=== PATIENT | male | born 1965 | race Two or more races ===

== ENCOUNTER 2019-12-08 11:15 | Inpatient (IN) | payer MEDICARE, OTHER ==
[~2019-12-08] VITALS: Ht 162.6 cm; Wt 123.8 kg
--- NOTE | 2019-12-08 11:21 | NUR ---
ED Nurse Note: Pt BIBA from [facility] d/t hyperglecemia. Per report at 10AM pt's accucheck is 515mg/dl. 15 units of insulin given, recheck done at 1040 with 438mg/dl. Pt is AOx4, VSS, on RA. Per report pt has hx of COPD, DM T1, CHF, HTN, Hypothyroidism, NKA. Pt is FULL CODE. Per pt he started having edema on bilat lower ext. Placed on bed, Dr. Gibson on bedside.
[2019-12-08 11:22] VITALS: BP 121/68
[2019-12-08 12:03] LABS: BASOPHILS % (AUTO) 1.3 % (0.0-2.0); HEMATOCRIT 36.8 % (42.0-52.0); LYMPHOCYTES % (AUTO) 24.4 % (20.0-45.0); MEAN CORPUSCULAR VOLUME 92 FL (80-99); MONOCYTES % (AUTO) 8.3 % (1.0-10.0); PLATELET COUNT 262 K/UL (150-450); RED BLOOD COUNT 4.01 M/UL (4.70-6.10); RED CELL DISTRIBUTION WIDTH 12.4 % (11.6-14.8)
[2019-12-08 12:12] LABS: ANION GAP 8 mmol/L (5-15); BLOOD UREA NITROGEN 21 mg/dL (7-18); CALCIUM 9.5 MG/DL (8.5-10.1); CARBON DIOXIDE 29 MMOL/L (21-32); CHLORIDE 101 MMOL/L (98-107); CREATININE 1.1 MG/DL (0.55-1.30); POTASSIUM 4.5 MMOL/L (3.5-5.1); SODIUM 138 MMOL/L (136-145)
[2019-12-08] MEDS ORDERED: BUPROPION HCL100 M1 ORAL (12:12)
[2019-12-08] MEDS ORDERED: MIRTAZAPINE7.5 MG ORAL (12:12)
[2019-12-08] MEDS ORDERED: METOPROLOL TART25 MG ORAL (12:12)
[2019-12-08] MEDS ORDERED: ATORVASTATIN CA40 MG ORAL (12:12)
[2019-12-08] MEDS ORDERED: AMBIEN5 MG ORAL (12:12)
[2019-12-08] MEDS ORDERED: ISOSORBIDE MONO60 M1 PO (12:12)
[2019-12-08] MEDS ORDERED: GABAPENTIN300 MG ORAL (12:12)
[2019-12-08] MEDS ORDERED: ASPIR 8181 MG ORAL (12:12)
[2019-12-08] MEDS ORDERED: STARLIX60 MG ORAL (12:12)
[2019-12-08] MEDS ORDERED: FUROSEMIDE40 MG ORAL (12:12)
[2019-12-08] MEDS ORDERED: LEVOTHYROXINE175 MCG ORAL (12:12)
[2019-12-08] MEDS ORDERED: CLOPIDOGREL300 MG ORAL (12:12)
[2019-12-08] MEDS ORDERED: LANTUS SOL100 UNIT/1 SUBQ (12:12)
[2019-12-08] MEDS ORDERED: PANTOPRAZOLE SO40 MG ORAL (12:12)
[2019-12-08] MEDS ORDERED: MORPHINE IR15 MG ORAL (12:12)
[2019-12-08] MEDS ORDERED: ACETAMINOPHEN325 M1 ORAL (12:12)
[2019-12-08 12:22] LABS: ALANINE AMINOTRANSFERASE 39 U/L (12-78); ALBUMIN 3.4 G/DL (3.4-5.0); ALBUMIN/GLOBULIN RATIO 0.9 (1.0-2.7); ALKALINE PHOSPHATASE 93 U/L (46-116); ASPARTATE AMINO TRANSFERASE 20 U/L (15-37); BILIRUBIN,TOTAL 0.2 MG/DL (0.2-1.0); CHOLESTEROL 157 MG/DL (< 200); HDL CHOLESTEROL 47 MG/DL (40-60); TRIGLYCERIDES 240 MG/DL (30-150)
[2019-12-08 12:25] VITALS: BP 143/76
--- NOTE | 2019-12-08 12:46 | Diagnostic Imaging Report ---
EXAM: XR Chest, 1 View CLINICAL HISTORY: SOB TECHNIQUE: Frontal view of the chest. COMPARISON: No relevant prior studies available. FINDINGS: Lungs: Hypoventilatory lungs. Bibasilar lung atelectasis. Linear atelectasis or scarring left lower lung. Pleural space: Unremarkable. No pneumothorax. Heart: Prominent cardiac silhouette may be projectional. Mediastinum: Unremarkable. Bones/joints: Median sternotomy. Vasculature: Vascularity within normal limits. Upper abdomen: Elevated right hemidiaphragm. IMPRESSION: Hypoventilatory lungs. Bibasilar lung atelectasis.
--- NOTE | 2019-12-08 12:49 | Emergency Room Report ---
History of Present Illness General Chief Complaint: Abnormal Labs Source: Patient, Medical Record Present Illness HPI Patient 54-year-old male who presented for increased chest discomfort as well as elevated blood sugar. Prior history of diabetes. He previously had history of cardiac disease previous sternotomy and bypass graft. Reports having intermittent chest discomfort for the past 1 week. Reports having increased lower extremity swelling. Allergies: Coded Allergies: No Known Allergies (Unverified , 12/08/19) Patient History Past Medical History: see triage record Reviewed Nursing Documentation: PMH: Agreed; PSxH: Agreed Nursing Documentation-PMH Past Medical History: No History, Except For Hx Cardiac Problems: Yes - ACS, CHF, STEMI, Edema, coronary angioplasty implant and graft Hx COPD: Yes Hx Diabetes: Yes - Type 1, prison insulin use Hx Gastrointestinal Problems: Yes - Liver cirrhosis, portal HTN, GERD with esophagitis, hepatitis A History Of Psychiatric Problem: Yes - Major depression Hx Neurological Problems: Yes - disc disorder Review of Systems All Other Systems: negative except mentioned in HPI Physical Exam Vital Signs Date Time Temp Pulse Resp B/P (MAP) Pulse Ox O2 Delivery O2 Flow Rate FiO2 12/08/19 11:20 98.1 82 16 121/68 (85) 92 Room Air Sp02 EP Interpretation: reviewed, normal General Appearance: normal inspection, no apparent distress, alert, GCS 15, obese, Chronically Ill Head: atraumatic ENT: normal ENT inspection, hearing 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, normal voice Neck: normal inspection, full range of motion, supple, no bony tend Respiratory: normal inspection, lungs clear, normal breath sounds, no respiratory distress, no retraction, no wheezing Cardiovascular #1: normal inspection, regular rate, rhythm, edema - 3+ edema Gastrointestinal: normal inspection, normal bowel sounds, non tender, soft, no guarding, no hernia Genitourinary: no CVA tenderness Musculoskeletal: normal inspection, back normal, normal range of motion Neurologic: alert, motor strength/tone normal, devulcanizer tender III-XII nml as tested, oriented x3, responsive, speech normal, normal inspection Psychiatric: normal inspection, judgement/insight normal, mood/affect normal Skin: no rash Medical Decision Making Diagnostic Impression: Primary Impression: Acute exacerbation of CHF (congestive heart failure) Additional Impressions: Hyperglycemia Chest pain ER Course Patient presented for chest discomfort and high blood sugar. Differential diagnosis include was not limited to congestive heart failure, unstable angina, myocardial infarction among others. Because of complexity of patient's case laboratory tests and imaging studies were ordered. Patient was noted to have nonspecific EKG changes. He had prior history of CABG. He was given Lasix due to pedal edema. Dr. Fermín Griggs was contacted for inpatient Labs Test 12/08/19 11:37 White Blood Count 7.0 K/UL (4.8-10.8) Red Blood Count 4.01 M/UL (4.70-6.10) Hemoglobin 13.0 G/DL (14.2-18.0) Hematocrit 36.8 % (42.0-52.0) Mean Corpuscular Volume 92 FL (80-99) Mean Corpuscular Hemoglobin 32.5 PG (27.0-31.0) Mean Corpuscular Hemoglobin Concent 35.4 G/DL (32.0-36.0) Red Cell Distribution Width 12.4 % (11.6-14.8) Platelet Count 262 K/UL (150-450) Mean Platelet Volume 6.5 FL (6.5-10.1) Neutrophils (%) (Auto) 62.0 % (45.0-75.0) Lymphocytes (%) (Auto) 24.4 % (20.0-45.0) Monocytes (%) (Auto) 8.3 % (1.0-10.0) Eosinophils (%) (Auto) 4.0 % (0.0-3.0) Basophils (%) (Auto) 1.3 % (0.0-2.0) Sodium Level 138 MMOL/L (136-145) Potassium Level 4.5 MMOL/L (3.5-5.1) Chloride Level 101 MMOL/L (98-107) Carbon Dioxide Level 29 MMOL/L (21-32) Anion Gap 8 mmol/L (5-15) Blood Urea Nitrogen 21 mg/dL (7-18) Creatinine 1.1 MG/DL (0.55-1.30) Estimat Glomerular Filtration Rate > 60 mL/min (>60) Glucose Level 438 MG/DL (74-106) Calcium Level 9.5 MG/DL (8.5-10.1) Total Bilirubin 0.2 MG/DL (0.2-1.0) Aspartate Amino Transf (AST/SGOT) 20 U/L (15-37) Alanine Aminotransferase (ALT/SGPT) 39 U/L (12-78) Alkaline Phosphatase 93 U/L (46-116) Troponin I 0.000 ng/mL (0.000-0.056) Pro-B-Type Natriuretic Peptide 106 pg/mL (0-125) Total Protein 7.4 G/DL (6.4-8.2) Albumin 3.4 G/DL (3.4-5.0) Globulin 4.0 g/dL Albumin/Globulin Ratio 0.9 (1.0-2.7) Triglycerides Level 240 MG/DL (30-150) Cholesterol Level 157 MG/DL (< 200) LDL Cholesterol 91 mg/dL (<100) HDL Cholesterol 47 MG/DL (40-60) Cholesterol/HDL Ratio 3.3 (3.3-4.4) Lipase 104 U/L (73-393) EKG Diagnostic Results Rate: normal Rhythm: NSR ST Segments: no acute changes Last Vital Signs Date Time Temp Pulse Resp B/P (MAP) Pulse Ox O2 Delivery O2 Flow Rate FiO2 12/08/19 12:25 98.1 84 14 143/76 96 Room Air Status: unchanged Disposition: ADMITTED INPATIENT Condition: Stable Referrals: Fermín Griggs DO (PCP) Dakota Gibson MD Dec 08, 2019 12:49
--- NOTE | 2019-12-08 13:24 | NUR ---
NURSE NOTES: Received report from ONEL Yoon in ER
--- NOTE | 2019-12-08 13:27 | NUR ---
NURSE NOTES: Notified Dr. Griggs of new admission and asked for orders
--- NOTE | 2019-12-08 13:28 | NUR ---
ED Nurse Note: Report given to David SYKES
[2019-12-08 14:00] VITALS: BP 131/76
--- NOTE | 2019-12-08 14:00 | NUR ---
NURSE NOTES: Received report from SIRIA Yoon RN. PT brought to telemetry room 203-2 via gurney for CHF exacerbation and hyperglycemia at [facility], BS at 100 at [facility] 515, pt is awake, a/o x4, excessively talking, able to follow commands and answer questions, pt is ambulatory with steady gait, noted bilateral pitting edema 1+ to lower extremities, weak pulses, diminished lungs and distant heart sounds, orders received from Dr. 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 Sidhu, RN will notify Dr. Griggs, assessment done and vitals obtain, see flowsheet, pt has Android phone and reading glasses at bedside, noted on belongings list and in system, pt oriented to room, call light, bed controls, hourly rounding, no smoking policy, plan of care, bed in lowest position, call light within reach, bed locked, pt sitting in chair.
--- NOTE | 2019-12-08 14:05 | NUR ---
TRANSFER TO TELEMETRY: Patient transferred to TELEMETRY as ordered, per DR. VERONICA REED. Report given to ONEL Michelle. Belongings and medications given to receiving RN. Family and or S/O informed of transfer.
--- NOTE | 2019-12-08 15:25 | NUR ---
NURSE NOTES: Pt states he does not want Dr. Sidhu on service, RN notified Dr. Griggs and he ordered Dr. Guthrie, RN notified MD Guthrie of consult RN also notified Dr. Maldonado and Steve Walker of consult
[2019-12-08] MEDS ORDERED: Morphine IR 15mg tab ORAL PRN (15:45)
[2019-12-08] MEDS ORDERED: Zolpidem 5mg tab ORAL PRN (15:45)
[2019-12-08 16:00] VITALS: BP 121/72
[2019-12-08] MEDS: Nateglinide 60mg tab ORAL SCH (17:18)
[2019-12-08] MEDS: NovoLOG Insulin Flexpen SUBQ SCH ×2 (17:20→21:39)
--- NOTE | 2019-12-08 19:41 | NUR ---
HAND-OFF: Report given to ONEL Morrow. PT asleep in bed.
--- NOTE | 2019-12-08 19:45 | NUR ---
NURSE NOTES: Received report from ONEL Michelle. Pt is sleeping at this time (has insomnia so did not wake pt) respirations even and unlabored, will assess pt thoroughly when awake, name on board, Per report, pt is a/o x4, garrulous talker when awake, is ambulatory with steady gait, bed is locked, in lowest position, call light within reach, resting comfortably in bed, will continue plan of care
[2019-12-08 20:00] VITALS: BP 100/49
[2019-12-08] MEDS: BuPROPion SR 150mg tab ORAL SCH (21:38)
[2019-12-08] MEDS: Atorvastatin 80mg tab ORAL SCH (21:38)
[2019-12-09 04:10] VITALS: BP 107/46
[2019-12-09 04:57] LABS: ANION GAP 8 mmol/L (5-15); BASOPHILS % (AUTO) 1.2 % (0.0-2.0); BLOOD UREA NITROGEN 19 mg/dL (7-18); CALCIUM 9.3 MG/DL (8.5-10.1); CARBON DIOXIDE 31 MMOL/L (21-32); CHLORIDE 100 MMOL/L (98-107); EOSINOPHILS % (AUTO) 3.7 % (0.0-3.0); HEMATOCRIT 35.5 % (42.0-52.0); HEMOGLOBIN 12.8 G/DL (14.2-18.0); LYMPHOCYTES % (AUTO) 26.6 % (20.0-45.0); MEAN CORPUSCULAR VOLUME 91 FL (80-99); MONOCYTES % (AUTO) 9.9 % (1.0-10.0); NEUTROPHILS % (AUTO) 58.6 % (45.0-75.0); PLATELET COUNT 248 K/UL (150-450); POTASSIUM 4.4 MMOL/L (3.5-5.1); RED CELL DISTRIBUTION WIDTH 12.3 % (11.6-14.8); SODIUM 139 MMOL/L (136-145); WHITE BLOOD COUNT 7.3 K/UL (4.8-10.8)
[2019-12-09 05:02] LABS: ALANINE AMINOTRANSFERASE 38 U/L (12-78); ALBUMIN/GLOBULIN RATIO 0.8 (1.0-2.7); ALKALINE PHOSPHATASE 83 U/L (46-116); ASPARTATE AMINO TRANSFERASE 17 U/L (15-37); BILIRUBIN,TOTAL 0.4 MG/DL (0.2-1.0)
[2019-12-09] MEDS: NovoLOG Insulin Flexpen SUBQ SCH ×7 (06:28→21:27)
--- NOTE | 2019-12-09 07:54 | NUR ---
HAND-OFF: Report given to Viviana SYKES.
[2019-12-09 08:00] VITALS: BP 121/66
--- NOTE | 2019-12-09 08:59 | Consultation ---
History of Present Illness General Date patient seen: Dec 09, 2019 Time patient seen: 08:00 - am Chief Complaint: LBP Referring physician: Anson Reason for Consultation: Pain Management Present Illness HPI This is a 54-year-old male who is being seen on previous hospital admissions now admitted under the care of Dr. Griggs due to CHF. We were consulted so patient has adequate pain control while here in the hospital. Allergies: Coded Allergies: No Known Allergies (Unverified , 12/08/19) Medication History Scheduled Aspirin* (Aspir 81*), 81 MG ORAL DAILY, (Reported) Atorvastatin Calcium* (Atorvastatin Calcium*), 80 MG ORAL BEDTIME, (Reported) Bupropion Sr* (Bupropion Sr*), 150 MG ORAL EVERY 12 HOURS, (Reported) Clopidogrel* (Clopidogrel*), 75 MG ORAL DAILY, (Reported) Furosemide* (Lasix*), 40 MG ORAL DAILY, (Reported) Gabapentin* (Gabapentin*), 300 MG ORAL BEDTIME, (Reported) Insulin Glargine (Lantus), 0 SUBQ BEDTIME, (Reported) Levothyroxine Sodium (Levothyroxine Sodium), 50 MCG ORAL DAILY, (Reported) Metoprolol Tartrate* (Metoprolol Tartrate*), 25 MG ORAL EVERY 12 HOURS, ( Reported) Mirtazapine* (Mirtazapine*), 7.5 MG ORAL BEDTIME, (Reported) Nateglinide* (Starlix*), 120 MG ORAL THREE TIMES A DAY, (Reported) Pantoprazole* (Pantoprazole*), 40 MG ORAL DAILY, (Reported) Scheduled PRN Acetaminophen* (Acetaminophen 325MG Tablet*), 650 MG ORAL Q4H PRN for Pain Scale (3-5), (Reported) Morphine HCl (Morphine Sulfate ER), 7.5 MG ORAL Q6H PRN for For Pain, (Reported) Zolpidem Tartrate* (Ambien*), 5 MG ORAL BEDTIME PRN for Insomnia, (Reported) Miscellaneous Medications Isosorbide Mononitrate (Isosorbide Mononitrate Er), 60 MG PO, (Reported) Patient History Healthcare decision maker Resuscitation status Full Code Advanced Directive on File No Past Medical/Surgical History Past Medical/Surgical History: (1) Acute exacerbation of congestive heart failure (2) Pain (3) Chest pain (4) Hyperglycemia (5) Acute exacerbation of CHF (congestive heart failure) Review of Systems ROS Narrative Denies rash, fever, chills, sweating, dizziness, drowsiness, blurred vision, sore throat, change in hearing or weight. He is complaining of generalized body pain. Physical Exam Physical Exam Narrative GENERAL: Alert, awake, and oriented. LUNGS: Decreased breath sounds bilaterally. HEART: S1, S2 regular. ABDOMEN: Soft Non-tender. EXTREMITIES: No cyanosis, no clubbing. NEUROLOGIC: Weakness noted in b/l UE and LE. Last 24 Hour Vital Signs Date Time Temp Pulse Resp B/P (MAP) Pulse Ox O2 Delivery O2 Flow Rate FiO2 12/09/19 08:10 Room Air 12/09/19 04:10 97.0 72 18 107/46 (66) 96 12/09/19 04:00 77 12/09/19 00:00 79 12/08/19 21:39 94 130/86 12/08/19 21:00 Room Air 12/08/19 20:00 98.1 88 16 100/49 (66) 92 12/08/19 20:00 89 12/08/19 16:00 97.6 86 19 121/72 (88) 94 12/08/19 14:43 84 12/08/19 14:05 98.1 78 14 129/96 99 Room Air 12/08/19 14:00 97.3 78 16 131/76 (94) 96 12/08/19 13:28 Room Air 12/08/19 12:25 98.1 84 14 143/76 96 Room Air 12/08/19 11:22 98.1 82 20 121/68 92 Room Air 12/08/19 11:20 98.1 82 16 121/68 (85) 92 Room Air Intake and Output 12/08/19 12/09/19 19:00 07:00 Intake Total 480 ml Balance 480 ml Intake Oral 480 ml # Voids 2 1 Laboratory Tests Test 12/08/19 11:37 12/09/19 04:40 White Blood Count 7.0 K/UL (4.8-10.8) 7.3 K/UL (4.8-10.8) Red Blood Count 4.01 M/UL (4.70-6.10) L 3.90 M/UL (4.70-6.10) L Hemoglobin 13.0 G/DL (14.2-18.0) L 12.8 G/DL (14.2-18.0) L Hematocrit 36.8 % (42.0-52.0) L 35.5 % (42.0-52.0) L Mean Corpuscular Volume 92 FL (80-99) 91 FL (80-99) Mean Corpuscular Hemoglobin 32.5 PG (27.0-31.0) H 32.8 PG (27.0-31.0) H Mean Corpuscular Hemoglobin Concent 35.4 G/DL (32.0-36.0) 36.0 G/DL (32.0-36.0) Red Cell Distribution Width 12.4 % (11.6-14.8) 12.3 % (11.6-14.8) Platelet Count 262 K/UL (150-450) 248 K/UL (150-450) Mean Platelet Volume 6.5 FL (6.5-10.1) 5.8 FL (6.5-10.1) L Neutrophils (%) (Auto) 62.0 % (45.0-75.0) 58.6 % (45.0-75.0) Lymphocytes (%) (Auto) 24.4 % (20.0-45.0) 26.6 % (20.0-45.0) Monocytes (%) (Auto) 8.3 % (1.0-10.0) 9.9 % (1.0-10.0) Eosinophils (%) (Auto) 4.0 % (0.0-3.0) H 3.7 % (0.0-3.0) H Basophils (%) (Auto) 1.3 % (0.0-2.0) 1.2 % (0.0-2.0) Sodium Level 138 MMOL/L (136-145) 139 MMOL/L (136-145) Potassium Level 4.5 MMOL/L (3.5-5.1) 4.4 MMOL/L (3.5-5.1) Chloride Level 101 MMOL/L (98-107) 100 MMOL/L (98-107) Carbon Dioxide Level 29 MMOL/L (21-32) 31 MMOL/L (21-32) Anion Gap 8 mmol/L (5-15) 8 mmol/L (5-15) Blood Urea Nitrogen 21 mg/dL (7-18) H 19 mg/dL (7-18) H Creatinine 1.1 MG/DL (0.55-1.30) 1.0 MG/DL (0.55-1.30) Estimat Glomerular Filtration Rate > 60 mL/min (>60) > 60 mL/min (>60) Glucose Level 438 MG/DL (74-106) H 352 MG/DL (74-106) H Calcium Level 9.5 MG/DL (8.5-10.1) 9.3 MG/DL (8.5-10.1) Total Bilirubin 0.2 MG/DL (0.2-1.0) 0.4 MG/DL (0.2-1.0) Aspartate Amino Transf (AST/SGOT) 20 U/L (15-37) 17 U/L (15-37) Alanine Aminotransferase (ALT/SGPT) 39 U/L (12-78) 38 U/L (12-78) Alkaline Phosphatase 93 U/L (46-116) 83 U/L (46-116) Troponin I 0.000 ng/mL (0.000-0.056) Pro-B-Type Natriuretic Peptide 106 pg/mL (0-125) Total Protein 7.4 G/DL (6.4-8.2) 6.8 G/DL (6.4-8.2) Albumin 3.4 G/DL (3.4-5.0) 3.0 G/DL (3.4-5.0) L Globulin 4.0 g/dL 3.8 g/dL Albumin/Globulin Ratio 0.9 (1.0-2.7) L 0.8 (1.0-2.7) L Triglycerides Level 240 MG/DL (30-150) H Cholesterol Level 157 MG/DL (< 200) LDL Cholesterol 91 mg/dL (<100) HDL Cholesterol 47 MG/DL (40-60) Cholesterol/HDL Ratio 3.3 (3.3-4.4) Lipase 104 U/L (73-393) Hemoglobin A1c 10.2 % (4.3-6.0) H Height (Feet): 5 Height (Inches): 4.00 Weight (Pounds): 223 Medications Current Medications Medications (Trade) Dose Ordered Sig/Rodney Route PRN Reason Start Time Stop Time Status Last Admin Dose Admin Acetaminophen (Tylenol) 650 mg Q4H PRN ORAL Pain Scale (3-5) 12/08/19 15:45 01/07/20 15:44 Aspirin (Ecotrin) 81 mg DAILY ORAL 12/09/19 09:00 01/08/20 08:59 Atorvastatin Calcium (Lipitor) 80 mg BEDTIME ORAL 12/08/19 21:00 01/07/20 20:59 12/08/19 21:38 Bupropion HCl (Wellbutrin SR) 150 mg EVERY 12 HOURS ORAL 12/08/19 21:00 01/07/20 20:59 12/08/19 21:38 Clopidogrel Bisulfate (Plavix) 75 mg DAILY ORAL 12/09/19 09:00 01/08/20 08:59 Dextrose (Dextrose 50%) 25 ml Q30M PRN IV Hypoglycemia 12/09/19 06:15 01/08/20 06:14 Dextrose (Dextrose 50%) 50 ml Q30M PRN IV Hypoglycemia 12/09/19 06:15 01/08/20 06:14 Furosemide (Lasix) 40 mg DAILY ORAL 12/09/19 09:00 01/08/20 08:59 Gabapentin (Neurontin) 300 mg BEDTIME ORAL 12/08/19 21:00 01/07/20 20:59 12/08/19 21:39 Insulin Aspart (NovoLOG) BEFORE MEALS AND HS SUBQ 12/08/19 16:30 01/07/20 16:29 12/09/19 06:28 Insulin Aspart (NovoLOG) 10 units NOVOTIAC SUBQ 12/09/19 06:30 01/08/20 06:29 12/09/19 06:29 Insulin Detemir (Levemir) 36 units DAILY SUBQ 12/09/19 09:00 01/08/20 08:59 Levothyroxine Sodium (Synthroid) 50 mcg DAILY@0630 ORAL 12/09/19 06:30 01/08/20 06:29 12/09/19 06:27 Metoprolol Tartrate (Lopressor) 25 mg EVERY 12 HOURS ORAL 12/08/19 21:00 01/07/20 20:59 12/08/19 21:39 Mirtazapine (Remeron) 7.5 mg BEDTIME ORAL 12/08/19 21:00 01/07/20 20:59 12/08/19 21:38 Morphine HCl (Morphine IR) 7.5 mg Q4H PRN ORAL For Pain 12/08/19 15:45 12/15/19 15:44 Nateglinide (Starlix) 120 mg THREE TIMES A DAY ORAL 12/08/19 18:00 01/07/20 17:59 12/08/19 17:18 Pantoprazole (Protonix) 40 mg DAILY ORAL 12/09/19 09:00 01/08/20 08:59 Sitagliptin Phosphate (Januvia) 100 mg ACBREAKFAST ORAL 12/09/19 06:30 01/08/20 06:29 12/09/19 06:27 Zolpidem Tartrate (Ambien) 5 mg HSPRN PRN ORAL Insomnia 12/08/19 15:45 12/15/19 15:44 Assessment/Plan Assessment/Plan: 1) Lumbar degenerative disk disease 2) Lumbar radiculopathy 3) Lumbar spondylosis 4) H/o polysubstance abuse Patient will be continued on Morphine as needed. D/w Dr. Bull and he concurred. Steve Walker Dec 09, 2019 08:59
[2019-12-09] MEDS: Aspirin EC 81mg tab ORAL SCH (09:07)
[2019-12-09] MEDS: Nateglinide 60mg tab ORAL SCH (09:07)
[2019-12-09] MEDS: BuPROPion SR 150mg tab ORAL SCH ×2 (09:08→21:26)
[2019-12-09] MEDS: Furosemide 40mg tab ORAL SCH (09:08)
[2019-12-09] MEDS: Levemir Flexpen SUBQ SCH (09:10)
[2019-12-09] MEDS ORDERED: Methocarbamol 500mg tab ORAL PRN (09:15)
[2019-12-09] MEDS: Morphine IR 15mg tab ORAL PRN (10:56)
[2019-12-09 12:00] VITALS: BP 135/81
--- NOTE | 2019-12-09 13:05 | NUR ---
P.T Note: P.T evaluation completed. Pt. is alert, O x 4 , pleasant and cooperative no major c/o pain but generalized soreness. Pt independent in all basic ADL/mobility and gait/locomotion and currently at baseline at this time. Skilled P.T service not needed at this time. DC P.T service. Thank you for this referral.
--- NOTE | 2019-12-09 13:25 | NUR ---
CASE MANAGEMENT:REVIEW 54 YR OLD MALE BIBA FROM [facility] CC: CHEST,BACK AND NECK PAIN. ELEVATED BS 515 SI: CHF EXACERBATION. HYPERGLYCEMIA. CHEST PAIN 98.1 82 16 121/68 92% ON RA GLUCOSE+438 IS: IV LASIX X2 INSULIN SQ CHEST XRAY : TO TELEMETRY IS: LOPRESSOR PO Q12 SS INSULIN AC+HS MORPHINE PO Q4HRS PRN ASA PO QD LASIX PO QD PLAVIX PO QD
--- NOTE | 2019-12-09 14:08 | NUR ---
RD ASSESSMENT & RECOMMENDATIONS SEE CARE ACTIVITY FOR COMPLETE ASSESSMENT DAILY ESTIMATED NEEDS: Needs based on DM, obesity, CHF/ 70kg abw 22-28 kcals/kg 0494-7513 total kcals 1-1.5 g protein/kg 70-105 g total protein 20-22 mL/kg 4380-[address] consult received from RN for diet education. Pt admitted for hyperglycemia, BG >500 at SNF. A1C 10.2, POC glu in the 300's currently. Triglyceride elevated as well @ 240. Pt on lipid lowering agent. Reviewed w/ pt what carbs are, different types of carbs, carb counting, making right food choices, preferred fluids, portion control, mindful eating, cardiac diet, exercise, wt loss, etc. Pt initially appeared defensive, stated if food is taken away, he feels like binge eating them. Towards the end of conversation and education, pt appeared more calm, receptive to teaching and to making changes. Pt agreed to changing diet from CCHO med to CCHO low for less carb servings per meal and increasing protein portions instead. NUTRITION DIAGNOSIS: Altered nutrition related lab values R/T diabetes, altered lipid metabolism as evidenced by elev BGs (352 438), POC glu (300's), A1C of 10.2, elev triglyceride (240). CURRENT DIET:CCHO MED, LOW NA -> CCHO LOW, CARDIAC, DOUBLE PROTEIN PORTIONS PO DIET RECOMMENDATIONS: CCHO LOW, CARDIAC + double protein portions ADDITIONAL RECOMMENDATIONS: * DM diet ed provided * Monitor BGs closely, monitor adherence to diet * Monitor lytes w/ Lasix, replete as needed
--- NOTE | 2019-12-09 15:45 | Consultation ---
DATE OF CONSULTATION: 12/09/2019 ENDOCRINOLOGY CONSULTATION CONSULTING PHYSICIAN: Shon Maldonado M.D. REFERRING PHYSICIAN: Fermín Griggs D.O. REASON FOR CONSULTATION: Diabetes management. HISTORY OF PRESENT ILLNESS: The patient is a 54-year-old male, who I know from his previous admission to [facility]. He has history of diabetes with high-dose insulin requirement and also has history of coronary artery disease, status post coronary artery bypass graft. The patient presented to the hospital from [facility] with elevated glucose and chest pain. I was called to manage diabetes. PAST MEDICAL HISTORY: 1. Type 2 diabetes, on insulin. 2. Coronary artery disease. 3. Hyperlipidemia. 4. Hypertension. 5. Hypothyroidism. 6. Depression. 7. Amphetamine abuse. PAST SURGICAL HISTORY: Coronary artery bypass graft. SOCIAL HISTORY: The patient has history of smoking, single. Used to use amphetamine. FAMILY HISTORY: Diabetes in brother, father, and mother. ALLERGIES TO MEDICATIONS: None. MEDICATIONS: As an outpatient reviewed and reconciled. REVIEW OF SYSTEMS: A 12-point review of systems was performed. Pertinent positives and negatives as mentioned in present illness. LABORATORY DATA: WBC 7.3, hemoglobin 12.8, hematocrit 35.5, platelets of 248. Sodium 139, potassium 4.4, chloride 100, bicarb 31, BUN 19, creatinine 1.0, glucose of 352. PHYSICAL EXAMINATION: VITAL SIGNS: Blood pressure 107/46, heart rate 76, temperature 97, respiratory rate of 12. HEENT: Pupils reactive to light. Sclerae anicteric. NECK: No JVD. No thyromegaly. LUNGS: Clear. HEART: Regular rate and rhythm. ABDOMEN: Positive bowel sounds. EXTREMITIES: No clubbing, cyanosis. Positive for edema. DIAGNOSES: 1. Diabetes, out of control. 2. Chest pain. 3. Hyperlipidemia. PLAN: 1. Start Levemir 36 units daily. 2. Start NovoLog 10 units before each meal. 3. Januvia 100 mg daily. 4. Nateglinide 120 mg before each meal. 5. Further adjustment according to blood glucose values. I will follow the patient closely during hospital stay. Thank you, Dr. Griggs, for the courtesy of this consultation. Shon Maldonado M.D. DR: REDDY JOB#: [id number] CC:
[2019-12-09 16:00] VITALS: BP 128/64
--- NOTE | 2019-12-09 16:00 | History and Physical Report ---
DATE OF ADMISSION: 12/08/2019 DATE AND TIME SEEN: 12/09/2019 at 9 a.m. CONSULTANTS: 1. Sarkis Guthrie M.D. 2. Shon Maldonado M.D. 3. Adam Smith M.D. 4. Leticia Bull M.D. CHIEF COMPLAINT: Chest pain, diabetes, hyperglycemia, low back pain, history of kidney stone. BRIEF HISTORY: This is a 54-year-old male from [facility], presented with above-mentioned diagnoses. Chest pain is still substernal. No radiation having for about a week, getting worse, came to [place], diagnosed with the above and also hyperglycemia, admitted to telemetry for further care. Currently, on bed, feeling a little bit better. No complaint. REVIEW OF SYSTEMS: Slight chest pain. Slight short of breath. No nausea, vomiting, or diarrhea. PAST MEDICAL HISTORY: Includes diabetes, hypertension, CHF, low back pain, kidney stone. PAST SURGICAL HISTORY: Cardiac stent. MEDICATIONS: Include methocarbamol, gabapentin, aspirin, clopidogrel, pantoprazole, insulin, levothyroxine, atorvastatin, gabapentin, metoprolol, mirtazapine, Tylenol, morphine, and furosemide. ALLERGIES: Denies. SOCIAL HISTORY: No smoking. No alcohol. No intravenous drug abuse. FAMILY HISTORY: Noncontributory. PHYSICAL EXAMINATION: GENERAL: Calm in bed, oriented x3, in no acute distress. VITAL SIGNS: Temperature is 97 degrees, pulse 72, respirations 18, blood pressure 107/46. CARDIOVASCULAR: No murmurs. LUNGS: . ABDOMEN: Bowel sounds positive. Nontender. Nondistended. EXTREMITIES: No cyanosis or edema. NEUROLOGIC: The patient moves all extremities, slightly weak. LABORATORY DATA: Hemoglobin and hematocrit 12.8/35, otherwise CBC is normal. BMP shows BUN 19, glucose 352, albumin 3.0. ASSESSMENT: 1. Chest pain. 2. Diabetes. 3. Hyperglycemia. 4. Low back pain. 5. Kidney stone. 6. Anaemia. 7. Malnutrition. 8. CHF. 9. Hypertension. PLAN: 1. Blood pressure, blood sugar, pain control. 2. Dietary followup. 3. Resume home medications. 4. PT and dietary evaluation. 5. CBC, BMP in the morning. Fermín Griggs D.O. DR: SURJIT JOB#: [id number] CC:
[2019-12-09 18:15] VITALS: BP 116/69
--- NOTE | 2019-12-09 18:27 | NUR ---
NURSE NOTES: pt states he feels "dizziness, like when my pressure goes low" RN checked BP 116-69 HR 78, pt states he feels "clammy" RN checked BS 190, pt ate dinner and has juice at bedside, pt offered medication and water, pt declined, will continue to monitor
--- NOTE | 2019-12-09 19:18 | NUR ---
HAND-OFF: Report given to ONEL Morrow.
--- NOTE | 2019-12-09 19:22 | NUR ---
NURSE NOTES: Received report from ONEL Michelle. Pt is sitting up in chair, respirations even and unlabored, awake alert and oriented x4, on room air. Extremely garrulous talker. Pt is ambulatory with steady gait, BRP, call light within reach, resting comfortably, will continue plan of care
[2019-12-09 20:00] VITALS: BP 98/55
[2019-12-09] MEDS: Atorvastatin 80mg tab ORAL SCH (21:26)
[2019-12-10] VITALS: BP 102/57
[2019-12-10 04:00] VITALS: BP 124/73
[2019-12-10] MEDS: NovoLOG Insulin Flexpen SUBQ SCH ×7 (06:30→22:01)
--- NOTE | 2019-12-10 06:47 | General Progress Note ---
Assessment/Plan Problem List: (1) Hypothyroid ICD Codes: E03.9 - Hypothyroidism, unspecified SNOMED: 10846879 (2) Acute exacerbation of CHF (congestive heart failure) ICD Codes: I50.9 - Heart failure, unspecified SNOMED: 288223349, 81673829235236 (3) Hyperglycemia ICD Codes: R73.9 - Hyperglycemia, unspecified SNOMED: 86319572 (4) Chest pain ICD Codes: R07.9 - Chest pain, unspecified SNOMED: 58727556 Assessment/Plan: continue Levemir 36 units qam continue Novolog 10 units ac tid + sliding scale ac / hs continue Starlix 120 mg ac tid continue Januvia 100 mg daily continue Levothyroxine 50 mcg daily Subjective Allergies: Coded Allergies: No Known Allergies (Unverified , 12/08/19) All Systems: reviewed and negative except above Subjective events noted glucose values are trending down Item Value Date Time Bedside Blood Glucose 151 mg/dl H 12/09/19 2127 Bedside Blood Glucose 190 mg/dl H 12/09/19 1832 Bedside Blood Glucose 278 mg/dl H 12/09/19 1216 Bedside Blood Glucose 369 mg/dl H 12/09/19 0910 Bedside Blood Glucose 369 mg/dl H 12/09/19 0629 Objective Last 24 Hour Vital Signs Date Time Temp Pulse Resp B/P (MAP) Pulse Ox O2 Delivery O2 Flow Rate FiO2 12/10/19 04:45 83 12/10/19 04:00 97.7 74 16 124/73 (90) 93 12/10/19 00:04 79 12/10/19 00:00 97.5 77 16 102/57 (72) 95 12/09/19 21:11 Room Air 12/09/19 21:00 79 98/55 12/09/19 20:00 97.9 79 18 98/55 (69) 94 12/09/19 20:00 87 12/09/19 18:15 78 116/69 (85) 12/09/19 16:00 96.8 80 19 128/64 (85) 100 12/09/19 15:29 75 12/09/19 12:00 97.6 75 20 135/81 (99) 96 12/09/19 11:52 75 12/09/19 11:26 98.2 12/09/19 09:09 88 121/66 12/09/19 08:10 Room Air 12/09/19 08:00 98.2 88 19 121/66 (84) 97 12/09/19 07:42 71 Intake and Output 12/09/19 12/10/19 19:00 07:00 # Voids 1 2 Height (Feet): 5 Height (Inches): 4.00 Weight (Pounds): 223 General Appearance: no apparent distress Neck: normal alignment Cardiovascular: normal rate Respiratory/Chest: crackles/rales Abdomen: normal bowel sounds Pelvis: normal external exam Objective Current Medications Medications (Trade) Dose Ordered Sig/Rodney Route PRN Reason Start Time Stop Time Status Last Admin Dose Admin Acetaminophen (Tylenol) 650 mg Q4H PRN ORAL Pain Scale (3-5) 12/08/19 15:45 01/07/20 15:44 Aspirin (Ecotrin) 81 mg DAILY ORAL 12/09/19 09:00 01/08/20 08:59 12/09/19 09:07 Atorvastatin Calcium (Lipitor) 80 mg BEDTIME ORAL 12/08/19 21:00 01/07/20 20:59 12/09/19 21:26 Bupropion HCl (Wellbutrin SR) 150 mg EVERY 12 HOURS ORAL 12/08/19 21:00 01/07/20 20:59 12/09/19 21:26 Clopidogrel Bisulfate (Plavix) 75 mg DAILY ORAL 12/09/19 09:00 01/08/20 08:59 12/09/19 09:08 Dextrose (Dextrose 50%) 25 ml Q30M PRN IV Hypoglycemia 12/09/19 06:15 01/08/20 06:14 Dextrose (Dextrose 50%) 50 ml Q30M PRN IV Hypoglycemia 12/09/19 06:15 01/08/20 06:14 Furosemide (Lasix) 40 mg DAILY ORAL 12/09/19 09:00 01/08/20 08:59 12/09/19 09:08 Gabapentin (Neurontin) 300 mg BEDTIME ORAL 12/08/19 21:00 01/07/20 20:59 12/09/19 21:26 Gabapentin (Neurontin) 300 mg THREE TIMES A DAY ORAL 12/09/19 10:00 01/08/20 09:59 12/09/19 17:29 Insulin Aspart (NovoLOG) BEFORE MEALS AND HS SUBQ 12/08/19 16:30 01/07/20 16:29 12/09/19 21:27 Insulin Aspart (NovoLOG) 10 units NOVOTIAC SUBQ 12/09/19 06:30 01/08/20 06:29 12/09/19 17:34 Insulin Detemir (Levemir) 36 units DAILY SUBQ 12/09/19 09:00 01/08/20 08:59 12/09/19 09:10 Levothyroxine Sodium (Synthroid) 50 mcg DAILY@0630 ORAL 12/09/19 06:30 01/08/20 06:29 12/09/19 06:27 Lidocaine (Lidoderm 5% PATCH) 1 patch DAILY TDERMAL 12/09/19 10:00 01/08/20 09:59 12/09/19 10:54 Methocarbamol (Robaxin) 500 mg Q8H PRN ORAL muscle spasm 12/09/19 09:15 01/08/20 09:14 Metoprolol Tartrate (Lopressor) 25 mg EVERY 12 HOURS ORAL 12/08/19 21:00 01/07/20 20:59 12/09/19 09:09 Mirtazapine (Remeron) 7.5 mg BEDTIME ORAL 12/08/19 21:00 01/07/20 20:59 12/09/19 21:26 Morphine HCl (Morphine IR) 7.5 mg Q4H PRN ORAL For Pain 12/08/19 15:45 12/15/19 15:44 12/09/19 10:56 Nateglinide (Starlix) 120 mg THREE TIMES A DAY ORAL 12/09/19 13:00 01/05/20 12:59 12/09/19 17:29 Pantoprazole (Protonix) 40 mg DAILY ORAL 12/09/19 09:00 01/08/20 08:59 12/09/19 09:09 Sitagliptin Phosphate (Januvia) 100 mg ACBREAKFAST ORAL 12/09/19 06:30 01/08/20 06:29 12/09/19 06:27 Zolpidem Tartrate (Ambien) 5 mg HSPRN PRN ORAL Insomnia 12/08/19 15:45 12/15/19 15:44 Shon Maldonado MD Dec 10, 2019 06:47
[2019-12-10 07:25] LABS: BASOPHILS % (AUTO) 1.1 % (0.0-2.0); EOSINOPHILS % (AUTO) 3.4 % (0.0-3.0); HEMATOCRIT 36.2 % (42.0-52.0); HEMOGLOBIN 13.2 G/DL (14.2-18.0); LYMPHOCYTES % (AUTO) 24.1 % (20.0-45.0); MEAN CORPUSCULAR VOLUME 91 FL (80-99); NEUTROPHILS % (AUTO) 62.5 % (45.0-75.0); PLATELET COUNT 253 K/UL (150-450); RED BLOOD COUNT 3.96 M/UL (4.70-6.10); RED CELL DISTRIBUTION WIDTH 12.4 % (11.6-14.8); WHITE BLOOD COUNT 7.9 K/UL (4.8-10.8)
--- NOTE | 2019-12-10 07:49 | NUR ---
HAND-OFF: Report given to ONEL Sesay.
[2019-12-10 07:53] LABS: ANION GAP 8 mmol/L (5-15); BLOOD UREA NITROGEN 26 mg/dL (7-18); CALCIUM 9.3 MG/DL (8.5-10.1); CARBON DIOXIDE 29 MMOL/L (21-32); CHLORIDE 108 MMOL/L (98-107); CREATININE 1.2 MG/DL (0.55-1.30); POTASSIUM 4.8 MMOL/L (3.5-5.1); SODIUM 145 MMOL/L (136-145)
[2019-12-10 08:00] VITALS: BP 153/82
--- NOTE | 2019-12-10 08:00 | NUR ---
NURSE NOTES: Pt awake/alert sitting in a chair, breathing easily on room air, denies SOB but c/o chronic bilateral flank pain 2ndary to hx of renal calc. Vital signs stable with SR @ 82 on monitor. IV access left wrist, flushed with 10 ml NS and locked. Pt has +1/2 edema BLE. Bed left in low position, side rails up x 2 and call light left near pt's hand.
--- NOTE | 2019-12-10 09:02 | General Progress Note ---
Assessment/Plan Assessment/Plan: 1) Lumbar degenerative disk disease 2) Lumbar radiculopathy 3) Lumbar spondylosis 4) H/o polysubstance abuse Patient will be continued on Morphine as needed. D/w Dr. Bull and he concurred. Subjective Date patient seen: Dec 11, 2019 Time patient seen: 08:15 - am Constitutional: Reports: no symptoms HEENT: Reports: no symptoms Cardiovascular: Reports: no symptoms Respiratory: Reports: no symptoms Gastrointestinal/Abdominal: Reports: no symptoms Genitourinary: Reports: no symptoms Neurologic/Psychiatric: Reports: no symptoms Endocrine: Reports: no symptoms Hematologic/Lymphatic: Reports: no symptoms Allergies: Coded Allergies: No Known Allergies (Unverified , 12/08/19) Subjective He is doing well pain has been stable on the Morphine. Has no new complaints at this time. Objective Last 24 Hour Vital Signs Date Time Temp Pulse Resp B/P (MAP) Pulse Ox O2 Delivery O2 Flow Rate FiO2 12/10/19 08:48 Room Air 12/10/19 04:45 83 12/10/19 04:00 97.7 74 16 124/73 (90) 93 12/10/19 00:04 79 12/10/19 00:00 97.5 77 16 102/57 (72) 95 12/09/19 21:11 Room Air 12/09/19 21:00 79 98/55 12/09/19 20:00 97.9 79 18 98/55 (69) 94 12/09/19 20:00 87 12/09/19 18:15 78 116/69 (85) 12/09/19 16:00 96.8 80 19 128/64 (85) 100 12/09/19 15:29 75 12/09/19 12:00 97.6 75 20 135/81 (99) 96 12/09/19 11:52 75 12/09/19 11:26 98.2 12/09/19 09:09 88 121/66 Intake and Output 12/09/19 12/10/19 19:00 07:00 # Voids 1 4 Laboratory Tests 12/10/19 06:50: White Blood Count 7.9, Red Blood Count 3.96L, Hemoglobin 13.2L, Hematocrit 36.2L , Mean Corpuscular Volume 91, Mean Corpuscular Hemoglobin 33.3H, Mean Corpuscular Hemoglobin Concent 36.5H, Red Cell Distribution Width 12.4, Platelet Count 253, Mean Platelet Volume 5.9L, Neutrophils (%) (Auto) 62.5, Lymphocytes (%) (Auto) 24.1, Monocytes (%) (Auto) 9.0, Eosinophils (%) (Auto) 3.4H, Basophils (%) (Auto) 1.1, Sodium Level 145, Potassium Level 4.8, Chloride Level 108H, Carbon Dioxide Level 29, Anion Gap 8, Blood Urea Nitrogen 26H, Creatinine 1.2, Estimat Glomerular Filtration Rate > 60, Glucose Level 304H, Calcium Level 9.3 Height (Feet): 5 Height (Inches): 4.00 Weight (Pounds): 223 General Appearance: no apparent distress, alert EENT: PERRL/EOMI, normal ENT inspection Neck: non-tender, normal alignment Cardiovascular: normal peripheral pulses, normal rate Respiratory/Chest: lungs clear, normal breath sounds Abdomen: non tender, soft Extremities: non-tender Edema: no edema noted Generalized Neurologic: alert, oriented x 3 Skin: normal pigmentation Steve Walker Dec 10, 2019 09:01
[2019-12-10] MEDS: Aspirin EC 81mg tab ORAL SCH (09:05)
[2019-12-10] MEDS: BuPROPion SR 150mg tab ORAL SCH (09:06)
[2019-12-10] MEDS: Furosemide 40mg tab ORAL SCH (09:07)
[2019-12-10] MEDS: Levemir Flexpen SUBQ SCH (09:38)
--- NOTE | 2019-12-10 11:45 | NUR ---
NURSE NOTES: Received report from Lázaro/RN, Observed sitting on bed, On room air, no acute distress/SOB noted. Breathing evenly and unlabored. Chika pain at this time. IV on left wrist 20G, patent, and asymptomatic, Saline locked. Bed in low position and locked, Bed alarm engaged. Call light within reach, Encouraged to use call light when needed. Will continue plan of care.
[2019-12-10 12:00] VITALS: BP 133/71
[2019-12-10] MEDS: Morphine IR 15mg tab ORAL PRN (13:42)
--- NOTE | 2019-12-10 13:58 | General Progress Note ---
Assessment/Plan Problem List: (1) Diabetes ICD Codes: E11.9 - Type 2 diabetes mellitus without complications SNOMED: 92228547 (2) HTN (hypertension) ICD Codes: I10 - Essential (primary) hypertension SNOMED: 76913803 (3) Malnutrition ICD Codes: E46 - Unspecified protein-calorie malnutrition SNOMED: 48178704 (4) Chest pain ICD Codes: R07.9 - Chest pain, unspecified SNOMED: 66039271 (5) Hyperglycemia ICD Codes: R73.9 - Hyperglycemia, unspecified SNOMED: 32467509 (6) Pain ICD Codes: R52 - Pain, unspecified SNOMED: 18815262 (7) Acute exacerbation of CHF (congestive heart failure) ICD Codes: I50.9 - Heart failure, unspecified SNOMED: 552373719, 68363284528776 (8) Hypothyroid ICD Codes: E03.9 - Hypothyroidism, unspecified SNOMED: 67267607 Status: unchanged Assessment/Plan: pt diet bp pain control cbc bmp am Subjective Constitutional: Reports: weakness Allergies: Coded Allergies: No Known Allergies (Unverified , 12/08/19) All Systems: reviewed and negative except above Subjective sl anxious in bed sl cp Objective Last 24 Hour Vital Signs Date Time Temp Pulse Resp B/P (MAP) Pulse Ox O2 Delivery O2 Flow Rate FiO2 12/10/19 09:06 83 124/73 12/10/19 08:48 Room Air 12/10/19 08:00 96.8 79 20 153/82 (105) 94 12/10/19 04:45 83 12/10/19 04:00 97.7 74 16 124/73 (90) 93 12/10/19 00:04 79 12/10/19 00:00 97.5 77 16 102/57 (72) 95 12/09/19 21:11 Room Air 12/09/19 21:00 79 98/55 12/09/19 20:00 97.9 79 18 98/55 (69) 94 12/09/19 20:00 87 12/09/19 18:15 78 116/69 (85) 12/09/19 16:00 96.8 80 19 128/64 (85) 100 12/09/19 15:29 75 Intake and Output 12/09/19 12/10/19 19:00 07:00 # Voids 1 4 Laboratory Tests 12/10/19 06:50: White Blood Count 7.9, Red Blood Count 3.96L, Hemoglobin 13.2L, Hematocrit 36.2L , Mean Corpuscular Volume 91, Mean Corpuscular Hemoglobin 33.3H, Mean Corpuscular Hemoglobin Concent 36.5H, Red Cell Distribution Width 12.4, Platelet Count 253, Mean Platelet Volume 5.9L, Neutrophils (%) (Auto) 62.5, Lymphocytes (%) (Auto) 24.1, Monocytes (%) (Auto) 9.0, Eosinophils (%) (Auto) 3.4H, Basophils (%) (Auto) 1.1, Sodium Level 145, Potassium Level 4.8, Chloride Level 108H, Carbon Dioxide Level 29, Anion Gap 8, Blood Urea Nitrogen 26H, Creatinine 1.2, Estimat Glomerular Filtration Rate > 60, Glucose Level 304H, Calcium Level 9.3 Height (Feet): 5 Height (Inches): 4.00 Weight (Pounds): 223 General Appearance: alert EENT: normal ENT inspection Neck: normal alignment Cardiovascular: normal peripheral pulses, normal rate, regular rhythm Respiratory/Chest: chest wall non-tender, lungs clear, normal breath sounds Abdomen: normal bowel sounds, non tender, soft Extremities: normal inspection Edema: no edema noted Arm (L), no edema noted Arm (R), no edema noted Leg (L), no edema noted Leg (R), no edema noted Pedal (L), no edema noted Pedal (R), no edema noted Generalized Neurologic: responsive, motor weakness Skin: normal pigmentation, warm/dry Fermín Griggs DO Dec 10, 2019 13:58
[2019-12-10 16:00] VITALS: BP 117/70
--- NOTE | 2019-12-10 17:49 | Cardiology Progress Note ---
Assessment/Plan Assessment/Plan [id number] Objective Last 24 Hour Vital Signs Date Time Temp Pulse Resp B/P (MAP) Pulse Ox O2 Delivery O2 Flow Rate FiO2 12/10/19 12:00 97.7 76 20 133/71 (91) 95 12/10/19 12:00 72 12/10/19 09:06 83 124/73 12/10/19 08:48 Room Air 12/10/19 08:00 96.8 79 20 153/82 (105) 94 12/10/19 04:45 83 12/10/19 04:00 97.7 74 16 124/73 (90) 93 12/10/19 00:04 79 12/10/19 00:00 97.5 77 16 102/57 (72) 95 12/09/19 21:11 Room Air 12/09/19 21:00 79 98/55 12/09/19 20:00 97.9 79 18 98/55 (69) 94 12/09/19 20:00 87 12/09/19 18:15 78 116/69 (85) Intake and Output 12/09/19 12/10/19 19:00 07:00 # Voids 1 4 Laboratory Tests Test 12/10/19 06:50 White Blood Count 7.9 K/UL (4.8-10.8) Red Blood Count 3.96 M/UL (4.70-6.10) L Hemoglobin 13.2 G/DL (14.2-18.0) L Hematocrit 36.2 % (42.0-52.0) L Mean Corpuscular Volume 91 FL (80-99) Mean Corpuscular Hemoglobin 33.3 PG (27.0-31.0) H Mean Corpuscular Hemoglobin Concent 36.5 G/DL (32.0-36.0) H Red Cell Distribution Width 12.4 % (11.6-14.8) Platelet Count 253 K/UL (150-450) Mean Platelet Volume 5.9 FL (6.5-10.1) L Neutrophils (%) (Auto) 62.5 % (45.0-75.0) Lymphocytes (%) (Auto) 24.1 % (20.0-45.0) Monocytes (%) (Auto) 9.0 % (1.0-10.0) Eosinophils (%) (Auto) 3.4 % (0.0-3.0) H Basophils (%) (Auto) 1.1 % (0.0-2.0) Sodium Level 145 MMOL/L (136-145) Potassium Level 4.8 MMOL/L (3.5-5.1) Chloride Level 108 MMOL/L (98-107) H Carbon Dioxide Level 29 MMOL/L (21-32) Anion Gap 8 mmol/L (5-15) Blood Urea Nitrogen 26 mg/dL (7-18) H Creatinine 1.2 MG/DL (0.55-1.30) Estimat Glomerular Filtration Rate > 60 mL/min (>60) Glucose Level 304 MG/DL (74-106) H Calcium Level 9.3 MG/DL (8.5-10.1) Microbiology Date/Time Source Procedure Growth Status 12/08/19 12:17 Nasal Nares MRSA Culture - Final NO METHICILLIN RESISTANT STAPH AUREUS... Complete 12/08/19 12:17 Rectum VRE Culture - Final NO VANCOMYCIN RESISTANT ENTEROCOCCUS ... Complete Sarkis Guthrie MD Dec 10, 2019 17:49
[2019-12-10] MEDS ORDERED: Nitroglycerin Subl 0.4mg tab SL PRN (18:00)
[2019-12-10] MEDS: Nitroglycerin 2% oint pkt TOPIC SCH (18:49)
--- NOTE | 2019-12-10 19:39 | NUR ---
HAND-OFF: Report given to Odalys/RN, Patient is in stable condition. Endorsed plan of care.
--- NOTE | 2019-12-10 19:40 | NUR ---
NURSE NOTES: Received report from Ani/RN, Observed pt sitting up in bed, On room air, no acute distress/SOB noted. Breathing evenly and unlabored. Denies pain at this time. IV on left wrist 20G, patent, and asymptomatic, Saline locked. Bed in low position and locked, Bed alarm on. Call light within reach, Encouraged to use call light when needed. Will continue plan of care.
[2019-12-10 20:00] VITALS: BP 133/64
--- NOTE | 2019-12-10 20:15 | Consultation ---
DATE OF CONSULTATION: 12/10/2019 CONSULTING PHYSICIAN: Kiko Botello M.D. HISTORY OF PRESENT ILLNESS: The patient is a 54-year-old male, who is well known to this physician from previous encounter. The patient has a history of chest pain, obesity, and lower extremity edema. The patient keeps going to different hospitals for the chest pain. The patient is still concerned about his heart issues, has medication seeking behaviors. PAST PSYCHIATRIC HISTORY: Anxiety and depression. PAST MEDICAL HISTORY: Significant for chest pain, shortness of breath, obesity, congestive heart failure, hypertension, and diabetes. ALLERGIES: No known drug allergies. SUBSTANCE ABUSE HISTORY: No known history of illicit drug use or alcohol. MENTAL STATUS EXAMINATION: The patient is alert and oriented times to self, place, situation, and date. Mood is anxious. Affect is constricted, congruent with mood. Thought process is linear and goal oriented. Thought content, no suicidal or homicidal ideation. Cognition is intact. Insight and judgment is fair. ASSESSMENT: AXIS I: Major depressive disorder. Rule out somatoform disorder. AXIS II: Deferred. AXIS III: As above. AXIS IV: Low. AXIS V: 25. PLAN: 1. The patient will be started on Wellbutrin 150 mg in the morning. DC the 150 mg at bedtime. 2. Remeron. 3. Provide the patient with reality orientation and supportive therapy. Kiko Botello M.D. DR: SONYA JOB#: [id number] CC:
[2019-12-10] MEDS: Atorvastatin 80mg tab ORAL SCH (21:57)
[2019-12-11] VITALS: BP 134/82
--- NOTE | 2019-12-11 02:15 | Consultation ---
DATE OF CONSULTATION: 12/10/2019 CARDIOLOGY CONSULTATION CONSULTING PHYSICIAN: Sarkis Guthrie M.D. REFERRING PHYSICIAN: Fermín Griggs D.O. REASON FOR REFERRAL: Chest pain. HISTORY OF PRESENT ILLNESS: This is a middle-aged gentleman, who has a history of coronary artery disease and bypass surgery and stents on several occasions. Apparently according to self, he has had episodes of chest pain that has been ongoing but used to be less frequent than it is now. Every 2 months or so, he would have some pain. Now, he is having it on a more frequent basis. The pain is there most of the time. He has had several hospitalizations and different cardiologists have told him that "it is all in his head." Last time, he had intervention was in July 2019 at [facility]. He said one stent was put in. He was told that there are other blood vessels that were narrowed too but apparently too small to do anything about it. He cannot really identify any relieving or exacerbating factors. The pain is intermittent and he cannot remember how long it lasted but may be long time and usually he comes to the hospital when he had these long episodes of chest pain and he was told that this is all in his head. He uses two pillows with head of bed elevation. He has shortness of breath on exertion. He has dizziness on standing. He has occasional palpitations. PAST MEDICAL HISTORY: Positive for coronary artery disease, hypertension, hyperlipidemia, history of coronary artery bypass grafting, diabetes mellitus. He has had history of heart attack when he had his bypass surgery. No cancer. No stroke. No hepatitis or tuberculosis. No asthma. No emphysema. No ulcers. He does have kidney stones. No liver problems, thyroid problems, anemia, arthritis, HIV or AIDS, or blood clots anywhere. ALLERGIES: He denies any allergies to medications. SOCIAL HISTORY: He quit smoking alcohol and drugs about 30 years ago. REVIEW OF SYSTEMS: GASTROINTESTINAL: He has had nausea and constipation. GENITOURINARY: He has kidney stones. PULMONARY: No coughing or wheezing. CONSTITUTIONAL: He has some sweats at times. NEUROLOGIC: Numbness and tingling sensation in his left arm. PHYSICAL EXAMINATION: GENERAL: Shows him to be overweight middle-aged gentleman, in no respiratory distress. HEENT: Unremarkable. NECK: Supple. No jugular venous distention. LUNGS: Appear to be clear to auscultation and percussion. CARDIAC: Regular rate and rhythm. No heaves or thrills noted. ABDOMEN: Soft and obese. Positive bowel sounds. Nontender. EXTREMITIES: There is 2+ edema in the lower extremities bilaterally. He was examined sitting in upright position. LABORATORY AND DIAGNOSTIC DATA: EKG showed normal sinus rhythm. No ST-T abnormalities on the EKG. Blood tests, his white count is 7.9, hemoglobin 13.2, and platelet count of 253. Cardiac enzymes on one occasion was negative on 12/08/2019 and has not been repeated. Sodium 145, potassium 4.8, chloride 108, bicarb 29, BUN of 26, creatinine of 1.2, and glucose of 304. His A1c of 10.2. Calcium is 9.2. His chest x-ray shows hyperinflated lungs, bibasilar lung atelectasis. ASSESSMENT AND PLAN: 1. Chest pain, chronic, recurrent. 2. Coronary artery disease, status post coronary artery bypass graft and multiple stents. 3. Diabetes, poor control. 4. Hypertension. 5. Hyperlipidemia. 6. Obesity. This patient was seen in cardiac consultation. The patient's electrocardiogram is unremarkable. The patient may require repeat cardiac enzymes and checking an EKG. Echocardiogram should be performed if not done previously and he may require further testing. The patient is very confrontation indicating that he has not gotten along with several other cardiologists and he continues to have pain and he has been told that this is all in his head. Nevertheless, [facility] data has been reviewed and his last echocardiogram at [facility] was last year of 45% ejection fraction with normal wall motion apparently at that time. His last myocardial perfusion imaging was in July 2019 and that showed 2% reversible and 6% fixed and his last cardiac catheterization back in July, left main has no disease, LAD tapers to 1.5 mm from 3.5 mm proximally and patent stents are diffuse but no significant stenosis, left circumflex artery in the circumflex, multiple significant obtuse marginals, patent stents and no significant stenosis and right coronary artery patent stent, no significant stenosis, PAUL to diagonal branch was patent, saphenous vein graft to obtuse marginal has 70% to 80% proximal disease and this was the vessel that was intervened. Proximal saphenous vein graft, distal saphenous vein graft, and ostial saphenous graft by Dr. Cabrera back in July 2019 at [facility]. What he can have is repeat cardiac enzymes. If cardiac enzymes are normal, then he may be better off having a myocardial perfusion imaging. He has a notation at [facility] by other cardiologists, who have seen him including Dr. Xiao, who know him well and indicates that he has usually not had any significant myocardial infarction. Nevertheless, because of his persistent symptoms, may be related to small vessel disease that he may be just treated with medications. Sarkis Guthrie M.D. DR: José Antonio JOB#: [id number] CC:
[2019-12-11 04:00] VITALS: BP 128/72
[2019-12-11] MEDS: Nitroglycerin 2% oint pkt TOPIC SCH ×3 (06:21→17:32)
[2019-12-11] MEDS: NovoLOG Insulin Flexpen SUBQ SCH ×7 (06:27→21:26)
[2019-12-11] MEDS: Morphine IR 15mg tab ORAL PRN ×2 (06:43→15:53)
[2019-12-11 08:00] VITALS: BP 130/70
--- NOTE | 2019-12-11 08:00 | NUR ---
NURSE NOTES: Received report from Odalys/ONEL, Observed patient sitting up on chair. On room air, no acute distress/SOB noted. IV on left hand 20G, patent, and asymptomatic, Saline locked. Bed in low position and locked, Bed alarm engaged, side-rails up x2. Call light within reach, Encouraged to use call light when needed. Will continue plan of care.
--- NOTE | 2019-12-11 08:04 | NUR ---
HAND-OFF: Report given to ONEL Law.
[2019-12-11 08:19] LABS: BASOPHILS % (AUTO) 0.9 % (0.0-2.0); EOSINOPHILS % (AUTO) 2.6 % (0.0-3.0); HEMATOCRIT 40.3 % (42.0-52.0); HEMOGLOBIN 14.5 G/DL (14.2-18.0); LYMPHOCYTES % (AUTO) 18.3 % (20.0-45.0); MEAN CORPUSCULAR VOLUME 91 FL (80-99); MONOCYTES % (AUTO) 8.1 % (1.0-10.0); NEUTROPHILS % (AUTO) 70.1 % (45.0-75.0); PLATELET COUNT 294 K/UL (150-450); RED BLOOD COUNT 4.42 M/UL (4.70-6.10); RED CELL DISTRIBUTION WIDTH 12.3 % (11.6-14.8); WHITE BLOOD COUNT 9.9 K/UL (4.8-10.8)
--- NOTE | 2019-12-11 09:00 | NUR ---
DISCHARGE PLANNING FAXED CLINICALS TO [facility] AWAIT CARDIAC CLEARANCE AND DISCHARGE ORDER
[2019-12-11 09:28] LABS: ANION GAP 11 mmol/L (5-15); BLOOD UREA NITROGEN 26 mg/dL (7-18); CALCIUM 9.5 MG/DL (8.5-10.1); CARBON DIOXIDE 28 MMOL/L (21-32); CHLORIDE 100 MMOL/L (98-107); CHOLESTEROL 193 MG/DL (< 200); CREATININE 1.3 MG/DL (0.55-1.30); HDL CHOLESTEROL 51 MG/DL (40-60); POTASSIUM 4.4 MMOL/L (3.5-5.1); SODIUM 139 MMOL/L (136-145); TRIGLYCERIDES 290 MG/DL (30-150)
[2019-12-11] MEDS: Aspirin EC 81mg tab ORAL SCH (09:44)
[2019-12-11] MEDS: BuPROPion SR 150mg tab ORAL SCH (09:44)
--- NOTE | 2019-12-11 09:44 | General Progress Note ---
Assessment/Plan Assessment/Plan: 1) Lumbar degenerative disk disease 2) Lumbar radiculopathy 3) Lumbar spondylosis 4) H/o polysubstance abuse Patient will be continued on Morphine as needed. D/w Dr. Bull and he concurred. Subjective Date patient seen: Dec 11, 2019 Time patient seen: 08:30 - am Constitutional: Reports: no symptoms HEENT: Reports: no symptoms Cardiovascular: Reports: no symptoms Respiratory: Reports: no symptoms Gastrointestinal/Abdominal: Reports: no symptoms Genitourinary: Reports: no symptoms Neurologic/Psychiatric: Reports: no symptoms Endocrine: Reports: no symptoms Hematologic/Lymphatic: Reports: no symptoms Allergies: Coded Allergies: No Known Allergies (Unverified , 12/08/19) Subjective Standing and walking. No signs of pain or distress. Pain has been tolerated on the Morphine with no new complaints at this time. Objective Last 24 Hour Vital Signs Date Time Temp Pulse Resp B/P (MAP) Pulse Ox O2 Delivery O2 Flow Rate FiO2 12/11/19 08:00 97.5 95 18 130/70 (90) 96 12/11/19 07:13 97.4 12/11/19 06:21 128/72 12/11/19 04:00 97.4 89 19 128/72 (90) 94 12/11/19 04:00 88 12/11/19 00:00 83 12/11/19 00:00 97.7 83 21 134/82 (99) 95 12/10/19 21:57 79 153/82 12/10/19 21:00 Room Air 12/10/19 20:00 79 12/10/19 20:00 98.1 79 21 133/64 (87) 94 12/10/19 18:49 117/70 12/10/19 16:00 72 12/10/19 16:00 98.6 77 20 117/70 (86) 96 12/10/19 12:00 97.7 76 20 133/71 (91) 95 12/10/19 12:00 72 Intake and Output 12/10/19 12/11/19 19:00 07:00 Intake Total 1840 ml Balance 1840 ml Intake Oral 1840 ml # Voids 4 2 Laboratory Tests 12/10/19 18:50: Troponin I 0.000 12/11/19 07:35: Troponin I 0.000, White Blood Count 9.9, Red Blood Count 4.42L, Hemoglobin 14.5 , Hematocrit 40.3L, Mean Corpuscular Volume 91, Mean Corpuscular Hemoglobin 32.8H, Mean Corpuscular Hemoglobin Concent 36.0, Red Cell Distribution Width 12.3, Platelet Count 294, Mean Platelet Volume 6.0L, Neutrophils (%) (Auto) 70.1 , Lymphocytes (%) (Auto) 18.3L, Monocytes (%) (Auto) 8.1, Eosinophils (%) (Auto ) 2.6, Basophils (%) (Auto) 0.9, Sodium Level 139, Potassium Level 4.4, Chloride Level 100, Carbon Dioxide Level 28, Anion Gap 11, Blood Urea Nitrogen 26H, Creatinine 1.3, Estimat Glomerular Filtration Rate 57.3, Glucose Level 253H , Calcium Level 9.5, Pro-B-Type Natriuretic Peptide [Pending], Triglycerides Level 290H, Cholesterol Level 193, LDL Cholesterol 112H, HDL Cholesterol 51, Cholesterol/HDL Ratio 3.8 Height (Feet): 5 Height (Inches): 4.00 Weight (Pounds): 225 General Appearance: no apparent distress, alert EENT: PERRL/EOMI, normal ENT inspection Neck: non-tender, normal alignment Cardiovascular: normal rate, regular rhythm Respiratory/Chest: lungs clear, normal breath sounds Abdomen: non tender, soft Extremities: non-tender Edema: no edema noted Generalized Neurologic: alert, oriented x 3 Skin: warm/dry Steve Walker Dec 11, 2019 09:44
[2019-12-11] MEDS: Levemir Flexpen SUBQ SCH (09:46)
[2019-12-11 12:00] VITALS: BP 131/84
--- NOTE | 2019-12-11 12:14 | NUR ---
NURSE NOTES: Paged Dr. Guthrie for clearance, awaiting a call back.
--- NOTE | 2019-12-11 14:25 | General Progress Note ---
Assessment/Plan Problem List: (1) Diabetes ICD Codes: E11.9 - Type 2 diabetes mellitus without complications SNOMED: 38006858 (2) HTN (hypertension) ICD Codes: I10 - Essential (primary) hypertension SNOMED: 95452696 (3) Malnutrition ICD Codes: E46 - Unspecified protein-calorie malnutrition SNOMED: 85766306 (4) Chest pain ICD Codes: R07.9 - Chest pain, unspecified SNOMED: 70901302 (5) Hyperglycemia ICD Codes: R73.9 - Hyperglycemia, unspecified SNOMED: 22782310 (6) Pain ICD Codes: R52 - Pain, unspecified SNOMED: 54338835 (7) Acute exacerbation of CHF (congestive heart failure) ICD Codes: I50.9 - Heart failure, unspecified SNOMED: 516722621, 63376535723219 (8) Hypothyroid ICD Codes: E03.9 - Hypothyroidism, unspecified SNOMED: 41546157 Status: stable, progressing Assessment/Plan: pt diet bp pain control dc if clear by cardio and neuro Subjective Constitutional: Reports: weakness Allergies: Coded Allergies: No Known Allergies (Unverified , 12/08/19) All Systems: reviewed and negative except above Subjective sl anxious in bed sl cp Objective Last 24 Hour Vital Signs Date Time Temp Pulse Resp B/P (MAP) Pulse Ox O2 Delivery O2 Flow Rate FiO2 12/11/19 12:18 131/84 12/11/19 12:00 98.1 87 20 131/84 (100) 93 12/11/19 12:00 88 12/11/19 09:44 95 130/70 12/11/19 09:00 Room Air 12/11/19 08:00 94 12/11/19 08:00 97.5 95 18 130/70 (90) 96 12/11/19 07:13 97.4 12/11/19 06:21 128/72 12/11/19 04:00 97.4 89 19 128/72 (90) 94 12/11/19 04:00 88 12/11/19 00:00 83 12/11/19 00:00 97.7 83 21 134/82 (99) 95 12/10/19 21:57 79 153/82 12/10/19 21:00 Room Air 12/10/19 20:00 79 12/10/19 20:00 98.1 79 21 133/64 (87) 94 12/10/19 18:49 117/70 12/10/19 16:00 72 12/10/19 16:00 98.6 77 20 117/70 (86) 96 Intake and Output 12/10/19 12/11/19 19:00 07:00 Intake Total 1840 ml Balance 1840 ml Intake Oral 1840 ml # Voids 4 2 Laboratory Tests 12/10/19 18:50: Troponin I 0.000 12/11/19 07:35: Troponin I 0.000, White Blood Count 9.9, Red Blood Count 4.42L, Hemoglobin 14.5 , Hematocrit 40.3L, Mean Corpuscular Volume 91, Mean Corpuscular Hemoglobin 32.8H, Mean Corpuscular Hemoglobin Concent 36.0, Red Cell Distribution Width 12.3, Platelet Count 294, Mean Platelet Volume 6.0L, Neutrophils (%) (Auto) 70.1 , Lymphocytes (%) (Auto) 18.3L, Monocytes (%) (Auto) 8.1, Eosinophils (%) (Auto ) 2.6, Basophils (%) (Auto) 0.9, Sodium Level 139, Potassium Level 4.4, Chloride Level 100, Carbon Dioxide Level 28, Anion Gap 11, Blood Urea Nitrogen 26H, Creatinine 1.3, Estimat Glomerular Filtration Rate 57.3, Glucose Level 253H , Calcium Level 9.5, Pro-B-Type Natriuretic Peptide 47, Triglycerides Level 290H , Cholesterol Level 193, LDL Cholesterol 112H, HDL Cholesterol 51, Cholesterol/ HDL Ratio 3.8 Height (Feet): 5 Height (Inches): 4.00 Weight (Pounds): 225 General Appearance: alert EENT: normal ENT inspection Neck: normal alignment Cardiovascular: normal peripheral pulses, normal rate, regular rhythm Respiratory/Chest: chest wall non-tender, lungs clear, normal breath sounds Abdomen: normal bowel sounds, non tender, soft Extremities: normal inspection Edema: no edema noted Arm (L), no edema noted Arm (R), no edema noted Leg (L), no edema noted Leg (R), no edema noted Pedal (L), no edema noted Pedal (R), no edema noted Generalized Neurologic: responsive, motor weakness Skin: normal pigmentation, warm/dry Fermín Griggs DO Dec 11, 2019 14:25
--- NOTE | 2019-12-11 14:36 | NUR ---
DISCHARGE PLANNING DISCHARGE ORDER NOTED WAITING FOR CLEARANCE FROM HOME HEALTH SPEECH THERAPIST PATIENT HAS BEEN ACCEPTED BACK TO [facility] ROOM [address] SKILLED T: [phone] FOR NURSE TO NURSE REPORT [facility] HAS BEEN PLACED ON WILL CALL
[2019-12-11] MEDS ORDERED: NEURONTIN100 MG ORAL (15:29)
[2019-12-11] MEDS ORDERED: NOVOLOG100 UNITS1 (15:33)
[2019-12-11 16:00] VITALS: BP 121/76
--- NOTE | 2019-12-11 18:54 | General Progress Note ---
Assessment/Plan Problem List: (1) Hypothyroid ICD Codes: E03.9 - Hypothyroidism, unspecified SNOMED: 60054802 (2) Acute exacerbation of CHF (congestive heart failure) ICD Codes: I50.9 - Heart failure, unspecified SNOMED: 896849938, [id number] (3) Hyperglycemia ICD Codes: R73.9 - Hyperglycemia, unspecified SNOMED: 00821823 (4) Chest pain ICD Codes: R07.9 - Chest pain, unspecified SNOMED: 63600963 Status: stable, progressing Assessment/Plan: increase Levemir to 44 units qam increase Novolog to 14 units ac tid + sliding scale ac / hs continue Starlix 120 mg ac tid continue Januvia 100 mg daily continue Levothyroxine 50 mcg daily Subjective Allergies: Coded Allergies: No Known Allergies (Unverified , 12/08/19) All Systems: reviewed and negative except above Subjective events noted glucose values are elevated Item Value Date Time Bedside Blood Glucose 397 mg/dl H 12/11/19 1734 Bedside Blood Glucose 264 mg/dl H 12/11/19 1218 Bedside Blood Glucose 200 mg/dl H 12/11/19 0946 Bedside Blood Glucose 240 mg/dl H 12/11/19 0630 Bedside Blood Glucose 438 mg/dl H 12/10/19 2201 Bedside Blood Glucose 301 mg/dl H 12/10/19 1756 Objective Last 24 Hour Vital Signs Date Time Temp Pulse Resp B/P (MAP) Pulse Ox O2 Delivery O2 Flow Rate FiO2 12/11/19 17:32 121/76 12/11/19 16:00 97.8 77 20 121/76 (91) 95 12/11/19 16:00 77 12/11/19 12:18 131/84 12/11/19 12:00 98.1 87 20 131/84 (100) 93 12/11/19 12:00 88 12/11/19 09:44 95 130/70 12/11/19 09:00 Room Air 12/11/19 08:00 94 12/11/19 08:00 97.5 95 18 130/70 (90) 96 12/11/19 07:13 97.4 12/11/19 06:21 128/72 12/11/19 04:00 97.4 89 19 128/72 (90) 94 12/11/19 04:00 88 12/11/19 00:00 83 12/11/19 00:00 97.7 83 21 134/82 (99) 95 12/10/19 21:57 79 153/82 12/10/19 21:00 Room Air 12/10/19 20:00 79 12/10/19 20:00 98.1 79 21 133/64 (87) 94 Intake and Output 12/10/19 12/11/19 19:00 07:00 Intake Total 1840 ml Balance 1840 ml Intake Oral 1840 ml # Voids 4 2 Laboratory Tests 12/11/19 07:35: White Blood Count 9.9, Red Blood Count 4.42L, Hemoglobin 14.5, Hematocrit 40.3L , Mean Corpuscular Volume 91, Mean Corpuscular Hemoglobin 32.8H, Mean Corpuscular Hemoglobin Concent 36.0, Red Cell Distribution Width 12.3, Platelet Count 294, Mean Platelet Volume 6.0L, Neutrophils (%) (Auto) 70.1, Lymphocytes ( %) (Auto) 18.3L, Monocytes (%) (Auto) 8.1, Eosinophils (%) (Auto) 2.6, Basophils (%) (Auto) 0.9, Sodium Level 139, Potassium Level 4.4, Chloride Level 100, Carbon Dioxide Level 28, Anion Gap 11, Blood Urea Nitrogen 26H, Creatinine 1.3, Estimat Glomerular Filtration Rate 57.3, Glucose Level 253H, Calcium Level 9.5, Troponin I 0.000, Pro-B-Type Natriuretic Peptide 47, Triglycerides Level 290H, Cholesterol Level 193, LDL Cholesterol 112H, HDL Cholesterol 51, Cholesterol/HDL Ratio 3.8 Height (Feet): 5 Height (Inches): 4.00 Weight (Pounds): 225 General Appearance: no apparent distress Neck: normal alignment Cardiovascular: normal rate Respiratory/Chest: lungs clear Abdomen: normal bowel sounds Edema: 2+ Arm (L), 2+ Arm (R), 2+ Leg (L), 2+ Leg (R), 2+ Pedal (L), 2+ Pedal ( R), 2+ Generalized Objective Current Medications Medications (Trade) Dose Ordered Sig/Rodney Route PRN Reason Start Time Stop Time Status Last Admin Dose Admin Acetaminophen (Tylenol) 650 mg Q4H PRN ORAL Pain Scale (3-5) 12/08/19 15:45 01/07/20 15:44 Aspirin (Ecotrin) 81 mg DAILY ORAL 12/09/19 09:00 01/08/20 08:59 12/11/19 09:44 Atorvastatin Calcium (Lipitor) 80 mg BEDTIME ORAL 12/08/19 21:00 01/07/20 20:59 12/10/19 21:57 Bupropion HCl (Wellbutrin SR) 150 mg DAILY ORAL 12/11/19 09:00 01/10/20 08:59 12/11/19 09:44 Clopidogrel Bisulfate (Plavix) 75 mg DAILY ORAL 12/09/19 09:00 01/08/20 08:59 12/11/19 09:44 Dextrose (Dextrose 50%) 25 ml Q30M PRN IV Hypoglycemia 12/09/19 06:15 01/08/20 06:14 Dextrose (Dextrose 50%) 50 ml Q30M PRN IV Hypoglycemia 12/09/19 06:15 01/08/20 06:14 Furosemide (Lasix) 20 mg BID IV 12/10/19 18:00 01/09/20 17:59 12/11/19 17:33 Gabapentin (Neurontin) 300 mg BEDTIME ORAL 12/08/19 21:00 01/07/20 20:59 12/10/19 21:56 Gabapentin (Neurontin) 300 mg THREE TIMES A DAY ORAL 12/09/19 10:00 01/08/20 09:59 12/11/19 17:32 Insulin Aspart (NovoLOG) BEFORE MEALS AND HS SUBQ 12/08/19 16:30 01/07/20 16:29 12/11/19 17:34 Insulin Aspart (NovoLOG) 10 units NOVOTIAC SUBQ 12/09/19 06:30 01/08/20 06:29 12/11/19 17:33 Insulin Detemir (Levemir) 36 units DAILY SUBQ 12/09/19 09:00 01/08/20 08:59 12/11/19 09:46 Levothyroxine Sodium (Synthroid) 50 mcg DAILY@0630 ORAL 12/09/19 06:30 01/08/20 06:29 12/11/19 06:21 Lidocaine (Lidoderm 5% PATCH) 1 patch DAILY TDERMAL 12/09/19 10:00 01/08/20 09:59 12/11/19 09:45 Methocarbamol (Robaxin) 500 mg Q8H PRN ORAL muscle spasm 12/09/19 09:15 01/08/20 09:14 Metoprolol Tartrate (Lopressor) 25 mg EVERY 12 HOURS ORAL 12/08/19 21:00 01/07/20 20:59 12/11/19 09:44 Mirtazapine (Remeron) 7.5 mg BEDTIME ORAL 12/08/19 21:00 01/07/20 20:59 12/09/19 21:26 Morphine HCl (Morphine IR) 7.5 mg Q4H PRN ORAL For Pain 12/08/19 15:45 12/15/19 15:44 12/11/19 15:53 Nateglinide (Starlix) 120 mg THREE TIMES A DAY ORAL 12/09/19 13:00 01/05/20 12:59 12/11/19 17:32 Nitroglycerin (Nitro-Bid) 1 inch TID@0600,1200,1800 TOPIC 12/10/19 18:00 01/09/20 17:59 12/11/19 17:32 Nitroglycerin (Ntg) 0.4 mg Q5M PRN SL Prn Chest Pain 12/10/19 18:00 01/09/20 17:59 Pantoprazole (Protonix) 40 mg DAILY ORAL 12/09/19 09:00 01/08/20 08:59 12/11/19 09:44 Sitagliptin Phosphate (Januvia) 100 mg ACBREAKFAST ORAL 12/09/19 06:30 01/08/20 06:29 12/11/19 06:21 Zolpidem Tartrate (Ambien) 5 mg HSPRN PRN ORAL Insomnia 12/08/19 15:45 12/15/19 15:44 Shon Maldonado MD Dec 11, 2019 18:54
--- NOTE | 2019-12-11 19:35 | NUR ---
HAND-OFF: Report given to Bere/RN, Patient is in stable condition, Endorsed plan of care.
--- NOTE | 2019-12-11 19:48 | NUR ---
NURSE NOTES: Received patient from ONEL Law, patient in stable condition, AOx4, lying in bed, watching tv, IV site on left wrist asymptomatic, patent, bed low&locked, side rails upx2, call light within reach, will continue to monitor and reassess
[2019-12-11 20:00] VITALS: BP 93/47
--- NOTE | 2019-12-11 20:07 | Cardiology Progress Note ---
Assessment/Plan Assessment/Plan 1. Chest pain, chronic, recurrent. 2. Coronary artery disease, status post coronary artery bypass graft and multiple stents. 3. Diabetes, poor control. 4. Hypertension. 5. Hyperlipidemia. 6. Obesity cath at [facility] 07/2019 showed svg disease that had pci however showed the vessels taper to small vessel indicating probably diffuse disease small vessel will not be amenable to pci or bypass i have stat ntp will transition to imdur in am i have explained all abve to pt imporatance of diabetes control and compaliance d/w pt to prevent distal vessel becmongin more diffused diseased all trop and ekg were normal despite multipl hour of the pain so either tiffany aerr not ischemic related or at lupis small diffuse disased vessel ambualte bnp normal cr up will not be able to diurese sig dc planning 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 to fu with 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 manager rehab as out Subjective Cardiovascular: Reports: chest pain; Denies: lightheadedness, palpitations Respiratory: Reports: shortness of breath Gastrointestinal/Abdominal: Denies: abdominal pain Genitourinary: Denies: burning Objective Last 24 Hour Vital Signs Date Time Temp Pulse Resp B/P (MAP) Pulse Ox O2 Delivery O2 Flow Rate FiO2 12/11/19 17:32 121/76 12/11/19 16:00 97.8 77 20 121/76 (91) 95 12/11/19 16:00 77 12/11/19 12:18 131/84 12/11/19 12:00 98.1 87 20 131/84 (100) 93 12/11/19 12:00 88 12/11/19 09:44 95 130/70 12/11/19 09:00 Room Air 12/11/19 08:00 94 12/11/19 08:00 97.5 95 18 130/70 (90) 96 12/11/19 07:13 97.4 12/11/19 06:21 128/72 12/11/19 04:00 97.4 89 19 128/72 (90) 94 12/11/19 04:00 88 12/11/19 00:00 83 12/11/19 00:00 97.7 83 21 134/82 (99) 95 12/10/19 21:57 79 153/82 12/10/19 21:00 Room Air General Appearance: alert Neck: supple Cardiovascular: normal rate Respiratory/Chest: lungs clear Abdomen: normal bowel sounds, non tender, soft Extremities: other - mild wedema Intake and Output 12/10/19 12/11/19 19:00 07:00 Intake Total 1840 ml Balance 1840 ml Intake Oral 1840 ml # Voids 4 2 Laboratory Tests Test 12/11/19 07:35 White Blood Count 9.9 K/UL (4.8-10.8) Red Blood Count 4.42 M/UL (4.70-6.10) L Hemoglobin 14.5 G/DL (14.2-18.0) Hematocrit 40.3 % (42.0-52.0) L Mean Corpuscular Volume 91 FL (80-99) Mean Corpuscular Hemoglobin 32.8 PG (27.0-31.0) H Mean Corpuscular Hemoglobin Concent 36.0 G/DL (32.0-36.0) Red Cell Distribution Width 12.3 % (11.6-14.8) Platelet Count 294 K/UL (150-450) Mean Platelet Volume 6.0 FL (6.5-10.1) L Neutrophils (%) (Auto) 70.1 % (45.0-75.0) Lymphocytes (%) (Auto) 18.3 % (20.0-45.0) L Monocytes (%) (Auto) 8.1 % (1.0-10.0) Eosinophils (%) (Auto) 2.6 % (0.0-3.0) Basophils (%) (Auto) 0.9 % (0.0-2.0) Sodium Level 139 MMOL/L (136-145) Potassium Level 4.4 MMOL/L (3.5-5.1) Chloride Level 100 MMOL/L (98-107) Carbon Dioxide Level 28 MMOL/L (21-32) Anion Gap 11 mmol/L (5-15) Blood Urea Nitrogen 26 mg/dL (7-18) H Creatinine 1.3 MG/DL (0.55-1.30) Estimat Glomerular Filtration Rate 57.3 mL/min (>60) Glucose Level 253 MG/DL (74-106) H Calcium Level 9.5 MG/DL (8.5-10.1) Troponin I 0.000 ng/mL (0.000-0.056) Pro-B-Type Natriuretic Peptide 47 pg/mL (0-125) Triglycerides Level 290 MG/DL (30-150) H Cholesterol Level 193 MG/DL (< 200) LDL Cholesterol 112 mg/dL (<100) H HDL Cholesterol 51 MG/DL (40-60) Cholesterol/HDL Ratio 3.8 (3.3-4.4) Sarkis Guthrie MD Dec 11, 2019 20:07
[2019-12-11] MEDS: Atorvastatin 80mg tab ORAL SCH (21:25)
--- NOTE | 2019-12-11 22:47 | Psych Consult Progress Note ---
Psychiatry Progress Note Psychiatry Progress Note Medications Current Medications Medications (Trade) Dose Ordered Sig/Rodney Route PRN Reason Start Time Stop Time Status Last Admin Dose Admin Acetaminophen (Tylenol) 650 mg Q4H PRN ORAL Pain Scale (3-5) 12/08/19 15:45 01/07/20 15:44 Aspirin (Ecotrin) 81 mg DAILY ORAL 12/09/19 09:00 01/08/20 08:59 12/11/19 09:44 Atorvastatin Calcium (Lipitor) 80 mg BEDTIME ORAL 12/08/19 21:00 01/07/20 20:59 12/11/19 21:25 Bupropion HCl (Wellbutrin SR) 150 mg DAILY ORAL 12/11/19 09:00 01/10/20 08:59 12/11/19 09:44 Clopidogrel Bisulfate (Plavix) 75 mg DAILY ORAL 12/09/19 09:00 01/08/20 08:59 12/11/19 09:44 Dextrose (Dextrose 50%) 25 ml Q30M PRN IV Hypoglycemia 12/09/19 06:15 01/08/20 06:14 Dextrose (Dextrose 50%) 50 ml Q30M PRN IV Hypoglycemia 12/09/19 06:15 01/08/20 06:14 Furosemide (Lasix) 20 mg BID IV 12/10/19 18:00 01/09/20 17:59 12/11/19 17:33 Gabapentin (Neurontin) 300 mg BEDTIME ORAL 12/08/19 21:00 01/07/20 20:59 12/11/19 21:24 Gabapentin (Neurontin) 300 mg THREE TIMES A DAY ORAL 12/09/19 10:00 01/08/20 09:59 12/11/19 17:32 Insulin Aspart (NovoLOG) BEFORE MEALS AND HS SUBQ 12/08/19 16:30 01/07/20 16:29 12/11/19 21:26 Insulin Aspart (NovoLOG) 14 units NOVOTIAC SUBQ 12/12/19 06:30 01/08/20 06:29 Insulin Detemir (Levemir) 44 units DAILY SUBQ 12/12/19 09:00 01/08/20 08:59 Isosorbide Mononitrate (Imdur) 60 mg DAILY ORAL 12/12/19 09:00 01/11/20 08:59 Levothyroxine Sodium (Synthroid) 50 mcg DAILY@0630 ORAL 12/09/19 06:30 01/08/20 06:29 12/11/19 06:21 Lidocaine (Lidoderm 5% PATCH) 1 patch DAILY TDERMAL 12/09/19 10:00 01/08/20 09:59 12/11/19 09:45 Methocarbamol (Robaxin) 500 mg Q8H PRN ORAL muscle spasm 12/09/19 09:15 01/08/20 09:14 Metoprolol Tartrate (Lopressor) 25 mg EVERY 12 HOURS ORAL 12/08/19 21:00 01/07/20 20:59 12/11/19 09:44 Mirtazapine (Remeron) 7.5 mg BEDTIME ORAL 12/08/19 21:00 01/07/20 20:59 12/11/19 21:24 Morphine HCl (Morphine IR) 7.5 mg Q4H PRN ORAL For Pain 12/08/19 15:45 12/15/19 15:44 12/11/19 15:53 Nateglinide (Starlix) 120 mg THREE TIMES A DAY ORAL 12/09/19 13:00 01/05/20 12:59 12/11/19 17:32 Nitroglycerin (Ntg) 0.4 mg Q5M PRN SL Prn Chest Pain 12/10/19 18:00 01/09/20 17:59 Pantoprazole (Protonix) 40 mg DAILY ORAL 12/09/19 09:00 01/08/20 08:59 12/11/19 09:44 Sitagliptin Phosphate (Januvia) 100 mg ACBREAKFAST ORAL 12/09/19 06:30 01/08/20 06:29 12/11/19 06:21 Zolpidem Tartrate (Ambien) 5 mg HSPRN PRN ORAL Insomnia 12/08/19 15:45 12/15/19 15:44 Allergies: Coded Allergies: No Known Allergies (Unverified , 12/08/19) Objective Data Height (Feet): 5 Height (Inches): 4.00 Weight (Pounds): 225 Assessment/Plan Status: stable, progressing Kiko Botello MD Dec 11, 2019 22:47
[2019-12-12] VITALS: BP 122/56
[2019-12-12] MEDS: Morphine IR 15mg tab ORAL PRN ×3 (00:28→23:59)
[2019-12-12 04:00] VITALS: BP 113/67
[2019-12-12] MEDS: NovoLOG Insulin Flexpen SUBQ SCH ×7 (05:49→21:03)
--- NOTE | 2019-12-12 06:42 | General Progress Note ---
Assessment/Plan Problem List: (1) Hypothyroid ICD Codes: E03.9 - Hypothyroidism, unspecified SNOMED: 16382967 (2) Acute exacerbation of CHF (congestive heart failure) ICD Codes: I50.9 - Heart failure, unspecified SNOMED: 588174073, [id number] (3) Hyperglycemia ICD Codes: R73.9 - Hyperglycemia, unspecified SNOMED: 51155384 (4) Chest pain ICD Codes: R07.9 - Chest pain, unspecified SNOMED: 95579638 Status: stable, progressing Assessment/Plan: increase Levemir to 44 units qam increase Novolog to 14 units ac tid + sliding scale ac / hs continue Starlix 120 mg ac tid continue Januvia 100 mg daily continue Levothyroxine 50 mcg daily Subjective Allergies: Coded Allergies: No Known Allergies (Unverified , 12/08/19) All Systems: reviewed and negative except above Subjective events noted in good spirit Item Value Date Time Bedside Blood Glucose 345 mg/dl H 12/12/19 0549 Bedside Blood Glucose 273 mg/dl H 12/11/19 2126 Bedside Blood Glucose 397 mg/dl H 12/11/19 1734 Bedside Blood Glucose 264 mg/dl H 12/11/19 1218 Bedside Blood Glucose 200 mg/dl H 12/11/19 0946 Bedside Blood Glucose 240 mg/dl H 12/11/19 0630 Objective Last 24 Hour Vital Signs Date Time Temp Pulse Resp B/P (MAP) Pulse Ox O2 Delivery O2 Flow Rate FiO2 12/12/19 04:00 97.3 73 18 113/67 (82) 95 12/12/19 04:00 72 12/12/19 00:00 78 12/12/19 00:00 98.1 80 18 122/56 (78) 95 12/11/19 21:00 77 93/47 12/11/19 21:00 Room Air 12/11/19 20:00 97.8 77 18 93/47 (62) 95 12/11/19 20:00 80 12/11/19 17:32 121/76 12/11/19 16:00 97.8 77 20 121/76 (91) 95 12/11/19 16:00 77 12/11/19 12:18 131/84 12/11/19 12:00 98.1 87 20 131/84 (100) 93 12/11/19 12:00 88 12/11/19 09:44 95 130/70 12/11/19 09:00 Room Air 12/11/19 08:00 94 12/11/19 08:00 97.5 95 18 130/70 (90) 96 12/11/19 07:13 97.4 Intake and Output 12/11/19 12/12/19 19:00 07:00 Intake Total 1280 ml Balance 1280 ml Intake Oral 1280 ml # Voids 6 Laboratory Tests 12/11/19 07:35: White Blood Count 9.9, Red Blood Count 4.42L, Hemoglobin 14.5, Hematocrit 40.3L , Mean Corpuscular Volume 91, Mean Corpuscular Hemoglobin 32.8H, Mean Corpuscular Hemoglobin Concent 36.0, Red Cell Distribution Width 12.3, Platelet Count 294, Mean Platelet Volume 6.0L, Neutrophils (%) (Auto) 70.1, Lymphocytes ( %) (Auto) 18.3L, Monocytes (%) (Auto) 8.1, Eosinophils (%) (Auto) 2.6, Basophils (%) (Auto) 0.9, Sodium Level 139, Potassium Level 4.4, Chloride Level 100, Carbon Dioxide Level 28, Anion Gap 11, Blood Urea Nitrogen 26H, Creatinine 1.3, Estimat Glomerular Filtration Rate 57.3, Glucose Level 253H, Calcium Level 9.5, Troponin I 0.000, Pro-B-Type Natriuretic Peptide 47, Triglycerides Level 290H, Cholesterol Level 193, LDL Cholesterol 112H, HDL Cholesterol 51, Cholesterol/HDL Ratio 3.8 Height (Feet): 5 Height (Inches): 4.00 Weight (Pounds): 225 General Appearance: no apparent distress Neck: normal alignment Cardiovascular: normal rate Respiratory/Chest: lungs clear Abdomen: normal bowel sounds Pelvis: normal external exam Edema: 1+ Arm (L), 1+ Arm (R), 1+ Leg (L), 1+ Leg (R), 1+ Pedal (L), 1+ Pedal ( R), 1+ Generalized Objective Current Medications Medications (Trade) Dose Ordered Sig/Rodney Route PRN Reason Start Time Stop Time Status Last Admin Dose Admin Acetaminophen (Tylenol) 650 mg Q4H PRN ORAL Pain Scale (3-5) 12/08/19 15:45 01/07/20 15:44 Aspirin (Ecotrin) 81 mg DAILY ORAL 12/09/19 09:00 01/08/20 08:59 12/11/19 09:44 Atorvastatin Calcium (Lipitor) 80 mg BEDTIME ORAL 12/08/19 21:00 01/07/20 20:59 12/11/19 21:25 Bupropion HCl (Wellbutrin SR) 150 mg DAILY ORAL 12/11/19 09:00 01/10/20 08:59 12/11/19 09:44 Clopidogrel Bisulfate (Plavix) 75 mg DAILY ORAL 12/09/19 09:00 01/08/20 08:59 12/11/19 09:44 Dextrose (Dextrose 50%) 25 ml Q30M PRN IV Hypoglycemia 12/09/19 06:15 01/08/20 06:14 Dextrose (Dextrose 50%) 50 ml Q30M PRN IV Hypoglycemia 12/09/19 06:15 01/08/20 06:14 Furosemide (Lasix) 20 mg BID IV 12/10/19 18:00 01/09/20 17:59 12/11/19 17:33 Gabapentin (Neurontin) 300 mg BEDTIME ORAL 12/08/19 21:00 01/07/20 20:59 12/11/19 21:24 Gabapentin (Neurontin) 300 mg THREE TIMES A DAY ORAL 12/09/19 10:00 01/08/20 09:59 12/11/19 17:32 Insulin Aspart (NovoLOG) BEFORE MEALS AND HS SUBQ 12/08/19 16:30 01/07/20 16:29 12/12/19 05:49 Insulin Aspart (NovoLOG) 14 units NOVOTIAC SUBQ 12/12/19 06:30 01/08/20 06:29 12/12/19 05:49 Insulin Detemir (Levemir) 44 units DAILY SUBQ 12/12/19 09:00 01/08/20 08:59 Isosorbide Mononitrate (Imdur) 60 mg DAILY ORAL 12/12/19 09:00 01/11/20 08:59 Levothyroxine Sodium (Synthroid) 50 mcg DAILY@0630 ORAL 12/09/19 06:30 01/08/20 06:29 12/12/19 05:46 Lidocaine (Lidoderm 5% PATCH) 1 patch DAILY TDERMAL 12/09/19 10:00 01/08/20 09:59 12/11/19 09:45 Methocarbamol (Robaxin) 500 mg Q8H PRN ORAL muscle spasm 12/09/19 09:15 01/08/20 09:14 Metoprolol Tartrate (Lopressor) 25 mg EVERY 12 HOURS ORAL 12/08/19 21:00 01/07/20 20:59 12/11/19 09:44 Mirtazapine (Remeron) 7.5 mg BEDTIME ORAL 12/08/19 21:00 01/07/20 20:59 12/11/19 21:24 Morphine HCl (Morphine IR) 7.5 mg Q4H PRN ORAL For Pain 12/08/19 15:45 12/15/19 15:44 12/12/19 00:28 Nateglinide (Starlix) 120 mg THREE TIMES A DAY ORAL 12/09/19 13:00 01/05/20 12:59 12/11/19 17:32 Nitroglycerin (Ntg) 0.4 mg Q5M PRN SL Prn Chest Pain 12/10/19 18:00 01/09/20 17:59 Pantoprazole (Protonix) 40 mg DAILY ORAL 12/09/19 09:00 01/08/20 08:59 12/11/19 09:44 Sitagliptin Phosphate (Januvia) 100 mg ACBREAKFAST ORAL 12/09/19 06:30 01/08/20 06:29 12/12/19 05:46 Zolpidem Tartrate (Ambien) 5 mg HSPRN PRN ORAL Insomnia 12/08/19 15:45 12/15/19 15:44 Shon Maldonado MD Dec 12, 2019 06:42
--- NOTE | 2019-12-12 07:18 | NUR ---
HAND-OFF: Report given to Efrain SYKES, patient in stable condition, plan of care endorsed.
[2019-12-12 08:00] VITALS: BP 156/82
[2019-12-12 08:37] LABS: BASOPHILS % (AUTO) 0.9 % (0.0-2.0); EOSINOPHILS % (AUTO) 3.2 % (0.0-3.0); HEMATOCRIT 36.2 % (42.0-52.0); HEMOGLOBIN 12.9 G/DL (14.2-18.0); LYMPHOCYTES % (AUTO) 18.7 % (20.0-45.0); MEAN CORPUSCULAR VOLUME 92 FL (80-99); MONOCYTES % (AUTO) 8.9 % (1.0-10.0); NEUTROPHILS % (AUTO) 68.3 % (45.0-75.0); PLATELET COUNT 241 K/UL (150-450); RED BLOOD COUNT 3.92 M/UL (4.70-6.10); RED CELL DISTRIBUTION WIDTH 12.6 % (11.6-14.8); WHITE BLOOD COUNT 8.8 K/UL (4.8-10.8)
[2019-12-12 08:52] LABS: ANION GAP 10 mmol/L (5-15); BLOOD UREA NITROGEN 34 mg/dL (7-18); CALCIUM 9.2 MG/DL (8.5-10.1); CARBON DIOXIDE 26 MMOL/L (21-32); CHLORIDE 98 MMOL/L (98-107); CREATININE 1.4 MG/DL (0.55-1.30); POTASSIUM 4.3 MMOL/L (3.5-5.1); SODIUM 134 MMOL/L (136-145)
[2019-12-12] MEDS ORDERED: Imdur 30mg tab ORAL SCH (09:00)
[2019-12-12] MEDS ORDERED: Levemir Flexpen SUBQ SCH (09:00)
--- NOTE | 2019-12-12 09:15 | General Progress Note ---
Assessment/Plan Assessment/Plan: (1) Lumbar degenerative disk disease (2) Lumbar radiculopathy (3) Lumbar spondylosis (4) H/o polysubstance abuse Patient will be continued on Morphine as needed. D/w Dr. Bull and he concurred. Subjective Date patient seen: Dec 12, 2019 Time patient seen: 09:00 - am Allergies: Coded Allergies: No Known Allergies (Unverified , 12/08/19) Subjective Constitutional: Reports: no symptoms HEENT: Reports: no symptoms Cardiovascular: Reports: no symptoms Respiratory: Reports: no symptoms Gastrointestinal/Abdominal: Reports: no symptoms Genitourinary: Reports: no symptoms Neurologic/Psychiatric: Reports: no symptoms Endocrine: Reports: no symptoms Hematologic/Lymphatic: Reports: no symptoms Subjective Patient is in bed and reports no pain at this time. Using the Morphine as needed. No new complaints. Objective Last 24 Hour Vital Signs Date Time Temp Pulse Resp B/P (MAP) Pulse Ox O2 Delivery O2 Flow Rate FiO2 12/12/19 08:00 96.7 82 20 156/82 (106) 95 12/12/19 04:00 97.3 73 18 113/67 (82) 95 12/12/19 04:00 72 12/12/19 00:00 78 12/12/19 00:00 98.1 80 18 122/56 (78) 95 12/11/19 21:00 77 93/47 12/11/19 21:00 Room Air 12/11/19 20:00 97.8 77 18 93/47 (62) 95 12/11/19 20:00 80 12/11/19 17:32 121/76 12/11/19 16:00 97.8 77 20 121/76 (91) 95 12/11/19 16:00 77 12/11/19 12:18 131/84 12/11/19 12:00 98.1 87 20 131/84 (100) 93 12/11/19 12:00 88 12/11/19 09:44 95 130/70 Intake and Output 12/11/19 12/12/19 19:00 07:00 Intake Total 1280 ml 380 ml Balance 1280 ml 380 ml Intake Oral 1280 ml 380 ml # Voids 6 3 Laboratory Tests 12/12/19 08:15: White Blood Count 8.8, Red Blood Count 3.92L, Hemoglobin 12.9L, Hematocrit 36.2L , Mean Corpuscular Volume 92, Mean Corpuscular Hemoglobin 32.9H, Mean Corpuscular Hemoglobin Concent 35.7, Red Cell Distribution Width 12.6, Platelet Count 241, Mean Platelet Volume 6.2L, Neutrophils (%) (Auto) 68.3, Lymphocytes ( %) (Auto) 18.7L, Monocytes (%) (Auto) 8.9, Eosinophils (%) (Auto) 3.2H, Basophils (%) (Auto) 0.9, Sodium Level [Pending], Potassium Level [Pending], Chloride Level [Pending], Carbon Dioxide Level [Pending], Blood Urea Nitrogen [ Pending], Creatinine [Pending], Estimat Glomerular Filtration Rate [Pending], Glucose Level [Pending], Calcium Level [Pending] Height (Feet): 5 Height (Inches): 4.00 Weight (Pounds): 225 Objective General Appearance: no apparent distress, alert EENT: PERRL/EOMI, normal ENT inspection Neck: non-tender, normal alignment Cardiovascular: normal rate, regular rhythm Respiratory/Chest: lungs clear, normal breath sounds Abdomen: non tender, soft Extremities: non-tender Edema: no edema noted Generalized Neurologic: alert, oriented x 3 Skin: warm/dry Steve Walker Dec 12, 2019 09:15
[2019-12-12] MEDS: BuPROPion SR 150mg tab ORAL SCH (10:18)
[2019-12-12] MEDS: Aspirin EC 81mg tab ORAL SCH (10:19)
[2019-12-12 12:00] VITALS: BP 130/75
--- NOTE | 2019-12-12 12:00 | CDS Physician Query ---
Clarification is required for compliance, coding accuracy, and to reflect severity of illness for this patient Dear Dr. Griggs Date: 12.12.19 CDS Name: Oswaldo Walsh "Heart Failure / CHF" documented in progress note as " Acute exacerbation of CHF. Pro BNP 106-12.08.19 Patient received IV Lasix 20 mg Please Clarify: Acuity [ ] Acute [ ] Chronic [ ] Acute on Chronic Type [ ] Systolic [ ] Diastolic [ ] Systolic & Diastolic (Combined) [ ] Other: Present on Admission: [ ] Yes [ ] No [ ] Clinically Undetermined Physician signature Date Please also document in your Progress Notes and/or Discharge Summary and indicate if the condition was present on admission. MTDD
--- NOTE | 2019-12-12 12:04 | CDS Physician Query ---
Clarification is required for compliance, coding accuracy, and to reflect severity of illness for this patient Dear Dr. Guthrie Date: CDS: Oswaldo Walsh "Heart Failure / CHF" documented in progress note as " acute exacerbation of CHF ". IV Lasix given Pro BNP 106 12.08.19 Echo-Left ventricular ejection fraction estimated to be 55-60%. Mitral diastolic velocities suggest reduced left ventricular relaxation c/w mild LV diastolic dysfunction Grade 1. Please Clarify: Type [ ] Systolic [ ] Diastolic [ ] Systolic & Diastolic (Combined) [ ] Other: Present on Admission: [ ] Yes [ ] No [ ] Clinically Undetermined Physician signature Date Please also document in your Progress Notes and/or Discharge Summary and indicate if the condition was present on admission. ISHAAND
--- NOTE | 2019-12-12 13:20 | NUR ---
*-* CASE MANAGEMENT NOTES *-* PATIENT HAS APPEALED HIS DISCHARGE WITH MEDICARE CASE # [id number]
[2019-12-12 16:00] VITALS: BP 117/73
--- NOTE | 2019-12-12 19:20 | NUR ---
NURSE NOTES: Received report from ONEL Zuniga. Patient is awake, sitting on a chair, resting comfortably. A/Ox4. Able to make needs known. Denies pain at this time. No signs of acute distress noted. Checked IV site and flushed. No erythema, bleeding or infiltration noted. Bed at lowest position, brakes on, siderailsx2. Call light within reach. Will continue to monitor.
[2019-12-12 20:00] VITALS: BP 134/77
--- NOTE | 2019-12-12 20:22 | Cardiology Progress Note ---
Assessment/Plan Assessment/Plan 1. Chest pain, chronic, recurrent. 2. Coronary artery disease, status post coronary artery bypass graft and multiple stents. 3. Diabetes, poor control. 4. Hypertension. 5. Hyperlipidemia. 6. 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 as out encouraged compalience with med Subjective Cardiovascular: Reports: chest pain - still constantly no change on imdur Respiratory: Denies: shortness of breath Gastrointestinal/Abdominal: Denies: abdominal pain Genitourinary: Denies: burning Objective Last 24 Hour Vital Signs Date Time Temp Pulse Resp B/P (MAP) Pulse Ox O2 Delivery O2 Flow Rate FiO2 12/12/19 16:00 97.1 78 20 117/73 (88) 97 12/12/19 16:00 77 12/12/19 13:22 97.7 12/12/19 12:00 98 12/12/19 12:00 97.7 81 20 130/75 (93) 95 12/12/19 10:20 82 156/82 12/12/19 10:19 156/82 12/12/19 09:00 81 12/12/19 09:00 Room Air 12/12/19 08:00 96.7 82 20 156/82 (106) 95 12/12/19 04:00 97.3 73 18 113/67 (82) 95 12/12/19 04:00 72 12/12/19 00:00 78 12/12/19 00:00 98.1 80 18 122/56 (78) 95 12/11/19 21:00 77 93/47 12/11/19 21:00 Room Air General Appearance: no apparent distress, alert, obese Cardiovascular: normal rate Respiratory/Chest: lungs clear Abdomen: normal bowel sounds, non tender, soft Extremities: trace edema Intake and Output 12/11/19 12/12/19 19:00 07:00 Intake Total 1280 ml 380 ml Balance 1280 ml 380 ml Intake Oral 1280 ml 380 ml # Voids 6 3 Laboratory Tests Test 12/12/19 08:15 White Blood Count 8.8 K/UL (4.8-10.8) Red Blood Count 3.92 M/UL (4.70-6.10) L Hemoglobin 12.9 G/DL (14.2-18.0) L Hematocrit 36.2 % (42.0-52.0) L Mean Corpuscular Volume 92 FL (80-99) Mean Corpuscular Hemoglobin 32.9 PG (27.0-31.0) H Mean Corpuscular Hemoglobin Concent 35.7 G/DL (32.0-36.0) Red Cell Distribution Width 12.6 % (11.6-14.8) Platelet Count 241 K/UL (150-450) Mean Platelet Volume 6.2 FL (6.5-10.1) L Neutrophils (%) (Auto) 68.3 % (45.0-75.0) Lymphocytes (%) (Auto) 18.7 % (20.0-45.0) L Monocytes (%) (Auto) 8.9 % (1.0-10.0) Eosinophils (%) (Auto) 3.2 % (0.0-3.0) H Basophils (%) (Auto) 0.9 % (0.0-2.0) Sodium Level 134 MMOL/L (136-145) L Potassium Level 4.3 MMOL/L (3.5-5.1) Chloride Level 98 MMOL/L (98-107) Carbon Dioxide Level 26 MMOL/L (21-32) Anion Gap 10 mmol/L (5-15) Blood Urea Nitrogen 34 mg/dL (7-18) H Creatinine 1.4 MG/DL (0.55-1.30) H Estimat Glomerular Filtration Rate 52.6 mL/min (>60) Glucose Level 421 MG/DL (74-106) #H Calcium Level 9.2 MG/DL (8.5-10.1) Sarkis Guthrie MD Dec 12, 2019 20:22
--- NOTE | 2019-12-12 20:52 | General Progress Note ---
Assessment/Plan Problem List: (1) Acute exacerbation of congestive heart failure ICD Codes: I50.9 - Heart failure, unspecified SNOMED: 047339913, 17099060890676 (2) Acute exacerbation of CHF (congestive heart failure) ICD Codes: I50.9 - Heart failure, unspecified SNOMED: 002017433, 45842323611228 (3) Pain ICD Codes: R52 - Pain, unspecified SNOMED: 05428461 (4) Hyperglycemia ICD Codes: R73.9 - Hyperglycemia, unspecified SNOMED: 40992747 (5) Chest pain ICD Codes: R07.9 - Chest pain, unspecified SNOMED: 60411464 (6) Hypothyroid ICD Codes: E03.9 - Hypothyroidism, unspecified SNOMED: 19028736 (7) HTN (hypertension) ICD Codes: I10 - Essential (primary) hypertension SNOMED: 74216193 (8) Diabetes ICD Codes: E11.9 - Type 2 diabetes mellitus without complications SNOMED: 68028239 Status: progressing Assessment/Plan: chest pain s/p stent niddm htn chf afebrile reviewed chart and labs Subjective ROS Limited/Unobtainable: Yes Allergies: Coded Allergies: No Known Allergies (Unverified , 12/08/19) Objective Last 24 Hour Vital Signs Date Time Temp Pulse Resp B/P (MAP) Pulse Ox O2 Delivery O2 Flow Rate FiO2 12/12/19 16:00 97.1 78 20 117/73 (88) 97 12/12/19 16:00 77 12/12/19 13:22 97.7 12/12/19 12:00 98 12/12/19 12:00 97.7 81 20 130/75 (93) 95 12/12/19 10:20 82 156/82 12/12/19 10:19 156/82 12/12/19 09:00 81 12/12/19 09:00 Room Air 12/12/19 08:00 96.7 82 20 156/82 (106) 95 12/12/19 04:00 97.3 73 18 113/67 (82) 95 12/12/19 04:00 72 12/12/19 00:00 78 12/12/19 00:00 98.1 80 18 122/56 (78) 95 12/11/19 21:00 77 93/47 12/11/19 21:00 Room Air Intake and Output 12/11/19 12/12/19 19:00 07:00 Intake Total 1280 ml 380 ml Balance 1280 ml 380 ml Intake Oral 1280 ml 380 ml # Voids 6 3 Laboratory Tests 12/12/19 08:15: White Blood Count 8.8, Red Blood Count 3.92L, Hemoglobin 12.9L, Hematocrit 36.2L , Mean Corpuscular Volume 92, Mean Corpuscular Hemoglobin 32.9H, Mean Corpuscular Hemoglobin Concent 35.7, Red Cell Distribution Width 12.6, Platelet Count 241, Mean Platelet Volume 6.2L, Neutrophils (%) (Auto) 68.3, Lymphocytes ( %) (Auto) 18.7L, Monocytes (%) (Auto) 8.9, Eosinophils (%) (Auto) 3.2H, Basophils (%) (Auto) 0.9, Sodium Level 134L, Potassium Level 4.3, Chloride Level 98, Carbon Dioxide Level 26, Anion Gap 10, Blood Urea Nitrogen 34H, Creatinine 1.4H, Estimat Glomerular Filtration Rate 52.6, Glucose Level 421#H, Calcium Level 9.2 Height (Feet): 5 Height (Inches): 4.00 Weight (Pounds): 225 Preston Portillo MD Dec 12, 2019 20:52
[2019-12-12] MEDS: Atorvastatin 80mg tab ORAL SCH (20:59)
--- NOTE | 2019-12-12 23:59 | NUR ---
NURSE NOTES: Wasted 7.5mg Morphine tab at med bin.
[2019-12-13] VITALS: BP 147/97
--- NOTE | 2019-12-13 01:32 | NUR ---
NURSE NOTES: Resting throughout the night. No significant change of condition noted. Will continue to monitor.
[2019-12-13 04:00] VITALS: BP 101/64
--- NOTE | 2019-12-13 04:45 | Progress Note ---
DATE: 12/12/2019 SUBJECTIVE: The patient is worried about the heart no new complaints. Sleep and appetite are adequate. The patient is compliant with treatments. MENTAL STATUS EXAMINATION: The patient is alert and oriented times self, place, situation, and date. Mood is neutral. Affect is constricted. Congruent with mood. Thought process is concrete. Thought content, no suicidal or homicidal ideation. Cognition is intact. Insight and judgment are fair. ASSESSMENT: Major depressive disorder. PLAN: 1. The patient will be continued on current medication. 2. Provide the patient with reality orientation and supportive therapy. Kiko Botello M.D. DR: NIKITA JOB#: [id number] CC: KOLBY
[2019-12-13] MEDS: NovoLOG Insulin Flexpen SUBQ SCH ×9 (05:38→22:22)
--- NOTE | 2019-12-13 05:47 | NUR ---
TRANSFER TO FLOOR: Patient transferred to 3E via hospital bed accompanied by 2 staff member without any incident. Tele box off and tolerating well. Report given to ONEL Hendricks. Belongings and medications given to ONEL Cespedes. Family and or S/O informed of transfer.
--- NOTE | 2019-12-13 05:50 | NUR ---
NURSE NOTES: Received report from ONEL Ahuja. Pt arrived with his belongings via [place]. Pt is awake, lying semi-hardin's; comfortably resting. No signs of acute distress noted. Pt denies any pain at this time. AOx4; able to make needs known. Checked IV site; patent and flushed. No erythema, bleeding, or infiltration noted. Bed at lowest position. Brakes on. Siderails up x2. Call light within reach. Will continue to monitor.
[2019-12-13] MEDS ORDERED: Methocarbamol 500mg tab ORAL PRN (06:15)
--- NOTE | 2019-12-13 06:30 | NUR ---
NURSE NOTES: Pt's mom, Betsy Longoria, made aware of pt's transfer from 2E Telemetry to 3E Medical/Surgical unit. Pt's mom notified of new room number.
--- NOTE | 2019-12-13 07:30 | NUR ---
HAND-OFF: Report given to ONEL Duggan. Pt is awake and in stable condition. Plan of care endorsed.
[2019-12-13] MEDS ORDERED: Morphine IR 15mg tab ORAL PRN (07:45)
--- NOTE | 2019-12-13 07:45 | NUR ---
NURSE NOTES: Received report from Rubina SYKES. Patient is awake and oriented, no acute distress noted, reporting pain in lower back, will medicate per order. IV intact, locked, patient ambulatory with steady gait, non-slip socks on. Patient updated on plan of care, patient is aware of discharge order and refusing to be discharged at this time, patient stated he is refusing to be discharged because "my legs are still swollen and my back is still hurting", case management aware per notes. Patient updated on plan of care for the day. Side rails upx2, bed low and locked, call light within reach.
[2019-12-13 08:00] VITALS: BP 136/75
--- NOTE | 2019-12-13 09:15 | General Progress Note ---
Assessment/Plan Assessment/Plan: (1) Lumbar degenerative disk disease (2) Lumbar radiculopathy (3) Lumbar spondylosis (4) H/o polysubstance abuse Patient will be continued on Morphine as needed. D/w Dr. Bull and he concurred. Subjective Date patient seen: Dec 13, 2019 Time patient seen: 08:00 - am Allergies: Coded Allergies: No Known Allergies (Unverified , 12/08/19) Subjective Constitutional: Reports: no symptoms HEENT: Reports: no symptoms Cardiovascular: Reports: no symptoms Respiratory: Reports: no symptoms Gastrointestinal/Abdominal: Reports: no symptoms Genitourinary: Reports: no symptoms Neurologic/Psychiatric: Reports: no symptoms Endocrine: Reports: no symptoms Hematologic/Lymphatic: Reports: no symptoms Subjective Patient has been doing better and pain has been tolerated on the Morphine. Has no new complaints at this time. Objective Last 24 Hour Vital Signs Date Time Temp Pulse Resp B/P (MAP) Pulse Ox O2 Delivery O2 Flow Rate FiO2 12/13/19 04:00 98.1 83 16 101/64 (76) 95 12/13/19 04:00 81 12/13/19 00:29 97.6 12/13/19 00:00 97.6 76 18 147/97 (114) 95 12/13/19 00:00 75 12/12/19 21:00 Room Air 12/12/19 21:00 86 134/77 12/12/19 20:00 97.5 86 16 134/77 (96) 98 12/12/19 20:00 88 12/12/19 16:00 97.1 78 20 117/73 (88) 97 12/12/19 16:00 77 12/12/19 12:00 98 12/12/19 12:00 97.7 81 20 130/75 (93) 95 12/12/19 10:20 82 156/82 12/12/19 10:19 156/82 Intake and Output 12/12/19 12/13/19 18:59 06:59 Intake Total 1220 ml 350 ml Balance 1220 ml 350 ml Intake Oral 1220 ml 350 ml # Voids 4 2 Height (Feet): 5 Height (Inches): 4.00 Weight (Pounds): 225 Objective General Appearance: no apparent distress, alert EENT: PERRL/EOMI, normal ENT inspection Neck: non-tender, normal alignment Cardiovascular: normal rate, regular rhythm Respiratory/Chest: lungs clear, normal breath sounds Abdomen: non tender, soft Extremities: non-tender Edema: no edema noted Generalized Neurologic: alert, oriented x 3 Skin: warm/dry Steve Walker Dec 13, 2019 09:15
[2019-12-13] MEDS: Imdur 30mg tab ORAL SCH (09:40)
[2019-12-13] MEDS: Aspirin EC 81mg tab ORAL SCH (09:41)
[2019-12-13] MEDS: BuPROPion SR 150mg tab ORAL SCH (09:41)
[2019-12-13] MEDS: Morphine IR 15mg tab ORAL PRN ×2 (09:42→16:06)
[2019-12-13] MEDS: Levemir Flexpen SUBQ SCH (09:44)
[2019-12-13 12:00] VITALS: BP 135/70
--- NOTE | 2019-12-13 13:30 | NUR ---
RD ASSESSMENT & RECOMMENDATIONS SEE CARE ACTIVITY FOR COMPLETE ASSESSMENT DAILY ESTIMATED NEEDS: Needs based on DM, obesity, CHF/ 70kg abw 22-28 kcals/kg 5127-9349 total kcals 1-1.5 g protein/kg 70-105 g total protein 20-22 mL/kg 8115-8383 total fluid mLs NUTRITION DIAGNOSIS: Altered nutrition related lab values R/T diabetes, altered lipid metabolism as evidenced by elev BGs (421 253), POC glu (290 267 350 356 345), A1C of 10.2, elev triglyceride (290). CURRENT DIET:CCHO LOW, CARDIAC, DOUBLE PROTEIN PORTIONS PO DIET RECOMMENDATIONS: CCHO LOW, CARDIAC + double protein portions ADDITIONAL RECOMMENDATIONS: * DM diet ed provided on 12/09 * Monitor BGs closely, monitor adherence to diet * Monitor lytes w/ Lasix, replete as needed
[2019-12-13] MEDS ORDERED: Zolpidem 5mg tab ORAL PRN (15:45)
[2019-12-13 16:00] VITALS: BP 131/74
--- NOTE | 2019-12-13 19:05 | NUR ---
NURSE NOTES: Received report from ONEL Duggan. Pt is awake, sitting on the chair; complaining of feeling of SOB and claminess. Checked BS and VS. BS is 186. VS are normal with BP of 116/62, 75 HR, SPO2 of 95%, and T of 97.7. No signs of other acute distress noted. Pt denies any pain at this time. AOx4; able to make needs known. Checked IV site; patent and flushed. No erythema, bleeding, or infiltration noted. Bed at lowest position. Brakes on. Siderails up x2. Call light within reach. Will continue to monitor.
--- NOTE | 2019-12-13 19:11 | NUR ---
HAND-OFF: Report given to Rubina SYKES.
[2019-12-13 20:00] VITALS: BP 116/62
[2019-12-13] MEDS: Atorvastatin 80mg tab ORAL SCH (22:12)
[2019-12-14] VITALS: BP 133/71
[2019-12-14 04:00] VITALS: BP 123/81
[2019-12-14] MEDS: NovoLOG Insulin Flexpen SUBQ SCH ×7 (05:54→20:48)
--- NOTE | 2019-12-14 07:30 | NUR ---
NURSE NOTES: Received pt from from Argenis Cespedes RN. pt was resting comfortably, no c/o pain. no acute distress. call light w/in reach.
[2019-12-14 08:00] VITALS: BP 119/68
[2019-12-14] MEDS: Aspirin EC 81mg tab ORAL SCH (08:16)
[2019-12-14] MEDS: Imdur 30mg tab ORAL SCH (08:18)
[2019-12-14] MEDS: BuPROPion SR 150mg tab ORAL SCH (08:18)
[2019-12-14] MEDS: Levemir Flexpen SUBQ SCH (08:22)
--- NOTE | 2019-12-14 08:24 | NUR ---
HAND-OFF: Report given to ONEL Escamilla. Pt is awake and in stable condition. Plan of care endorsed.
[2019-12-14 12:00] VITALS: BP 130/81
--- NOTE | 2019-12-14 15:33 | General Progress Note ---
Assessment/Plan Problem List: (1) Acute exacerbation of congestive heart failure ICD Codes: I50.9 - Heart failure, unspecified SNOMED: 670201225, 24193104966348 (2) Acute exacerbation of CHF (congestive heart failure) ICD Codes: I50.9 - Heart failure, unspecified SNOMED: 648437879, 10908621528119 (3) Pain ICD Codes: R52 - Pain, unspecified SNOMED: 64208809 (4) Hyperglycemia ICD Codes: R73.9 - Hyperglycemia, unspecified SNOMED: 75547098 (5) Chest pain ICD Codes: R07.9 - Chest pain, unspecified SNOMED: 48516981 (6) Hypothyroid ICD Codes: E03.9 - Hypothyroidism, unspecified SNOMED: 07793133 (7) HTN (hypertension) ICD Codes: I10 - Essential (primary) hypertension SNOMED: 33247798 (8) Diabetes ICD Codes: E11.9 - Type 2 diabetes mellitus without complications SNOMED: 95833101 Status: progressing Assessment/Plan: chest pain chronic pain check trop no cp check sugar s/p stent niddm htn chf no acute events Subjective ROS Limited/Unobtainable: Yes Allergies: Coded Allergies: No Known Allergies (Unverified , 12/08/19) Objective Last 24 Hour Vital Signs Date Time Temp Pulse Resp B/P (MAP) Pulse Ox O2 Delivery O2 Flow Rate FiO2 12/14/19 12:00 98.0 91 20 130/81 (97) 98 12/14/19 08:18 90 119/68 12/14/19 08:18 119/68 12/14/19 08:00 97.8 90 20 119/68 (85) 94 12/14/19 07:33 Room Air 12/14/19 04:00 97.4 81 20 123/81 (95) 98 12/14/19 00:00 97.5 73 18 133/71 (91) 98 12/13/19 21:00 78 107/64 12/13/19 21:00 Room Air 12/13/19 20:00 97.7 75 20 116/62 (80) 95 12/13/19 16:50 97.0 12/13/19 16:00 97.8 78 18 131/74 (93) 94 Intake and Output 12/13/19 12/14/19 19:00 07:00 Intake Total 1000 ml Balance 1000 ml Intake Oral 1000 ml # Voids 3 Height (Feet): 5 Height (Inches): 4.00 Weight (Pounds): 225 Preston Portillo MD Dec 14, 2019 15:33
[2019-12-14 16:00] VITALS: BP 122/89
--- NOTE | 2019-12-14 19:10 | NUR ---
NURSE NOTES: Received report from Rn komal, pt laying in bed, no s/s of respiratory distress. A/o x4, breaths regular and unlabored on RA, denies any pain. Pt has left wrist 20G heplock . Bed in low locked position and call light with in reach
--- NOTE | 2019-12-14 19:29 | NUR ---
HAND-OFF: Report given to ONEL Bliss. pt is stable condition.
[2019-12-14 20:00] VITALS: BP 93/56
[2019-12-14] MEDS: Atorvastatin 80mg tab ORAL SCH (20:45)
[2019-12-15] VITALS: BP 102/66
[2019-12-15 04:00] VITALS: BP 95/56
[2019-12-15] MEDS: NovoLOG Insulin Flexpen SUBQ SCH ×7 (06:01→21:38)
--- NOTE | 2019-12-15 07:45 | NUR ---
HAND-OFF: Copy of report given to charge nurse.
[2019-12-15 08:00] VITALS: BP 131/73
[2019-12-15] MEDS: Imdur 30mg tab ORAL SCH (09:56)
[2019-12-15] MEDS: Levemir Flexpen SUBQ SCH (09:57)
[2019-12-15] MEDS: BuPROPion SR 150mg tab ORAL SCH (09:57)
[2019-12-15] MEDS: Aspirin EC 81mg tab ORAL SCH (09:57)
--- NOTE | 2019-12-15 10:00 | NUR ---
NURSE NOTES: Patient is sitting on edge of bed awake and able to verbalize needs. Stable. Denies pain or SOB. Patient instructed to use call light for assistance, verbalized understanding. Patient is in bed in locked and lowest position with call light within reach. All needs met at this time. Will continue to monitor.
--- NOTE | 2019-12-15 11:28 | General Progress Note ---
Assessment/Plan Assessment/Plan: (1) Lumbar degenerative disk disease (2) Lumbar radiculopathy (3) Lumbar spondylosis (4) H/o polysubstance abuse Patient will be continued on Morphine as needed. D/w Dr. Bull and he concurred. Subjective Date patient seen: Dec 15, 2019 Time patient seen: 11:00 - am Allergies: Coded Allergies: No Known Allergies (Unverified , 12/08/19) Subjective Constitutional: Reports: no symptoms HEENT: Reports: no symptoms Cardiovascular: Reports: no symptoms Respiratory: Reports: no symptoms Gastrointestinal/Abdominal: Reports: no symptoms Genitourinary: Reports: no symptoms Neurologic/Psychiatric: Reports: no symptoms Endocrine: Reports: no symptoms Hematologic/Lymphatic: Reports: no symptoms Subjective Patient is doing well and pain tolerated on the Morphine. Objective Last 24 Hour Vital Signs Date Time Temp Pulse Resp B/P (MAP) Pulse Ox O2 Delivery O2 Flow Rate FiO2 12/15/19 09:56 81 131/73 12/15/19 09:56 131/73 12/15/19 09:00 Room Air 12/15/19 08:00 100.1 81 21 131/73 (92) 96 12/15/19 04:00 98.4 80 16 95/56 (69) 99 12/15/19 00:00 98.6 83 18 102/66 (78) 99 12/14/19 21:00 Room Air 12/14/19 20:45 93 93/56 12/14/19 20:00 98.6 93 20 93/56 (68) 97 12/14/19 16:00 98.2 91 20 122/89 (100) 97 12/14/19 12:00 98.0 91 20 130/81 (97) 98 Intake and Output 12/14/19 12/15/19 19:00 07:00 Intake Total 1272 ml Balance 1272 ml Intake Oral 1272 ml # Voids 4 4 Height (Feet): 5 Height (Inches): 4.00 Weight (Pounds): 225 Objective General Appearance: no apparent distress, alert EENT: PERRL/EOMI, normal ENT inspection Neck: non-tender, normal alignment Cardiovascular: normal rate, regular rhythm Respiratory/Chest: lungs clear, normal breath sounds Abdomen: non tender, soft Extremities: non-tender Edema: no edema noted Generalized Neurologic: alert, oriented x 3 Skin: warm/dry Steve Walker Dec 15, 2019 11:28
[2019-12-15 12:00] VITALS: BP 124/74
[2019-12-15 16:00] VITALS: BP 127/78
--- NOTE | 2019-12-15 19:29 | NUR ---
NURSE NOTES: Received report from ONEL Millard. Dr Duran here to see patient. Addendum: 12/15/19 at 2254 by Carey Moura RN Walking rounds done, bed in low position, locked, side rails up x2, call light within reach. Patient wants a sandwich, states he ordered one earlier but didn't receive it. Will follow up. Concerned about feed edema, encouraged to elevate extremities, patient refused, says he wants more Lasix. will continue to monitor.
--- NOTE | 2019-12-15 19:44 | NUR ---
HAND-OFF: Report given to Carey SYKES. patient is stable. Paged Dr. Guthrie regarding patient's request to increase lasix.
[2019-12-15 20:00] VITALS: BP 103/45
[2019-12-15] MEDS: Atorvastatin 80mg tab ORAL SCH (21:36)
--- NOTE | 2019-12-15 22:12 | General Progress Note ---
Assessment/Plan Problem List: (1) Acute exacerbation of congestive heart failure ICD Codes: I50.9 - Heart failure, unspecified SNOMED: 626914664, 86578349379743 (2) Acute exacerbation of CHF (congestive heart failure) ICD Codes: I50.9 - Heart failure, unspecified SNOMED: 856939736, 66869953371004 (3) Pain ICD Codes: R52 - Pain, unspecified SNOMED: 45981283 (4) Hyperglycemia ICD Codes: R73.9 - Hyperglycemia, unspecified SNOMED: 01398345 (5) Chest pain ICD Codes: R07.9 - Chest pain, unspecified SNOMED: 16380538 (6) Hypothyroid ICD Codes: E03.9 - Hypothyroidism, unspecified SNOMED: 15691323 (7) HTN (hypertension) ICD Codes: I10 - Essential (primary) hypertension SNOMED: 13562670 (8) Diabetes ICD Codes: E11.9 - Type 2 diabetes mellitus without complications SNOMED: 41947950 Assessment/Plan: afebrile reviewed chart and labs s/p stent niddm htn chf no acute events Subjective Allergies: Coded Allergies: No Known Allergies (Unverified , 12/08/19) Objective Last 24 Hour Vital Signs Date Time Temp Pulse Resp B/P (MAP) Pulse Ox O2 Delivery O2 Flow Rate FiO2 12/15/19 21:00 86 106/46 12/15/19 20:00 98.3 85 18 103/45 (64) 95 12/15/19 16:00 99.2 79 19 127/78 (94) 95 12/15/19 12:00 99.0 79 19 124/74 (91) 99 12/15/19 09:56 81 131/73 12/15/19 09:56 131/73 12/15/19 09:00 Room Air 12/15/19 08:00 100.1 81 21 131/73 (92) 96 12/15/19 04:00 98.4 80 16 95/56 (69) 99 12/15/19 00:00 98.6 83 18 102/66 (78) 99 Intake and Output 12/14/19 12/15/19 19:00 07:00 Intake Total 1272 ml Balance 1272 ml Intake Oral 1272 ml # Voids 4 4 Height (Feet): 5 Height (Inches): 4.00 Weight (Pounds): 225 Preston Portillo MD Dec 15, 2019 22:12
[2019-12-16] VITALS: BP 99/54
[2019-12-16 04:00] VITALS: BP 111/70
[2019-12-16 06:06] LABS: ANION GAP 6 mmol/L (5-15); BLOOD UREA NITROGEN 25 mg/dL (7-18); CALCIUM 9.1 MG/DL (8.5-10.1); CARBON DIOXIDE 30 MMOL/L (21-32); CHLORIDE 104 MMOL/L (98-107); CREATININE 0.9 MG/DL (0.55-1.30); POTASSIUM 4.5 MMOL/L (3.5-5.1); SODIUM 140 MMOL/L (136-145)
[2019-12-16] MEDS: NovoLOG Insulin Flexpen SUBQ SCH ×7 (06:55→21:02)
--- NOTE | 2019-12-16 07:38 | NUR ---
HAND-OFF: Report given to ONEL Ferguson. Rounding done. Patient sitting in chair, eating breakfast.
--- NOTE | 2019-12-16 07:40 | NUR ---
NURSE NOTES: Patient sitting in chair eating breakfast. No complain of pain or distress at this time. IV dressing intact and dry. Bed lowest position. Call light within reach. Will continue to monitor.
[2019-12-16 08:00] VITALS: BP 126/79
--- NOTE | 2019-12-16 08:14 | General Progress Note ---
Assessment/Plan Assessment/Plan: (1) Lumbar degenerative disk disease (2) Lumbar radiculopathy (3) Lumbar spondylosis (4) H/o polysubstance abuse Patient will be continued on Morphine as needed. D/w Dr. Bull and he concurred. Subjective Date patient seen: Dec 16, 2019 Time patient seen: 07:45 - am Allergies: Coded Allergies: No Known Allergies (Unverified , 12/08/19) Subjective Constitutional: Reports: no symptoms HEENT: Reports: no symptoms Cardiovascular: Reports: no symptoms Respiratory: Reports: no symptoms Gastrointestinal/Abdominal: Reports: no symptoms Genitourinary: Reports: no symptoms Neurologic/Psychiatric: Reports: no symptoms Endocrine: Reports: no symptoms Hematologic/Lymphatic: Reports: no symptoms Subjective Patient laying in bed and reports no changes to his pain which continues to be at a moderate level tolerated on the Morphine. Has no new complaints at this time. Objective Last 24 Hour Vital Signs Date Time Temp Pulse Resp B/P (MAP) Pulse Ox O2 Delivery O2 Flow Rate FiO2 12/16/19 04:00 97.6 80 16 111/70 (84) 95 12/16/19 00:00 97.8 81 18 99/54 (69) 95 12/15/19 21:00 Room Air 12/15/19 21:00 86 106/46 12/15/19 20:00 98.3 85 18 103/45 (64) 95 12/15/19 16:00 99.2 79 19 127/78 (94) 95 12/15/19 12:00 99.0 79 19 124/74 (91) 99 12/15/19 09:56 81 131/73 12/15/19 09:56 131/73 12/15/19 09:00 Room Air Intake and Output 12/15/19 12/16/19 19:00 07:00 Intake Total 1440 ml 1300 ml Balance 1440 ml 1300 ml Intake Oral 1440 ml 1300 ml # Voids 3 Laboratory Tests 12/16/19 05:05: Sodium Level 140, Potassium Level 4.5, Chloride Level 104, Carbon Dioxide Level 30, Anion Gap 6, Blood Urea Nitrogen 25H, Creatinine 0.9, Estimat Glomerular Filtration Rate > 60, Glucose Level 230H, Calcium Level 9.1, Magnesium Level 1.9 , Pro-B-Type Natriuretic Peptide 135H Height (Feet): 5 Height (Inches): 4.00 Weight (Pounds): 225 Objective General Appearance: no apparent distress, alert EENT: PERRL/EOMI, normal ENT inspection Neck: non-tender, normal alignment Cardiovascular: normal rate, regular rhythm Respiratory/Chest: lungs clear, normal breath sounds Abdomen: non tender, soft Extremities: non-tender Edema: no edema noted Generalized Neurologic: alert, oriented x 3 Skin: warm/dry Stvee Walker Dec 16, 2019 08:14
[2019-12-16] MEDS: Aspirin EC 81mg tab ORAL SCH (09:18)
[2019-12-16] MEDS: BuPROPion SR 150mg tab ORAL SCH (09:18)
[2019-12-16] MEDS: Imdur 30mg tab ORAL SCH (09:19)
[2019-12-16] MEDS: Levemir Flexpen SUBQ SCH (09:31)
[2019-12-16 12:00] VITALS: BP 153/80
--- NOTE | 2019-12-16 13:26 | NUR ---
NURSE NOTES: Spoke to regarding shower. Per : patient can shower with assist. Order noted and carried out.
--- NOTE | 2019-12-16 13:28 | NUR ---
NURSE NOTES: Patient is in bed awake and able to verbalize needs. Stable. Denies pain or SOB. Plan of care continued. Patient encouraged to use call light for assistance, verbalized understanding. Patient is in bed in locked and lowest position with call light within reach. All safety measures provided. Will continue to monitor.
[2019-12-16 16:00] VITALS: BP 120/81
--- NOTE | 2019-12-16 17:59 | NUR ---
NURSE NOTES: Patient is agitated and complaining of swollen extremities. Patient refuses to reposition from his sitting position. Patient made aware of importance of diet and lifestyle in relation to his current condition. Patient disagrees and says that his diet and his refusal to be active has nothing to do with his condition. RN reinforced teaching multiple times throughout shift, patient continues to disagree and gets upset. Patient is noncompliant with plan of care. Will continue to monitor patient.
--- NOTE | 2019-12-16 19:31 | NUR ---
HAND-OFF: Report given to Carey SYKES. Patient is stable.
--- NOTE | 2019-12-16 19:33 | NUR ---
NURSE NOTES: Report received from ONEL Millard. Patient was ambulating in hallway earlier, noted steady gait. Rounding done with ONEL Millard, now patient sleeping quietly, no distress noted. Bed in low position, locked, side rails up x2, call light within reach. Will continue to monitor.
[2019-12-16 20:00] VITALS: BP 104/59
--- NOTE | 2019-12-16 20:00 | Progress Note ---
DATE: 12/16/2019 SUBJECTIVE: The patient in bed, more communicative, alert and oriented. The patient is sitting up, able to interact more appropriately. MENTAL STATUS EXAMINATION: The patient is alert and oriented times self, place. Mood is neutral. Affect is flat. Thought process is concrete. Thought content, no suicidal or homicidal ideation. Cognition is improved. Insight and judgment is fair. ASSESSMENT: Major depressive disorder. PLAN: 1. Continue mirtazapine. 2. Provide the patient with reality orientation and supportive therapy. Kiko Botello M.D. DR: Karen JOB#: [id number] CC:
--- NOTE | 2019-12-16 20:10 | NUR ---
NURSE NOTES: Patient upset that he's not getting more Lasix. Explained that physician is aware and no orders were given. Charge nurse aware as well. Complained of swelling in bilat hands and BLE. Instructed to lay down and elevate extremities. Patient refused, says that he's "done that all day" Provided with HS snack, wants another sandwich. Discussed dietary recommendations for HS snack, patient states "but that's not what I want, I want another sandwich" . Will get sandwich and continue to monitor patient. Encouraged to call as needed.
--- NOTE | 2019-12-16 20:48 | General Progress Note ---
Assessment/Plan Problem List: (1) Acute exacerbation of congestive heart failure ICD Codes: I50.9 - Heart failure, unspecified SNOMED: 995940011, [id number] (2) Acute exacerbation of CHF (congestive heart failure) ICD Codes: I50.9 - Heart failure, unspecified SNOMED: 693028323, 90890944943731 (3) Pain ICD Codes: R52 - Pain, unspecified SNOMED: 55816038 (4) Hyperglycemia ICD Codes: R73.9 - Hyperglycemia, unspecified SNOMED: 36633392 (5) Chest pain ICD Codes: R07.9 - Chest pain, unspecified SNOMED: 91278649 (6) Hypothyroid ICD Codes: E03.9 - Hypothyroidism, unspecified SNOMED: 43477198 (7) HTN (hypertension) ICD Codes: I10 - Essential (primary) hypertension SNOMED: 38989157 (8) Diabetes ICD Codes: E11.9 - Type 2 diabetes mellitus without complications SNOMED: 68095797 Status: progressing Assessment/Plan: no cp r/p acs check trop high risk for UT s/p stent niddm htn chf no acute events Subjective ROS Limited/Unobtainable: Yes Allergies: Coded Allergies: No Known Allergies (Unverified , 12/08/19) Objective Last 24 Hour Vital Signs Date Time Temp Pulse Resp B/P (MAP) Pulse Ox O2 Delivery O2 Flow Rate FiO2 12/16/19 20:00 98.7 84 15 104/59 (74) 94 12/16/19 16:00 99.3 77 18 120/81 (94) 97 12/16/19 12:00 97.5 76 20 153/80 (104) 95 12/16/19 09:19 126/79 12/16/19 09:18 78 126/79 12/16/19 09:00 Room Air 12/16/19 08:00 98.7 78 18 126/79 (95) 95 12/16/19 04:00 97.6 80 16 111/70 (84) 95 12/16/19 00:00 97.8 81 18 99/54 (69) 95 12/15/19 21:00 Room Air 12/15/19 21:00 86 106/46 Intake and Output 12/15/19 12/16/19 19:00 07:00 Intake Total 1440 ml 1300 ml Balance 1440 ml 1300 ml Intake Oral 1440 ml 1300 ml # Voids 3 Laboratory Tests 12/16/19 05:05: Sodium Level 140, Potassium Level 4.5, Chloride Level 104, Carbon Dioxide Level 30, Anion Gap 6, Blood Urea Nitrogen 25H, Creatinine 0.9, Estimat Glomerular Filtration Rate > 60, Glucose Level 230H, Calcium Level 9.1, Magnesium Level 1.9 , Pro-B-Type Natriuretic Peptide 135H Height (Feet): 5 Height (Inches): 4.00 Weight (Pounds): 225 Neck: supple Cardiovascular: normal rate Respiratory/Chest: lungs clear Abdomen: soft Preston Portillo MD Dec 16, 2019 20:48
[2019-12-16] MEDS: Atorvastatin 80mg tab ORAL SCH (20:56)
--- NOTE | 2019-12-16 21:20 | NUR ---
NURSE NOTES: I asked patient to let me take Lidocaine patch off. He says that it came off earlier when he took a shower. I asked that he would allow me to see, patient was upset, said "you don't believe me". Addendum: 12/16/19 at 2152 by Carey Moura RN Patient allowed nurse to see part of his back, no Lidoderm patch seen.
[2019-12-17] VITALS: BP 109/63
[2019-12-17 04:00] VITALS: BP 106/65
[2019-12-17] MEDS: NovoLOG Insulin Flexpen SUBQ SCH ×7 (06:34→21:54)
--- NOTE | 2019-12-17 07:02 | General Progress Note ---
Assessment/Plan Problem List: (1) Hypothyroid ICD Codes: E03.9 - Hypothyroidism, unspecified SNOMED: 49509815 (2) Acute exacerbation of CHF (congestive heart failure) ICD Codes: I50.9 - Heart failure, unspecified SNOMED: 813685050, 85282070631401 (3) Hyperglycemia ICD Codes: R73.9 - Hyperglycemia, unspecified SNOMED: 91723987 (4) Chest pain ICD Codes: R07.9 - Chest pain, unspecified SNOMED: 66675417 Status: progressing Assessment/Plan: continue Levemir 44 units qam continue Novolog 16 units ac tid + sliding scale ac / hs continue Starlix 120 mg ac tid continue Januvia 100 mg daily continue Levothyroxine 50 mcg daily Subjective Allergies: Coded Allergies: No Known Allergies (Unverified , 12/08/19) All Systems: reviewed and negative except above Subjective events noted glucose values improved Item Value Date Time Bedside Blood Glucose 199 mg/dl H 12/17/19 0635 Bedside Blood Glucose 159 mg/dl H 12/16/19 2102 Bedside Blood Glucose 187 mg/dl H 12/16/19 1651 Bedside Blood Glucose 287 mg/dl H 12/16/19 1322 Bedside Blood Glucose 223 mg/dl H 12/16/19 0931 Bedside Blood Glucose 223 mg/dl H 12/16/19 0656 Objective Last 24 Hour Vital Signs Date Time Temp Pulse Resp B/P (MAP) Pulse Ox O2 Delivery O2 Flow Rate FiO2 12/17/19 04:00 98.7 81 16 106/65 (79) 95 12/17/19 00:00 98.5 79 16 109/63 (78) 95 12/16/19 21:00 Room Air 12/16/19 20:59 84 104/59 12/16/19 20:00 98.7 84 15 104/59 (74) 94 12/16/19 16:00 99.3 77 18 120/81 (94) 97 12/16/19 12:00 97.5 76 20 153/80 (104) 95 12/16/19 09:19 126/79 12/16/19 09:18 78 126/79 12/16/19 09:00 Room Air 12/16/19 08:00 98.7 78 18 126/79 (95) 95 Intake and Output 12/16/19 12/17/19 19:00 07:00 Intake Total 400 ml 360 ml Balance 400 ml 360 ml Intake Oral 400 ml 360 ml # Voids 3 2 Height (Feet): 5 Height (Inches): 4.00 Weight (Pounds): 225 General Appearance: no apparent distress Neck: normal alignment Cardiovascular: normal rate Respiratory/Chest: lungs clear Abdomen: normal bowel sounds Pelvis: normal external exam Edema: 1+ Arm (L), 1+ Arm (R), 1+ Leg (L), 1+ Leg (R), 1+ Pedal (L), 1+ Pedal ( R), 1+ Generalized Objective Current Medications Medications (Trade) Dose Ordered Sig/Rodney Route PRN Reason Start Time Stop Time Status Last Admin Dose Admin Acetaminophen (Tylenol) 650 mg Q4H PRN ORAL T>100.5 12/13/19 09:45 01/07/20 06:14 Aspirin (Ecotrin) 81 mg DAILY ORAL 12/13/19 09:00 01/08/20 08:59 12/16/19 09:18 Atorvastatin Calcium (Lipitor) 80 mg BEDTIME ORAL 12/13/19 21:00 01/07/20 20:59 12/16/19 20:56 Bupropion HCl (Wellbutrin SR) 150 mg DAILY ORAL 12/13/19 09:00 01/10/20 08:59 12/16/19 09:18 Clopidogrel Bisulfate (Plavix) 75 mg DAILY ORAL 12/13/19 09:00 01/08/20 08:59 12/16/19 09:18 Dextrose (Dextrose 50%) 25 ml Q30M PRN IV Hypoglycemia 12/13/19 06:15 01/08/20 06:14 Dextrose (Dextrose 50%) 50 ml Q30M PRN IV Hypoglycemia 12/13/19 06:15 01/08/20 06:14 Furosemide (Lasix) 20 mg BID IV 12/13/19 09:00 01/09/20 17:59 12/16/19 17:49 Gabapentin (Neurontin) 300 mg BEDTIME ORAL 12/13/19 21:00 01/07/20 20:59 12/16/19 20:56 Gabapentin (Neurontin) 300 mg THREE TIMES A DAY ORAL 12/13/19 09:00 01/08/20 09:59 12/16/19 17:48 Insulin Aspart (NovoLOG) BEFORE MEALS AND HS SUBQ 12/13/19 06:30 01/07/20 16:29 12/17/19 06:34 Insulin Aspart (NovoLOG) 14 units NOVOTIAC SUBQ 12/13/19 06:30 01/08/20 06:29 12/17/19 06:35 Insulin Detemir (Levemir) 44 units DAILY SUBQ 12/13/19 09:00 01/08/20 08:59 12/16/19 09:31 Isosorbide Mononitrate (Imdur) 60 mg DAILY ORAL 12/13/19 09:00 01/11/20 08:59 12/16/19 09:19 Levothyroxine Sodium (Synthroid) 50 mcg DAILY@0630 ORAL 12/13/19 06:30 01/08/20 06:29 12/17/19 06:32 Lidocaine (Lidoderm 5% PATCH) 1 patch DAILY TDERMAL 12/13/19 09:00 01/08/20 09:59 12/16/19 09:18 Methocarbamol (Robaxin) 500 mg Q8H PRN ORAL muscle spasm 12/13/19 06:15 01/08/20 06:14 Metoprolol Tartrate (Lopressor) 25 mg EVERY 12 HOURS ORAL 12/13/19 09:00 01/07/20 20:59 12/16/19 09:18 Mirtazapine (Remeron) 7.5 mg BEDTIME ORAL 12/13/19 21:00 01/07/20 20:59 12/14/19 20:45 Morphine HCl (Morphine IR) 7.5 mg Q4H PRN ORAL For Pain 12/13/19 10:00 12/20/19 09:59 12/13/19 16:06 Nateglinide (Starlix) 120 mg THREE TIMES A DAY ORAL 12/13/19 09:00 01/05/20 12:59 12/16/19 17:48 Nitroglycerin (Ntg) 0.4 mg Q5M PRN SL Prn Chest Pain 12/13/19 06:05 01/09/20 17:59 Pantoprazole (Protonix) 40 mg DAILY ORAL 12/13/19 09:00 01/08/20 08:59 12/16/19 09:18 Sitagliptin Phosphate (Januvia) 100 mg ACBREAKFAST ORAL 12/13/19 06:30 01/08/20 06:29 12/17/19 06:32 Shon Maldonado MD Dec 17, 2019 07:02
--- NOTE | 2019-12-17 07:20 | NUR ---
HAND-OFF: Report given to ONEL Mann. Patient up in chair, eating breakfast.
--- NOTE | 2019-12-17 07:37 | NUR ---
NURSE NOTES: pt awake alert, no distress. no c/o pain. call light within reach. will monitor. bed in lowest position, locked.
[2019-12-17 07:57] VITALS: BP 131/85
[2019-12-17] MEDS: BuPROPion SR 150mg tab ORAL SCH (08:05)
[2019-12-17] MEDS: Aspirin EC 81mg tab ORAL SCH (08:05)
[2019-12-17] MEDS: Imdur 30mg tab ORAL SCH (08:07)
--- NOTE | 2019-12-17 08:08 | NUR ---
CASE MANAGEMENT:REVIEW 12/12/19 SI: CHF EXACERBATION. HYPERGLYCEMIA. CHEST PAIN 97.5 88 16 134/77 98% ON RA H/H 12.9/36.2 NA+ 134 BUN 34 CREAT 1.4 BG 421 IS: IV LASIX BID IMDUR PO QD PLAVIX PO QD GABAPENTIN PO TID LOPRESSOR PO BID PROTONIX PO QD ASPIRIN PO QD LIPITOR PO QHS WELLBUTRIN SR PO QD NOVOLOG SQ AC&HS + SS LEVEMIR SQ QD JANUVIA PO AC :TRANSFER 3E MED SURG UNIT CASE MANAGEMENT:REVIEW 12/16/19 SI: CHF EXACERBATION. HYPERGLYCEMIA. CHEST PAIN 98.7 78 18 126/79 95% ON RA BUN 25 BG 230 IS: IV LASIX BID IMDUR PO QD PLAVIX PO QD GABAPENTIN PO TID LOPRESSOR PO BID PROTONIX PO QD ASPIRIN PO QD LIPITOR PO QHS WELLBUTRIN SR PO QD NOVOLOG SQ AC&HS + SS LEVEMIR SQ QD JANUVIA PO AC :TRANSFER 3E MED SURG UNIT PLAN: CM MET WITH PATIENT TO DISCUSS APPEAL PATIENT STILL COMPLAINING OF SWELLING TO LEGS PATIENT UP IN CHAIR
[2019-12-17] MEDS: Levemir Flexpen SUBQ SCH (08:26)
--- NOTE | 2019-12-17 08:59 | General Progress Note ---
Assessment/Plan Assessment/Plan: (1) Lumbar degenerative disk disease (2) Lumbar radiculopathy (3) Lumbar spondylosis (4) H/o polysubstance abuse Patient will be continued on Morphine as needed. D/w Dr. Bull and he concurred. Subjective Date patient seen: Dec 17, 2019 Time patient seen: 08:30 - am Allergies: Coded Allergies: No Known Allergies (Unverified , 12/08/19) Subjective Constitutional: Reports: no symptoms HEENT: Reports: no symptoms Cardiovascular: Reports: no symptoms Respiratory: Reports: no symptoms Gastrointestinal/Abdominal: Reports: no symptoms Genitourinary: Reports: no symptoms Neurologic/Psychiatric: Reports: no symptoms Endocrine: Reports: no symptoms Hematologic/Lymphatic: Reports: no symptoms Subjective Patient sitting up showing no signs of pain or distress. Denies pain at this time. Has not requested the Morphine in the last 24hrs. Objective Last 24 Hour Vital Signs Date Time Temp Pulse Resp B/P (MAP) Pulse Ox O2 Delivery O2 Flow Rate FiO2 12/17/19 08:07 131/85 12/17/19 08:06 85 131/85 12/17/19 08:00 Room Air 12/17/19 07:57 98.7 85 16 131/85 (100) 95 12/17/19 04:00 98.7 81 16 106/65 (79) 95 12/17/19 00:00 98.5 79 16 109/63 (78) 95 12/16/19 21:00 Room Air 12/16/19 20:59 84 104/59 12/16/19 20:00 98.7 84 15 104/59 (74) 94 12/16/19 16:00 99.3 77 18 120/81 (94) 97 12/16/19 12:00 97.5 76 20 153/80 (104) 95 12/16/19 09:19 126/79 12/16/19 09:18 78 126/79 12/16/19 09:00 Room Air Intake and Output 12/16/19 12/17/19 19:00 07:00 Intake Total 400 ml 360 ml Balance 400 ml 360 ml Intake Oral 400 ml 360 ml # Voids 3 2 Height (Feet): 5 Height (Inches): 4.00 Weight (Pounds): 225 Objective General Appearance: no apparent distress, alert EENT: PERRL/EOMI, normal ENT inspection Neck: non-tender, normal alignment Cardiovascular: normal rate, regular rhythm Respiratory/Chest: lungs clear, normal breath sounds Abdomen: non tender, soft Extremities: non-tender Edema: no edema noted Generalized Neurologic: alert, oriented x 3 Skin: warm/dry Steve Walker Dec 17, 2019 08:58
[2019-12-17 11:04] VITALS: BP 151/90
--- NOTE | 2019-12-17 13:47 | General Progress Note ---
Assessment/Plan Problem List: (1) Diabetes ICD Codes: E11.9 - Type 2 diabetes mellitus without complications SNOMED: 85754501 (2) HTN (hypertension) ICD Codes: I10 - Essential (primary) hypertension SNOMED: 83932395 (3) Malnutrition ICD Codes: E46 - Unspecified protein-calorie malnutrition SNOMED: 44521304 (4) Chest pain ICD Codes: R07.9 - Chest pain, unspecified SNOMED: 56230630 (5) Hyperglycemia ICD Codes: R73.9 - Hyperglycemia, unspecified SNOMED: 65415966 (6) Pain ICD Codes: R52 - Pain, unspecified SNOMED: 20592842 (7) Acute exacerbation of CHF (congestive heart failure) ICD Codes: I50.9 - Heart failure, unspecified SNOMED: 104597723, 28296140401291 (8) Hypothyroid ICD Codes: E03.9 - Hypothyroidism, unspecified SNOMED: 77749356 Status: stable, progressing Assessment/Plan: pt diet bp pain control dc if clear by cardio and neuro cbc bmp am Subjective Constitutional: Reports: weakness Allergies: Coded Allergies: No Known Allergies (Unverified , 12/08/19) All Systems: reviewed and negative except above Subjective sl anxious in bed c/o foot swelling Objective Last 24 Hour Vital Signs Date Time Temp Pulse Resp B/P (MAP) Pulse Ox O2 Delivery O2 Flow Rate FiO2 12/17/19 11:04 98.7 85 16 151/90 (110) 95 12/17/19 08:07 131/85 12/17/19 08:06 85 131/85 12/17/19 08:00 Room Air 12/17/19 07:57 98.7 85 16 131/85 (100) 95 12/17/19 04:00 98.7 81 16 106/65 (79) 95 12/17/19 00:00 98.5 79 16 109/63 (78) 95 12/16/19 21:00 Room Air 12/16/19 20:59 84 104/59 12/16/19 20:00 98.7 84 15 104/59 (74) 94 12/16/19 16:00 99.3 77 18 120/81 (94) 97 Intake and Output 12/16/19 12/17/19 19:00 07:00 Intake Total 400 ml 360 ml Balance 400 ml 360 ml Intake Oral 400 ml 360 ml # Voids 3 2 Height (Feet): 5 Height (Inches): 4.00 Weight (Pounds): 225 General Appearance: alert EENT: normal ENT inspection Neck: normal alignment Cardiovascular: normal peripheral pulses, normal rate, regular rhythm Respiratory/Chest: chest wall non-tender, lungs clear, normal breath sounds Abdomen: normal bowel sounds, non tender, soft Extremities: normal inspection Edema: 1+ Arm (L), 1+ Arm (R), 1+ Leg (L), 1+ Leg (R), 1+ Pedal (L), 1+ Pedal ( R), 1+ Generalized Neurologic: responsive, motor weakness Skin: normal pigmentation, warm/dry Fermín Griggs DO Dec 17, 2019 13:47
[2019-12-17 15:51] VITALS: BP 122/72
--- NOTE | 2019-12-17 17:00 | Geriatric Medicine Prog Note ---
DATE: 12/15/2019 SUBJECTIVE: The patient iw qabout the same OBJECTIVE: Vital Signs: stable RESP:Cleqar,CVS-Regular INV:Glucose 225 mg% ASSESSMENT:Diabetes Mellitus in fair control PLANS:Levemir 40u sc [id number] and Sliding scale Novolog QID ac and HS Arnie Constantino M.D. DR: ANICETO JOB#: [id number] CC: KOLBY
--- NOTE | 2019-12-17 17:00 | Geriatric Medicine Prog Note ---
DATE: 12/13/2019 SUBJECTIVE: The patient appears comfortable, sitting in the chair. OBJECTIVE: VITAL SIGNS: BP 131/74, pulse 78, respiratory rate 18, temperature 97.8. RESP:clear,CVS-Regular INV:: glucose 269 ASSESSMENT:Diabetes Mellitus in fair control. PLANS: Continue accuchecks QID ac an d HS with moderats sliding scale Novolog Arnie Constantino M.D. DRMarty MORELAND JOB#: [id number] CC: KOLBY
--- NOTE | 2019-12-17 17:00 | Geriatric Medicine Prog Note ---
DATE: 12/14/2019 SUBJECTIVE: The patient is comfortable today OBJECTIVE: VITAL SIGNS: stable RESP:Clear,CVS-Regular INV:Glucose 225 mg % ASSESSSMENT:Diabetes /mellitus in fair control PLANS:Continue Levemir NovoLog 40 units BID with moderate sliding scale Novolog Arnie Constantino M.D. DR: ANICETO JOB#: [id number] CC: KOLBY
--- NOTE | 2019-12-17 17:15 | Geriatric Medicine Prog Note ---
DATE: 12/16/2019 SUBJECTIVE: The patient is comfortable__ most of the day, but still complains of swelling, OBJECTIVE:VS stable RESP:Clear,CVS-Regular INV:Glucose 190 ASSESSMNT:Diabetes Mellitus in fair control PLANS: Levemir 40u sc Q12h and sliding scale Novolog QID ac and HS Arnie Constantino M.D. DR: ANICETO JOB#: [id number] CC: KOLBY
--- NOTE | 2019-12-17 19:15 | NUR ---
NURSE NOTES: Received report from ONEL Perkins. Patient A&Ox4, sitting in chair. On room air, no signs of distress or labored breathing. IV intact, patent, and saline locked. Will continue with plan of care.
[2019-12-17 20:00] VITALS: BP 101/72
--- NOTE | 2019-12-17 21:30 | Progress Note ---
DATE: 12/17/2019 SUBJECTIVE: The patient is complaining of whole body edema. The patient stated he is anxious and worried medically he is getting destabilized. The patient presented with depressed mood, anxiety. Compliant with medication. MENTAL STATUS EXAMINATION: The patient is alert, oriented times self, place, and situation. Mood is anxious. Affect is constricted, congruent with mood. Thought process is concrete. Thought content, no suicidal or homicidal ideation. Cognition is impaired. Insight and judgment is impaired. ASSESSMENT: 1. Anxiety disorder. 2. Major depressive disorder. 3. Somatoform disorder. PLAN: We will continue current medication. Provide the patient with reality orientation and supportive therapy. Kiko Botello M.D. DR: GISSELLE JOB#: [id number] CC:
[2019-12-17] MEDS: Atorvastatin 80mg tab ORAL SCH (21:51)
[2019-12-18] VITALS: BP 115/56
[2019-12-18 04:00] VITALS: BP 150/92
[2019-12-18] MEDS: NovoLOG Insulin Flexpen SUBQ SCH ×7 (06:31→21:00)
--- NOTE | 2019-12-18 06:54 | General Progress Note ---
Assessment/Plan Problem List: (1) Hypothyroid ICD Codes: E03.9 - Hypothyroidism, unspecified SNOMED: 60952534 (2) Acute exacerbation of CHF (congestive heart failure) ICD Codes: I50.9 - Heart failure, unspecified SNOMED: 469358798, 93735295598058 (3) Hyperglycemia ICD Codes: R73.9 - Hyperglycemia, unspecified SNOMED: 26406327 (4) Chest pain ICD Codes: R07.9 - Chest pain, unspecified SNOMED: 73692788 Status: stable, progressing Assessment/Plan: increase Levemir to 52 units qam increase Novolog to 18 units ac tid + sliding scale ac / hs continue Starlix 120 mg ac tid continue Januvia 100 mg daily continue Levothyroxine 50 mcg daily Subjective Allergies: Coded Allergies: No Known Allergies (Unverified , 12/08/19) All Systems: reviewed and negative except above Subjective events noted glucose values are elevated despite high dose insulin regimen Item Value Date Time Bedside Blood Glucose 265 mg/dl H 12/18/19 0631 Bedside Blood Glucose 297 mg/dl H 12/17/19 2154 Bedside Blood Glucose 273 mg/dl H 12/17/19 1707 Bedside Blood Glucose 188 mg/dl H 12/17/19 1211 Bedside Blood Glucose 199 mg/dl H 12/17/19 0826 Bedside Blood Glucose 199 mg/dl H 12/17/19 0635 Objective Last 24 Hour Vital Signs Date Time Temp Pulse Resp B/P (MAP) Pulse Ox O2 Delivery O2 Flow Rate FiO2 12/18/19 04:00 97.6 81 16 150/92 (111) 97 12/18/19 00:00 98.0 85 18 115/56 (75) 97 12/17/19 21:00 83 101/72 12/17/19 21:00 Room Air 12/17/19 20:00 98.2 83 17 101/72 (82) 96 12/17/19 15:51 98.7 86 16 122/72 (89) 95 12/17/19 11:04 98.7 85 16 151/90 (110) 95 12/17/19 08:07 131/85 12/17/19 08:06 85 131/85 12/17/19 08:00 Room Air 12/17/19 07:57 98.7 85 16 131/85 (100) 95 Intake and Output 2/18/20 2/19/20 19:00 07:00 Intake Total 720 ml 360 ml Balance 720 ml 360 ml Intake Oral 720 ml 360 ml # Voids 2 2 Laboratory Tests 12/18/19 05:50: White Blood Count [Pending], Red Blood Count [Pending], Hemoglobin [Pending], Hematocrit [Pending], Mean Corpuscular Volume [Pending], Mean Corpuscular Hemoglobin [Pending], Mean Corpuscular Hemoglobin Concent [Pending], Red Cell Distribution Width [Pending], Platelet Count [Pending], Mean Platelet Volume [ Pending], Neutrophils (%) (Auto) [Pending], Lymphocytes (%) (Auto) [Pending], Monocytes (%) (Auto) [Pending], Eosinophils (%) (Auto) [Pending], Basophils (%) (Auto) [Pending], Sodium Level [Pending], Potassium Level [Pending], Chloride Level [Pending], Carbon Dioxide Level [Pending], Blood Urea Nitrogen [Pending], Creatinine [Pending], Estimat Glomerular Filtration Rate [Pending], Glucose Level [Pending], Calcium Level [Pending] Height (Feet): 5 Height (Inches): 4.00 Weight (Pounds): 225 General Appearance: no apparent distress Neck: normal alignment Cardiovascular: normal rate Respiratory/Chest: lungs clear Abdomen: normal bowel sounds Objective Current Medications Medications (Trade) Dose Ordered Sig/Rodney Route PRN Reason Start Time Stop Time Status Last Admin Dose Admin Acetaminophen (Tylenol) 650 mg Q4H PRN ORAL T>100.5 12/13/19 09:45 01/07/20 06:14 Aspirin (Ecotrin) 81 mg DAILY ORAL 12/13/19 09:00 01/08/20 08:59 12/17/19 08:05 Atorvastatin Calcium (Lipitor) 80 mg BEDTIME ORAL 12/13/19 21:00 01/07/20 20:59 12/17/19 21:51 Bupropion HCl (Wellbutrin SR) 150 mg DAILY ORAL 12/13/19 09:00 01/10/20 08:59 12/17/19 08:05 Clopidogrel Bisulfate (Plavix) 75 mg DAILY ORAL 12/13/19 09:00 01/08/20 08:59 12/17/19 08:06 Dextrose (Dextrose 50%) 25 ml Q30M PRN IV Hypoglycemia 12/13/19 06:15 01/08/20 06:14 Dextrose (Dextrose 50%) 50 ml Q30M PRN IV Hypoglycemia 12/13/19 06:15 01/08/20 06:14 Furosemide (Lasix) 20 mg BID IV 12/13/19 09:00 01/09/20 17:59 12/17/19 17:08 Gabapentin (Neurontin) 300 mg BEDTIME ORAL 12/13/19 21:00 01/07/20 20:59 12/17/19 21:51 Gabapentin (Neurontin) 300 mg THREE TIMES A DAY ORAL 12/13/19 09:00 01/08/20 09:59 12/17/19 17:08 Insulin Aspart (NovoLOG) BEFORE MEALS AND HS SUBQ 12/13/19 06:30 01/07/20 16:29 12/18/19 06:31 Insulin Aspart (NovoLOG) 14 units NOVOTIAC SUBQ 12/13/19 06:30 01/08/20 06:29 12/18/19 06:31 Insulin Detemir (Levemir) 44 units DAILY SUBQ 12/13/19 09:00 01/08/20 08:59 12/17/19 08:26 Isosorbide Mononitrate (Imdur) 60 mg DAILY ORAL 12/13/19 09:00 01/11/20 08:59 12/17/19 08:07 Levothyroxine Sodium (Synthroid) 50 mcg DAILY@0630 ORAL 12/13/19 06:30 01/08/20 06:29 12/18/19 06:32 Lidocaine (Lidoderm 5% PATCH) 1 patch DAILY TDERMAL 12/13/19 09:00 01/08/20 09:59 12/17/19 08:07 Methocarbamol (Robaxin) 500 mg Q8H PRN ORAL muscle spasm 12/13/19 06:15 01/08/20 06:14 Metoprolol Tartrate (Lopressor) 25 mg EVERY 12 HOURS ORAL 12/13/19 09:00 01/07/20 20:59 12/17/19 08:06 Mirtazapine (Remeron) 7.5 mg BEDTIME ORAL 12/13/19 21:00 01/07/20 20:59 12/17/19 21:51 Morphine HCl (Morphine IR) 7.5 mg Q4H PRN ORAL For Pain 12/13/19 10:00 12/20/19 09:59 12/13/19 16:06 Nateglinide (Starlix) 120 mg THREE TIMES A DAY ORAL 12/13/19 09:00 01/05/20 12:59 12/17/19 17:08 Nitroglycerin (Ntg) 0.4 mg Q5M PRN SL Prn Chest Pain 12/13/19 06:05 01/09/20 17:59 Pantoprazole (Protonix) 40 mg DAILY ORAL 12/13/19 09:00 01/08/20 08:59 12/17/19 08:06 Sitagliptin Phosphate (Januvia) 100 mg ACBREAKFAST ORAL 12/13/19 06:30 01/08/20 06:29 12/18/19 06:32 Shon Maldonado MD Dec 18, 2019 06:54
[2019-12-18 06:59] LABS: ANION GAP 8 mmol/L (5-15); BLOOD UREA NITROGEN 25 mg/dL (7-18); CARBON DIOXIDE 28 MMOL/L (21-32); CHLORIDE 103 MMOL/L (98-107); POTASSIUM 4.2 MMOL/L (3.5-5.1); SODIUM 139 MMOL/L (136-145)
[2019-12-18 07:10] LABS: BASOPHILS % (AUTO) 0.9 % (0.0-2.0); EOSINOPHILS % (AUTO) 3.3 % (0.0-3.0); HEMATOCRIT 34.2 % (42.0-52.0); HEMOGLOBIN 12.2 G/DL (14.2-18.0); LYMPHOCYTES % (AUTO) 22.4 % (20.0-45.0); MEAN CORPUSCULAR VOLUME 91 FL (80-99); MONOCYTES % (AUTO) 10.4 % (1.0-10.0); PLATELET COUNT 241 K/UL (150-450); RED BLOOD COUNT 3.76 M/UL (4.70-6.10); RED CELL DISTRIBUTION WIDTH 12.3 % (11.6-14.8); WHITE BLOOD COUNT 8.4 K/UL (4.8-10.8)
--- NOTE | 2019-12-18 07:17 | NUR ---
HAND-OFF: Report given to ONEL Moore.
--- NOTE | 2019-12-18 07:30 | NUR ---
NURSE NOTES: AWAKE/ALERT. PAIN SCALE 8/10. BLE AND HANDS SWOLLEN. IN NO APPARENT DISTRESS.
[2019-12-18 08:00] VITALS: BP 122/79
[2019-12-18] MEDS: Imdur 30mg tab ORAL SCH (08:38)
[2019-12-18] MEDS: Aspirin EC 81mg tab ORAL SCH (08:38)
[2019-12-18] MEDS: Levemir Flexpen SUBQ SCH (08:48)
--- NOTE | 2019-12-18 08:56 | General Progress Note ---
Assessment/Plan Assessment/Plan: (1) Lumbar degenerative disk disease (2) Lumbar radiculopathy (3) Lumbar spondylosis (4) H/o polysubstance abuse Patient will be continued on Morphine as needed. D/w Dr. Bull and he concurred. Subjective Date patient seen: Dec 18, 2019 Time patient seen: 08:30 - am Allergies: Coded Allergies: No Known Allergies (Unverified , 12/08/19) Subjective Constitutional: Reports: no symptoms HEENT: Reports: no symptoms Cardiovascular: Reports: no symptoms Respiratory: Reports: no symptoms Gastrointestinal/Abdominal: Reports: no symptoms Genitourinary: Reports: no symptoms Neurologic/Psychiatric: Reports: no symptoms Endocrine: Reports: no symptoms Hematologic/Lymphatic: Reports: no symptoms Subjective Patient showing no signs of pain or distress, Denies pain at this time. with no new complaints Objective Last 24 Hour Vital Signs Date Time Temp Pulse Resp B/P (MAP) Pulse Ox O2 Delivery O2 Flow Rate FiO2 12/18/19 08:38 84 122/79 12/18/19 08:38 122/79 12/18/19 08:00 98.7 84 122/79 (93) 12/18/19 04:00 97.6 81 16 150/92 (111) 97 12/18/19 00:00 98.0 85 18 115/56 (75) 97 12/17/19 21:00 83 101/72 12/17/19 21:00 Room Air 12/17/19 20:00 98.2 83 17 101/72 (82) 96 12/17/19 15:51 98.7 86 16 122/72 (89) 95 12/17/19 11:04 98.7 85 16 151/90 (110) 95 Intake and Output 12/17/19 12/18/19 19:00 07:00 Intake Total 720 ml 360 ml Balance 720 ml 360 ml Intake Oral 720 ml 360 ml # Voids 2 2 Laboratory Tests 12/18/19 05:50: White Blood Count 8.4, Red Blood Count 3.76L, Hemoglobin 12.2L, Hematocrit 34.2L , Mean Corpuscular Volume 91, Mean Corpuscular Hemoglobin 32.5H, Mean Corpuscular Hemoglobin Concent 35.8, Red Cell Distribution Width 12.3, Platelet Count 241, Mean Platelet Volume 5.8L, Neutrophils (%) (Auto) 63.0, Lymphocytes ( %) (Auto) 22.4, Monocytes (%) (Auto) 10.4H, Eosinophils (%) (Auto) 3.3H, Basophils (%) (Auto) 0.9, Sodium Level 139, Potassium Level 4.2, Chloride Level 103, Carbon Dioxide Level 28, Anion Gap 8, Blood Urea Nitrogen 25H, Creatinine 1.0, Estimat Glomerular Filtration Rate > 60, Glucose Level 256H, Calcium Level 9.0 Height (Feet): 5 Height (Inches): 4.00 Weight (Pounds): 271 Objective General Appearance: no apparent distress, alert EENT: PERRL/EOMI, normal ENT inspection Neck: non-tender, normal alignment Cardiovascular: normal rate, regular rhythm Respiratory/Chest: lungs clear, normal breath sounds Abdomen: non tender, soft Extremities: non-tender Edema: no edema noted Generalized Neurologic: alert, oriented x 3 Skin: warm/dry Steve Walker Dec 18, 2019 08:56
--- NOTE | 2019-12-18 09:00 | General Progress Note ---
Assessment/Plan Problem List: (1) Diabetes ICD Codes: E11.9 - Type 2 diabetes mellitus without complications SNOMED: 06776297 (2) HTN (hypertension) ICD Codes: I10 - Essential (primary) hypertension SNOMED: 41419126 (3) Malnutrition ICD Codes: E46 - Unspecified protein-calorie malnutrition SNOMED: 66752252 (4) Chest pain ICD Codes: R07.9 - Chest pain, unspecified SNOMED: 64355382 (5) Hyperglycemia ICD Codes: R73.9 - Hyperglycemia, unspecified SNOMED: 65529905 (6) Pain ICD Codes: R52 - Pain, unspecified SNOMED: 92380615 (7) Acute exacerbation of CHF (congestive heart failure) ICD Codes: I50.9 - Heart failure, unspecified SNOMED: 468807159, 35527620200624 (8) Hypothyroid ICD Codes: E03.9 - Hypothyroidism, unspecified SNOMED: 93300835 Status: stable, progressing Assessment/Plan: pt diet bp pain control dc if clear by cardio and neuro cbc bmp am Subjective Constitutional: Reports: weakness Allergies: Coded Allergies: No Known Allergies (Unverified , 12/08/19) All Systems: reviewed and negative except above Subjective sl anxious in bed c/o foot swelling Objective Last 24 Hour Vital Signs Date Time Temp Pulse Resp B/P (MAP) Pulse Ox O2 Delivery O2 Flow Rate FiO2 12/18/19 08:38 84 122/79 12/18/19 08:38 122/79 12/18/19 08:00 98.7 84 122/79 (93) 12/18/19 04:00 97.6 81 16 150/92 (111) 97 12/18/19 00:00 98.0 85 18 115/56 (75) 97 12/17/19 21:00 83 101/72 12/17/19 21:00 Room Air 12/17/19 20:00 98.2 83 17 101/72 (82) 96 12/17/19 15:51 98.7 86 16 122/72 (89) 95 12/17/19 11:04 98.7 85 16 151/90 (110) 95 Intake and Output 12/17/19 12/18/19 19:00 07:00 Intake Total 720 ml 360 ml Balance 720 ml 360 ml Intake Oral 720 ml 360 ml # Voids 2 2 Laboratory Tests 12/18/19 05:50: White Blood Count 8.4, Red Blood Count 3.76L, Hemoglobin 12.2L, Hematocrit 34.2L , Mean Corpuscular Volume 91, Mean Corpuscular Hemoglobin 32.5H, Mean Corpuscular Hemoglobin Concent 35.8, Red Cell Distribution Width 12.3, Platelet Count 241, Mean Platelet Volume 5.8L, Neutrophils (%) (Auto) 63.0, Lymphocytes ( %) (Auto) 22.4, Monocytes (%) (Auto) 10.4H, Eosinophils (%) (Auto) 3.3H, Basophils (%) (Auto) 0.9, Sodium Level 139, Potassium Level 4.2, Chloride Level 103, Carbon Dioxide Level 28, Anion Gap 8, Blood Urea Nitrogen 25H, Creatinine 1.0, Estimat Glomerular Filtration Rate > 60, Glucose Level 256H, Calcium Level 9.0 Height (Feet): 5 Height (Inches): 4.00 Weight (Pounds): 271 General Appearance: lethargic EENT: normal ENT inspection Neck: normal alignment Cardiovascular: normal peripheral pulses, normal rate, regular rhythm Respiratory/Chest: chest wall non-tender, lungs clear, normal breath sounds Abdomen: normal bowel sounds, non tender, soft Extremities: normal inspection Edema: 1+ Arm (L), 1+ Arm (R), 1+ Leg (L), 1+ Leg (R), 1+ Pedal (L), 1+ Pedal ( R), 1+ Generalized Neurologic: responsive, motor weakness Skin: normal pigmentation, warm/dry Fermín Griggs DO Dec 18, 2019 09:00
[2019-12-18] MEDS: BuPROPion SR 150mg tab ORAL SCH (09:06)
--- NOTE | 2019-12-18 09:22 | NUR ---
NURSE NOTES: C/O SWELLING BOTH LEGS AND HANDS. ON LASIX IV BUT STATES THINKS HE'S NOT GETTING ENOUGH. DR Angel HILLIARD NOTIFIED WITH NEW ORDER.
[2019-12-18 12:00] VITALS: BP 113/66
--- NOTE | 2019-12-18 13:00 | NUR ---
NURSE NOTES: C/O FEELING COLD AND CLAMMY. ACCUCHECK DONE 355. IN NO DISTRESS.
[2019-12-18 16:00] VITALS: BP 117/63
--- NOTE | 2019-12-18 19:00 | NUR ---
NURSE NOTES: ASLEEP. IN NO DISTRESS.
--- NOTE | 2019-12-18 19:46 | NUR ---
HAND-OFF: Report given to S MARCELINO RN.
--- NOTE | 2019-12-18 19:48 | NUR ---
NURSE NOTES: Received report from Teresa SYKES. Rounding is done. Patient is a/o x4 and able to known his needs. IV site is intact and patient. Both hand and leg is swelling. Breathing is even and unlabored at this time. No c/o pain or any distress at this time. Bed is on alarm, locked, and lowest position. Call light within reach. Will continue to monitor.
[2019-12-18 20:00] VITALS: BP 108/74
[2019-12-18] MEDS: Atorvastatin 80mg tab ORAL SCH (20:59)
[2019-12-19] VITALS: BP 110/71
[2019-12-19 04:00] VITALS: BP 118/69
[2019-12-19] MEDS: NovoLOG Insulin Flexpen SUBQ SCH ×7 (05:44→20:32)
[2019-12-19 06:43] LABS: BASOPHILS % (AUTO) 0.9 % (0.0-2.0); EOSINOPHILS % (AUTO) 3.6 % (0.0-3.0); HEMATOCRIT 35.7 % (42.0-52.0); HEMOGLOBIN 12.8 G/DL (14.2-18.0); LYMPHOCYTES % (AUTO) 21.1 % (20.0-45.0); MEAN CORPUSCULAR VOLUME 91 FL (80-99); MONOCYTES % (AUTO) 8.8 % (1.0-10.0); NEUTROPHILS % (AUTO) 65.6 % (45.0-75.0); PLATELET COUNT 261 K/UL (150-450); RED BLOOD COUNT 3.93 M/UL (4.70-6.10); RED CELL DISTRIBUTION WIDTH 12.4 % (11.6-14.8); WHITE BLOOD COUNT 8.7 K/UL (4.8-10.8)
[2019-12-19 07:00] LABS: ANION GAP 8 mmol/L (5-15); BLOOD UREA NITROGEN 23 mg/dL (7-18); CALCIUM 9.2 MG/DL (8.5-10.1); CARBON DIOXIDE 27 MMOL/L (21-32); CHLORIDE 103 MMOL/L (98-107); POTASSIUM 4.3 MMOL/L (3.5-5.1); SODIUM 138 MMOL/L (136-145)
--- NOTE | 2019-12-19 07:00 | Progress Note ---
DATE: 12/18/2019 SUBJECTIVE: The patient is the same. Continues to have anxiety. The patient has a lot of disorder, believes that he is still having serious symptoms and he is having generalized edema. MENTAL STATUS EXAMINATION: Alert and oriented times self, place, and situation. Mood is neutral. Affect is flat. Thought process is concrete. Thought content, no suicidal or homicidal ideation. ASSESSMENT: Stable. PLAN: 1. We will continue current medications. 2. Provide the patient with reality orientation and supportive therapy. Kiko Botello M.D. DR: NEIDA JOB#: [id number] CC: KOLBY
--- NOTE | 2019-12-19 07:16 | NUR ---
HAND-OFF: Report given to Teresa SYKES. Patient in stable condition.
--- NOTE | 2019-12-19 07:31 | NUR ---
NURSE NOTES: AWAKE/ALERT. C/O BACK PAIN. SCALE 8/10. GIVEN ROBAXIN 1 TAB PO. IN NO ACUTE DISTRESS.
[2019-12-19 08:00] VITALS: BP 122/61
[2019-12-19] MEDS: BuPROPion SR 150mg tab ORAL SCH (08:39)
[2019-12-19] MEDS: Aspirin EC 81mg tab ORAL SCH (08:39)
[2019-12-19] MEDS: Imdur 30mg tab ORAL SCH (08:39)
[2019-12-19] MEDS: Levemir Flexpen SUBQ SCH (08:48)
--- NOTE | 2019-12-19 09:02 | General Progress Note ---
Assessment/Plan Assessment/Plan: (1) Lumbar degenerative disk disease (2) Lumbar radiculopathy (3) Lumbar spondylosis (4) H/o polysubstance abuse Patient will be continued on Morphine as needed. D/w Dr. Bull and he concurred. Subjective Date patient seen: Dec 19, 2019 Time patient seen: 08:30 - am Allergies: Coded Allergies: No Known Allergies (Unverified , 12/08/19) Subjective Constitutional: Reports: no symptoms HEENT: Reports: no symptoms Cardiovascular: Reports: no symptoms Respiratory: Reports: no symptoms Gastrointestinal/Abdominal: Reports: no symptoms Genitourinary: Reports: no symptoms Neurologic/Psychiatric: Reports: no symptoms Endocrine: Reports: no symptoms Hematologic/Lymphatic: Reports: no symptoms Subjective Patient is in bed and states that the pain has been stable on the Morphine when needed. Has no new complaints at this time. Objective Last 24 Hour Vital Signs Date Time Temp Pulse Resp B/P (MAP) Pulse Ox O2 Delivery O2 Flow Rate FiO2 12/19/19 08:40 63 122/61 12/19/19 08:39 122/61 12/19/19 04:00 97.5 83 18 118/69 (85) 96 12/19/19 00:00 98.1 81 20 110/71 (84) 100 12/18/19 21:00 Room Air 12/18/19 21:00 86 108/74 12/18/19 20:00 98.2 86 21 108/74 (85) 100 12/18/19 16:00 98.2 84 21 117/63 (81) 96 12/18/19 12:00 99.1 88 20 113/66 (82) Intake and Output 12/18/19 12/19/19 19:00 07:00 Intake Total 770 ml 1600 ml Output Total 1450 ml 600 ml Balance -680 ml 1000 ml Intake Oral 770 ml 1600 ml Output Urine Total 1450 ml 600 ml # Voids 3 1 Laboratory Tests 12/19/19 05:45: White Blood Count 8.7, Red Blood Count 3.93L, Hemoglobin 12.8L, Hematocrit 35.7L , Mean Corpuscular Volume 91, Mean Corpuscular Hemoglobin 32.7H, Mean Corpuscular Hemoglobin Concent 36.0, Red Cell Distribution Width 12.4, Platelet Count 261, Mean Platelet Volume 5.6L, Neutrophils (%) (Auto) 65.6, Lymphocytes ( %) (Auto) 21.1, Monocytes (%) (Auto) 8.8, Eosinophils (%) (Auto) 3.6H, Basophils (%) (Auto) 0.9, Sodium Level 138, Potassium Level 4.3, Chloride Level 103, Carbon Dioxide Level 27, Anion Gap 8, Blood Urea Nitrogen 23H, Creatinine 1.0, Estimat Glomerular Filtration Rate > 60, Glucose Level 252H, Calcium Level 9.2 Height (Feet): 5 Height (Inches): 4.00 Weight (Pounds): 271 Objective General Appearance: no apparent distress, alert EENT: PERRL/EOMI, normal ENT inspection Neck: non-tender, normal alignment Cardiovascular: normal rate, regular rhythm Respiratory/Chest: lungs clear, normal breath sounds Abdomen: non tender, soft Extremities: non-tender Edema: no edema noted Generalized Neurologic: alert, oriented x 3 Skin: warm/dry Steve Walker Dec 19, 2019 09:02
[2019-12-19 12:00] VITALS: BP 123/69
--- NOTE | 2019-12-19 13:54 | General Progress Note ---
Assessment/Plan Problem List: (1) Diabetes ICD Codes: E11.9 - Type 2 diabetes mellitus without complications SNOMED: 23954314 (2) HTN (hypertension) ICD Codes: I10 - Essential (primary) hypertension SNOMED: 94942766 (3) Malnutrition ICD Codes: E46 - Unspecified protein-calorie malnutrition SNOMED: 73073343 (4) Chest pain ICD Codes: R07.9 - Chest pain, unspecified SNOMED: 99539511 (5) Hyperglycemia ICD Codes: R73.9 - Hyperglycemia, unspecified SNOMED: 41767554 (6) Pain ICD Codes: R52 - Pain, unspecified SNOMED: 99208980 (7) Acute exacerbation of CHF (congestive heart failure) ICD Codes: I50.9 - Heart failure, unspecified SNOMED: 258819795, 07475085644264 (8) Hypothyroid ICD Codes: E03.9 - Hypothyroidism, unspecified SNOMED: 01495431 Status: stable, progressing Assessment/Plan: pt diet bp pain control dc if clear by cardio and neuro cbc bmp am Subjective Constitutional: Reports: weakness Allergies: Coded Allergies: No Known Allergies (Unverified , 12/08/19) All Systems: reviewed and negative except above Subjective sl anxious in bed c/o foot swelling Objective Last 24 Hour Vital Signs Date Time Temp Pulse Resp B/P (MAP) Pulse Ox O2 Delivery O2 Flow Rate FiO2 12/19/19 12:00 97.2 71 18 123/69 (87) 97 12/19/19 09:00 Room Air 12/19/19 08:40 63 122/61 12/19/19 08:39 122/61 12/19/19 08:00 97.8 63 18 122/61 (81) 100 12/19/19 04:00 97.5 83 18 118/69 (85) 96 12/19/19 00:00 98.1 81 20 110/71 (84) 100 12/18/19 21:00 Room Air 12/18/19 21:00 86 108/74 12/18/19 20:00 98.2 86 21 108/74 (85) 100 12/18/19 16:00 98.2 84 21 117/63 (81) 96 Intake and Output 12/18/19 12/19/19 19:00 07:00 Intake Total 770 ml 1600 ml Output Total 1450 ml 600 ml Balance -680 ml 1000 ml Intake Oral 770 ml 1600 ml Output Urine Total 1450 ml 600 ml # Voids 3 1 Laboratory Tests 12/19/19 05:45: White Blood Count 8.7, Red Blood Count 3.93L, Hemoglobin 12.8L, Hematocrit 35.7L , Mean Corpuscular Volume 91, Mean Corpuscular Hemoglobin 32.7H, Mean Corpuscular Hemoglobin Concent 36.0, Red Cell Distribution Width 12.4, Platelet Count 261, Mean Platelet Volume 5.6L, Neutrophils (%) (Auto) 65.6, Lymphocytes ( %) (Auto) 21.1, Monocytes (%) (Auto) 8.8, Eosinophils (%) (Auto) 3.6H, Basophils (%) (Auto) 0.9, Sodium Level 138, Potassium Level 4.3, Chloride Level 103, Carbon Dioxide Level 27, Anion Gap 8, Blood Urea Nitrogen 23H, Creatinine 1.0, Estimat Glomerular Filtration Rate > 60, Glucose Level 252H, Calcium Level 9.2 Height (Feet): 5 Height (Inches): 4.00 Weight (Pounds): 271 General Appearance: alert EENT: normal ENT inspection Neck: normal alignment Cardiovascular: normal peripheral pulses, normal rate, regular rhythm Respiratory/Chest: chest wall non-tender, lungs clear, normal breath sounds Abdomen: normal bowel sounds, non tender, soft Extremities: normal inspection Edema: no edema noted Arm (L), no edema noted Arm (R), no edema noted Leg (L), no edema noted Leg (R), no edema noted Pedal (L), no edema noted Pedal (R), no edema noted Generalized Neurologic: responsive, motor weakness Skin: normal pigmentation, warm/dry Fermín Griggs DO Dec 19, 2019 13:54
--- NOTE | 2019-12-19 14:41 | NUR ---
[employer] NOTES RECEIVED A CALL FROM PT'S MOTHER DAMIÁN, VERBALIZED CONCERNS ABOUT PATIENT FOOT SWOLLEN. EXPLAIN TO THE PT AND DAMIÁN PT IS CURRENTLY RECEIVING LASIX IV,ENCOURAGED PT TO ELEVATE LOWER EXTREMITIES TO ASSIST WITH VENOUS RETURN. PT VERBALIZED UNDERSTANDING OF TEACHING. [facility] TO BE AVAILABLE FOR ONGOING ISSUES AND CONCERNS.
[2019-12-19 16:00] VITALS: BP 120/73
--- NOTE | 2019-12-19 18:57 | NUR ---
NURSE NOTES: ASLEEP. IN NO APPARENT DISTRESS.
--- NOTE | 2019-12-19 19:16 | NUR ---
HAND-OFF: Report given to S MARCELINO RN.
[2019-12-19 20:00] VITALS: BP 127/72
[2019-12-19] MEDS: Atorvastatin 80mg tab ORAL SCH (20:34)
--- NOTE | 2019-12-19 22:45 | Cardiology Progress Note ---
Assessment/Plan Assessment/Plan 1. Chest pain, chronic, recurrent. 2. Coronary artery disease, status post coronary artery bypass graft and multiple stents. 3. Diabetes, poor control. 4. Hypertension. 5. Hyperlipidemia. 6. 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 as out encouraged compalience with med Subjective Cardiovascular: Denies: chest pain - or min Respiratory: Reports: shortness of breath Gastrointestinal/Abdominal: Denies: abdomen distended Genitourinary: Denies: burning Subjective swelloing worse in arms adn leg and hand , not urinating Objective Last 24 Hour Vital Signs Date Time Temp Pulse Resp B/P (MAP) Pulse Ox O2 Delivery O2 Flow Rate FiO2 12/19/19 21:00 Room Air 12/19/19 20:34 83 127/72 12/19/19 20:00 98.0 83 19 127/72 (90) 95 12/19/19 16:00 98.6 82 19 120/73 (89) 93 12/19/19 12:00 97.2 71 18 123/69 (87) 97 12/19/19 09:00 Room Air 12/19/19 08:40 63 122/61 12/19/19 08:39 122/61 12/19/19 08:00 97.8 63 18 122/61 (81) 100 12/19/19 04:00 97.5 83 18 118/69 (85) 96 12/19/19 00:00 98.1 81 20 110/71 (84) 100 General Appearance: no apparent distress, alert Neck: supple Cardiovascular: normal rate Respiratory/Chest: lungs clear Abdomen: normal bowel sounds, non tender, soft Extremities: no swelling Intake and Output 12/18/19 12/19/19 19:00 07:00 Intake Total 770 ml 1600 ml Output Total 1450 ml 600 ml Balance -680 ml 1000 ml Intake Oral 770 ml 1600 ml Output Urine Total 1450 ml 600 ml # Voids 3 1 Laboratory Tests Test 12/19/19 05:45 White Blood Count 8.7 K/UL (4.8-10.8) Red Blood Count 3.93 M/UL (4.70-6.10) L Hemoglobin 12.8 G/DL (14.2-18.0) L Hematocrit 35.7 % (42.0-52.0) L Mean Corpuscular Volume 91 FL (80-99) Mean Corpuscular Hemoglobin 32.7 PG (27.0-31.0) H Mean Corpuscular Hemoglobin Concent 36.0 G/DL (32.0-36.0) Red Cell Distribution Width 12.4 % (11.6-14.8) Platelet Count 261 K/UL (150-450) Mean Platelet Volume 5.6 FL (6.5-10.1) L Neutrophils (%) (Auto) 65.6 % (45.0-75.0) Lymphocytes (%) (Auto) 21.1 % (20.0-45.0) Monocytes (%) (Auto) 8.8 % (1.0-10.0) Eosinophils (%) (Auto) 3.6 % (0.0-3.0) H Basophils (%) (Auto) 0.9 % (0.0-2.0) Sodium Level 138 MMOL/L (136-145) Potassium Level 4.3 MMOL/L (3.5-5.1) Chloride Level 103 MMOL/L (98-107) Carbon Dioxide Level 27 MMOL/L (21-32) Anion Gap 8 mmol/L (5-15) Blood Urea Nitrogen 23 mg/dL (7-18) H Creatinine 1.0 MG/DL (0.55-1.30) Estimat Glomerular Filtration Rate > 60 mL/min (>60) Glucose Level 252 MG/DL (74-106) H Calcium Level 9.2 MG/DL (8.5-10.1) Sarkis Guthrie MD Dec 19, 2019 22:45
[2019-12-20] VITALS (14 sets, daily range): BP systolic 88–127; BP diastolic 52–79
[2019-12-20] MEDS: NovoLOG Insulin Flexpen SUBQ SCH ×7 (05:38→21:00)
--- NOTE | 2019-12-20 07:08 | General Progress Note ---
Assessment/Plan Problem List: (1) Hypothyroid ICD Codes: E03.9 - Hypothyroidism, unspecified SNOMED: 46552903 (2) Acute exacerbation of CHF (congestive heart failure) ICD Codes: I50.9 - Heart failure, unspecified SNOMED: 381555326, 01669634478691 (3) Hyperglycemia ICD Codes: R73.9 - Hyperglycemia, unspecified SNOMED: 36947399 (4) Chest pain ICD Codes: R07.9 - Chest pain, unspecified SNOMED: 26723399 Status: stable, progressing Assessment/Plan: increase Levemir to 55 units qam increase Novolog to 20 units ac tid + sliding scale ac / hs continue Starlix 120 mg ac tid continue Januvia 100 mg daily continue Levothyroxine 50 mcg daily Subjective Allergies: Coded Allergies: No Known Allergies (Unverified , 12/08/19) All Systems: reviewed and negative except above Subjective events noted glucose values are elevated despite high dose insulin regimen Item Value Date Time Bedside Blood Glucose 228 mg/dl H 12/20/19 0630 Bedside Blood Glucose 189 mg/dl H 12/19/19 2100 Bedside Blood Glucose 213 mg/dl H 12/19/19 1648 Bedside Blood Glucose 288 mg/dl H 12/19/19 1136 Bedside Blood Glucose 252 mg/dl H 12/19/19 0848 Bedside Blood Glucose 252 mg/dl H 12/19/19 0630 Objective Last 24 Hour Vital Signs Date Time Temp Pulse Resp B/P (MAP) Pulse Ox O2 Delivery O2 Flow Rate FiO2 12/20/19 04:00 98.0 75 18 118/67 (84) 94 12/20/19 00:00 98.1 77 19 97/52 (67) 94 12/19/19 21:00 Room Air 12/19/19 20:34 83 127/72 12/19/19 20:00 98.0 83 19 127/72 (90) 95 12/19/19 16:00 98.6 82 19 120/73 (89) 93 12/19/19 12:00 97.2 71 18 123/69 (87) 97 12/19/19 09:00 Room Air 12/19/19 08:40 63 122/61 12/19/19 08:39 122/61 12/19/19 08:00 97.8 63 18 122/61 (81) 100 Intake and Output 12/19/19 12/20/19 19:00 07:00 Intake Total 1300 ml 600 ml Output Total 1100 ml Balance 200 ml 600 ml Intake Oral 1300 ml 600 ml Output Urine Total 1100 ml # Voids 2 Laboratory Tests 12/20/19 05:40: White Blood Count [Pending], Red Blood Count [Pending], Hemoglobin [Pending], Hematocrit [Pending], Mean Corpuscular Volume [Pending], Mean Corpuscular Hemoglobin [Pending], Mean Corpuscular Hemoglobin Concent [Pending], Red Cell Distribution Width [Pending], Platelet Count [Pending], Mean Platelet Volume [ Pending], Neutrophils (%) (Auto) [Pending], Lymphocytes (%) (Auto) [Pending], Monocytes (%) (Auto) [Pending], Eosinophils (%) (Auto) [Pending], Basophils (%) (Auto) [Pending], Sodium Level [Pending], Potassium Level [Pending], Chloride Level [Pending], Carbon Dioxide Level [Pending], Blood Urea Nitrogen [Pending], Creatinine [Pending], Estimat Glomerular Filtration Rate [Pending], Glucose Level [Pending], Calcium Level [Pending] Height (Feet): 5 Height (Inches): 4.00 Weight (Pounds): 271 General Appearance: no apparent distress Neck: normal alignment Cardiovascular: normal rate Respiratory/Chest: lungs clear Abdomen: normal bowel sounds Pelvis: normal external exam Objective Current Medications Medications (Trade) Dose Ordered Sig/Rodney Route PRN Reason Start Time Stop Time Status Last Admin Dose Admin Acetaminophen (Tylenol) 650 mg Q4H PRN ORAL T>100.5 12/13/19 09:45 01/07/20 06:14 Aspirin (Ecotrin) 81 mg DAILY ORAL 12/13/19 09:00 01/08/20 08:59 12/19/19 08:39 Atorvastatin Calcium (Lipitor) 80 mg BEDTIME ORAL 12/13/19 21:00 01/07/20 20:59 12/19/19 20:34 Bupropion HCl (Wellbutrin SR) 150 mg DAILY ORAL 12/13/19 09:00 01/10/20 08:59 12/19/19 08:39 Clopidogrel Bisulfate (Plavix) 75 mg DAILY ORAL 12/13/19 09:00 01/08/20 08:59 12/19/19 08:40 Dextrose (Dextrose 50%) 25 ml Q30M PRN IV Hypoglycemia 12/13/19 06:15 01/08/20 06:14 Dextrose (Dextrose 50%) 50 ml Q30M PRN IV Hypoglycemia 12/13/19 06:15 01/08/20 06:14 Furosemide (Lasix) 40 mg BID IV 12/20/19 09:00 01/19/20 08:59 Gabapentin (Neurontin) 300 mg BEDTIME ORAL 12/13/19 21:00 01/07/20 20:59 12/19/19 20:34 Gabapentin (Neurontin) 300 mg THREE TIMES A DAY ORAL 12/13/19 09:00 01/08/20 09:59 12/19/19 17:24 Insulin Aspart (NovoLOG) BEFORE MEALS AND HS SUBQ 12/13/19 06:30 01/07/20 16:29 12/20/19 05:39 Insulin Aspart (NovoLOG) 18 units NOVOTIAC SUBQ 12/18/19 11:50 01/08/20 06:29 12/20/19 05:38 Insulin Detemir (Levemir) 50 units DAILY SUBQ 12/18/19 09:00 01/08/20 08:59 12/19/19 08:48 Isosorbide Mononitrate (Imdur) 60 mg DAILY ORAL 12/13/19 09:00 01/11/20 08:59 12/19/19 08:39 Levothyroxine Sodium (Synthroid) 50 mcg DAILY@0630 ORAL 12/13/19 06:30 01/08/20 06:29 12/20/19 05:37 Lidocaine (Lidoderm 5% PATCH) 1 patch DAILY TDERMAL 12/13/19 09:00 01/08/20 09:59 12/19/19 08:40 Methocarbamol (Robaxin) 500 mg Q8H PRN ORAL muscle spasm 12/13/19 06:15 01/08/20 06:14 12/19/19 07:30 Metolazone (Zaroxolyn) 2.5 mg DAILY@0830 ORAL 12/20/19 08:30 01/19/20 08:29 Metoprolol Tartrate (Lopressor) 25 mg EVERY 12 HOURS ORAL 12/13/19 09:00 01/07/20 20:59 12/19/19 20:34 Mirtazapine (Remeron) 7.5 mg BEDTIME ORAL 12/13/19 21:00 01/07/20 20:59 12/17/19 21:51 Morphine HCl (Morphine IR) 7.5 mg Q4H PRN ORAL For Pain 12/13/19 10:00 12/20/19 09:59 12/13/19 16:06 Nateglinide (Starlix) 120 mg THREE TIMES A DAY ORAL 12/13/19 09:00 01/05/20 12:59 12/19/19 17:24 Nitroglycerin (Ntg) 0.4 mg Q5M PRN SL Prn Chest Pain 12/13/19 06:05 01/09/20 17:59 Pantoprazole (Protonix) 40 mg DAILY ORAL 12/13/19 09:00 01/08/20 08:59 12/19/19 08:40 Sitagliptin Phosphate (Januvia) 100 mg ACBREAKFAST ORAL 12/13/19 06:30 01/08/20 06:29 12/20/19 05:37 Shon Maldonado MD Dec 20, 2019 07:08
--- NOTE | 2019-12-20 07:13 | NUR ---
HAND-OFF: Report given to Teresa SYKES. Patient in stable condition.
[2019-12-20 07:18] LABS: EOSINOPHILS % (AUTO) 3.4 % (0.0-3.0); HEMATOCRIT 35.4 % (42.0-52.0); HEMOGLOBIN 12.6 G/DL (14.2-18.0); LYMPHOCYTES % (AUTO) 19.9 % (20.0-45.0); MEAN CORPUSCULAR VOLUME 91 FL (80-99); MONOCYTES % (AUTO) 8.7 % (1.0-10.0); PLATELET COUNT 253 K/UL (150-450); RED BLOOD COUNT 3.89 M/UL (4.70-6.10); RED CELL DISTRIBUTION WIDTH 12.4 % (11.6-14.8); WHITE BLOOD COUNT 9.2 K/UL (4.8-10.8)
--- NOTE | 2019-12-20 07:21 | NUR ---
NURSE NOTES: AWAKE/ALERT.UP IN CHAIR. PAIN SCALE 8/10.BLE SWOLLEN. IN NO ACUTE DISTRESS.
[2019-12-20 07:41] LABS: ANION GAP 13 mmol/L (5-15); BLOOD UREA NITROGEN 28 mg/dL (7-18); CALCIUM 9.1 MG/DL (8.5-10.1); CARBON DIOXIDE 23 MMOL/L (21-32); CHLORIDE 103 MMOL/L (98-107); POTASSIUM 4.3 MMOL/L (3.5-5.1); SODIUM 139 MMOL/L (136-145)
[2019-12-20] MEDS: Imdur 30mg tab ORAL SCH (08:32)
[2019-12-20] MEDS: metOLazone 2.5 MG TAB ORAL SCH (08:33)
[2019-12-20] MEDS: BuPROPion SR 150mg tab ORAL SCH (08:33)
--- NOTE | 2019-12-20 09:00 | General Progress Note ---
Assessment/Plan Assessment/Plan: (1) Lumbar degenerative disk disease (2) Lumbar radiculopathy (3) Lumbar spondylosis (4) H/o polysubstance abuse Patient will be continued on Morphine as needed. D/w Dr. Bull and he concurred. Subjective Date patient seen: Dec 20, 2019 Time patient seen: 08:15 - am Allergies: Coded Allergies: No Known Allergies (Unverified , 12/08/19) Subjective Constitutional: Reports: no symptoms HEENT: Reports: no symptoms Cardiovascular: Reports: no symptoms Respiratory: Reports: no symptoms Gastrointestinal/Abdominal: Reports: no symptoms Genitourinary: Reports: no symptoms Neurologic/Psychiatric: Reports: no symptoms Endocrine: Reports: no symptoms Hematologic/Lymphatic: Reports: no symptoms Subjective Patient reports that the pain has been at a moderate level. No new complaints at this time. Objective Last 24 Hour Vital Signs Date Time Temp Pulse Resp B/P (MAP) Pulse Ox O2 Delivery O2 Flow Rate FiO2 12/20/19 08:33 75 127/79 12/20/19 08:32 127/79 12/20/19 08:00 98.6 75 18 127/79 (95) 94 12/20/19 04:00 98.0 75 18 118/67 (84) 94 12/20/19 00:00 98.1 77 19 97/52 (67) 94 12/19/19 21:00 Room Air 12/19/19 20:34 83 127/72 12/19/19 20:00 98.0 83 19 127/72 (90) 95 12/19/19 16:00 98.6 82 19 120/73 (89) 93 12/19/19 12:00 97.2 71 18 123/69 (87) 97 12/19/19 09:00 Room Air Intake and Output 12/19/19 12/20/19 19:00 07:00 Intake Total 1300 ml 600 ml Output Total 1100 ml Balance 200 ml 600 ml Intake Oral 1300 ml 600 ml Output Urine Total 1100 ml # Voids 2 1 Laboratory Tests 12/20/19 05:40: White Blood Count 9.2, Red Blood Count 3.89L, Hemoglobin 12.6L, Hematocrit 35.4L , Mean Corpuscular Volume 91, Mean Corpuscular Hemoglobin 32.5H, Mean Corpuscular Hemoglobin Concent 35.7, Red Cell Distribution Width 12.4, Platelet Count 253, Mean Platelet Volume 5.5L, Neutrophils (%) (Auto) 67.0, Lymphocytes ( %) (Auto) 19.9L, Monocytes (%) (Auto) 8.7, Eosinophils (%) (Auto) 3.4H, Basophils (%) (Auto) 1.0, Sodium Level 139, Potassium Level 4.3, Chloride Level 103, Carbon Dioxide Level 23, Anion Gap 13, Blood Urea Nitrogen 28H, Creatinine 1.0, Estimat Glomerular Filtration Rate > 60, Glucose Level 255H, Calcium Level 9.1 Height (Feet): 5 Height (Inches): 4.00 Weight (Pounds): 271 Objective General Appearance: no apparent distress, alert EENT: PERRL/EOMI, normal ENT inspection Neck: non-tender, normal alignment Cardiovascular: normal rate, regular rhythm Respiratory/Chest: lungs clear, normal breath sounds Abdomen: non tender, soft Extremities: non-tender Edema: no edema noted Generalized Neurologic: alert, oriented x 3 Skin: warm/dry Steve Walker Dec 20, 2019 09:00
[2019-12-20] MEDS: Aspirin EC 81mg tab ORAL SCH (09:07)
[2019-12-20] MEDS: Levemir Flexpen SUBQ SCH (09:09)
--- NOTE | 2019-12-20 09:34 | General Progress Note ---
Assessment/Plan Problem List: (1) Diabetes ICD Codes: E11.9 - Type 2 diabetes mellitus without complications SNOMED: 12336616 (2) HTN (hypertension) ICD Codes: I10 - Essential (primary) hypertension SNOMED: 75677176 (3) Malnutrition ICD Codes: E46 - Unspecified protein-calorie malnutrition SNOMED: 47645394 (4) Chest pain ICD Codes: R07.9 - Chest pain, unspecified SNOMED: 50424095 (5) Hyperglycemia ICD Codes: R73.9 - Hyperglycemia, unspecified SNOMED: 55206053 (6) Pain ICD Codes: R52 - Pain, unspecified SNOMED: 02132944 (7) Acute exacerbation of CHF (congestive heart failure) ICD Codes: I50.9 - Heart failure, unspecified SNOMED: 364939143, 59934789911089 (8) Hypothyroid ICD Codes: E03.9 - Hypothyroidism, unspecified SNOMED: 46218125 Status: stable, progressing Assessment/Plan: pt diet bp pain control dc if clear by cardio and neuro cbc bmp am Subjective Constitutional: Reports: weakness Allergies: Coded Allergies: No Known Allergies (Unverified , 12/08/19) All Systems: reviewed and negative except above Subjective sl anxious in bed c/o foot swelling Objective Last 24 Hour Vital Signs Date Time Temp Pulse Resp B/P (MAP) Pulse Ox O2 Delivery O2 Flow Rate FiO2 12/20/19 09:26 Room Air 12/20/19 08:33 75 127/79 12/20/19 08:32 127/79 12/20/19 08:00 98.6 75 18 127/79 (95) 94 12/20/19 04:00 98.0 75 18 118/67 (84) 94 12/20/19 00:00 98.1 77 19 97/52 (67) 94 12/19/19 21:00 Room Air 12/19/19 20:34 83 127/72 12/19/19 20:00 98.0 83 19 127/72 (90) 95 12/19/19 16:00 98.6 82 19 120/73 (89) 93 12/19/19 12:00 97.2 71 18 123/69 (87) 97 Intake and Output 12/19/19 12/20/19 19:00 07:00 Intake Total 1300 ml 600 ml Output Total 1100 ml Balance 200 ml 600 ml Intake Oral 1300 ml 600 ml Output Urine Total 1100 ml # Voids 2 1 Laboratory Tests 12/20/19 05:40: White Blood Count 9.2, Red Blood Count 3.89L, Hemoglobin 12.6L, Hematocrit 35.4L , Mean Corpuscular Volume 91, Mean Corpuscular Hemoglobin 32.5H, Mean Corpuscular Hemoglobin Concent 35.7, Red Cell Distribution Width 12.4, Platelet Count 253, Mean Platelet Volume 5.5L, Neutrophils (%) (Auto) 67.0, Lymphocytes ( %) (Auto) 19.9L, Monocytes (%) (Auto) 8.7, Eosinophils (%) (Auto) 3.4H, Basophils (%) (Auto) 1.0, Sodium Level 139, Potassium Level 4.3, Chloride Level 103, Carbon Dioxide Level 23, Anion Gap 13, Blood Urea Nitrogen 28H, Creatinine 1.0, Estimat Glomerular Filtration Rate > 60, Glucose Level 255H, Calcium Level 9.1 Height (Feet): 5 Height (Inches): 4.00 Weight (Pounds): 271 General Appearance: alert EENT: normal ENT inspection Neck: normal alignment Cardiovascular: normal peripheral pulses, normal rate, regular rhythm Respiratory/Chest: chest wall non-tender, lungs clear, normal breath sounds Abdomen: normal bowel sounds, non tender, soft Extremities: normal inspection Edema: 1+ Arm (L), 1+ Arm (R), 1+ Leg (L), 1+ Leg (R), 1+ Pedal (L), 1+ Pedal ( R), 1+ Generalized Edema: trace edema Neurologic: responsive, motor weakness Skin: normal pigmentation, warm/dry Fermín Griggs DO Dec 20, 2019 09:34
--- NOTE | 2019-12-20 10:17 | NUR ---
RD ASSESSMENT & RECOMMENDATIONS SEE CARE ACTIVITY FOR COMPLETE ASSESSMENT DAILY ESTIMATED NEEDS: Needs based on DM, obesity, CHF/ 70kg abw 22-28 kcals/kg 5500-6903 total kcals 1-1.5 g protein/kg 70-105 g total protein 20-22 mL/kg 1351-8031 total fluid mLs NUTRITION DIAGNOSIS: Altered nutrition related lab values R/T diabetes, altered lipid metabolism as evidenced by elev BGs (421 253), POC glu (290 267 350 356 345), A1C of 10.2, elev triglyceride (290). CURRENT DIET: CCHO LOW, CARDIAC, DOUBLE PROTEIN PORTIONS PO DIET RECOMMENDATIONS: CCHO LOW, CARDIAC + double protein portions ADDITIONAL RECOMMENDATIONS: * DM diet ed provided on 12/09 * Monitor BGs closely, monitor adherence to diet * Monitor lytes w/ Lasix, replete as needed
--- NOTE | 2019-12-20 15:30 | Progress Note ---
DATE: 12/20/2019 SUBJECTIVE: The patient is sitting in a chair in no acute distress. Complained of anxiety, however, he does not appear to be anxious. Compliant with medication. MENTAL STATUS EXAMINATION: The patient is alert and oriented times to self, place, and situation. Mood is neutral. Affect is flat. Thought process is concrete. Thought content, no suicidal or homicidal ideation. ASSESSMENT: Stable. PLAN: 1. We will continue Wellbutrin. 2. We will continue current medications. Kiko Botello M.D. DR: SONYA JOB#: [id number] CC:
[2019-12-20] MEDS: Nitroglycerin Subl 0.4mg tab SL PRN ×3 (16:07→16:36)
--- NOTE | 2019-12-20 16:07 | NUR ---
NURSE NOTES: [place] [address],P 77 NTG 0.4MG GIVEN SUBLINGUAL. BP RECHECKED AFTER FIRST DOSE BP 88/56,P77. O2 2L N/C. STILL WITH NO RELIEF. GIVEN NTG 0.4MG GIVEN X3 DOSES. BP MONITORED . PT STATES STILL WITH CHEST PAINS. DR HILLIARD CALLED LEFT MESSAGE TO RETURN CALL
--- NOTE | 2019-12-20 16:12 | NUR ---
A R COLLECTIONS REP: REVIEW 12/20/19 SI: CHF EXACERBATION. HYPERGLYCEMIA. CHEST PAIN 97.8 78 20 112/53 94% ON RA H/H 12.6/35.4 BUN 28 BG 255 IS: IV LASIX BID IMDUR PO QD PLAVIX PO QD GABAPENTIN PO TID LOPRESSOR PO BID PROTONIX PO QD ASPIRIN PO QD LIPITOR PO QHS WELLBUTRIN SR PO QD NOVOLOG SQ AC&HS + SS STARLIX PO TID LEVEMIR SQ QD JANUVIA PO AC :TRANSFER 3E MED SURG UNIT PLAN: PATIENT STILL COMPLAINING OF SWELLING TO LEGS PATIENT UP IN CHAIR APPEAL STILL PENDING
--- NOTE | 2019-12-20 18:15 | NUR ---
CHARGE NURSE NOTES: EKG: NSR reading relayed to Dr Guthrie. He will see the pt later.
--- NOTE | 2019-12-20 18:47 | NUR ---
NURSE NOTES: heplock leaking and infiltrated and discontinued. tried to restart twice but no luck. will try again later.
--- NOTE | 2019-12-20 19:00 | NUR ---
NURSE NOTES: RESTING IN BED. IN NO DISTRESS.
--- NOTE | 2019-12-20 19:35 | NUR ---
HAND-OFF: Report given to A FLOYD SYKES.
[2019-12-20] MEDS: Atorvastatin 80mg tab ORAL SCH (21:43)
[2019-12-21] VITALS: BP 99/54
--- NOTE | 2019-12-21 01:37 | NUR ---
nurse's notes: patient has confided with this RN that after he gets [facility], he will eventually check himself out of the snf before the end of this month so he could use his monthly check to help out his mom financially. he also said that it does not matter to him if he would be homeless again. advised patient against doing this but is adamant to do everything for his mom. told him this rn will request a public health social worker to come and see him. will endorse to day shift.
[2019-12-21 03:45] VITALS: BP 103/67
[2019-12-21 06:04] LABS: HEMATOCRIT 34.3 % (42.0-52.0); HEMOGLOBIN 12.2 G/DL (14.2-18.0); LYMPHOCYTES % (AUTO) 22.1 % (20.0-45.0); MEAN CORPUSCULAR VOLUME 92 FL (80-99); MONOCYTES % (AUTO) 9.2 % (1.0-10.0); NEUTROPHILS % (AUTO) 64.7 % (45.0-75.0); PLATELET COUNT 264 K/UL (150-450); RED BLOOD COUNT 3.74 M/UL (4.70-6.10); RED CELL DISTRIBUTION WIDTH 12.4 % (11.6-14.8); WHITE BLOOD COUNT 9.8 K/UL (4.8-10.8)
[2019-12-21] MEDS: NovoLOG Insulin Flexpen SUBQ SCH ×7 (06:28→20:48)
[2019-12-21 06:35] LABS: ANION GAP 11 mmol/L (5-15); BLOOD UREA NITROGEN 33 mg/dL (7-18); CARBON DIOXIDE 24 MMOL/L (21-32); CHLORIDE 102 MMOL/L (98-107); CREATININE 1.3 MG/DL (0.55-1.30); POTASSIUM 4.3 MMOL/L (3.5-5.1); SODIUM 137 MMOL/L (136-145)
[2019-12-21 08:00] VITALS: BP 107/66
--- NOTE | 2019-12-21 08:10 | NUR ---
NURSE NOTES received pt from ONEL Kline, pt was resting comfortably, no chest pain or acute distress. call light w/in reach.
[2019-12-21] MEDS: metOLazone 2.5 MG TAB ORAL SCH (08:34)
[2019-12-21] MEDS: Imdur 30mg tab ORAL SCH ×2 (08:35→09:00)
[2019-12-21] MEDS: Aspirin EC 81mg tab ORAL SCH (08:35)
[2019-12-21] MEDS: BuPROPion SR 150mg tab ORAL SCH (08:36)
[2019-12-21] MEDS: Levemir Flexpen SUBQ SCH (08:40)
--- NOTE | 2019-12-21 10:01 | General Progress Note ---
Assessment/Plan Problem List: (1) Diabetes ICD Codes: E11.9 - Type 2 diabetes mellitus without complications SNOMED: 71123491 (2) HTN (hypertension) ICD Codes: I10 - Essential (primary) hypertension SNOMED: 72977416 (3) Malnutrition ICD Codes: E46 - Unspecified protein-calorie malnutrition SNOMED: 15165726 (4) Chest pain ICD Codes: R07.9 - Chest pain, unspecified SNOMED: 10200516 (5) Hyperglycemia ICD Codes: R73.9 - Hyperglycemia, unspecified SNOMED: 12196755 (6) Pain ICD Codes: R52 - Pain, unspecified SNOMED: 71798571 (7) Acute exacerbation of CHF (congestive heart failure) ICD Codes: I50.9 - Heart failure, unspecified SNOMED: 799657794, 84616866048397 (8) Hypothyroid ICD Codes: E03.9 - Hypothyroidism, unspecified SNOMED: 37419836 Status: stable, progressing Assessment/Plan: pt diet bp pain control dc if clear by cardio and neuro cbc bmp am Subjective Constitutional: Reports: weakness Allergies: Coded Allergies: No Known Allergies (Unverified , 12/08/19) All Systems: reviewed and negative except above Subjective sl anxious in bed c/o foot swelling Objective Last 24 Hour Vital Signs Date Time Temp Pulse Resp B/P (MAP) Pulse Ox O2 Delivery O2 Flow Rate FiO2 12/21/19 09:00 107/66 12/21/19 08:36 93 107/66 12/21/19 08:18 Room Air 12/21/19 03:45 97.5 81 18 103/67 (79) 99 81 12/21/19 00:00 97.9 88 18 99/54 (69) 97 88 12/20/19 21:45 88 102/56 12/20/19 21:00 Room Air 12/20/19 20:00 97.8 88 17 102/56 (71) 99 88 12/20/19 16:47 79 113/61 (78) 95 12/20/19 16:42 76 115/60 (78) 95 12/20/19 16:37 75 103/64 (77) 95 12/20/19 16:36 103/64 12/20/19 16:32 77 103/64 (77) 12/20/19 16:29 126/67 12/20/19 16:27 75 126/67 (86) 95 12/20/19 16:22 77 95/70 (78) 95 12/20/19 16:17 77 92/71 (78) 94 12/20/19 16:12 77 88/56 (67) 94 12/20/19 16:07 101/57 12/20/19 16:00 98.2 77 18 107/57 (74) 94 12/20/19 12:00 97.8 78 20 112/53 (72) 94 Intake and Output 12/20/19 12/21/19 19:00 07:00 Intake Total 1040 ml 250 ml Output Total 1850 ml Balance -810 ml 250 ml Intake Oral 1040 ml 250 ml Output Urine Total 1850 ml # Voids 6 2 Laboratory Tests 12/21/19 04:40: White Blood Count 9.8, Red Blood Count 3.74L, Hemoglobin 12.2L, Hematocrit 34.3L , Mean Corpuscular Volume 92, Mean Corpuscular Hemoglobin 32.5H, Mean Corpuscular Hemoglobin Concent 35.5, Red Cell Distribution Width 12.4, Platelet Count 264, Mean Platelet Volume 5.6L, Neutrophils (%) (Auto) 64.7, Lymphocytes ( %) (Auto) 22.1, Monocytes (%) (Auto) 9.2, Eosinophils (%) (Auto) 3.0, Basophils (%) (Auto) 1.0, Sodium Level 137, Potassium Level 4.3, Chloride Level 102, Carbon Dioxide Level 24, Anion Gap 11, Blood Urea Nitrogen 33H, Creatinine 1.3, Estimat Glomerular Filtration Rate 57.3, Glucose Level 281H, Calcium Level 9.0 Height (Feet): 5 Height (Inches): 4.00 Weight (Pounds): 271 General Appearance: alert EENT: normal ENT inspection Neck: normal alignment Cardiovascular: normal peripheral pulses, normal rate, regular rhythm Respiratory/Chest: chest wall non-tender, lungs clear, normal breath sounds Abdomen: normal bowel sounds, non tender, soft Extremities: normal inspection Edema: 1+ Arm (L), 1+ Arm (R), 1+ Leg (L), 1+ Leg (R), 1+ Pedal (L), 1+ Pedal ( R), 1+ Generalized Edema: trace edema Neurologic: responsive, motor weakness Skin: normal pigmentation, warm/dry Fermín Griggs DO Dec 21, 2019 10:00
[2019-12-21 12:00] VITALS: BP 126/76
--- NOTE | 2019-12-21 13:55 | General Progress Note ---
Assessment/Plan Problem List: (1) Hypothyroid ICD Codes: E03.9 - Hypothyroidism, unspecified SNOMED: 40875378 (2) Acute exacerbation of CHF (congestive heart failure) ICD Codes: I50.9 - Heart failure, unspecified SNOMED: 124337594, 25339784731864 (3) Hyperglycemia ICD Codes: R73.9 - Hyperglycemia, unspecified SNOMED: 29456683 (4) Chest pain ICD Codes: R07.9 - Chest pain, unspecified SNOMED: 71366976 Status: stable, progressing Assessment/Plan: increase Levemir to 60 units qam increase Novolog to 23 units ac tid + sliding scale ac / hs continue Starlix 120 mg ac tid continue Januvia 100 mg daily continue Levothyroxine 50 mcg daily Subjective Allergies: Coded Allergies: No Known Allergies (Unverified , 12/08/19) All Systems: reviewed and negative except above Subjective events noted glucose values are elevated despite high dose insulin regimen there are many regular juice boxes at bedside - orange and apple Item Value Date Time Bedside Blood Glucose 281 mg/dl H 12/21/19 1158 Bedside Blood Glucose 234 mg/dl H 12/21/19 0840 Bedside Blood Glucose 323 mg/dl H 12/21/19 0633 Bedside Blood Glucose 209 mg/dl H 12/20/19 2100 Bedside Blood Glucose 190 mg/dl H 12/20/19 1718 Objective Last 24 Hour Vital Signs Date Time Temp Pulse Resp B/P (MAP) Pulse Ox O2 Delivery O2 Flow Rate FiO2 12/21/19 12:00 97.6 76 18 126/76 (93) 99 81 12/21/19 09:00 107/66 12/21/19 08:36 93 107/66 12/21/19 08:18 Room Air 12/21/19 08:00 97.6 93 18 107/66 (80) 99 81 12/21/19 03:45 97.5 81 18 103/67 (79) 99 81 12/21/19 00:00 97.9 88 18 99/54 (69) 97 88 12/20/19 21:45 88 102/56 12/20/19 21:00 Room Air 12/20/19 20:00 97.8 88 17 102/56 (71) 99 88 12/20/19 16:47 79 113/61 (78) 95 12/20/19 16:42 76 115/60 (78) 95 12/20/19 16:37 75 103/64 (77) 95 12/20/19 16:36 103/64 12/20/19 16:32 77 103/64 (77) 12/20/19 16:29 126/67 12/20/19 16:27 75 126/67 (86) 95 12/20/19 16:22 77 95/70 (78) 95 12/20/19 16:17 77 92/71 (78) 94 12/20/19 16:12 77 88/56 (67) 94 12/20/19 16:07 101/57 12/20/19 16:00 98.2 77 18 107/57 (74) 94 Intake and Output 12/20/19 12/21/19 19:00 07:00 Intake Total 1040 ml 250 ml Output Total 1850 ml Balance -810 ml 250 ml Intake Oral 1040 ml 250 ml Output Urine Total 1850 ml # Voids 6 2 Laboratory Tests 12/21/19 04:40: White Blood Count 9.8, Red Blood Count 3.74L, Hemoglobin 12.2L, Hematocrit 34.3L , Mean Corpuscular Volume 92, Mean Corpuscular Hemoglobin 32.5H, Mean Corpuscular Hemoglobin Concent 35.5, Red Cell Distribution Width 12.4, Platelet Count 264, Mean Platelet Volume 5.6L, Neutrophils (%) (Auto) 64.7, Lymphocytes ( %) (Auto) 22.1, Monocytes (%) (Auto) 9.2, Eosinophils (%) (Auto) 3.0, Basophils (%) (Auto) 1.0, Sodium Level 137, Potassium Level 4.3, Chloride Level 102, Carbon Dioxide Level 24, Anion Gap 11, Blood Urea Nitrogen 33H, Creatinine 1.3, Estimat Glomerular Filtration Rate 57.3, Glucose Level 281H, Calcium Level 9.0 Height (Feet): 5 Height (Inches): 4.00 Weight (Pounds): 271 General Appearance: no apparent distress Neck: normal alignment Cardiovascular: normal rate Respiratory/Chest: lungs clear Abdomen: normal bowel sounds Edema: 1+ Arm (L), 1+ Arm (R), 1+ Leg (L), 1+ Leg (R), 1+ Pedal (L), 1+ Pedal ( R), 1+ Generalized Objective Current Medications Medications (Trade) Dose Ordered Sig/Rodney Route PRN Reason Start Time Stop Time Status Last Admin Dose Admin Acetaminophen (Tylenol) 650 mg Q4H PRN ORAL T>100.5 12/13/19 09:45 01/07/20 06:14 Aspirin (Ecotrin) 81 mg DAILY ORAL 12/13/19 09:00 01/08/20 08:59 12/21/19 08:35 Atorvastatin Calcium (Lipitor) 80 mg BEDTIME ORAL 12/13/19 21:00 01/07/20 20:59 12/20/19 21:43 Bupropion HCl (Wellbutrin SR) 150 mg DAILY ORAL 12/13/19 09:00 01/10/20 08:59 12/21/19 08:36 Clopidogrel Bisulfate (Plavix) 75 mg DAILY ORAL 12/13/19 09:00 01/08/20 08:59 12/21/19 08:35 Dextrose (Dextrose 50%) 25 ml Q30M PRN IV Hypoglycemia 12/13/19 06:15 01/08/20 06:14 Dextrose (Dextrose 50%) 50 ml Q30M PRN IV Hypoglycemia 12/13/19 06:15 01/08/20 06:14 Furosemide (Lasix) 40 mg BID IV 12/20/19 09:00 01/19/20 08:59 12/21/19 08:34 Gabapentin (Neurontin) 300 mg BEDTIME ORAL 12/13/19 21:00 01/07/20 20:59 12/20/19 21:46 Gabapentin (Neurontin) 300 mg THREE TIMES A DAY ORAL 12/13/19 09:00 01/08/20 09:59 12/21/19 12:02 Insulin Aspart (NovoLOG) BEFORE MEALS AND HS SUBQ 12/13/19 06:30 01/07/20 16:29 12/21/19 11:57 Insulin Aspart (NovoLOG) 20 units NOVOTIAC SUBQ 12/20/19 11:50 01/08/20 06:29 12/21/19 11:58 Insulin Detemir (Levemir) 55 units DAILY SUBQ 12/20/19 09:00 01/08/20 08:59 12/21/19 08:40 Isosorbide Mononitrate (Imdur) 60 mg DAILY ORAL 12/13/19 09:00 01/11/20 08:59 12/20/19 08:32 Levothyroxine Sodium (Synthroid) 50 mcg DAILY@0630 ORAL 12/13/19 06:30 01/08/20 06:29 12/21/19 06:21 Lidocaine (Lidoderm 5% PATCH) 1 patch DAILY TDERMAL 12/13/19 09:00 01/08/20 09:59 12/21/19 08:36 Methocarbamol (Robaxin) 500 mg Q8H PRN ORAL muscle spasm 12/13/19 06:15 01/08/20 06:14 12/19/19 07:30 Metolazone (Zaroxolyn) 2.5 mg DAILY@0830 ORAL 12/20/19 08:30 01/19/20 08:29 12/21/19 08:34 Metoprolol Tartrate (Lopressor) 25 mg EVERY 12 HOURS ORAL 12/13/19 09:00 01/07/20 20:59 12/21/19 08:36 Mirtazapine (Remeron) 7.5 mg BEDTIME ORAL 12/13/19 21:00 01/07/20 20:59 12/17/19 21:51 Morphine HCl (Morphine IR) 7.5 mg Q4H PRN ORAL For Pain 12/20/19 10:00 12/27/19 09:59 Nateglinide (Starlix) 120 mg THREE TIMES A DAY ORAL 12/13/19 09:00 01/05/20 12:59 12/21/19 12:02 Nitroglycerin (Ntg) 0.4 mg Q5M PRN SL Prn Chest Pain 12/13/19 06:05 01/09/20 17:59 12/20/19 16:36 Pantoprazole (Protonix) 40 mg DAILY ORAL 12/13/19 09:00 01/08/20 08:59 12/21/19 08:35 Sitagliptin Phosphate (Januvia) 100 mg ACBREAKFAST ORAL 12/13/19 06:30 01/08/20 06:29 12/21/19 06:21 Shon Maldonado MD Dec 21, 2019 13:55
[2019-12-21 16:00] VITALS: BP 110/65
--- NOTE | 2019-12-21 17:45 | Cardiology Progress Note ---
Assessment/Plan Assessment/Plan 1. Chest pain, chronic, recurrent. 2. Coronary artery disease, status post coronary artery bypass graft and multiple stents. 3. Diabetes, poor control. 4. Hypertension. 5. Hyperlipidemia. 6. Obesity cath at [facility] 07/2019 showed svg disease that had pci however showed the vessels taper to small vessel indicating probably diffuse disease small vessel will not be amenable to pci or bypass seems to be be doing ok he want more diuretic but ct is up adn i will not add metolazone leg elevation watch cr Subjective Cardiovascular: Reports: chest pain - but chronic and he sasy he has learned to live with it ; Denies: lightheadedness, palpitations Respiratory: Denies: shortness of breath Gastrointestinal/Abdominal: Denies: abdominal pain Genitourinary: Denies: burning Subjective leg swollen not urinating want more diurtic Objective Last 24 Hour Vital Signs Date Time Temp Pulse Resp B/P (MAP) Pulse Ox O2 Delivery O2 Flow Rate FiO2 12/21/19 16:00 98.3 75 18 110/65 (80) 97 81 12/21/19 12:00 97.6 76 18 126/76 (93) 99 81 12/21/19 09:00 107/66 12/21/19 08:36 93 107/66 12/21/19 08:18 Room Air 12/21/19 08:00 97.6 93 18 107/66 (80) 99 81 12/21/19 03:45 97.5 81 18 103/67 (79) 99 81 12/21/19 00:00 97.9 88 18 99/54 (69) 97 88 12/20/19 21:45 88 102/56 12/20/19 21:00 Room Air 12/20/19 20:00 97.8 88 17 102/56 (71) 99 88 General Appearance: no apparent distress, alert Neck: supple Cardiovascular: normal rate Respiratory/Chest: lungs clear Abdomen: normal bowel sounds, non tender, soft Extremities: no swelling Intake and Output 12/20/19 12/21/19 19:00 07:00 Intake Total 1040 ml 250 ml Output Total 1850 ml Balance -810 ml 250 ml Intake Oral 1040 ml 250 ml Output Urine Total 1850 ml # Voids 6 2 Laboratory Tests Test 12/21/19 04:40 White Blood Count 9.8 K/UL (4.8-10.8) Red Blood Count 3.74 M/UL (4.70-6.10) L Hemoglobin 12.2 G/DL (14.2-18.0) L Hematocrit 34.3 % (42.0-52.0) L Mean Corpuscular Volume 92 FL (80-99) Mean Corpuscular Hemoglobin 32.5 PG (27.0-31.0) H Mean Corpuscular Hemoglobin Concent 35.5 G/DL (32.0-36.0) Red Cell Distribution Width 12.4 % (11.6-14.8) Platelet Count 264 K/UL (150-450) Mean Platelet Volume 5.6 FL (6.5-10.1) L Neutrophils (%) (Auto) 64.7 % (45.0-75.0) Lymphocytes (%) (Auto) 22.1 % (20.0-45.0) Monocytes (%) (Auto) 9.2 % (1.0-10.0) Eosinophils (%) (Auto) 3.0 % (0.0-3.0) Basophils (%) (Auto) 1.0 % (0.0-2.0) Sodium Level 137 MMOL/L (136-145) Potassium Level 4.3 MMOL/L (3.5-5.1) Chloride Level 102 MMOL/L (98-107) Carbon Dioxide Level 24 MMOL/L (21-32) Anion Gap 11 mmol/L (5-15) Blood Urea Nitrogen 33 mg/dL (7-18) H Creatinine 1.3 MG/DL (0.55-1.30) Estimat Glomerular Filtration Rate 57.3 mL/min (>60) Glucose Level 281 MG/DL (74-106) H Calcium Level 9.0 MG/DL (8.5-10.1) Sarkis Guthrie MD Dec 21, 2019 17:45
--- NOTE | 2019-12-21 19:10 | NUR ---
HAND-OFF: Report given to ONEL David. pt is stable condition.
[2019-12-21 20:03] VITALS: BP 126/79
--- NOTE | 2019-12-21 20:05 | NUR ---
nurse's notes: received patient awake, alert and oriented; admits to 8/10 generalized body pain, refused offer for pain medication; otherwise, in no apparent distress, no SOB or c/o chest pain. plan of care discussed with patient who verbalized understanding and is in agreement. VSS. Will continue to monitor.
[2019-12-21] MEDS: Morphine IR 15mg tab ORAL PRN (20:40)
[2019-12-21] MEDS: Atorvastatin 80mg tab ORAL SCH (20:42)
[2019-12-22 00:11] VITALS: BP 92/56
--- NOTE | 2019-12-22 01:52 | Progress Note ---
DATE: 12/21/2019 SUBJECTIVE: The patient is the same, in bed, no acute distress noted. The patient does not want to leave the hospital. He believes there is something serious going on poor insight. Not engaged during evaluation. MENTAL STATUS EXAMINATION: The patient is alert and oriented times self, place, and situation. Mood is neutral. Affect is flat. Thought process is concrete. Thought content, no suicidal or homicidal ideation. ASSESSMENT: Stable. PLAN: 1. We will continue current medications. 2. Provide the patient with reality orientation and supportive therapy. Kiko Botello M.D. DR: CAPO JOB#: [id number] CC:
[2019-12-22 04:00] VITALS: BP 124/84
[2019-12-22] MEDS: NovoLOG Insulin Flexpen SUBQ SCH ×7 (06:18→21:00)
[2019-12-22] MEDS: Morphine IR 15mg tab ORAL PRN (06:23)
--- NOTE | 2019-12-22 07:37 | NUR ---
NURSE NOTES: AWAKE/ALERT. NO C/O PAIN. NO CHEST PAIN. NO SOB .IN NO DISTRESS.
[2019-12-22 08:00] VITALS: BP 138/80
[2019-12-22 08:41] LABS: BASOPHILS % (AUTO) 0.9 % (0.0-2.0); EOSINOPHILS % (AUTO) 2.8 % (0.0-3.0); HEMATOCRIT 39.9 % (42.0-52.0); LYMPHOCYTES % (AUTO) 20.3 % (20.0-45.0); MEAN CORPUSCULAR VOLUME 92 FL (80-99); MONOCYTES % (AUTO) 7.6 % (1.0-10.0); NEUTROPHILS % (AUTO) 68.4 % (45.0-75.0); PLATELET COUNT 285 K/UL (150-450); RED BLOOD COUNT 4.36 M/UL (4.70-6.10); RED CELL DISTRIBUTION WIDTH 12.5 % (11.6-14.8); WHITE BLOOD COUNT 9.2 K/UL (4.8-10.8)
[2019-12-22] MEDS: Imdur 30mg tab ORAL SCH (08:51)
[2019-12-22] MEDS: Aspirin EC 81mg tab ORAL SCH (08:51)
[2019-12-22] MEDS: BuPROPion SR 150mg tab ORAL SCH (08:52)
[2019-12-22] MEDS: Levemir Flexpen SUBQ SCH (09:02)
[2019-12-22 09:07] LABS: ANION GAP 10 mmol/L (5-15); BLOOD UREA NITROGEN 36 mg/dL (7-18); CALCIUM 9.1 MG/DL (8.5-10.1); CARBON DIOXIDE 28 MMOL/L (21-32); CHLORIDE 100 MMOL/L (98-107); CREATININE 1.2 MG/DL (0.55-1.30); POTASSIUM 4.4 MMOL/L (3.5-5.1); SODIUM 137 MMOL/L (136-145)
--- NOTE | 2019-12-22 09:11 | General Progress Note ---
Assessment/Plan Problem List: (1) Diabetes ICD Codes: E11.9 - Type 2 diabetes mellitus without complications SNOMED: 09025028 (2) HTN (hypertension) ICD Codes: I10 - Essential (primary) hypertension SNOMED: 18965285 (3) Malnutrition ICD Codes: E46 - Unspecified protein-calorie malnutrition SNOMED: 15217889 (4) Chest pain ICD Codes: R07.9 - Chest pain, unspecified SNOMED: 48946148 (5) Hyperglycemia ICD Codes: R73.9 - Hyperglycemia, unspecified SNOMED: 13293351 (6) Pain ICD Codes: R52 - Pain, unspecified SNOMED: 67634599 (7) Acute exacerbation of CHF (congestive heart failure) ICD Codes: I50.9 - Heart failure, unspecified SNOMED: 675814811, [id number] (8) Hypothyroid ICD Codes: E03.9 - Hypothyroidism, unspecified SNOMED: 07875473 Status: stable, progressing Assessment/Plan: pt diet bp pain control dc if clear by cardio and neuro cbc bmp am Subjective Constitutional: Reports: weakness Allergies: Coded Allergies: No Known Allergies (Unverified , 12/08/19) All Systems: reviewed and negative except above Subjective sl anxious in bed c/o foot swelling Objective Last 24 Hour Vital Signs Date Time Temp Pulse Resp B/P (MAP) Pulse Ox O2 Delivery O2 Flow Rate FiO2 12/22/19 08:52 76 138/80 12/22/19 08:51 138/80 12/22/19 04:00 98.2 77 18 124/84 (97) 99 12/22/19 00:11 98.2 78 17 92/56 (68) 97 12/21/19 21:00 Room Air 12/21/19 20:41 76 126/79 12/21/19 20:03 97.4 76 19 126/79 (95) 96 76 12/21/19 16:00 98.3 75 18 110/65 (80) 97 81 12/21/19 12:00 97.6 76 18 126/76 (93) 99 81 Intake and Output 12/21/19 12/22/19 19:00 07:00 Intake Total 500 ml 500 ml Output Total 1450 ml Balance 500 ml -950 ml Intake Oral 500 ml 500 ml Output Urine Total 1450 ml # Voids 3 3 Laboratory Tests 12/22/19 07:53: White Blood Count 9.2, Red Blood Count 4.36L, Hemoglobin 14.0L, Hematocrit 39.9L , Mean Corpuscular Volume 92, Mean Corpuscular Hemoglobin 32.1H, Mean Corpuscular Hemoglobin Concent 35.0, Red Cell Distribution Width 12.5, Platelet Count 285, Mean Platelet Volume 5.4L, Neutrophils (%) (Auto) 68.4, Lymphocytes ( %) (Auto) 20.3, Monocytes (%) (Auto) 7.6, Eosinophils (%) (Auto) 2.8, Basophils (%) (Auto) 0.9, Sodium Level [Pending], Potassium Level [Pending], Chloride Level [Pending], Carbon Dioxide Level [Pending], Blood Urea Nitrogen [Pending], Creatinine [Pending], Estimat Glomerular Filtration Rate [Pending], Glucose Level [Pending], Calcium Level [Pending] Height (Feet): 5 Height (Inches): 4.00 Weight (Pounds): 271 General Appearance: alert EENT: normal ENT inspection Neck: normal alignment Cardiovascular: normal peripheral pulses, normal rate, regular rhythm Respiratory/Chest: chest wall non-tender, lungs clear, normal breath sounds Abdomen: normal bowel sounds, non tender, soft Extremities: normal inspection Edema: 1+ Arm (L), 1+ Arm (R), 1+ Leg (L), 1+ Leg (R), 1+ Pedal (L), 1+ Pedal ( R), 1+ Generalized Neurologic: responsive, motor weakness Skin: normal pigmentation, warm/dry Fermín Griggs DO Dec 22, 2019 09:11
[2019-12-22 12:00] VITALS: BP 130/84
--- NOTE | 2019-12-22 12:34 | General Progress Note ---
Assessment/Plan Problem List: (1) Hypothyroid ICD Codes: E03.9 - Hypothyroidism, unspecified SNOMED: 69411650 (2) Acute exacerbation of CHF (congestive heart failure) ICD Codes: I50.9 - Heart failure, unspecified SNOMED: 552568483, 15790024791012 (3) Hyperglycemia ICD Codes: R73.9 - Hyperglycemia, unspecified SNOMED: 42731772 (4) Chest pain ICD Codes: R07.9 - Chest pain, unspecified SNOMED: 46677981 Status: stable, progressing Assessment/Plan: continue Levemir 60 units qam increase Novolog to 30 units ac tid + sliding scale ac / hs continue Starlix 120 mg ac tid continue Januvia 100 mg daily continue Levothyroxine 50 mcg daily Subjective Allergies: Coded Allergies: No Known Allergies (Unverified , 12/08/19) All Systems: reviewed and negative except above Subjective events noted glucose values are elevated despite high dose insulin regimen in good spirit Item Value Date Time Bedside Blood Glucose 277 mg/dl H 12/22/19 1145 Bedside Blood Glucose 271 mg/dl H 12/22/19 0902 Bedside Blood Glucose 271 mg/dl H 12/22/19 0619 Bedside Blood Glucose 281 mg/dl H 12/21/19 2100 Bedside Blood Glucose 196 mg/dl H 12/21/19 1706 Bedside Blood Glucose 281 mg/dl H 12/21/19 1158 Bedside Blood Glucose 234 mg/dl H 12/21/19 0840 Objective Last 24 Hour Vital Signs Date Time Temp Pulse Resp B/P (MAP) Pulse Ox O2 Delivery O2 Flow Rate FiO2 12/22/19 09:00 Room Air 12/22/19 08:52 76 138/80 12/22/19 08:51 138/80 12/22/19 08:00 97.8 76 22 138/80 (99) 98 12/22/19 04:00 98.2 77 18 124/84 (97) 99 12/22/19 00:11 98.2 78 17 92/56 (68) 97 12/21/19 21:00 Room Air 12/21/19 20:41 76 126/79 12/21/19 20:03 97.4 76 19 126/79 (95) 96 76 12/21/19 16:00 98.3 75 18 110/65 (80) 97 81 Intake and Output 12/21/19 12/22/19 19:00 07:00 Intake Total 500 ml 500 ml Output Total 1450 ml Balance 500 ml -950 ml Intake Oral 500 ml 500 ml Output Urine Total 1450 ml # Voids 3 3 Laboratory Tests 12/22/19 07:53: White Blood Count 9.2, Red Blood Count 4.36L, Hemoglobin 14.0L, Hematocrit 39.9L , Mean Corpuscular Volume 92, Mean Corpuscular Hemoglobin 32.1H, Mean Corpuscular Hemoglobin Concent 35.0, Red Cell Distribution Width 12.5, Platelet Count 285, Mean Platelet Volume 5.4L, Neutrophils (%) (Auto) 68.4, Lymphocytes ( %) (Auto) 20.3, Monocytes (%) (Auto) 7.6, Eosinophils (%) (Auto) 2.8, Basophils (%) (Auto) 0.9, Sodium Level 137, Potassium Level 4.4, Chloride Level 100, Carbon Dioxide Level 28, Anion Gap 10, Blood Urea Nitrogen 36H, Creatinine 1.2, Estimat Glomerular Filtration Rate > 60, Glucose Level 345H, Calcium Level 9.1 Height (Feet): 5 Height (Inches): 4.00 Weight (Pounds): 271 General Appearance: no apparent distress Neck: normal alignment Cardiovascular: normal rate Respiratory/Chest: lungs clear Abdomen: normal bowel sounds Pelvis: normal external exam Objective Current Medications Medications (Trade) Dose Ordered Sig/Rodney Route PRN Reason Start Time Stop Time Status Last Admin Dose Admin Acetaminophen (Tylenol) 650 mg Q4H PRN ORAL T>100.5 12/13/19 09:45 01/07/20 06:14 Aspirin (Ecotrin) 81 mg DAILY ORAL 12/13/19 09:00 01/08/20 08:59 12/22/19 08:51 Atorvastatin Calcium (Lipitor) 80 mg BEDTIME ORAL 12/13/19 21:00 01/07/20 20:59 12/21/19 20:42 Bupropion HCl (Wellbutrin SR) 150 mg DAILY ORAL 12/13/19 09:00 01/10/20 08:59 12/22/19 08:52 Clopidogrel Bisulfate (Plavix) 75 mg DAILY ORAL 12/13/19 09:00 01/08/20 08:59 12/22/19 08:51 Dextrose (Dextrose 50%) 25 ml Q30M PRN IV Hypoglycemia 12/13/19 06:15 01/08/20 06:14 Dextrose (Dextrose 50%) 50 ml Q30M PRN IV Hypoglycemia 12/13/19 06:15 01/08/20 06:14 Furosemide (Lasix) 40 mg DAILY IV 12/22/19 09:00 01/21/20 08:59 12/22/19 08:50 Gabapentin (Neurontin) 300 mg BEDTIME ORAL 12/13/19 21:00 01/07/20 20:59 12/21/19 20:41 Gabapentin (Neurontin) 300 mg THREE TIMES A DAY ORAL 12/13/19 09:00 01/08/20 09:59 12/22/19 08:50 Insulin Aspart (NovoLOG) BEFORE MEALS AND HS SUBQ 12/13/19 06:30 01/07/20 16:29 12/22/19 11:45 Insulin Aspart (NovoLOG) 23 units NOVOTIAC SUBQ 12/21/19 16:50 01/08/20 06:29 12/22/19 11:45 Insulin Detemir (Levemir) 60 units DAILY SUBQ 12/22/19 09:00 01/08/20 08:59 12/22/19 09:02 Isosorbide Mononitrate (Imdur) 60 mg DAILY ORAL 12/13/19 09:00 01/11/20 08:59 12/22/19 08:51 Levothyroxine Sodium (Synthroid) 50 mcg DAILY@0630 ORAL 12/13/19 06:30 01/08/20 06:29 12/22/19 06:16 Lidocaine (Lidoderm 5% PATCH) 1 patch DAILY TDERMAL 12/13/19 09:00 01/08/20 09:59 12/22/19 08:50 Methocarbamol (Robaxin) 500 mg Q8H PRN ORAL muscle spasm 12/13/19 06:15 01/08/20 06:14 12/19/19 07:30 Metoprolol Tartrate (Lopressor) 25 mg EVERY 12 HOURS ORAL 12/13/19 09:00 01/07/20 20:59 12/22/19 08:52 Mirtazapine (Remeron) 7.5 mg BEDTIME ORAL 12/13/19 21:00 01/07/20 20:59 12/17/19 21:51 Morphine HCl (Morphine IR) 7.5 mg Q4H PRN ORAL For Pain 12/20/19 10:00 12/27/19 09:59 12/22/19 06:23 Nateglinide (Starlix) 120 mg THREE TIMES A DAY ORAL 12/13/19 09:00 01/05/20 12:59 12/22/19 08:51 Nitroglycerin (Ntg) 0.4 mg Q5M PRN SL Prn Chest Pain 12/13/19 06:05 01/09/20 17:59 12/20/19 16:36 Pantoprazole (Protonix) 40 mg DAILY ORAL 12/13/19 09:00 01/08/20 08:59 12/22/19 08:51 Sitagliptin Phosphate (Januvia) 100 mg ACBREAKFAST ORAL 12/13/19 06:30 01/08/20 06:29 12/22/19 06:15 Shon Maldonado MD Dec 22, 2019 12:34
--- NOTE | 2019-12-22 14:20 | General Progress Note ---
Assessment/Plan Assessment/Plan: (1) Lumbar degenerative disk disease (2) Lumbar radiculopathy (3) Lumbar spondylosis (4) H/o polysubstance abuse Patient will be continued on Morphine as needed. D/w Dr. Bull and he concurred. Subjective Date patient seen: Dec 22, 2019 Time patient seen: 02:00 - pm Allergies: Coded Allergies: No Known Allergies (Unverified , 12/08/19) Subjective Constitutional: Reports: no symptoms HEENT: Reports: no symptoms Cardiovascular: Reports: no symptoms Respiratory: Reports: no symptoms Gastrointestinal/Abdominal: Reports: no symptoms Genitourinary: Reports: no symptoms Neurologic/Psychiatric: Reports: no symptoms Endocrine: Reports: no symptoms Hematologic/Lymphatic: Reports: no symptoms Subjective Patient has been c/o continued pain and has used 2 doses of the morphine in the last 24hrs. Has no new complaints at this time. Objective Last 24 Hour Vital Signs Date Time Temp Pulse Resp B/P (MAP) Pulse Ox O2 Delivery O2 Flow Rate FiO2 12/22/19 12:00 98.8 78 20 130/84 (99) 98 12/22/19 09:00 Room Air 12/22/19 08:52 76 138/80 12/22/19 08:51 138/80 12/22/19 08:00 97.8 76 22 138/80 (99) 98 12/22/19 04:00 98.2 77 18 124/84 (97) 99 12/22/19 00:11 98.2 78 17 92/56 (68) 97 12/21/19 21:00 Room Air 12/21/19 20:41 76 126/79 12/21/19 20:03 97.4 76 19 126/79 (95) 96 76 12/21/19 16:00 98.3 75 18 110/65 (80) 97 81 Intake and Output 12/21/19 12/22/19 19:00 07:00 Intake Total 500 ml 500 ml Output Total 1450 ml Balance 500 ml -950 ml Intake Oral 500 ml 500 ml Output Urine Total 1450 ml # Voids 3 3 Laboratory Tests 12/22/19 07:53: White Blood Count 9.2, Red Blood Count 4.36L, Hemoglobin 14.0L, Hematocrit 39.9L , Mean Corpuscular Volume 92, Mean Corpuscular Hemoglobin 32.1H, Mean Corpuscular Hemoglobin Concent 35.0, Red Cell Distribution Width 12.5, Platelet Count 285, Mean Platelet Volume 5.4L, Neutrophils (%) (Auto) 68.4, Lymphocytes ( %) (Auto) 20.3, Monocytes (%) (Auto) 7.6, Eosinophils (%) (Auto) 2.8, Basophils (%) (Auto) 0.9, Sodium Level 137, Potassium Level 4.4, Chloride Level 100, Carbon Dioxide Level 28, Anion Gap 10, Blood Urea Nitrogen 36H, Creatinine 1.2, Estimat Glomerular Filtration Rate > 60, Glucose Level 345H, Calcium Level 9.1 Height (Feet): 5 Height (Inches): 4.00 Weight (Pounds): 271 Objective General Appearance: no apparent distress, alert EENT: PERRL/EOMI, normal ENT inspection Neck: non-tender, normal alignment Cardiovascular: normal rate, regular rhythm Respiratory/Chest: lungs clear, normal breath sounds Abdomen: non tender, soft Extremities: non-tender Edema: no edema noted Generalized Neurologic: alert, oriented x 3 Skin: warm/dry Steve Walker Dec 22, 2019 14:20
--- NOTE | 2019-12-22 15:38 | Cardiology Progress Note ---
Assessment/Plan Assessment/Plan 1. Chest pain, chronic, recurrent. 2. Coronary artery disease, status post coronary artery bypass graft and multiple stents. 3. Diabetes, poor control. 4. Hypertension. 5. Hyperlipidemia. 6. Obesity cath at [facility] 07/2019 showed svg disease that had pci however showed the vessels taper to small vessel indicating probably diffuse disease small vessel will not be amenable to pci or bypass seems to be be doing ok he want more diuretic but cr was up his lugn seem clera and his edema now that in bed is better iexplained my ratinale for decrese in diuretic leg elevation thompson nubia knee high Subjective Cardiovascular: Denies: chest pain, lightheadedness Subjective doign sos so he says Objective Last 24 Hour Vital Signs Date Time Temp Pulse Resp B/P (MAP) Pulse Ox O2 Delivery O2 Flow Rate FiO2 12/22/19 12:00 98.8 78 20 130/84 (99) 98 12/22/19 09:00 Room Air 12/22/19 08:52 76 138/80 12/22/19 08:51 138/80 12/22/19 08:00 97.8 76 22 138/80 (99) 98 12/22/19 04:00 98.2 77 18 124/84 (97) 99 12/22/19 00:11 98.2 78 17 92/56 (68) 97 12/21/19 21:00 Room Air 12/21/19 20:41 76 126/79 12/21/19 20:03 97.4 76 19 126/79 (95) 96 76 12/21/19 16:00 98.3 75 18 110/65 (80) 97 81 General Appearance: no apparent distress, alert Cardiovascular: normal rate Respiratory/Chest: lungs clear Abdomen: normal bowel sounds, non tender, soft Extremities: trace edema Intake and Output 12/21/19 12/22/19 19:00 07:00 Intake Total 500 ml 500 ml Output Total 1450 ml Balance 500 ml -950 ml Intake Oral 500 ml 500 ml Output Urine Total 1450 ml # Voids 3 3 Laboratory Tests Test 12/22/19 07:53 White Blood Count 9.2 K/UL (4.8-10.8) Red Blood Count 4.36 M/UL (4.70-6.10) L Hemoglobin 14.0 G/DL (14.2-18.0) L Hematocrit 39.9 % (42.0-52.0) L Mean Corpuscular Volume 92 FL (80-99) Mean Corpuscular Hemoglobin 32.1 PG (27.0-31.0) H Mean Corpuscular Hemoglobin Concent 35.0 G/DL (32.0-36.0) Red Cell Distribution Width 12.5 % (11.6-14.8) Platelet Count 285 K/UL (150-450) Mean Platelet Volume 5.4 FL (6.5-10.1) L Neutrophils (%) (Auto) 68.4 % (45.0-75.0) Lymphocytes (%) (Auto) 20.3 % (20.0-45.0) Monocytes (%) (Auto) 7.6 % (1.0-10.0) Eosinophils (%) (Auto) 2.8 % (0.0-3.0) Basophils (%) (Auto) 0.9 % (0.0-2.0) Sodium Level 137 MMOL/L (136-145) Potassium Level 4.4 MMOL/L (3.5-5.1) Chloride Level 100 MMOL/L (98-107) Carbon Dioxide Level 28 MMOL/L (21-32) Anion Gap 10 mmol/L (5-15) Blood Urea Nitrogen 36 mg/dL (7-18) H Creatinine 1.2 MG/DL (0.55-1.30) Estimat Glomerular Filtration Rate > 60 mL/min (>60) Glucose Level 345 MG/DL (74-106) H Calcium Level 9.1 MG/DL (8.5-10.1) Sarkis Guthrie MD Dec 22, 2019 15:38
[2019-12-22 16:00] VITALS: BP 130/84
--- NOTE | 2019-12-22 19:00 | NUR ---
NURSE NOTES: resting . in no acute distress.
--- NOTE | 2019-12-22 19:10 | NUR ---
HAND-OFF: Report given to jodee landaverde.
[2019-12-22 20:00] VITALS: BP 128/62
--- NOTE | 2019-12-22 21:00 | NUR ---
NURSE NOTES: Received patient awake, alert and oriented; c/o 5/10 generalized body pain, refused pain medication; otherwise, in no apparent distress, no SOB or c/o chest pain. Removed lidocaine patch from lower back. Will monitor blood sugar closely and per MD order.
[2019-12-22] MEDS: Atorvastatin 80mg tab ORAL SCH (21:05)
[2019-12-23] VITALS (7 sets, daily range): BP systolic 102–170; BP diastolic 56–89
[2019-12-23] MEDS: NovoLOG Insulin Flexpen SUBQ SCH ×7 (06:05→20:48)
--- NOTE | 2019-12-23 06:44 | General Progress Note ---
Assessment/Plan Problem List: (1) Hypothyroid ICD Codes: E03.9 - Hypothyroidism, unspecified SNOMED: 98935228 (2) Acute exacerbation of CHF (congestive heart failure) ICD Codes: I50.9 - Heart failure, unspecified SNOMED: 315737221, 38638037166650 (3) Hyperglycemia ICD Codes: R73.9 - Hyperglycemia, unspecified SNOMED: 70241052 (4) Chest pain ICD Codes: R07.9 - Chest pain, unspecified SNOMED: 59612262 Assessment/Plan: continue Levemir 60 units qam continue Novolog 30 units ac tid + sliding scale ac / hs continue Starlix 120 mg ac tid continue Januvia 100 mg daily continue Levothyroxine 50 mcg daily Subjective Allergies: Coded Allergies: No Known Allergies (Unverified , 12/08/19) All Systems: reviewed and negative except above Subjective events noted glucose values trending down Item Value Date Time Bedside Blood Glucose 242 mg/dl H 12/23/19 0605 Bedside Blood Glucose 127 mg/dl H 12/22/19 2020 Bedside Blood Glucose 186 mg/dl H 12/22/19 1659 Bedside Blood Glucose 277 mg/dl H 12/22/19 1145 Bedside Blood Glucose 271 mg/dl H 12/22/19 0902 Bedside Blood Glucose 271 mg/dl H 12/22/19 0619 Objective Last 24 Hour Vital Signs Date Time Temp Pulse Resp B/P (MAP) Pulse Ox O2 Delivery O2 Flow Rate FiO2 12/23/19 04:00 97.9 76 17 113/62 (79) 98 12/23/19 00:00 98.3 81 18 106/61 (76) 98 12/22/19 22:35 Room Air 12/22/19 20:51 75 12/22/19 20:00 97.4 82 18 128/62 (84) 98 12/22/19 16:00 98.8 78 20 130/84 (99) 98 12/22/19 12:00 98.8 78 20 130/84 (99) 98 12/22/19 09:00 Room Air 12/22/19 08:52 76 138/80 12/22/19 08:51 138/80 12/22/19 08:00 97.8 76 22 138/80 (99) 98 Intake and Output 12/22/19 12/23/19 19:00 07:00 Intake Total 1200 ml Output Total 700 ml Balance 500 ml Intake Oral 1200 ml Output Urine Total 700 ml # Voids 1 Laboratory Tests 12/22/19 07:53: White Blood Count 9.2, Red Blood Count 4.36L, Hemoglobin 14.0L, Hematocrit 39.9L , Mean Corpuscular Volume 92, Mean Corpuscular Hemoglobin 32.1H, Mean Corpuscular Hemoglobin Concent 35.0, Red Cell Distribution Width 12.5, Platelet Count 285, Mean Platelet Volume 5.4L, Neutrophils (%) (Auto) 68.4, Lymphocytes ( %) (Auto) 20.3, Monocytes (%) (Auto) 7.6, Eosinophils (%) (Auto) 2.8, Basophils (%) (Auto) 0.9, Sodium Level 137, Potassium Level 4.4, Chloride Level 100, Carbon Dioxide Level 28, Anion Gap 10, Blood Urea Nitrogen 36H, Creatinine 1.2, Estimat Glomerular Filtration Rate > 60, Glucose Level 345H, Calcium Level 9.1 Height (Feet): 5 Height (Inches): 4.00 Weight (Pounds): 271 General Appearance: no apparent distress Neck: normal alignment Cardiovascular: normal rate Respiratory/Chest: lungs clear Abdomen: normal bowel sounds Pelvis: normal external exam Objective Current Medications Medications (Trade) Dose Ordered Sig/Rodney Route PRN Reason Start Time Stop Time Status Last Admin Dose Admin Acetaminophen (Tylenol) 650 mg Q4H PRN ORAL T>100.5 12/13/19 09:45 01/07/20 06:14 Aspirin (Ecotrin) 81 mg DAILY ORAL 12/13/19 09:00 01/08/20 08:59 12/22/19 08:51 Atorvastatin Calcium (Lipitor) 80 mg BEDTIME ORAL 12/13/19 21:00 01/07/20 20:59 12/22/19 21:05 Bupropion HCl (Wellbutrin SR) 150 mg DAILY ORAL 12/13/19 09:00 01/10/20 08:59 12/22/19 08:52 Clopidogrel Bisulfate (Plavix) 75 mg DAILY ORAL 12/13/19 09:00 01/08/20 08:59 12/22/19 08:51 Dextrose (Dextrose 50%) 25 ml Q30M PRN IV Hypoglycemia 12/13/19 06:15 01/08/20 06:14 Dextrose (Dextrose 50%) 50 ml Q30M PRN IV Hypoglycemia 12/13/19 06:15 01/08/20 06:14 Furosemide (Lasix) 40 mg DAILY IV 12/22/19 09:00 01/21/20 08:59 12/22/19 08:50 Gabapentin (Neurontin) 300 mg BEDTIME ORAL 12/13/19 21:00 01/07/20 20:59 12/22/19 20:51 Gabapentin (Neurontin) 300 mg THREE TIMES A DAY ORAL 12/13/19 09:00 01/08/20 09:59 12/22/19 17:22 Insulin Aspart (NovoLOG) BEFORE MEALS AND HS SUBQ 12/13/19 06:30 01/07/20 16:29 12/23/19 06:05 Insulin Aspart (NovoLOG) 30 units NOVOTIAC SUBQ 12/22/19 16:50 01/08/20 06:29 12/23/19 06:05 Insulin Detemir (Levemir) 60 units DAILY SUBQ 12/22/19 09:00 01/08/20 08:59 12/22/19 09:02 Isosorbide Mononitrate (Imdur) 60 mg DAILY ORAL 12/13/19 09:00 01/11/20 08:59 12/22/19 08:51 Levothyroxine Sodium (Synthroid) 50 mcg DAILY@0630 ORAL 12/13/19 06:30 01/08/20 06:29 12/23/19 05:59 Lidocaine (Lidoderm 5% PATCH) 1 patch DAILY TDERMAL 12/13/19 09:00 01/08/20 09:59 12/22/19 08:50 Methocarbamol (Robaxin) 500 mg Q8H PRN ORAL muscle spasm 12/13/19 06:15 01/08/20 06:14 12/19/19 07:30 Metoprolol Tartrate (Lopressor) 25 mg EVERY 12 HOURS ORAL 12/13/19 09:00 01/07/20 20:59 12/22/19 20:51 Mirtazapine (Remeron) 7.5 mg BEDTIME ORAL 12/13/19 21:00 01/07/20 20:59 12/17/19 21:51 Morphine HCl (Morphine IR) 7.5 mg Q4H PRN ORAL For Pain 12/20/19 10:00 12/27/19 09:59 12/22/19 06:23 Nateglinide (Starlix) 120 mg THREE TIMES A DAY ORAL 12/13/19 09:00 01/05/20 12:59 12/22/19 17:22 Nitroglycerin (Ntg) 0.4 mg Q5M PRN SL Prn Chest Pain 12/13/19 06:05 01/09/20 17:59 12/20/19 16:36 Pantoprazole (Protonix) 40 mg DAILY ORAL 12/13/19 09:00 01/08/20 08:59 12/22/19 08:51 Sitagliptin Phosphate (Januvia) 100 mg ACBREAKFAST ORAL 12/13/19 06:30 01/08/20 06:29 12/23/19 05:59 Shon Maldonado MD Dec 23, 2019 06:44
--- NOTE | 2019-12-23 07:45 | NUR ---
NURSE NOTES: Pt sitting in bed w/bed in lowest position and call light within reach. Pt A&Ox4, VSS, and in no apparent distress. IV site intact/asymptomatic & H/L'd; skin intact; and BLE w/1+ pitting edema. Pt has no concerns or complaints at this time. Will continue to monitor.
--- NOTE | 2019-12-23 08:39 | NUR ---
*-* CASE MANAGEMENT NOTES *-* PATIENT HAS APPEALED HIS DISCHARGE WITH [facility] CASE # [id number] CASE IS STILL PENDING AT THIS TIME
--- NOTE | 2019-12-23 08:53 | General Progress Note ---
Assessment/Plan Assessment/Plan: (1) Lumbar degenerative disk disease (2) Lumbar radiculopathy (3) Lumbar spondylosis (4) H/o polysubstance abuse Patient will be continued on Morphine as needed. D/w Dr. Bull and he concurred. Subjective Date patient seen: Dec 23, 2019 Time patient seen: 08:00 - am Allergies: Coded Allergies: No Known Allergies (Unverified , 12/08/19) Subjective Constitutional: Reports: no symptoms HEENT: Reports: no symptoms Cardiovascular: Reports: no symptoms Respiratory: Reports: no symptoms Gastrointestinal/Abdominal: Reports: no symptoms Genitourinary: Reports: no symptoms Neurologic/Psychiatric: Reports: no symptoms Endocrine: Reports: no symptoms Hematologic/Lymphatic: Reports: no symptoms Subjective Patient walking and standing with no signs of pain. The pain has been tolerated on the Morphine as needed. He has no new complaints at this time. Objective Last 24 Hour Vital Signs Date Time Temp Pulse Resp B/P (MAP) Pulse Ox O2 Delivery O2 Flow Rate FiO2 12/23/19 08:05 97.9 72 18 145/79 (101) 95 12/23/19 04:00 97.9 76 17 113/62 (79) 98 12/23/19 00:00 98.3 81 18 106/61 (76) 98 12/22/19 22:35 Room Air 12/22/19 20:51 75 12/22/19 20:00 97.4 82 18 128/62 (84) 98 12/22/19 16:00 98.8 78 20 130/84 (99) 98 12/22/19 12:00 98.8 78 20 130/84 (99) 98 12/22/19 09:00 Room Air Intake and Output 12/22/19 12/23/19 19:00 07:00 Intake Total 1200 ml 450 ml Output Total 700 ml Balance 500 ml 450 ml Intake Oral 1200 ml 450 ml Output Urine Total 700 ml # Voids 1 2 Height (Feet): 5 Height (Inches): 4.00 Weight (Pounds): 271 Objective General Appearance: no apparent distress, alert EENT: PERRL/EOMI, normal ENT inspection Neck: non-tender, normal alignment Cardiovascular: normal rate, regular rhythm Respiratory/Chest: lungs clear, normal breath sounds Abdomen: non tender, soft Extremities: non-tender Edema: no edema noted Generalized Neurologic: alert, oriented x 3 Skin: warm/dry Steve Walker Dec 23, 2019 08:53
[2019-12-23] MEDS: Aspirin EC 81mg tab ORAL SCH (09:03)
[2019-12-23] MEDS: Imdur 30mg tab ORAL SCH (09:04)
[2019-12-23] MEDS: Levemir Flexpen SUBQ SCH (09:07)
[2019-12-23] MEDS: BuPROPion SR 150mg tab ORAL SCH (09:08)
[2019-12-23 09:50] LABS: BASOPHILS % (AUTO) 1.2 % (0.0-2.0); EOSINOPHILS % (AUTO) 3.4 % (0.0-3.0); HEMATOCRIT 38.2 % (42.0-52.0); MEAN CORPUSCULAR VOLUME 89 FL (80-99); MONOCYTES % (AUTO) 6.3 % (1.0-10.0); NEUTROPHILS % (AUTO) 68.2 % (45.0-75.0); PLATELET COUNT 319 K/UL (150-450); RED BLOOD COUNT 4.31 M/UL (4.70-6.10); RED CELL DISTRIBUTION WIDTH 12.7 % (11.6-14.8); WHITE BLOOD COUNT 9.1 K/UL (4.8-10.8)
[2019-12-23 10:05] LABS: ANION GAP 10 mmol/L (5-15); BLOOD UREA NITROGEN 33 mg/dL (7-18); CALCIUM 9.4 MG/DL (8.5-10.1); CARBON DIOXIDE 28 MMOL/L (21-32); CHLORIDE 101 MMOL/L (98-107); CREATININE 1.1 MG/DL (0.55-1.30); POTASSIUM 4.3 MMOL/L (3.5-5.1); SODIUM 139 MMOL/L (136-145)
--- NOTE | 2019-12-23 10:35 | General Progress Note ---
Assessment/Plan Problem List: (1) Diabetes ICD Codes: E11.9 - Type 2 diabetes mellitus without complications SNOMED: 12518059 (2) HTN (hypertension) ICD Codes: I10 - Essential (primary) hypertension SNOMED: 39558172 (3) Malnutrition ICD Codes: E46 - Unspecified protein-calorie malnutrition SNOMED: 54034230 (4) Chest pain ICD Codes: R07.9 - Chest pain, unspecified SNOMED: 96253419 (5) Hyperglycemia ICD Codes: R73.9 - Hyperglycemia, unspecified SNOMED: 55947250 (6) Pain ICD Codes: R52 - Pain, unspecified SNOMED: 68909343 (7) Acute exacerbation of CHF (congestive heart failure) ICD Codes: I50.9 - Heart failure, unspecified SNOMED: 580797991, 02364872066065 (8) Hypothyroid ICD Codes: E03.9 - Hypothyroidism, unspecified SNOMED: 05840560 Status: stable, progressing Assessment/Plan: pt diet bp pain control dc if clear by cardio and neuro cbc bmp am Subjective Constitutional: Reports: weakness Allergies: Coded Allergies: No Known Allergies (Unverified , 12/08/19) All Systems: reviewed and negative except above Subjective sl anxious in bed c/o foot swelling Objective Last 24 Hour Vital Signs Date Time Temp Pulse Resp B/P (MAP) Pulse Ox O2 Delivery O2 Flow Rate FiO2 12/23/19 09:05 72 145/79 12/23/19 09:04 145/79 12/23/19 09:00 Room Air 12/23/19 08:05 97.9 72 18 145/79 (101) 95 12/23/19 04:00 97.9 76 17 113/62 (79) 98 12/23/19 00:00 98.3 81 18 106/61 (76) 98 12/22/19 22:35 Room Air 12/22/19 20:51 75 12/22/19 20:00 97.4 82 18 128/62 (84) 98 12/22/19 16:00 98.8 78 20 130/84 (99) 98 12/22/19 12:00 98.8 78 20 130/84 (99) 98 Intake and Output 12/22/19 12/23/19 19:00 07:00 Intake Total 1200 ml 450 ml Output Total 700 ml Balance 500 ml 450 ml Intake Oral 1200 ml 450 ml Output Urine Total 700 ml # Voids 1 2 Laboratory Tests 12/23/19 08:40: White Blood Count 9.1, Red Blood Count 4.31L, Hemoglobin 14.0L, Hematocrit 38.2L , Mean Corpuscular Volume 89, Mean Corpuscular Hemoglobin 32.4H, Mean Corpuscular Hemoglobin Concent 36.6H, Red Cell Distribution Width 12.7, Platelet Count 319, Mean Platelet Volume 5.5L, Neutrophils (%) (Auto) 68.2, Lymphocytes (%) (Auto) 21.0, Monocytes (%) (Auto) 6.3, Eosinophils (%) (Auto) 3.4H, Basophils (%) (Auto) 1.2, Sodium Level 139, Potassium Level 4.3, Chloride Level 101, Carbon Dioxide Level 28, Anion Gap 10, Blood Urea Nitrogen 33H, Creatinine 1.1, Estimat Glomerular Filtration Rate > 60, Glucose Level 183#H, Calcium Level 9.4 Height (Feet): 5 Height (Inches): 4.00 Weight (Pounds): 271 General Appearance: lethargic EENT: normal ENT inspection Neck: normal alignment Cardiovascular: normal peripheral pulses, normal rate, regular rhythm Respiratory/Chest: chest wall non-tender, lungs clear, normal breath sounds Abdomen: normal bowel sounds, non tender, soft Extremities: normal inspection Edema: 1+ Arm (L), 1+ Arm (R), 1+ Leg (L), 1+ Leg (R), 1+ Pedal (L), 1+ Pedal ( R), 1+ Generalized Neurologic: responsive, motor weakness Skin: normal pigmentation, warm/dry Fermín Griggs DO Dec 23, 2019 10:35
--- NOTE | 2019-12-23 13:11 | NUR ---
Social Work This Sw received a consult due to homelessness. This SW met with patient who remains alert/oriented, making own decisions. Patient explains he plans to return to [facility] upon discharge, while planning to stay in a half-way thereafter, due to not wanting to pay his SSI to the SNF. Patient explains he gives 300 dollars per month to his mother and cannot pay SNF for SSI, nor Board/Care or transitional housing. 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 Patient is also seeking low income housing through Section 8. Patient denied any other needs or concerns (denied substance abuse, nor any mental health concerns, does not verbalize any SI/HI).
[2019-12-23] MEDS: Nitroglycerin Subl 0.4mg tab SL PRN (13:38)
[2019-12-23] MEDS: Morphine IR 15mg tab ORAL PRN ×2 (13:39→20:36)
--- NOTE | 2019-12-23 14:45 | NUR ---
NURSE NOTES: Pt c/o chest pain; Nitroglycerin 0.4 mg SL and Morphine 7.5 mg PO given; pt still c/o chest pain; Dr. Guthrie ordered STAT EKG which was NSR; notified Dr. Guthrie of results. Will continue to monitor.
--- NOTE | 2019-12-23 16:45 | NUR ---
EXPRESS MANAGER: REVIEW 12/23/19 SI: CHF EXACERBATION. HYPERGLYCEMIA. CHEST PAIN 97.9 72 18 131/79 97% ON RA BUN 33 BG 183 IS: IV LASIX BID IMDUR PO QD PLAVIX PO QD GABAPENTIN PO TID LOPRESSOR PO BID PROTONIX PO QD ASPIRIN PO QD LIPITOR PO QHS WELLBUTRIN SR PO QD NOVOLOG SQ AC&HS + SS STARLIX PO TID LEVEMIR SQ QD JANUVIA PO AC :TRANSFER 3E MED SURG UNIT PLAN: PATIENT STILL COMPLAINING OF SWELLING TO LEGS PATIENT UP IN CHAIR APPEAL STILL PENDING
--- NOTE | 2019-12-23 19:01 | NUR ---
HAND-OFF: Report given to ONEL David.
--- NOTE | 2019-12-23 20:03 | NUR ---
nurse's notes: received patient awake and alert and oriented; admits to 9/10 generalized pain; BLE still with dependent edema; patient complaining that his bed linens have not been changed since admission; also patient wants his kidneys checked prior to discharge; plan of care discussed with patient who verbalized understanding and agreement. will continue to monitor.
[2019-12-23] MEDS: Atorvastatin 80mg tab ORAL SCH (20:37)
[2019-12-24] VITALS: BP 96/53
[2019-12-24 04:00] VITALS: BP 94/55
[2019-12-24] MEDS: Morphine IR 15mg tab ORAL PRN ×2 (04:14→17:41)
[2019-12-24] MEDS: NovoLOG Insulin Flexpen SUBQ SCH ×7 (05:49→21:26)
--- NOTE | 2019-12-24 06:58 | NUR ---
nurse's notes: no significant changes noted this shift; VSS; however, blood glucose at 0600 was 331; ordered insulin given; diabetic eduction given; needs reinforcement. no falls, pain managed well with ordered medication; slept well
--- NOTE | 2019-12-24 07:14 | General Progress Note ---
Assessment/Plan Problem List: (1) Hypothyroid ICD Codes: E03.9 - Hypothyroidism, unspecified SNOMED: 40585136 (2) Acute exacerbation of CHF (congestive heart failure) ICD Codes: I50.9 - Heart failure, unspecified SNOMED: 992481088, 71441971212152 (3) Hyperglycemia ICD Codes: R73.9 - Hyperglycemia, unspecified SNOMED: 64610632 (4) Chest pain ICD Codes: R07.9 - Chest pain, unspecified SNOMED: 58670385 Status: stable, progressing Assessment/Plan: continue Levemir 60 units qam continue Novolog 30 units ac tid + sliding scale ac / hs continue Starlix 120 mg ac tid continue Januvia 100 mg daily continue Levothyroxine 50 mcg daily Subjective Allergies: Coded Allergies: No Known Allergies (Unverified , 12/08/19) Subjective events noted glucose values trending down Item Value Date Time Bedside Blood Glucose 331 mg/dl H 12/24/19 0651 Bedside Blood Glucose 175 mg/dl H 12/23/19 2100 Bedside Blood Glucose 153 mg/dl H 12/23/19 1717 Bedside Blood Glucose 233 mg/dl H 12/23/19 1136 Bedside Blood Glucose 242 mg/dl H 12/23/19 0907 Bedside Blood Glucose 242 mg/dl H 12/23/19 0615 Objective Last 24 Hour Vital Signs Date Time Temp Pulse Resp B/P (MAP) Pulse Ox O2 Delivery O2 Flow Rate FiO2 12/24/19 04:00 98.6 79 18 94/55 (68) 95 12/24/19 00:00 98.2 76 20 96/53 (67) 97 12/23/19 21:00 Room Air 12/23/19 20:38 80 134/81 12/23/19 20:00 98.3 93 21 102/56 (71) 94 12/23/19 16:30 97.6 80 18 134/81 (98) 96 12/23/19 13:38 118/65 12/23/19 12:00 97.9 72 18 131/79 (96) 97 12/23/19 09:05 72 145/79 12/23/19 09:04 145/79 12/23/19 09:00 Room Air 12/23/19 08:05 97.9 72 18 145/79 (101) 95 Intake and Output 12/23/19 12/24/19 19:00 07:00 Intake Total 1000 ml 500 ml Output Total 500 ml Balance 1000 ml 0 ml Intake Oral 1000 ml 500 ml Output Urine Total 500 ml # Voids 4 3 Laboratory Tests 12/23/19 08:40: White Blood Count 9.1, Red Blood Count 4.31L, Hemoglobin 14.0L, Hematocrit 38.2L , Mean Corpuscular Volume 89, Mean Corpuscular Hemoglobin 32.4H, Mean Corpuscular Hemoglobin Concent 36.6H, Red Cell Distribution Width 12.7, Platelet Count 319, Mean Platelet Volume 5.5L, Neutrophils (%) (Auto) 68.2, Lymphocytes (%) (Auto) 21.0, Monocytes (%) (Auto) 6.3, Eosinophils (%) (Auto) 3.4H, Basophils (%) (Auto) 1.2, Sodium Level 139, Potassium Level 4.3, Chloride Level 101, Carbon Dioxide Level 28, Anion Gap 10, Blood Urea Nitrogen 33H, Creatinine 1.1, Estimat Glomerular Filtration Rate > 60, Glucose Level 183#H, Calcium Level 9.4 12/24/19 04:50: White Blood Count [Pending], Red Blood Count [Pending], Hemoglobin [Pending], Hematocrit [Pending], Mean Corpuscular Volume [Pending], Mean Corpuscular Hemoglobin [Pending], Mean Corpuscular Hemoglobin Concent [Pending], Red Cell Distribution Width [Pending], Platelet Count [Pending], Mean Platelet Volume [ Pending], Neutrophils (%) (Auto) [Pending], Lymphocytes (%) (Auto) [Pending], Monocytes (%) (Auto) [Pending], Eosinophils (%) (Auto) [Pending], Basophils (%) (Auto) [Pending], Sodium Level [Pending], Potassium Level [Pending], Chloride Level [Pending], Carbon Dioxide Level [Pending], Blood Urea Nitrogen [Pending], Creatinine [Pending], Estimat Glomerular Filtration Rate [Pending], Glucose Level [Pending], Calcium Level [Pending] Height (Feet): 5 Height (Inches): 4.00 Weight (Pounds): 271 General Appearance: no apparent distress Neck: normal alignment Cardiovascular: normal rate Respiratory/Chest: lungs clear Abdomen: normal bowel sounds Pelvis: normal external exam Objective Current Medications Medications (Trade) Dose Ordered Sig/Rodney Route PRN Reason Start Time Stop Time Status Last Admin Dose Admin Acetaminophen (Tylenol) 650 mg Q4H PRN ORAL T>100.5 12/13/19 09:45 01/07/20 06:14 Aspirin (Ecotrin) 81 mg DAILY ORAL 12/13/19 09:00 01/08/20 08:59 12/23/19 09:03 Atorvastatin Calcium (Lipitor) 80 mg BEDTIME ORAL 12/13/19 21:00 01/07/20 20:59 12/23/19 20:37 Bupropion HCl (Wellbutrin SR) 150 mg DAILY ORAL 12/13/19 09:00 01/10/20 08:59 12/23/19 09:08 Clopidogrel Bisulfate (Plavix) 75 mg DAILY ORAL 12/13/19 09:00 01/08/20 08:59 12/23/19 09:08 Dextrose (Dextrose 50%) 25 ml Q30M PRN IV Hypoglycemia 12/13/19 06:15 01/08/20 06:14 Dextrose (Dextrose 50%) 50 ml Q30M PRN IV Hypoglycemia 12/13/19 06:15 01/08/20 06:14 Furosemide (Lasix) 40 mg DAILY IV 12/22/19 09:00 01/21/20 08:59 12/23/19 09:03 Gabapentin (Neurontin) 300 mg BEDTIME ORAL 12/13/19 21:00 01/07/20 20:59 12/23/19 20:38 Gabapentin (Neurontin) 300 mg THREE TIMES A DAY ORAL 12/13/19 09:00 01/08/20 09:59 12/23/19 17:50 Insulin Aspart (NovoLOG) BEFORE MEALS AND HS SUBQ 12/13/19 06:30 01/07/20 16:29 12/24/19 05:49 Insulin Aspart (NovoLOG) 30 units NOVOTIAC SUBQ 12/22/19 16:50 01/08/20 06:29 12/24/19 05:50 Insulin Detemir (Levemir) 60 units DAILY SUBQ 12/22/19 09:00 01/08/20 08:59 12/23/19 09:07 Isosorbide Mononitrate (Imdur) 60 mg DAILY ORAL 12/13/19 09:00 01/11/20 08:59 12/23/19 09:04 Levothyroxine Sodium (Synthroid) 50 mcg DAILY@0630 ORAL 12/13/19 06:30 01/08/20 06:29 12/24/19 05:51 Lidocaine (Lidoderm 5% PATCH) 1 patch DAILY TDERMAL 12/13/19 09:00 01/08/20 09:59 12/23/19 09:09 Methocarbamol (Robaxin) 500 mg Q8H PRN ORAL muscle spasm 12/13/19 06:15 01/08/20 06:14 12/19/19 07:30 Metoprolol Tartrate (Lopressor) 25 mg EVERY 12 HOURS ORAL 12/13/19 09:00 01/07/20 20:59 12/23/19 20:38 Mirtazapine (Remeron) 7.5 mg BEDTIME ORAL 12/13/19 21:00 01/07/20 20:59 12/17/19 21:51 Morphine HCl (Morphine IR) 7.5 mg Q4H PRN ORAL For Pain 12/20/19 10:00 12/27/19 09:59 12/24/19 04:14 Nateglinide (Starlix) 120 mg THREE TIMES A DAY ORAL 12/13/19 09:00 01/05/20 12:59 12/23/19 17:50 Nitroglycerin (Ntg) 0.4 mg Q5M PRN SL Prn Chest Pain 12/13/19 06:05 01/09/20 17:59 12/23/19 13:38 Pantoprazole (Protonix) 40 mg DAILY ORAL 12/13/19 09:00 01/08/20 08:59 12/23/19 09:07 Sitagliptin Phosphate (Januvia) 100 mg ACBREAKFAST ORAL 12/13/19 06:30 01/08/20 06:29 12/24/19 05:51 Shon Maldonado MD Dec 24, 2019 07:14
[2019-12-24 07:38] LABS: ANION GAP 9 mmol/L (5-15); BLOOD UREA NITROGEN 36 mg/dL (7-18); CALCIUM 9.1 MG/DL (8.5-10.1); CARBON DIOXIDE 28 MMOL/L (21-32); CHLORIDE 101 MMOL/L (98-107); CREATININE 1.3 MG/DL (0.55-1.30); POTASSIUM 4.6 MMOL/L (3.5-5.1); SODIUM 138 MMOL/L (136-145)
--- NOTE | 2019-12-24 07:45 | NUR ---
NURSE NOTES: Pt lying in bed w/bed in lowest position and call light within reach. Pt A&Ox4, VSS, and in no apparent distress. IV site intact/asymptomatic & H/L'd; and skin intact w/BLE trace/dependent edema noted. Encouraged pt to elevate legs and ambulate more but pt would not like to at this time. Will continue to monitor.
[2019-12-24 07:49] LABS: BASOPHILS % (AUTO) 1.2 % (0.0-2.0); EOSINOPHILS % (AUTO) 3.4 % (0.0-3.0); HEMATOCRIT 36.7 % (42.0-52.0); HEMOGLOBIN 12.9 G/DL (14.2-18.0); LYMPHOCYTES % (AUTO) 22.8 % (20.0-45.0); MEAN CORPUSCULAR VOLUME 90 FL (80-99); MONOCYTES % (AUTO) 7.4 % (1.0-10.0); NEUTROPHILS % (AUTO) 65.3 % (45.0-75.0); PLATELET COUNT 275 K/UL (150-450); RED BLOOD COUNT 4.07 M/UL (4.70-6.10); RED CELL DISTRIBUTION WIDTH 13.7 % (11.6-14.8); WHITE BLOOD COUNT 9.5 K/UL (4.8-10.8)
[2019-12-24 08:00] VITALS: BP 127/73
[2019-12-24] MEDS: Imdur 30mg tab ORAL SCH (08:31)
[2019-12-24] MEDS: BuPROPion SR 150mg tab ORAL SCH (08:32)
[2019-12-24] MEDS: Aspirin EC 81mg tab ORAL SCH (08:32)
[2019-12-24] MEDS: Levemir Flexpen SUBQ SCH (08:33)
--- NOTE | 2019-12-24 09:20 | General Progress Note ---
Assessment/Plan Assessment/Plan: (1) Lumbar degenerative disk disease (2) Lumbar radiculopathy (3) Lumbar spondylosis (4) H/o polysubstance abuse Patient will be continued on Morphine as needed. D/w Dr. Bull and he concurred. Subjective Date patient seen: Dec 24, 2019 Time patient seen: 08:30 - am Allergies: Coded Allergies: No Known Allergies (Unverified , 12/08/19) Subjective Constitutional: Reports: no symptoms HEENT: Reports: no symptoms Cardiovascular: Reports: no symptoms Respiratory: Reports: no symptoms Gastrointestinal/Abdominal: Reports: no symptoms Genitourinary: Reports: no symptoms Neurologic/Psychiatric: Reports: no symptoms Endocrine: Reports: no symptoms Hematologic/Lymphatic: Reports: no symptoms Subjective Patient is in bed and showing no signs of pain or distress. Pain has been at a moderate level and tolerated on the Morphine. No new complaints at this time. Objective Last 24 Hour Vital Signs Date Time Temp Pulse Resp B/P (MAP) Pulse Ox O2 Delivery O2 Flow Rate FiO2 12/24/19 08:32 73 127/73 12/24/19 08:31 127/73 12/24/19 08:00 98.2 73 18 127/73 (91) 96 12/24/19 04:00 98.6 79 18 94/55 (68) 95 12/24/19 00:00 98.2 76 20 96/53 (67) 97 12/23/19 21:00 Room Air 12/23/19 20:38 80 134/81 12/23/19 20:00 98.3 93 21 102/56 (71) 94 12/23/19 16:30 97.6 80 18 134/81 (98) 96 12/23/19 13:38 118/65 12/23/19 12:00 97.9 72 18 131/79 (96) 97 Intake and Output 12/23/19 12/24/19 18:59 06:59 Intake Total 1000 ml 500 ml Output Total 500 ml Balance 1000 ml 0 ml Intake Oral 1000 ml 500 ml Output Urine Total 500 ml # Voids 4 3 Laboratory Tests 12/24/19 04:50: White Blood Count 9.5, Red Blood Count 4.07L, Hemoglobin 12.9L, Hematocrit 36.7L , Mean Corpuscular Volume 90, Mean Corpuscular Hemoglobin 31.8H, Mean Corpuscular Hemoglobin Concent 35.2, Red Cell Distribution Width 13.7, Platelet Count 275, Mean Platelet Volume 6.2L, Neutrophils (%) (Auto) 65.3, Lymphocytes ( %) (Auto) 22.8, Monocytes (%) (Auto) 7.4, Eosinophils (%) (Auto) 3.4H, Basophils (%) (Auto) 1.2, Sodium Level 138, Potassium Level 4.6, Chloride Level 101, Carbon Dioxide Level 28, Anion Gap 9, Blood Urea Nitrogen 36H, Creatinine 1.3, Estimat Glomerular Filtration Rate 57.3, Glucose Level 359#H, Calcium Level 9.1 Height (Feet): 5 Height (Inches): 4.00 Weight (Pounds): 271 Objective General Appearance: no apparent distress, alert EENT: PERRL/EOMI, normal ENT inspection Neck: non-tender, normal alignment Cardiovascular: normal rate, regular rhythm Respiratory/Chest: lungs clear, normal breath sounds Abdomen: non tender, soft Extremities: non-tender Edema: no edema noted Generalized Neurologic: alert, oriented x 3 Skin: warm/dry Steve Walker Dec 24, 2019 09:20
[2019-12-24 12:00] VITALS: BP 135/83
--- NOTE | 2019-12-24 14:01 | General Progress Note ---
Assessment/Plan Problem List: (1) Diabetes ICD Codes: E11.9 - Type 2 diabetes mellitus without complications SNOMED: 52543139 (2) HTN (hypertension) ICD Codes: I10 - Essential (primary) hypertension SNOMED: 62365972 (3) Malnutrition ICD Codes: E46 - Unspecified protein-calorie malnutrition SNOMED: 36220293 (4) Chest pain ICD Codes: R07.9 - Chest pain, unspecified SNOMED: 97578930 (5) Hyperglycemia ICD Codes: R73.9 - Hyperglycemia, unspecified SNOMED: 05283472 (6) Pain ICD Codes: R52 - Pain, unspecified SNOMED: 93005189 (7) Acute exacerbation of CHF (congestive heart failure) ICD Codes: I50.9 - Heart failure, unspecified SNOMED: 746405411, 70401473552536 (8) Hypothyroid ICD Codes: E03.9 - Hypothyroidism, unspecified SNOMED: 41104015 Status: stable, progressing Assessment/Plan: pt diet bp pain control dc if clear by cardio and neuro cbc bmp am Subjective Constitutional: Reports: weakness Allergies: Coded Allergies: No Known Allergies (Unverified , 12/08/19) All Systems: reviewed and negative except above Subjective sl anxious in bed c/o foot swelling Objective Last 24 Hour Vital Signs Date Time Temp Pulse Resp B/P (MAP) Pulse Ox O2 Delivery O2 Flow Rate FiO2 12/24/19 12:00 97.7 77 20 135/83 (100) 96 12/24/19 09:00 Room Air 12/24/19 08:32 73 127/73 12/24/19 08:31 127/73 12/24/19 08:00 98.2 73 18 127/73 (91) 96 12/24/19 04:00 98.6 79 18 94/55 (68) 95 12/24/19 00:00 98.2 76 20 96/53 (67) 97 12/23/19 21:00 Room Air 12/23/19 20:38 80 134/81 12/23/19 20:00 98.3 93 21 102/56 (71) 94 12/23/19 16:30 97.6 80 18 134/81 (98) 96 Intake and Output 12/23/19 12/24/19 19:00 07:00 Intake Total 1000 ml 500 ml Output Total 500 ml Balance 1000 ml 0 ml Intake Oral 1000 ml 500 ml Output Urine Total 500 ml # Voids 4 3 Laboratory Tests 12/24/19 04:50: White Blood Count 9.5, Red Blood Count 4.07L, Hemoglobin 12.9L, Hematocrit 36.7L , Mean Corpuscular Volume 90, Mean Corpuscular Hemoglobin 31.8H, Mean Corpuscular Hemoglobin Concent 35.2, Red Cell Distribution Width 13.7, Platelet Count 275, Mean Platelet Volume 6.2L, Neutrophils (%) (Auto) 65.3, Lymphocytes ( %) (Auto) 22.8, Monocytes (%) (Auto) 7.4, Eosinophils (%) (Auto) 3.4H, Basophils (%) (Auto) 1.2, Sodium Level 138, Potassium Level 4.6, Chloride Level 101, Carbon Dioxide Level 28, Anion Gap 9, Blood Urea Nitrogen 36H, Creatinine 1.3, Estimat Glomerular Filtration Rate 57.3, Glucose Level 359#H, Calcium Level 9.1 Height (Feet): 5 Height (Inches): 4.00 Weight (Pounds): 271 General Appearance: alert EENT: normal ENT inspection Neck: normal alignment Cardiovascular: normal peripheral pulses, normal rate, regular rhythm Respiratory/Chest: chest wall non-tender, lungs clear, normal breath sounds Abdomen: normal bowel sounds, non tender, soft Extremities: normal inspection Edema: 1+ Arm (L), 1+ Arm (R), 1+ Leg (L), 1+ Leg (R), 1+ Pedal (L), 1+ Pedal ( R), 1+ Generalized Edema: trace edema Neurologic: responsive, motor weakness Skin: normal pigmentation, warm/dry Fermín Griggs DO Dec 24, 2019 14:01
[2019-12-24 16:00] VITALS: BP 105/62
--- NOTE | 2019-12-24 19:38 | NUR ---
HAND-OFF: Report given to ONEL Bliss.
[2019-12-24 20:00] VITALS: BP 137/80
[2019-12-24] MEDS: Atorvastatin 80mg tab ORAL SCH (21:20)
[2019-12-25] VITALS: BP 126/76
[2019-12-25 04:00] VITALS: BP 127/71
--- NOTE | 2019-12-25 05:00 | Progress Note ---
DATE: 12/24/2019 SUBJECTIVE: The patient is doing well. No behavior issues. Calm. The patient is not leaving the hospital, believes that his medical situation is not being addressed. The patient has poor insight. ASSESSMENT: 1. Anxiety disorder. 2. Rule out somatoform disorder. 3. Rule out malingering. PLAN: 1. Continue current psychotropic meds. 2. Encouraged her to go to SNF. 3. Provide the patient with reality orientation and supportive therapy. Kiko Botello M.D. DR: MARY LOU JOB#: [id number] CC:
--- NOTE | 2019-12-25 06:35 | General Progress Note ---
Assessment/Plan Problem List: (1) Hypothyroid ICD Codes: E03.9 - Hypothyroidism, unspecified SNOMED: 62983409 (2) Acute exacerbation of CHF (congestive heart failure) ICD Codes: I50.9 - Heart failure, unspecified SNOMED: 860577577, 89508278831232 (3) Hyperglycemia ICD Codes: R73.9 - Hyperglycemia, unspecified SNOMED: 58241721 (4) Chest pain ICD Codes: R07.9 - Chest pain, unspecified SNOMED: 34551909 Status: stable, progressing Assessment/Plan: increase Levemir 60 to 66 units qam increase Novolog 30 to 33 units ac tid + sliding scale ac / hs continue Starlix 120 mg ac tid continue Januvia 100 mg daily continue Levothyroxine 50 mcg daily Subjective Allergies: Coded Allergies: No Known Allergies (Unverified , 12/08/19) Subjective events noted glucose values are elevated Item Value Date Time Bedside Blood Glucose 178 mg/dl H 12/24/19 2126 Bedside Blood Glucose 264 mg/dl H 12/24/19 1659 Bedside Blood Glucose 240 mg/dl H 12/24/19 1145 Bedside Blood Glucose 331 mg/dl H 12/24/19 0833 Bedside Blood Glucose 331 mg/dl H 12/24/19 0651 Objective Last 24 Hour Vital Signs Date Time Temp Pulse Resp B/P (MAP) Pulse Ox O2 Delivery O2 Flow Rate FiO2 12/25/19 00:00 98.1 77 18 126/76 (93) 95 12/24/19 21:21 72 137/80 12/24/19 21:00 Room Air 12/24/19 20:00 98.2 72 19 137/80 (99) 96 12/24/19 16:00 97.8 81 20 105/62 (76) 99 12/24/19 12:00 97.7 77 20 135/83 (100) 96 12/24/19 09:00 Room Air 12/24/19 08:32 73 127/73 12/24/19 08:31 127/73 12/24/19 08:00 98.2 73 18 127/73 (91) 96 Intake and Output 12/24/19 12/25/19 19:00 07:00 Intake Total 1680 ml 360 ml Balance 1680 ml 360 ml Intake Oral 1680 ml 360 ml # Voids 2 Laboratory Tests 12/25/19 04:55: White Blood Count [Pending], Red Blood Count [Pending], Hemoglobin [Pending], Hematocrit [Pending], Mean Corpuscular Volume [Pending], Mean Corpuscular Hemoglobin [Pending], Mean Corpuscular Hemoglobin Concent [Pending], Red Cell Distribution Width [Pending], Platelet Count [Pending], Mean Platelet Volume [ Pending], Neutrophils (%) (Auto) [Pending], Lymphocytes (%) (Auto) [Pending], Monocytes (%) (Auto) [Pending], Eosinophils (%) (Auto) [Pending], Basophils (%) (Auto) [Pending], Sodium Level [Pending], Potassium Level [Pending], Chloride Level [Pending], Carbon Dioxide Level [Pending], Blood Urea Nitrogen [Pending], Creatinine [Pending], Estimat Glomerular Filtration Rate [Pending], Glucose Level [Pending], Calcium Level [Pending] Height (Feet): 5 Height (Inches): 4.00 Weight (Pounds): 271 General Appearance: no apparent distress Neck: normal alignment Cardiovascular: normal rate Respiratory/Chest: lungs clear Abdomen: normal bowel sounds Objective Current Medications Medications (Trade) Dose Ordered Sig/Rodney Route PRN Reason Start Time Stop Time Status Last Admin Dose Admin Acetaminophen (Tylenol) 650 mg Q4H PRN ORAL T>100.5 12/13/19 09:45 01/07/20 06:14 Aspirin (Ecotrin) 81 mg DAILY ORAL 12/13/19 09:00 01/08/20 08:59 12/24/19 08:32 Atorvastatin Calcium (Lipitor) 80 mg BEDTIME ORAL 12/13/19 21:00 01/07/20 20:59 12/24/19 21:20 Bupropion HCl (Wellbutrin SR) 150 mg DAILY ORAL 12/13/19 09:00 01/10/20 08:59 12/24/19 08:32 Clopidogrel Bisulfate (Plavix) 75 mg DAILY ORAL 12/13/19 09:00 01/08/20 08:59 12/24/19 08:32 Dextrose (Dextrose 50%) 25 ml Q30M PRN IV Hypoglycemia 12/13/19 06:15 01/08/20 06:14 Dextrose (Dextrose 50%) 50 ml Q30M PRN IV Hypoglycemia 12/13/19 06:15 01/08/20 06:14 Furosemide (Lasix) 40 mg DAILY IV 12/22/19 09:00 01/21/20 08:59 12/24/19 08:32 Gabapentin (Neurontin) 300 mg BEDTIME ORAL 12/13/19 21:00 01/07/20 20:59 12/24/19 21:21 Gabapentin (Neurontin) 300 mg THREE TIMES A DAY ORAL 12/13/19 09:00 01/08/20 09:59 12/24/19 17:40 Insulin Aspart (NovoLOG) BEFORE MEALS AND HS SUBQ 12/13/19 06:30 01/07/20 16:29 12/24/19 21:26 Insulin Aspart (NovoLOG) 30 units NOVOTIAC SUBQ 12/22/19 16:50 01/08/20 06:29 12/24/19 16:59 Insulin Detemir (Levemir) 60 units DAILY SUBQ 12/22/19 09:00 01/08/20 08:59 12/24/19 08:33 Isosorbide Mononitrate (Imdur) 60 mg DAILY ORAL 12/13/19 09:00 01/11/20 08:59 12/24/19 08:31 Levothyroxine Sodium (Synthroid) 50 mcg DAILY@0630 ORAL 12/13/19 06:30 01/08/20 06:29 12/25/19 05:48 Lidocaine (Lidoderm 5% PATCH) 1 patch DAILY TDERMAL 12/13/19 09:00 01/08/20 09:59 12/24/19 08:33 Methocarbamol (Robaxin) 500 mg Q8H PRN ORAL muscle spasm 12/13/19 06:15 01/08/20 06:14 12/19/19 07:30 Metoprolol Tartrate (Lopressor) 25 mg EVERY 12 HOURS ORAL 12/13/19 09:00 01/07/20 20:59 12/24/19 21:21 Mirtazapine (Remeron) 7.5 mg BEDTIME ORAL 12/13/19 21:00 01/07/20 20:59 12/17/19 21:51 Morphine HCl (Morphine IR) 7.5 mg Q4H PRN ORAL For Pain 12/20/19 10:00 12/27/19 09:59 12/24/19 17:41 Nateglinide (Starlix) 120 mg THREE TIMES A DAY ORAL 12/13/19 09:00 01/05/20 12:59 12/24/19 17:40 Nitroglycerin (Ntg) 0.4 mg Q5M PRN SL Prn Chest Pain 12/13/19 06:05 01/09/20 17:59 12/23/19 13:38 Pantoprazole (Protonix) 40 mg DAILY ORAL 12/13/19 09:00 01/08/20 08:59 12/24/19 08:31 Sitagliptin Phosphate (Januvia) 100 mg ACBREAKFAST ORAL 12/13/19 06:30 01/08/20 06:29 12/25/19 05:48 Shon Maldonado MD Dec 25, 2019 06:35
[2019-12-25] MEDS: NovoLOG Insulin Flexpen SUBQ SCH ×7 (06:41→20:31)
[2019-12-25 07:01] LABS: ANION GAP 7 mmol/L (5-15); BLOOD UREA NITROGEN 36 mg/dL (7-18); CALCIUM 9.2 MG/DL (8.5-10.1); CARBON DIOXIDE 31 MMOL/L (21-32); CHLORIDE 101 MMOL/L (98-107); CREATININE 1.2 MG/DL (0.55-1.30); POTASSIUM 4.7 MMOL/L (3.5-5.1); SODIUM 138 MMOL/L (136-145)
[2019-12-25 07:04] LABS: EOSINOPHILS % (AUTO) 3.3 % (0.0-3.0); HEMATOCRIT 34.3 % (42.0-52.0); MEAN CORPUSCULAR VOLUME 91 FL (80-99); MONOCYTES % (AUTO) 10.4 % (1.0-10.0); NEUTROPHILS % (AUTO) 61.3 % (45.0-75.0); PLATELET COUNT 266 K/UL (150-450); RED BLOOD COUNT 3.77 M/UL (4.70-6.10); RED CELL DISTRIBUTION WIDTH 12.2 % (11.6-14.8)
[2019-12-25] MEDS: Morphine IR 15mg tab ORAL PRN ×2 (07:47→17:11)
--- NOTE | 2019-12-25 07:48 | NUR ---
NURSE NOTES: AWAKE/ALERT. C/O BACK PAIN. SCALE 10/10. GIVEN MORPHINE IR 7.5MG PO. WILL MONITOR PT.
[2019-12-25 08:00] VITALS: BP 139/90
--- NOTE | 2019-12-25 08:04 | NUR ---
NURSE NOTES: Received report from Pan Madden, pt stable with no s/s of respiratory distress , a/ox4, denies any pain or discomfort , pt has a R hand 24g hep locked colostomy dressing intact on L lower Quad. Will continue to monitor
--- NOTE | 2019-12-25 08:24 | General Progress Note ---
Assessment/Plan Assessment/Plan: (1) Lumbar degenerative disk disease (2) Lumbar radiculopathy (3) Lumbar spondylosis (4) H/o polysubstance abuse Patient will be continued on Morphine as needed. D/w Dr. Bull and he concurred. Subjective Date patient seen: Dec 25, 2019 Time patient seen: 07:15 - am Allergies: Coded Allergies: No Known Allergies (Unverified , 12/08/19) Subjective Constitutional: Reports: no symptoms HEENT: Reports: no symptoms Cardiovascular: Reports: no symptoms Respiratory: Reports: no symptoms Gastrointestinal/Abdominal: Reports: no symptoms Genitourinary: Reports: no symptoms Neurologic/Psychiatric: Reports: no symptoms Endocrine: Reports: no symptoms Hematologic/Lymphatic: Reports: no symptoms Subjective Patient is in bed and reports no changes in his pain and it has been tolerated on the Morphine. He is laying in bed and shows no signs of pain or distress. Objective Last 24 Hour Vital Signs Date Time Temp Pulse Resp B/P (MAP) Pulse Ox O2 Delivery O2 Flow Rate FiO2 12/25/19 08:17 98.1 12/25/19 04:00 98.1 76 18 127/71 (89) 96 12/25/19 00:00 98.1 77 18 126/76 (93) 95 12/24/19 21:21 72 137/80 12/24/19 21:00 Room Air 12/24/19 20:00 98.2 72 19 137/80 (99) 96 12/24/19 16:00 97.8 81 20 105/62 (76) 99 12/24/19 12:00 97.7 77 20 135/83 (100) 96 12/24/19 09:00 Room Air 12/24/19 08:32 73 127/73 12/24/19 08:31 127/73 Intake and Output 12/24/19 12/25/19 19:00 07:00 Intake Total 1680 ml 360 ml Balance 1680 ml 360 ml Intake Oral 1680 ml 360 ml # Voids 2 Laboratory Tests 12/25/19 04:55: White Blood Count 9.0, Red Blood Count 3.77L, Hemoglobin 12.0L, Hematocrit 34.3L , Mean Corpuscular Volume 91, Mean Corpuscular Hemoglobin 31.8H, Mean Corpuscular Hemoglobin Concent 34.9, Red Cell Distribution Width 12.2, Platelet Count 266, Mean Platelet Volume 5.7L, Neutrophils (%) (Auto) 61.3, Lymphocytes ( %) (Auto) 24.0, Monocytes (%) (Auto) 10.4H, Eosinophils (%) (Auto) 3.3H, Basophils (%) (Auto) 1.0, Sodium Level 138, Potassium Level 4.7, Chloride Level 101, Carbon Dioxide Level 31, Anion Gap 7, Blood Urea Nitrogen 36H, Creatinine 1.2, Estimat Glomerular Filtration Rate > 60, Glucose Level 261H, Calcium Level 9.2 Height (Feet): 5 Height (Inches): 4.00 Weight (Pounds): 273 Objective General Appearance: no apparent distress, alert EENT: PERRL/EOMI, normal ENT inspection Neck: non-tender, normal alignment Cardiovascular: normal rate, regular rhythm Respiratory/Chest: lungs clear, normal breath sounds Abdomen: non tender, soft Extremities: non-tender Edema: no edema noted Generalized Neurologic: alert, oriented x 3 Skin: warm/dry Steve Walker Dec 25, 2019 08:24
[2019-12-25] MEDS: BuPROPion SR 150mg tab ORAL SCH (08:40)
[2019-12-25] MEDS: Aspirin EC 81mg tab ORAL SCH (08:41)
[2019-12-25] MEDS: Imdur 30mg tab ORAL SCH (08:41)
[2019-12-25] MEDS: Levemir Flexpen SUBQ SCH (09:16)
--- NOTE | 2019-12-25 09:43 | General Progress Note ---
Assessment/Plan Problem List: (1) Diabetes ICD Codes: E11.9 - Type 2 diabetes mellitus without complications SNOMED: 07211655 (2) HTN (hypertension) ICD Codes: I10 - Essential (primary) hypertension SNOMED: 46481064 (3) Malnutrition ICD Codes: E46 - Unspecified protein-calorie malnutrition SNOMED: 91725895 (4) Chest pain ICD Codes: R07.9 - Chest pain, unspecified SNOMED: 52368469 (5) Hyperglycemia ICD Codes: R73.9 - Hyperglycemia, unspecified SNOMED: 51514070 (6) Pain ICD Codes: R52 - Pain, unspecified SNOMED: 79355488 (7) Acute exacerbation of CHF (congestive heart failure) ICD Codes: I50.9 - Heart failure, unspecified SNOMED: 994414795, 71174839558921 (8) Hypothyroid ICD Codes: E03.9 - Hypothyroidism, unspecified SNOMED: 10429647 Status: stable, progressing Assessment/Plan: pt diet bp pain control dc if clear by cardio and neuro cbc bmp am Subjective Constitutional: Reports: weakness Allergies: Coded Allergies: No Known Allergies (Unverified , 12/08/19) All Systems: reviewed and negative except above Subjective sl anxious in bed c/o foot swelling Objective Last 24 Hour Vital Signs Date Time Temp Pulse Resp B/P (MAP) Pulse Ox O2 Delivery O2 Flow Rate FiO2 12/25/19 09:40 Room Air 12/25/19 08:42 70 139/90 12/25/19 08:41 139/90 12/25/19 08:17 98.1 12/25/19 08:00 98.0 70 18 139/90 (106) 93 12/25/19 04:00 98.1 76 18 127/71 (89) 96 12/25/19 00:00 98.1 77 18 126/76 (93) 95 12/24/19 21:21 72 137/80 12/24/19 21:00 Room Air 12/24/19 20:00 98.2 72 19 137/80 (99) 96 12/24/19 16:00 97.8 81 20 105/62 (76) 99 12/24/19 12:00 97.7 77 20 135/83 (100) 96 Intake and Output 12/24/19 12/25/19 19:00 07:00 Intake Total 1680 ml 360 ml Balance 1680 ml 360 ml Intake Oral 1680 ml 360 ml # Voids 2 Laboratory Tests 12/25/19 04:55: White Blood Count 9.0, Red Blood Count 3.77L, Hemoglobin 12.0L, Hematocrit 34.3L , Mean Corpuscular Volume 91, Mean Corpuscular Hemoglobin 31.8H, Mean Corpuscular Hemoglobin Concent 34.9, Red Cell Distribution Width 12.2, Platelet Count 266, Mean Platelet Volume 5.7L, Neutrophils (%) (Auto) 61.3, Lymphocytes ( %) (Auto) 24.0, Monocytes (%) (Auto) 10.4H, Eosinophils (%) (Auto) 3.3H, Basophils (%) (Auto) 1.0, Sodium Level 138, Potassium Level 4.7, Chloride Level 101, Carbon Dioxide Level 31, Anion Gap 7, Blood Urea Nitrogen 36H, Creatinine 1.2, Estimat Glomerular Filtration Rate > 60, Glucose Level 261H, Calcium Level 9.2 Height (Feet): 5 Height (Inches): 4.00 Weight (Pounds): 273 General Appearance: lethargic EENT: normal ENT inspection Neck: normal alignment Cardiovascular: normal peripheral pulses, normal rate, regular rhythm Respiratory/Chest: chest wall non-tender, lungs clear, normal breath sounds Abdomen: normal bowel sounds, non tender, soft Extremities: normal inspection Edema: 1+ Arm (L), 1+ Arm (R), 1+ Leg (L), 1+ Leg (R), 1+ Pedal (L), 1+ Pedal ( R), 1+ Generalized Edema: trace edema Neurologic: motor weakness Skin: normal pigmentation, warm/dry Fermín Griggs DO Dec 25, 2019 09:43
[2019-12-25 12:00] VITALS: BP 130/76
--- NOTE | 2019-12-25 12:10 | NUR ---
*-* CASE MANAGEMENT NOTES *-* PATIENT HAS APPEALED HIS DISCHARGE WITH MEDICARE CASE # [id number] CASE IS STILL PENDING AT THIS TIME
[2019-12-25 16:00] VITALS: BP 110/42
--- NOTE | 2019-12-25 16:16 | NUR ---
*-*DISCHARGE PLANNING*-* PATIENT HAS BEEN REFERRED TO: [facility] P: [phone] F: [phone] [facility] P: [phone] F: [phone] *-*CLINICALS FAXED*-*
--- NOTE | 2019-12-25 16:50 | NUR ---
NURSE NOTES: DR HEBERT CALLED TO FOLLOW UP ON PT'S NEURO CONSULT AND CLEARANCE FOR DISCHARGE. STATES WILL COME SEE PT.
--- NOTE | 2019-12-25 17:00 | NUR ---
[facility] AGENT: REVIEW 12/25/19 SI: CHF EXACERBATION. HYPERGLYCEMIA. CHEST PAIN 98.5 77 18 110/42 95% ON RA H/H 12.0/34.3 BUN 36 BG 261 IS: IV LASIX BID IMDUR PO QD PLAVIX PO QD GABAPENTIN PO TID LOPRESSOR PO BID PROTONIX PO QD ASPIRIN PO QD LIPITOR PO QHS WELLBUTRIN SR PO QD NOVOLOG SQ AC&HS + SS STARLIX PO TID LEVEMIR SQ QD JANUVIA PO AC :TRANSFER 3E MED SURG UNIT PLAN: PATIENT STILL COMPLAINING OF SWELLING TO LEGS AND CHEST PAIN PATIENT UP IN CHAIR APPEAL STILL -DENIED PATIENT MADE AWARE OF FINANCIAL OBLIGATION CLINICALS SENT TO OTHER SNF PER MD PATIENT APPEALED DISCHARGE AGAIN
--- NOTE | 2019-12-25 17:22 | NUR ---
*-*DISCHARGE PLANNING*-* PATIENT HAS BEEN REFERRED TO: [facility] P: [phone] F: [phone] [facility] P: [phone] F: [phone] [facility] P: [phone] F: [phone] *-*CLINICALS FAXED*-*
--- NOTE | 2019-12-25 18:55 | NUR ---
NURSE NOTES: resting in bed. in no apparent distress.
--- NOTE | 2019-12-25 19:00 | NUR ---
NURSE NOTES: PT DOWN IN XRAY FOR MRI LSPINE NO CONTRAST.
--- NOTE | 2019-12-25 19:29 | NUR ---
HAND-OFF: Report given to pau wilder rn.
--- NOTE | 2019-12-25 19:30 | NUR ---
NURSE NOTES: Received report from ONEL Moore. Pt still downstairs for MRI procedure.
--- NOTE | 2019-12-25 19:50 | NUR ---
NURSE NOTES: Pt came back from MRI procedure. A&ox4, in room air. No s/s of acute distress & c/o 8/10 pain. Will give PRN pain med when due & pt verbalized understanding. IV site intact & S/L'd. Plan of care discussed.
[2019-12-25 20:00] VITALS: BP 119/68
[2019-12-25] MEDS: Atorvastatin 80mg tab ORAL SCH (20:24)
--- NOTE | 2019-12-25 20:45 | Consultation ---
DATE OF CONSULTATION: 12/24/2019 NEUROLOGIC CONSULTATION CONSULTING PHYSICIAN: Daniele Ta M.D. HISTORY OF PRESENT ILLNESS: This 54-year-old right-handed man who was admitted with chest pain, hyperglycemia, low back pain with history of kidney stones. I was asked to see the patient to decide whether to discharge him. The patient has a history of diabetes type 2 for 9 years, coronary artery disease 9 years ago with quadruple bypass, history of hypertension, depression, and anxiety. The patient used to be a heavy smoker. Smoked for about 20 to 40 pack years, but quit about 20 years ago. He was never a drinker or used illegal drugs. The patient states that he has had low back pain for at least 2 months. Apparently, it does not radiate. Only has pain in his legs. Pain is throbbing and daily constant. It sounds like it is aggravated by walking. Two months ago, he had an ultrasound of his lower back and kidney stones were diagnosed. They were "quite large." He also had leg weakness for about a month associated with leg pain. There is no significant loss of bowel or bladder function. He has had paresthesias in his legs for at least 2 months. The patient was admitted to the hospital. He was anemic with slightly elevated indices with normal platelet count and normal white count. His chemistries reveal an elevated BUN in the 30s. GFR was generally normal. Blood sugar on admission was 421, it has gone down, but today it is 261. His creatinines are normal. The rest of his electrolytes are normal. The patient had an EKG, which was normal. The patient denies any seizures. He has had fainting spells in the past. He denies any memory loss. He has some trouble walking and complains of some weakness in his legs, but he has leg pain. He denies any neck pain. There is no diplopia. He does have blurred vision. There is no hearing loss or tinnitus. No dysarthria or aphasia. The patient's microbiology was negative. He was on 3 times a day. He is on insulin, levothyroxine sodium Remeron, nitroglycerin, Januvia, gabapentin 300 mg t.i.d., and continued on rest of his medicines. He denies any other illnesses. There is no family history of neurologic disease as far as they can tell. PAST MEDICAL HISTORY/PAST MEDICAL ILLNESSES: See above. SURGERIES: He had a quadruple bypass surgery. SOCIAL HISTORY: He is disabled. He is unmarried. Has one child. Does not know the health of the child. ALLERGIES: None. REVIEW OF SYSTEMS: Noncontributory. PHYSICAL EXAMINATION: GENERAL: He is a well-developed, obese man, sitting in a chair, in no acute distress. VITAL SIGNS: Blood pressure is 110/42, temperature is 98.5 degrees, pulse is 77 and regular, respiration rate is 18. NECK: There is no tenderness in his neck or muscle spasm. BACK: He has lumbar spine tenderness to percussion. NEUROLOGIC EXAMINATION: MENTAL STATUS: His language functions are normal. Mental status is grossly intact. CRANIAL NERVE EXAMINATION: Cranial nerves II through XII are intact. The pupils are about 6 mm, flat, round, light reactive. MUSCLE EXAMINATION: Muscle bulk is difficult to evaluate because of his obesity. Tone is normal. Strength is 5/5 in the upper extremities, possibly 5/5 in the lower extremities with questionable extensor hallucis longus weakness bilaterally. REFLEXES: Trace in the upper extremities, +2 right knee, +1 left knee, 0 at the ankles with downgoing toes on testing for Babinski response. COORDINATION: [id number], [id number] testing intact. GAIT AND STATION: He has an antalgic gait. Tandem walk cannot be done. Romberg, he sways a lot. Heel and toe walk cannot be done because of pain. SENSORY EXAMINATION: Pinprick is decreased in the lower extremities up to his knees. Proprioception is decreased in the lower extremities to at least the ankles. Fine touch is difficult to evaluate, it is probably decreased in the lower extremities. Proprioception is normal in the upper extremities along with pinprick and fine touch. IMPRESSION: The patient's back pain may be due to kidney stones. He also has sensory neuropathy and some asymmetric loss of reflexes in the lower extremities. Sensory neuropathy is most likely due to diabetes. His significant loss of proprioception could be due to low serum copper level or given his anemia, B12 deficiency. We should get at least B12, methylmalonic acid level. We are actually doing MRI scan of the back. I am going to discharge him at this time. PLAN: 1. MRI scan of the lumbar spine. 2. B12, methylmalonic acid level. Thank you for this interesting case. Daniele Ta MD DR: FACUNDO JOB#: [id number] CC:
[2019-12-26] VITALS: BP 120/67
[2019-12-26] MEDS: Morphine IR 15mg tab ORAL PRN ×4 (00:33→21:16)
--- NOTE | 2019-12-26 02:15 | Progress Note ---
DATE: 12/25/2019 SUBJECTIVE: The patient is sleeping better. Still anxious about going back to The patient is feeling hopeless. More depressed. MENTAL STATUS EXAMINATION: The patient is alert and oriented times self, place, situation, and date. Mood is depressed. Affect is constricted, congruent with mood. Thought process, linear and goal oriented. Thought content, no suicidal or homicidal ideation. ASSESSMENT: Stable. PLAN: 1. We will continue current medications. 2. Provide the patient with reality orientation. 3. Continue Remeron. 4. Continue Wellbutrin. Kiko Botello M.D. DR: PO JOB#: [id number] CC: KOLBY
--- NOTE | 2019-12-26 06:07 | General Progress Note ---
Assessment/Plan Problem List: (1) Hypothyroid ICD Codes: E03.9 - Hypothyroidism, unspecified SNOMED: 70921057 (2) Acute exacerbation of CHF (congestive heart failure) ICD Codes: I50.9 - Heart failure, unspecified SNOMED: 573302850, 51072590486613 (3) Hyperglycemia ICD Codes: R73.9 - Hyperglycemia, unspecified SNOMED: 96501401 (4) Chest pain ICD Codes: R07.9 - Chest pain, unspecified SNOMED: 77240848 Status: stable, progressing Assessment/Plan: continue Levemir 66 units qam continue Novolog 33 units ac tid + sliding scale ac / hs continue Starlix 120 mg ac tid continue Januvia 100 mg daily continue Levothyroxine 50 mcg daily Subjective Allergies: Coded Allergies: No Known Allergies (Unverified , 12/08/19) All Systems: reviewed and negative except above Subjective events noted glucose values improved Item Value Date Time Bedside Blood Glucose 153 mg/dl H 12/25/19 2031 Bedside Blood Glucose 177 mg/dl H 12/25/19 1705 Bedside Blood Glucose 255 mg/dl H 12/25/19 1152 Bedside Blood Glucose 235 mg/dl H 12/25/19 0916 Objective Last 24 Hour Vital Signs Date Time Temp Pulse Resp B/P (MAP) Pulse Ox O2 Delivery O2 Flow Rate FiO2 12/26/19 00:00 97.4 79 18 120/67 (84) 97 12/25/19 21:00 Room Air 12/25/19 20:24 79 119/68 12/25/19 20:00 97.9 79 18 119/68 (85) 95 12/25/19 17:47 98.5 12/25/19 16:00 98.5 77 18 110/42 (64) 95 12/25/19 12:00 98.2 74 20 130/76 (94) 94 12/25/19 09:40 Room Air 12/25/19 08:42 70 139/90 12/25/19 08:41 139/90 12/25/19 08:00 98.0 70 18 139/90 (106) 93 Intake and Output 12/25/19 12/26/19 19:00 07:00 Intake Total 1450 ml Output Total 900 ml Balance 550 ml Intake Oral 1450 ml Output Urine Total 900 ml # Voids 3 Laboratory Tests 12/26/19 05:35: White Blood Count [Pending], Red Blood Count [Pending], Hemoglobin [Pending], Hematocrit [Pending], Mean Corpuscular Volume [Pending], Mean Corpuscular Hemoglobin [Pending], Mean Corpuscular Hemoglobin Concent [Pending], Red Cell Distribution Width [Pending], Platelet Count [Pending], Mean Platelet Volume [ Pending], Neutrophils (%) (Auto) [Pending], Lymphocytes (%) (Auto) [Pending], Monocytes (%) (Auto) [Pending], Eosinophils (%) (Auto) [Pending], Basophils (%) (Auto) [Pending], Sodium Level [Pending], Potassium Level [Pending], Chloride Level [Pending], Carbon Dioxide Level [Pending], Blood Urea Nitrogen [Pending], Creatinine [Pending], Estimat Glomerular Filtration Rate [Pending], Glucose Level [Pending], Calcium Level [Pending] Height (Feet): 5 Height (Inches): 4.00 Weight (Pounds): 273 General Appearance: no apparent distress Neck: normal alignment Cardiovascular: normal rate Respiratory/Chest: lungs clear Abdomen: normal bowel sounds Objective Current Medications Medications (Trade) Dose Ordered Sig/Rodney Route PRN Reason Start Time Stop Time Status Last Admin Dose Admin Acetaminophen (Tylenol) 650 mg Q4H PRN ORAL T>100.5 12/13/19 09:45 01/07/20 06:14 Aspirin (Ecotrin) 81 mg DAILY ORAL 12/13/19 09:00 01/08/20 08:59 12/25/19 08:41 Atorvastatin Calcium (Lipitor) 80 mg BEDTIME ORAL 12/13/19 21:00 01/07/20 20:59 12/25/19 20:24 Bupropion HCl (Wellbutrin SR) 150 mg DAILY ORAL 12/13/19 09:00 01/10/20 08:59 12/25/19 08:40 Clopidogrel Bisulfate (Plavix) 75 mg DAILY ORAL 12/13/19 09:00 01/08/20 08:59 12/25/19 08:41 Dextrose (Dextrose 50%) 25 ml Q30M PRN IV Hypoglycemia 12/13/19 06:15 01/08/20 06:14 Dextrose (Dextrose 50%) 50 ml Q30M PRN IV Hypoglycemia 12/13/19 06:15 01/08/20 06:14 Furosemide (Lasix) 40 mg DAILY IV 12/22/19 09:00 01/21/20 08:59 12/25/19 08:40 Gabapentin (Neurontin) 300 mg BEDTIME ORAL 12/13/19 21:00 01/07/20 20:59 12/25/19 20:23 Gabapentin (Neurontin) 300 mg THREE TIMES A DAY ORAL 12/13/19 09:00 01/08/20 09:59 12/25/19 17:33 Insulin Aspart (NovoLOG) BEFORE MEALS AND HS SUBQ 12/13/19 06:30 01/07/20 16:29 12/25/19 20:31 Insulin Aspart (NovoLOG) 33 units NOVOTIAC SUBQ 12/25/19 07:00 01/08/20 06:59 12/25/19 17:05 Insulin Detemir (Levemir) 66 units DAILY SUBQ 12/25/19 09:00 01/08/20 08:59 12/25/19 09:16 Isosorbide Mononitrate (Imdur) 60 mg DAILY ORAL 12/13/19 09:00 01/11/20 08:59 12/25/19 08:41 Levothyroxine Sodium (Synthroid) 50 mcg DAILY@0630 ORAL 12/13/19 06:30 01/08/20 06:29 12/26/19 05:39 Lidocaine (Lidoderm 5% PATCH) 1 patch DAILY TDERMAL 12/13/19 09:00 01/08/20 09:59 12/25/19 08:48 Methocarbamol (Robaxin) 500 mg Q8H PRN ORAL muscle spasm 12/13/19 06:15 01/08/20 06:14 12/19/19 07:30 Metoprolol Tartrate (Lopressor) 25 mg EVERY 12 HOURS ORAL 12/13/19 09:00 01/07/20 20:59 12/25/19 20:24 Mirtazapine (Remeron) 7.5 mg BEDTIME ORAL 12/13/19 21:00 01/07/20 20:59 12/17/19 21:51 Morphine HCl (Morphine IR) 7.5 mg Q4H PRN ORAL For Pain 12/20/19 10:00 12/27/19 09:59 12/26/19 05:43 Nateglinide (Starlix) 120 mg THREE TIMES A DAY ORAL 12/13/19 09:00 01/05/20 12:59 12/25/19 17:33 Nitroglycerin (Ntg) 0.4 mg Q5M PRN SL Prn Chest Pain 12/13/19 06:05 01/09/20 17:59 12/23/19 13:38 Pantoprazole (Protonix) 40 mg DAILY ORAL 12/13/19 09:00 01/08/20 08:59 12/25/19 08:42 Sitagliptin Phosphate (Januvia) 100 mg ACBREAKFAST ORAL 12/13/19 06:30 01/08/20 06:29 12/26/19 05:39 Shon Maldonado MD Dec 26, 2019 06:07
[2019-12-26] MEDS: NovoLOG Insulin Flexpen SUBQ SCH ×7 (06:47→21:24)
[2019-12-26 06:51] LABS: ANION GAP 10 mmol/L (5-15); BLOOD UREA NITROGEN 40 mg/dL (7-18); CALCIUM 9.1 MG/DL (8.5-10.1); CARBON DIOXIDE 29 MMOL/L (21-32); CHLORIDE 99 MMOL/L (98-107); CREATININE 1.2 MG/DL (0.55-1.30); POTASSIUM 4.3 MMOL/L (3.5-5.1); SODIUM 138 MMOL/L (136-145)
[2019-12-26 07:00] LABS: BASOPHILS % (AUTO) 1.1 % (0.0-2.0); EOSINOPHILS % (AUTO) 2.8 % (0.0-3.0); HEMATOCRIT 38.3 % (42.0-52.0); HEMOGLOBIN 13.3 G/DL (14.2-18.0); LYMPHOCYTES % (AUTO) 22.9 % (20.0-45.0); MEAN CORPUSCULAR VOLUME 92 FL (80-99); MONOCYTES % (AUTO) 7.6 % (1.0-10.0); NEUTROPHILS % (AUTO) 65.7 % (45.0-75.0); PLATELET COUNT 322 K/UL (150-450); RED BLOOD COUNT 4.18 M/UL (4.70-6.10); RED CELL DISTRIBUTION WIDTH 12.6 % (11.6-14.8)
--- NOTE | 2019-12-26 07:30 | NUR ---
HAND-OFF: Report given to ONEL Hickey. Rounds done.
[2019-12-26 08:00] VITALS: BP 127/71
--- NOTE | 2019-12-26 08:04 | NUR ---
NURSE NOTES: Patient awake and alert and oriented,respirations unlabored.Patient sitting up ate breakfast.Call light within reach.
[2019-12-26] MEDS: Aspirin EC 81mg tab ORAL SCH (08:58)
[2019-12-26] MEDS: Imdur 30mg tab ORAL SCH (08:59)
[2019-12-26] MEDS: BuPROPion SR 150mg tab ORAL SCH (09:00)
[2019-12-26] MEDS: Levemir Flexpen SUBQ SCH (09:10)
--- NOTE | 2019-12-26 09:20 | General Progress Note ---
Assessment/Plan Assessment/Plan: (1) Lumbar degenerative disk disease (2) Lumbar radiculopathy (3) Lumbar spondylosis (4) H/o polysubstance abuse Patient will be continued on Morphine as needed. D/w Dr. Bull and he concurred. Subjective Date patient seen: Dec 26, 2019 Time patient seen: 08:15 - am Allergies: Coded Allergies: No Known Allergies (Unverified , 12/08/19) Subjective Constitutional: Reports: no symptoms HEENT: Reports: no symptoms Cardiovascular: Reports: no symptoms Respiratory: Reports: no symptoms Gastrointestinal/Abdominal: Reports: no symptoms Genitourinary: Reports: no symptoms Neurologic/Psychiatric: Reports: no symptoms Endocrine: Reports: no symptoms Hematologic/Lymphatic: Reports: no symptoms Subjective Patient is sitting up having used 5 doses of the Morphine in the last 24hrs. He reports no changes and no new complaints at this time. States he is happy here due to reduced stress. Objective Last 24 Hour Vital Signs Date Time Temp Pulse Resp B/P (MAP) Pulse Ox O2 Delivery O2 Flow Rate FiO2 12/26/19 08:59 89 134/88 12/26/19 08:59 134/88 12/26/19 00:00 97.4 79 18 120/67 (84) 97 12/25/19 21:00 Room Air 12/25/19 20:24 79 119/68 12/25/19 20:00 97.9 79 18 119/68 (85) 95 12/25/19 17:47 98.5 12/25/19 16:00 98.5 77 18 110/42 (64) 95 12/25/19 12:00 98.2 74 20 130/76 (94) 94 12/25/19 09:40 Room Air Intake and Output 12/25/19 12/26/19 19:00 07:00 Intake Total 1450 ml 1320 ml Output Total 900 ml Balance 550 ml 1320 ml Intake Oral 1450 ml 1320 ml Output Urine Total 900 ml # Voids 3 4 Laboratory Tests 12/26/19 05:35: White Blood Count 10.0, Red Blood Count 4.18L, Hemoglobin 13.3L, Hematocrit 38.3L, Mean Corpuscular Volume 92, Mean Corpuscular Hemoglobin 31.9H, Mean Corpuscular Hemoglobin Concent 34.8, Red Cell Distribution Width 12.6, Platelet Count 322, Mean Platelet Volume 5.7L, Neutrophils (%) (Auto) 65.7, Lymphocytes ( %) (Auto) 22.9, Monocytes (%) (Auto) 7.6, Eosinophils (%) (Auto) 2.8, Basophils (%) (Auto) 1.1, Sodium Level 138, Potassium Level 4.3, Chloride Level 99, Carbon Dioxide Level 29, Anion Gap 10, Blood Urea Nitrogen 40H, Creatinine 1.2, Estimat Glomerular Filtration Rate > 60, Glucose Level 310H, Calcium Level 9.1 Height (Feet): 5 Height (Inches): 4.00 Weight (Pounds): 273 Objective General Appearance: no apparent distress, alert EENT: PERRL/EOMI, normal ENT inspection Neck: non-tender, normal alignment Cardiovascular: normal rate, regular rhythm Respiratory/Chest: lungs clear, normal breath sounds Abdomen: non tender, soft Extremities: non-tender Edema: no edema noted Generalized Neurologic: alert, oriented x 3 Skin: warm/dry Steve Walker Dec 26, 2019 09:20
--- NOTE | 2019-12-26 11:05 | Diagnostic Imaging Report ---
Indication: 54-year-old male inpatient with lower back pain Technique: Sagittal T1 and T2 fast spin echo, sagittal STIR, axial T1 and T2 fast spin-echo images of the lumbar spine Comparison: Findings: Bony alignment is normal. Vertebral body heights are preserved. The disc spaces are preserved. The vertebral marrow signal is normal. Conus medullaris terminates at the L1 level. At L4-5, there is minimal circumferential annular bulge. There is bilateral facet and ligamentum flavum hypertrophy. The combination of these results in borderline narrowing of the spinal canal at this level. The neural foramina are preserved. At L5-S1, there is trace broad-based posterior disc protrusion with a small high intensity zone within the protruding disc. This does not result in any significant spinal canal compromise or neural foraminal stenosis. The included extraspinal soft tissues are unremarkable. Impression: No acute bony trauma Minimal degenerative changes as described above. No evidence of significant neural impingement
[2019-12-26 12:00] VITALS: BP 149/125
--- NOTE | 2019-12-26 12:35 | NUR ---
*-*DISCHARGE PLANNING*-* PATIENT HAS BEEN REFERRED TO: [facility] P: [phone] F: [phone] [facility] P: [phone] F: [phone] [facility] P: [phone] F: [phone] [facility] P: [phone] F: [phone] [facility] P: [phone] F: [phone] *-* CLINICALS FAXED*-*
--- NOTE | 2019-12-26 14:58 | General Progress Note ---
Assessment/Plan Problem List: (1) Diabetes ICD Codes: E11.9 - Type 2 diabetes mellitus without complications SNOMED: 84567496 (2) HTN (hypertension) ICD Codes: I10 - Essential (primary) hypertension SNOMED: 32685378 (3) Malnutrition ICD Codes: E46 - Unspecified protein-calorie malnutrition SNOMED: 55797192 (4) Chest pain ICD Codes: R07.9 - Chest pain, unspecified SNOMED: 15364318 (5) Hyperglycemia ICD Codes: R73.9 - Hyperglycemia, unspecified SNOMED: 89571492 (6) Pain ICD Codes: R52 - Pain, unspecified SNOMED: 40767613 (7) Acute exacerbation of CHF (congestive heart failure) ICD Codes: I50.9 - Heart failure, unspecified SNOMED: 017257880, 20276660692196 (8) Hypothyroid ICD Codes: E03.9 - Hypothyroidism, unspecified SNOMED: 37170300 Status: stable, progressing Assessment/Plan: pt diet bp pain control dc if clear by cardio and neuro cbc bmp am Subjective Constitutional: Reports: weakness Allergies: Coded Allergies: No Known Allergies (Unverified , 12/08/19) All Systems: reviewed and negative except above Subjective sl anxious in bed c/o foot swelling Objective Last 24 Hour Vital Signs Date Time Temp Pulse Resp B/P (MAP) Pulse Ox O2 Delivery O2 Flow Rate FiO2 12/26/19 12:00 97.6 84 20 149/125 (133) 98 12/26/19 09:00 Room Air 12/26/19 08:59 89 134/88 12/26/19 08:59 134/88 12/26/19 08:00 97.3 79 20 127/71 (89) 98 12/26/19 00:00 97.4 79 18 120/67 (84) 97 12/25/19 21:00 Room Air 12/25/19 20:24 79 119/68 12/25/19 20:00 97.9 79 18 119/68 (85) 95 12/25/19 17:47 98.5 12/25/19 16:00 98.5 77 18 110/42 (64) 95 Intake and Output 12/25/19 12/26/19 19:00 07:00 Intake Total 1450 ml 1320 ml Output Total 900 ml Balance 550 ml 1320 ml Intake Oral 1450 ml 1320 ml Output Urine Total 900 ml # Voids 3 4 Laboratory Tests 12/26/19 05:35: White Blood Count 10.0, Red Blood Count 4.18L, Hemoglobin 13.3L, Hematocrit 38.3L, Mean Corpuscular Volume 92, Mean Corpuscular Hemoglobin 31.9H, Mean Corpuscular Hemoglobin Concent 34.8, Red Cell Distribution Width 12.6, Platelet Count 322, Mean Platelet Volume 5.7L, Neutrophils (%) (Auto) 65.7, Lymphocytes ( %) (Auto) 22.9, Monocytes (%) (Auto) 7.6, Eosinophils (%) (Auto) 2.8, Basophils (%) (Auto) 1.1, Sodium Level 138, Potassium Level 4.3, Chloride Level 99, Carbon Dioxide Level 29, Anion Gap 10, Blood Urea Nitrogen 40H, Creatinine 1.2, Estimat Glomerular Filtration Rate > 60, Glucose Level 310H, Calcium Level 9.1 Height (Feet): 5 Height (Inches): 4.00 Weight (Pounds): 273 General Appearance: lethargic EENT: normal ENT inspection Neck: normal alignment Cardiovascular: normal peripheral pulses, normal rate, regular rhythm Respiratory/Chest: chest wall non-tender, lungs clear, normal breath sounds Abdomen: normal bowel sounds, non tender, soft Extremities: normal inspection Edema: 1+ Arm (L), 1+ Arm (R), 1+ Leg (L), 1+ Leg (R), 1+ Pedal (L), 1+ Pedal ( R), 1+ Generalized Edema: trace edema Neurologic: responsive, motor weakness Skin: normal pigmentation, warm/dry Fermín Griggs DO Dec 26, 2019 14:58
[2019-12-26 16:00] VITALS: BP 129/80
[2019-12-26] MEDS: Nitroglycerin Subl 0.4mg tab SL PRN ×2 (17:29→17:54)
--- NOTE | 2019-12-26 17:32 | NUR ---
NURSE NOTES: Patient complaining of chest pain,patient requesting nitroglycerin tablet.Bp 109/54,heart rate 81,02 sats 98% on room air.Nitoglycerin 0.4mg SL given will monitor.
--- NOTE | 2019-12-26 19:30 | Progress Note ---
DATE: 12/26/2019 SUBJECTIVE: The patient is being discharged and he is in denial about his mental and medical condition. The patient has poor insight into his current condition. The patient believes that he is not getting medical need and there is something serious going on with him. MENTAL STATUS EXAMINATION: Alert and oriented times self, place, situation, and date. Mood is neutral. Affect is constricted. Congruent with mood. Thought process is concrete. Thought content, no suicidal or homicidal ideation. Cognition is intact. Insight and judgment. ASSESSMENT: Major depressive disorder, rule out malingering. PLAN: 1. Continue current psychotropic medications. 2. Provide the patient with reality orientation. Kiko Botello M.D. DR: Karen JOB#: [id number] CC:
--- NOTE | 2019-12-26 19:35 | NUR ---
NURSE NOTES: Received report & pt from ONEL Hickey. Pt up & walking around room, a&ox4, in room air. No s/s of acute distress & no c/o pain at this time. IV site intact & S/L'd. Plan of care discussed.
--- NOTE | 2019-12-26 19:56 | NUR ---
NURSE NOTES: DR Guthrie aware of patient complaint of chest pain and aware that patient received nitroglycerin as ordered although patient only wanted 2 dose of the nitroglycerin . No new order received,.patient was able to sit up in the chair and wanted to eat dinner.
[2019-12-26 20:00] VITALS: BP 113/59
--- NOTE | 2019-12-26 20:01 | NUR ---
HAND-OFF: Report given to Sun Walker RN.
[2019-12-26] MEDS: Atorvastatin 80mg tab ORAL SCH (21:15)
--- NOTE | 2019-12-26 23:23 | NUR ---
NURSE NOTES: Pt's B/L leg assessed. b/l 2+ pitting edema noted. Pt states that they're more swollen than before. Pt has lasix 40mg IV daily. Per pt, he doesn't urinate a lot & is requesting to increase lasix dosage/frequency. Informed Dr. Guthrie of the above concern & received a new order for Lasix 40mg IV BID for 4 doses then Lasix 40mg PO daily. Orders carried out. Pt made aware of MD's new orders.
[2019-12-27] VITALS (7 sets, daily range): BP systolic 107–150; BP diastolic 57–91
[2019-12-27] MEDS: Morphine IR 15mg tab ORAL PRN (03:23)
--- NOTE | 2019-12-27 06:29 | General Progress Note ---
Assessment/Plan Problem List: (1) Hypothyroid ICD Codes: E03.9 - Hypothyroidism, unspecified SNOMED: 16114408 (2) Acute exacerbation of CHF (congestive heart failure) ICD Codes: I50.9 - Heart failure, unspecified SNOMED: 398595626, 42348947981101 (3) Hyperglycemia ICD Codes: R73.9 - Hyperglycemia, unspecified SNOMED: 94002223 (4) Chest pain ICD Codes: R07.9 - Chest pain, unspecified SNOMED: 00145364 Status: stable, progressing Assessment/Plan: continue Levemir 66 units qam continue Novolog 33 units ac tid + sliding scale ac / hs continue Starlix 120 mg ac tid continue Januvia 100 mg daily continue Levothyroxine 50 mcg daily Subjective Allergies: Coded Allergies: No Known Allergies (Unverified , 12/08/19) All Systems: reviewed and negative except above Subjective events noted spike is glucose due to regular juice Item Value Date Time Bedside Blood Glucose 311 mg/dl H 12/27/19 0624 Bedside Blood Glucose 184 mg/dl H 12/26/19 2124 Bedside Blood Glucose 151 mg/dl H 12/26/19 1828 Bedside Blood Glucose 194 mg/dl H 12/26/19 1236 Bedside Blood Glucose 211 mg/dl H 12/26/19 0910 Bedside Blood Glucose 288 mg/dl H 12/26/19 0648 Objective Last 24 Hour Vital Signs Date Time Temp Pulse Resp B/P (MAP) Pulse Ox O2 Delivery O2 Flow Rate FiO2 12/27/19 04:00 97.5 90 18 109/64 (79) 96 12/27/19 00:00 98.1 75 20 107/57 (74) 98 12/26/19 21:15 77 113/59 12/26/19 21:00 Room Air 12/26/19 20:00 98.2 77 20 113/59 (77) 94 12/26/19 17:54 120/67 12/26/19 17:29 109/54 12/26/19 16:00 98.2 77 20 129/80 (96) 98 77 12/26/19 12:00 97.6 84 20 149/125 (133) 98 12/26/19 09:00 Room Air 12/26/19 08:59 89 134/88 12/26/19 08:59 134/88 12/26/19 08:00 97.3 79 20 127/71 (89) 98 Intake and Output 12/26/19 12/27/19 19:00 07:00 Output Total 500 ml Balance -500 ml Output Urine Total 500 ml Laboratory Tests 12/27/19 05:40: White Blood Count [Pending], Red Blood Count [Pending], Hemoglobin [Pending], Hematocrit [Pending], Mean Corpuscular Volume [Pending], Mean Corpuscular Hemoglobin [Pending], Mean Corpuscular Hemoglobin Concent [Pending], Red Cell Distribution Width [Pending], Platelet Count [Pending], Mean Platelet Volume [ Pending], Neutrophils (%) (Auto) [Pending], Lymphocytes (%) (Auto) [Pending], Monocytes (%) (Auto) [Pending], Eosinophils (%) (Auto) [Pending], Basophils (%) (Auto) [Pending], Sodium Level [Pending], Potassium Level [Pending], Chloride Level [Pending], Carbon Dioxide Level [Pending], Blood Urea Nitrogen [Pending], Creatinine [Pending], Estimat Glomerular Filtration Rate [Pending], Glucose Level [Pending], Calcium Level [Pending] Height (Feet): 5 Height (Inches): 4.00 Weight (Pounds): 273 General Appearance: no apparent distress Cardiovascular: normal peripheral pulses Respiratory/Chest: lungs clear Abdomen: normal bowel sounds Pelvis: normal external exam Objective Current Medications Medications (Trade) Dose Ordered Sig/Rodney Route PRN Reason Start Time Stop Time Status Last Admin Dose Admin Acetaminophen (Tylenol) 650 mg Q4H PRN ORAL T>100.5 12/13/19 09:45 01/07/20 06:14 Aspirin (Ecotrin) 81 mg DAILY ORAL 12/13/19 09:00 01/08/20 08:59 12/26/19 08:58 Atorvastatin Calcium (Lipitor) 80 mg BEDTIME ORAL 12/13/19 21:00 01/07/20 20:59 12/26/19 21:15 Bupropion HCl (Wellbutrin SR) 150 mg DAILY ORAL 12/13/19 09:00 01/10/20 08:59 12/26/19 09:00 Clopidogrel Bisulfate (Plavix) 75 mg DAILY ORAL 12/13/19 09:00 01/08/20 08:59 12/26/19 09:00 Dextrose (Dextrose 50%) 25 ml Q30M PRN IV Hypoglycemia 12/13/19 06:15 01/08/20 06:14 Dextrose (Dextrose 50%) 50 ml Q30M PRN IV Hypoglycemia 12/13/19 06:15 01/08/20 06:14 Furosemide (Lasix) 40 mg BID IV 12/27/19 09:00 12/28/19 22:00 Furosemide (Lasix) 40 mg DAILY ORAL 12/29/19 09:00 01/28/20 08:59 Gabapentin (Neurontin) 300 mg BEDTIME ORAL 12/13/19 21:00 01/07/20 20:59 12/26/19 21:16 Gabapentin (Neurontin) 300 mg THREE TIMES A DAY ORAL 12/13/19 09:00 01/08/20 09:59 12/26/19 18:34 Insulin Aspart (NovoLOG) BEFORE MEALS AND HS SUBQ 12/13/19 06:30 01/07/20 16:29 12/26/19 21:24 Insulin Aspart (NovoLOG) 33 units NOVOTIAC SUBQ 12/25/19 07:00 01/08/20 06:59 12/26/19 12:35 Insulin Detemir (Levemir) 66 units DAILY SUBQ 12/25/19 09:00 01/08/20 08:59 12/26/19 09:10 Isosorbide Mononitrate (Imdur) 60 mg DAILY ORAL 12/13/19 09:00 01/11/20 08:59 12/26/19 08:59 Levothyroxine Sodium (Synthroid) 50 mcg DAILY@0630 ORAL 12/13/19 06:30 01/08/20 06:29 12/27/19 05:39 Lidocaine (Lidoderm 5% PATCH) 1 patch DAILY TDERMAL 12/13/19 09:00 01/08/20 09:59 12/26/19 09:00 Methocarbamol (Robaxin) 500 mg Q8H PRN ORAL muscle spasm 12/13/19 06:15 01/08/20 06:14 12/19/19 07:30 Metoprolol Tartrate (Lopressor) 25 mg EVERY 12 HOURS ORAL 12/13/19 09:00 01/07/20 20:59 12/26/19 21:15 Mirtazapine (Remeron) 7.5 mg BEDTIME ORAL 12/13/19 21:00 01/07/20 20:59 12/17/19 21:51 Morphine HCl (Morphine IR) 7.5 mg Q4H PRN ORAL For Pain 12/20/19 10:00 12/27/19 09:59 12/27/19 03:23 Nateglinide (Starlix) 120 mg THREE TIMES A DAY ORAL 12/13/19 09:00 01/05/20 12:59 12/26/19 18:34 Nitroglycerin (Ntg) 0.4 mg Q5M PRN SL Prn Chest Pain 12/13/19 06:05 01/09/20 17:59 12/26/19 17:54 Pantoprazole (Protonix) 40 mg DAILY ORAL 12/13/19 09:00 01/08/20 08:59 12/26/19 09:00 Sitagliptin Phosphate (Januvia) 100 mg ACBREAKFAST ORAL 12/13/19 06:30 01/08/20 06:29 12/27/19 05:39 Shon Maldonado MD Dec 27, 2019 06:29
[2019-12-27] MEDS: NovoLOG Insulin Flexpen SUBQ SCH ×7 (06:45→21:03)
[2019-12-27 06:48] LABS: ANION GAP 13 mmol/L (5-15); BLOOD UREA NITROGEN 36 mg/dL (7-18); CALCIUM 9.4 MG/DL (8.5-10.1); CARBON DIOXIDE 25 MMOL/L (21-32); CHLORIDE 103 MMOL/L (98-107); CREATININE 1.2 MG/DL (0.55-1.30); POTASSIUM 4.5 MMOL/L (3.5-5.1); SODIUM 140 MMOL/L (136-145)
[2019-12-27 06:59] LABS: EOSINOPHILS % (AUTO) 3.1 % (0.0-3.0); HEMATOCRIT 34.5 % (42.0-52.0); LYMPHOCYTES % (AUTO) 20.2 % (20.0-45.0); MEAN CORPUSCULAR VOLUME 92 FL (80-99); MONOCYTES % (AUTO) 9.4 % (1.0-10.0); NEUTROPHILS % (AUTO) 66.2 % (45.0-75.0); PLATELET COUNT 273 K/UL (150-450); RED BLOOD COUNT 3.77 M/UL (4.70-6.10); RED CELL DISTRIBUTION WIDTH 12.6 % (11.6-14.8); WHITE BLOOD COUNT 8.3 K/UL (4.8-10.8)
--- NOTE | 2019-12-27 07:20 | NUR ---
NURSE NOTES: Received report from ONEL Garsia. Patient A&Ox4. On room air, no signs of distress or labored breathing. IV intact, patent, and saline locked. Patient sitting up in chair, eating breakfast. Will continue with plan of care.
--- NOTE | 2019-12-27 07:22 | NUR ---
HAND-OFF: Report given to ONEL Pickering. Rounds done, pt eating breakfast.
--- NOTE | 2019-12-27 09:03 | General Progress Note ---
Assessment/Plan Assessment/Plan: (1) Lumbar degenerative disk disease (2) Lumbar radiculopathy (3) Lumbar spondylosis (4) H/o polysubstance abuse Patient will be continued on Morphine as needed. D/w Dr. Bull and he concurred. Subjective Date patient seen: Dec 27, 2019 Time patient seen: 08:15 - am Allergies: Coded Allergies: No Known Allergies (Unverified , 12/08/19) Subjective Constitutional: Reports: no symptoms HEENT: Reports: no symptoms Cardiovascular: Reports: no symptoms Respiratory: Reports: no symptoms Gastrointestinal/Abdominal: Reports: no symptoms Genitourinary: Reports: no symptoms Neurologic/Psychiatric: Reports: no symptoms Endocrine: Reports: no symptoms Hematologic/Lymphatic: Reports: no symptoms Subjective Patient reports that the pain has been unchanged and is tolerated on the morphine 4 doses in the last 24hrs. He is sitting up in chair and making a storage box out of a tissue box. At this time he has no new complaints Objective Last 24 Hour Vital Signs Date Time Temp Pulse Resp B/P (MAP) Pulse Ox O2 Delivery O2 Flow Rate FiO2 12/27/19 08:00 97.8 92 20 142/81 (101) 94 12/27/19 04:00 97.5 90 18 109/64 (79) 96 12/27/19 00:00 98.1 75 20 107/57 (74) 98 12/26/19 21:15 77 113/59 12/26/19 21:00 Room Air 12/26/19 20:00 98.2 77 20 113/59 (77) 94 12/26/19 17:54 120/67 12/26/19 17:29 109/54 12/26/19 16:00 98.2 77 20 129/80 (96) 98 77 12/26/19 12:00 97.6 84 20 149/125 (133) 98 Intake and Output 12/26/19 12/27/19 19:00 07:00 Intake Total 1920 ml Output Total 500 ml Balance -500 ml 1920 ml Intake Oral 1920 ml Output Urine Total 500 ml # Voids 4 Laboratory Tests 12/27/19 05:40: White Blood Count 8.3, Red Blood Count 3.77L, Hemoglobin 12.0L, Hematocrit 34.5L , Mean Corpuscular Volume 92, Mean Corpuscular Hemoglobin 31.8H, Mean Corpuscular Hemoglobin Concent 34.7, Red Cell Distribution Width 12.6, Platelet Count 273, Mean Platelet Volume 5.5L, Neutrophils (%) (Auto) 66.2, Lymphocytes ( %) (Auto) 20.2, Monocytes (%) (Auto) 9.4, Eosinophils (%) (Auto) 3.1H, Basophils (%) (Auto) 1.0, Erythrocyte Sedimentation Rate [Pending], Sodium Level 140, Potassium Level 4.5, Chloride Level 103, Carbon Dioxide Level 25, Anion Gap 13, Blood Urea Nitrogen 36H, Creatinine 1.2, Estimat Glomerular Filtration Rate > 60, Glucose Level 338H, Calcium Level 9.4 Height (Feet): 5 Height (Inches): 4.00 Weight (Pounds): 273 Objective General Appearance: no apparent distress, alert EENT: PERRL/EOMI, normal ENT inspection Neck: non-tender, normal alignment Cardiovascular: normal rate, regular rhythm Respiratory/Chest: lungs clear, normal breath sounds Abdomen: non tender, soft Extremities: non-tender Edema: no edema noted Generalized Neurologic: alert, oriented x 3 Skin: warm/dry Steve Walker Dec 27, 2019 09:03
[2019-12-27] MEDS: BuPROPion SR 150mg tab ORAL SCH (09:47)
[2019-12-27] MEDS: Imdur 30mg tab ORAL SCH (09:48)
[2019-12-27] MEDS: Aspirin EC 81mg tab ORAL SCH (09:49)
[2019-12-27] MEDS ORDERED: Morphine IR 15mg tab ORAL PRN (10:00)
[2019-12-27] MEDS: Levemir Flexpen SUBQ SCH (10:06)
--- NOTE | 2019-12-27 11:50 | General Progress Note ---
Assessment/Plan Problem List: (1) Diabetes ICD Codes: E11.9 - Type 2 diabetes mellitus without complications SNOMED: 24685205 (2) HTN (hypertension) ICD Codes: I10 - Essential (primary) hypertension SNOMED: 29127870 (3) Malnutrition ICD Codes: E46 - Unspecified protein-calorie malnutrition SNOMED: 98833542 (4) Chest pain ICD Codes: R07.9 - Chest pain, unspecified SNOMED: 84621708 (5) Hyperglycemia ICD Codes: R73.9 - Hyperglycemia, unspecified SNOMED: 41845360 (6) Pain ICD Codes: R52 - Pain, unspecified SNOMED: 76668742 (7) Acute exacerbation of CHF (congestive heart failure) ICD Codes: I50.9 - Heart failure, unspecified SNOMED: 242011799, 43845777958870 (8) Hypothyroid ICD Codes: E03.9 - Hypothyroidism, unspecified SNOMED: 75863637 Status: stable, progressing Assessment/Plan: pt diet bp pain control dc if clear by cardio and neuro Subjective Constitutional: Reports: weakness Allergies: Coded Allergies: No Known Allergies (Unverified , 12/08/19) All Systems: reviewed and negative except above Subjective sl anxious in bed c/o foot swelling Objective Last 24 Hour Vital Signs Date Time Temp Pulse Resp B/P (MAP) Pulse Ox O2 Delivery O2 Flow Rate FiO2 12/27/19 09:49 92 142/81 12/27/19 09:48 142/81 12/27/19 08:00 97.8 92 20 142/81 (101) 94 12/27/19 04:00 97.5 90 18 109/64 (79) 96 12/27/19 00:00 98.1 75 20 107/57 (74) 98 12/26/19 21:15 77 113/59 12/26/19 21:00 Room Air 12/26/19 20:00 98.2 77 20 113/59 (77) 94 12/26/19 17:54 120/67 12/26/19 17:29 109/54 12/26/19 16:00 98.2 77 20 129/80 (96) 98 77 12/26/19 12:00 97.6 84 20 149/125 (133) 98 Intake and Output 12/26/19 12/27/19 19:00 07:00 Intake Total 1920 ml Output Total 500 ml Balance -500 ml 1920 ml Intake Oral 1920 ml Output Urine Total 500 ml # Voids 4 Laboratory Tests 12/27/19 05:40: White Blood Count 8.3, Red Blood Count 3.77L, Hemoglobin 12.0L, Hematocrit 34.5L , Mean Corpuscular Volume 92, Mean Corpuscular Hemoglobin 31.8H, Mean Corpuscular Hemoglobin Concent 34.7, Red Cell Distribution Width 12.6, Platelet Count 273, Mean Platelet Volume 5.5L, Neutrophils (%) (Auto) 66.2, Lymphocytes ( %) (Auto) 20.2, Monocytes (%) (Auto) 9.4, Eosinophils (%) (Auto) 3.1H, Basophils (%) (Auto) 1.0, Erythrocyte Sedimentation Rate 42H, Sodium Level 140, Potassium Level 4.5, Chloride Level 103, Carbon Dioxide Level 25, Anion Gap 13, Blood Urea Nitrogen 36H, Creatinine 1.2, Estimat Glomerular Filtration Rate > 60 , Glucose Level 338H, Calcium Level 9.4 Height (Feet): 5 Height (Inches): 4.00 Weight (Pounds): 273 General Appearance: alert EENT: normal ENT inspection Neck: normal alignment Cardiovascular: normal peripheral pulses, normal rate, regular rhythm Respiratory/Chest: chest wall non-tender, lungs clear, normal breath sounds Abdomen: normal bowel sounds, non tender, soft Extremities: normal inspection Edema: no edema noted Arm (L), no edema noted Arm (R), no edema noted Leg (L), no edema noted Leg (R), no edema noted Pedal (L), no edema noted Pedal (R), no edema noted Generalized Neurologic: responsive, motor weakness Skin: normal pigmentation, warm/dry Fermín Griggs DO Dec 27, 2019 11:50
--- NOTE | 2019-12-27 13:44 | NUR ---
RD ASSESSMENT & RECOMMENDATIONS SEE CARE ACTIVITY FOR COMPLETE ASSESSMENT DAILY ESTIMATED NEEDS: Needs based on DM, obesity, CHF/ 70kg abw 22-28 kcals/kg 6650-1895 total kcals 1-1.5 g protein/kg 70-105 g total protein 20-22 mL/kg 2805-9735 total fluid mLs NUTRITION DIAGNOSIS: Altered nutrition related lab values R/T diabetes, altered lipid metabolism as evidenced by elev BGs (338 310), POC glu (210 311 184 151 194), A1C of 10.2, elev triglyceride (290). CURRENT DIET:CCHO LOW, CARDIAC, DOUBLE PROTEIN PORTIONS PO DIET RECOMMENDATIONS: CCHO LOW, CARDIAC + double protein portions ADDITIONAL RECOMMENDATIONS: * DM diet ed provided on 12/09 -> diet ed re-attempted on 12/27 - pt not receptive * Monitor BGs closely, monitor adherence to diet * Monitor lytes w/ Lasix, replete as needed
--- NOTE | 2019-12-27 14:22 | NUR ---
CARD TABLE ATTENDANT: REVIEW 12/27/19 SI: CHF EXACERBATION. HYPERGLYCEMIA. CHEST PAIN 98.7 92 20 142/81 94% ON RA H/H 12.0/34.5 BUN 36 BG 338 IS: IV LASIX BID IMDUR PO QD PLAVIX PO QD GABAPENTIN PO TID LOPRESSOR PO BID PROTONIX PO QD ASPIRIN PO QD LIPITOR PO QHS WELLBUTRIN SR PO QD NOVOLOG SQ AC&HS + SS STARLIX PO TID LEVEMIR SQ QD JANUVIA PO AC :TRANSFER 3E MED SURG UNIT PLAN: PATIENT APPEALED DISCHARGE AGAIN PATIENT ACCEPTED TO [facility] PATIENT REFUSING TO DISCHARGE TO [facility]
--- NOTE | 2019-12-27 14:47 | NUR ---
DISCHARGE DISPOSITION: PLEASE READ PATIENT TO BE DISCHARGED TO [facility] [address] T: [phone]>> CALL FOR REPORT [facility] ETA [phone]- [phone] NOTIFIED CRN OF [place] REED TO FOLLOW CM ATTEMPTED TO CONTACT MOTHER SELINA BUSH [phone]>> PHONE [facility] UNABLE TO LEAVE VM TRANSFER PACKET TO BE DELIVERED
--- NOTE | 2019-12-27 16:44 | NUR ---
DISCHARGE PLANNED: PATIENT REFERRED TO [facility] F: [phone]
--- NOTE | 2019-12-27 16:45 | Progress Note ---
DATE: 12/27/2019 SUBJECTIVE: The patient is still complaining of lower back pain, pain in his legs. The MRI scan of the lumbar spine shows degenerative joint disease. No evidence of root compression. He states he has large kidney stones. This has not been evaluated yet at least here at this hospital. IMPRESSION: The patient's low back pain is probably related to degenerative joint disease of the lumbar spine or possibly kidney stones. I will obtain a sedimentation rate. His B12 has also remained in the low normal range. I am awaiting the methylmalonic acid level pernicious anemia and/or other causes of B12 deficiency. PLAN: 1. Orthopedic consultation. 2. Orthopedic evaluation. 3. Try to obtain outside studies of the kidney stones or nephrolithiasis. Daniele Ta MD DR: FACUNDO JOB#: [id number] CC:
--- NOTE | 2019-12-27 18:50 | NUR ---
NURSE NOTES: [facility] Spoke with Mallory and was told to call back in 10 minutes. Charge nurse aware.
--- NOTE | 2019-12-27 19:12 | NUR ---
NURSE NOTES: Gave report to Mallory of [facility].
--- NOTE | 2019-12-27 19:40 | NUR ---
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
--- NOTE | 2019-12-27 19:41 | NUR ---
HAND-OFF: Report given to ONEL Bliss. Rounds done, patient stable.
--- NOTE | 2019-12-27 20:10 | NUR ---
NURSE NOTES: Received report from Rn Ladan, pt stable with no s/s of respiratory distress on RA laying in bed ,pt is a/ox2, denies any pain or discomfort , pt has a R AC 20g hep locked.Pt is stable .bed in low locked position and call light with in reach
[2019-12-27] MEDS: Atorvastatin 80mg tab ORAL SCH (20:58)
[2019-12-27] MEDS: Nitroglycerin Subl 0.4mg tab SL PRN (21:15)
--- NOTE | 2019-12-27 22:00 | NUR ---
NURSE NOTES: Pt picked up by the ambulance, pt is stable , denies any pain. Vitals Bp 124/71 P72 O2sat 94 RR18. Pt transferred to the [facility] by paramedics , d/c paper work signed by the patient and belongings taken by the patient
--- NOTE | 2019-12-27 23:00 | Consultation ---
DATE OF CONSULTATION: 12/27/2019 CONSULTING PHYSICIAN: Juan R Dorantes M.D. REFERRING PHYSICIAN: Fermín Griggs D.O. REASON FOR CONSULTATION: Evaluation of nephrolithiasis. HISTORY OF PRESENT ILLNESS: This is a 54-year-old male. He was originally admitted to the hospital because of chest pain and back pain. He has been in the hospital for an extended period and he has had evaluation by various consultants. He apparently has a history of nephrolithiasis by report and Urology evaluation has been requested. The patient is being discharged back to his nursing facility [facility]. PAST MEDICAL HISTORY: Significant for above history of coronary artery disease, diabetes, chronic back pain, nephrolithiasis history, hypertension, and CHF. PAST SURGICAL HISTORY: He has had heart surgery. Other surgeries are unknown. MEDICATIONS: Current medication list in the hospital was reviewed. He is on Lasix, morphine, Levemir, NovoLog, Lipitor, Neurontin, Remeron, Ecotrin, Plavix, Neurontin, Imdur, Lopressor, Synthroid, Robaxin, nitroglycerin. ALLERGIES: No known drug allergies. SOCIAL HISTORY: Currently nonsmoker. REVIEW OF SYSTEMS: As above. He has some urinary frequency. FAMILY HISTORY: Noncontributory. PHYSICAL EXAMINATION: GENERAL: The patient is well-developed and well-nourished male in no acute distress. VITAL SIGNS: Temperature is 97.2, blood pressure 150/79, pulse 85, respirations 20. HEENT: Normocephalic. NECK: Supple. ABDOMEN: Soft. No CVA tenderness. LABORATORY DATA: BUN 36, creatinine 1.2, potassium 4.5. White count is 8.3, hemoglobin 12.0, platelets 273. There are no urine tests on this admission. DIAGNOSTIC IMAGING STUDIES: The patient had a lumbar spine MRI and chest x-ray, which were reviewed. There are no renal imaging studies at [facility]. IMPRESSION: 1. History of abdominal and back pain. 2. Nephrolithiasis history. 3. Urinary frequency. 4. Rule out neurogenic bladder. PLAN AND DISCUSSION: Again the patient has history of kidney stones by report. There are no imaging studies here at [place] to validate this. He is being discharged back to [facility] and he will need to follow up as an outpatient to have imaging studies of his kidney, either an ultrasound or CT scan after which we can decide on the next step. If he does have significant nephrolithiasis history, then he will need to have lithotripsy procedure at some point. Thank you for this consultation. Juan R Dorantes M.D. DR: Lizette JOB#: [id number] CC:
--- NOTE | 2019-12-28 02:30 | Progress Note ---
DATE: 12/27/2019 SUBJECTIVE: The patient is in bed. No acute distress noted. The patient had a Nephrology The patient is awaiting placement. No behavior issues noted. The patient will be rehab today. Compliant with medication. No behavior issues noted. MENTAL STATUS EXAMINATION: Alert and oriented times self, place, and situation. Mood is dysphoric. Affect is constricted, congruent with mood. Thought process is concrete. Thought content, no suicidal or homicidal ideation. ASSESSMENT: 1. Major depressive disorder. 2. Anxiety disorder. PLAN: 1. Continue current medications. 2. Provide the patient with reality orientation and supportive therapy. Kiko Botello M.D. DR: PO JOB#: [id number] CC: KOLBY
[2019-12-29] MEDS ORDERED: Furosemide 40mg tab ORAL SCH (09:00)
--- NOTE | 2019-12-29 17:54 | Discharge Summary ---
Discharge Summary Discharge Summary _ DATE OF ADMISSION: 12/08/2019 DATE OF DISCHARGE: 12/27/2019 DISCHARGED BY: Dr. Fermín Griggs CONSULTANTS: Dr. Shon Bull [facility] COURSE: Patient is a 54-year-old male, who presented from [facility] due to elevated blood sugar. Patient has prior history of diabetes. He has history of cardiac disease with previous sternotomy and bypass graft. He reported intermittent chest discomfort for the past week. He also had lower extremity swelling. Upon evaluation at the ED, vital signs were stable. Blood work did not show any leukocytosis. Hemoglobin hematocrit were stable. Glucose 438. Troponin was negative. proBNP 106. EKG had nonspecific changes. He was given Lasix which provided minimal edema. He was admitted for acute exacerbation of CHF. Cardiology was consulted. Patient has history of CAD and bypass surgery standpoint several locations. He would have chest pain every 2 months or so. His last intervention was on July 2019 at [facility]. He had stent placement. Records from [facility] were reviewed. Last echocardiogram at [facility] last year showed EF 45% with normal wall motion. Last perfusion imaging July 2019 showed 2% reversible and 6% fixed in his last cardiac catheterization back in July, left main has no disease. He has been patient at [facility] number well and indicated that he usually does not have any significant myocardial infarction. Because of persistent symptoms may be related to small vessel disease to be treated with medications. Senior Biostatistician was consulted. He was given Levemir and NovoLog. He was placed on Star Starlixlix 120 mg AC and Januvia 100 mg daily. He complained of pain to the back. He was given morphine. He underwent psychiatric evaluation. He was diagnosed with major depressive disorder and was started on Wellbutrin 150 mg. He was given Remeron. Nitropaste was transitioned to Imdur. Troponin and EKG were normal. Kidney function elevated. He was given cautious diuresis. He was advised to wear ISSAC hose stockings. Advised leg elevation. Glucose values were elevated. Hemoglobin A1c 10.2. Insulin was adjusted. He was noncompliant with diet. Neurologist was consulted. Patient complained of paresthesia in the legs for at least 2 months. He denied significant loss of bowel or bladder function. 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 He has significant loss of proprioception possibly due to low serum copper level given his anemia and vitamin B12 deficiency. Lumbar spine MRI did not show any significant neural impingement. No acute bony trauma. He complained history of kidney stones. Urologist was consulted. There was no imaging done to validate stated history. Patient is for discharge back to rehab. Recommended ultrasound or CT scan. Advised to follow-up as outpatient. [facility] was [facility]. FINAL DIAGNOSES: Acute exacerbation of diastolic CHF Diabetes mellitus, out of control Hypothyroidism Major depressive disorder Anxiety disorder Low back pain probably related to degenerative joint disease of the lumbar spine Hypertension Chronic and recurring chest pain Coronary artery disease status post coronary artery bypass graft and multiple stents Hyperlipidemia Obesity DISPOSITION: DC to SNF. DISCHARGE MEDICATIONS: Refer to Discharge Medication List. I have been assigned to complete a discharge summary on this account, I was not involved with the patient's management.--ELAINE Angelo Jacqueline Robles NP Dec 29, 2019 17:54
== END 2019-12-27 22:10 | DRG 292 ==
LOC: EDBD 11:15 → EMR 11:56 → 2E 11:59 → EDBEDREQ 12:34 → 2E 14:07 → 3E 12-13 05:43 → SDSOVERFLO 12-26 10:36 → 3E 12-26 10:38
DX: I11.0 Hypertensive heart disease with heart failure (principal); E46 Unspecified protein-calorie malnutrition; M51.06 Intervertebral disc disorders with myelopathy, lumbar region; I50.33 Acute on chronic diastolic (congestive) heart failure; E11.65 Type 2 diabetes mellitus with hyperglycemia; Z68.38 Body mass index [BMI] 38.0-38.9, adult; F32.9 Major depressive disorder, single episode, unspecified; E66.9 Obesity, unspecified; E11.40 Type 2 diabetes mellitus with diabetic neuropathy, unspecified; Z79.4 Long term (current) use of insulin; D64.9 Anemia, unspecified; E53.8 Deficiency of other specified B group vitamins; M51.16 Intervertebral disc disorders with radiculopathy, lumbar region; I25.10 Atherosclerotic heart disease of native coronary artery without angina pectoris; Z95.1 Presence of aortocoronary bypass graft; E78.5 Hyperlipidemia, unspecified; Z76.5 Malingerer [conscious simulation]; R35.0 Frequency of micturition; F41.9 Anxiety disorder, unspecified; E03.9 Hypothyroidism, unspecified; R07.89 Other chest pain; Z95.5 Presence of coronary angioplasty implant and graft
CPT/HCPCS: 36415; 71045; 72148; 80048; 80053; 80061; 82607; 82962; 83036; 83690; 83735; 83880; 83921; 84484; 85025; 85651; 87081; 93005; 93306; 96374; 97803; 99285; J1815; S5561

== ENCOUNTER 2020-01-13 14:46 | Inpatient (IN) | payer MEDICARE, OTHER ==
[~2020-01-13] VITALS: Ht 162.6 cm; Wt 111.6 kg
[~2020-01-13 14:46] MED LIST: ACETAMINOPHEN325 M1 ORAL; AMBIEN5 MG ORAL; ASPIR 8181 MG ORAL; ATORVASTATIN CA40 MG ORAL; BUPROPION HCL100 M1 ORAL; CLOPIDOGREL300 MG ORAL; FUROSEMIDE40 MG ORAL; GABAPENTIN300 MG ORAL; ISOSORBIDE MONO60 M1 PO; LANTUS SOL100 UNIT/1 SUBQ; LEVOTHYROXINE175 MCG ORAL; METOPROLOL TART25 MG ORAL; MIRTAZAPINE7.5 MG ORAL; MORPHINE IR15 MG ORAL; NEURONTIN100 MG ORAL; NOVOLOG100 UNITS1; PANTOPRAZOLE SO40 MG ORAL; STARLIX60 MG ORAL
[2020-01-13 15:10] VITALS: BP 131/74
[2020-01-13 17:00] VITALS: BP 124/78
--- NOTE | 2020-01-13 17:03 | Diagnostic Imaging Report ---
Indication: Shortness of breath Technique: One view of the chest Comparison: 12/08/2019 Findings: Inspiration is suboptimal. There is questionably mild interstitial congestion. The heart size is normal. There is evidence of prior CABG Impression: Mild interstitial congestion
[2020-01-13] MEDS ORDERED: oxyCODONE HCL/Acetaminophen 5/325mg ORAL ONE (17:15)
[2020-01-13 18:09] LABS: BASOPHILS % (AUTO) 1.4 % (0.0-2.0); EOSINOPHILS % (AUTO) 2.9 % (0.0-3.0); HEMATOCRIT 36.8 % (42.0-52.0); HEMOGLOBIN 12.6 G/DL (14.2-18.0); LYMPHOCYTES % (AUTO) 15.8 % (20.0-45.0); MEAN CORPUSCULAR VOLUME 93 FL (80-99); MONOCYTES % (AUTO) 7.9 % (1.0-10.0); NEUTROPHILS % (AUTO) 72.1 % (45.0-75.0); PLATELET COUNT 283 K/UL (150-450); RED BLOOD COUNT 3.94 M/UL (4.70-6.10); RED CELL DISTRIBUTION WIDTH 13.3 % (11.6-14.8); WHITE BLOOD COUNT 9.7 K/UL (4.8-10.8)
[2020-01-13 18:24] LABS: ANION GAP 12 mmol/L (5-15); BLOOD UREA NITROGEN 18 mg/dL (7-18); CALCIUM 9.3 MG/DL (8.5-10.1); CARBON DIOXIDE 26 MMOL/L (21-32); CHLORIDE 100 MMOL/L (98-107); CREATININE 1.1 MG/DL (0.55-1.30); POTASSIUM 4.8 MMOL/L (3.5-5.1); SODIUM 138 MMOL/L (136-145)
[2020-01-13 18:37] LABS: ALANINE AMINOTRANSFERASE 52 U/L (12-78); ALBUMIN 3.6 G/DL (3.4-5.0); ALBUMIN/GLOBULIN RATIO 0.9 (1.0-2.7); ALKALINE PHOSPHATASE 116 U/L (46-116); ASPARTATE AMINO TRANSFERASE 17 U/L (15-37); BILIRUBIN,TOTAL 0.3 MG/DL (0.2-1.0); CREATINE KINASE 89 U/L (26-308)
[2020-01-13] MEDS ORDERED: Nitroglycerin 2% oint pkt TOPIC ONE (19:00)
[2020-01-13 19:06] VITALS: BP 120/69
--- NOTE | 2020-01-13 19:12 | Emergency Room Report ---
History of Present Illness General Chief Complaint: Chest Pain Source: Patient Present Illness HPI This patient has a history of coronary artery disease and congestive heart failure. He states that for the past couple days he has had chest pain and shortness of breath. He also reports cough. He denies sputum production. He admits that he has had swelling in his lower extremities for the past week. 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 He denies a fever or chills. He denies nausea or vomiting. He states he has a history of chronic pain from kidney stones in his kidneys. He states he is scheduled for surgical removal of these kidney stones. However, he has yet to be cleared by his community liaison officer. He has no other complaints. COVID-19 risk:Travel to affect: No Has patient experienced littlejohn: No Coronavirus symptoms experienc: Shortness of Breath, Cough, Runny Nose Allergies: Coded Allergies: No Known Allergies (Unverified , 12/08/19) Patient History Past Medical History: see triage record, DM, HTN, MD, CAD, CHF, GERD, other - Liver disease/?cirrhosis Social History: Denies: smoking, alcohol use, drug use Reviewed Nursing Documentation: PMH: Agreed; PSxH: Agreed Nursing Documentation-PMH Past Medical History: No History, Except For Hx Cardiac Problems: Yes - ACS, CHF, STEMI, Edema, coronary angioplasty implant and graft Hx COPD: Yes Hx Diabetes: Yes - Type 1, retirement insulin use Hx Gastrointestinal Problems: Yes - Liver cirrhosis, portal HTN, GERD with esophagitis, hepatitis A Hx Neurological Problems: Yes - disc disorder Review of Systems All Other Systems: negative except mentioned in HPI Physical Exam Vital Signs Date Time Temp Pulse Resp B/P (MAP) Pulse Ox O2 Delivery O2 Flow Rate FiO2 01/13/20 15:04 98.6 103 24 129/79 (96) 90 Nasal Cannula 3.0 Sp02 EP Interpretation: reviewed, abnormal General Appearance: no apparent distress, alert, GCS 15, non-toxic Head: normocephalic, atraumatic Eyes: bilateral eye normal inspection, bilateral eye PERRL ENT: hearing 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, normal pharynx, no angioedema, normal voice Neck: full range of motion, supple/symm/no masses Respiratory: chest non-tender, lungs clear, normal breath sounds, no respiratory distress, no retraction, no accessory muscle use, speaking full sentences Cardiovascular #1: regular rate, rhythm, no edema Gastrointestinal: normal bowel sounds, non tender, soft, non-distended, no guarding, no rebound Rectal: deferred Musculoskeletal: normal inspection, normal range of motion, non-tender Neurologic: alert, motor strength/tone normal, oriented x3, sensory intact, responsive, speech normal Psychiatric: judgement/insight normal, memory normal, mood/affect normal, no suicidal/homicidal ideation Skin: no rash, normal color Medical Decision Making Diagnostic Impression: Primary Impression: Acute exacerbation of CHF (congestive heart failure) ER Course This patient has a CHF exacerbation. Likely the patient has medication noncompliance. The patient has swelling in his bilateral lower extremities and interstitial edema on his chest x-ray. Overall, the patient is well-appearing and nontoxic. Given the cough, I did obtain a COVID-19 swab although at this time the patient is low risk. However, if he were positive he has very high morbidity and mortality given his chronic diseases. The patient is admitted to telemetry for further evaluation and treatment by internal medicine and cardiology for CHF exacerbation. Laboratory Tests Test 01/13/20 17:00 01/13/20 17:30 White Blood Count 9.7 K/UL (4.8-10.8) Red Blood Count 3.94 M/UL (4.70-6.10) L Hemoglobin 12.6 G/DL (14.2-18.0) L Hematocrit 36.8 % (42.0-52.0) L Mean Corpuscular Volume 93 FL (80-99) Mean Corpuscular Hemoglobin 32.0 PG (27.0-31.0) H Mean Corpuscular Hemoglobin Concent 34.2 G/DL (32.0-36.0) Red Cell Distribution Width 13.3 % (11.6-14.8) Platelet Count 283 K/UL (150-450) Mean Platelet Volume 6.3 FL (6.5-10.1) L Neutrophils (%) (Auto) 72.1 % (45.0-75.0) Lymphocytes (%) (Auto) 15.8 % (20.0-45.0) L Monocytes (%) (Auto) 7.9 % (1.0-10.0) Eosinophils (%) (Auto) 2.9 % (0.0-3.0) Basophils (%) (Auto) 1.4 % (0.0-2.0) Sodium Level 138 MMOL/L (136-145) Potassium Level 4.8 MMOL/L (3.5-5.1) Chloride Level 100 MMOL/L (98-107) Carbon Dioxide Level 26 MMOL/L (21-32) Anion Gap 12 mmol/L (5-15) Blood Urea Nitrogen 18 mg/dL (7-18) Creatinine 1.1 MG/DL (0.55-1.30) Estimate Glomerular Filtration Rate > 60 mL/min (>60) Glucose Level 277 MG/DL (74-106) H Lactic Acid Level 2.00 mmol/L (0.4-2.0) Calcium Level 9.3 MG/DL (8.5-10.1) Total Bilirubin 0.3 MG/DL (0.2-1.0) Aspartate Amino Transferase (AST) 17 U/L (15-37) Alanine Aminotransferase (ALT) 52 U/L (12-78) Alkaline Phosphatase 116 U/L (46-116) Total Creatine Kinase 89 U/L (26-308) Troponin I 0.000 ng/mL (0.000-0.056) Total Protein 7.4 G/DL (6.4-8.2) Albumin 3.6 G/DL (3.4-5.0) Globulin 3.8 g/dL Albumin/Globulin Ratio 0.9 (1.0-2.7) L Urine Color Pending Urine Appearance Pending Urine pH Pending Urine Specific [place] Pending Urine Protein Pending Urine Glucose (UA) Pending Urine Ketones Pending Urine Blood Pending Urine Nitrite Pending Urine Bilirubin Pending Urine Urobilinogen Pending Urine Leukocyte Esterase Pending Microbiology Date/Time Source Procedure Growth Status 01/13/20 17:30 Nasal Nares - Final Complete 01/13/20 17:30 Nasal Nares - Final Complete EKG Diagnostic Results Rate: normal Rhythm: NSR ST Segments: no acute changes Rhythm Strip Diag. Results EP Interpretation: yes Rate: 90's Rhythm: NSR, no PVC's, no ectopy Chest X-Ray Diagnostic Results Chest X-Ray Diagnostic Results : Chest X-Ray Ordered: Yes # of Views/Limited/Complete: 1 View Indication: Shortness of Breath EP Interpretation: Yes Interpretation: other - Diffuse patchy opacities (poor inspiration) Impression: Other - C/w interstitial edema. Electronically Signed by: Rachna Rivero DO Last Vital Signs Date Time Temp Pulse Resp B/P (MAP) Pulse Ox O2 Delivery O2 Flow Rate FiO2 01/13/20 19:06 96 24 120/69 96 Nasal Cannula 3.0 01/13/20 17:00 98.5 Disposition: ADMITTED INPATIENT Condition: Serious Referrals: Fermín Griggs DO (PCP) Rachna Rivero DO Jan 13, 2020 19:12
[2020-01-13 19:39] LABS: APPEARANCE,URINE CLEAR; BILIRUBIN, URINE NEGATIVE (NEGATIVE); COLOR,URINE PALE YELLOW; GLUCOSE, URINE (UA) 4+ (NEGATIVE); KETONES,URINE NEGATIVE (NEGATIVE); LEUKOCYTE ESTERASE ,URINE NEGATIVE (NEGATIVE); NITRITE,URINE NEGATIVE (NEGATIVE); PH,URINE 6.5 (4.5-8.0); PROTEIN,URINE 1+ (NEGATIVE); UROBILINOGEN,URINE 1 MG/DL (0.0-1.0)
[2020-01-13 20:00] VITALS: BP 159/96
[2020-01-13] MEDS ORDERED: Albuterol/Ipratropium 3ml neb HHN PRN (21:45)
[2020-01-13] MEDS ORDERED: Miralax 17gm pkt ORAL PRN (21:45)
[2020-01-14] MEDS: Promethazine/Codeine 5ml UD ORAL PRN ×5 (00:49→21:36)
[2020-01-14] MEDS: NovoLOG Insulin Flexpen SUBQ SCH ×4 (05:46→21:00)
[2020-01-14 07:31] LABS: ANION GAP 14 mmol/L (5-15); BLOOD UREA NITROGEN 16 mg/dL (7-18); CALCIUM 9.5 MG/DL (8.5-10.1); CARBON DIOXIDE 25 MMOL/L (21-32); CHLORIDE 97 MMOL/L (98-107); CREATININE 1.1 MG/DL (0.55-1.30); POTASSIUM 3.9 MMOL/L (3.5-5.1); SODIUM 136 MMOL/L (136-145)
[2020-01-14 08:12] VITALS: BP 126/76
[2020-01-14] MEDS: Theophylline ER 100mg ORAL SCH ×2 (09:04→21:00)
[2020-01-14] MEDS: Aspirin EC 81mg tab ORAL SCH (09:04)
[2020-01-14] MEDS: BuPROPion SR 150mg tab ORAL SCH ×2 (09:04→21:00)
[2020-01-14] MEDS: Heparin 5000 units/ml inj SUBQ SCH ×2 (09:05→21:00)
--- NOTE | 2020-01-14 10:08 | Infectious Diseases Prog Note ---
Subjective Allergies: Coded Allergies: No Known Allergies (Unverified , 12/08/19) Objective Vital Signs Last 24 Hour Vital Signs Date Time Temp Pulse Resp B/P (MAP) Pulse Ox O2 Delivery O2 Flow Rate FiO2 01/14/20 08:12 96.7 104 19 126/76 (93) 98 01/14/20 07:46 96 Nasal Cannula 3.0 32 01/14/20 07:42 101 01/14/20 04:17 98 01/14/20 00:01 92 01/13/20 23:56 Nasal Cannula 3.0 01/13/20 23:34 85 20 93 Nasal Cannula 3.0 32 01/13/20 23:34 93 Nasal Cannula 3.0 32 01/13/20 22:00 98.5 103 24 159/96 97 Nasal Cannula 3.0 01/13/20 20:00 98.5 103 24 159/96 97 Nasal Cannula 3.0 01/13/20 19:06 96 24 120/69 96 Nasal Cannula 3.0 01/13/20 19:02 123/79 01/13/20 17:00 98.5 98 24 124/78 94 Nasal Cannula 3.0 01/13/20 15:10 103 24 Nasal Cannula 3.0 01/13/20 15:10 98.6 103 24 131/74 90 Nasal Cannula 3.0 01/13/20 15:04 98.6 103 24 129/79 (96) 90 Nasal Cannula 3.0 Height (Feet): 5 Height (Inches): 4.00 Weight (Pounds): 239 Microbiology Date/Time Source Procedure Growth Status 01/13/20 17:30 Nasal Nares - Final Complete 01/13/20 17:30 Nasal Nares - Final Complete Laboratory Tests Test 01/13/20 17:00 01/13/20 19:00 01/13/20 22:00 01/14/20 05:56 White Blood Count 9.7 K/UL (4.8-10.8) Red Blood Count 3.94 M/UL (4.70-6.10) L Hemoglobin 12.6 G/DL (14.2-18.0) L Hematocrit 36.8 % (42.0-52.0) L Mean Corpuscular Volume 93 FL (80-99) Mean Corpuscular Hemoglobin 32.0 PG (27.0-31.0) H Mean Corpuscular Hemoglobin Concent 34.2 G/DL (32.0-36.0) Red Cell Distribution Width 13.3 % (11.6-14.8) Platelet Count 283 K/UL (150-450) Mean Platelet Volume 6.3 FL (6.5-10.1) L Neutrophils (%) (Auto) 72.1 % (45.0-75.0) Lymphocytes (%) (Auto) 15.8 % (20.0-45.0) L Monocytes (%) (Auto) 7.9 % (1.0-10.0) Eosinophils (%) (Auto) 2.9 % (0.0-3.0) Basophils (%) (Auto) 1.4 % (0.0-2.0) Sodium Level 138 MMOL/L (136-145) 136 MMOL/L (136-145) Potassium Level 4.8 MMOL/L (3.5-5.1) 3.9 MMOL/L (3.5-5.1) Chloride Level 100 MMOL/L (98-107) 97 MMOL/L (98-107) L Carbon Dioxide Level 26 MMOL/L (21-32) 25 MMOL/L (21-32) Anion Gap 12 mmol/L (5-15) 14 mmol/L (5-15) Blood Urea Nitrogen 18 mg/dL (7-18) 16 mg/dL (7-18) Creatinine 1.1 MG/DL (0.55-1.30) 1.1 MG/DL (0.55-1.30) Estimat Glomerular Filtration Rate > 60 mL/min (>60) > 60 mL/min (>60) Glucose Level 277 MG/DL (74-106) H 315 MG/DL (74-106) H Lactic Acid Level 2.00 mmol/L (0.4-2.0) Calcium Level 9.3 MG/DL (8.5-10.1) 9.5 MG/DL (8.5-10.1) Total Bilirubin 0.3 MG/DL (0.2-1.0) Aspartate Amino Transf (AST/SGOT) 17 U/L (15-37) Alanine Aminotransferase (ALT/SGPT) 52 U/L (12-78) Alkaline Phosphatase 116 U/L (46-116) Total Creatine Kinase 89 U/L (26-308) Troponin I 0.000 ng/mL (0.000-0.056) 0.000 ng/mL (0.000-0.056) 0.000 ng/mL (0.000-0.056) Total Protein 7.4 G/DL (6.4-8.2) Albumin 3.6 G/DL (3.4-5.0) Globulin 3.8 g/dL Albumin/Globulin Ratio 0.9 (1.0-2.7) L Urine Color Pale yellow Urine Appearance Clear Urine pH 6.5 (4.5-8.0) Urine Specific [place] 1.010 (1.005-1.035) Urine Protein 1+ (NEGATIVE) H Urine Glucose (UA) 4+ (NEGATIVE) H Urine Ketones Negative (NEGATIVE) Urine Blood Negative (NEGATIVE) Urine Nitrite Negative (NEGATIVE) Urine Bilirubin Negative (NEGATIVE) Urine Urobilinogen 1 MG/DL (0.0-1.0) H Urine Leukocyte Esterase Negative (NEGATIVE) Urine RBC 0-2 /HPF (0 - 0) H Urine WBC 2-4 /HPF (0 - 0) Urine Squamous Epithelial Cells None /LPF (NONE/OCC) Urine Bacteria Few /HPF (NONE) Current Medications Medications (Trade) Dose Ordered Sig/Rodney Route PRN Reason Start Time Stop Time Status Last Admin Dose Admin Acetaminophen (Tylenol) 650 mg Q4H PRN ORAL Fever 01/13/20 21:45 02/12/20 21:44 Albuterol/ Ipratropium (Albuterol/ Ipratropium) 3 ml EVERY 4 HOURS PRN HHN Shortness of Breath 01/13/20 21:45 01/18/20 21:44 Aspirin (Ecotrin) 81 mg DAILY ORAL 01/14/20 09:00 02/28/20 08:59 01/14/20 09:04 Bupropion HCl (Wellbutrin SR) 150 mg EVERY 12 HOURS ORAL 01/14/20 09:00 02/13/20 08:59 01/14/20 09:04 Clopidogrel Bisulfate (Plavix) 75 mg DAILY ORAL 01/14/20 09:00 02/13/20 08:59 01/14/20 09:03 Dextrose (Dextrose 50%) 25 ml Q30M PRN IV Hypoglycemia 01/13/20 21:45 02/12/20 21:44 Dextrose (Dextrose 50%) 50 ml Q30M PRN IV Hypoglycemia 01/13/20 21:45 02/12/20 21:44 Furosemide (Lasix) 40 mg EVERY 8 HOURS IV 01/13/20 22:00 02/12/20 21:59 01/14/20 05:43 Gabapentin (Neurontin) 300 mg BEDTIME ORAL 01/13/20 22:30 02/12/20 22:29 01/13/20 22:55 Heparin Sodium (Porcine) (Heparin 5000 units/ml) 5,000 units EVERY 12 HOURS SUBQ 01/14/20 09:00 02/28/20 08:59 01/14/20 09:05 Insulin Aspart (NovoLOG) BEFORE MEALS AND HS SUBQ 01/14/20 06:30 02/13/20 06:29 01/14/20 05:46 Mirtazapine (Remeron) 7.5 mg BEDTIME ORAL 01/13/20 22:30 02/12/20 22:29 Ondansetron HCl (Zofran) 4 mg Q6H PRN IVP Nausea & Vomiting 01/13/20 21:45 02/12/20 21:44 Polyethylene Glycol (Miralax) 17 gm DAILYPRN PRN ORAL Constipation 01/13/20 21:45 02/12/20 21:44 Promethazine HCl/ Codeine (Phenergan with Codeine) 5 ml Q4H PRN ORAL For Cough 01/13/20 22:00 02/12/20 21:59 01/14/20 09:11 Temazepam (Restoril) 15 mg HSPRN PRN ORAL Insomnia 01/13/20 22:30 01/20/20 22:29 Theophylline (Jose-Dur) 100 mg EVERY 12 HOURS ORAL 01/14/20 09:00 02/13/20 08:59 01/14/20 09:04 Berry Taylor MD Jan 14, 2020 10:08
--- NOTE | 2020-01-14 10:59 | Diagnostic Imaging Report ---
Indication: Cough Technique: One view of the chest Comparison: 01/13/2020 Findings: There is right perihilar atelectasis, new or increased. The lungs and pleural spaces are otherwise clear. The heart size is normal. There are median sternotomy sutures. Lungs appear less congested. Impression: Diffuse interstitial congestion, over one day New or increased right perihilar atelectasis
[2020-01-14 12:00] VITALS: BP 140/88
--- NOTE | 2020-01-14 13:51 | History and Physical ---
History of Present Illness General Date patient seen: Jan 14, 2020 Reason for Hospitalization: Chest Pain Present Illness HPI 54 year old male with a history of Diabetes, Hypothyroid, coronary artery disease and bypass surgery and stents on several occasions. Presented to ER with CC of chest pain, Sore throat and cough. He has shortness of breath on exertion. He has dizziness on standing. He has occasional palpitations. He has cough with whitish phlegm. Allergies: Coded Allergies: No Known Allergies (Unverified , 12/08/19) Medication History Scheduled Aspirin* (Aspir 81*), 81 MG ORAL DAILY, (Reported) Atorvastatin Calcium* (Atorvastatin Calcium*), 80 MG ORAL BEDTIME, (Reported) Bupropion Sr* (Bupropion Sr*), 150 MG ORAL EVERY 12 HOURS, (Reported) Clopidogrel* (Clopidogrel*), 75 MG ORAL DAILY, (Reported) Furosemide* (Lasix*), 40 MG ORAL DAILY, (Reported) Gabapentin* (Gabapentin*), 300 MG ORAL BEDTIME, (Reported) Gabapentin* (Neurontin*), 300 MG ORAL THREE TIMES A DAY, (Reported) Insulin Glargine (Lantus), 0 SUBQ BEDTIME, (Reported) Levothyroxine Sodium (Levothyroxine Sodium), 50 MCG ORAL DAILY, (Reported) Metoprolol Tartrate* (Metoprolol Tartrate*), 25 MG ORAL EVERY 12 HOURS, ( Reported) Mirtazapine* (Mirtazapine*), 7.5 MG ORAL BEDTIME, (Reported) Nateglinide* (Starlix*), 120 MG ORAL THREE TIMES A DAY, (Reported) Pantoprazole* (Pantoprazole*), 40 MG ORAL DAILY, (Reported) Scheduled PRN Acetaminophen* (Acetaminophen 325MG Tablet*), 650 MG ORAL Q4H PRN for Pain Scale (3-5), (Reported) Morphine HCl (Morphine Sulfate ER), 7.5 MG ORAL Q6H PRN for For Pain, (Reported) Zolpidem Tartrate* (Ambien*), 5 MG ORAL BEDTIME PRN for Insomnia, (Reported) Miscellaneous Medications Insulin Aspart (Novolog Flexpen), (Reported) Isosorbide Mononitrate (Isosorbide Mononitrate Er), 60 MG PO, (Reported) Patient History Healthcare decision maker jose elias cortez Resuscitation status Full Code Advanced Directive on File Past Medical/Surgical History Past Medical/Surgical History: (1) Diabetes (2) HTN (hypertension) Review of Systems All Other Systems: negative except mentioned in HPI Physical Exam General Appearance: WD/WN, no apparent distress Lines, tubes and drains: peripheral HEENT: normocephalic, atraumatic Neck: normal alignment, supple Respiratory/Chest: chest wall non-tender, lungs clear Abdomen: normal bowel sounds, non tender Genitourinary/Rectal: normal genital exam Last 24 Hour Vital Signs Date Time Temp Pulse Resp B/P (MAP) Pulse Ox O2 Delivery O2 Flow Rate FiO2 01/14/20 12:00 98.2 103 20 140/88 (105) 99 01/14/20 11:40 98 01/14/20 09:00 Room Air 01/14/20 08:12 96.7 104 19 126/76 (93) 98 01/14/20 07:46 96 Nasal Cannula 3.0 32 01/14/20 07:42 101 01/14/20 04:17 98 01/14/20 00:01 92 01/13/20 23:56 Nasal Cannula 3.0 01/13/20 23:34 85 20 93 Nasal Cannula 3.0 32 01/13/20 23:34 93 Nasal Cannula 3.0 32 01/13/20 22:00 98.5 103 24 159/96 97 Nasal Cannula 3.0 01/13/20 20:00 98.5 103 24 159/96 97 Nasal Cannula 3.0 01/13/20 19:06 96 24 120/69 96 Nasal Cannula 3.0 01/13/20 19:02 123/79 01/13/20 17:00 98.5 98 24 124/78 94 Nasal Cannula 3.0 01/13/20 15:10 103 24 Nasal Cannula 3.0 01/13/20 15:10 98.6 103 24 131/74 90 Nasal Cannula 3.0 01/13/20 15:04 98.6 103 24 129/79 (96) 90 Nasal Cannula 3.0 Intake and Output 01/13/20 01/14/20 19:00 07:00 Intake Total 0 ml 0 ml Output Total 3200 ml Balance 0 ml -3200 ml Intake Oral 0 ml 0 ml Output Urine Total 3200 ml # Voids 4 # Bowel Movements 1 Laboratory Tests Test 01/13/20 17:00 01/13/20 19:00 01/13/20 22:00 01/14/20 05:56 White Blood Count 9.7 K/UL (4.8-10.8) Red Blood Count 3.94 M/UL (4.70-6.10) L Hemoglobin 12.6 G/DL (14.2-18.0) L Hematocrit 36.8 % (42.0-52.0) L Mean Corpuscular Volume 93 FL (80-99) Mean Corpuscular Hemoglobin 32.0 PG (27.0-31.0) H Mean Corpuscular Hemoglobin Concent 34.2 G/DL (32.0-36.0) Red Cell Distribution Width 13.3 % (11.6-14.8) Platelet Count 283 K/UL (150-450) Mean Platelet Volume 6.3 FL (6.5-10.1) L Neutrophils (%) (Auto) 72.1 % (45.0-75.0) Lymphocytes (%) (Auto) 15.8 % (20.0-45.0) L Monocytes (%) (Auto) 7.9 % (1.0-10.0) Eosinophils (%) (Auto) 2.9 % (0.0-3.0) Basophils (%) (Auto) 1.4 % (0.0-2.0) Sodium Level 138 MMOL/L (136-145) 136 MMOL/L (136-145) Potassium Level 4.8 MMOL/L (3.5-5.1) 3.9 MMOL/L (3.5-5.1) Chloride Level 100 MMOL/L (98-107) 97 MMOL/L (98-107) L Carbon Dioxide Level 26 MMOL/L (21-32) 25 MMOL/L (21-32) Anion Gap 12 mmol/L (5-15) 14 mmol/L (5-15) Blood Urea Nitrogen 18 mg/dL (7-18) 16 mg/dL (7-18) Creatinine 1.1 MG/DL (0.55-1.30) 1.1 MG/DL (0.55-1.30) Estimat Glomerular Filtration Rate > 60 mL/min (>60) > 60 mL/min (>60) Glucose Level 277 MG/DL (74-106) H 315 MG/DL (74-106) H Lactic Acid Level 2.00 mmol/L (0.4-2.0) Calcium Level 9.3 MG/DL (8.5-10.1) 9.5 MG/DL (8.5-10.1) Total Bilirubin 0.3 MG/DL (0.2-1.0) Aspartate Amino Transf (AST/SGOT) 17 U/L (15-37) Alanine Aminotransferase (ALT/SGPT) 52 U/L (12-78) Alkaline Phosphatase 116 U/L (46-116) Total Creatine Kinase 89 U/L (26-308) Troponin I 0.000 ng/mL (0.000-0.056) 0.000 ng/mL (0.000-0.056) 0.000 ng/mL (0.000-0.056) Total Protein 7.4 G/DL (6.4-8.2) Albumin 3.6 G/DL (3.4-5.0) Globulin 3.8 g/dL Albumin/Globulin Ratio 0.9 (1.0-2.7) L Urine Color Pale yellow Urine Appearance Clear Urine pH 6.5 (4.5-8.0) Urine Specific [place] 1.010 (1.005-1.035) Urine Protein 1+ (NEGATIVE) H Urine Glucose (UA) 4+ (NEGATIVE) H Urine Ketones Negative (NEGATIVE) Urine Blood Negative (NEGATIVE) Urine Nitrite Negative (NEGATIVE) Urine Bilirubin Negative (NEGATIVE) Urine Urobilinogen 1 MG/DL (0.0-1.0) H Urine Leukocyte Esterase Negative (NEGATIVE) Urine RBC 0-2 /HPF (0 - 0) H Urine WBC 2-4 /HPF (0 - 0) Urine Squamous Epithelial Cells None /LPF (NONE/OCC) Urine Bacteria Few /HPF (NONE) Microbiology Date/Time Source Procedure Growth Status 01/13/20 17:30 Nasal Nares - Final Complete 01/13/20 17:30 Nasal Nares - Final Complete Height (Feet): 5 Height (Inches): 4.00 Weight (Pounds): 239 Medications Current Medications Medications (Trade) Dose Ordered Sig/Rodney Route PRN Reason Start Time Stop Time Status Last Admin Dose Admin Acetaminophen (Tylenol) 650 mg Q4H PRN ORAL Fever 01/13/20 21:45 4/15/20 21:44 Albuterol/ Ipratropium (Albuterol/ Ipratropium) 3 ml EVERY 4 HOURS PRN HHN Shortness of Breath 01/13/20 21:45 01/18/20 21:44 Aspirin (Ecotrin) 81 mg DAILY ORAL 01/14/20 09:00 02/28/20 08:59 01/14/20 09:04 Bupropion HCl (Wellbutrin SR) 150 mg EVERY 12 HOURS ORAL 01/14/20 09:00 02/13/20 08:59 01/14/20 09:04 Clopidogrel Bisulfate (Plavix) 75 mg DAILY ORAL 01/14/20 09:00 02/13/20 08:59 01/14/20 09:03 Dextrose (Dextrose 50%) 25 ml Q30M PRN IV Hypoglycemia 01/13/20 21:45 02/12/20 21:44 Dextrose (Dextrose 50%) 50 ml Q30M PRN IV Hypoglycemia 01/13/20 21:45 02/12/20 21:44 Furosemide (Lasix) 40 mg EVERY 8 HOURS IV 01/13/20 22:00 02/12/20 21:59 01/14/20 05:43 Gabapentin (Neurontin) 300 mg BEDTIME ORAL 01/13/20 22:30 02/12/20 22:29 01/13/20 22:55 Heparin Sodium (Porcine) (Heparin 5000 units/ml) 5,000 units EVERY 12 HOURS SUBQ 01/14/20 09:00 02/28/20 08:59 01/14/20 09:05 Insulin Aspart (NovoLOG) BEFORE MEALS AND HS SUBQ 01/14/20 06:30 02/13/20 06:29 01/14/20 12:10 Mirtazapine (Remeron) 7.5 mg BEDTIME ORAL 01/13/20 22:30 02/12/20 22:29 Ondansetron HCl (Zofran) 4 mg Q6H PRN IVP Nausea & Vomiting 01/13/20 21:45 02/12/20 21:44 Polyethylene Glycol (Miralax) 17 gm DAILYPRN PRN ORAL Constipation 01/13/20 21:45 02/12/20 21:44 Promethazine HCl/ Codeine (Phenergan with Codeine) 5 ml Q4H PRN ORAL For Cough 01/13/20 22:00 02/12/20 21:59 01/14/20 09:11 Temazepam (Restoril) 15 mg HSPRN PRN ORAL Insomnia 01/13/20 22:30 01/20/20 22:29 Theophylline (Jose-Dur) 100 mg EVERY 12 HOURS ORAL 01/14/20 09:00 02/13/20 08:59 01/14/20 09:04 Assessment/Plan Problem List: (1) Acute bronchitis ICD Codes: J20.9 - Acute bronchitis, unspecified SNOMED: 94875767 (2) Viral syndrome ICD Codes: B34.9 - Viral infection, unspecified SNOMED: 01990582 (3) Diabetes ICD Codes: E11.9 - Type 2 diabetes mellitus without complications SNOMED: 57391825 (4) Hypothyroid ICD Codes: E03.9 - Hypothyroidism, unspecified SNOMED: 91606287 (5) HTN (hypertension) ICD Codes: I10 - Essential (primary) hypertension SNOMED: 07500955 Assessment/Plan: check sputum iv abx cardiology evaluation CXR is clear, pt doesn't have pedal edema replace Synthroid ID and cardio to see. Richard Hood MD Jan 14, 2020 13:51
--- NOTE | 2020-01-14 14:07 | Cardiology Progress Note ---
Assessment/Plan Assessment/Plan [id number] Objective Last 24 Hour Vital Signs Date Time Temp Pulse Resp B/P (MAP) Pulse Ox O2 Delivery O2 Flow Rate FiO2 01/14/20 12:00 98.2 103 20 140/88 (105) 99 01/14/20 11:40 98 01/14/20 09:00 Room Air 01/14/20 08:12 96.7 104 19 126/76 (93) 98 01/14/20 07:46 96 Nasal Cannula 3.0 32 01/14/20 07:42 101 01/14/20 04:17 98 01/14/20 00:01 92 01/13/20 23:56 Nasal Cannula 3.0 01/13/20 23:34 85 20 93 Nasal Cannula 3.0 32 01/13/20 23:34 93 Nasal Cannula 3.0 32 01/13/20 22:00 98.5 103 24 159/96 97 Nasal Cannula 3.0 01/13/20 20:00 98.5 103 24 159/96 97 Nasal Cannula 3.0 01/13/20 19:06 96 24 120/69 96 Nasal Cannula 3.0 01/13/20 19:02 123/79 01/13/20 17:00 98.5 98 24 124/78 94 Nasal Cannula 3.0 01/13/20 15:10 103 24 Nasal Cannula 3.0 01/13/20 15:10 98.6 103 24 131/74 90 Nasal Cannula 3.0 01/13/20 15:04 98.6 103 24 129/79 (96) 90 Nasal Cannula 3.0 Intake and Output 01/13/20 01/14/20 19:00 07:00 Intake Total 0 ml 0 ml Output Total 3200 ml Balance 0 ml -3200 ml Intake Oral 0 ml 0 ml Output Urine Total 3200 ml # Voids 4 # Bowel Movements 1 Laboratory Tests Test 01/13/20 17:00 01/13/20 19:00 01/13/20 22:00 01/14/20 05:56 White Blood Count 9.7 K/UL (4.8-10.8) Red Blood Count 3.94 M/UL (4.70-6.10) L Hemoglobin 12.6 G/DL (14.2-18.0) L Hematocrit 36.8 % (42.0-52.0) L Mean Corpuscular Volume 93 FL (80-99) Mean Corpuscular Hemoglobin 32.0 PG (27.0-31.0) H Mean Corpuscular Hemoglobin Concent 34.2 G/DL (32.0-36.0) Red Cell Distribution Width 13.3 % (11.6-14.8) Platelet Count 283 K/UL (150-450) Mean Platelet Volume 6.3 FL (6.5-10.1) L Neutrophils (%) (Auto) 72.1 % (45.0-75.0) Lymphocytes (%) (Auto) 15.8 % (20.0-45.0) L Monocytes (%) (Auto) 7.9 % (1.0-10.0) Eosinophils (%) (Auto) 2.9 % (0.0-3.0) Basophils (%) (Auto) 1.4 % (0.0-2.0) Sodium Level 138 MMOL/L (136-145) 136 MMOL/L (136-145) Potassium Level 4.8 MMOL/L (3.5-5.1) 3.9 MMOL/L (3.5-5.1) Chloride Level 100 MMOL/L (98-107) 97 MMOL/L (98-107) L Carbon Dioxide Level 26 MMOL/L (21-32) 25 MMOL/L (21-32) Anion Gap 12 mmol/L (5-15) 14 mmol/L (5-15) Blood Urea Nitrogen 18 mg/dL (7-18) 16 mg/dL (7-18) Creatinine 1.1 MG/DL (0.55-1.30) 1.1 MG/DL (0.55-1.30) Estimat Glomerular Filtration Rate > 60 mL/min (>60) > 60 mL/min (>60) Glucose Level 277 MG/DL (74-106) H 315 MG/DL (74-106) H Lactic Acid Level 2.00 mmol/L (0.4-2.0) Calcium Level 9.3 MG/DL (8.5-10.1) 9.5 MG/DL (8.5-10.1) Total Bilirubin 0.3 MG/DL (0.2-1.0) Aspartate Amino Transf (AST/SGOT) 17 U/L (15-37) Alanine Aminotransferase (ALT/SGPT) 52 U/L (12-78) Alkaline Phosphatase 116 U/L (46-116) Total Creatine Kinase 89 U/L (26-308) Troponin I 0.000 ng/mL (0.000-0.056) 0.000 ng/mL (0.000-0.056) 0.000 ng/mL (0.000-0.056) Total Protein 7.4 G/DL (6.4-8.2) Albumin 3.6 G/DL (3.4-5.0) Globulin 3.8 g/dL Albumin/Globulin Ratio 0.9 (1.0-2.7) L Urine Color Pale yellow Urine Appearance Clear Urine pH 6.5 (4.5-8.0) Urine Specific [place] 1.010 (1.005-1.035) Urine Protein 1+ (NEGATIVE) H Urine Glucose (UA) 4+ (NEGATIVE) H Urine Ketones Negative (NEGATIVE) Urine Blood Negative (NEGATIVE) Urine Nitrite Negative (NEGATIVE) Urine Bilirubin Negative (NEGATIVE) Urine Urobilinogen 1 MG/DL (0.0-1.0) H Urine Leukocyte Esterase Negative (NEGATIVE) Urine RBC 0-2 /HPF (0 - 0) H Urine WBC 2-4 /HPF (0 - 0) Urine Squamous Epithelial Cells None /LPF (NONE/OCC) Urine Bacteria Few /HPF (NONE) Microbiology Date/Time Source Procedure Growth Status 01/13/20 17:30 Nasal Nares - Final Complete 01/13/20 17:30 Nasal Nares - Final Complete Sarkis Guthrie MD Jan 14, 2020 14:07
--- NOTE | 2020-01-14 14:53 | Infectious Diseases Prog Note ---
Subjective Allergies: Coded Allergies: No Known Allergies (Unverified , 12/08/19) Subjective # [id number] Objective Vital Signs Last 24 Hour Vital Signs Date Time Temp Pulse Resp B/P (MAP) Pulse Ox O2 Delivery O2 Flow Rate FiO2 01/14/20 12:00 98.2 103 20 140/88 (105) 99 01/14/20 11:40 98 01/14/20 09:00 Room Air 01/14/20 08:12 96.7 104 19 126/76 (93) 98 01/14/20 07:46 96 Nasal Cannula 3.0 32 01/14/20 07:42 101 01/14/20 04:17 98 01/14/20 00:01 92 01/13/20 23:56 Nasal Cannula 3.0 01/13/20 23:34 85 20 93 Nasal Cannula 3.0 32 01/13/20 23:34 93 Nasal Cannula 3.0 32 01/13/20 22:00 98.5 103 24 159/96 97 Nasal Cannula 3.0 01/13/20 20:00 98.5 103 24 159/96 97 Nasal Cannula 3.0 01/13/20 19:06 96 24 120/69 96 Nasal Cannula 3.0 01/13/20 19:02 123/79 01/13/20 17:00 98.5 98 24 124/78 94 Nasal Cannula 3.0 01/13/20 15:10 103 24 Nasal Cannula 3.0 01/13/20 15:10 98.6 103 24 131/74 90 Nasal Cannula 3.0 01/13/20 15:04 98.6 103 24 129/79 (96) 90 Nasal Cannula 3.0 Height (Feet): 5 Height (Inches): 4.00 Weight (Pounds): 239 Microbiology Date/Time Source Procedure Growth Status 01/13/20 17:30 Nasal Nares - Final Complete 01/13/20 17:30 Nasal Nares - Final Complete Laboratory Tests Test 01/13/20 17:00 01/13/20 19:00 01/13/20 22:00 01/14/20 05:56 White Blood Count 9.7 K/UL (4.8-10.8) Red Blood Count 3.94 M/UL (4.70-6.10) L Hemoglobin 12.6 G/DL (14.2-18.0) L Hematocrit 36.8 % (42.0-52.0) L Mean Corpuscular Volume 93 FL (80-99) Mean Corpuscular Hemoglobin 32.0 PG (27.0-31.0) H Mean Corpuscular Hemoglobin Concent 34.2 G/DL (32.0-36.0) Red Cell Distribution Width 13.3 % (11.6-14.8) Platelet Count 283 K/UL (150-450) Mean Platelet Volume 6.3 FL (6.5-10.1) L Neutrophils (%) (Auto) 72.1 % (45.0-75.0) Lymphocytes (%) (Auto) 15.8 % (20.0-45.0) L Monocytes (%) (Auto) 7.9 % (1.0-10.0) Eosinophils (%) (Auto) 2.9 % (0.0-3.0) Basophils (%) (Auto) 1.4 % (0.0-2.0) Sodium Level 138 MMOL/L (136-145) 136 MMOL/L (136-145) Potassium Level 4.8 MMOL/L (3.5-5.1) 3.9 MMOL/L (3.5-5.1) Chloride Level 100 MMOL/L (98-107) 97 MMOL/L (98-107) L Carbon Dioxide Level 26 MMOL/L (21-32) 25 MMOL/L (21-32) Anion Gap 12 mmol/L (5-15) 14 mmol/L (5-15) Blood Urea Nitrogen 18 mg/dL (7-18) 16 mg/dL (7-18) Creatinine 1.1 MG/DL (0.55-1.30) 1.1 MG/DL (0.55-1.30) Estimat Glomerular Filtration Rate > 60 mL/min (>60) > 60 mL/min (>60) Glucose Level 277 MG/DL (74-106) H 315 MG/DL (74-106) H Lactic Acid Level 2.00 mmol/L (0.4-2.0) Calcium Level 9.3 MG/DL (8.5-10.1) 9.5 MG/DL (8.5-10.1) Total Bilirubin 0.3 MG/DL (0.2-1.0) Aspartate Amino Transf (AST/SGOT) 17 U/L (15-37) Alanine Aminotransferase (ALT/SGPT) 52 U/L (12-78) Alkaline Phosphatase 116 U/L (46-116) Total Creatine Kinase 89 U/L (26-308) Troponin I 0.000 ng/mL (0.000-0.056) 0.000 ng/mL (0.000-0.056) 0.000 ng/mL (0.000-0.056) Total Protein 7.4 G/DL (6.4-8.2) Albumin 3.6 G/DL (3.4-5.0) Globulin 3.8 g/dL Albumin/Globulin Ratio 0.9 (1.0-2.7) L Urine Color Pale yellow Urine Appearance Clear Urine pH 6.5 (4.5-8.0) Urine Specific [place] 1.010 (1.005-1.035) Urine Protein 1+ (NEGATIVE) H Urine Glucose (UA) 4+ (NEGATIVE) H Urine Ketones Negative (NEGATIVE) Urine Blood Negative (NEGATIVE) Urine Nitrite Negative (NEGATIVE) Urine Bilirubin Negative (NEGATIVE) Urine Urobilinogen 1 MG/DL (0.0-1.0) H Urine Leukocyte Esterase Negative (NEGATIVE) Urine RBC 0-2 /HPF (0 - 0) H Urine WBC 2-4 /HPF (0 - 0) Urine Squamous Epithelial Cells None /LPF (NONE/OCC) Urine Bacteria Few /HPF (NONE) Current Medications Medications (Trade) Dose Ordered Sig/Rodney Route PRN Reason Start Time Stop Time Status Last Admin Dose Admin Acetaminophen (Tylenol) 650 mg Q4H PRN ORAL Fever 01/13/20 21:45 02/12/20 21:44 Albuterol/ Ipratropium (Albuterol/ Ipratropium) 3 ml EVERY 4 HOURS PRN HHN Shortness of Breath 01/13/20 21:45 01/18/20 21:44 Aspirin (Ecotrin) 81 mg DAILY ORAL 01/14/20 09:00 02/28/20 08:59 01/14/20 09:04 Bupropion HCl (Wellbutrin SR) 150 mg EVERY 12 HOURS ORAL 01/14/20 09:00 02/13/20 08:59 01/14/20 09:04 Clopidogrel Bisulfate (Plavix) 75 mg DAILY ORAL 01/14/20 09:00 02/13/20 08:59 01/14/20 09:03 Dextrose (Dextrose 50%) 25 ml Q30M PRN IV Hypoglycemia 01/13/20 21:45 02/12/20 21:44 Dextrose (Dextrose 50%) 50 ml Q30M PRN IV Hypoglycemia 01/13/20 21:45 02/12/20 21:44 Furosemide (Lasix) 40 mg EVERY 8 HOURS IV 01/13/20 22:00 02/12/20 21:59 01/14/20 14:05 Gabapentin (Neurontin) 300 mg BEDTIME ORAL 01/13/20 22:30 02/12/20 22:29 01/13/20 22:55 Heparin Sodium (Porcine) (Heparin 5000 units/ml) 5,000 units EVERY 12 HOURS SUBQ 01/14/20 09:00 02/28/20 08:59 01/14/20 09:05 Insulin Aspart (NovoLOG) BEFORE MEALS AND HS SUBQ 01/14/20 06:30 02/13/20 06:29 01/14/20 12:10 Isosorbide Dinitrate (Isordil) 20 mg TID ORAL 01/14/20 18:00 02/13/20 17:59 Mirtazapine (Remeron) 7.5 mg BEDTIME ORAL 01/13/20 22:30 02/12/20 22:29 Ondansetron HCl (Zofran) 4 mg Q6H PRN IVP Nausea & Vomiting 01/13/20 21:45 02/12/20 21:44 Polyethylene Glycol (Miralax) 17 gm DAILYPRN PRN ORAL Constipation 01/13/20 21:45 02/12/20 21:44 Promethazine HCl/ Codeine (Phenergan with Codeine) 5 ml Q4H PRN ORAL For Cough 01/13/20 22:00 02/12/20 21:59 01/14/20 14:06 Temazepam (Restoril) 15 mg HSPRN PRN ORAL Insomnia 01/13/20 22:30 01/20/20 22:29 Theophylline (Jose-Dur) 100 mg EVERY 12 HOURS ORAL 01/14/20 09:00 02/13/20 08:59 01/14/20 09:04 Berry Taylor MD Jan 14, 2020 14:53
[2020-01-14 16:00] VITALS: BP 118/76
[2020-01-14] MEDS: Doxycycline Monohydrate 100mg ORAL SCH (16:38)
[2020-01-14] MEDS: cefTRIAXone 1 GM in D5W 55 ML IVPB SCH (16:38)
[2020-01-14 20:00] VITALS: BP 129/71
--- NOTE | 2020-01-14 20:30 | Consultation ---
DATE OF CONSULTATION: 01/14/2020 CARDIOLOGY CONSULTATION CONSULTING PHYSICIAN: Sarkis Guthrie M.D. REFERRING PHYSICIAN: Richard Hood M.D. REASON FOR REFERRAL: Chest pain. HISTORY OF PRESENT ILLNESS: This is a 54-year-old gentleman, who has a history of multiple medical problems including chronic recurrent chest pain. During the last hospitalization, I thought that the patient was experiencing recurrent chest pain even cardiac or possibly small vessel disease related. The patient was started on of Imdur therapy. He was subsequently transferred to the convalescent facility where he received isosorbide instead of Imdur 20 mg once a day as needed. Nevertheless he comes back with several complaints one of which include chest pain. Chest pain lasted possibly all day, at times really no relieving or exacerbating factors identified by the patient, as it has not been even on the last prior hospitalization. He does have some shortness of breath on exertion. He states he has shortness of breath at rest. He does not wake up because of shortness of breath, occasional palpitation, occasional dizziness. PAST MEDICAL HISTORY: Positive for history coronary artery disease, hypertension, hyperlipidemia, coronary artery bypass graft, diabetes mellitus, history of heart attack when he had his bypass surgery. No cancer. No stroke. No hepatitis or tuberculosis. He has had several stress tests and coronary angiography. His last myocardial infarction occurred in July 2019 showed 2% reversible and 6% fixed and his last cardiac catheterization back in July showed left main had no disease, LAD tapers to 1.5 mm from 3.5 mm proximally patent stent with diffuse but no significant disease circumflex artery, multiple significant obtuse marginal patent stents and no significant stenosis and the right coronary artery patent stent, no significant stenosis, PAUL to diagonal branch was patent, saphenous vein graft to obtuse marginal had 70 to 80% proximal of this vessel was intervened by Dr. Cabrera back in July 2017. Nevertheless he has had other hospitalizations for chest pains and he has not had any myocardial infarctions subsequent to that. ALLERGIES: The patient is not allergic to any medications. SOCIAL HISTORY: He quit smoking, alcohol, and drugs about 30 years ago. REVIEW OF SYSTEMS: GASTROINTESTINAL: He has got nausea. No constipation. No bloody or black stool. GENITOURINARY: Negative. PULMONARY: Positive for coughing. CONSTITUTIONAL: No fevers, chills, or night sweats. NEUROLOGIC: Negative. PHYSICAL EXAMINATION: GENERAL: Shows to be middle-aged gentleman, in no respiratory distress, overweight. NECK: Supple. No jugular venous distention. LUNGS: Clear to auscultation and percussion. CARDIAC: Regular rate and rhythm. No heaves, thrills, or gallops noted. ABDOMEN: Soft and obese. Positive bowel sounds. Chest wall is nontender to palpation. EXTREMITIES: There is no edema, clubbing, or cyanosis. NEUROLOGICAL: He is awake, alert, responsive. LABORATORY AND DIAGNOSTIC DATA: White count of 9.7, hemoglobin 12.6, and platelet count of 283. His 3 sets of cardiac enzymes are all negative 0.00. Sodium 136, potassium 3.9, chloride 97, bicarbonate 25, BUN 16, creatinine 1, and glucose of 315. Lactic acid 2. Calcium is 9.5. Liver function tests were normal originally. His urinalysis is fairly unremarkable. He did have a chest x-ray in the emergency room that showed mild interstitial congestion and subsequent EKG shows there is right perihilar atelectasis. The lungs and pleural spaces otherwise clear and less congested "lungs" EKG shows sinus rhythm, no ST or T-wave abnormalities being documented on this EKG. Comparison with his prior EKG here at [facility] looks unchanged. ASSESSMENT AND PLAN: 1. Chronic recurrent chest pain, no evidence of myonecrosis. 2. Coronary artery disease status post coronary artery bypass grafting and previous stenting. 3. Obesity. 4. Possible small vessel coronary disease. 5. Diabetes mellitus. 6. Hypertension. Dr. Hood, this patient was seen in cardiac consultation. The patient's electrocardiogram is unremarkable despite having hours of chest pain. Cardiac enzymes are negative. He has had similar episodes before although he does have unfortunately some coronary disease. I do not see any indication here to do any further testing. His cardiac enzymes are negative. I think he should be monitored. I think he should be continued on Imdur but may be 20 mg three times a day will be adequate instead of once a day. His aspirin and his statin are to be continued as well as his Plavix that he was taking because of his angioplasty. His diuretics will be continued. He has been asking for diuretics since last hospitalization because of edema. He does have a slight amount of edema. His renal function appears to be okay at the present time. I follow the patient along with you. Sarkis Guthrie M.D. DR: José Antonio JOB#: [id number] CC:
--- NOTE | 2020-01-14 21:00 | Consultation ---
DATE OF CONSULTATION: 01/13/2020 INFECTIOUS DISEASES CONSULTATION CONSULTING PHYSICIAN: Berry Taylor M.D. REFERRING PHYSICIAN: Richard Hood M.D. REASON FOR CONSULTATION: Evaluation of the patient for pneumonia, COPD exacerbation, shortness of breath, antibiotic management. HISTORY OF PRESENT ILLNESS: The patient is a 54-year-old male with multiple medical problems as listed below who was admitted to this medical center for shortness of breath. The patient resides in a nursing facility. The patient also has cough. Infectious Diseases consultation has been requested for further evaluation of the patient and antibiotic management. PAST MEDICAL HISTORY: 1. History of CHF. 2. History of CAD. 3. History of hypothyroidism. 4. History of hypertension. 5. History of chronic obstructive pulmonary disease. 6. Liver cirrhosis. 7. History of drug abuse in the past. 8. History of GERD. FAMILY HISTORY: Noncontributory. SOCIAL HISTORY: The patient lives in a [place] [facility]. MEDICATIONS: Currently off of antibiotics. PHYSICAL EXAMINATION: VITAL SIGNS: Temperature 96.5, pulse 86, respiratory rate 18, blood pressure 126/76, respiratory rate 18. HEENT: No pale conjunctivae. No icterus. NECK: No lymphadenopathy. CHEST: Coarse breathing sounds. HEART: S1 and S2. ABDOMEN: Soft, obese and nontender. EXTREMITIES: No cyanosis. NEUROLOGIC: Awake and alert. LABORATORY AND DIAGNOSTIC DATA: White cell count , hemoglobin 12.6, platelet 286. BUN 16 and creatinine 1.3. ALT, AST, and alkaline phosphatase unremarkable. ASSESSMENT: The patient is a 54-year-old male with: 1. Shortness of breath. 2. Afebrile. 3. Elevated white blood cells. 4. Leukopenia. 5. Rule out probable Covid-19. PLAN: 1. We will start the patient on doxycycline and Rocephin day #1. 2. Monitor CBC. 3. Monitor BMP. 4. Monitor cultures. 5. We will monitor chest x-ray. 6. Review CT of the chest. Based on patient's clinical course and labs, we will do further recommendation. We will send for Covid-19 and influenza screening test. Berry Taylor M.D. DR: Jumana JOB#: [id number] CC:
--- NOTE | 2020-01-14 21:30 | Consultation ---
DATE OF CONSULTATION: 01/14/2020 INFECTIOUS DISEASES CONSULTATION CONSULTING PHYSICIAN: Berry Taylor M.D. REFERRING PHYSICIAN: Richard Hood M.D. REASON FOR CONSULTATION: Evaluation of the patient for pneumonia, COPD exacerbation, shortness of breath, antibiotic management. HISTORY OF PRESENT ILLNESS: The patient is a 54-year-old male with multiple medical problems as listed below who was admitted to this medical center for shortness of breath. The patient resides in a nursing facility. The patient also has cough. Infectious Diseases consultation has been requested for further evaluation of the patient and antibiotic management. PAST MEDICAL HISTORY: 1. History of CHF. 2. History of CAD. 3. History of hypothyroidism. 4. History of hypertension. 5. History of chronic obstructive pulmonary disease. 6. Liver cirrhosis. 7. History of drug abuse in the past. 8. History of GERD. FAMILY HISTORY: Noncontributory. SOCIAL HISTORY: The patient lives in a [facility]. MEDICATIONS: Currently off of antibiotics. PHYSICAL EXAMINATION: VITAL SIGNS: Temperature 96.5, pulse 86, respiratory rate 18, blood pressure 126/76. HEENT: No pale conjunctivae. No icterus. NECK: No lymphadenopathy. CHEST: Coarse breathing sounds. HEART: S1 and S2. ABDOMEN: Soft, obese and nontender. EXTREMITIES: No cyanosis. NEUROLOGIC: Awake and alert. LABORATORY AND DIAGNOSTIC DATA: White cell count , hemoglobin 12.6, platelet 286. BUN 16 and creatinine 1.3. ALT, AST, and alkaline phosphatase unremarkable. ASSESSMENT: The patient is a 54-year-old male with: 1. Shortness of breath. 2. Afebrile. 3. Elevated white blood cells. 4. Leukopenia. 5. Rule out probable Covid-19. PLAN: 1. We will start the patient on doxycycline and Rocephin day #1. 2. Monitor CBC. 3. Monitor BMP. 4. Monitor cultures. 5. We will monitor chest x-ray. 6. Review CT of the chest. Based on patient's clinical course and labs, we will do further recommendation. We will send for Covid-19 and influenza screening test. Berry Taylor M.D. DR: Jumana JOB#: [id number] CC:
[2020-01-15] VITALS: BP 126/80
[2020-01-15 04:00] VITALS: BP 149/82
[2020-01-15] MEDS: Promethazine/Codeine 5ml UD ORAL PRN ×4 (06:40→21:33)
[2020-01-15] MEDS: NovoLOG Insulin Flexpen SUBQ SCH ×4 (06:44→21:33)
[2020-01-15 08:00] VITALS: BP 131/81
[2020-01-15] MEDS: Aspirin EC 81mg tab ORAL SCH (09:20)
[2020-01-15] MEDS: BuPROPion SR 150mg tab ORAL SCH ×2 (09:21→20:45)
[2020-01-15] MEDS: Theophylline ER 100mg ORAL SCH ×2 (09:21→20:42)
[2020-01-15] MEDS: Doxycycline Monohydrate 100mg ORAL SCH ×2 (09:21→22:16)
[2020-01-15] MEDS: Heparin 5000 units/ml inj SUBQ SCH ×2 (09:22→20:43)
--- NOTE | 2020-01-15 11:33 | Infectious Diseases Prog Note ---
Assessment/Plan Assessment/Plan ASSESSMENT: The patient is a 54-year-old male with: Shortness of breath. Afebrile. Elevated white blood cells. Leukopenia. Rule out probable Covid-19. History of CHF. istory of CAD History of hypothyroidism. History of hypertension. History of chronic obstructive pulmonary disease. Liver cirrhosis. History of drug abuse in the past. GERD PLAN: cont patient on doxycycline and Rocephin day # 2 Monitor CBC. Monitor BMP. Monitor cultures. monitor chest x-ray. CT of the chest Subjective Allergies: Coded Allergies: No Known Allergies (Unverified , 12/08/19) Subjective afebrile Objective Vital Signs Last 24 Hour Vital Signs Date Time Temp Pulse Resp B/P (MAP) Pulse Ox O2 Delivery O2 Flow Rate FiO2 01/15/20 09:21 131/81 01/15/20 09:00 Room Air 01/15/20 08:00 97.3 100 19 131/81 (98) 94 01/15/20 08:00 98 01/15/20 07:56 95 Nasal Cannula 3.0 32 01/15/20 04:00 98.3 102 20 149/82 (104) 97 01/15/20 04:00 97 01/15/20 00:00 98.3 105 18 126/80 (95) 96 01/14/20 21:00 Room Air 01/14/20 20:15 94 Nasal Cannula 3.0 32 01/14/20 20:00 108 01/14/20 20:00 98.8 109 18 129/71 (90) 90 01/14/20 17:29 118/76 01/14/20 16:00 96.7 101 18 118/76 (90) 96 01/14/20 15:45 105 01/14/20 12:00 98.2 103 20 140/88 (105) 99 01/14/20 11:40 98 Height (Feet): 5 Height (Inches): 4.00 Weight (Pounds): 249 Respiratory/Chest: lungs clear Cardiovascular: regular rhythm Abdomen: no organomegaly Microbiology Date/Time Source Procedure Growth Status 01/13/20 17:00 Blood Blood Culture - Preliminary NO GROWTH AFTER 24 HOURS Resulted 01/13/20 16:45 Blood Blood Culture - Preliminary NO GROWTH AFTER 24 HOURS Resulted 01/14/20 00:52 Sputum Gram Stain - Final Resulted 01/14/20 00:52 Sputum Sputum Culture - Preliminary NORMAL UPPER RESPIRATORY YODIT AT 24 ... Resulted 01/13/20 17:30 Nasal Nares - Final Complete 01/13/20 17:30 Nasal Nares - Final Complete 01/14/20 22:55 Rectum Received Laboratory Tests Test 01/15/20 05:56 Troponin I 0.000 ng/mL (0.000-0.056) Current Medications Medications (Trade) Dose Ordered Sig/Rodney Route PRN Reason Start Time Stop Time Status Last Admin Dose Admin Acetaminophen (Tylenol) 650 mg Q4H PRN ORAL Fever 01/13/20 21:45 02/12/20 21:44 Albuterol/ Ipratropium (Albuterol/ Ipratropium) 3 ml EVERY 4 HOURS PRN HHN Shortness of Breath 01/13/20 21:45 01/18/20 21:44 Aspirin (Ecotrin) 81 mg DAILY ORAL 01/14/20 09:00 02/28/20 08:59 01/15/20 09:20 Bupropion HCl (Wellbutrin SR) 150 mg EVERY 12 HOURS ORAL 01/14/20 09:00 02/13/20 08:59 01/15/20 09:21 Ceftriaxone Sodium 1 gm/ Dextrose 55 ml @ 110 mls/hr Q24H IVPB 01/14/20 16:00 01/21/20 15:59 01/14/20 16:38 Clopidogrel Bisulfate (Plavix) 75 mg DAILY ORAL 01/14/20 09:00 02/13/20 08:59 01/15/20 09:21 Dextrose (Dextrose 50%) 25 ml Q30M PRN IV Hypoglycemia 01/13/20 21:45 02/12/20 21:44 Dextrose (Dextrose 50%) 50 ml Q30M PRN IV Hypoglycemia 01/13/20 21:45 02/12/20 21:44 Doxycycline Monohydrate (Doxycycline Monohydrate) 100 mg Q12HR@1000,2200 ORAL 01/14/20 16:00 01/21/20 15:59 01/15/20 09:21 Furosemide (Lasix) 40 mg EVERY 8 HOURS IV 01/13/20 22:00 02/12/20 21:59 01/15/20 06:40 Gabapentin (Neurontin) 300 mg BEDTIME ORAL 01/13/20 22:30 02/12/20 22:29 01/14/20 21:00 Heparin Sodium (Porcine) (Heparin 5000 units/ml) 5,000 units EVERY 12 HOURS SUBQ 01/14/20 09:00 02/28/20 08:59 01/15/20 09:22 Insulin Aspart (NovoLOG) BEFORE MEALS AND HS SUBQ 01/14/20 06:30 02/13/20 06:29 01/15/20 11:25 Isosorbide Dinitrate (Isordil) 20 mg TID ORAL 01/14/20 18:00 02/13/20 17:59 01/15/20 09:21 Mirtazapine (Remeron) 7.5 mg BEDTIME ORAL 01/13/20 22:30 02/12/20 22:29 Ondansetron HCl (Zofran) 4 mg Q6H PRN IVP Nausea & Vomiting 01/13/20 21:45 02/12/20 21:44 Polyethylene Glycol (Miralax) 17 gm DAILYPRN PRN ORAL Constipation 01/13/20 21:45 02/12/20 21:44 Promethazine HCl/ Codeine (Phenergan with Codeine) 5 ml Q4H PRN ORAL For Cough 01/13/20 22:00 02/12/20 21:59 01/15/20 11:08 Temazepam (Restoril) 15 mg HSPRN PRN ORAL Insomnia 01/13/20 22:30 01/20/20 22:29 Theophylline (Jose-Dur) 100 mg EVERY 12 HOURS ORAL 01/14/20 09:00 02/13/20 08:59 01/15/20 09:21 Berry Taylor MD Jan 15, 2020 11:33
[2020-01-15 12:00] VITALS: BP 110/75
--- NOTE | 2020-01-15 13:14 | Pulmonology Progress Note ---
Assessment/Plan Problems: (1) Acute bronchitis (2) Viral syndrome (3) Diabetes (4) Hypothyroid (5) HTN (hypertension) Assessment/Plan sputum culture and blood cultures are negative add Lidocaine inhalation for persistent cough sliding scale watch bun/creatinine b/o lasix 80Q 8 hours. dvt prophylaxis. Subjective ROS Limited/Unobtainable: No Constitutional: Reports: no symptoms HEENT: Repors: no symptoms Respiratory: Reports: no symptoms Allergies: Coded Allergies: No Known Allergies (Unverified , 12/08/19) Objective Last 24 Hour Vital Signs Date Time Temp Pulse Resp B/P (MAP) Pulse Ox O2 Delivery O2 Flow Rate FiO2 01/15/20 09:21 131/81 01/15/20 09:00 Room Air 01/15/20 08:00 97.3 100 19 131/81 (98) 94 01/15/20 08:00 98 01/15/20 07:56 95 Nasal Cannula 3.0 32 01/15/20 04:00 98.3 102 20 149/82 (104) 97 01/15/20 04:00 97 01/15/20 00:00 98.3 105 18 126/80 (95) 96 01/14/20 21:00 Room Air 01/14/20 20:15 94 Nasal Cannula 3.0 32 01/14/20 20:00 108 01/14/20 20:00 98.8 109 18 129/71 (90) 90 01/14/20 17:29 118/76 01/14/20 16:00 96.7 101 18 118/76 (90) 96 01/14/20 15:45 105 Intake and Output 01/14/20 01/15/20 19:00 07:00 Intake Total 1440 ml Balance 1440 ml Intake Oral 1440 ml # Voids 4 3 # Bowel Movements 1 General Appearance: WD/WN HEENT: normocephalic, atraumatic Respiratory/Chest: chest wall non-tender, lungs clear Cardiovascular: normal peripheral pulses, regular rhythm Abdomen: normal bowel sounds, soft, non tender Extremities: no cyanosis Microbiology Date/Time Source Procedure Growth Status 01/13/20 17:00 Blood Blood Culture - Preliminary NO GROWTH AFTER 24 HOURS Resulted 01/13/20 16:45 Blood Blood Culture - Preliminary NO GROWTH AFTER 24 HOURS Resulted 01/14/20 00:52 Sputum Gram Stain - Final Resulted 01/14/20 00:52 Sputum Sputum Culture - Preliminary NORMAL UPPER RESPIRATORY YODIT AT 24 ... Resulted 01/13/20 17:30 Nasal Nares - Final Complete 01/13/20 17:30 Nasal Nares - Final Complete 01/14/20 22:55 Rectum Received Laboratory Tests 01/15/20 05:56: Troponin I 0.000 Current Medications Medications (Trade) Dose Ordered Sig/Rodney Route PRN Reason Start Time Stop Time Status Last Admin Dose Admin Acetaminophen (Tylenol) 650 mg Q4H PRN ORAL Fever 01/13/20 21:45 02/12/20 21:44 Albuterol/ Ipratropium (Albuterol/ Ipratropium) 3 ml EVERY 4 HOURS PRN HHN Shortness of Breath 01/13/20 21:45 01/18/20 21:44 Aspirin (Ecotrin) 81 mg DAILY ORAL 01/14/20 09:00 02/28/20 08:59 01/15/20 09:20 Bupropion HCl (Wellbutrin SR) 150 mg EVERY 12 HOURS ORAL 01/14/20 09:00 02/13/20 08:59 01/15/20 09:21 Ceftriaxone Sodium 1 gm/ Dextrose 55 ml @ 110 mls/hr Q24H IVPB 01/14/20 16:00 01/21/20 15:59 01/14/20 16:38 Clopidogrel Bisulfate (Plavix) 75 mg DAILY ORAL 01/14/20 09:00 02/13/20 08:59 01/15/20 09:21 Dextrose (Dextrose 50%) 25 ml Q30M PRN IV Hypoglycemia 01/13/20 21:45 02/12/20 21:44 Dextrose (Dextrose 50%) 50 ml Q30M PRN IV Hypoglycemia 01/13/20 21:45 02/12/20 21:44 Doxycycline Monohydrate (Doxycycline Monohydrate) 100 mg Q12HR@1000,2200 ORAL 01/14/20 16:00 01/21/20 15:59 01/15/20 09:21 Furosemide (Lasix) 40 mg EVERY 8 HOURS IV 01/13/20 22:00 02/12/20 21:59 01/15/20 06:40 Gabapentin (Neurontin) 300 mg BEDTIME ORAL 01/13/20 22:30 02/12/20 22:29 01/14/20 21:00 Heparin Sodium (Porcine) (Heparin 5000 units/ml) 5,000 units EVERY 12 HOURS SUBQ 01/14/20 09:00 02/28/20 08:59 01/15/20 09:22 Insulin Aspart (NovoLOG) BEFORE MEALS AND HS SUBQ 01/14/20 06:30 02/13/20 06:29 01/15/20 11:25 Isosorbide Dinitrate (Isordil) 20 mg TID ORAL 01/14/20 18:00 02/13/20 17:59 01/15/20 09:21 Mirtazapine (Remeron) 7.5 mg BEDTIME ORAL 01/13/20 22:30 02/12/20 22:29 Ondansetron HCl (Zofran) 4 mg Q6H PRN IVP Nausea & Vomiting 01/13/20 21:45 02/12/20 21:44 Polyethylene Glycol (Miralax) 17 gm DAILYPRN PRN ORAL Constipation 01/13/20 21:45 02/12/20 21:44 Promethazine HCl/ Codeine (Phenergan with Codeine) 5 ml Q4H PRN ORAL For Cough 01/13/20 22:00 02/12/20 21:59 01/15/20 11:08 Temazepam (Restoril) 15 mg HSPRN PRN ORAL Insomnia 01/13/20 22:30 01/20/20 22:29 Theophylline (Jose-Dur) 100 mg EVERY 12 HOURS ORAL 01/14/20 09:00 02/13/20 08:59 01/15/20 09:21 Richard Hood MD Jan 15, 2020 13:14
[2020-01-15] MEDS: Lidocaine 1% MPF 10mg/ml 5ml HHN SCH ×2 (15:00→23:00)
[2020-01-15 16:00] VITALS: BP 138/84
[2020-01-15] MEDS: cefTRIAXone 1 GM in D5W 55 ML IVPB SCH (16:32)
--- NOTE | 2020-01-15 19:39 | Cardiology Progress Note ---
Assessment/Plan Assessment/Plan 1. Chronic recurrent chest pain, no evidence of myonecrosis. 2. Coronary artery disease status post coronary artery bypass grafting and previous stenting. 3. Obesity. 4. Possible small vessel coronary disease. 5. Diabetes mellitus. 6. Hypertension. l in isolation for covid 19 ab in am decrease lasix to bid tele sinus all trop neg Subjective Subjective covid 19 isolation Objective Last 24 Hour Vital Signs Date Time Temp Pulse Resp B/P (MAP) Pulse Ox O2 Delivery O2 Flow Rate FiO2 01/15/20 18:24 138/84 01/15/20 16:00 111 01/15/20 16:00 97.7 116 19 138/84 (102) 94 01/15/20 13:29 Room Air 01/15/20 13:16 110/75 01/15/20 12:00 105 01/15/20 12:00 97.5 108 18 110/75 (87) 95 01/15/20 09:21 131/81 01/15/20 09:00 Room Air 01/15/20 08:00 97.3 100 19 131/81 (98) 94 01/15/20 08:00 98 01/15/20 07:56 95 Nasal Cannula 3.0 32 01/15/20 04:00 98.3 102 20 149/82 (104) 97 01/15/20 04:00 97 01/15/20 00:00 98.3 105 18 126/80 (95) 96 01/14/20 21:00 Room Air 01/14/20 20:15 94 Nasal Cannula 3.0 32 01/14/20 20:00 108 01/14/20 20:00 98.8 109 18 129/71 (90) 90 Intake and Output 01/14/20 01/15/20 19:00 07:00 Intake Total 1440 ml Balance 1440 ml Intake Oral 1440 ml # Voids 4 3 # Bowel Movements 1 Laboratory Tests Test 01/15/20 05:56 Troponin I 0.000 ng/mL (0.000-0.056) Microbiology Date/Time Source Procedure Growth Status 01/13/20 17:00 Blood Blood Culture - Preliminary NO GROWTH AFTER 24 HOURS Resulted 01/13/20 16:45 Blood Blood Culture - Preliminary NO GROWTH AFTER 24 HOURS Resulted 01/14/20 00:52 Sputum Gram Stain - Final Resulted 01/14/20 00:52 Sputum Sputum Culture - Preliminary NORMAL UPPER RESPIRATORY YODIT AT 24 ... Resulted 01/13/20 17:30 Nasal Nares - Final Complete 01/13/20 17:30 Nasal Nares - Final Complete 01/14/20 22:55 Rectum Received Sarkis Guthrie MD Jan 15, 2020 19:39
[2020-01-15 20:00] VITALS: BP 143/64
[2020-01-16] VITALS: BP 135/64
[2020-01-16 04:00] VITALS: BP 130/60
[2020-01-16] MEDS: NovoLOG Insulin Flexpen SUBQ SCH ×4 (06:05→21:58)
[2020-01-16] MEDS: Lidocaine 1% MPF 10mg/ml 5ml HHN SCH (07:48)
[2020-01-16 08:00] VITALS: BP 122/79
[2020-01-16] MEDS: Aspirin EC 81mg tab ORAL SCH (08:26)
[2020-01-16] MEDS: Theophylline ER 100mg ORAL SCH ×2 (08:26→20:47)
[2020-01-16] MEDS: BuPROPion SR 150mg tab ORAL SCH ×2 (08:26→20:49)
[2020-01-16] MEDS: Heparin 5000 units/ml inj SUBQ SCH ×2 (08:27→20:48)
[2020-01-16] MEDS: Doxycycline Monohydrate 100mg ORAL SCH ×2 (09:30→21:56)
--- NOTE | 2020-01-16 11:01 | Pulmonology Progress Note ---
Assessment/Plan Problems: (1) Acute bronchitis (2) Viral syndrome (3) Diabetes (4) Hypothyroid (5) HTN (hypertension) Assessment/Plan sputum culture and blood cultures are negative awaiting [place] virus results check bnp and cxr in am sliding scale watch bun/creatinine b/o lasix 80Q 8 hours. dvt prophylaxis. Subjective ROS Limited/Unobtainable: No Constitutional: Reports: no symptoms HEENT: Repors: no symptoms Respiratory: Reports: no symptoms Allergies: Coded Allergies: No Known Allergies (Unverified , 12/08/19) Objective Last 24 Hour Vital Signs Date Time Temp Pulse Resp B/P (MAP) Pulse Ox O2 Delivery O2 Flow Rate FiO2 01/16/20 09:00 Room Air 01/16/20 08:26 127/72 01/16/20 08:00 98.1 104 20 122/79 (93) 94 01/16/20 08:00 109 01/16/20 07:44 96 Nasal Cannula 3.0 32 01/16/20 04:00 97.6 106 17 130/60 (83) 97 01/16/20 04:00 99 01/16/20 00:00 97.6 107 18 135/64 (87) 96 01/16/20 00:00 108 01/15/20 21:00 Room Air 01/15/20 20:00 108 01/15/20 20:00 98.2 108 18 143/64 (90) 96 01/15/20 19:37 94 Nasal Cannula 3.0 32 01/15/20 18:24 138/84 01/15/20 16:00 111 01/15/20 16:00 97.7 116 19 138/84 (102) 94 01/15/20 13:29 Room Air 01/15/20 13:16 110/75 01/15/20 12:00 105 01/15/20 12:00 97.5 108 18 110/75 (87) 95 Intake and Output 01/15/20 01/16/20 19:00 07:00 Intake Total 1600 ml Output Total 1000 ml 800 ml Balance 600 ml -800 ml Intake Oral 1600 ml Output Urine Total 1000 ml 800 ml # Voids 3 3 General Appearance: WD/WN HEENT: normocephalic, atraumatic Respiratory/Chest: chest wall non-tender, lungs clear Cardiovascular: normal peripheral pulses, normal rate Abdomen: normal bowel sounds, soft, non tender Genitourinary: normal external genitalia Extremities: no cyanosis 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 Microbiology Date/Time Source Procedure Growth Status 01/13/20 17:00 Blood Blood Culture - Preliminary NO GROWTH AFTER 48 HOURS Resulted 01/13/20 16:45 Blood Blood Culture - Preliminary NO GROWTH AFTER 48 HOURS Resulted 01/14/20 00:52 Sputum Gram Stain - Final Complete 01/14/20 00:52 Sputum Sputum Culture - Final NORMAL UPPER RESPIRATORY YODIT PRESENT Complete 01/13/20 17:30 Nasal Nares - Final Complete 01/13/20 17:30 Nasal Nares - Final Complete 01/14/20 22:55 Rectum Received Current Medications Medications (Trade) Dose Ordered Sig/Rodney Route PRN Reason Start Time Stop Time Status Last Admin Dose Admin Acetaminophen (Tylenol) 650 mg Q4H PRN ORAL Fever 01/13/20 21:45 02/12/20 21:44 Albuterol/ Ipratropium (Albuterol/ Ipratropium) 3 ml EVERY 4 HOURS PRN HHN Shortness of Breath 01/13/20 21:45 01/18/20 21:44 Aspirin (Ecotrin) 81 mg DAILY ORAL 01/14/20 09:00 02/28/20 08:59 01/16/20 08:26 Bupropion HCl (Wellbutrin SR) 150 mg EVERY 12 HOURS ORAL 01/14/20 09:00 02/13/20 08:59 01/16/20 08:26 Ceftriaxone Sodium 1 gm/ Dextrose 55 ml @ 110 mls/hr Q24H IVPB 01/14/20 16:00 01/21/20 15:59 01/15/20 16:32 Clopidogrel Bisulfate (Plavix) 75 mg DAILY ORAL 01/14/20 09:00 02/13/20 08:59 01/16/20 08:26 Dextrose (Dextrose 50%) 25 ml Q30M PRN IV Hypoglycemia 01/13/20 21:45 02/12/20 21:44 Dextrose (Dextrose 50%) 50 ml Q30M PRN IV Hypoglycemia 01/13/20 21:45 02/12/20 21:44 Doxycycline Monohydrate (Doxycycline Monohydrate) 100 mg Q12HR@1000,2200 ORAL 01/14/20 16:00 01/21/20 15:59 01/16/20 09:30 Furosemide (Lasix) 40 mg EVERY 8 HOURS IV 01/13/20 22:00 02/12/20 21:59 01/16/20 05:56 Gabapentin (Neurontin) 300 mg BEDTIME ORAL 01/13/20 22:30 02/12/20 22:29 01/15/20 20:42 Heparin Sodium (Porcine) (Heparin 5000 units/ml) 5,000 units EVERY 12 HOURS SUBQ 01/14/20 09:00 02/28/20 08:59 01/16/20 08:27 Insulin Aspart (NovoLOG) BEFORE MEALS AND HS SUBQ 01/14/20 06:30 02/13/20 06:29 01/16/20 06:05 Isosorbide Dinitrate (Isordil) 20 mg TID ORAL 01/14/20 18:00 02/13/20 17:59 01/16/20 08:26 Lidocaine (Xylocaine 1% MPF 5ml) 10 ml Q8HRT HHN 01/15/20 15:00 04/14/20 14:59 Mirtazapine (Remeron) 7.5 mg BEDTIME ORAL 01/13/20 22:30 02/12/20 22:29 Ondansetron HCl (Zofran) 4 mg Q6H PRN IVP Nausea & Vomiting 01/13/20 21:45 02/12/20 21:44 Polyethylene Glycol (Miralax) 17 gm DAILYPRN PRN ORAL Constipation 01/13/20 21:45 02/12/20 21:44 Promethazine HCl/ Codeine (Phenergan with Codeine) 5 ml Q4H PRN ORAL For Cough 01/13/20 22:00 02/12/20 21:59 01/15/20 21:33 Temazepam (Restoril) 15 mg HSPRN PRN ORAL Insomnia 01/13/20 22:30 01/20/20 22:29 Theophylline (Jose-Dur) 100 mg EVERY 12 HOURS ORAL 01/14/20 09:00 02/13/20 08:59 01/16/20 08:26 Richard Hood MD Jan 16, 2020 11:01
[2020-01-16 11:14] VITALS: BP 110/82
[2020-01-16] MEDS: Promethazine/Codeine 5ml UD ORAL PRN ×2 (11:19→17:42)
--- NOTE | 2020-01-16 11:58 | Infectious Diseases Prog Note ---
Assessment/Plan Assessment/Plan ASSESSMENT: The patient is a 54-year-old male with: Shortness of breath. Afebrile. Elevated white blood cells. Leukopenia. Rule out probable Covid-19. History of CHF. istory of CAD History of hypothyroidism. History of hypertension. History of chronic obstructive pulmonary disease. Liver cirrhosis. History of drug abuse in the past. GERD PLAN: cont patient on doxycycline and Rocephin day # 3 Monitor CBC. Monitor BMP. Monitor cultures. Monitor chest x-ray. CT of the chest Subjective Allergies: Coded Allergies: No Known Allergies (Unverified , 12/08/19) Subjective afebrile Objective Vital Signs Last 24 Hour Vital Signs Date Time Temp Pulse Resp B/P (MAP) Pulse Ox O2 Delivery O2 Flow Rate FiO2 01/16/20 11:14 97.6 108 19 110/82 (91) 93 01/16/20 09:00 Room Air 01/16/20 08:26 127/72 01/16/20 08:00 98.1 104 20 122/79 (93) 94 01/16/20 08:00 109 01/16/20 07:44 96 Nasal Cannula 3.0 32 01/16/20 04:00 97.6 106 17 130/60 (83) 97 01/16/20 04:00 99 01/16/20 00:00 97.6 107 18 135/64 (87) 96 01/16/20 00:00 108 01/15/20 21:00 Room Air 01/15/20 20:00 108 01/15/20 20:00 98.2 108 18 143/64 (90) 96 01/15/20 19:37 94 Nasal Cannula 3.0 32 01/15/20 18:24 138/84 01/15/20 16:00 111 01/15/20 16:00 97.7 116 19 138/84 (102) 94 01/15/20 13:29 Room Air 01/15/20 13:16 110/75 01/15/20 12:00 105 01/15/20 12:00 97.5 108 18 110/75 (87) 95 Height (Feet): 5 Height (Inches): 4.00 Weight (Pounds): 249 Respiratory/Chest: lungs clear Cardiovascular: regular rhythm Abdomen: no organomegaly Microbiology Date/Time Source Procedure Growth Status 01/13/20 17:00 Blood Blood Culture - Preliminary NO GROWTH AFTER 48 HOURS Resulted 01/13/20 16:45 Blood Blood Culture - Preliminary NO GROWTH AFTER 48 HOURS Resulted 01/14/20 00:52 Sputum Gram Stain - Final Complete 01/14/20 00:52 Sputum Sputum Culture - Final NORMAL UPPER RESPIRATORY YODIT PRESENT Complete 01/13/20 17:30 Nasal Nares - Final Complete 01/13/20 17:30 Nasal Nares - Final Complete 01/14/20 22:55 Rectum Received Current Medications Medications (Trade) Dose Ordered Sig/Rodney Route PRN Reason Start Time Stop Time Status Last Admin Dose Admin Acetaminophen (Tylenol) 650 mg Q4H PRN ORAL Fever 01/13/20 21:45 02/12/20 21:44 Albuterol/ Ipratropium (Albuterol/ Ipratropium) 3 ml EVERY 4 HOURS PRN HHN Shortness of Breath 01/13/20 21:45 01/18/20 21:44 Aspirin (Ecotrin) 81 mg DAILY ORAL 01/14/20 09:00 02/28/20 08:59 01/16/20 08:26 Bupropion HCl (Wellbutrin SR) 150 mg EVERY 12 HOURS ORAL 01/14/20 09:00 02/13/20 08:59 01/16/20 08:26 Ceftriaxone Sodium 1 gm/ Dextrose 55 ml @ 110 mls/hr Q24H IVPB 01/14/20 16:00 01/21/20 15:59 01/15/20 16:32 Clopidogrel Bisulfate (Plavix) 75 mg DAILY ORAL 01/14/20 09:00 02/13/20 08:59 01/16/20 08:26 Dextrose (Dextrose 50%) 25 ml Q30M PRN IV Hypoglycemia 01/13/20 21:45 02/12/20 21:44 Dextrose (Dextrose 50%) 50 ml Q30M PRN IV Hypoglycemia 01/13/20 21:45 02/12/20 21:44 Doxycycline Monohydrate (Doxycycline Monohydrate) 100 mg Q12HR@1000,2200 ORAL 01/14/20 16:00 01/21/20 15:59 01/16/20 09:30 Furosemide (Lasix) 40 mg EVERY 8 HOURS IV 01/13/20 22:00 02/12/20 21:59 01/16/20 05:56 Gabapentin (Neurontin) 300 mg BEDTIME ORAL 01/13/20 22:30 02/12/20 22:29 01/15/20 20:42 Heparin Sodium (Porcine) (Heparin 5000 units/ml) 5,000 units EVERY 12 HOURS SUBQ 01/14/20 09:00 02/28/20 08:59 01/16/20 08:27 Insulin Aspart (NovoLOG) BEFORE MEALS AND HS SUBQ 01/14/20 06:30 02/13/20 06:29 01/16/20 11:22 Isosorbide Dinitrate (Isordil) 20 mg TID ORAL 01/14/20 18:00 02/13/20 17:59 01/16/20 08:26 Mirtazapine (Remeron) 7.5 mg BEDTIME ORAL 01/13/20 22:30 02/12/20 22:29 Ondansetron HCl (Zofran) 4 mg Q6H PRN IVP Nausea & Vomiting 01/13/20 21:45 02/12/20 21:44 Polyethylene Glycol (Miralax) 17 gm DAILYPRN PRN ORAL Constipation 01/13/20 21:45 02/12/20 21:44 Promethazine HCl/ Codeine (Phenergan with Codeine) 5 ml Q4H PRN ORAL For Cough 01/13/20 22:00 02/12/20 21:59 01/16/20 11:19 Temazepam (Restoril) 15 mg HSPRN PRN ORAL Insomnia 01/13/20 22:30 01/20/20 22:29 Theophylline (Jose-Dur) 100 mg EVERY 12 HOURS ORAL 01/14/20 09:00 02/13/20 08:59 01/16/20 08:26 Berry Taylor MD Jan 16, 2020 11:58
--- NOTE | 2020-01-16 14:08 | Cardiology Progress Note ---
Assessment/Plan Assessment/Plan 1. Chronic recurrent chest pain, no evidence of myonecrosis. 2. Coronary artery disease status post coronary artery bypass grafting and previous stenting. 3. Obesity. 4. Possible small vessel coronary disease. 5. Diabetes mellitus. 6. Hypertension. in isolation for covid 19 labssched to be doen tomorrow on lasix bid on i decreased yest tele remains sinus sinus all trop neg not had any fever since being admitted bp seem fine Subjective Subjective covid 19 isolation Objective Last 24 Hour Vital Signs Date Time Temp Pulse Resp B/P (MAP) Pulse Ox O2 Delivery O2 Flow Rate FiO2 01/16/20 12:00 107 01/16/20 11:14 97.6 108 19 110/82 (91) 93 01/16/20 09:00 Room Air 01/16/20 08:26 127/72 01/16/20 08:00 98.1 104 20 122/79 (93) 94 01/16/20 08:00 109 01/16/20 07:44 96 Nasal Cannula 3.0 32 01/16/20 04:00 97.6 106 17 130/60 (83) 97 01/16/20 04:00 99 01/16/20 00:00 97.6 107 18 135/64 (87) 96 01/16/20 00:00 108 01/15/20 21:00 Room Air 01/15/20 20:00 108 01/15/20 20:00 98.2 108 18 143/64 (90) 96 01/15/20 19:37 94 Nasal Cannula 3.0 32 01/15/20 18:24 138/84 01/15/20 16:00 111 01/15/20 16:00 97.7 116 19 138/84 (102) 94 Intake and Output 01/15/20 01/16/20 19:00 07:00 Intake Total 1600 ml Output Total 1000 ml 800 ml Balance 600 ml -800 ml Intake Oral 1600 ml Output Urine Total 1000 ml 800 ml # Voids 3 3 Microbiology Date/Time Source Procedure Growth Status 01/13/20 17:00 Blood Blood Culture - Preliminary NO GROWTH AFTER 48 HOURS Resulted 01/13/20 16:45 Blood Blood Culture - Preliminary NO GROWTH AFTER 48 HOURS Resulted 01/14/20 00:52 Sputum Gram Stain - Final Complete 01/14/20 00:52 Sputum Sputum Culture - Final NORMAL UPPER RESPIRATORY YODIT PRESENT Complete 01/13/20 17:30 Nasal Nares - Final Complete 01/13/20 17:30 Nasal Nares - Final Complete 01/14/20 22:55 Rectum Received Sarkis Guthrie MD Jan 16, 2020 14:08
[2020-01-16] MEDS: cefTRIAXone 1 GM in D5W 55 ML IVPB SCH (15:00)
[2020-01-16 16:00] VITALS: BP 109/69
[2020-01-16 21:00] VITALS: BP 140/59
[2020-01-17] VITALS: BP 134/69
[2020-01-17] MEDS: Promethazine/Codeine 5ml UD ORAL PRN ×3 (03:58→17:32)
[2020-01-17 04:00] VITALS: BP 99/69
[2020-01-17 05:34] LABS: BASOPHILS % (AUTO) 1.3 % (0.0-2.0); EOSINOPHILS % (AUTO) 4.2 % (0.0-3.0); HEMATOCRIT 38.9 % (42.0-52.0); HEMOGLOBIN 14.2 G/DL (14.2-18.0); LYMPHOCYTES % (AUTO) 24.6 % (20.0-45.0); MEAN CORPUSCULAR VOLUME 89 FL (80-99); MONOCYTES % (AUTO) 10.4 % (1.0-10.0); NEUTROPHILS % (AUTO) 59.4 % (45.0-75.0); PLATELET COUNT 317 K/UL (150-450); RED BLOOD COUNT 4.36 M/UL (4.70-6.10); RED CELL DISTRIBUTION WIDTH 11.7 % (11.6-14.8); WHITE BLOOD COUNT 7.9 K/UL (4.8-10.8)
[2020-01-17 06:06] LABS: ALANINE AMINOTRANSFERASE 41 U/L (12-78); ALBUMIN 3.5 G/DL (3.4-5.0); ALBUMIN/GLOBULIN RATIO 0.8 (1.0-2.7); ALKALINE PHOSPHATASE 129 U/L (46-116); ANION GAP 12 mmol/L (5-15); ASPARTATE AMINO TRANSFERASE 32 U/L (15-37); BILIRUBIN,TOTAL 0.4 MG/DL (0.2-1.0); BLOOD UREA NITROGEN 27 mg/dL (7-18); CALCIUM 9.6 MG/DL (8.5-10.1); CARBON DIOXIDE 30 MMOL/L (21-32); CHLORIDE 95 MMOL/L (98-107); CREATININE 1.3 MG/DL (0.55-1.30); PHOSPHORUS 4.2 MG/DL (2.5-4.9); POTASSIUM 3.7 MMOL/L (3.5-5.1); SODIUM 137 MMOL/L (136-145)
[2020-01-17] MEDS: NovoLOG Insulin Flexpen SUBQ SCH ×4 (06:26→20:54)
[2020-01-17 08:00] VITALS: BP 117/74
[2020-01-17] MEDS: Aspirin EC 81mg tab ORAL SCH (09:20)
[2020-01-17] MEDS: Theophylline ER 100mg ORAL SCH ×2 (09:21→20:52)
[2020-01-17] MEDS: Doxycycline Monohydrate 100mg ORAL SCH ×2 (09:21→20:59)
[2020-01-17] MEDS: BuPROPion SR 150mg tab ORAL SCH ×2 (09:21→20:52)
[2020-01-17] MEDS: Heparin 5000 units/ml inj SUBQ SCH ×2 (09:24→20:53)
--- NOTE | 2020-01-17 10:00 | Infectious Diseases Prog Note ---
Assessment/Plan Assessment/Plan ASSESSMENT: The patient is a 54-year-old male with: Shortness of breath Afebrile Elevated white blood cells Leukopenia Rule out probable Covid-19 History of CHF. istory of CAD History of hypothyroidism. History of hypertension. History of chronic obstructive pulmonary disease. Liver cirrhosis. History of drug abuse in the past. GERD PLAN: cont patient on doxycycline and Rocephin day # 4/5 Monitor CBC. Monitor BMP. Monitor cultures. Monitor chest x-ray. CT of the chest P Subjective Allergies: Coded Allergies: No Known Allergies (Unverified , 12/08/19) Subjective comfortable Objective Vital Signs Last 24 Hour Vital Signs Date Time Temp Pulse Resp B/P (MAP) Pulse Ox O2 Delivery O2 Flow Rate FiO2 01/17/20 09:21 117/74 01/17/20 08:21 Room Air 01/17/20 08:00 96.4 102 17 117/74 (88) 95 01/17/20 08:00 104 01/17/20 07:00 95 Room Air 21 01/17/20 04:00 95 01/17/20 04:00 97.2 97 19 99/69 (79) 96 01/17/20 00:00 104 01/17/20 00:00 97.9 104 19 134/69 (90) 96 01/16/20 21:00 Room Air 01/16/20 21:00 97.2 108 19 140/59 (86) 96 01/16/20 20:00 113 01/16/20 18:55 96 Nasal Cannula 3.0 32 01/16/20 17:42 109/69 01/16/20 16:00 116 01/16/20 16:00 97.9 113 20 109/69 (82) 95 01/16/20 13:00 110/82 01/16/20 12:00 107 01/16/20 11:14 97.6 108 19 110/82 (91) 93 Height (Feet): 5 Height (Inches): 4.00 Weight (Pounds): 249 HEENT: anicteric Respiratory/Chest: no respiratory distress Cardiovascular: regularly irregular Abdomen: no organomegaly Microbiology Date/Time Source Procedure Growth Status 01/14/20 22:55 Rectum - Final NO CARBAPENEM-RESISTANT ENTEROBACTERI... Complete 01/14/20 22:55 Rectum VRE Culture - Final NO VANCOMYCIN RESISTANT ENTEROCOCCUS ... Complete Laboratory Tests Test 01/17/20 04:20 White Blood Count 7.9 K/UL (4.8-10.8) Red Blood Count 4.36 M/UL (4.70-6.10) L Hemoglobin 14.2 G/DL (14.2-18.0) Hematocrit 38.9 % (42.0-52.0) L Mean Corpuscular Volume 89 FL (80-99) Mean Corpuscular Hemoglobin 32.6 PG (27.0-31.0) H Mean Corpuscular Hemoglobin Concent 36.5 G/DL (32.0-36.0) H Red Cell Distribution Width 11.7 % (11.6-14.8) Platelet Count 317 K/UL (150-450) Mean Platelet Volume 5.3 FL (6.5-10.1) L Neutrophils (%) (Auto) 59.4 % (45.0-75.0) Lymphocytes (%) (Auto) 24.6 % (20.0-45.0) Monocytes (%) (Auto) 10.4 % (1.0-10.0) H Eosinophils (%) (Auto) 4.2 % (0.0-3.0) H Basophils (%) (Auto) 1.3 % (0.0-2.0) Erythrocyte Sedimentation Rate 63 MM/HR (0-20) H Sodium Level 137 MMOL/L (136-145) Potassium Level 3.7 MMOL/L (3.5-5.1) Chloride Level 95 MMOL/L (98-107) L Carbon Dioxide Level 30 MMOL/L (21-32) Anion Gap 12 mmol/L (5-15) Blood Urea Nitrogen 27 mg/dL (7-18) H Creatinine 1.3 MG/DL (0.55-1.30) Estimat Glomerular Filtration Rate 57.3 mL/min (>60) Glucose Level 389 MG/DL (74-106) H Calcium Level 9.6 MG/DL (8.5-10.1) Phosphorus Level 4.2 MG/DL (2.5-4.9) Magnesium Level 2.1 MG/DL (1.8-2.4) Total Bilirubin 0.4 MG/DL (0.2-1.0) Aspartate Amino Transf (AST/SGOT) 32 U/L (15-37) Alanine Aminotransferase (ALT/SGPT) 41 U/L (12-78) Alkaline Phosphatase 129 U/L (46-116) H C-Reactive Protein, Quantitative 3.1 mg/dL (0.00-0.90) H Pro-B-Type Natriuretic Peptide 30 pg/mL (0-125) Total Protein 7.9 G/DL (6.4-8.2) Albumin 3.5 G/DL (3.4-5.0) Globulin 4.4 g/dL Albumin/Globulin Ratio 0.8 (1.0-2.7) L Current Medications Medications (Trade) Dose Ordered Sig/Rodney Route PRN Reason Start Time Stop Time Status Last Admin Dose Admin Acetaminophen (Tylenol) 650 mg Q4H PRN ORAL Fever 01/13/20 21:45 02/12/20 21:44 Albuterol/ Ipratropium (Albuterol/ Ipratropium) 3 ml EVERY 4 HOURS PRN HHN Shortness of Breath 01/13/20 21:45 01/18/20 21:44 Aspirin (Ecotrin) 81 mg DAILY ORAL 01/14/20 09:00 02/28/20 08:59 01/17/20 09:20 Bupropion HCl (Wellbutrin SR) 150 mg EVERY 12 HOURS ORAL 01/14/20 09:00 02/13/20 08:59 01/17/20 09:21 Ceftriaxone Sodium 1 gm/ Dextrose 55 ml @ 110 mls/hr Q24H IVPB 01/14/20 16:00 01/21/20 15:59 01/16/20 15:00 Clopidogrel Bisulfate (Plavix) 75 mg DAILY ORAL 01/14/20 09:00 02/13/20 08:59 01/17/20 09:21 Dextrose (Dextrose 50%) 25 ml Q30M PRN IV Hypoglycemia 01/13/20 21:45 02/12/20 21:44 Dextrose (Dextrose 50%) 50 ml Q30M PRN IV Hypoglycemia 01/13/20 21:45 02/12/20 21:44 Doxycycline Monohydrate (Doxycycline Monohydrate) 100 mg Q12HR@1000,2200 ORAL 01/14/20 16:00 01/21/20 15:59 01/17/20 09:21 Furosemide (Lasix) 40 mg EVERY 8 HOURS IV 01/13/20 22:00 02/12/20 21:59 01/16/20 21:56 Gabapentin (Neurontin) 300 mg BEDTIME ORAL 01/13/20 22:30 02/12/20 22:29 01/16/20 20:47 Heparin Sodium (Porcine) (Heparin 5000 units/ml) 5,000 units EVERY 12 HOURS SUBQ 01/14/20 09:00 02/28/20 08:59 01/17/20 09:24 Insulin Aspart (NovoLOG) BEFORE MEALS AND HS SUBQ 01/14/20 06:30 02/13/20 06:29 01/17/20 06:26 Isosorbide Dinitrate (Isordil) 20 mg TID ORAL 01/14/20 18:00 02/13/20 17:59 01/17/20 09:21 Mirtazapine (Remeron) 7.5 mg BEDTIME ORAL 01/13/20 22:30 02/12/20 22:29 Ondansetron HCl (Zofran) 4 mg Q6H PRN IVP Nausea & Vomiting 01/13/20 21:45 02/12/20 21:44 01/16/20 20:47 Polyethylene Glycol (Miralax) 17 gm DAILYPRN PRN ORAL Constipation 01/13/20 21:45 02/12/20 21:44 Promethazine HCl/ Codeine (Phenergan with Codeine) 5 ml Q4H PRN ORAL For Cough 01/13/20 22:00 02/12/20 21:59 01/17/20 09:31 Temazepam (Restoril) 15 mg HSPRN PRN ORAL Insomnia 01/13/20 22:30 01/20/20 22:29 Theophylline (Jose-Dur) 100 mg EVERY 12 HOURS ORAL 01/14/20 09:00 02/13/20 08:59 01/17/20 09:21 eBrry Taylor MD Jan 17, 2020 10:00
--- NOTE | 2020-01-17 10:10 | Diagnostic Imaging Report ---
Indication: Cough Technique: One view of the chest Comparison: 01/14/2020 Findings: There are median sternotomy sutures. There is increasing thickening of the minor fissure and increasing atelectasis at the right lung base. There may be some pleural fluid developing on the right. There is some atelectasis at the left lung base. The left lung and pleural space are otherwise clear. There is some crowding of the bronchovascular markings. Impression: Increasing bibasilar atelectasis, PICC and the right. Possible developing right pleural effusion
[2020-01-17 12:00] VITALS: BP 114/69
--- NOTE | 2020-01-17 12:42 | Pulmonology Progress Note ---
Assessment/Plan Problems: (1) Acute bronchitis (2) Viral syndrome (3) Diabetes (4) Hypothyroid (5) HTN (hypertension) Assessment/Plan sputum culture and blood cultures are negative awaiting COVID-19 virus results check bnp and cxr in am sliding scale watch bun/creatinine, hold lasix 80Q 8 hours. because of hypotension and tachycardia and hemoconcentration, Hem mable to 14 from 12 dvt prophylaxis. Subjective ROS Limited/Unobtainable: No Constitutional: Reports: no symptoms HEENT: Repors: no symptoms Respiratory: Reports: no symptoms Allergies: Coded Allergies: No Known Allergies (Unverified , 12/08/19) Objective Last 24 Hour Vital Signs Date Time Temp Pulse Resp B/P (MAP) Pulse Ox O2 Delivery O2 Flow Rate FiO2 01/17/20 12:19 117/74 01/17/20 12:00 112 01/17/20 12:00 97.5 105 18 114/69 (84) 95 01/17/20 09:21 117/74 01/17/20 08:21 Room Air 01/17/20 08:00 96.4 102 17 117/74 (88) 95 01/17/20 08:00 104 01/17/20 07:00 95 Room Air 21 01/17/20 04:00 95 01/17/20 04:00 97.2 97 19 99/69 (79) 96 01/17/20 00:00 104 01/17/20 00:00 97.9 104 19 134/69 (90) 96 01/16/20 21:00 Room Air 01/16/20 21:00 97.2 108 19 140/59 (86) 96 01/16/20 20:00 113 01/16/20 18:55 96 Nasal Cannula 3.0 32 01/16/20 17:42 109/69 01/16/20 16:00 116 01/16/20 16:00 97.9 113 20 109/69 (82) 95 01/16/20 13:00 110/82 Intake and Output 01/16/20 01/17/20 19:00 07:00 Intake Total 880 ml Output Total 1000 ml Balance 880 ml -1000 ml Intake Oral 880 ml Output Urine Total 1000 ml # Voids 3 3 # Bowel Movements 1 General Appearance: WD/WN HEENT: normocephalic, atraumatic Respiratory/Chest: chest wall non-tender, lungs clear Cardiovascular: normal peripheral pulses, normal rate Abdomen: normal bowel sounds, soft, non tender, no organomegaly Genitourinary: normal external genitalia Skin: no ulcers 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 Complete 01/14/20 22:55 Rectum - Final NO CARBAPENEM-RESISTANT ENTEROBACTERI... Complete 01/14/20 22:55 Rectum VRE Culture - Final NO VANCOMYCIN RESISTANT ENTEROCOCCUS ... Complete Laboratory Tests 01/17/20 04:20: White Blood Count 7.9, Red Blood Count 4.36L, Hemoglobin 14.2, Hematocrit 38.9L , Mean Corpuscular Volume 89, Mean Corpuscular Hemoglobin 32.6H, Mean Corpuscular Hemoglobin Concent 36.5H, Red Cell Distribution Width 11.7, Platelet Count 317, Mean Platelet Volume 5.3L, Neutrophils (%) (Auto) 59.4, Lymphocytes (%) (Auto) 24.6, Monocytes (%) (Auto) 10.4H, Eosinophils (%) (Auto) 4.2H, Basophils (%) (Auto) 1.3, Erythrocyte Sedimentation Rate 63H, Sodium Level 137, Potassium Level 3.7, Chloride Level 95L, Carbon Dioxide Level 30, Anion Gap 12, Blood Urea Nitrogen 27H, Creatinine 1.3, Estimat Glomerular Filtration Rate 57.3, Glucose Level 389H, Calcium Level 9.6, Phosphorus Level 4.2, Magnesium Level 2.1, Total Bilirubin 0.4, Aspartate Amino Transf (AST/SGOT ) 32, Alanine Aminotransferase (ALT/SGPT) 41, Alkaline Phosphatase 129H, C- Reactive Protein, Quantitative 3.1H, Pro-B-Type Natriuretic Peptide 30, Total Protein 7.9, Albumin 3.5, Globulin 4.4, Albumin/Globulin Ratio 0.8L Current Medications Medications (Trade) Dose Ordered Sig/Rodney Route PRN Reason Start Time Stop Time Status Last Admin Dose Admin Acetaminophen (Tylenol) 650 mg Q4H PRN ORAL Fever 01/13/20 21:45 02/12/20 21:44 Albuterol/ Ipratropium (Albuterol/ Ipratropium) 3 ml EVERY 4 HOURS PRN HHN Shortness of Breath 01/13/20 21:45 01/18/20 21:44 Aspirin (Ecotrin) 81 mg DAILY ORAL 01/14/20 09:00 02/28/20 08:59 01/17/20 09:20 Bupropion HCl (Wellbutrin SR) 150 mg EVERY 12 HOURS ORAL 01/14/20 09:00 02/13/20 08:59 01/17/20 09:21 Ceftriaxone Sodium 1 gm/ Dextrose 55 ml @ 110 mls/hr Q24H IVPB 01/14/20 16:00 01/19/20 15:59 01/16/20 15:00 Clopidogrel Bisulfate (Plavix) 75 mg DAILY ORAL 01/14/20 09:00 02/13/20 08:59 01/17/20 09:21 Dextrose (Dextrose 50%) 25 ml Q30M PRN IV Hypoglycemia 01/13/20 21:45 02/12/20 21:44 Dextrose (Dextrose 50%) 50 ml Q30M PRN IV Hypoglycemia 01/13/20 21:45 02/12/20 21:44 Doxycycline Monohydrate (Doxycycline Monohydrate) 100 mg Q12HR@1000,2200 ORAL 01/14/20 16:00 01/19/20 15:59 01/17/20 09:21 Furosemide (Lasix) 40 mg EVERY 8 HOURS IV 01/13/20 22:00 02/12/20 21:59 01/16/20 21:56 Gabapentin (Neurontin) 300 mg BEDTIME ORAL 01/13/20 22:30 02/12/20 22:29 01/16/20 20:47 Heparin Sodium (Porcine) (Heparin 5000 units/ml) 5,000 units EVERY 12 HOURS SUBQ 01/14/20 09:00 02/28/20 08:59 01/17/20 09:24 Insulin Aspart (NovoLOG) BEFORE MEALS AND HS SUBQ 01/14/20 06:30 02/13/20 06:29 01/17/20 12:12 Isosorbide Dinitrate (Isordil) 20 mg TID ORAL 01/14/20 18:00 02/13/20 17:59 01/17/20 12:19 Mirtazapine (Remeron) 7.5 mg BEDTIME ORAL 01/13/20 22:30 02/12/20 22:29 Nitroglycerin (Ntg) 0.4 mg Q5M PRN SL Prn Chest Pain 01/17/20 11:45 02/16/20 11:44 Ondansetron HCl (Zofran) 4 mg Q6H PRN IVP Nausea & Vomiting 01/13/20 21:45 02/12/20 21:44 01/16/20 20:47 Polyethylene Glycol (Miralax) 17 gm DAILYPRN PRN ORAL Constipation 01/13/20 21:45 02/12/20 21:44 Promethazine HCl/ Codeine (Phenergan with Codeine) 5 ml Q4H PRN ORAL For Cough 01/13/20 22:00 02/12/20 21:59 01/17/20 09:31 Temazepam (Restoril) 15 mg HSPRN PRN ORAL Insomnia 01/13/20 22:30 01/20/20 22:29 Theophylline (Jose-Dur) 100 mg EVERY 12 HOURS ORAL 01/14/20 09:00 02/13/20 08:59 01/17/20 09:21 Richard Hood MD Jan 17, 2020 12:42
[2020-01-17 16:00] VITALS: BP 117/77
[2020-01-17] MEDS: cefTRIAXone 1 GM in D5W 55 ML IVPB SCH (16:00)
[2020-01-17] MEDS: Nitroglycerin Subl 0.4mg tab SL PRN (17:20)
--- NOTE | 2020-01-17 18:00 | Cardiology Progress Note ---
Assessment/Plan Assessment/Plan 1. Chronic recurrent chest pain, no evidence of myonecrosis. 2. Coronary artery disease status post coronary artery bypass grafting and previous stenting. 3. Obesity. 4. Possible small vessel coronary disease. 5. Diabetes mellitus. 6. Hypertension. in isolation for cov 19 labs noted dc lasix bnp normal cxr showed possible r effusion tele remains sinus all trop neg not had any fever since being admitted bp seem fine hr is a bit on the fast side is on albuteral hhn may need bb Subjective Subjective covid 19 isolation Objective Last 24 Hour Vital Signs Date Time Temp Pulse Resp B/P (MAP) Pulse Ox O2 Delivery O2 Flow Rate FiO2 01/17/20 17:20 117/77 01/17/20 17:20 117/77 01/17/20 16:00 97.1 118 19 117/77 (90) 94 01/17/20 16:00 112 01/17/20 12:19 117/74 01/17/20 12:00 112 01/17/20 12:00 97.5 105 18 114/69 (84) 95 01/17/20 09:21 117/74 01/17/20 08:21 Room Air 01/17/20 08:00 96.4 102 17 117/74 (88) 95 01/17/20 08:00 104 01/17/20 07:00 95 Room Air 21 01/17/20 04:00 95 01/17/20 04:00 97.2 97 19 99/69 (79) 96 01/17/20 00:00 104 01/17/20 00:00 97.9 104 19 134/69 (90) 96 01/16/20 21:00 Room Air 01/16/20 21:00 97.2 108 19 140/59 (86) 96 01/16/20 20:00 113 01/16/20 18:55 96 Nasal Cannula 3.0 32 Intake and Output 01/16/20 01/17/20 19:00 07:00 Intake Total 880 ml Output Total 1000 ml Balance 880 ml -1000 ml Intake Oral 880 ml Output Urine Total 1000 ml # Voids 3 3 # Bowel Movements 1 Laboratory Tests Test 01/17/20 04:20 White Blood Count 7.9 K/UL (4.8-10.8) Red Blood Count 4.36 M/UL (4.70-6.10) L Hemoglobin 14.2 G/DL (14.2-18.0) Hematocrit 38.9 % (42.0-52.0) L Mean Corpuscular Volume 89 FL (80-99) Mean Corpuscular Hemoglobin 32.6 PG (27.0-31.0) H Mean Corpuscular Hemoglobin Concent 36.5 G/DL (32.0-36.0) H Red Cell Distribution Width 11.7 % (11.6-14.8) Platelet Count 317 K/UL (150-450) Mean Platelet Volume 5.3 FL (6.5-10.1) L Neutrophils (%) (Auto) 59.4 % (45.0-75.0) Lymphocytes (%) (Auto) 24.6 % (20.0-45.0) Monocytes (%) (Auto) 10.4 % (1.0-10.0) H Eosinophils (%) (Auto) 4.2 % (0.0-3.0) H Basophils (%) (Auto) 1.3 % (0.0-2.0) Erythrocyte Sedimentation Rate 63 MM/HR (0-20) H Sodium Level 137 MMOL/L (136-145) Potassium Level 3.7 MMOL/L (3.5-5.1) Chloride Level 95 MMOL/L (98-107) L Carbon Dioxide Level 30 MMOL/L (21-32) Anion Gap 12 mmol/L (5-15) Blood Urea Nitrogen 27 mg/dL (7-18) H Creatinine 1.3 MG/DL (0.55-1.30) Estimat Glomerular Filtration Rate 57.3 mL/min (>60) Glucose Level 389 MG/DL (74-106) H Calcium Level 9.6 MG/DL (8.5-10.1) Phosphorus Level 4.2 MG/DL (2.5-4.9) Magnesium Level 2.1 MG/DL (1.8-2.4) Total Bilirubin 0.4 MG/DL (0.2-1.0) Aspartate Amino Transf (AST/SGOT) 32 U/L (15-37) Alanine Aminotransferase (ALT/SGPT) 41 U/L (12-78) Alkaline Phosphatase 129 U/L (46-116) H C-Reactive Protein, Quantitative 3.1 mg/dL (0.00-0.90) H Pro-B-Type Natriuretic Peptide 30 pg/mL (0-125) Total Protein 7.9 G/DL (6.4-8.2) Albumin 3.5 G/DL (3.4-5.0) Globulin 4.4 g/dL Albumin/Globulin Ratio 0.8 (1.0-2.7) L Microbiology Date/Time Source Procedure Growth Status 01/14/20 22:55 Nasal Nares MRSA Culture - Final NO METHICILLIN RESISTANT STAPH AUREUS... Complete 01/14/20 22:55 Rectum - Final NO CARBAPENEM-RESISTANT ENTEROBACTERI... Complete 01/14/20 22:55 Rectum VRE Culture - Final NO VANCOMYCIN RESISTANT ENTEROCOCCUS ... Complete Sarkis Guthrie MD Jan 17, 2020 18:00
[2020-01-17 20:00] VITALS: BP 116/65
[2020-01-18] VITALS: BP 118/70
[2020-01-18] MEDS: Promethazine/Codeine 5ml UD ORAL PRN ×4 (03:02→20:55)
[2020-01-18 04:00] VITALS: BP 118/70
[2020-01-18] MEDS: NovoLOG Insulin Flexpen SUBQ SCH ×4 (06:29→20:57)
[2020-01-18 07:43] LABS: BASOPHILS % (AUTO) 1.2 % (0.0-2.0); EOSINOPHILS % (AUTO) 3.5 % (0.0-3.0); HEMATOCRIT 40.1 % (42.0-52.0); HEMOGLOBIN 14.4 G/DL (14.2-18.0); LYMPHOCYTES % (AUTO) 22.5 % (20.0-45.0); MEAN CORPUSCULAR VOLUME 88 FL (80-99); MONOCYTES % (AUTO) 8.2 % (1.0-10.0); NEUTROPHILS % (AUTO) 64.6 % (45.0-75.0); PLATELET COUNT 338 K/UL (150-450); RED BLOOD COUNT 4.56 M/UL (4.70-6.10); RED CELL DISTRIBUTION WIDTH 11.4 % (11.6-14.8); WHITE BLOOD COUNT 8.6 K/UL (4.8-10.8)
[2020-01-18 08:00] VITALS: BP 139/88
[2020-01-18] MEDS: Theophylline ER 100mg ORAL SCH ×2 (09:22→20:55)
[2020-01-18] MEDS: Aspirin EC 81mg tab ORAL SCH (09:22)
[2020-01-18] MEDS: BuPROPion SR 150mg tab ORAL SCH ×2 (09:22→20:55)
[2020-01-18] MEDS: Doxycycline Monohydrate 100mg ORAL SCH ×2 (09:22→21:00)
[2020-01-18] MEDS: Heparin 5000 units/ml inj SUBQ SCH ×2 (09:25→20:57)
--- NOTE | 2020-01-18 09:52 | Infectious Diseases Prog Note ---
Assessment/Plan Assessment/Plan ASSESSMENT: The patient is a 54-year-old male with: Shortness of breath Afebrile Elevated white blood cells Leukopenia Rule out probable Covid-19 History of CHF. istory of CAD History of hypothyroidism. History of hypertension. History of chronic obstructive pulmonary disease. Liver cirrhosis. History of drug abuse in the past. GERD PLAN: cont patient on doxycycline and Rocephin day # 5/ Monitor CBC. Monitor BMP. Monitor cultures. Monitor chest x-ray. CT of the chest P Subjective Allergies: Coded Allergies: No Known Allergies (Unverified , 12/08/19) Subjective Afebrile Satting well on RA Objective Vital Signs Last 24 Hour Vital Signs Date Time Temp Pulse Resp B/P (MAP) Pulse Ox O2 Delivery O2 Flow Rate FiO2 01/18/20 09:29 96 Room Air 21 01/18/20 09:23 139/88 01/18/20 08:00 96.7 101 20 139/88 (105) 94 01/18/20 04:00 98.8 99 20 118/70 (86) 95 01/18/20 04:00 98 01/18/20 00:00 97.6 101 20 118/70 (86) 95 01/18/20 00:00 100 01/17/20 21:00 Room Air 01/17/20 20:00 97.6 107 19 116/65 (82) 95 01/17/20 20:00 111 01/17/20 18:56 96 Room Air 21 01/17/20 17:20 117/77 01/17/20 17:20 117/77 01/17/20 16:00 97.1 118 19 117/77 (90) 94 01/17/20 16:00 112 01/17/20 12:19 117/74 01/17/20 12:00 112 01/17/20 12:00 97.5 105 18 114/69 (84) 95 Height (Feet): 5 Height (Inches): 4.00 Weight (Pounds): 249 Objective Patients physical exam discussed with nurse Patient with NAD, No Respiratory distress, No tach tachycardia, Abd soft and not distended Laboratory Tests Test 01/18/20 04:00 01/18/20 08:31 White Blood Count 8.6 K/UL (4.8-10.8) Red Blood Count 4.56 M/UL (4.70-6.10) L Hemoglobin 14.4 G/DL (14.2-18.0) Hematocrit 40.1 % (42.0-52.0) L Mean Corpuscular Volume 88 FL (80-99) Mean Corpuscular Hemoglobin 31.6 PG (27.0-31.0) H Mean Corpuscular Hemoglobin Concent 35.9 G/DL (32.0-36.0) Red Cell Distribution Width 11.4 % (11.6-14.8) L Platelet Count 338 K/UL (150-450) Mean Platelet Volume 5.1 FL (6.5-10.1) L Neutrophils (%) (Auto) 64.6 % (45.0-75.0) Lymphocytes (%) (Auto) 22.5 % (20.0-45.0) Monocytes (%) (Auto) 8.2 % (1.0-10.0) Eosinophils (%) (Auto) 3.5 % (0.0-3.0) H Basophils (%) (Auto) 1.2 % (0.0-2.0) Erythrocyte Sedimentation Rate 62 MM/HR (0-20) H Sodium Level Pending Potassium Level Pending Chloride Level Pending Carbon Dioxide Level Pending Blood Urea Nitrogen Pending Creatinine Pending Estimat Glomerular Filtration Rate Pending Glucose Level Pending Calcium Level Pending Phosphorus Level Pending Magnesium Level Pending Total Bilirubin Pending Aspartate Amino Transf (AST/SGOT) Pending Alanine Aminotransferase (ALT/SGPT) Pending Alkaline Phosphatase Pending C-Reactive Protein, Quantitative Pending Total Protein Pending Albumin Pending Globulin Pending Current Medications Medications (Trade) Dose Ordered Sig/Rodney Route PRN Reason Start Time Stop Time Status Last Admin Dose Admin Acetaminophen (Tylenol) 650 mg Q4H PRN ORAL Fever 01/13/20 21:45 02/12/20 21:44 Albuterol/ Ipratropium (Albuterol/ Ipratropium) 3 ml EVERY 4 HOURS PRN HHN Shortness of Breath 01/13/20 21:45 01/18/20 21:44 Aspirin (Ecotrin) 81 mg DAILY ORAL 01/14/20 09:00 02/28/20 08:59 01/18/20 09:22 Bupropion HCl (Wellbutrin SR) 150 mg EVERY 12 HOURS ORAL 3/17/20 09:00 02/13/20 08:59 01/18/20 09:22 Ceftriaxone Sodium 1 gm/ Dextrose 55 ml @ 110 mls/hr Q24H IVPB 01/14/20 16:00 01/19/20 15:59 01/17/20 16:00 Clopidogrel Bisulfate (Plavix) 75 mg DAILY ORAL 01/14/20 09:00 02/13/20 08:59 01/18/20 09:22 Dextrose (Dextrose 50%) 25 ml Q30M PRN IV Hypoglycemia 01/13/20 21:45 02/12/20 21:44 Dextrose (Dextrose 50%) 50 ml Q30M PRN IV Hypoglycemia 01/13/20 21:45 02/12/20 21:44 Doxycycline Monohydrate (Doxycycline Monohydrate) 100 mg Q12HR@1000,2200 ORAL 01/14/20 16:00 01/19/20 15:59 01/18/20 09:22 Gabapentin (Neurontin) 300 mg BEDTIME ORAL 01/13/20 22:30 02/12/20 22:29 01/17/20 20:52 Heparin Sodium (Porcine) (Heparin 5000 units/ml) 5,000 units EVERY 12 HOURS SUBQ 01/14/20 09:00 02/28/20 08:59 01/18/20 09:25 Insulin Aspart (NovoLOG) BEFORE MEALS AND HS SUBQ 01/14/20 06:30 02/13/20 06:29 01/18/20 06:29 Isosorbide Dinitrate (Isordil) 20 mg TID ORAL 01/14/20 18:00 02/13/20 17:59 01/18/20 09:23 Mirtazapine (Remeron) 7.5 mg BEDTIME ORAL 01/13/20 22:30 02/12/20 22:29 Nitroglycerin (Ntg) 0.4 mg Q5M PRN SL Prn Chest Pain 01/17/20 11:45 02/16/20 11:44 01/17/20 17:20 Ondansetron HCl (Zofran) 4 mg Q6H PRN IVP Nausea & Vomiting 01/13/20 21:45 02/12/20 21:44 01/18/20 03:10 Polyethylene Glycol (Miralax) 17 gm DAILYPRN PRN ORAL Constipation 01/13/20 21:45 02/12/20 21:44 Promethazine HCl/ Codeine (Phenergan with Codeine) 5 ml Q4H PRN ORAL For Cough 01/13/20 22:00 02/12/20 21:59 01/18/20 08:18 Temazepam (Restoril) 15 mg HSPRN PRN ORAL Insomnia 01/13/20 22:30 01/20/20 22:29 Theophylline (Jose-Dur) 100 mg EVERY 12 HOURS ORAL 01/14/20 09:00 02/13/20 08:59 01/18/20 09:22 Billy Burger MD Jan 18, 2020 09:52
[2020-01-18 10:38] LABS: ALANINE AMINOTRANSFERASE 52 U/L (12-78); ALBUMIN 3.4 G/DL (3.4-5.0); ALBUMIN/GLOBULIN RATIO 0.8 (1.0-2.7); ALKALINE PHOSPHATASE 136 U/L (46-116); ANION GAP 9 mmol/L (5-15); ASPARTATE AMINO TRANSFERASE 20 U/L (15-37); BILIRUBIN,TOTAL 0.3 MG/DL (0.2-1.0); BLOOD UREA NITROGEN 20 mg/dL (7-18); CALCIUM 9.6 MG/DL (8.5-10.1); CARBON DIOXIDE 26 MMOL/L (21-32); CHLORIDE 93 MMOL/L (98-107); CREATININE 1.2 MG/DL (0.55-1.30); PHOSPHORUS 3.5 MG/DL (2.5-4.9); POTASSIUM 4.2 MMOL/L (3.5-5.1); SODIUM 128 MMOL/L (136-145)
--- NOTE | 2020-01-18 10:43 | Pulmonology Progress Note ---
Assessment/Plan Assessment/Plan ASSESSMENT Acute bronchitis Viral syndrome Chronic recurrent chest pain CAD with hx of CABG DM HTN Hypothyroidism Obesity PLAN of CARE tele O2 HHN PRN empiric antibiotics BCX NGTD SCX NGT influenza swab NGT COVID 19 pending isolation : droplet and contact DVT prophylaxis serial troponin negative, EKG no acute ischemic changes, ruled out for acute OH. Echo with pEF 55 to 60% , no WMA per cardio-> no evidence of myonecrosis d/aPLT, nitrate Lasix dc monitor renal parameters BS with SSI supportive care case discussed and evaluated by supervising physician Subjective Allergies: Coded Allergies: No Known Allergies (Unverified , 12/08/19) Subjective no fevers, no leukocytosis + cough, dry pulse ox stable remains in isolation COVID 19 pending Objective Last 24 Hour Vital Signs Date Time Temp Pulse Resp B/P (MAP) Pulse Ox O2 Delivery O2 Flow Rate FiO2 01/18/20 09:29 96 Room Air 21 01/18/20 09:23 139/88 01/18/20 09:00 Room Air 01/18/20 08:10 103 01/18/20 08:00 96.7 101 20 139/88 (105) 94 01/18/20 04:00 98.8 99 20 118/70 (86) 95 01/18/20 04:00 98 01/18/20 00:00 97.6 101 20 118/70 (86) 95 01/18/20 00:00 100 01/17/20 21:00 Room Air 01/17/20 20:00 97.6 107 19 116/65 (82) 95 01/17/20 20:00 111 01/17/20 18:56 96 Room Air 21 01/17/20 17:20 117/77 01/17/20 17:20 117/77 01/17/20 16:00 97.1 118 19 117/77 (90) 94 01/17/20 16:00 112 01/17/20 12:19 117/74 01/17/20 12:00 112 01/17/20 12:00 97.5 105 18 114/69 (84) 95 Intake and Output 01/17/20 01/18/20 19:00 07:00 Intake Total 1200 ml 1200 ml Output Total 550 ml Balance 1200 ml 650 ml Intake Oral 1200 ml 1200 ml Output Urine Total 550 ml # Voids 3 3 General Appearance: other - obese male in NAD HEENT: normocephalic, atraumatic, anicteric, mucous membranes moist Respiratory/Chest: rhonchi - few scattered rhonchi Cardiovascular: regular rhythm - SR occas low tachy , tachycardia - low tachy Abdomen: normal bowel sounds, soft, non tender - obese Extremities: other - +1 edema Skin: no rash, other Neurologic/Psychiatric: alert, oriented x 3, responsive Laboratory Tests 01/18/20 04:00: White Blood Count 8.6, Red Blood Count 4.56L, Hemoglobin 14.4, Hematocrit 40.1L , Mean Corpuscular Volume 88, Mean Corpuscular Hemoglobin 31.6H, Mean Corpuscular Hemoglobin Concent 35.9, Red Cell Distribution Width 11.4L, Platelet Count 338, Mean Platelet Volume 5.1L, Neutrophils (%) (Auto) 64.6, Lymphocytes (%) (Auto) 22.5, Monocytes (%) (Auto) 8.2, Eosinophils (%) (Auto) 3.5H, Basophils (%) (Auto) 1.2, Erythrocyte Sedimentation Rate 62H 01/18/20 09:40: Sodium Level [Pending], Potassium Level [Pending], Chloride Level [Pending], Carbon Dioxide Level [Pending], Blood Urea Nitrogen [Pending], Creatinine [ Pending], Estimat Glomerular Filtration Rate [Pending], Glucose Level [Pending] , Calcium Level [Pending], Phosphorus Level [Pending], Magnesium Level [Pending] , Total Bilirubin [Pending], Aspartate Amino Transf (AST/SGOT) [Pending], Alanine Aminotransferase (ALT/SGPT) [Pending], Alkaline Phosphatase [Pending], C -Reactive Protein, Quantitative [Pending], Total Protein [Pending], Albumin [ Pending], Globulin [Pending] Current Medications Medications (Trade) Dose Ordered Sig/Rodney Route PRN Reason Start Time Stop Time Status Last Admin Dose Admin Acetaminophen (Tylenol) 650 mg Q4H PRN ORAL Fever 01/13/20 21:45 02/12/20 21:44 Albuterol/ Ipratropium (Albuterol/ Ipratropium) 3 ml EVERY 4 HOURS PRN HHN Shortness of Breath 01/13/20 21:45 01/18/20 21:44 Aspirin (Ecotrin) 81 mg DAILY ORAL 01/14/20 09:00 02/28/20 08:59 01/18/20 09:22 Bupropion HCl (Wellbutrin SR) 150 mg EVERY 12 HOURS ORAL 01/14/20 09:00 02/13/20 08:59 01/18/20 09:22 Ceftriaxone Sodium 1 gm/ Dextrose 55 ml @ 110 mls/hr Q24H IVPB 01/14/20 16:00 01/19/20 15:59 01/17/20 16:00 Clopidogrel Bisulfate (Plavix) 75 mg DAILY ORAL 01/14/20 09:00 02/13/20 08:59 01/18/20 09:22 Dextrose (Dextrose 50%) 25 ml Q30M PRN IV Hypoglycemia 01/13/20 21:45 02/12/20 21:44 Dextrose (Dextrose 50%) 50 ml Q30M PRN IV Hypoglycemia 01/13/20 21:45 02/12/20 21:44 Doxycycline Monohydrate (Doxycycline Monohydrate) 100 mg Q12HR@1000,2200 ORAL 01/14/20 16:00 01/19/20 15:59 01/18/20 09:22 Gabapentin (Neurontin) 300 mg BEDTIME ORAL 01/13/20 22:30 02/12/20 22:29 01/17/20 20:52 Heparin Sodium (Porcine) (Heparin 5000 units/ml) 5,000 units EVERY 12 HOURS SUBQ 01/14/20 09:00 02/28/20 08:59 01/18/20 09:25 Insulin Aspart (NovoLOG) BEFORE MEALS AND HS SUBQ 01/14/20 06:30 02/13/20 06:29 01/18/20 06:29 Isosorbide Dinitrate (Isordil) 20 mg TID ORAL 01/14/20 18:00 02/13/20 17:59 01/18/20 09:23 Mirtazapine (Remeron) 7.5 mg BEDTIME ORAL 01/13/20 22:30 02/12/20 22:29 Nitroglycerin (Ntg) 0.4 mg Q5M PRN SL Prn Chest Pain 01/17/20 11:45 02/16/20 11:44 01/17/20 17:20 Ondansetron HCl (Zofran) 4 mg Q6H PRN IVP Nausea & Vomiting 01/13/20 21:45 02/12/20 21:44 01/18/20 03:10 Polyethylene Glycol (Miralax) 17 gm DAILYPRN PRN ORAL Constipation 01/13/20 21:45 02/12/20 21:44 Promethazine HCl/ Codeine (Phenergan with Codeine) 5 ml Q4H PRN ORAL For Cough 01/13/20 22:00 02/12/20 21:59 01/18/20 08:18 Temazepam (Restoril) 15 mg HSPRN PRN ORAL Insomnia 01/13/20 22:30 01/20/20 22:29 Theophylline (Jose-Dur) 100 mg EVERY 12 HOURS ORAL 01/14/20 09:00 02/13/20 08:59 01/18/20 09:22 Patricia Brewster NP Jan 18, 2020 10:43
[2020-01-18] MEDS ORDERED: Albuterol/Ipratropium 3ml neb HHN PRN (10:45)
[2020-01-18 12:00] VITALS: BP 111/71
[2020-01-18 16:00] VITALS: BP 113/65
[2020-01-18] MEDS: cefTRIAXone 1 GM in D5W 55 ML IVPB SCH (16:16)
--- NOTE | 2020-01-18 17:56 | Cardiology Progress Note ---
Assessment/Plan Problem List: (1) Chest pain (2) Dizziness (3) Diabetes (4) HTN (hypertension) Status: stable, progressing Status Narrative Chest pain - hx of CABG,PCI. Has ruled out for ND w/ negative troponins . ? stress nuclear testing Dizziness w/ standing Assessment/Plan Consider stress testing - will d/w Dr. Guthrie Check orthostatic VS to determine if ortho hypotension causing dizziness. Subjective ROS Limited/Unobtainable: No Subjective Cardiology for Dr. Guthrie Mr Falk c/o chest pain and dizziness w/ walking. Objective Last 24 Hour Vital Signs Date Time Temp Pulse Resp B/P (MAP) Pulse Ox O2 Delivery O2 Flow Rate FiO2 01/18/20 17:23 113/65 01/18/20 16:00 98.1 111 18 113/65 (81) 92 01/18/20 12:21 139/88 01/18/20 12:00 98.1 111 20 111/71 (84) 94 01/18/20 11:43 108 01/18/20 09:29 96 Room Air 21 01/18/20 09:23 139/88 01/18/20 09:00 Room Air 01/18/20 08:10 103 01/18/20 08:00 96.7 101 20 139/88 (105) 94 01/18/20 04:00 98.8 99 20 118/70 (86) 95 01/18/20 04:00 98 01/18/20 00:00 97.6 101 20 118/70 (86) 95 01/18/20 00:00 100 01/17/20 21:00 Room Air 01/17/20 20:00 97.6 107 19 116/65 (82) 95 01/17/20 20:00 111 01/17/20 18:56 96 Room Air 21 General Appearance: WD/WN, no apparent distress, alert EENT: PERRL/EOMI Neck: supple, no JVD Rhythm: NSR Cardiovascular: normal rate, regular rhythm, no gallop/murmur Respiratory/Chest: other - few R base crackles Abdomen: non tender, soft Extremities: no swelling Intake and Output 01/17/20 01/18/20 19:00 07:00 Intake Total 1200 ml 1200 ml Output Total 550 ml Balance 1200 ml 650 ml Intake Oral 1200 ml 1200 ml Output Urine Total 550 ml # Voids 3 3 Laboratory Tests Test 3/21/20 04:00 01/18/20 09:40 White Blood Count 8.6 K/UL (4.8-10.8) Red Blood Count 4.56 M/UL (4.70-6.10) L Hemoglobin 14.4 G/DL (14.2-18.0) Hematocrit 40.1 % (42.0-52.0) L Mean Corpuscular Volume 88 FL (80-99) Mean Corpuscular Hemoglobin 31.6 PG (27.0-31.0) H Mean Corpuscular Hemoglobin Concent 35.9 G/DL (32.0-36.0) Red Cell Distribution Width 11.4 % (11.6-14.8) L Platelet Count 338 K/UL (150-450) Mean Platelet Volume 5.1 FL (6.5-10.1) L Neutrophils (%) (Auto) 64.6 % (45.0-75.0) Lymphocytes (%) (Auto) 22.5 % (20.0-45.0) Monocytes (%) (Auto) 8.2 % (1.0-10.0) Eosinophils (%) (Auto) 3.5 % (0.0-3.0) H Basophils (%) (Auto) 1.2 % (0.0-2.0) Erythrocyte Sedimentation Rate 62 MM/HR (0-20) H Sodium Level 128 MMOL/L (136-145) L Potassium Level 4.2 MMOL/L (3.5-5.1) Chloride Level 93 MMOL/L (98-107) L Carbon Dioxide Level 26 MMOL/L (21-32) Anion Gap 9 mmol/L (5-15) Blood Urea Nitrogen 20 mg/dL (7-18) H Creatinine 1.2 MG/DL (0.55-1.30) Estimat Glomerular Filtration Rate > 60 mL/min (>60) Glucose Level 390 MG/DL (74-106) H Calcium Level 9.6 MG/DL (8.5-10.1) Phosphorus Level 3.5 MG/DL (2.5-4.9) Magnesium Level 2.1 MG/DL (1.8-2.4) Total Bilirubin 0.3 MG/DL (0.2-1.0) Aspartate Amino Transf (AST/SGOT) 20 U/L (15-37) Alanine Aminotransferase (ALT/SGPT) 52 U/L (12-78) Alkaline Phosphatase 136 U/L (46-116) H C-Reactive Protein, Quantitative 2.5 mg/dL (0.00-0.90) H Total Protein 7.7 G/DL (6.4-8.2) Albumin 3.4 G/DL (3.4-5.0) Globulin 4.3 g/dL Albumin/Globulin Ratio 0.8 (1.0-2.7) Florina Rosales MD Jan 18, 2020 17:56
[2020-01-18] MEDS ORDERED: Metoprolol Succinate XL 25mg tab ORAL SCH (19:30)
[2020-01-18 20:00] VITALS: BP 114/65
[2020-01-18] MEDS: Metoprolol Succinate XL 25mg tab ORAL SCH (21:00)
[2020-01-19] VITALS: BP 110/64
[2020-01-19 04:00] VITALS: BP 134/64
[2020-01-19] MEDS: Promethazine/Codeine 5ml UD ORAL PRN ×4 (04:15→21:32)
[2020-01-19] MEDS: NovoLOG Insulin Flexpen SUBQ SCH ×4 (06:06→21:33)
[2020-01-19 08:04] VITALS: BP 157/93
[2020-01-19] MEDS: Heparin 5000 units/ml inj SUBQ SCH ×2 (09:00→21:00)
[2020-01-19] MEDS: BuPROPion SR 150mg tab ORAL SCH ×3 (09:24→21:00)
[2020-01-19] MEDS: Doxycycline Monohydrate 100mg ORAL SCH (09:24)
[2020-01-19] MEDS: Aspirin EC 81mg tab ORAL SCH (09:24)
[2020-01-19] MEDS: Theophylline ER 100mg ORAL SCH ×2 (09:24→21:32)
[2020-01-19] MEDS: Metoprolol Succinate XL 25mg tab ORAL SCH (09:25)
[2020-01-19] MEDS ORDERED: NS 275ml ONE (09:48)
--- NOTE | 2020-01-19 11:09 | Pulmonology Progress Note ---
Assessment/Plan Assessment/Plan ASSESSMENT Acute bronchitis Viral syndrome Chronic recurrent chest pain CAD with hx of CABG DM HTN Hypothyroidism Obesity PLAN of CARE tele O2 HHN PRN empiric antibiotics BCX NGTD SCX NGT influenza swab NGT COVID 19 pending isolation : droplet and contact stool C dif NGT DVT prophylaxis serial troponin negative, EKG no acute ischemic changes, ruled out for acute CA. Echo with pEF 55 to 60% , no WMA per cardio-> no evidence of myonecrosis d/aPLT, nitrate Lasix dc monitor renal parameters BS with SSI supportive care case discussed and evaluated by supervising physician Subjective Allergies: Coded Allergies: No Known Allergies (Unverified , 12/08/19) Subjective no fevers, no leukocytosis + cough, dry pulse ox stable remains in isolation COVID 19 pending Objective Last 24 Hour Vital Signs Date Time Temp Pulse Resp B/P (MAP) Pulse Ox O2 Delivery O2 Flow Rate FiO2 01/19/20 09:25 103 157/93 01/19/20 09:24 157/93 01/19/20 08:38 Room Air 01/19/20 08:04 97.7 103 22 157/93 (114) 93 01/19/20 07:57 101 01/19/20 07:30 93 20 94 Nasal Cannula 3.0 32 01/19/20 07:30 94 Nasal Cannula 3.0 32 01/19/20 04:00 97.5 90 20 134/64 (87) 93 01/19/20 03:54 102 01/19/20 00:00 97.6 90 20 110/64 (79) 94 01/18/20 23:54 100 01/18/20 21:00 Room Air 01/18/20 20:13 94 Nasal Cannula 3.0 32 01/18/20 20:13 109 20 94 Nasal Cannula 3.0 32 01/18/20 20:00 97.4 111 18 114/65 (81) 91 01/18/20 19:50 110 01/18/20 18:00 110 114 119 01/18/20 17:23 113/65 01/18/20 16:00 98.1 111 18 113/65 (81) 92 01/18/20 16:00 110 01/18/20 12:21 139/88 01/18/20 12:00 98.1 111 20 111/71 (84) 94 01/18/20 11:43 108 Intake and Output 01/18/20 01/19/20 19:00 07:00 Intake Total 960 ml 600 ml Balance 960 ml 600 ml Intake Oral 960 ml 600 ml # Voids 5 4 # Bowel Movements 2 Objective General Appearance: other - obese male in NAD HEENT: normocephalic, atraumatic, anicteric, mucous membranes moist Respiratory/Chest: rhonchi - few scattered rhonchi Cardiovascular: regular rhythm - SR occas low tachy , tachycardia - low tachy Abdomen: normal bowel sounds, soft, non tender - obese Extremities: +1 edema BLE Skin: no rash, other Neurologic/Psychiatric: alert, oriented x 3, responsive Microbiology Date/Time Source Procedure Growth Status 01/18/20 19:33 Stool Clostridium difficile Toxin Assay - Final Complete Current Medications Medications (Trade) Dose Ordered Sig/Rodney Route PRN Reason Start Time Stop Time Status Last Admin Dose Admin Acetaminophen (Tylenol) 650 mg Q4H PRN ORAL Fever 01/13/20 21:45 02/12/20 21:44 Albuterol/ Ipratropium (Albuterol/ Ipratropium) 3 ml Q4H PRN HHN Shortness of Breath 01/18/20 10:45 01/23/20 10:44 Aspirin (Ecotrin) 81 mg DAILY ORAL 01/14/20 09:00 02/28/20 08:59 01/19/20 09:24 Bupropion HCl (Wellbutrin SR) 150 mg EVERY 12 HOURS ORAL 01/14/20 09:00 02/13/20 08:59 01/18/20 20:55 Ceftriaxone Sodium 1 gm/ Dextrose 55 ml @ 110 mls/hr Q24H IVPB 01/14/20 16:00 01/19/20 15:59 01/18/20 16:16 Clopidogrel Bisulfate (Plavix) 75 mg DAILY ORAL 01/14/20 09:00 02/13/20 08:59 01/19/20 09:24 Dextrose (Dextrose 50%) 25 ml Q30M PRN IV Hypoglycemia 01/13/20 21:45 02/12/20 21:44 Dextrose (Dextrose 50%) 50 ml Q30M PRN IV Hypoglycemia 01/13/20 21:45 02/12/20 21:44 Doxycycline Monohydrate (Doxycycline Monohydrate) 100 mg Q12HR@1000,2200 ORAL 01/14/20 16:00 01/19/20 15:59 01/19/20 09:24 Gabapentin (Neurontin) 300 mg BEDTIME ORAL 01/13/20 22:30 02/12/20 22:29 01/18/20 20:55 Heparin Sodium (Porcine) (Heparin 5000 units/ml) 5,000 units EVERY 12 HOURS SUBQ 01/14/20 09:00 02/28/20 08:59 01/18/20 20:57 Insulin Aspart (NovoLOG) BEFORE MEALS AND HS SUBQ 01/14/20 06:30 02/13/20 06:29 01/19/20 06:06 Isosorbide Dinitrate (Isordil) 20 mg TID ORAL 01/14/20 18:00 02/13/20 17:59 01/19/20 09:24 Metoprolol Succinate (Toprol XL) 25 mg Q12HR ORAL 01/18/20 21:00 04/17/20 19:29 01/19/20 09:25 Mirtazapine (Remeron) 7.5 mg BEDTIME ORAL 01/13/20 22:30 02/12/20 22:29 01/18/20 20:55 Nitroglycerin (Ntg) 0.4 mg Q5M PRN SL Prn Chest Pain 01/17/20 11:45 02/16/20 11:44 01/17/20 17:20 Ondansetron HCl (Zofran) 4 mg Q6H PRN IVP Nausea & Vomiting 01/13/20 21:45 02/12/20 21:44 01/19/20 04:15 Polyethylene Glycol (Miralax) 17 gm DAILYPRN PRN ORAL Constipation 01/13/20 21:45 02/12/20 21:44 Promethazine HCl/ Codeine (Phenergan with Codeine) 5 ml Q4H PRN ORAL For Cough 01/13/20 22:00 02/12/20 21:59 01/19/20 04:15 Temazepam (Restoril) 15 mg HSPRN PRN ORAL Insomnia 01/13/20 22:30 01/20/20 22:29 01/18/20 20:55 Theophylline (Jose-Dur) 100 mg EVERY 12 HOURS ORAL 01/14/20 09:00 02/13/20 08:59 01/19/20 09:24 Patricia Brewster NP Jan 19, 2020 11:09
[2020-01-19 11:43] VITALS: BP 116/64
[2020-01-19 14:58] LABS: BASOPHILS % (AUTO) 0.9 % (0.0-2.0); EOSINOPHILS % (AUTO) 3.5 % (0.0-3.0); HEMOGLOBIN 13.5 G/DL (14.2-18.0); LYMPHOCYTES % (AUTO) 23.3 % (20.0-45.0); MEAN CORPUSCULAR VOLUME 89 FL (80-99); MONOCYTES % (AUTO) 6.7 % (1.0-10.0); NEUTROPHILS % (AUTO) 65.6 % (45.0-75.0); PLATELET COUNT 354 K/UL (150-450); RED BLOOD COUNT 4.25 M/UL (4.70-6.10); RED CELL DISTRIBUTION WIDTH 11.5 % (11.6-14.8); WHITE BLOOD COUNT 9.7 K/UL (4.8-10.8)
[2020-01-19 15:11] LABS: ANION GAP 12 mmol/L (5-15); BLOOD UREA NITROGEN 17 mg/dL (7-18); CALCIUM 9.5 MG/DL (8.5-10.1); CARBON DIOXIDE 25 MMOL/L (21-32); CHLORIDE 98 MMOL/L (98-107); CREATININE 1.2 MG/DL (0.55-1.30); POTASSIUM 4.3 MMOL/L (3.5-5.1); SODIUM 135 MMOL/L (136-145)
[2020-01-19 16:32] VITALS: BP 126/72
--- NOTE | 2020-01-19 17:10 | Cardiology Progress Note ---
Assessment/Plan Problem List: (1) Chest pain (2) Dizziness (3) Diabetes (4) HTN (hypertension) Status: stable, progressing Status Narrative Chest pain - Known CAD w/ hx of CABG,PCI. Has ruled out for DE w/ negative troponins . will discuss further testing w/ stress nuclear study w/ Dr. Guthrie. Metoprolol started. Continue asa, plavix . ? statin Diarrhea - w/u per primary team Assessment/Plan Consider stress testing - will d/w Dr. Guthrie Check orthostatic VS to determine if ortho hypotension causing dizziness. Subjective ROS Limited/Unobtainable: No Subjective Cardiology for Dr. Guthrie Mr. Falk continues to c/o chest pain and also reports diarrhea today. Objective Last 24 Hour Vital Signs Date Time Temp Pulse Resp B/P (MAP) Pulse Ox O2 Delivery O2 Flow Rate FiO2 01/19/20 16:32 96.8 96 22 126/72 (90) 91 01/19/20 13:30 118/68 01/19/20 11:48 92 01/19/20 11:43 97.4 98 20 116/64 (81) 92 01/19/20 09:25 103 157/93 01/19/20 09:24 157/93 01/19/20 08:38 Room Air 01/19/20 08:04 97.7 103 22 157/93 (114) 93 01/19/20 07:57 101 01/19/20 07:30 93 20 94 Nasal Cannula 3.0 32 01/19/20 07:30 94 Nasal Cannula 3.0 32 01/19/20 04:00 97.5 90 20 134/64 (87) 93 01/19/20 03:54 102 01/19/20 00:00 97.6 90 20 110/64 (79) 94 01/18/20 23:54 100 01/18/20 21:00 Room Air 01/18/20 20:13 94 Nasal Cannula 3.0 32 01/18/20 20:13 109 20 94 Nasal Cannula 3.0 32 01/18/20 20:00 97.4 111 18 114/65 (81) 91 01/18/20 19:50 110 01/18/20 18:00 110 114 119 01/18/20 17:23 113/65 General Appearance: WD/WN, no apparent distress, alert EENT: PERRL/EOMI Neck: non-tender, no JVD Rhythm: NSR Cardiovascular: normal rate, regular rhythm Respiratory/Chest: other Abdomen: normal bowel sounds, non tender, soft Extremities: no swelling Intake and Output 01/18/20 01/19/20 19:00 07:00 Intake Total 960 ml 600 ml Balance 960 ml 600 ml Intake Oral 960 ml 600 ml # Voids 5 4 # Bowel Movements 2 Laboratory Tests Test 01/19/20 14:50 White Blood Count 9.7 K/UL (4.8-10.8) Red Blood Count 4.25 M/UL (4.70-6.10) L Hemoglobin 13.5 G/DL (14.2-18.0) L Hematocrit 38.0 % (42.0-52.0) L Mean Corpuscular Volume 89 FL (80-99) Mean Corpuscular Hemoglobin 31.9 PG (27.0-31.0) H Mean Corpuscular Hemoglobin Concent 35.7 G/DL (32.0-36.0) Red Cell Distribution Width 11.5 % (11.6-14.8) L Platelet Count 354 K/UL (150-450) Mean Platelet Volume 5.5 FL (6.5-10.1) L Neutrophils (%) (Auto) 65.6 % (45.0-75.0) Lymphocytes (%) (Auto) 23.3 % (20.0-45.0) Monocytes (%) (Auto) 6.7 % (1.0-10.0) Eosinophils (%) (Auto) 3.5 % (0.0-3.0) H Basophils (%) (Auto) 0.9 % (0.0-2.0) Sodium Level 135 MMOL/L (136-145) L Potassium Level 4.3 MMOL/L (3.5-5.1) Chloride Level 98 MMOL/L (98-107) Carbon Dioxide Level 25 MMOL/L (21-32) Anion Gap 12 mmol/L (5-15) Blood Urea Nitrogen 17 mg/dL (7-18) Creatinine 1.2 MG/DL (0.55-1.30) Estimat Glomerular Filtration Rate > 60 mL/min (>60) Glucose Level 351 MG/DL (74-106) H Calcium Level 9.5 MG/DL (8.5-10.1) Microbiology Date/Time Source Procedure Growth Status 01/18/20 19:33 Stool Clostridium difficile Toxin Assay - Final Complete Florina Hawkins MD Jan 19, 2020 17:10
[2020-01-19 20:00] VITALS: BP 122/71
[2020-01-20] VITALS: BP 112/69
[2020-01-20 04:00] VITALS: BP 106/62
[2020-01-20] MEDS: NovoLOG Insulin Flexpen SUBQ SCH ×4 (06:10→20:28)
[2020-01-20] MEDS: Promethazine/Codeine 5ml UD ORAL PRN ×3 (06:11→16:52)
[2020-01-20 07:41] LABS: EOSINOPHILS % (AUTO) 4.4 % (0.0-3.0); HEMATOCRIT 37.9 % (42.0-52.0); HEMOGLOBIN 13.2 G/DL (14.2-18.0); LYMPHOCYTES % (AUTO) 24.4 % (20.0-45.0); MEAN CORPUSCULAR VOLUME 90 FL (80-99); MONOCYTES % (AUTO) 7.6 % (1.0-10.0); NEUTROPHILS % (AUTO) 62.6 % (45.0-75.0); PLATELET COUNT 315 K/UL (150-450); RED BLOOD COUNT 4.19 M/UL (4.70-6.10); WHITE BLOOD COUNT 9.6 K/UL (4.8-10.8)
[2020-01-20 08:09] LABS: ANION GAP 15 mmol/L (5-15); BLOOD UREA NITROGEN 16 mg/dL (7-18); CALCIUM 9.4 MG/DL (8.5-10.1); CARBON DIOXIDE 20 MMOL/L (21-32); CHLORIDE 100 MMOL/L (98-107); CHOLESTEROL 230 MG/DL (< 200); CREATININE 0.9 MG/DL (0.55-1.30); HDL CHOLESTEROL 35 MG/DL (40-60); POTASSIUM 4.3 MMOL/L (3.5-5.1); SODIUM 134 MMOL/L (136-145); TRIGLYCERIDES 447 MG/DL (30-150)
--- NOTE | 2020-01-20 08:09 | Infectious Diseases Prog Note ---
Assessment/Plan Assessment/Plan ASSESSMENT: The patient is a 54-year-old male with: Shortness of breath Afebrile Elevated white blood cells Leukopenia Rule out probable Covid-19 History of CHF. istory of CAD History of hypothyroidism. History of hypertension. History of chronic obstructive pulmonary disease. Liver cirrhosis. History of drug abuse in the past. GERD PLAN: DC n doxycycline and Rocephin day # 5/ Monitor CBC. Monitor BMP. Monitor cultures. Monitor chest x-ray. CT of the chest P Subjective Allergies: Coded Allergies: No Known Allergies (Unverified , 12/08/19) Subjective comfortable Objective Vital Signs Last 24 Hour Vital Signs Date Time Temp Pulse Resp B/P (MAP) Pulse Ox O2 Delivery O2 Flow Rate FiO2 01/20/20 04:00 79 01/20/20 04:00 80 106/62 (77) 93 01/20/20 00:00 94 01/20/20 00:00 90 112/69 (83) 91 01/19/20 21:00 Room Air Room Air 01/19/20 20:00 99 01/19/20 20:00 97.7 91 22 122/71 (88) 97 01/19/20 19:59 97 20 93 Nasal Cannula 3.0 32 01/19/20 19:59 93 Nasal Cannula 3.0 32 01/19/20 18:30 95 96 99 01/19/20 17:45 132/78 01/19/20 16:32 96.8 96 22 126/72 (90) 91 01/19/20 16:07 99 01/19/20 13:30 118/68 01/19/20 11:48 92 01/19/20 11:43 97.4 98 20 116/64 (81) 92 01/19/20 09:25 103 157/93 01/19/20 09:24 157/93 01/19/20 08:38 Room Air Height (Feet): 5 Height (Inches): 4.00 Weight (Pounds): 249 HEENT: anicteric Respiratory/Chest: no respiratory distress Cardiovascular: regularly irregular Abdomen: no organomegaly Microbiology Date/Time Source Procedure Growth Status 01/18/20 19:33 Stool Clostridium difficile Toxin Assay - Final Complete Laboratory Tests Test 01/19/20 14:50 01/20/20 05:40 White Blood Count 9.7 K/UL (4.8-10.8) 9.6 K/UL (4.8-10.8) Red Blood Count 4.25 M/UL (4.70-6.10) L 4.19 M/UL (4.70-6.10) L Hemoglobin 13.5 G/DL (14.2-18.0) L 13.2 G/DL (14.2-18.0) L Hematocrit 38.0 % (42.0-52.0) L 37.9 % (42.0-52.0) L Mean Corpuscular Volume 89 FL (80-99) 90 FL (80-99) Mean Corpuscular Hemoglobin 31.9 PG (27.0-31.0) H 31.6 PG (27.0-31.0) H Mean Corpuscular Hemoglobin Concent 35.7 G/DL (32.0-36.0) 35.0 G/DL (32.0-36.0) Red Cell Distribution Width 11.5 % (11.6-14.8) L 12.0 % (11.6-14.8) Platelet Count 354 K/UL (150-450) 315 K/UL (150-450) Mean Platelet Volume 5.5 FL (6.5-10.1) L 5.2 FL (6.5-10.1) L Neutrophils (%) (Auto) 65.6 % (45.0-75.0) 62.6 % (45.0-75.0) Lymphocytes (%) (Auto) 23.3 % (20.0-45.0) 24.4 % (20.0-45.0) Monocytes (%) (Auto) 6.7 % (1.0-10.0) 7.6 % (1.0-10.0) Eosinophils (%) (Auto) 3.5 % (0.0-3.0) H 4.4 % (0.0-3.0) H Basophils (%) (Auto) 0.9 % (0.0-2.0) 1.0 % (0.0-2.0) Sodium Level 135 MMOL/L (136-145) L Pending Potassium Level 4.3 MMOL/L (3.5-5.1) Pending Chloride Level 98 MMOL/L (98-107) Pending Carbon Dioxide Level 25 MMOL/L (21-32) Pending Anion Gap 12 mmol/L (5-15) Blood Urea Nitrogen 17 mg/dL (7-18) Pending Creatinine 1.2 MG/DL (0.55-1.30) Pending Estimat Glomerular Filtration Rate > 60 mL/min (>60) Pending Glucose Level 351 MG/DL (74-106) H Pending Calcium Level 9.5 MG/DL (8.5-10.1) Pending Triglycerides Level Pending Cholesterol Level Pending LDL Cholesterol Pending HDL Cholesterol Pending Cholesterol/HDL Ratio Pending Current Medications Medications (Trade) Dose Ordered Sig/Rodney Route PRN Reason Start Time Stop Time Status Last Admin Dose Admin Acetaminophen (Tylenol) 650 mg Q4H PRN ORAL Fever 01/13/20 21:45 02/12/20 21:44 Albuterol/ Ipratropium (Albuterol/ Ipratropium) 3 ml Q4H PRN HHN Shortness of Breath 01/18/20 10:45 01/23/20 10:44 Aspirin (Ecotrin) 81 mg DAILY ORAL 01/14/20 09:00 02/28/20 08:59 01/19/20 09:24 Bupropion HCl (Wellbutrin SR) 150 mg EVERY 12 HOURS ORAL 01/14/20 09:00 02/13/20 08:59 01/18/20 20:55 Clopidogrel Bisulfate (Plavix) 75 mg DAILY ORAL 01/14/20 09:00 02/13/20 08:59 01/19/20 09:24 Dextrose (Dextrose 50%) 25 ml Q30M PRN IV Hypoglycemia 01/19/20 19:00 04/18/20 18:59 Dextrose (Dextrose 50%) 50 ml Q30M PRN IV Hypoglycemia 01/19/20 19:00 04/18/20 18:59 Gabapentin (Neurontin) 300 mg BEDTIME ORAL 01/13/20 22:30 02/12/20 22:29 01/19/20 21:32 Heparin Sodium (Porcine) (Heparin 5000 units/ml) 5,000 units EVERY 12 HOURS SUBQ 01/14/20 09:00 02/28/20 08:59 01/18/20 20:57 Insulin Aspart (NovoLOG) BEFORE MEALS AND HS SUBQ 01/19/20 21:00 04/18/20 20:59 01/20/20 06:10 Isosorbide Dinitrate (Isordil) 10 mg TID ORAL 01/19/20 18:00 02/13/20 17:59 01/19/20 17:45 Loperamide HCl (Imodium) 4 mg QID ORAL 01/19/20 21:00 01/22/20 23:00 01/19/20 21:32 Metoprolol Succinate (Toprol XL) 50 mg Q12HR ORAL 01/20/20 21:00 04/17/20 19:29 Mirtazapine (Remeron) 7.5 mg BEDTIME ORAL 01/13/20 22:30 02/12/20 22:29 01/18/20 20:55 Nitroglycerin (Ntg) 0.4 mg Q5M PRN SL Prn Chest Pain 01/17/20 11:45 02/16/20 11:44 01/17/20 17:20 Ondansetron HCl (Zofran) 4 mg Q6H PRN IVP Nausea & Vomiting 01/13/20 21:45 02/12/20 21:44 01/19/20 04:15 Polyethylene Glycol (Miralax) 17 gm DAILYPRN PRN ORAL Constipation 01/13/20 21:45 02/12/20 21:44 Promethazine HCl/ Codeine (Phenergan with Codeine) 5 ml Q4H PRN ORAL For Cough 01/13/20 22:00 02/12/20 21:59 01/20/20 06:11 Temazepam (Restoril) 15 mg HSPRN PRN ORAL Insomnia 01/13/20 22:30 01/20/20 22:29 01/18/20 20:55 Theophylline (Jose-Dur) 100 mg EVERY 12 HOURS ORAL 01/14/20 09:00 02/13/20 08:59 01/19/20 21:32 Berry Taylor MD Jan 20, 2020 08:09
[2020-01-20] MEDS: Heparin 5000 units/ml inj SUBQ SCH ×2 (09:00→20:28)
[2020-01-20] MEDS: BuPROPion SR 150mg tab ORAL SCH ×2 (09:34→20:29)
[2020-01-20] MEDS: Aspirin EC 81mg tab ORAL SCH (09:34)
[2020-01-20] MEDS: Theophylline ER 100mg ORAL SCH ×2 (09:34→20:23)
--- NOTE | 2020-01-20 10:15 | Consultation ---
DATE OF CONSULTATION: 01/20/2020 DATE AND TIME SEEN: 01/20/2020 at 9 a.m. CONSULTING PHYSICIAN: Fermín Griggs D.O. CHIEF COMPLAINT: CHF exacerbation, cough, shortness of breath. BRIEF HISTORY: This is a 54-year-old male of mine from the [facility] facility, presented to [facility] on 01/13/2020 for above-mentioned diagnoses. The patient was tested for COVID two to three days back and it came back negative, therefore droplet isolation will be removed. The patient was seen by Dr. Hood, Dr. Taylor, and Dr. Guthrie and treated throughout the course. Today, he is resting in bed, slight general pain. No complaint. REVIEW OF SYSTEMS: No chest pain. No shortness of breath. No nausea, vomiting, or diarrhea. PAST MEDICAL HISTORY: Includes diabetes, hypothyroid, CAD, and CHF. PAST SURGICAL HISTORY: Stent. ALLERGIES: Denies. MEDICATIONS: Include metoprolol, loperamide, insulin, isosorbide, albuterol, nitroglycerin, doxycycline, aspirin, clopidogrel, theophylline. SOCIAL HISTORY: No smoking. No alcohol. No intravenous drug abuse. FAMILY HISTORY: Noncontributory. PHYSICAL EXAMINATION: GENERAL: Slightly anxious in bed, oriented x3, in no acute distress. VITAL SIGNS: Temperature is 97 degrees, pulse 80, respirations 20, blood pressure 106/62. CARDIOVASCULAR: No murmurs. LUNGS: . ABDOMEN: Bowel sounds positive. Nontender. Nondistended. EXTREMITIES: No cyanosis, clubbing, or edema. NEUROLOGIC: The patient moves all extremities, slightly weak. LABORATORY AND DIAGNOSTIC DATA: Labs at this time show hemoglobin and hematocrit 13/37, otherwise CBC is normal. BMP shows sodium 134, CO2 20. Glucose 360. Urinalysis is negative, 1+ protein. ASSESSMENT: 1. CHF exacerbation. 2. Cough. 3. Diabetes. 4. Hypothyroid. 5. CAD. PLAN: 1. Blood pressure and blood sugar control. 2. O2 and pulmonary treatment as needed. 3. Dietary followup. 4. Resume home medications. 5. Pain control. 6. PT/OT. 7. CBC, BMP in the morning. Fermín Griggs D.O. DR: SURJIT JOB#: [id number] CC:
[2020-01-20 12:00] VITALS: BP 117/65
--- NOTE | 2020-01-20 13:36 | Diagnostic Imaging Report ---
Indication: Dyspnea Comparison: 01/17/2020 A single view chest radiograph was obtained. Findings: Heart size is normal. There are mild linear densities at the lung bases especially on the right.. Lung volumes are low bilaterally. Sternotomy noted. Bones are osteopenic. IMPRESSION: No change. Mild basal atelectasis versus scarring
[2020-01-20 16:00] VITALS: BP 123/68
[2020-01-20] MEDS: Nitroglycerin Subl 0.4mg tab SL PRN ×2 (16:39→16:57)
--- NOTE | 2020-01-20 17:28 | Pulmonology Progress Note ---
Assessment/Plan Problems: (1) Acute bronchitis (2) Viral syndrome (3) Diabetes (4) Hypothyroid (5) HTN (hypertension) Assessment/Plan sputum culture and blood cultures are negative awaiting COVID-19 virus results check bnp and cxr in am sliding scale wll reviewed dvt prophylaxis. Subjective ROS Limited/Unobtainable: No Constitutional: Reports: no symptoms HEENT: Repors: no symptoms Allergies: Coded Allergies: No Known Allergies (Unverified , 12/08/19) Objective Last 24 Hour Vital Signs Date Time Temp Pulse Resp B/P (MAP) Pulse Ox O2 Delivery O2 Flow Rate FiO2 01/20/20 16:57 116/62 01/20/20 16:39 116/62 01/20/20 12:26 116/62 01/20/20 12:00 85 01/20/20 12:00 78 20 117/65 (82) 96 01/20/20 09:34 106/62 01/20/20 09:00 Room Air Room Air 01/20/20 08:00 78 01/20/20 08:00 85 18 95 01/20/20 07:00 79 20 93 Nasal Cannula 3.0 32 01/20/20 07:00 93 Nasal Cannula 3.0 32 01/20/20 04:00 79 01/20/20 04:00 80 106/62 (77) 93 01/20/20 00:00 94 01/20/20 00:00 90 112/69 (83) 91 01/19/20 21:00 Room Air Room Air 01/19/20 20:00 99 01/19/20 20:00 97.7 91 22 122/71 (88) 97 01/19/20 19:59 97 20 93 Nasal Cannula 3.0 32 01/19/20 19:59 93 Nasal Cannula 3.0 32 01/19/20 18:30 95 96 99 01/19/20 17:45 132/78 Intake and Output 01/19/20 01/20/20 19:00 07:00 Intake Total 800 ml Balance 800 ml Intake Oral 800 ml # Voids 3 # Bowel Movements 2 Objective General Appearance: WD/WN HEENT: normocephalic, atraumatic Respiratory/Chest: chest wall non-tender, lungs clear Breasts: no masses Cardiovascular: normal peripheral pulses Abdomen: normal bowel sounds, soft, non tender Genitourinary: normal external genitalia Extremities: no cyanosis Skin: no rash 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 Microbiology Date/Time Source Procedure Growth Status 01/18/20 19:33 Stool Clostridium difficile Toxin Assay - Final Complete Laboratory Tests 01/20/20 05:40: White Blood Count 9.6, Red Blood Count 4.19L, Hemoglobin 13.2L, Hematocrit 37.9L , Mean Corpuscular Volume 90, Mean Corpuscular Hemoglobin 31.6H, Mean Corpuscular Hemoglobin Concent 35.0, Red Cell Distribution Width 12.0, Platelet Count 315, Mean Platelet Volume 5.2L, Neutrophils (%) (Auto) 62.6, Lymphocytes ( %) (Auto) 24.4, Monocytes (%) (Auto) 7.6, Eosinophils (%) (Auto) 4.4H, Basophils (%) (Auto) 1.0, Sodium Level 134L, Potassium Level 4.3, Chloride Level 100, Carbon Dioxide Level 20L, Anion Gap 15, Blood Urea Nitrogen 16, Creatinine 0.9, Estimat Glomerular Filtration Rate > 60, Glucose Level 360H, Calcium Level 9.4, Triglycerides Level 447H, Cholesterol Level 230H, LDL Cholesterol 136H, HDL Cholesterol 35L, Cholesterol/HDL Ratio 6.6H Current Medications Medications (Trade) Dose Ordered Sig/Rodney Route PRN Reason Start Time Stop Time Status Last Admin Dose Admin Acetaminophen (Tylenol) 650 mg Q4H PRN ORAL Fever 01/13/20 21:45 02/12/20 21:44 Albuterol/ Ipratropium (Albuterol/ Ipratropium) 3 ml Q4H PRN HHN Shortness of Breath 01/18/20 10:45 01/23/20 10:44 Aspirin (Ecotrin) 81 mg DAILY ORAL 01/14/20 09:00 02/28/20 08:59 01/20/20 09:34 Bupropion HCl (Wellbutrin SR) 150 mg EVERY 12 HOURS ORAL 01/14/20 09:00 02/13/20 08:59 01/20/20 09:34 Clopidogrel Bisulfate (Plavix) 75 mg DAILY ORAL 01/14/20 09:00 02/13/20 08:59 01/20/20 09:34 Dextrose (Dextrose 50%) 25 ml Q30M PRN IV Hypoglycemia 01/19/20 19:00 6/20/20 18:59 Dextrose (Dextrose 50%) 50 ml Q30M PRN IV Hypoglycemia 01/19/20 19:00 04/18/20 18:59 Gabapentin (Neurontin) 300 mg BEDTIME ORAL 01/13/20 22:30 02/12/20 22:29 01/19/20 21:32 Heparin Sodium (Porcine) (Heparin 5000 units/ml) 5,000 units EVERY 12 HOURS SUBQ 01/14/20 09:00 02/28/20 08:59 01/18/20 20:57 Insulin Aspart (NovoLOG) BEFORE MEALS AND HS SUBQ 01/19/20 21:00 04/18/20 20:59 01/20/20 16:55 Isosorbide Dinitrate (Isordil) 10 mg TID ORAL 01/19/20 18:00 02/13/20 17:59 01/20/20 12:26 Loperamide HCl (Imodium) 4 mg QID ORAL 01/19/20 21:00 01/22/20 23:00 01/20/20 12:26 Metoprolol Succinate (Toprol XL) 50 mg Q12HR ORAL 01/20/20 21:00 04/17/20 19:29 Mirtazapine (Remeron) 7.5 mg BEDTIME ORAL 01/13/20 22:30 02/12/20 22:29 01/18/20 20:55 Nitroglycerin (Ntg) 0.4 mg Q5M PRN SL Prn Chest Pain 01/17/20 11:45 02/16/20 11:44 01/20/20 16:57 Ondansetron HCl (Zofran) 4 mg Q6H PRN IVP Nausea & Vomiting 01/13/20 21:45 02/12/20 21:44 01/20/20 12:34 Polyethylene Glycol (Miralax) 17 gm DAILYPRN PRN ORAL Constipation 01/13/20 21:45 02/12/20 21:44 Promethazine HCl/ Codeine (Phenergan with Codeine) 5 ml Q4H PRN ORAL For Cough 01/13/20 22:00 02/12/20 21:59 01/20/20 16:52 Temazepam (Restoril) 15 mg HSPRN PRN ORAL Insomnia 01/13/20 22:30 01/20/20 22:29 01/18/20 20:55 Theophylline (Jose-Dur) 100 mg EVERY 12 HOURS ORAL 01/14/20 09:00 02/13/20 08:59 01/20/20 09:34 Richard Hood MD Jan 20, 2020 17:28
[2020-01-20 20:00] VITALS: BP 106/63
[2020-01-20] MEDS: Metoprolol Succinate XL 50mg tab ORAL SCH (20:24)
[2020-01-21] VITALS: BP 114/58
[2020-01-21] MEDS: Promethazine/Codeine 5ml UD ORAL PRN ×2 (01:00→16:45)
[2020-01-21 04:00] VITALS: BP 103/64
[2020-01-21] MEDS: NovoLOG Insulin Flexpen SUBQ SCH ×4 (06:00→20:45)
[2020-01-21 07:24] LABS: BASOPHILS % (AUTO) 1.1 % (0.0-2.0); EOSINOPHILS % (AUTO) 4.2 % (0.0-3.0); HEMATOCRIT 36.5 % (42.0-52.0); HEMOGLOBIN 12.9 G/DL (14.2-18.0); LYMPHOCYTES % (AUTO) 27.2 % (20.0-45.0); MEAN CORPUSCULAR VOLUME 90 FL (80-99); MONOCYTES % (AUTO) 7.7 % (1.0-10.0); NEUTROPHILS % (AUTO) 59.8 % (45.0-75.0); PLATELET COUNT 334 K/UL (150-450); RED BLOOD COUNT 4.07 M/UL (4.70-6.10); RED CELL DISTRIBUTION WIDTH 11.8 % (11.6-14.8); WHITE BLOOD COUNT 8.5 K/UL (4.8-10.8)
[2020-01-21 07:30] LABS: ANION GAP 13 mmol/L (5-15); BLOOD UREA NITROGEN 16 mg/dL (7-18); CALCIUM 9.1 MG/DL (8.5-10.1); CARBON DIOXIDE 22 MMOL/L (21-32); CHLORIDE 101 MMOL/L (98-107); CREATININE 0.9 MG/DL (0.55-1.30); POTASSIUM 4.2 MMOL/L (3.5-5.1); SODIUM 136 MMOL/L (136-145)
[2020-01-21 08:00] VITALS: BP 108/63
[2020-01-21] MEDS: Theophylline ER 100mg ORAL SCH ×2 (08:44→20:43)
[2020-01-21] MEDS: BuPROPion SR 150mg tab ORAL SCH ×2 (08:44→21:00)
[2020-01-21] MEDS: Aspirin EC 81mg tab ORAL SCH (08:44)
[2020-01-21] MEDS: Metoprolol Succinate XL 50mg tab ORAL SCH ×2 (08:45→20:57)
[2020-01-21] MEDS: Heparin 5000 units/ml inj SUBQ SCH ×2 (08:49→20:47)
--- NOTE | 2020-01-21 10:55 | General Progress Note ---
Assessment/Plan Problem List: (1) Pain ICD Codes: R52 - Pain, unspecified SNOMED: 34421671 (2) Acute exacerbation of congestive heart failure ICD Codes: I50.9 - Heart failure, unspecified SNOMED: 349086652, 79120264358662 (3) Diabetes ICD Codes: E11.9 - Type 2 diabetes mellitus without complications SNOMED: 83542247 (4) Hypothyroid ICD Codes: E03.9 - Hypothyroidism, unspecified SNOMED: 30476652 (5) Chest pain ICD Codes: R07.9 - Chest pain, unspecified SNOMED: 29048372 Status: stable, progressing Assessment/Plan: o2 pulm tx prn pain control cbc bmp am Subjective Constitutional: Reports: weakness Allergies: Coded Allergies: No Known Allergies (Unverified , 12/08/19) All Systems: reviewed and negative except above Subjective sleepy calm Objective Last 24 Hour Vital Signs Date Time Temp Pulse Resp B/P (MAP) Pulse Ox O2 Delivery O2 Flow Rate FiO2 01/21/20 09:00 Room Air Room Air 01/21/20 08:45 108/63 01/21/20 08:45 77 108/63 01/21/20 08:00 98.0 77 20 108/63 (78) 95 01/21/20 08:00 86 01/21/20 07:00 94 Nasal Cannula 3.0 32 01/21/20 06:52 88 16 97 Nasal Cannula 3.0 32 01/21/20 04:00 89 01/21/20 04:00 97.0 92 21 103/64 (77) 93 01/21/20 03:40 96 Nasal Cannula 3.0 32 01/21/20 03:40 80 16 96 Nasal Cannula 3.0 32 01/21/20 00:00 97.9 94 20 114/58 (76) 95 01/21/20 00:00 93 01/20/20 21:00 Room Air Room Air 01/20/20 20:24 93 106/63 01/20/20 20:00 98 01/20/20 20:00 97.7 93 22 106/63 (77) 93 01/20/20 18:00 116/62 01/20/20 16:57 116/62 01/20/20 16:39 116/62 01/20/20 16:00 76 01/20/20 16:00 97.7 88 18 123/68 (86) 97 01/20/20 12:26 116/62 01/20/20 12:00 85 01/20/20 12:00 78 20 117/65 (82) 96 Intake and Output 01/20/20 01/21/20 19:00 07:00 Intake Total 900 ml Output Total 300 ml Balance 900 ml -300 ml Intake Oral 900 ml Output Urine Total 300 ml # Voids 2 # Bowel Movements 2 Laboratory Tests 01/21/20 05:38: White Blood Count 8.5, Red Blood Count 4.07L, Hemoglobin 12.9L, Hematocrit 36.5L , Mean Corpuscular Volume 90, Mean Corpuscular Hemoglobin 31.8H, Mean Corpuscular Hemoglobin Concent 35.4, Red Cell Distribution Width 11.8, Platelet Count 334, Mean Platelet Volume 5.7L, Neutrophils (%) (Auto) 59.8, Lymphocytes ( %) (Auto) 27.2, Monocytes (%) (Auto) 7.7, Eosinophils (%) (Auto) 4.2H, Basophils (%) (Auto) 1.1, Sodium Level 136, Potassium Level 4.2, Chloride Level 101, Carbon Dioxide Level 22, Anion Gap 13, Blood Urea Nitrogen 16, Creatinine 0.9, Estimat Glomerular Filtration Rate > 60, Glucose Level 309H, Calcium Level 9.1 Height (Feet): 5 Height (Inches): 4.00 Weight (Pounds): 249 General Appearance: lethargic EENT: normal ENT inspection Neck: normal alignment Cardiovascular: normal peripheral pulses, normal rate, regular rhythm Respiratory/Chest: chest wall non-tender, lungs clear, normal breath sounds Abdomen: normal bowel sounds, non tender, soft Extremities: normal inspection Edema: no edema noted Arm (L), no edema noted Arm (R), no edema noted Leg (L), no edema noted Leg (R), no edema noted Pedal (L), no edema noted Pedal (R), no edema noted Generalized Neurologic: motor weakness Skin: normal pigmentation, warm/dry Fermín Griggs DO Jan 21, 2020 10:55
--- NOTE | 2020-01-21 11:00 | Cardiology Progress Note ---
Assessment/Plan Assessment/Plan 1. Chronic recurrent chest pain, no evidence of myonecrosis. 2. Coronary artery disease status post coronary artery bypass grafting and previous stenting. 3. Obesity. 4. Possible small vessel coronary disease. 5. Diabetes mellitus. 6. Hypertension. c/o dizziness on stadign will check orthostatic vitals off lasix for opal pst few dasy bnp normal tele remains sinus all trop neg bp seem fine hr is ok Subjective Cardiovascular: Reports: chest pain - but per pt is less strong , lightheadedness Respiratory: Reports: cough, shortness of breath Gastrointestinal/Abdominal: Denies: abdominal pain Genitourinary: Denies: burning Subjective covid 19 isolation removed Objective Last 24 Hour Vital Signs Date Time Temp Pulse Resp B/P (MAP) Pulse Ox O2 Delivery O2 Flow Rate FiO2 01/21/20 09:00 Room Air Room Air 01/21/20 08:45 108/63 01/21/20 08:45 77 108/63 01/21/20 08:00 98.0 77 20 108/63 (78) 95 01/21/20 08:00 86 01/21/20 07:00 94 Nasal Cannula 3.0 32 01/21/20 06:52 88 16 97 Nasal Cannula 3.0 32 01/21/20 04:00 89 01/21/20 04:00 97.0 92 21 103/64 (77) 93 01/21/20 03:40 96 Nasal Cannula 3.0 32 01/21/20 03:40 80 16 96 Nasal Cannula 3.0 32 01/21/20 00:00 97.9 94 20 114/58 (76) 95 01/21/20 00:00 93 01/20/20 21:00 Room Air Room Air 01/20/20 20:24 93 106/63 01/20/20 20:00 98 01/20/20 20:00 97.7 93 22 106/63 (77) 93 01/20/20 18:00 116/62 01/20/20 16:57 116/62 01/20/20 16:39 116/62 01/20/20 16:00 76 01/20/20 16:00 97.7 88 18 123/68 (86) 97 01/20/20 12:26 116/62 01/20/20 12:00 85 01/20/20 12:00 78 20 117/65 (82) 96 General Appearance: no apparent distress, alert Neck: supple Cardiovascular: normal rate Respiratory/Chest: lungs clear Abdomen: normal bowel sounds, non tender, soft Extremities: no swelling Intake and Output 01/20/20 01/21/20 19:00 07:00 Intake Total 900 ml Output Total 300 ml Balance 900 ml -300 ml Intake Oral 900 ml Output Urine Total 300 ml # Voids 2 # Bowel Movements 2 Laboratory Tests Test 01/21/20 05:38 White Blood Count 8.5 K/UL (4.8-10.8) Red Blood Count 4.07 M/UL (4.70-6.10) L Hemoglobin 12.9 G/DL (14.2-18.0) L Hematocrit 36.5 % (42.0-52.0) L Mean Corpuscular Volume 90 FL (80-99) Mean Corpuscular Hemoglobin 31.8 PG (27.0-31.0) H Mean Corpuscular Hemoglobin Concent 35.4 G/DL (32.0-36.0) Red Cell Distribution Width 11.8 % (11.6-14.8) Platelet Count 334 K/UL (150-450) Mean Platelet Volume 5.7 FL (6.5-10.1) L Neutrophils (%) (Auto) 59.8 % (45.0-75.0) Lymphocytes (%) (Auto) 27.2 % (20.0-45.0) Monocytes (%) (Auto) 7.7 % (1.0-10.0) Eosinophils (%) (Auto) 4.2 % (0.0-3.0) H Basophils (%) (Auto) 1.1 % (0.0-2.0) Sodium Level 136 MMOL/L (136-145) Potassium Level 4.2 MMOL/L (3.5-5.1) Chloride Level 101 MMOL/L (98-107) Carbon Dioxide Level 22 MMOL/L (21-32) Anion Gap 13 mmol/L (5-15) Blood Urea Nitrogen 16 mg/dL (7-18) Creatinine 0.9 MG/DL (0.55-1.30) Estimat Glomerular Filtration Rate > 60 mL/min (>60) Glucose Level 309 MG/DL (74-106) H Calcium Level 9.1 MG/DL (8.5-10.1) Microbiology Date/Time Source Procedure Growth Status 01/18/20 19:33 Stool Clostridium difficile Toxin Assay - Final Complete Sarkis Guthrie MD Jan 21, 2020 11:00
--- NOTE | 2020-01-21 11:31 | Infectious Diseases Prog Note ---
Assessment/Plan Assessment/Plan ASSESSMENT: The patient is a 54-year-old male with: Shortness of breath Afebrile Elevated white blood cells Leukopenia Rule out probable Covid-19 History of CHF. istory of CAD History of hypothyroidism. History of hypertension. History of chronic obstructive pulmonary disease. Liver cirrhosis. History of drug abuse in the past. GERD PLAN: monitor pt offof AB R x 02/19 Sp doxycycline and Rocephin day # / Monitor CBC. Monitor BMP. Monitor cultures. Monitor chest x-ray. CT of the chest P Subjective Allergies: Coded Allergies: No Known Allergies (Unverified , 12/08/19) Subjective afebrile no acute event Objective Vital Signs Last 24 Hour Vital Signs Date Time Temp Pulse Resp B/P (MAP) Pulse Ox O2 Delivery O2 Flow Rate FiO2 01/21/20 09:00 Room Air Room Air 01/21/20 08:45 108/63 01/21/20 08:45 77 108/63 01/21/20 08:00 98.0 77 20 108/63 (78) 95 01/21/20 08:00 86 01/21/20 07:00 94 Nasal Cannula 3.0 32 01/21/20 06:52 88 16 97 Nasal Cannula 3.0 32 01/21/20 04:00 89 01/21/20 04:00 97.0 92 21 103/64 (77) 93 01/21/20 03:40 96 Nasal Cannula 3.0 32 01/21/20 03:40 80 16 96 Nasal Cannula 3.0 32 01/21/20 00:00 97.9 94 20 114/58 (76) 95 01/21/20 00:00 93 01/20/20 21:00 Room Air Room Air 01/20/20 20:24 93 106/63 01/20/20 20:00 98 01/20/20 20:00 97.7 93 22 106/63 (77) 93 01/20/20 18:00 116/62 01/20/20 16:57 116/62 01/20/20 16:39 116/62 01/20/20 16:00 76 01/20/20 16:00 97.7 88 18 123/68 (86) 97 01/20/20 12:26 116/62 01/20/20 12:00 85 01/20/20 12:00 78 20 117/65 (82) 96 Height (Feet): 5 Height (Inches): 4.00 Weight (Pounds): 249 HEENT: anicteric Respiratory/Chest: normal breath sounds Cardiovascular: regular rhythm Abdomen: soft, non tender Microbiology Date/Time Source Procedure Growth Status 01/18/20 19:33 Stool Clostridium difficile Toxin Assay - Final Complete Laboratory Tests Test 01/21/20 05:38 White Blood Count 8.5 K/UL (4.8-10.8) Red Blood Count 4.07 M/UL (4.70-6.10) L Hemoglobin 12.9 G/DL (14.2-18.0) L Hematocrit 36.5 % (42.0-52.0) L Mean Corpuscular Volume 90 FL (80-99) Mean Corpuscular Hemoglobin 31.8 PG (27.0-31.0) H Mean Corpuscular Hemoglobin Concent 35.4 G/DL (32.0-36.0) Red Cell Distribution Width 11.8 % (11.6-14.8) Platelet Count 334 K/UL (150-450) Mean Platelet Volume 5.7 FL (6.5-10.1) L Neutrophils (%) (Auto) 59.8 % (45.0-75.0) Lymphocytes (%) (Auto) 27.2 % (20.0-45.0) Monocytes (%) (Auto) 7.7 % (1.0-10.0) Eosinophils (%) (Auto) 4.2 % (0.0-3.0) H Basophils (%) (Auto) 1.1 % (0.0-2.0) Sodium Level 136 MMOL/L (136-145) Potassium Level 4.2 MMOL/L (3.5-5.1) Chloride Level 101 MMOL/L (98-107) Carbon Dioxide Level 22 MMOL/L (21-32) Anion Gap 13 mmol/L (5-15) Blood Urea Nitrogen 16 mg/dL (7-18) Creatinine 0.9 MG/DL (0.55-1.30) Estimat Glomerular Filtration Rate > 60 mL/min (>60) Glucose Level 309 MG/DL (74-106) H Calcium Level 9.1 MG/DL (8.5-10.1) Current Medications Medications (Trade) Dose Ordered Sig/Rodney Route PRN Reason Start Time Stop Time Status Last Admin Dose Admin Acetaminophen (Tylenol) 650 mg Q4H PRN ORAL Fever 01/13/20 21:45 02/12/20 21:44 Albuterol/ Ipratropium (Albuterol/ Ipratropium) 3 ml Q4H PRN HHN Shortness of Breath 01/18/20 10:45 01/23/20 10:44 Aspirin (Ecotrin) 81 mg DAILY ORAL 01/14/20 09:00 02/28/20 08:59 01/21/20 08:44 Bupropion HCl (Wellbutrin SR) 150 mg EVERY 12 HOURS ORAL 01/14/20 09:00 02/13/20 08:59 01/21/20 08:44 Clopidogrel Bisulfate (Plavix) 75 mg DAILY ORAL 01/14/20 09:00 02/13/20 08:59 01/21/20 08:44 Dextrose (Dextrose 50%) 25 ml Q30M PRN IV Hypoglycemia 01/19/20 19:00 04/18/20 18:59 Dextrose (Dextrose 50%) 50 ml Q30M PRN IV Hypoglycemia 01/19/20 19:00 04/18/20 18:59 Gabapentin (Neurontin) 300 mg BEDTIME ORAL 01/13/20 22:30 02/12/20 22:29 01/20/20 20:23 Heparin Sodium (Porcine) (Heparin 5000 units/ml) 5,000 units EVERY 12 HOURS SUBQ 01/14/20 09:00 02/28/20 08:59 01/21/20 08:49 Insulin Aspart (NovoLOG) BEFORE MEALS AND HS SUBQ 01/19/20 21:00 04/18/20 20:59 01/21/20 06:00 Isosorbide Dinitrate (Isordil) 10 mg TID ORAL 01/19/20 18:00 02/13/20 17:59 01/21/20 08:45 Loperamide HCl (Imodium) 4 mg QID ORAL 01/19/20 21:00 01/22/20 23:00 01/21/20 08:44 Metoprolol Succinate (Toprol XL) 50 mg Q12HR ORAL 01/20/20 21:00 04/17/20 19:29 01/21/20 08:45 Mirtazapine (Remeron) 7.5 mg BEDTIME ORAL 01/13/20 22:30 02/12/20 22:29 01/18/20 20:55 Nitroglycerin (Ntg) 0.4 mg Q5M PRN SL Prn Chest Pain 01/17/20 11:45 02/16/20 11:44 01/20/20 16:57 Ondansetron HCl (Zofran) 4 mg Q6H PRN IVP Nausea & Vomiting 01/13/20 21:45 02/12/20 21:44 01/20/20 12:34 Polyethylene Glycol (Miralax) 17 gm DAILYPRN PRN ORAL Constipation 01/13/20 21:45 02/12/20 21:44 Promethazine HCl/ Codeine (Phenergan with Codeine) 5 ml Q4H PRN ORAL For Cough 01/13/20 22:00 02/12/20 21:59 01/21/20 01:00 Theophylline (Jose-Dur) 100 mg EVERY 12 HOURS ORAL 01/14/20 09:00 02/13/20 08:59 01/21/20 08:44 Berry Taylor MD Jan 21, 2020 11:31
--- NOTE | 2020-01-21 12:45 | Pulmonology Progress Note ---
Assessment/Plan Problems: (1) Acute bronchitis (2) Viral syndrome (3) Diabetes (4) Hypothyroid (5) HTN (hypertension) Assessment/Plan sputum culture and blood cultures are negative COVID-19 virus negative check bnp and cxr in am sliding scale, BS still high BNP was low, off lasix wll reviewed dvt prophylaxis. Subjective Interval Events: doing better Allergies: Coded Allergies: No Known Allergies (Unverified , 12/08/19) Objective Last 24 Hour Vital Signs Date Time Temp Pulse Resp B/P (MAP) Pulse Ox O2 Delivery O2 Flow Rate FiO2 01/21/20 09:00 Room Air Room Air 01/21/20 08:45 108/63 01/21/20 08:45 77 108/63 01/21/20 08:00 98.0 77 20 108/63 (78) 95 01/21/20 08:00 86 01/21/20 07:00 94 Nasal Cannula 3.0 32 01/21/20 06:52 88 16 97 Nasal Cannula 3.0 32 01/21/20 04:00 89 01/21/20 04:00 97.0 92 21 103/64 (77) 93 01/21/20 03:40 96 Nasal Cannula 3.0 32 01/21/20 03:40 80 16 96 Nasal Cannula 3.0 32 01/21/20 00:00 97.9 94 20 114/58 (76) 95 01/21/20 00:00 93 01/20/20 21:00 Room Air Room Air 01/20/20 20:24 93 106/63 01/20/20 20:00 98 01/20/20 20:00 97.7 93 22 106/63 (77) 93 01/20/20 18:00 116/62 01/20/20 16:57 116/62 01/20/20 16:39 116/62 01/20/20 16:00 76 01/20/20 16:00 97.7 88 18 123/68 (86) 97 Intake and Output 01/20/20 01/21/20 19:00 07:00 Intake Total 900 ml Output Total 300 ml Balance 900 ml -300 ml Intake Oral 900 ml Output Urine Total 300 ml # Voids 2 # Bowel Movements 2 Objective General Appearance: WD/WN HEENT: normocephalic, atraumatic Respiratory/Chest: chest wall non-tender, lungs clear Breasts: no masses Cardiovascular: normal peripheral pulses Abdomen: normal bowel sounds, soft, non tender Genitourinary: normal external genitalia Extremities: no cyanosis Skin: no rash 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 Microbiology Date/Time Source Procedure Growth Status 01/18/20 19:33 Stool Clostridium difficile Toxin Assay - Final Complete Laboratory Tests 01/21/20 05:38: White Blood Count 8.5, Red Blood Count 4.07L, Hemoglobin 12.9L, Hematocrit 36.5L , Mean Corpuscular Volume 90, Mean Corpuscular Hemoglobin 31.8H, Mean Corpuscular Hemoglobin Concent 35.4, Red Cell Distribution Width 11.8, Platelet Count 334, Mean Platelet Volume 5.7L, Neutrophils (%) (Auto) 59.8, Lymphocytes ( %) (Auto) 27.2, Monocytes (%) (Auto) 7.7, Eosinophils (%) (Auto) 4.2H, Basophils (%) (Auto) 1.1, Sodium Level 136, Potassium Level 4.2, Chloride Level 101, Carbon Dioxide Level 22, Anion Gap 13, Blood Urea Nitrogen 16, Creatinine 0.9, Estimat Glomerular Filtration Rate > 60, Glucose Level 309H, Calcium Level 9.1 Current Medications Medications (Trade) Dose Ordered Sig/Rodney Route PRN Reason Start Time Stop Time Status Last Admin Dose Admin Acetaminophen (Tylenol) 650 mg Q4H PRN ORAL Fever 01/13/20 21:45 02/12/20 21:44 Albuterol/ Ipratropium (Albuterol/ Ipratropium) 3 ml Q4H PRN HHN Shortness of Breath 01/18/20 10:45 01/23/20 10:44 Aspirin (Ecotrin) 81 mg DAILY ORAL 01/14/20 09:00 02/28/20 08:59 01/21/20 08:44 Bupropion HCl (Wellbutrin SR) 150 mg EVERY 12 HOURS ORAL 01/14/20 09:00 02/13/20 08:59 01/21/20 08:44 Clopidogrel Bisulfate (Plavix) 75 mg DAILY ORAL 01/14/20 09:00 02/13/20 08:59 01/21/20 08:44 Dextrose (Dextrose 50%) 25 ml Q30M PRN IV Hypoglycemia 01/19/20 19:00 04/18/20 18:59 Dextrose (Dextrose 50%) 50 ml Q30M PRN IV Hypoglycemia 01/19/20 19:00 04/18/20 18:59 Gabapentin (Neurontin) 300 mg BEDTIME ORAL 01/13/20 22:30 02/12/20 22:29 01/20/20 20:23 Heparin Sodium (Porcine) (Heparin 5000 units/ml) 5,000 units EVERY 12 HOURS SUBQ 01/14/20 09:00 02/28/20 08:59 01/21/20 08:49 Insulin Aspart (NovoLOG) BEFORE MEALS AND HS SUBQ 01/19/20 21:00 04/18/20 20:59 01/21/20 11:45 Isosorbide Dinitrate (Isordil) 10 mg TID ORAL 01/19/20 18:00 02/13/20 17:59 01/21/20 08:45 Loperamide HCl (Imodium) 4 mg QID ORAL 01/19/20 21:00 01/22/20 23:00 01/21/20 08:44 Metoprolol Succinate (Toprol XL) 50 mg Q12HR ORAL 01/20/20 21:00 04/17/20 19:29 01/21/20 08:45 Mirtazapine (Remeron) 7.5 mg BEDTIME ORAL 01/13/20 22:30 02/12/20 22:29 01/18/20 20:55 Nitroglycerin (Ntg) 0.4 mg Q5M PRN SL Prn Chest Pain 01/17/20 11:45 02/16/20 11:44 01/20/20 16:57 Ondansetron HCl (Zofran) 4 mg Q6H PRN IVP Nausea & Vomiting 01/13/20 21:45 02/12/20 21:44 01/20/20 12:34 Polyethylene Glycol (Miralax) 17 gm DAILYPRN PRN ORAL Constipation 01/13/20 21:45 02/12/20 21:44 Promethazine HCl/ Codeine (Phenergan with Codeine) 5 ml Q4H PRN ORAL For Cough 01/13/20 22:00 02/12/20 21:59 01/21/20 01:00 Theophylline (Jose-Dur) 100 mg EVERY 12 HOURS ORAL 01/14/20 09:00 02/13/20 08:59 01/21/20 08:44 Richard Hood MD Jan 21, 2020 12:45
[2020-01-21 12:48] VITALS: BP 108/68
[2020-01-21 16:00] VITALS: BP 110/50
--- NOTE | 2020-01-21 18:53 | CDS Physician Query ---
Clarification is required for compliance, coding accuracy, and to reflect severity of illness for this patient Dear Dr. Plata Date: __01/21/20 CDS Name: __Garry Santoro "Heart Failure / CHF" documented in P.N 01/20:"Acute exacerbation of congestive heart failure" P.N 01/20"BNP was low, off lasix" P.N 01/18:"Echo with pEF 55 to 60% " Rx Lasix IV 40mg Labs: Pro BNP 30 CXR:(01/12)Impression: Mild interstitial congestion (01/13)Impression: Diffuse interstitial congestion, over one day Please Clarify: Acuity [] Acute [] Chronic [] Acute on Chronic Type [] Systolic [] Diastolic [] Systolic & Diastolic (Combined) [] Other: Present on Admission: [] Yes [] No [] Clinically Undetermined Physician signature Date Please also document in your Progress Notes and/or Discharge Summary and indicate if the condition was present on admission. MTDD
[2020-01-21 20:00] VITALS: BP 131/75
[2020-01-22] VITALS: BP 107/59
[2020-01-22 04:00] VITALS: BP 126/62
[2020-01-22] MEDS: NovoLOG Insulin Flexpen SUBQ SCH ×3 (05:58→21:02)
[2020-01-22] MEDS: Promethazine/Codeine 5ml UD ORAL PRN ×2 (06:05→21:04)
[2020-01-22 07:12] LABS: EOSINOPHILS % (AUTO) 4.4 % (0.0-3.0); HEMATOCRIT 37.3 % (42.0-52.0); HEMOGLOBIN 13.3 G/DL (14.2-18.0); MEAN CORPUSCULAR VOLUME 90 FL (80-99); MONOCYTES % (AUTO) 7.4 % (1.0-10.0); NEUTROPHILS % (AUTO) 60.3 % (45.0-75.0); PLATELET COUNT 322 K/UL (150-450); RED BLOOD COUNT 4.15 M/UL (4.70-6.10); RED CELL DISTRIBUTION WIDTH 11.8 % (11.6-14.8); WHITE BLOOD COUNT 8.8 K/UL (4.8-10.8)
[2020-01-22 07:16] LABS: ANION GAP 10 mmol/L (5-15); BLOOD UREA NITROGEN 17 mg/dL (7-18); CALCIUM 8.9 MG/DL (8.5-10.1); CARBON DIOXIDE 23 MMOL/L (21-32); CHLORIDE 102 MMOL/L (98-107); POTASSIUM 4.3 MMOL/L (3.5-5.1); SODIUM 135 MMOL/L (136-145)
[2020-01-22 08:00] VITALS: BP 112/70
[2020-01-22] MEDS: BuPROPion SR 150mg tab ORAL SCH ×2 (08:57→21:00)
[2020-01-22] MEDS: Metoprolol Succinate XL 50mg tab ORAL SCH ×2 (08:58→21:00)
[2020-01-22] MEDS: Theophylline ER 100mg ORAL SCH ×2 (08:58→21:00)
[2020-01-22] MEDS: Aspirin EC 81mg tab ORAL SCH (08:58)
[2020-01-22] MEDS: Heparin 5000 units/ml inj SUBQ SCH ×2 (09:00→21:03)
--- NOTE | 2020-01-22 09:25 | General Progress Note ---
Assessment/Plan Problem List: (1) Pain ICD Codes: R52 - Pain, unspecified SNOMED: 47682074 (2) Acute exacerbation of congestive heart failure ICD Codes: I50.9 - Heart failure, unspecified SNOMED: 264998196, [id number] (3) Diabetes ICD Codes: E11.9 - Type 2 diabetes mellitus without complications SNOMED: 12521540 (4) Hypothyroid ICD Codes: E03.9 - Hypothyroidism, unspecified SNOMED: 51580321 (5) Chest pain ICD Codes: R07.9 - Chest pain, unspecified SNOMED: 01794717 Status: stable, progressing Assessment/Plan: o2 pulm tx prn pain control cbc bmp am Subjective Constitutional: Reports: weakness Allergies: Coded Allergies: No Known Allergies (Unverified , 12/08/19) All Systems: reviewed and negative except above Subjective sleepy calm Objective Last 24 Hour Vital Signs Date Time Temp Pulse Resp B/P (MAP) Pulse Ox O2 Delivery O2 Flow Rate FiO2 01/22/20 09:00 Room Air Room Air 01/22/20 08:58 112/70 01/22/20 08:58 65 112/70 01/22/20 08:00 97.6 65 19 112/70 (84) 98 01/22/20 04:00 66 01/22/20 04:00 Room Air Room Air 01/22/20 04:00 97.6 74 20 126/62 (83) 96 01/22/20 00:00 73 01/22/20 00:00 97.8 72 20 107/59 (75) 94 01/22/20 00:00 Room Air Room Air 01/21/20 22:00 75 79 80 01/21/20 21:00 Room Air Room Air 01/21/20 20:57 75 131/75 01/21/20 20:00 97.7 75 18 131/75 (93) 95 01/21/20 20:00 79 01/21/20 19:58 81 18 97 Nasal Cannula 3.0 32 01/21/20 19:58 97 Nasal Cannula 3.0 32 01/21/20 17:32 110/50 01/21/20 16:00 97.8 71 20 110/50 (70) 98 01/21/20 16:00 69 01/21/20 13:18 108/68 01/21/20 12:48 97.6 78 20 108/68 (81) 100 01/21/20 12:00 78 01/21/20 12:00 78 77 79 Intake and Output 01/21/20 01/22/20 19:00 07:00 Intake Total 1600 ml Output Total 1200 ml Balance 400 ml Intake Oral 1600 ml Output Urine Total 1200 ml # Voids 8 2 Laboratory Tests 01/22/20 05:43: White Blood Count 8.8, Red Blood Count 4.15L, Hemoglobin 13.3L, Hematocrit 37.3L , Mean Corpuscular Volume 90, Mean Corpuscular Hemoglobin 32.1H, Mean Corpuscular Hemoglobin Concent 35.7, Red Cell Distribution Width 11.8, Platelet Count 322, Mean Platelet Volume 5.5L, Neutrophils (%) (Auto) 60.3, Lymphocytes ( %) (Auto) 27.0, Monocytes (%) (Auto) 7.4, Eosinophils (%) (Auto) 4.4H, Basophils (%) (Auto) 1.0, Sodium Level 135L, Potassium Level 4.3, Chloride Level 102, Carbon Dioxide Level 23, Anion Gap 10, Blood Urea Nitrogen 17, Creatinine 1.0, Estimat Glomerular Filtration Rate > 60, Glucose Level 283H, Calcium Level 8.9 Height (Feet): 5 Height (Inches): 4.00 Weight (Pounds): 247 General Appearance: lethargic EENT: normal ENT inspection Neck: normal alignment Cardiovascular: normal peripheral pulses, normal rate, regular rhythm Respiratory/Chest: chest wall non-tender, lungs clear, normal breath sounds Abdomen: normal bowel sounds, non tender, soft Extremities: normal inspection Edema: no edema noted Arm (L), no edema noted Arm (R), no edema noted Leg (L), no edema noted Leg (R), no edema noted Pedal (L), no edema noted Pedal (R), no edema noted Generalized Neurologic: responsive, motor weakness Skin: normal pigmentation, warm/dry Objective sl chest pain Fermín Griggs DO Jan 22, 2020 09:25
[2020-01-22 11:56] VITALS: BP 121/68
--- NOTE | 2020-01-22 12:09 | Pulmonology Progress Note ---
Assessment/Plan Problems: (1) Dizziness (2) Acute bronchitis (3) Viral syndrome (4) Mild diastolic dysfunction (5) Cardiac left ventricular ejection fraction greater than 40 percent (6) HTN (hypertension) (7) Hypothyroid (8) Diabetes Assessment/Plan pt is still dizzy sputum culture and blood cultures are negative COVID-19 virus negative adjust cardiac meds, sliding scale, BS still high BNP was low, off lasix wll reviewed dvt prophylaxis. Subjective ROS Limited/Unobtainable: No Constitutional: Reports: no symptoms HEENT: Repors: no symptoms Respiratory: Reports: no symptoms Allergies: Coded Allergies: No Known Allergies (Unverified , 12/08/19) Objective Last 24 Hour Vital Signs Date Time Temp Pulse Resp B/P (MAP) Pulse Ox O2 Delivery O2 Flow Rate FiO2 01/22/20 11:56 97.7 77 19 121/68 (85) 98 01/22/20 09:00 Room Air Room Air 01/22/20 08:58 112/70 01/22/20 08:58 65 112/70 01/22/20 08:00 64 01/22/20 08:00 97.6 65 19 112/70 (84) 98 01/22/20 04:00 66 01/22/20 04:00 Room Air Room Air 01/22/20 04:00 97.6 74 20 126/62 (83) 96 01/22/20 00:00 73 01/22/20 00:00 97.8 72 20 107/59 (75) 94 01/22/20 00:00 Room Air Room Air 01/21/20 22:00 75 79 80 01/21/20 21:00 Room Air Room Air 01/21/20 20:57 75 131/75 01/21/20 20:00 97.7 75 18 131/75 (93) 95 01/21/20 20:00 79 01/21/20 19:58 81 18 97 Nasal Cannula 3.0 32 01/21/20 19:58 97 Nasal Cannula 3.0 32 01/21/20 17:32 110/50 01/21/20 16:00 97.8 71 20 110/50 (70) 98 01/21/20 16:00 69 01/21/20 13:18 108/68 01/21/20 12:48 97.6 78 20 108/68 (81) 100 Intake and Output 01/21/20 01/22/20 19:00 07:00 Intake Total 1600 ml Output Total 1200 ml Balance 400 ml Intake Oral 1600 ml Output Urine Total 1200 ml # Voids 8 2 Objective General Appearance: WD/WN HEENT: normocephalic, atraumatic Respiratory/Chest: chest wall non-tender, lungs clear Breasts: no masses Cardiovascular: normal peripheral pulses Abdomen: normal bowel sounds, soft, non tender Genitourinary: normal external genitalia Extremities: no cyanosis Skin: no rash 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 Laboratory Tests 01/22/20 05:43: White Blood Count 8.8, Red Blood Count 4.15L, Hemoglobin 13.3L, Hematocrit 37.3L , Mean Corpuscular Volume 90, Mean Corpuscular Hemoglobin 32.1H, Mean Corpuscular Hemoglobin Concent 35.7, Red Cell Distribution Width 11.8, Platelet Count 322, Mean Platelet Volume 5.5L, Neutrophils (%) (Auto) 60.3, Lymphocytes ( %) (Auto) 27.0, Monocytes (%) (Auto) 7.4, Eosinophils (%) (Auto) 4.4H, Basophils (%) (Auto) 1.0, Sodium Level 135L, Potassium Level 4.3, Chloride Level 102, Carbon Dioxide Level 23, Anion Gap 10, Blood Urea Nitrogen 17, Creatinine 1.0, Estimat Glomerular Filtration Rate > 60, Glucose Level 283H, Calcium Level 8.9 Current Medications Medications (Trade) Dose Ordered Sig/Rodney Route PRN Reason Start Time Stop Time Status Last Admin Dose Admin Acetaminophen (Tylenol) 650 mg Q4H PRN ORAL Fever 01/13/20 21:45 02/12/20 21:44 Albuterol/ Ipratropium (Albuterol/ Ipratropium) 3 ml Q4H PRN HHN Shortness of Breath 01/18/20 10:45 01/23/20 10:44 Aspirin (Ecotrin) 81 mg DAILY ORAL 01/14/20 09:00 02/28/20 08:59 01/22/20 08:58 Bupropion HCl (Wellbutrin SR) 150 mg EVERY 12 HOURS ORAL 01/14/20 09:00 02/13/20 08:59 01/22/20 08:57 Clopidogrel Bisulfate (Plavix) 75 mg DAILY ORAL 01/14/20 09:00 02/13/20 08:59 01/22/20 08:58 Dextrose (Dextrose 50%) 25 ml Q30M PRN IV Hypoglycemia 01/19/20 19:00 04/18/20 18:59 Dextrose (Dextrose 50%) 50 ml Q30M PRN IV Hypoglycemia 01/19/20 19:00 04/18/20 18:59 Gabapentin (Neurontin) 300 mg BEDTIME ORAL 01/13/20 22:30 02/12/20 22:29 01/21/20 20:43 Heparin Sodium (Porcine) (Heparin 5000 units/ml) 5,000 units EVERY 12 HOURS SUBQ 01/14/20 09:00 02/28/20 08:59 01/22/20 09:00 Insulin Aspart (NovoLOG) BEFORE MEALS AND HS SUBQ 01/19/20 21:00 04/18/20 20:59 01/22/20 11:23 Isosorbide Dinitrate (Isordil) 10 mg TID ORAL 01/19/20 18:00 02/13/20 17:59 01/22/20 08:58 Loperamide HCl (Imodium) 4 mg QID ORAL 01/19/20 21:00 01/22/20 23:00 01/22/20 08:59 Metoprolol Succinate (Toprol XL) 50 mg Q12HR ORAL 01/20/20 21:00 04/17/20 19:29 01/22/20 08:58 Mirtazapine (Remeron) 7.5 mg BEDTIME ORAL 01/13/20 22:30 02/12/20 22:29 01/18/20 20:55 Nitroglycerin (Ntg) 0.4 mg Q5M PRN SL Prn Chest Pain 01/17/20 11:45 02/16/20 11:44 01/20/20 16:57 Ondansetron HCl (Zofran) 4 mg Q6H PRN IVP Nausea & Vomiting 01/13/20 21:45 02/12/20 21:44 01/21/20 17:42 Polyethylene Glycol (Miralax) 17 gm DAILYPRN PRN ORAL Constipation 01/13/20 21:45 02/12/20 21:44 Promethazine HCl/ Codeine (Phenergan with Codeine) 5 ml Q4H PRN ORAL For Cough 01/13/20 22:00 02/12/20 21:59 01/22/20 06:05 Theophylline (Jose-Dur) 100 mg EVERY 12 HOURS ORAL 01/14/20 09:00 02/13/20 08:59 01/22/20 08:58 Richard Hood MD Jan 22, 2020 12:09
[2020-01-22] MEDS: Nitroglycerin Subl 0.4mg tab SL PRN ×2 (12:48→23:15)
[2020-01-22] MEDS ORDERED: Nitroglycerin Subl 0.4mg tab SL PRN (15:30)
[2020-01-22] MEDS ORDERED: Albuterol/Ipratropium 3ml neb HHN PRN ×2 (15:45→19:45)
[2020-01-22] MEDS ORDERED: Promethazine/Codeine 5ml UD ORAL PRN (15:45)
[2020-01-22] MEDS ORDERED: Miralax 17gm pkt ORAL PRN (15:45)
[2020-01-22] MEDS ORDERED: NovoLOG Insulin Flexpen SUBQ SCH ×2 (16:30→18:00)
[2020-01-22 16:37] VITALS: BP 122/74
--- NOTE | 2020-01-22 17:54 | CDS Physician Query ---
Clarification is required for compliance, coding accuracy, and to reflect severity of illness for this patient Dear _Boni Date ___01/21/20 CDS __Chacho Santoro Presentation:54 year old male with a history of Diabetes, Hypothyroid, coronary artery disease and bypass surgery and stents on several occasions. Presented to ER with CC of chest pain, Sore throat and cough. He has shortness of breath on exertion. He has dizziness on standing. He has occasional palpitations(h/p) Clinical Indicators: O2 supplement: 3LPM/NC RR:(01/12) 24 Spo2: (01/12) 90% ED: Sp02 EP Interpretation: reviewed, abnormal & The patient has swelling in his bilateral lower extremities and interstitial edema on his chest x-ray. Please clarify if the patient had any of the following conditions based on the above clinical findings: [] Acute Respiratory Failure [] Chronic Respiratory Failure [] Acute on Chronic Respiratory Failure [] Acute Respiratory Distress [] Other: [] Unable to Determined Present on Admission: [] Yes [] No [] Clinically Undetermined Physician signature Date Please also document in your Progress Notes and/or Discharge Summary and indicate if the condition was present on admission. KOLBY
[2020-01-22 20:00] VITALS: BP 106/56
[2020-01-22] MEDS ORDERED: Heparin 5000 units/ml inj SUBQ SCH (21:00)
[2020-01-22] MEDS ORDERED: Theophylline ER 100mg ORAL SCH (21:00)
[2020-01-22] MEDS ORDERED: BuPROPion SR 150mg tab ORAL SCH (21:00)
[2020-01-22] MEDS ORDERED: Metoprolol Succinate XL 50mg tab ORAL SCH (21:00)
[2020-01-23] VITALS: BP 140/87
[2020-01-23 04:00] VITALS: BP 108/57
[2020-01-23 06:16] LABS: BASOPHILS % (AUTO) 1.4 % (0.0-2.0); EOSINOPHILS % (AUTO) 3.9 % (0.0-3.0); HEMATOCRIT 35.4 % (42.0-52.0); HEMOGLOBIN 12.7 G/DL (14.2-18.0); MEAN CORPUSCULAR VOLUME 90 FL (80-99); MONOCYTES % (AUTO) 9.2 % (1.0-10.0); NEUTROPHILS % (AUTO) 58.5 % (45.0-75.0); PLATELET COUNT 296 K/UL (150-450); RED BLOOD COUNT 3.95 M/UL (4.70-6.10); RED CELL DISTRIBUTION WIDTH 11.8 % (11.6-14.8); WHITE BLOOD COUNT 8.5 K/UL (4.8-10.8)
[2020-01-23 06:35] LABS: ANION GAP 10 mmol/L (5-15); BLOOD UREA NITROGEN 18 mg/dL (7-18); CALCIUM 8.7 MG/DL (8.5-10.1); CARBON DIOXIDE 26 MMOL/L (21-32); CHLORIDE 100 MMOL/L (98-107); POTASSIUM 4.7 MMOL/L (3.5-5.1); SODIUM 136 MMOL/L (136-145)
[2020-01-23] MEDS: NovoLOG Insulin Flexpen SUBQ SCH ×4 (06:58→20:34)
[2020-01-23 08:00] VITALS: BP 133/67
[2020-01-23] MEDS ORDERED: Aspirin EC 81mg tab ORAL SCH (09:00)
[2020-01-23] MEDS: BuPROPion SR 150mg tab ORAL SCH ×2 (09:00→20:35)
[2020-01-23] MEDS: Promethazine/Codeine 5ml UD ORAL PRN ×2 (09:07→15:59)
[2020-01-23] MEDS: Heparin 5000 units/ml inj SUBQ SCH ×2 (09:07→20:34)
[2020-01-23] MEDS: Theophylline ER 100mg ORAL SCH ×2 (09:08→20:33)
[2020-01-23] MEDS: Aspirin EC 81mg tab ORAL SCH (09:08)
[2020-01-23] MEDS: Metoprolol Succinate XL 50mg tab ORAL SCH ×2 (09:08→20:34)
[2020-01-23] MEDS: Nitroglycerin Subl 0.4mg tab SL PRN (09:16)
--- NOTE | 2020-01-23 10:58 | General Progress Note ---
Assessment/Plan Problem List: (1) Diabetes ICD Codes: E11.9 - Type 2 diabetes mellitus without complications SNOMED: 37051738 (2) Hypothyroid ICD Codes: E03.9 - Hypothyroidism, unspecified SNOMED: 36947667 (3) Chest pain ICD Codes: R07.9 - Chest pain, unspecified SNOMED: 65005783 Status: stable, progressing Assessment/Plan: o2 pulm tx prn pain control cbc bmp am Subjective Constitutional: Reports: weakness Allergies: Coded Allergies: No Known Allergies (Unverified , 12/08/19) All Systems: reviewed and negative except above Subjective sleepy calm Objective Last 24 Hour Vital Signs Date Time Temp Pulse Resp B/P (MAP) Pulse Ox O2 Delivery O2 Flow Rate FiO2 01/23/20 09:16 133/67 01/23/20 09:09 133/67 01/23/20 09:08 66 133/67 01/23/20 09:00 Room Air Room Air 01/23/20 08:00 98.2 66 19 133/67 (89) 95 01/23/20 04:00 98.6 66 18 108/57 (74) 95 01/23/20 00:00 98.2 74 20 140/87 (104) 95 01/22/20 23:15 140/87 01/22/20 21:00 Room Air Room Air 01/22/20 21:00 73 106/56 01/22/20 20:00 97.3 73 18 106/56 (73) 94 01/22/20 19:36 97 Room Air 21 01/22/20 19:35 75 18 97 Room Air 21 01/22/20 17:44 122/74 01/22/20 16:37 98.2 77 19 122/74 (90) 97 01/22/20 12:48 117/74 01/22/20 12:16 121/68 01/22/20 12:00 65 01/22/20 12:00 79 85 82 01/22/20 11:56 97.7 77 19 121/68 (85) 98 Intake and Output 01/22/20 01/23/20 19:00 07:00 Intake Total 1600 ml 620 ml Output Total 1200 ml Balance 400 ml 620 ml Intake Oral 1600 ml 620 ml Output Urine Total 1200 ml # Voids 8 Laboratory Tests 01/23/20 05:20: White Blood Count 8.5, Red Blood Count 3.95L, Hemoglobin 12.7L, Hematocrit 35.4L , Mean Corpuscular Volume 90, Mean Corpuscular Hemoglobin 32.0H, Mean Corpuscular Hemoglobin Concent 35.7, Red Cell Distribution Width 11.8, Platelet Count 296, Mean Platelet Volume 5.5L, Neutrophils (%) (Auto) 58.5, Lymphocytes ( %) (Auto) 27.0, Monocytes (%) (Auto) 9.2, Eosinophils (%) (Auto) 3.9H, Basophils (%) (Auto) 1.4, Sodium Level 136, Potassium Level 4.7, Chloride Level 100, Carbon Dioxide Level 26, Anion Gap 10, Blood Urea Nitrogen 18, Creatinine 1.0, Estimat Glomerular Filtration Rate > 60, Glucose Level 305H, Calcium Level 8.7 Height (Feet): 5 Height (Inches): 4.00 Weight (Pounds): 247 General Appearance: lethargic EENT: normal ENT inspection Neck: normal alignment Cardiovascular: normal peripheral pulses, normal rate, regular rhythm Respiratory/Chest: chest wall non-tender, lungs clear, normal breath sounds Abdomen: normal bowel sounds, non tender, soft Extremities: normal inspection Edema: no edema noted Arm (L), no edema noted Arm (R), no edema noted Leg (L), no edema noted Leg (R), no edema noted Pedal (L), no edema noted Pedal (R), no edema noted Generalized Neurologic: motor weakness Skin: normal pigmentation, warm/dry Objective sl chest pain Fermín Griggs DO Jan 23, 2020 10:58
[2020-01-23 12:17] VITALS: BP 130/69
--- NOTE | 2020-01-23 14:09 | Infectious Diseases Prog Note ---
Assessment/Plan Assessment/Plan ASSESSMENT: The patient is a 54-year-old male with: Shortness of breath Afebrile Elevated white blood cells Leukopenia Covid-19 : Negative History of CHF. istory of CAD History of hypothyroidism. History of hypertension. History of chronic obstructive pulmonary disease. Liver cirrhosis. History of drug abuse in the past. GERD PLAN: monitor pt offof AB R x 02/19 Sp doxycycline and Rocephin day # 03/03 Monitor CBC. Monitor BMP Monitor chest x-ray. DW PCP Subjective Allergies: Coded Allergies: No Known Allergies (Unverified , 12/08/19) Subjective afebrile comfortable Objective Vital Signs Last 24 Hour Vital Signs Date Time Temp Pulse Resp B/P (MAP) Pulse Ox O2 Delivery O2 Flow Rate FiO2 01/23/20 12:21 130/69 01/23/20 12:17 98.2 68 18 130/69 (89) 93 01/23/20 09:16 133/67 01/23/20 09:09 133/67 01/23/20 09:08 66 133/67 01/23/20 09:00 Room Air Room Air 01/23/20 08:00 98.2 66 19 133/67 (89) 95 01/23/20 04:00 98.6 66 18 108/57 (74) 95 01/23/20 00:00 98.2 74 20 140/87 (104) 95 01/22/20 23:15 140/87 01/22/20 21:00 Room Air Room Air 01/22/20 21:00 73 106/56 01/22/20 20:00 97.3 73 18 106/56 (73) 94 01/22/20 19:36 97 Room Air 21 01/22/20 19:35 75 18 97 Room Air 21 01/22/20 17:44 122/74 01/22/20 16:37 98.2 77 19 122/74 (90) 97 Height (Feet): 5 Height (Inches): 4.00 Weight (Pounds): 247 HEENT: anicteric Respiratory/Chest: normal breath sounds Cardiovascular: regular rhythm Abdomen: soft, non tender Laboratory Tests Test 01/23/20 05:20 White Blood Count 8.5 K/UL (4.8-10.8) Red Blood Count 3.95 M/UL (4.70-6.10) L Hemoglobin 12.7 G/DL (14.2-18.0) L Hematocrit 35.4 % (42.0-52.0) L Mean Corpuscular Volume 90 FL (80-99) Mean Corpuscular Hemoglobin 32.0 PG (27.0-31.0) H Mean Corpuscular Hemoglobin Concent 35.7 G/DL (32.0-36.0) Red Cell Distribution Width 11.8 % (11.6-14.8) Platelet Count 296 K/UL (150-450) Mean Platelet Volume 5.5 FL (6.5-10.1) L Neutrophils (%) (Auto) 58.5 % (45.0-75.0) Lymphocytes (%) (Auto) 27.0 % (20.0-45.0) Monocytes (%) (Auto) 9.2 % (1.0-10.0) Eosinophils (%) (Auto) 3.9 % (0.0-3.0) H Basophils (%) (Auto) 1.4 % (0.0-2.0) Sodium Level 136 MMOL/L (136-145) Potassium Level 4.7 MMOL/L (3.5-5.1) Chloride Level 100 MMOL/L (98-107) Carbon Dioxide Level 26 MMOL/L (21-32) Anion Gap 10 mmol/L (5-15) Blood Urea Nitrogen 18 mg/dL (7-18) Creatinine 1.0 MG/DL (0.55-1.30) Estimat Glomerular Filtration Rate > 60 mL/min (>60) Glucose Level 305 MG/DL (74-106) H Calcium Level 8.7 MG/DL (8.5-10.1) Current Medications Medications (Trade) Dose Ordered Sig/Rodney Route PRN Reason Start Time Stop Time Status Last Admin Dose Admin Acetaminophen (Tylenol) 650 mg Q4H PRN ORAL Fever 01/22/20 17:00 02/12/20 16:59 Albuterol/ Ipratropium (Albuterol/ Ipratropium) 3 ml Q4H PRN HHN Shortness of Breath 01/22/20 19:45 01/23/20 15:44 Aspirin (Ecotrin) 81 mg DAILY ORAL 01/23/20 09:00 02/28/20 08:59 01/23/20 09:08 Bupropion HCl (Wellbutrin SR) 150 mg EVERY 12 HOURS ORAL 01/22/20 21:00 02/13/20 08:59 Clopidogrel Bisulfate (Plavix) 75 mg DAILY ORAL 01/23/20 09:00 02/13/20 08:59 01/23/20 09:09 Dextrose (Dextrose 50%) 25 ml Q30M PRN IV Hypoglycemia 01/22/20 17:00 04/18/20 18:59 Dextrose (Dextrose 50%) 50 ml Q30M PRN IV Hypoglycemia 01/22/20 17:00 04/18/20 18:59 Gabapentin (Neurontin) 300 mg BEDTIME ORAL 01/22/20 21:00 02/12/20 22:29 01/22/20 21:00 Heparin Sodium (Porcine) (Heparin 5000 units/ml) 5,000 units EVERY 12 HOURS SUBQ 01/22/20 21:00 02/28/20 08:59 01/23/20 09:07 Insulin Aspart (NovoLOG) BEFORE MEALS AND HS SUBQ 01/22/20 21:00 04/18/20 20:59 01/23/20 12:20 Isosorbide Dinitrate (Isordil) 10 mg TID ORAL 01/22/20 18:00 02/13/20 17:59 01/23/20 12:21 Loperamide HCl (Imodium) 4 mg Q6H PRN ORAL DIARRHEA 01/23/20 11:00 02/22/20 10:59 Metoprolol Succinate (Toprol XL) 50 mg Q12HR ORAL 01/22/20 21:00 04/17/20 19:29 01/23/20 09:08 Mirtazapine (Remeron) 7.5 mg BEDTIME ORAL 01/22/20 21:00 02/12/20 22:29 Nitroglycerin (Ntg) 0.4 mg Q5M PRN SL Prn Chest Pain 01/22/20 16:50 02/16/20 11:44 01/23/20 09:16 Ondansetron HCl (Zofran) 4 mg Q6H PRN IVP Nausea & Vomiting 01/22/20 18:00 02/12/20 17:59 01/22/20 23:13 Polyethylene Glycol (Miralax) 17 gm DAILYPRN PRN ORAL Constipation 01/23/20 15:45 02/12/20 15:44 Promethazine HCl/ Codeine (Phenergan with Codeine) 5 ml Q4H PRN ORAL For Cough 01/22/20 19:45 02/12/20 15:44 01/23/20 09:07 Theophylline (Jose-Dur) 100 mg EVERY 12 HOURS ORAL 01/22/20 21:00 02/13/20 08:59 01/23/20 09:08 Berry Taylor MD Jan 23, 2020 14:09
--- NOTE | 2020-01-23 14:32 | Pulmonology Progress Note ---
Assessment/Plan Problems: (1) Dizziness (2) Acute bronchitis (3) Viral syndrome (4) Mild diastolic dysfunction (5) Cardiac left ventricular ejection fraction greater than 40 percent (6) HTN (hypertension) (7) Hypothyroid (8) Diabetes Assessment/Plan pt is still dizzy sputum culture and blood cultures are negative COVID-19 virus negative adjust cardiac meds, sliding scale, BS still high wll reviewed dvt prophylaxis. Subjective ROS Limited/Unobtainable: No Interval Events: still dizzy with episodes of chest pain Allergies: Coded Allergies: No Known Allergies (Unverified , 12/08/19) Objective Last 24 Hour Vital Signs Date Time Temp Pulse Resp B/P (MAP) Pulse Ox O2 Delivery O2 Flow Rate FiO2 01/23/20 12:21 130/69 01/23/20 12:17 98.2 68 18 130/69 (89) 93 01/23/20 09:16 133/67 01/23/20 09:09 133/67 01/23/20 09:08 66 133/67 01/23/20 09:00 Room Air Room Air 01/23/20 08:00 98.2 66 19 133/67 (89) 95 01/23/20 04:00 98.6 66 18 108/57 (74) 95 01/23/20 00:00 98.2 74 20 140/87 (104) 95 01/22/20 23:15 140/87 01/22/20 21:00 Room Air Room Air 01/22/20 21:00 73 106/56 01/22/20 20:00 97.3 73 18 106/56 (73) 94 01/22/20 19:36 97 Room Air 21 01/22/20 19:35 75 18 97 Room Air 21 01/22/20 17:44 122/74 01/22/20 16:37 98.2 77 19 122/74 (90) 97 Intake and Output 01/22/20 01/23/20 19:00 07:00 Intake Total 1600 ml 620 ml Output Total 1200 ml Balance 400 ml 620 ml Intake Oral 1600 ml 620 ml Output Urine Total 1200 ml # Voids 8 Objective General Appearance: WD/WN HEENT: normocephalic, atraumatic Respiratory/Chest: chest wall non-tender, lungs clear Breasts: no masses Cardiovascular: normal peripheral pulses Abdomen: normal bowel sounds, soft, non tender Genitourinary: normal external genitalia Extremities: no cyanosis Skin: no rash 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 Laboratory Tests 01/23/20 05:20: White Blood Count 8.5, Red Blood Count 3.95L, Hemoglobin 12.7L, Hematocrit 35.4L , Mean Corpuscular Volume 90, Mean Corpuscular Hemoglobin 32.0H, Mean Corpuscular Hemoglobin Concent 35.7, Red Cell Distribution Width 11.8, Platelet Count 296, Mean Platelet Volume 5.5L, Neutrophils (%) (Auto) 58.5, Lymphocytes ( %) (Auto) 27.0, Monocytes (%) (Auto) 9.2, Eosinophils (%) (Auto) 3.9H, Basophils (%) (Auto) 1.4, Sodium Level 136, Potassium Level 4.7, Chloride Level 100, Carbon Dioxide Level 26, Anion Gap 10, Blood Urea Nitrogen 18, Creatinine 1.0, Estimat Glomerular Filtration Rate > 60, Glucose Level 305H, Calcium Level 8.7 Current Medications Medications (Trade) Dose Ordered Sig/Rodney Route PRN Reason Start Time Stop Time Status Last Admin Dose Admin Acetaminophen (Tylenol) 650 mg Q4H PRN ORAL Fever 01/22/20 17:00 02/12/20 16:59 Albuterol/ Ipratropium (Albuterol/ Ipratropium) 3 ml Q4H PRN HHN Shortness of Breath 01/22/20 19:45 01/23/20 15:44 Aspirin (Ecotrin) 81 mg DAILY ORAL 01/23/20 09:00 02/28/20 08:59 01/23/20 09:08 Bupropion HCl (Wellbutrin SR) 150 mg EVERY 12 HOURS ORAL 01/22/20 21:00 02/13/20 08:59 Clopidogrel Bisulfate (Plavix) 75 mg DAILY ORAL 01/23/20 09:00 02/13/20 08:59 01/23/20 09:09 Dextrose (Dextrose 50%) 25 ml Q30M PRN IV Hypoglycemia 01/22/20 17:00 04/18/20 18:59 Dextrose (Dextrose 50%) 50 ml Q30M PRN IV Hypoglycemia 01/22/20 17:00 04/18/20 18:59 Gabapentin (Neurontin) 300 mg BEDTIME ORAL 01/22/20 21:00 02/12/20 22:29 01/22/20 21:00 Heparin Sodium (Porcine) (Heparin 5000 units/ml) 5,000 units EVERY 12 HOURS SUBQ 01/22/20 21:00 02/28/20 08:59 01/23/20 09:07 Insulin Aspart (NovoLOG) BEFORE MEALS AND HS SUBQ 01/22/20 21:00 04/18/20 20:59 01/23/20 12:20 Isosorbide Dinitrate (Isordil) 10 mg TID ORAL 01/22/20 18:00 02/13/20 17:59 01/23/20 12:21 Loperamide HCl (Imodium) 4 mg Q6H PRN ORAL DIARRHEA 01/23/20 11:00 02/22/20 10:59 Metoprolol Succinate (Toprol XL) 50 mg Q12HR ORAL 01/22/20 21:00 04/17/20 19:29 01/23/20 09:08 Mirtazapine (Remeron) 7.5 mg BEDTIME ORAL 01/22/20 21:00 02/12/20 22:29 Nitroglycerin (Ntg) 0.4 mg Q5M PRN SL Prn Chest Pain 01/22/20 16:50 02/16/20 11:44 01/23/20 09:16 Ondansetron HCl (Zofran) 4 mg Q6H PRN IVP Nausea & Vomiting 01/22/20 18:00 02/12/20 17:59 01/22/20 23:13 Polyethylene Glycol (Miralax) 17 gm DAILYPRN PRN ORAL Constipation 01/23/20 15:45 02/12/20 15:44 Promethazine HCl/ Codeine (Phenergan with Codeine) 5 ml Q4H PRN ORAL For Cough 01/22/20 19:45 02/12/20 15:44 01/23/20 09:07 Theophylline (Jose-Dur) 100 mg EVERY 12 HOURS ORAL 01/22/20 21:00 02/13/20 08:59 01/23/20 09:08 Richard Hood MD Jan 23, 2020 14:32
[2020-01-23] MEDS ORDERED: Miralax 17gm pkt ORAL PRN (15:45)
[2020-01-23 16:00] VITALS: BP 125/64
[2020-01-23 20:00] VITALS: BP 118/59
[2020-01-24] VITALS: BP 123/53
[2020-01-24 04:00] VITALS: BP 123/67
[2020-01-24 06:51] LABS: BASOPHILS % (AUTO) 1.3 % (0.0-2.0); EOSINOPHILS % (AUTO) 4.7 % (0.0-3.0); HEMATOCRIT 36.2 % (42.0-52.0); HEMOGLOBIN 12.9 G/DL (14.2-18.0); MEAN CORPUSCULAR VOLUME 90 FL (80-99); MONOCYTES % (AUTO) 8.5 % (1.0-10.0); NEUTROPHILS % (AUTO) 58.6 % (45.0-75.0); PLATELET COUNT 292 K/UL (150-450); RED BLOOD COUNT 4.03 M/UL (4.70-6.10); RED CELL DISTRIBUTION WIDTH 11.8 % (11.6-14.8); WHITE BLOOD COUNT 7.1 K/UL (4.8-10.8)
[2020-01-24 06:59] LABS: ANION GAP 13 mmol/L (5-15); BLOOD UREA NITROGEN 15 mg/dL (7-18); CARBON DIOXIDE 24 MMOL/L (21-32); CHLORIDE 98 MMOL/L (98-107); POTASSIUM 4.3 MMOL/L (3.5-5.1); SODIUM 135 MMOL/L (136-145)
[2020-01-24 08:00] VITALS: BP 112/56
[2020-01-24] MEDS: BuPROPion SR 150mg tab ORAL SCH ×2 (08:48→21:00)
[2020-01-24] MEDS: Theophylline ER 100mg ORAL SCH ×2 (08:48→21:04)
[2020-01-24] MEDS: Aspirin EC 81mg tab ORAL SCH (08:48)
[2020-01-24] MEDS: Metoprolol Succinate XL 50mg tab ORAL SCH ×2 (08:49→21:14)
[2020-01-24] MEDS: Heparin 5000 units/ml inj SUBQ SCH ×2 (08:50→21:13)
[2020-01-24] MEDS: NovoLOG Insulin Flexpen SUBQ SCH ×3 (11:30→21:12)
[2020-01-24 12:00] VITALS: BP 120/60
--- NOTE | 2020-01-24 12:27 | General Progress Note ---
Assessment/Plan Problem List: (1) Diabetes ICD Codes: E11.9 - Type 2 diabetes mellitus without complications SNOMED: 88461538 (2) Hypothyroid ICD Codes: E03.9 - Hypothyroidism, unspecified SNOMED: 82099838 (3) Chest pain ICD Codes: R07.9 - Chest pain, unspecified SNOMED: 16484376 Status: stable, progressing Assessment/Plan: o2 pulm tx prn pain control cbc bmp am dc plan snf Subjective Constitutional: Reports: weakness Allergies: Coded Allergies: No Known Allergies (Unverified , 12/08/19) All Systems: reviewed and negative except above Subjective sleepy calm Objective Last 24 Hour Vital Signs Date Time Temp Pulse Resp B/P (MAP) Pulse Ox O2 Delivery O2 Flow Rate FiO2 01/24/20 12:00 97.8 67 20 120/60 (80) 95 01/24/20 09:00 Room Air Room Air 01/24/20 08:49 66 112/56 01/24/20 08:48 112/56 01/24/20 08:00 97.6 66 20 112/56 (74) 94 01/24/20 04:00 98.0 69 20 123/67 (85) 96 01/24/20 00:00 98.4 73 20 123/53 (76) 95 01/23/20 21:00 Room Air Room Air 01/23/20 20:34 74 140/58 01/23/20 20:00 98.6 74 20 118/59 (78) 98 01/23/20 19:23 78 18 98 Room Air 21 01/23/20 19:23 98 Room Air 21 01/23/20 18:10 125/64 01/23/20 16:00 98.7 68 19 125/64 (84) 94 Intake and Output 01/23/20 01/24/20 19:00 07:00 Intake Total 1200 ml 1720 ml Balance 1200 ml 1720 ml Intake Oral 1200 ml 1720 ml # Voids 5 4 # Bowel Movements 2 Laboratory Tests 01/24/20 05:59: White Blood Count 7.1, Red Blood Count 4.03L, Hemoglobin 12.9L, Hematocrit 36.2L , Mean Corpuscular Volume 90, Mean Corpuscular Hemoglobin 31.9H, Mean Corpuscular Hemoglobin Concent 35.5, Red Cell Distribution Width 11.8, Platelet Count 292, Mean Platelet Volume 5.7L, Neutrophils (%) (Auto) 58.6, Lymphocytes ( %) (Auto) 27.0, Monocytes (%) (Auto) 8.5, Eosinophils (%) (Auto) 4.7H, Basophils (%) (Auto) 1.3, Sodium Level 135L, Potassium Level 4.3, Chloride Level 98, Carbon Dioxide Level 24, Anion Gap 13, Blood Urea Nitrogen 15, Creatinine 1.0, Estimat Glomerular Filtration Rate > 60, Glucose Level 348H, Calcium Level 9.0 Height (Feet): 5 Height (Inches): 4.00 Weight (Pounds): 247 General Appearance: lethargic EENT: normal ENT inspection Neck: normal alignment Cardiovascular: normal peripheral pulses, normal rate, regular rhythm Respiratory/Chest: chest wall non-tender, lungs clear, normal breath sounds Abdomen: normal bowel sounds, non tender, soft Extremities: normal inspection Edema: no edema noted Arm (L), no edema noted Arm (R), no edema noted Leg (L), no edema noted Leg (R), no edema noted Pedal (L), no edema noted Pedal (R), no edema noted Generalized Neurologic: motor weakness Skin: normal pigmentation, warm/dry Objective sl chest pain Fermín Griggs DO Jan 24, 2020 12:27
--- NOTE | 2020-01-24 12:42 | Infectious Diseases Prog Note ---
Assessment/Plan Assessment/Plan ASSESSMENT: The patient is a 54-year-old male with: Shortness of breath Afebrile Elevated white blood cells Leukopenia Covid-19 : Negative History of CHF. istory of CAD History of hypothyroidism. History of hypertension. History of chronic obstructive pulmonary disease. Liver cirrhosis. History of drug abuse in the past. GERD PLAN: monitor pt offof AB R x 02/19 Sp doxycycline and Rocephin day # / Monitor CBC. Monitor BMP Monitor chest x-ray. DW PCP Subjective Allergies: Coded Allergies: No Known Allergies (Unverified , 12/08/19) Subjective afebrile comfortable Objective Vital Signs Last 24 Hour Vital Signs Date Time Temp Pulse Resp B/P (MAP) Pulse Ox O2 Delivery O2 Flow Rate FiO2 01/24/20 12:00 97.8 67 20 120/60 (80) 95 01/24/20 09:00 Room Air Room Air 01/24/20 08:49 66 112/56 01/24/20 08:48 112/56 01/24/20 08:00 97.6 66 20 112/56 (74) 94 01/24/20 04:00 98.0 69 20 123/67 (85) 96 01/24/20 00:00 98.4 73 20 123/53 (76) 95 01/23/20 21:00 Room Air Room Air 01/23/20 20:34 74 140/58 01/23/20 20:00 98.6 74 20 118/59 (78) 98 01/23/20 19:23 78 18 98 Room Air 21 01/23/20 19:23 98 Room Air 21 01/23/20 18:10 125/64 01/23/20 16:00 98.7 68 19 125/64 (84) 94 Height (Feet): 5 Height (Inches): 4.00 Weight (Pounds): 247 HEENT: atraumatic Respiratory/Chest: no respiratory distress Cardiovascular: regular rhythm Abdomen: no organomegaly Laboratory Tests Test 01/24/20 05:59 White Blood Count 7.1 K/UL (4.8-10.8) Red Blood Count 4.03 M/UL (4.70-6.10) L Hemoglobin 12.9 G/DL (14.2-18.0) L Hematocrit 36.2 % (42.0-52.0) L Mean Corpuscular Volume 90 FL (80-99) Mean Corpuscular Hemoglobin 31.9 PG (27.0-31.0) H Mean Corpuscular Hemoglobin Concent 35.5 G/DL (32.0-36.0) Red Cell Distribution Width 11.8 % (11.6-14.8) Platelet Count 292 K/UL (150-450) Mean Platelet Volume 5.7 FL (6.5-10.1) L Neutrophils (%) (Auto) 58.6 % (45.0-75.0) Lymphocytes (%) (Auto) 27.0 % (20.0-45.0) Monocytes (%) (Auto) 8.5 % (1.0-10.0) Eosinophils (%) (Auto) 4.7 % (0.0-3.0) H Basophils (%) (Auto) 1.3 % (0.0-2.0) Sodium Level 135 MMOL/L (136-145) L Potassium Level 4.3 MMOL/L (3.5-5.1) Chloride Level 98 MMOL/L (98-107) Carbon Dioxide Level 24 MMOL/L (21-32) Anion Gap 13 mmol/L (5-15) Blood Urea Nitrogen 15 mg/dL (7-18) Creatinine 1.0 MG/DL (0.55-1.30) Estimat Glomerular Filtration Rate > 60 mL/min (>60) Glucose Level 348 MG/DL (74-106) H Calcium Level 9.0 MG/DL (8.5-10.1) Current Medications Medications (Trade) Dose Ordered Sig/Rodney Route PRN Reason Start Time Stop Time Status Last Admin Dose Admin Acetaminophen (Tylenol) 650 mg Q4H PRN ORAL Fever 01/22/20 17:00 02/12/20 16:59 Aspirin (Ecotrin) 81 mg DAILY ORAL 01/23/20 09:00 02/28/20 08:59 01/24/20 08:48 Bupropion HCl (Wellbutrin SR) 150 mg EVERY 12 HOURS ORAL 01/22/20 21:00 02/13/20 08:59 01/24/20 08:48 Clopidogrel Bisulfate (Plavix) 75 mg DAILY ORAL 01/23/20 09:00 02/13/20 08:59 01/24/20 08:48 Dextrose (Dextrose 50%) 25 ml Q30M PRN IV Hypoglycemia 01/22/20 17:00 04/18/20 18:59 Dextrose (Dextrose 50%) 50 ml Q30M PRN IV Hypoglycemia 01/22/20 17:00 04/18/20 18:59 Gabapentin (Neurontin) 300 mg BEDTIME ORAL 01/22/20 21:00 02/12/20 22:29 01/23/20 20:32 Heparin Sodium (Porcine) (Heparin 5000 units/ml) 5,000 units EVERY 12 HOURS SUBQ 01/22/20 21:00 02/28/20 08:59 01/24/20 08:50 Insulin Aspart (NovoLOG) BEFORE MEALS AND HS SUBQ 01/22/20 21:00 04/18/20 20:59 01/24/20 11:30 Isosorbide Dinitrate (Isordil) 10 mg TID ORAL 01/22/20 18:00 02/13/20 17:59 01/24/20 08:48 Loperamide HCl (Imodium) 4 mg Q6H PRN ORAL DIARRHEA 01/23/20 11:00 02/22/20 10:59 Metoprolol Succinate (Toprol XL) 50 mg Q12HR ORAL 01/22/20 21:00 04/17/20 19:29 01/24/20 08:49 Mirtazapine (Remeron) 7.5 mg BEDTIME ORAL 01/22/20 21:00 02/12/20 22:29 Nitroglycerin (Ntg) 0.4 mg Q5M PRN SL Prn Chest Pain 01/22/20 16:50 02/16/20 11:44 01/23/20 09:16 Ondansetron HCl (Zofran) 4 mg Q6H PRN IVP Nausea & Vomiting 01/22/20 18:00 02/12/20 17:59 01/22/20 23:13 Polyethylene Glycol (Miralax) 17 gm DAILYPRN PRN ORAL Constipation 01/23/20 15:45 02/12/20 15:44 Promethazine HCl/ Codeine (Phenergan with Codeine) 5 ml Q4H PRN ORAL For Cough 01/22/20 19:45 02/12/20 15:44 01/23/20 15:59 Theophylline (Jose-Dur) 100 mg EVERY 12 HOURS ORAL 01/22/20 21:00 02/13/20 08:59 01/24/20 08:48 Berry Taylor MD Jan 24, 2020 12:42
[2020-01-24] MEDS: Promethazine/Codeine 5ml UD ORAL PRN ×2 (14:24→21:33)
[2020-01-24 16:00] VITALS: BP 133/80
--- NOTE | 2020-01-24 16:03 | Cardiology Progress Note ---
Assessment/Plan Assessment/Plan 1. Chronic recurrent chest pain, no evidence of myonecrosis. 2. Coronary artery disease status post coronary artery bypass grafting and previous stenting. 3. Obesity. 4. Possible small vessel coronary disease. 5. Diabetes mellitus. 6. Hypertension. c/o dizziness on stadign will check orthostatic vitals nto doen today i susanaut talked with rn to perform and call mew off lasix for opal pst few days bnp normal tele remains sinus all trop neg bp seem fine hr is ok Subjective Cardiovascular: Reports: chest pain Respiratory: Reports: cough, sputum Gastrointestinal/Abdominal: Denies: abdominal pain Subjective back pain and chset pain fore th pst 3 days Objective Last 24 Hour Vital Signs Date Time Temp Pulse Resp B/P (MAP) Pulse Ox O2 Delivery O2 Flow Rate FiO2 01/24/20 14:19 120/60 01/24/20 12:00 97.8 67 20 120/60 (80) 95 01/24/20 09:00 Room Air Room Air 01/24/20 08:49 66 112/56 01/24/20 08:48 112/56 01/24/20 08:00 97.6 66 20 112/56 (74) 94 01/24/20 04:00 98.0 69 20 123/67 (85) 96 01/24/20 00:00 98.4 73 20 123/53 (76) 95 01/23/20 21:00 Room Air Room Air 01/23/20 20:34 74 140/58 01/23/20 20:00 98.6 74 20 118/59 (78) 98 01/23/20 19:23 78 18 98 Room Air 21 01/23/20 19:23 98 Room Air 21 01/23/20 18:10 125/64 General Appearance: no apparent distress, alert Neck: supple Cardiovascular: normal rate Respiratory/Chest: lungs clear Abdomen: normal bowel sounds, non tender, soft Extremities: no swelling Intake and Output 01/23/20 01/24/20 19:00 07:00 Intake Total 1200 ml 1720 ml Balance 1200 ml 1720 ml Intake Oral 1200 ml 1720 ml # Voids 5 4 # Bowel Movements 2 Laboratory Tests Test 01/24/20 05:59 White Blood Count 7.1 K/UL (4.8-10.8) Red Blood Count 4.03 M/UL (4.70-6.10) L Hemoglobin 12.9 G/DL (14.2-18.0) L Hematocrit 36.2 % (42.0-52.0) L Mean Corpuscular Volume 90 FL (80-99) Mean Corpuscular Hemoglobin 31.9 PG (27.0-31.0) H Mean Corpuscular Hemoglobin Concent 35.5 G/DL (32.0-36.0) Red Cell Distribution Width 11.8 % (11.6-14.8) Platelet Count 292 K/UL (150-450) Mean Platelet Volume 5.7 FL (6.5-10.1) L Neutrophils (%) (Auto) 58.6 % (45.0-75.0) Lymphocytes (%) (Auto) 27.0 % (20.0-45.0) Monocytes (%) (Auto) 8.5 % (1.0-10.0) Eosinophils (%) (Auto) 4.7 % (0.0-3.0) H Basophils (%) (Auto) 1.3 % (0.0-2.0) Sodium Level 135 MMOL/L (136-145) L Potassium Level 4.3 MMOL/L (3.5-5.1) Chloride Level 98 MMOL/L (98-107) Carbon Dioxide Level 24 MMOL/L (21-32) Anion Gap 13 mmol/L (5-15) Blood Urea Nitrogen 15 mg/dL (7-18) Creatinine 1.0 MG/DL (0.55-1.30) Estimat Glomerular Filtration Rate > 60 mL/min (>60) Glucose Level 348 MG/DL (74-106) H Calcium Level 9.0 MG/DL (8.5-10.1) Sarkis Guthrie MD Jan 24, 2020 16:03
--- NOTE | 2020-01-24 18:01 | Pulmonology Progress Note ---
Assessment/Plan Problems: (1) Dizziness (2) Acute bronchitis (3) Viral syndrome (4) Mild diastolic dysfunction (5) Cardiac left ventricular ejection fraction greater than 40 percent (6) HTN (hypertension) (7) Hypothyroid (8) Diabetes Assessment/Plan MRI of brain neurology consult pt is still dizzy sputum culture and blood cultures are negative COVID-19 virus negative adjust cardiac meds, sliding scale, BS still high wll reviewed dvt prophylaxis. Subjective ROS Limited/Unobtainable: No HEENT: Repors: no symptoms Respiratory: Reports: no symptoms Cardiovascular: Reports: no symptoms Allergies: Coded Allergies: No Known Allergies (Unverified , 12/08/19) Objective Last 24 Hour Vital Signs Date Time Temp Pulse Resp B/P (MAP) Pulse Ox O2 Delivery O2 Flow Rate FiO2 01/24/20 17:49 138/86 01/24/20 16:47 67 70 77 01/24/20 16:00 97.5 70 18 133/80 (97) 94 01/24/20 14:19 120/60 01/24/20 12:00 97.8 67 20 120/60 (80) 95 01/24/20 09:00 Room Air Room Air 01/24/20 08:49 66 112/56 01/24/20 08:48 112/56 01/24/20 08:00 97.6 66 20 112/56 (74) 94 01/24/20 04:00 98.0 69 20 123/67 (85) 96 01/24/20 00:00 98.4 73 20 123/53 (76) 95 01/23/20 21:00 Room Air Room Air 01/23/20 20:34 74 140/58 01/23/20 20:00 98.6 74 20 118/59 (78) 98 01/23/20 19:23 78 18 98 Room Air 21 01/23/20 19:23 98 Room Air 21 01/23/20 18:10 125/64 Intake and Output 01/23/20 01/24/20 19:00 07:00 Intake Total 1200 ml 1720 ml Balance 1200 ml 1720 ml Intake Oral 1200 ml 1720 ml # Voids 5 4 # Bowel Movements 2 Objective General Appearance: WD/WN HEENT: normocephalic, atraumatic Respiratory/Chest: chest wall non-tender, lungs clear Breasts: no masses Cardiovascular: normal peripheral pulses Abdomen: normal bowel sounds, soft, non tender Genitourinary: normal external genitalia Extremities: no cyanosis Skin: no rash 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 Laboratory Tests 01/24/20 05:59: White Blood Count 7.1, Red Blood Count 4.03L, Hemoglobin 12.9L, Hematocrit 36.2L , Mean Corpuscular Volume 90, Mean Corpuscular Hemoglobin 31.9H, Mean Corpuscular Hemoglobin Concent 35.5, Red Cell Distribution Width 11.8, Platelet Count 292, Mean Platelet Volume 5.7L, Neutrophils (%) (Auto) 58.6, Lymphocytes ( %) (Auto) 27.0, Monocytes (%) (Auto) 8.5, Eosinophils (%) (Auto) 4.7H, Basophils (%) (Auto) 1.3, Sodium Level 135L, Potassium Level 4.3, Chloride Level 98, Carbon Dioxide Level 24, Anion Gap 13, Blood Urea Nitrogen 15, Creatinine 1.0, Estimat Glomerular Filtration Rate > 60, Glucose Level 348H, Calcium Level 9.0 Current Medications Medications (Trade) Dose Ordered Sig/Rodney Route PRN Reason Start Time Stop Time Status Last Admin Dose Admin Acetaminophen (Tylenol) 650 mg Q4H PRN ORAL Fever 01/22/20 17:00 02/12/20 16:59 Aspirin (Ecotrin) 81 mg DAILY ORAL 01/23/20 09:00 02/28/20 08:59 01/24/20 08:48 Bupropion HCl (Wellbutrin SR) 150 mg EVERY 12 HOURS ORAL 01/22/20 21:00 02/13/20 08:59 01/24/20 08:48 Clopidogrel Bisulfate (Plavix) 75 mg DAILY ORAL 01/23/20 09:00 02/13/20 08:59 01/24/20 08:48 Dextrose (Dextrose 50%) 25 ml Q30M PRN IV Hypoglycemia 01/22/20 17:00 04/18/20 18:59 Dextrose (Dextrose 50%) 50 ml Q30M PRN IV Hypoglycemia 01/22/20 17:00 04/18/20 18:59 Gabapentin (Neurontin) 300 mg BEDTIME ORAL 01/22/20 21:00 02/12/20 22:29 01/23/20 20:32 Heparin Sodium (Porcine) (Heparin 5000 units/ml) 5,000 units EVERY 12 HOURS SUBQ 01/22/20 21:00 02/28/20 08:59 01/24/20 08:50 Insulin Aspart (NovoLOG) BEFORE MEALS AND HS SUBQ 01/22/20 21:00 04/18/20 20:59 01/24/20 16:30 Isosorbide Dinitrate (Isordil) 10 mg TID ORAL 01/22/20 18:00 02/13/20 17:59 01/24/20 17:49 Loperamide HCl (Imodium) 4 mg Q6H PRN ORAL DIARRHEA 01/23/20 11:00 02/22/20 10:59 Metoprolol Succinate (Toprol XL) 50 mg Q12HR ORAL 01/22/20 21:00 04/17/20 19:29 01/24/20 08:49 Mirtazapine (Remeron) 7.5 mg BEDTIME ORAL 01/22/20 21:00 02/12/20 22:29 Nitroglycerin (Ntg) 0.4 mg Q5M PRN SL Prn Chest Pain 01/22/20 16:50 02/16/20 11:44 01/23/20 09:16 Ondansetron HCl (Zofran) 4 mg Q6H PRN IVP Nausea & Vomiting 01/22/20 18:00 02/12/20 17:59 01/22/20 23:13 Polyethylene Glycol (Miralax) 17 gm DAILYPRN PRN ORAL Constipation 01/23/20 15:45 02/12/20 15:44 Promethazine HCl/ Codeine (Phenergan with Codeine) 5 ml Q4H PRN ORAL For Cough 01/22/20 19:45 02/12/20 15:44 01/24/20 14:24 Theophylline (Jose-Dur) 100 mg EVERY 12 HOURS ORAL 01/22/20 21:00 02/13/20 08:59 01/24/20 08:48 Richard Hood MD Jan 24, 2020 18:01
[2020-01-24 20:00] VITALS: BP 110/59
[2020-01-25] VITALS: BP 112/62
[2020-01-25 04:00] VITALS: BP 118/60
[2020-01-25] MEDS: NovoLOG Insulin Flexpen SUBQ SCH ×4 (06:16→20:49)
[2020-01-25 07:37] LABS: ANION GAP 8 mmol/L (5-15); BASOPHILS % (AUTO) 1.1 % (0.0-2.0); BLOOD UREA NITROGEN 15 mg/dL (7-18); CALCIUM 9.1 MG/DL (8.5-10.1); CARBON DIOXIDE 28 MMOL/L (21-32); CHLORIDE 99 MMOL/L (98-107); EOSINOPHILS % (AUTO) 4.7 % (0.0-3.0); HEMATOCRIT 37.8 % (42.0-52.0); HEMOGLOBIN 13.4 G/DL (14.2-18.0); MEAN CORPUSCULAR VOLUME 90 FL (80-99); MONOCYTES % (AUTO) 8.6 % (1.0-10.0); NEUTROPHILS % (AUTO) 59.6 % (45.0-75.0); PLATELET COUNT 296 K/UL (150-450); POTASSIUM 4.1 MMOL/L (3.5-5.1); RED BLOOD COUNT 4.22 M/UL (4.70-6.10); SODIUM 135 MMOL/L (136-145); WHITE BLOOD COUNT 7.1 K/UL (4.8-10.8)
[2020-01-25 08:00] VITALS: BP_SYST 107; BP_SYST 98; BP_DIAS 51
[2020-01-25] MEDS: Heparin 5000 units/ml inj SUBQ SCH ×2 (08:50→20:49)
[2020-01-25] MEDS: Metoprolol Succinate XL 50mg tab ORAL SCH ×2 (09:00→20:46)
[2020-01-25] MEDS: Theophylline ER 100mg ORAL SCH ×2 (09:03→20:46)
[2020-01-25] MEDS: Aspirin EC 81mg tab ORAL SCH (09:03)
[2020-01-25] MEDS: BuPROPion SR 150mg tab ORAL SCH ×2 (09:04→20:25)
--- NOTE | 2020-01-25 09:20 | General Progress Note ---
Assessment/Plan Problem List: (1) Diabetes ICD Codes: E11.9 - Type 2 diabetes mellitus without complications SNOMED: 17788138 (2) Hypothyroid ICD Codes: E03.9 - Hypothyroidism, unspecified SNOMED: 35763040 (3) Chest pain ICD Codes: R07.9 - Chest pain, unspecified SNOMED: 22518465 Status: stable, progressing Assessment/Plan: o2 pulm tx prn pain control cbc bmp am dc plan snf Subjective Constitutional: Reports: weakness Allergies: Coded Allergies: No Known Allergies (Unverified , 12/08/19) All Systems: reviewed and negative except above Subjective sleepy calm Objective Last 24 Hour Vital Signs Date Time Temp Pulse Resp B/P (MAP) Pulse Ox O2 Delivery O2 Flow Rate FiO2 01/25/20 09:00 69 107/51 01/25/20 09:00 107/51 01/25/20 08:00 98.7 69 18 107/51 (69) 97 01/25/20 04:00 98.0 71 19 118/60 (79) 97 01/25/20 00:00 98.0 70 19 112/62 (79) 98 01/24/20 21:14 78 110/55 01/24/20 21:00 Room Air Room Air 01/24/20 20:05 83 18 97 Room Air 21 01/24/20 20:05 97 Room Air 21 01/24/20 20:00 97.9 78 20 110/59 (76) 98 01/24/20 17:49 138/86 01/24/20 16:47 67 70 77 01/24/20 16:00 97.5 70 18 133/80 (97) 94 01/24/20 14:19 120/60 01/24/20 12:00 97.8 67 20 120/60 (80) 95 Intake and Output 01/24/20 01/25/20 18:59 06:59 Intake Total 720 ml Balance 720 ml Intake Oral 720 ml # Voids 3 2 Laboratory Tests 01/25/20 06:45: White Blood Count 7.1, Red Blood Count 4.22L, Hemoglobin 13.4L, Hematocrit 37.8L , Mean Corpuscular Volume 90, Mean Corpuscular Hemoglobin 31.7H, Mean Corpuscular Hemoglobin Concent 35.3, Red Cell Distribution Width 12.0, Platelet Count 296, Mean Platelet Volume 5.7L, Neutrophils (%) (Auto) 59.6, Lymphocytes ( %) (Auto) 26.0, Monocytes (%) (Auto) 8.6, Eosinophils (%) (Auto) 4.7H, Basophils (%) (Auto) 1.1, Sodium Level 135L, Potassium Level 4.1, Chloride Level 99, Carbon Dioxide Level 28, Anion Gap 8, Blood Urea Nitrogen 15, Creatinine 1.0, Estimat Glomerular Filtration Rate > 60, Glucose Level 281H, Calcium Level 9.1 Height (Feet): 5 Height (Inches): 4.00 Weight (Pounds): 247 General Appearance: lethargic EENT: normal ENT inspection Neck: normal alignment Cardiovascular: normal peripheral pulses, normal rate, regular rhythm Respiratory/Chest: chest wall non-tender, lungs clear, normal breath sounds Abdomen: normal bowel sounds, non tender, soft Extremities: normal inspection Edema: no edema noted Arm (L), no edema noted Arm (R), no edema noted Leg (L), no edema noted Leg (R), no edema noted Pedal (L), no edema noted Pedal (R), no edema noted Generalized Neurologic: motor weakness Skin: normal pigmentation, warm/dry Objective sl chest pain Fermín Griggs DO Jan 25, 2020 09:20
[2020-01-25 12:00] VITALS: BP 91/56
--- NOTE | 2020-01-25 14:25 | Infectious Diseases Prog Note ---
Assessment/Plan Assessment/Plan ASSESSMENT: The patient is a 54-year-old male with: Shortness of breath Afebrile Elevated white blood cells Leukopenia Covid-19 : Negative History of CHF. istory of CAD History of hypothyroidism. History of hypertension. History of chronic obstructive pulmonary disease. Liver cirrhosis. History of drug abuse in the past. GERD PLAN: monitor pt offof AB R x 02/19 Sp doxycycline and Rocephin day # 03/03 Monitor CBC. Monitor BMP Monitor chest x-ray. DW PCP Subjective Allergies: Coded Allergies: No Known Allergies (Unverified , 12/08/19) Subjective afebrile off abx no leukocytosis Objective Vital Signs Last 24 Hour Vital Signs Date Time Temp Pulse Resp B/P (MAP) Pulse Ox O2 Delivery O2 Flow Rate FiO2 01/25/20 13:00 91/56 01/25/20 12:00 98.3 67 17 91/56 (68) 97 01/25/20 09:00 Room Air Room Air 01/25/20 09:00 69 107/51 01/25/20 09:00 107/51 01/25/20 08:00 98.7 69 18 107/51 (69) 97 01/25/20 04:00 98.0 71 19 118/60 (79) 97 01/25/20 00:00 98.0 70 19 112/62 (79) 98 01/24/20 21:14 78 110/55 01/24/20 21:00 Room Air Room Air 01/24/20 20:05 83 18 97 Room Air 21 01/24/20 20:05 97 Room Air 21 01/24/20 20:00 97.9 78 20 110/59 (76) 98 01/24/20 17:49 138/86 01/24/20 16:47 67 70 77 01/24/20 16:00 97.5 70 18 133/80 (97) 94 Height (Feet): 5 Height (Inches): 4.00 Weight (Pounds): 247 Objective HEENT: atraumatic Respiratory/Chest: no respiratory distress Cardiovascular: regular rhythm Abdomen: no organomegaly Laboratory Tests Test 01/25/20 06:45 White Blood Count 7.1 K/UL (4.8-10.8) Red Blood Count 4.22 M/UL (4.70-6.10) L Hemoglobin 13.4 G/DL (14.2-18.0) L Hematocrit 37.8 % (42.0-52.0) L Mean Corpuscular Volume 90 FL (80-99) Mean Corpuscular Hemoglobin 31.7 PG (27.0-31.0) H Mean Corpuscular Hemoglobin Concent 35.3 G/DL (32.0-36.0) Red Cell Distribution Width 12.0 % (11.6-14.8) Platelet Count 296 K/UL (150-450) Mean Platelet Volume 5.7 FL (6.5-10.1) L Neutrophils (%) (Auto) 59.6 % (45.0-75.0) Lymphocytes (%) (Auto) 26.0 % (20.0-45.0) Monocytes (%) (Auto) 8.6 % (1.0-10.0) Eosinophils (%) (Auto) 4.7 % (0.0-3.0) H Basophils (%) (Auto) 1.1 % (0.0-2.0) Sodium Level 135 MMOL/L (136-145) L Potassium Level 4.1 MMOL/L (3.5-5.1) Chloride Level 99 MMOL/L (98-107) Carbon Dioxide Level 28 MMOL/L (21-32) Anion Gap 8 mmol/L (5-15) Blood Urea Nitrogen 15 mg/dL (7-18) Creatinine 1.0 MG/DL (0.55-1.30) Estimat Glomerular Filtration Rate > 60 mL/min (>60) Glucose Level 281 MG/DL (74-106) H Calcium Level 9.1 MG/DL (8.5-10.1) Current Medications Medications (Trade) Dose Ordered Sig/Rodney Route PRN Reason Start Time Stop Time Status Last Admin Dose Admin Acetaminophen (Tylenol) 650 mg Q4H PRN ORAL Fever 01/22/20 17:00 02/12/20 16:59 Aspirin (Ecotrin) 81 mg DAILY ORAL 01/23/20 09:00 02/28/20 08:59 01/25/20 09:03 Bupropion HCl (Wellbutrin SR) 150 mg EVERY 12 HOURS ORAL 01/22/20 21:00 02/13/20 08:59 01/25/20 09:04 Clopidogrel Bisulfate (Plavix) 75 mg DAILY ORAL 01/23/20 09:00 02/13/20 08:59 01/25/20 09:03 Dextrose (Dextrose 50%) 25 ml Q30M PRN IV Hypoglycemia 01/22/20 17:00 04/18/20 18:59 Dextrose (Dextrose 50%) 50 ml Q30M PRN IV Hypoglycemia 01/22/20 17:00 04/18/20 18:59 Gabapentin (Neurontin) 300 mg BEDTIME ORAL 01/22/20 21:00 02/12/20 22:29 01/24/20 21:04 Heparin Sodium (Porcine) (Heparin 5000 units/ml) 5,000 units EVERY 12 HOURS SUBQ 01/22/20 21:00 02/28/20 08:59 01/25/20 08:50 Insulin Aspart (NovoLOG) BEFORE MEALS AND HS SUBQ 01/22/20 21:00 04/18/20 20:59 01/25/20 11:51 Isosorbide Dinitrate (Isordil) 10 mg TID ORAL 01/22/20 18:00 02/13/20 17:59 01/24/20 17:49 Loperamide HCl (Imodium) 4 mg Q6H PRN ORAL DIARRHEA 01/23/20 11:00 02/22/20 10:59 Metoprolol Succinate (Toprol XL) 50 mg Q12HR ORAL 01/22/20 21:00 04/17/20 19:29 01/24/20 21:14 Mirtazapine (Remeron) 7.5 mg BEDTIME ORAL 01/22/20 21:00 02/12/20 22:29 Nitroglycerin (Ntg) 0.4 mg Q5M PRN SL Prn Chest Pain 01/22/20 16:50 02/16/20 11:44 01/23/20 09:16 Ondansetron HCl (Zofran) 4 mg Q6H PRN IVP Nausea & Vomiting 01/22/20 18:00 02/12/20 17:59 01/22/20 23:13 Polyethylene Glycol (Miralax) 17 gm DAILYPRN PRN ORAL Constipation 01/23/20 15:45 02/12/20 15:44 Promethazine HCl/ Codeine (Phenergan with Codeine) 5 ml Q4H PRN ORAL For Cough 01/22/20 19:45 4/15/20 15:44 01/24/20 21:33 Theophylline (Jose-Dur) 100 mg EVERY 12 HOURS ORAL 01/22/20 21:00 02/13/20 08:59 01/25/20 09:03 Kady Salas M.D. Jan 25, 2020 14:25
[2020-01-25 16:00] VITALS: BP 99/61
--- NOTE | 2020-01-25 17:40 | Pulmonology Progress Note ---
Assessment/Plan Problems: (1) Dizziness (2) Acute bronchitis (3) Viral syndrome (4) Mild diastolic dysfunction (5) Cardiac left ventricular ejection fraction greater than 40 percent (6) HTN (hypertension) (7) Hypothyroid (8) Diabetes Assessment/Plan MRI of brain still pending neurology consult still pending pt is still dizzy sputum culture and blood cultures are negative COVID-19 virus negative adjust cardiac meds, sliding scale, BS still high wll reviewed dvt prophylaxis. Subjective ROS Limited/Unobtainable: No Interval Events: still feels dizzy Allergies: Coded Allergies: No Known Allergies (Unverified , 12/08/19) Objective Last 24 Hour Vital Signs Date Time Temp Pulse Resp B/P (MAP) Pulse Ox O2 Delivery O2 Flow Rate FiO2 01/25/20 13:00 91/56 01/25/20 12:00 98.3 67 17 91/56 (68) 97 01/25/20 09:00 Room Air Room Air 01/25/20 09:00 69 107/51 01/25/20 09:00 107/51 01/25/20 08:04 97 Room Air 21 01/25/20 08:04 85 18 97 Room Air 21 01/25/20 08:00 98.7 69 18 107/51 (69) 97 01/25/20 04:00 98.0 71 19 118/60 (79) 97 01/25/20 00:00 98.0 70 19 112/62 (79) 98 01/24/20 21:14 78 110/55 01/24/20 21:00 Room Air Room Air 01/24/20 20:05 83 18 97 Room Air 21 01/24/20 20:05 97 Room Air 21 01/24/20 20:00 97.9 78 20 110/59 (76) 98 01/24/20 17:49 138/86 Intake and Output 01/24/20 01/25/20 19:00 07:00 Intake Total 720 ml Balance 720 ml Intake Oral 720 ml # Voids 3 2 Objective General Appearance: WD/WN HEENT: normocephalic, atraumatic Respiratory/Chest: chest wall non-tender, lungs clear Breasts: no masses Cardiovascular: normal peripheral pulses Abdomen: normal bowel sounds, soft, non tender Genitourinary: normal external genitalia Extremities: no cyanosis Skin: no rash 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 Laboratory Tests 01/25/20 06:45: White Blood Count 7.1, Red Blood Count 4.22L, Hemoglobin 13.4L, Hematocrit 37.8L , Mean Corpuscular Volume 90, Mean Corpuscular Hemoglobin 31.7H, Mean Corpuscular Hemoglobin Concent 35.3, Red Cell Distribution Width 12.0, Platelet Count 296, Mean Platelet Volume 5.7L, Neutrophils (%) (Auto) 59.6, Lymphocytes ( %) (Auto) 26.0, Monocytes (%) (Auto) 8.6, Eosinophils (%) (Auto) 4.7H, Basophils (%) (Auto) 1.1, Sodium Level 135L, Potassium Level 4.1, Chloride Level 99, Carbon Dioxide Level 28, Anion Gap 8, Blood Urea Nitrogen 15, Creatinine 1.0, Estimat Glomerular Filtration Rate > 60, Glucose Level 281H, Calcium Level 9.1 Current Medications Medications (Trade) Dose Ordered Sig/Rodney Route PRN Reason Start Time Stop Time Status Last Admin Dose Admin Acetaminophen (Tylenol) 650 mg Q4H PRN ORAL Fever 01/22/20 17:00 02/12/20 16:59 Aspirin (Ecotrin) 81 mg DAILY ORAL 01/23/20 09:00 02/28/20 08:59 01/25/20 09:03 Bupropion HCl (Wellbutrin SR) 150 mg EVERY 12 HOURS ORAL 01/22/20 21:00 02/13/20 08:59 01/25/20 09:04 Clopidogrel Bisulfate (Plavix) 75 mg DAILY ORAL 01/23/20 09:00 02/13/20 08:59 01/25/20 09:03 Dextrose (Dextrose 50%) 25 ml Q30M PRN IV Hypoglycemia 01/22/20 17:00 04/18/20 18:59 Dextrose (Dextrose 50%) 50 ml Q30M PRN IV Hypoglycemia 01/22/20 17:00 04/18/20 18:59 Gabapentin (Neurontin) 300 mg BEDTIME ORAL 01/22/20 21:00 02/12/20 22:29 01/24/20 21:04 Heparin Sodium (Porcine) (Heparin 5000 units/ml) 5,000 units EVERY 12 HOURS SUBQ 01/22/20 21:00 02/28/20 08:59 01/25/20 08:50 Insulin Aspart (NovoLOG) BEFORE MEALS AND HS SUBQ 01/22/20 21:00 04/18/20 20:59 01/25/20 11:51 Isosorbide Dinitrate (Isordil) 10 mg TID ORAL 01/22/20 18:00 02/13/20 17:59 01/24/20 17:49 Loperamide HCl (Imodium) 4 mg Q6H PRN ORAL DIARRHEA 01/23/20 11:00 02/22/20 10:59 Metoprolol Succinate (Toprol XL) 50 mg Q12HR ORAL 01/22/20 21:00 04/17/20 19:29 01/24/20 21:14 Mirtazapine (Remeron) 7.5 mg BEDTIME ORAL 01/22/20 21:00 02/12/20 22:29 Nitroglycerin (Ntg) 0.4 mg Q5M PRN SL Prn Chest Pain 01/22/20 16:50 02/16/20 11:44 01/23/20 09:16 Ondansetron HCl (Zofran) 4 mg Q6H PRN IVP Nausea & Vomiting 01/22/20 18:00 02/12/20 17:59 01/22/20 23:13 Polyethylene Glycol (Miralax) 17 gm DAILYPRN PRN ORAL Constipation 01/23/20 15:45 02/12/20 15:44 Promethazine HCl/ Codeine (Phenergan with Codeine) 5 ml Q4H PRN ORAL For Cough 01/22/20 19:45 02/12/20 15:44 01/24/20 21:33 Theophylline (Jose-Dur) 100 mg EVERY 12 HOURS ORAL 01/22/20 21:00 02/13/20 08:59 01/25/20 09:03 Richard Hood MD Jan 25, 2020 17:40
[2020-01-25 20:00] VITALS: BP 132/56
[2020-01-25] MEDS: Nitroglycerin Subl 0.4mg tab SL PRN ×3 (22:31→22:49)
[2020-01-26] VITALS (8 sets, daily range): BP systolic 106–153; BP diastolic 61–99
[2020-01-26] MEDS: NovoLOG Insulin Flexpen SUBQ SCH ×4 (06:13→20:38)
[2020-01-26 07:48] LABS: BASOPHILS % (AUTO) 1.1 % (0.0-2.0); EOSINOPHILS % (AUTO) 4.1 % (0.0-3.0); HEMATOCRIT 38.3 % (42.0-52.0); HEMOGLOBIN 13.6 G/DL (14.2-18.0); LYMPHOCYTES % (AUTO) 25.3 % (20.0-45.0); MEAN CORPUSCULAR VOLUME 90 FL (80-99); MONOCYTES % (AUTO) 7.5 % (1.0-10.0); NEUTROPHILS % (AUTO) 62.1 % (45.0-75.0); PLATELET COUNT 302 K/UL (150-450); RED BLOOD COUNT 4.27 M/UL (4.70-6.10); RED CELL DISTRIBUTION WIDTH 11.7 % (11.6-14.8); WHITE BLOOD COUNT 7.9 K/UL (4.8-10.8)
--- NOTE | 2020-01-26 08:14 | General Progress Note ---
Assessment/Plan Problem List: (1) Diabetes ICD Codes: E11.9 - Type 2 diabetes mellitus without complications SNOMED: 82799572 (2) Hypothyroid ICD Codes: E03.9 - Hypothyroidism, unspecified SNOMED: 95311206 (3) Chest pain ICD Codes: R07.9 - Chest pain, unspecified SNOMED: 36913668 Status: stable, progressing Assessment/Plan: o2 pulm tx prn pain control cbc bmp am dc plan snf Subjective Constitutional: Reports: weakness Allergies: Coded Allergies: No Known Allergies (Unverified , 12/08/19) All Systems: reviewed and negative except above Subjective sleepy calm Objective Last 24 Hour Vital Signs Date Time Temp Pulse Resp B/P (MAP) Pulse Ox O2 Delivery O2 Flow Rate FiO2 01/26/20 06:46 96 Room Air 21 01/26/20 06:46 80 18 96 Room Air 21 01/26/20 04:00 98.0 85 16 125/99 (108) 90 01/26/20 00:00 98.2 83 16 123/70 (87) 92 01/25/20 22:49 122/69 01/25/20 22:39 107/64 01/25/20 22:31 137/77 01/25/20 21:00 Room Air Room Air 01/25/20 20:46 80 132/56 01/25/20 20:20 83 18 98 Room Air 21 01/25/20 20:20 98 Room Air 21 01/25/20 20:00 97.8 80 19 132/56 (81) 95 01/25/20 18:00 99/61 01/25/20 16:00 98.0 69 18 99/61 (74) 99 01/25/20 13:00 91/56 01/25/20 12:00 98.3 67 17 91/56 (68) 97 01/25/20 09:00 Room Air Room Air 01/25/20 09:00 69 107/51 01/25/20 09:00 107/51 Intake and Output 01/25/20 01/26/20 19:00 07:00 Intake Total 360 ml 300 ml Output Total 550 ml Balance 360 ml -250 ml Intake Oral 360 ml 300 ml Output Urine Total 550 ml # Voids 2 2 Laboratory Tests 01/26/20 07:20: White Blood Count 7.9, Red Blood Count 4.27L, Hemoglobin 13.6L, Hematocrit 38.3L , Mean Corpuscular Volume 90, Mean Corpuscular Hemoglobin 31.8H, Mean Corpuscular Hemoglobin Concent 35.4, Red Cell Distribution Width 11.7, Platelet Count 302, Mean Platelet Volume 5.6L, Neutrophils (%) (Auto) 62.1, Lymphocytes ( %) (Auto) 25.3, Monocytes (%) (Auto) 7.5, Eosinophils (%) (Auto) 4.1H, Basophils (%) (Auto) 1.1, Sodium Level [Pending], Potassium Level [Pending], Chloride Level [Pending], Carbon Dioxide Level [Pending], Blood Urea Nitrogen [ Pending], Creatinine [Pending], Estimat Glomerular Filtration Rate [Pending], Glucose Level [Pending], Calcium Level [Pending] Height (Feet): 5 Height (Inches): 4.00 Weight (Pounds): 247 General Appearance: lethargic EENT: normal ENT inspection Neck: normal alignment Cardiovascular: normal peripheral pulses, normal rate, regular rhythm Respiratory/Chest: chest wall non-tender, lungs clear, normal breath sounds Abdomen: normal bowel sounds, non tender, soft Extremities: normal inspection Edema: no edema noted Arm (L), no edema noted Arm (R), no edema noted Leg (L), no edema noted Leg (R), no edema noted Pedal (L), no edema noted Pedal (R), no edema noted Generalized Neurologic: motor weakness Skin: normal pigmentation, warm/dry Objective sl chest pain Fermín Griggs DO Jan 26, 2020 08:13
[2020-01-26 08:16] LABS: ANION GAP 8 mmol/L (5-15); BLOOD UREA NITROGEN 18 mg/dL (7-18); CALCIUM 9.4 MG/DL (8.5-10.1); CARBON DIOXIDE 27 MMOL/L (21-32); CHLORIDE 98 MMOL/L (98-107); CREATININE 0.9 MG/DL (0.55-1.30); POTASSIUM 4.1 MMOL/L (3.5-5.1); SODIUM 133 MMOL/L (136-145)
[2020-01-26] MEDS: BuPROPion SR 150mg tab ORAL SCH ×2 (08:32→20:40)
[2020-01-26] MEDS: Theophylline ER 100mg ORAL SCH ×2 (08:33→20:39)
[2020-01-26] MEDS: Aspirin EC 81mg tab ORAL SCH (08:33)
[2020-01-26] MEDS: Heparin 5000 units/ml inj SUBQ SCH ×2 (08:33→20:39)
[2020-01-26] MEDS: Metoprolol Succinate XL 50mg tab ORAL SCH ×2 (08:33→20:40)
[2020-01-26] MEDS: Promethazine/Codeine 5ml UD ORAL PRN (13:18)
--- NOTE | 2020-01-26 14:34 | Cardiology Progress Note ---
Assessment/Plan Assessment/Plan 1. Chronic recurrent chest pain, no evidence of myonecrosis. 2. Coronary artery disease status post coronary artery bypass grafting and previous stenting. 3. Obesity. 4. Possible small vessel coronary disease. 5. Diabetes mellitus. 6. Hypertension. co dizziness but not orthstatic off lasix for opal pst few days bnp normal ekg normal last nite ntg not helpful the pain is possibly radicular bp seem fine hr is ok Subjective Cardiovascular: Reports: chest pain, lightheadedness Respiratory: Denies: shortness of breath Gastrointestinal/Abdominal: Denies: abdominal pain Genitourinary: Denies: burning Subjective persisitent pain in opal left chest and lef arm Objective Last 24 Hour Vital Signs Date Time Temp Pulse Resp B/P (MAP) Pulse Ox O2 Delivery O2 Flow Rate FiO2 01/26/20 12:08 129/84 01/26/20 12:00 98.5 79 18 129/84 (99) 98 01/26/20 09:00 Room Air Room Air 01/26/20 08:33 70 153/91 01/26/20 08:33 153/91 01/26/20 08:00 97.8 70 18 153/91 (111) 95 01/26/20 06:46 96 Room Air 21 01/26/20 06:46 80 18 96 Room Air 21 01/26/20 04:00 98.0 85 16 125/99 (108) 90 01/26/20 00:00 98.2 83 16 123/70 (87) 92 01/25/20 22:49 122/69 01/25/20 22:39 107/64 01/25/20 22:31 137/77 01/25/20 21:00 Room Air Room Air 01/25/20 20:46 80 132/56 01/25/20 20:20 83 18 98 Room Air 21 01/25/20 20:20 98 Room Air 21 01/25/20 20:00 97.8 80 19 132/56 (81) 95 01/25/20 18:00 99/61 01/25/20 16:00 98.0 69 18 99/61 (74) 99 General Appearance: no apparent distress Neck: supple Cardiovascular: normal rate Respiratory/Chest: lungs clear, normal breath sounds Abdomen: normal bowel sounds, non tender, soft Extremities: no swelling Intake and Output 01/25/20 01/26/20 18:59 06:59 Intake Total 360 ml 300 ml Output Total 550 ml Balance 360 ml -250 ml Intake Oral 360 ml 300 ml Output Urine Total 550 ml # Voids 2 2 Laboratory Tests Test 01/26/20 07:20 White Blood Count 7.9 K/UL (4.8-10.8) Red Blood Count 4.27 M/UL (4.70-6.10) L Hemoglobin 13.6 G/DL (14.2-18.0) L Hematocrit 38.3 % (42.0-52.0) L Mean Corpuscular Volume 90 FL (80-99) Mean Corpuscular Hemoglobin 31.8 PG (27.0-31.0) H Mean Corpuscular Hemoglobin Concent 35.4 G/DL (32.0-36.0) Red Cell Distribution Width 11.7 % (11.6-14.8) Platelet Count 302 K/UL (150-450) Mean Platelet Volume 5.6 FL (6.5-10.1) L Neutrophils (%) (Auto) 62.1 % (45.0-75.0) Lymphocytes (%) (Auto) 25.3 % (20.0-45.0) Monocytes (%) (Auto) 7.5 % (1.0-10.0) Eosinophils (%) (Auto) 4.1 % (0.0-3.0) H Basophils (%) (Auto) 1.1 % (0.0-2.0) Sodium Level 133 MMOL/L (136-145) L Potassium Level 4.1 MMOL/L (3.5-5.1) Chloride Level 98 MMOL/L (98-107) Carbon Dioxide Level 27 MMOL/L (21-32) Anion Gap 8 mmol/L (5-15) Blood Urea Nitrogen 18 mg/dL (7-18) Creatinine 0.9 MG/DL (0.55-1.30) Estimat Glomerular Filtration Rate > 60 mL/min (>60) Glucose Level 296 MG/DL (74-106) H Calcium Level 9.4 MG/DL (8.5-10.1) Sarkis Guthrie MD Jan 26, 2020 14:34
--- NOTE | 2020-01-26 17:06 | Pulmonology Progress Note ---
Assessment/Plan Problems: (1) Dizziness (2) Acute bronchitis (3) Viral syndrome (4) Mild diastolic dysfunction (5) Cardiac left ventricular ejection fraction greater than 40 percent (6) HTN (hypertension) (7) Hypothyroid (8) Diabetes Assessment/Plan MRI of brain still pending neurology consult still pending pt is still dizzy sputum culture and blood cultures are negative COVID-19 virus negative adjust cardiac meds, sliding scale, BS still high wll reviewed dvt prophylaxis. Subjective ROS Limited/Unobtainable: No Constitutional: Reports: no symptoms HEENT: Repors: no symptoms Allergies: Coded Allergies: No Known Allergies (Unverified , 12/08/19) Objective Last 24 Hour Vital Signs Date Time Temp Pulse Resp B/P (MAP) Pulse Ox O2 Delivery O2 Flow Rate FiO2 01/26/20 16:00 97.6 86 17 131/80 (97) 99 01/26/20 12:08 129/84 01/26/20 12:00 98.5 79 18 129/84 (99) 98 01/26/20 09:00 Room Air Room Air 01/26/20 08:33 70 153/91 01/26/20 08:33 153/91 01/26/20 08:00 97.8 70 18 153/91 (111) 95 01/26/20 06:46 96 Room Air 21 01/26/20 06:46 80 18 96 Room Air 21 01/26/20 04:00 98.0 85 16 125/99 (108) 90 01/26/20 00:00 98.2 83 16 123/70 (87) 92 01/25/20 22:49 122/69 01/25/20 22:39 107/64 01/25/20 22:31 137/77 01/25/20 21:00 Room Air Room Air 01/25/20 20:46 80 132/56 01/25/20 20:20 83 18 98 Room Air 21 01/25/20 20:20 98 Room Air 21 01/25/20 20:00 97.8 80 19 132/56 (81) 95 01/25/20 18:00 99/61 Intake and Output 01/25/20 01/26/20 19:00 07:00 Intake Total 360 ml 300 ml Output Total 550 ml Balance 360 ml -250 ml Intake Oral 360 ml 300 ml Output Urine Total 550 ml # Voids 2 2 Objective General Appearance: WD/WN HEENT: normocephalic, atraumatic Respiratory/Chest: chest wall non-tender, lungs clear Breasts: no masses Cardiovascular: normal peripheral pulses Abdomen: normal bowel sounds, soft, non tender Genitourinary: normal external genitalia Extremities: no cyanosis Skin: no rash 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 Laboratory Tests 01/26/20 07:20: White Blood Count 7.9, Red Blood Count 4.27L, Hemoglobin 13.6L, Hematocrit 38.3L , Mean Corpuscular Volume 90, Mean Corpuscular Hemoglobin 31.8H, Mean Corpuscular Hemoglobin Concent 35.4, Red Cell Distribution Width 11.7, Platelet Count 302, Mean Platelet Volume 5.6L, Neutrophils (%) (Auto) 62.1, Lymphocytes ( %) (Auto) 25.3, Monocytes (%) (Auto) 7.5, Eosinophils (%) (Auto) 4.1H, Basophils (%) (Auto) 1.1, Sodium Level 133L, Potassium Level 4.1, Chloride Level 98, Carbon Dioxide Level 27, Anion Gap 8, Blood Urea Nitrogen 18, Creatinine 0.9, Estimat Glomerular Filtration Rate > 60, Glucose Level 296H, Calcium Level 9.4 Current Medications Medications (Trade) Dose Ordered Sig/Rodney Route PRN Reason Start Time Stop Time Status Last Admin Dose Admin Acetaminophen (Tylenol) 650 mg Q4H PRN ORAL Mild Pain/Temp > 100.5 01/26/20 01:00 02/12/20 16:59 01/26/20 03:42 Aspirin (Ecotrin) 81 mg DAILY ORAL 01/23/20 09:00 02/28/20 08:59 01/26/20 08:33 Bupropion HCl (Wellbutrin SR) 150 mg EVERY 12 HOURS ORAL 01/22/20 21:00 02/13/20 08:59 01/26/20 08:32 Clopidogrel Bisulfate (Plavix) 75 mg DAILY ORAL 01/23/20 09:00 02/13/20 08:59 01/26/20 08:33 Dextrose (Dextrose 50%) 25 ml Q30M PRN IV Hypoglycemia 01/22/20 17:00 04/18/20 18:59 Dextrose (Dextrose 50%) 50 ml Q30M PRN IV Hypoglycemia 01/22/20 17:00 04/18/20 18:59 Gabapentin (Neurontin) 300 mg BEDTIME ORAL 01/22/20 21:00 02/12/20 22:29 01/25/20 20:46 Heparin Sodium (Porcine) (Heparin 5000 units/ml) 5,000 units EVERY 12 HOURS SUBQ 01/22/20 21:00 02/28/20 08:59 01/26/20 08:33 Insulin Aspart (NovoLOG) BEFORE MEALS AND HS SUBQ 01/22/20 21:00 04/18/20 20:59 01/26/20 11:30 Isosorbide Dinitrate (Isordil) 10 mg TID ORAL 01/22/20 18:00 02/13/20 17:59 01/26/20 12:08 Loperamide HCl (Imodium) 4 mg Q6H PRN ORAL DIARRHEA 01/23/20 11:00 02/22/20 10:59 Metoprolol Succinate (Toprol XL) 50 mg Q12HR ORAL 01/22/20 21:00 04/17/20 19:29 01/26/20 08:33 Mirtazapine (Remeron) 7.5 mg BEDTIME ORAL 01/22/20 21:00 02/12/20 22:29 Nitroglycerin (Ntg) 0.4 mg Q5M PRN SL Prn Chest Pain 01/22/20 16:50 02/16/20 11:44 01/25/20 22:49 Ondansetron HCl (Zofran) 4 mg Q6H PRN IVP Nausea & Vomiting 01/22/20 18:00 02/12/20 17:59 01/22/20 23:13 Polyethylene Glycol (Miralax) 17 gm DAILYPRN PRN ORAL Constipation 01/23/20 15:45 02/12/20 15:44 Promethazine HCl/ Codeine (Phenergan with Codeine) 5 ml Q4H PRN ORAL For Cough 01/22/20 19:45 02/12/20 15:44 01/26/20 13:18 Theophylline (Jose-Dur) 100 mg EVERY 12 HOURS ORAL 01/22/20 21:00 02/13/20 08:59 01/26/20 08:33 Richard Hood MD Jan 26, 2020 17:06
[2020-01-26] MEDS: Nitroglycerin Subl 0.4mg tab SL PRN ×3 (18:25→18:40)
[2020-01-27] MEDS: Nitroglycerin Subl 0.4mg tab SL PRN ×6 (00:09→15:15)
[2020-01-27] MEDS: Morphine Sulfate 2mg/ml Inj(IV/IM USE ONLY) IVP PRN ×6 (00:43→22:53)
[2020-01-27 04:00] VITALS: BP 112/60
[2020-01-27] MEDS: NovoLOG Insulin Flexpen SUBQ SCH ×4 (05:36→20:42)
[2020-01-27 06:42] LABS: BASOPHILS % (AUTO) 1.1 % (0.0-2.0); EOSINOPHILS % (AUTO) 4.2 % (0.0-3.0); HEMATOCRIT 36.4 % (42.0-52.0); HEMOGLOBIN 12.9 G/DL (14.2-18.0); LYMPHOCYTES % (AUTO) 28.8 % (20.0-45.0); MEAN CORPUSCULAR VOLUME 90 FL (80-99); MONOCYTES % (AUTO) 8.1 % (1.0-10.0); NEUTROPHILS % (AUTO) 57.9 % (45.0-75.0); PLATELET COUNT 281 K/UL (150-450); RED BLOOD COUNT 4.05 M/UL (4.70-6.10); RED CELL DISTRIBUTION WIDTH 11.8 % (11.6-14.8); WHITE BLOOD COUNT 8.1 K/UL (4.8-10.8)
[2020-01-27 06:52] LABS: ANION GAP 13 mmol/L (5-15); BLOOD UREA NITROGEN 18 mg/dL (7-18); CARBON DIOXIDE 24 MMOL/L (21-32); CHLORIDE 101 MMOL/L (98-107); CREATININE 0.9 MG/DL (0.55-1.30); POTASSIUM 4.1 MMOL/L (3.5-5.1); SODIUM 138 MMOL/L (136-145)
[2020-01-27 08:00] VITALS: BP 115/68
[2020-01-27] MEDS: Aspirin EC 81mg tab ORAL SCH (08:47)
[2020-01-27] MEDS: Theophylline ER 100mg ORAL SCH ×2 (08:47→20:09)
[2020-01-27] MEDS: BuPROPion SR 150mg tab ORAL SCH ×2 (08:47→20:01)
[2020-01-27] MEDS: Metoprolol Succinate XL 50mg tab ORAL SCH ×2 (08:48→20:09)
[2020-01-27] MEDS: Heparin 5000 units/ml inj SUBQ SCH ×2 (08:49→20:18)
--- NOTE | 2020-01-27 09:15 | General Progress Note ---
Assessment/Plan Problem List: (1) Diabetes ICD Codes: E11.9 - Type 2 diabetes mellitus without complications SNOMED: 03523140 (2) Hypothyroid ICD Codes: E03.9 - Hypothyroidism, unspecified SNOMED: 51271505 (3) Chest pain ICD Codes: R07.9 - Chest pain, unspecified SNOMED: 50539202 Status: stable, progressing Assessment/Plan: o2 pulm tx prn pain control cbc bmp am dc plan snf Subjective Constitutional: Reports: weakness Allergies: Coded Allergies: No Known Allergies (Unverified , 12/08/19) All Systems: reviewed and negative except above Subjective sleepy calm Objective Last 24 Hour Vital Signs Date Time Temp Pulse Resp B/P (MAP) Pulse Ox O2 Delivery O2 Flow Rate FiO2 01/27/20 08:48 84 115/68 01/27/20 08:47 115/68 01/27/20 08:00 97.3 84 20 115/68 (84) 99 01/27/20 04:00 97.8 80 19 112/60 (77) 98 01/27/20 00:23 100/44 01/27/20 00:17 100/45 01/27/20 00:09 103/46 01/26/20 23:29 98.0 74 19 120/64 (82) 96 01/26/20 22:22 84 18 97 Room Air 21 01/26/20 22:22 97 Room Air 21 01/26/20 21:00 Room Air Room Air 01/26/20 20:40 73 118/61 01/26/20 20:00 98.5 73 19 118/61 (80) 94 01/26/20 19:20 98.7 01/26/20 18:40 131/79 01/26/20 18:33 106/63 01/26/20 18:29 98.7 80 17 106/63 (77) 95 01/26/20 18:25 131/80 01/26/20 17:07 131/80 01/26/20 16:00 97.6 86 17 131/80 (97) 99 01/26/20 12:08 129/84 01/26/20 12:00 98.5 79 18 129/84 (99) 98 Intake and Output 01/26/20 01/27/20 19:00 07:00 Intake Total 900 ml Balance 900 ml Other 900 ml # Voids 2 Laboratory Tests 01/27/20 01:05: Troponin I 0.000 01/27/20 05:10: White Blood Count 8.1, Red Blood Count 4.05L, Hemoglobin 12.9L, Hematocrit 36.4L , Mean Corpuscular Volume 90, Mean Corpuscular Hemoglobin 31.9H, Mean Corpuscular Hemoglobin Concent 35.5, Red Cell Distribution Width 11.8, Platelet Count 281, Mean Platelet Volume 5.6L, Neutrophils (%) (Auto) 57.9, Lymphocytes ( %) (Auto) 28.8, Monocytes (%) (Auto) 8.1, Eosinophils (%) (Auto) 4.2H, Basophils (%) (Auto) 1.1, Sodium Level 138, Potassium Level 4.1, Chloride Level 101, Carbon Dioxide Level 24, Anion Gap 13, Blood Urea Nitrogen 18, Creatinine 0.9, Estimat Glomerular Filtration Rate > 60, Glucose Level 312H, Calcium Level 9.0 Height (Feet): 5 Height (Inches): 4.00 Weight (Pounds): 248 General Appearance: lethargic EENT: normal ENT inspection Neck: normal alignment Cardiovascular: normal peripheral pulses, normal rate, regular rhythm Respiratory/Chest: chest wall non-tender, lungs clear, normal breath sounds Abdomen: normal bowel sounds, non tender, soft Extremities: normal inspection Edema: no edema noted Arm (L), no edema noted Arm (R), no edema noted Leg (L), no edema noted Leg (R), no edema noted Pedal (L), no edema noted Pedal (R), no edema noted Generalized Neurologic: motor weakness Skin: normal pigmentation, warm/dry Objective sl chest pain Fermín Griggs DO Jan 27, 2020 09:15
[2020-01-27 12:00] VITALS: BP 120/73
--- NOTE | 2020-01-27 13:57 | Diagnostic Imaging Report ---
Indication: 54-year-old male dizziness vertigo Technique: The head was imaged in a 1.5 Emma magnet. Sequences obtained include sagittal and axial T1 FLAIR, axial T2 fast spin echo with fat saturation, axial T2* GRE, axial T2 FLAIR, diffusion and ADC map. Comparison: None Findings: There is mild prominence of the sulci, ventricles, and basal cisterns consistent with atrophy. Mild, nonspecific T2 hyperintensity noted within white matter. This may be due to chronic small vessel disease. There is no restricted diffusion. Kim-white differentiation is normal. There is no mass effect, midline shift, edema, or hemorrhage. There are no abnormal extra-axial or intra-axial fluid collections. The corpus callosum and sella are unremarkable. The brainstem and cerebellum are unremarkable. Bone marrow signal within the visualized osseous structures appears age appropriate and unremarkable otherwise. There is a moderate degree of mucosal thickening within all of the paranasal sinuses. In addition there is patchy T2 hyperintense signal indicative of fluid within several mastoid air cells bilaterally worse on the right. Impression: Bilateral mastoiditis and pansinusitis. No acute intracranial findings. Mild atrophy and evidence of chronic small vessel disease involving white matter tracts.
--- NOTE | 2020-01-27 15:29 | Pulmonology Progress Note ---
Assessment/Plan Problems: (1) Dizziness (2) Acute bronchitis (3) Viral syndrome (4) Mild diastolic dysfunction (5) Cardiac left ventricular ejection fraction greater than 40 percent (6) HTN (hypertension) (7) Hypothyroid (8) Diabetes Assessment/Plan MRI of brain Bilateral mastoiditis and pansinusitis. Mild atrophy and evidence of chronic small vessel disease involving white matter tracts. neurology consult still pending pt is still dizzy sputum culture and blood cultures are negative COVID-19 virus negative adjust cardiac meds, sliding scale, BS still high wll reviewed dvt prophylaxis. Subjective ROS Limited/Unobtainable: No Constitutional: Reports: no symptoms HEENT: Repors: no symptoms Allergies: Coded Allergies: No Known Allergies (Unverified , 12/08/19) Objective Last 24 Hour Vital Signs Date Time Temp Pulse Resp B/P (MAP) Pulse Ox O2 Delivery O2 Flow Rate FiO2 01/27/20 15:15 153/76 01/27/20 15:07 116/72 01/27/20 15:00 140/85 01/27/20 14:38 97.5 01/27/20 12:11 120/73 01/27/20 12:00 97.5 86 20 120/73 (89) 98 01/27/20 09:00 Room Air Room Air 01/27/20 08:48 84 115/68 01/27/20 08:47 115/68 01/27/20 08:00 97.3 84 20 115/68 (84) 99 01/27/20 04:00 97.8 80 19 112/60 (77) 98 01/27/20 00:23 100/44 01/27/20 00:17 100/45 01/27/20 00:09 103/46 01/26/20 23:29 98.0 74 19 120/64 (82) 96 01/26/20 22:22 84 18 97 Room Air 21 01/26/20 22:22 97 Room Air 21 01/26/20 21:00 Room Air Room Air 01/26/20 20:40 73 118/61 01/26/20 20:00 98.5 73 19 118/61 (80) 94 01/26/20 19:20 98.7 01/26/20 18:40 131/79 01/26/20 18:33 106/63 01/26/20 18:29 98.7 80 17 106/63 (77) 95 01/26/20 18:25 131/80 01/26/20 17:07 131/80 01/26/20 16:00 97.6 86 17 131/80 (97) 99 Intake and Output 01/26/20 01/27/20 19:00 07:00 Intake Total 900 ml Balance 900 ml Other 900 ml # Voids 2 Objective General Appearance: WD/WN HEENT: normocephalic, atraumatic Respiratory/Chest: chest wall non-tender, lungs clear Breasts: no masses Cardiovascular: normal peripheral pulses Abdomen: normal bowel sounds, soft, non tender Genitourinary: normal external genitalia Extremities: no cyanosis Skin: no rash 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 Laboratory Tests 01/27/20 01:05: Troponin I 0.000 01/27/20 05:10: White Blood Count 8.1, Red Blood Count 4.05L, Hemoglobin 12.9L, Hematocrit 36.4L , Mean Corpuscular Volume 90, Mean Corpuscular Hemoglobin 31.9H, Mean Corpuscular Hemoglobin Concent 35.5, Red Cell Distribution Width 11.8, Platelet Count 281, Mean Platelet Volume 5.6L, Neutrophils (%) (Auto) 57.9, Lymphocytes ( %) (Auto) 28.8, Monocytes (%) (Auto) 8.1, Eosinophils (%) (Auto) 4.2H, Basophils (%) (Auto) 1.1, Sodium Level 138, Potassium Level 4.1, Chloride Level 101, Carbon Dioxide Level 24, Anion Gap 13, Blood Urea Nitrogen 18, Creatinine 0.9, Estimat Glomerular Filtration Rate > 60, Glucose Level 312H, Calcium Level 9.0 Current Medications Medications (Trade) Dose Ordered Sig/Rodney Route PRN Reason Start Time Stop Time Status Last Admin Dose Admin Acetaminophen (Tylenol) 650 mg Q4H PRN ORAL Mild Pain/Temp > 100.5 01/26/20 01:00 02/12/20 16:59 01/26/20 18:50 Aspirin (Ecotrin) 81 mg DAILY ORAL 01/23/20 09:00 02/28/20 08:59 01/27/20 08:47 Bupropion HCl (Wellbutrin SR) 150 mg EVERY 12 HOURS ORAL 01/22/20 21:00 02/13/20 08:59 01/27/20 08:47 Clopidogrel Bisulfate (Plavix) 75 mg DAILY ORAL 01/23/20 09:00 02/13/20 08:59 01/27/20 08:47 Dextrose (Dextrose 50%) 25 ml Q30M PRN IV Hypoglycemia 01/22/20 17:00 04/18/20 18:59 Dextrose (Dextrose 50%) 50 ml Q30M PRN IV Hypoglycemia 01/22/20 17:00 04/18/20 18:59 Gabapentin (Neurontin) 300 mg BEDTIME ORAL 01/22/20 21:00 02/12/20 22:29 01/26/20 20:39 Heparin Sodium (Porcine) (Heparin 5000 units/ml) 5,000 units EVERY 12 HOURS SUBQ 01/22/20 21:00 02/28/20 08:59 01/27/20 08:49 Insulin Aspart (NovoLOG) BEFORE MEALS AND HS SUBQ 01/22/20 21:00 04/18/20 20:59 01/27/20 12:10 Isosorbide Dinitrate (Isordil) 10 mg TID ORAL 01/22/20 18:00 02/13/20 17:59 01/27/20 12:11 Loperamide HCl (Imodium) 4 mg Q6H PRN ORAL DIARRHEA 01/23/20 11:00 02/22/20 10:59 Metoprolol Succinate (Toprol XL) 50 mg Q12HR ORAL 01/22/20 21:00 04/17/20 19:29 01/27/20 08:48 Mirtazapine (Remeron) 7.5 mg BEDTIME ORAL 01/22/20 21:00 02/12/20 22:29 Morphine Sulfate (Morphine Sulfate) 2 mg Q4H PRN IVP Severe Pain (Pain Scale 7-10) 01/27/20 00:30 02/03/20 00:29 01/27/20 14:08 Nitroglycerin (Ntg) 0.4 mg Q5M PRN SL Prn Chest Pain 01/22/20 16:50 02/16/20 11:44 01/27/20 15:15 Ondansetron HCl (Zofran) 4 mg Q6H PRN IVP Nausea & Vomiting 01/22/20 18:00 02/12/20 17:59 01/27/20 12:33 Polyethylene Glycol (Miralax) 17 gm DAILYPRN PRN ORAL Constipation 01/23/20 15:45 02/12/20 15:44 Promethazine HCl/ Codeine (Phenergan with Codeine) 5 ml Q4H PRN ORAL For Cough 01/22/20 19:45 02/12/20 15:44 01/26/20 13:18 Theophylline (Jose-Dur) 100 mg EVERY 12 HOURS ORAL 01/22/20 21:00 02/13/20 08:59 01/27/20 08:47 Richard Hood MD Jan 27, 2020 15:29
[2020-01-27 16:00] VITALS: BP 153/76
--- NOTE | 2020-01-27 18:04 | Infectious Diseases Prog Note ---
Assessment/Plan Assessment/Plan ASSESSMENT: The patient is a 54-year-old male with: Shortness of breath Afebrile Elevated white blood cells Leukopenia Covid-19 : Negative History of CHF. istory of CAD History of hypothyroidism. History of hypertension. History of chronic obstructive pulmonary disease. Liver cirrhosis. History of drug abuse in the past. GERD PLAN: monitor pt offof AB R x 02/19 Sp doxycycline and Rocephin day # / Monitor CBC. Monitor BMP Monitor chest x-ray. ELBERT RN Subjective Allergies: Coded Allergies: No Known Allergies (Unverified , 12/08/19) Subjective Afebrile. RA. No leukocytosis. Reports chest pain. No cough or sob. Objective Vital Signs Last 24 Hour Vital Signs Date Time Temp Pulse Resp B/P (MAP) Pulse Ox O2 Delivery O2 Flow Rate FiO2 01/27/20 17:21 153/76 01/27/20 16:00 97.0 84 20 153/76 (101) 96 01/27/20 15:15 153/76 01/27/20 15:07 116/72 01/27/20 15:00 140/85 01/27/20 14:38 97.5 01/27/20 12:11 120/73 01/27/20 12:00 97.5 86 20 120/73 (89) 98 01/27/20 09:00 Room Air Room Air 01/27/20 08:48 84 115/68 01/27/20 08:47 115/68 01/27/20 08:00 97.3 84 20 115/68 (84) 99 01/27/20 04:00 97.8 80 19 112/60 (77) 98 01/27/20 00:23 100/44 01/27/20 00:17 100/45 01/27/20 00:09 103/46 01/26/20 23:29 98.0 74 19 120/64 (82) 96 01/26/20 22:22 84 18 97 Room Air 21 01/26/20 22:22 97 Room Air 21 01/26/20 21:00 Room Air Room Air 01/26/20 20:40 73 118/61 01/26/20 20:00 98.5 73 19 118/61 (80) 94 01/26/20 19:20 98.7 3/29/20 18:40 131/79 01/26/20 18:33 106/63 01/26/20 18:29 98.7 80 17 106/63 (77) 95 01/26/20 18:25 131/80 Height (Feet): 5 Height (Inches): 4.00 Weight (Pounds): 248 Objective Gen: NAD. obese HEENT: anicteric sclera CV: RRR. no rubs Resp: RRR. no wheezes or crackles. unlabored Abd: soft. no TTP Neuro: AAO. interactive Laboratory Tests Test 01/27/20 01:05 01/27/20 05:10 Troponin I 0.000 ng/mL (0.000-0.056) White Blood Count 8.1 K/UL (4.8-10.8) Red Blood Count 4.05 M/UL (4.70-6.10) L Hemoglobin 12.9 G/DL (14.2-18.0) L Hematocrit 36.4 % (42.0-52.0) L Mean Corpuscular Volume 90 FL (80-99) Mean Corpuscular Hemoglobin 31.9 PG (27.0-31.0) H Mean Corpuscular Hemoglobin Concent 35.5 G/DL (32.0-36.0) Red Cell Distribution Width 11.8 % (11.6-14.8) Platelet Count 281 K/UL (150-450) Mean Platelet Volume 5.6 FL (6.5-10.1) L Neutrophils (%) (Auto) 57.9 % (45.0-75.0) Lymphocytes (%) (Auto) 28.8 % (20.0-45.0) Monocytes (%) (Auto) 8.1 % (1.0-10.0) Eosinophils (%) (Auto) 4.2 % (0.0-3.0) H Basophils (%) (Auto) 1.1 % (0.0-2.0) Sodium Level 138 MMOL/L (136-145) Potassium Level 4.1 MMOL/L (3.5-5.1) Chloride Level 101 MMOL/L (98-107) Carbon Dioxide Level 24 MMOL/L (21-32) Anion Gap 13 mmol/L (5-15) Blood Urea Nitrogen 18 mg/dL (7-18) Creatinine 0.9 MG/DL (0.55-1.30) Estimat Glomerular Filtration Rate > 60 mL/min (>60) Glucose Level 312 MG/DL (74-106) H Calcium Level 9.0 MG/DL (8.5-10.1) Current Medications Medications (Trade) Dose Ordered Sig/Rodney Route PRN Reason Start Time Stop Time Status Last Admin Dose Admin Acetaminophen (Tylenol) 650 mg Q4H PRN ORAL Mild Pain/Temp > 100.5 01/26/20 01:00 02/12/20 16:59 01/26/20 18:50 Aspirin (Ecotrin) 81 mg DAILY ORAL 01/23/20 09:00 02/28/20 08:59 01/27/20 08:47 Bupropion HCl (Wellbutrin SR) 150 mg EVERY 12 HOURS ORAL 01/22/20 21:00 02/13/20 08:59 01/27/20 08:47 Clopidogrel Bisulfate (Plavix) 75 mg DAILY ORAL 01/23/20 09:00 02/13/20 08:59 01/27/20 08:47 Dextrose (Dextrose 50%) 25 ml Q30M PRN IV Hypoglycemia 01/22/20 17:00 04/18/20 18:59 Dextrose (Dextrose 50%) 50 ml Q30M PRN IV Hypoglycemia 01/22/20 17:00 04/18/20 18:59 Gabapentin (Neurontin) 300 mg BEDTIME ORAL 01/22/20 21:00 02/12/20 22:29 01/26/20 20:39 Heparin Sodium (Porcine) (Heparin 5000 units/ml) 5,000 units EVERY 12 HOURS SUBQ 01/22/20 21:00 02/28/20 08:59 01/27/20 08:49 Insulin Aspart (NovoLOG) BEFORE MEALS AND HS SUBQ 01/22/20 21:00 04/18/20 20:59 01/27/20 17:21 Isosorbide Dinitrate (Isordil) 10 mg TID ORAL 01/22/20 18:00 02/13/20 17:59 01/27/20 17:21 Loperamide HCl (Imodium) 4 mg Q6H PRN ORAL DIARRHEA 01/23/20 11:00 02/22/20 10:59 Metoprolol Succinate (Toprol XL) 50 mg Q12HR ORAL 01/22/20:00 04/17/20 19:29 01/27/20 08:48 Mirtazapine (Remeron) 7.5 mg BEDTIME ORAL 01/22/20 21:00 02/12/20 22:29 Morphine Sulfate (Morphine Sulfate) 2 mg Q4H PRN IVP Severe Pain (Pain Scale 7-10) 01/27/20 00:30 02/03/20 00:29 01/27/20 14:08 Nitroglycerin (Ntg) 0.4 mg Q5M PRN SL Prn Chest Pain 01/22/20 16:50 02/16/20 11:44 01/27/20 15:15 Ondansetron HCl (Zofran) 4 mg Q6H PRN IVP Nausea & Vomiting 01/22/20 18:00 02/12/20 17:59 01/27/20 12:33 Polyethylene Glycol (Miralax) 17 gm DAILYPRN PRN ORAL Constipation 01/23/20 15:45 02/12/20 15:44 Promethazine HCl/ Codeine (Phenergan with Codeine) 5 ml Q4H PRN ORAL For Cough 01/22/20 19:45 02/12/20 15:44 01/26/20 13:18 Theophylline (Jose-Dur) 100 mg EVERY 12 HOURS ORAL 01/22/20 21:00 02/13/20 08:59 01/27/20 08:47 Kym Hernandez MD Jan 27, 2020 18:04
[2020-01-27 20:00] VITALS: BP 132/69
[2020-01-28] VITALS: BP 112/55
[2020-01-28] MEDS: Morphine Sulfate 2mg/ml Inj(IV/IM USE ONLY) IVP PRN ×5 (03:07→23:44)
[2020-01-28 04:00] VITALS: BP 128/72
[2020-01-28] MEDS: NovoLOG Insulin Flexpen SUBQ SCH ×4 (06:09→21:11)
[2020-01-28 07:33] LABS: BASOPHILS % (AUTO) 1.4 % (0.0-2.0); EOSINOPHILS % (AUTO) 5.2 % (0.0-3.0); HEMATOCRIT 37.7 % (42.0-52.0); HEMOGLOBIN 14.5 G/DL (14.2-18.0); LYMPHOCYTES % (AUTO) 29.2 % (20.0-45.0); MEAN CORPUSCULAR VOLUME 90 FL (80-99); MONOCYTES % (AUTO) 5.4 % (1.0-10.0); NEUTROPHILS % (AUTO) 58.7 % (45.0-75.0); PLATELET COUNT 282 K/UL (150-450); RED BLOOD COUNT 4.21 M/UL (4.70-6.10); RED CELL DISTRIBUTION WIDTH 12.1 % (11.6-14.8); WHITE BLOOD COUNT 8.3 K/UL (4.8-10.8)
[2020-01-28 07:50] LABS: ANION GAP 10 mmol/L (5-15); BLOOD UREA NITROGEN 16 mg/dL (7-18); CALCIUM 9.2 MG/DL (8.5-10.1); CARBON DIOXIDE 25 MMOL/L (21-32); CHLORIDE 98 MMOL/L (98-107); POTASSIUM 4.1 MMOL/L (3.5-5.1); SODIUM 133 MMOL/L (136-145)
[2020-01-28 08:00] VITALS: BP 120/60
[2020-01-28] MEDS: BuPROPion SR 150mg tab ORAL SCH ×2 (08:59→20:59)
[2020-01-28] MEDS: Aspirin EC 81mg tab ORAL SCH (09:00)
[2020-01-28] MEDS: Metoprolol Succinate XL 50mg tab ORAL SCH ×2 (09:00→21:04)
[2020-01-28] MEDS: Theophylline ER 100mg ORAL SCH ×2 (09:00→21:04)
[2020-01-28] MEDS: Heparin 5000 units/ml inj SUBQ SCH ×2 (09:02→21:08)
[2020-01-28 12:00] VITALS: BP 126/69
--- NOTE | 2020-01-28 12:44 | General Progress Note ---
Assessment/Plan Problem List: (1) Diabetes ICD Codes: E11.9 - Type 2 diabetes mellitus without complications SNOMED: 46735277 (2) Hypothyroid ICD Codes: E03.9 - Hypothyroidism, unspecified SNOMED: 17336309 (3) Chest pain ICD Codes: R07.9 - Chest pain, unspecified SNOMED: 08267897 Status: stable, progressing Assessment/Plan: o2 pulm tx prn pain control cbc bmp am dc plan snf Subjective Constitutional: Reports: weakness Allergies: Coded Allergies: No Known Allergies (Unverified , 12/08/19) All Systems: reviewed and negative except above Subjective sleepy calm Objective Last 24 Hour Vital Signs Date Time Temp Pulse Resp B/P (MAP) Pulse Ox O2 Delivery O2 Flow Rate FiO2 01/28/20 12:04 120/60 01/28/20 09:00 Room Air Room Air 01/28/20 09:00 73 120/60 01/28/20 08:59 120/60 01/28/20 08:00 98.4 73 20 120/60 (80) 97 01/28/20 04:00 98.2 68 20 128/72 (90) 93 01/28/20 00:00 98.2 70 18 112/55 (74) 96 01/27/20 21:00 Room Air Room Air 01/27/20 20:09 80 132/69 01/27/20 20:03 97 Room Air 21 01/27/20 20:00 98.2 80 20 132/69 (90) 93 01/27/20 18:44 97.0 01/27/20 17:21 153/76 01/27/20 16:00 97.0 84 20 153/76 (101) 96 01/27/20 15:15 153/76 01/27/20 15:07 116/72 01/27/20 15:00 140/85 Intake and Output 01/27/20 01/28/20 19:00 07:00 Intake Total 1200 ml 400 ml Balance 1200 ml 400 ml Intake Oral 1200 ml Other 400 ml # Voids 8 3 Laboratory Tests 01/28/20 07:18: White Blood Count 8.3, Red Blood Count 4.21L, Hemoglobin 14.5, Hematocrit 37.7L , Mean Corpuscular Volume 90, Mean Corpuscular Hemoglobin 34.5H, Mean Corpuscular Hemoglobin Concent 38.5H, Red Cell Distribution Width 12.1, Platelet Count 282, Mean Platelet Volume 5.5L, Neutrophils (%) (Auto) 58.7, Lymphocytes (%) (Auto) 29.2, Monocytes (%) (Auto) 5.4, Eosinophils (%) (Auto) 5.2H, Basophils (%) (Auto) 1.4, Sodium Level 133L, Potassium Level 4.1, Chloride Level 98, Carbon Dioxide Level 25, Anion Gap 10, Blood Urea Nitrogen 16 , Creatinine 1.0, Estimat Glomerular Filtration Rate > 60, Glucose Level 308H, Calcium Level 9.2 Height (Feet): 5 Height (Inches): 4.00 Weight (Pounds): 249 General Appearance: lethargic EENT: normal ENT inspection Neck: normal alignment Cardiovascular: normal peripheral pulses, normal rate, regular rhythm Respiratory/Chest: chest wall non-tender, lungs clear, normal breath sounds Abdomen: normal bowel sounds, non tender, soft Extremities: normal inspection Edema: no edema noted Arm (L), no edema noted Arm (R), no edema noted Leg (L), no edema noted Leg (R), no edema noted Pedal (L), no edema noted Pedal (R), no edema noted Generalized Neurologic: motor weakness Skin: normal pigmentation, warm/dry Objective sl chest pain Fermín Griggs DO Jan 28, 2020 12:44
--- NOTE | 2020-01-28 13:13 | Pulmonology Progress Note ---
Assessment/Plan Problems: (1) Dizziness (2) Acute bronchitis (3) Viral syndrome (4) Mild diastolic dysfunction (5) Cardiac left ventricular ejection fraction greater than 40 percent (6) HTN (hypertension) (7) Hypothyroid (8) Diabetes Assessment/Plan MRI of brain Bilateral mastoiditis and pansinusitis. Mild atrophy and evidence of chronic small vessel disease involving white matter tracts. neurology consult still pending pt is still dizzy sputum culture and blood cultures are negative COVID-19 virus negative adjust cardiac meds, sliding scale, BS still high wll reviewed dvt prophylaxis. Subjective ROS Limited/Unobtainable: No HEENT: Repors: no symptoms Allergies: Coded Allergies: No Known Allergies (Unverified , 12/08/19) Objective Last 24 Hour Vital Signs Date Time Temp Pulse Resp B/P (MAP) Pulse Ox O2 Delivery O2 Flow Rate FiO2 01/28/20 12:04 120/60 01/28/20 12:00 98.2 77 19 126/69 (88) 98 01/28/20 09:00 Room Air Room Air 01/28/20 09:00 73 120/60 01/28/20 08:59 120/60 01/28/20 08:00 98.4 73 20 120/60 (80) 97 01/28/20 04:00 98.2 68 20 128/72 (90) 93 01/28/20 00:00 98.2 70 18 112/55 (74) 96 01/27/20 21:00 Room Air Room Air 01/27/20 20:09 80 132/69 01/27/20 20:03 97 Room Air 21 01/27/20 20:00 98.2 80 20 132/69 (90) 93 01/27/20 18:44 97.0 01/27/20 17:21 153/76 01/27/20 16:00 97.0 84 20 153/76 (101) 96 01/27/20 15:15 153/76 01/27/20 15:07 116/72 01/27/20 15:00 140/85 Intake and Output 01/27/20 01/28/20 19:00 07:00 Intake Total 1200 ml 400 ml Balance 1200 ml 400 ml Intake Oral 1200 ml Other 400 ml # Voids 8 3 Objective General Appearance: WD/WN HEENT: normocephalic, atraumatic Respiratory/Chest: chest wall non-tender, lungs clear Breasts: no masses Cardiovascular: normal peripheral pulses Abdomen: normal bowel sounds, soft, non tender Genitourinary: normal external genitalia Extremities: no cyanosis Skin: no rash 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 Laboratory Tests 01/28/20 07:18: White Blood Count 8.3, Red Blood Count 4.21L, Hemoglobin 14.5, Hematocrit 37.7L , Mean Corpuscular Volume 90, Mean Corpuscular Hemoglobin 34.5H, Mean Corpuscular Hemoglobin Concent 38.5H, Red Cell Distribution Width 12.1, Platelet Count 282, Mean Platelet Volume 5.5L, Neutrophils (%) (Auto) 58.7, Lymphocytes (%) (Auto) 29.2, Monocytes (%) (Auto) 5.4, Eosinophils (%) (Auto) 5.2H, Basophils (%) (Auto) 1.4, Sodium Level 133L, Potassium Level 4.1, Chloride Level 98, Carbon Dioxide Level 25, Anion Gap 10, Blood Urea Nitrogen 16 , Creatinine 1.0, Estimat Glomerular Filtration Rate > 60, Glucose Level 308H, Calcium Level 9.2 Current Medications Medications (Trade) Dose Ordered Sig/Rodney Route PRN Reason Start Time Stop Time Status Last Admin Dose Admin Acetaminophen (Tylenol) 650 mg Q4H PRN ORAL Mild Pain/Temp > 100.5 01/26/20 01:00 02/12/20 16:59 01/26/20 18:50 Aspirin (Ecotrin) 81 mg DAILY ORAL 01/23/20 09:00 02/28/20 08:59 01/28/20 09:00 Bupropion HCl (Wellbutrin SR) 150 mg EVERY 12 HOURS ORAL 01/22/20 21:00 02/13/20 08:59 01/28/20 08:59 Clopidogrel Bisulfate (Plavix) 75 mg DAILY ORAL 01/23/20 09:00 02/13/20 08:59 01/28/20 08:59 Dextrose (Dextrose 50%) 25 ml Q30M PRN IV Hypoglycemia 01/22/20 17:00 04/18/20 18:59 Dextrose (Dextrose 50%) 50 ml Q30M PRN IV Hypoglycemia 01/22/20 17:00 04/18/20 18:59 Gabapentin (Neurontin) 300 mg BEDTIME ORAL 01/22/20 21:00 02/12/20 22:29 01/27/20 20:09 Heparin Sodium (Porcine) (Heparin 5000 units/ml) 5,000 units EVERY 12 HOURS SUBQ 01/22/20 21:00 02/28/20 08:59 01/28/20 09:02 Insulin Aspart (NovoLOG) BEFORE MEALS AND HS SUBQ 01/22/20 21:00 04/18/20 20:59 01/28/20 12:06 Isosorbide Dinitrate (Isordil) 10 mg TID ORAL 01/22/20 18:00 02/13/20 17:59 01/28/20 12:04 Loperamide HCl (Imodium) 4 mg Q6H PRN ORAL DIARRHEA 01/23/20 11:00 02/22/20 10:59 Metoprolol Succinate (Toprol XL) 50 mg Q12HR ORAL 01/22/20 21:00 04/17/20 19:29 01/28/20 09:00 Mirtazapine (Remeron) 7.5 mg BEDTIME ORAL 01/22/20 21:00 02/12/20 22:29 Morphine Sulfate (Morphine Sulfate) 2 mg Q4H PRN IVP Severe Pain (Pain Scale 7-10) 01/27/20 00:30 02/03/20 00:29 01/28/20 09:01 Nitroglycerin (Ntg) 0.4 mg Q5M PRN SL Prn Chest Pain 01/22/20 16:50 02/16/20 11:44 01/27/20 15:15 Ondansetron HCl (Zofran) 4 mg Q6H PRN IVP Nausea & Vomiting 01/22/20 18:00 02/12/20 17:59 01/28/20 09:00 Polyethylene Glycol (Miralax) 17 gm DAILYPRN PRN ORAL Constipation 01/23/20 15:45 02/12/20 15:44 Promethazine HCl/ Codeine (Phenergan with Codeine) 5 ml Q4H PRN ORAL For Cough 01/22/20 19:45 02/12/20 15:44 01/26/20 13:18 Theophylline (Jose-Dur) 100 mg EVERY 12 HOURS ORAL 01/22/20 21:00 02/13/20 08:59 01/28/20 09:00 Richard Hood MD Jan 28, 2020 13:13
[2020-01-28 16:00] VITALS: BP 127/63
--- NOTE | 2020-01-28 16:25 | Infectious Diseases Prog Note ---
Assessment/Plan Assessment/Plan ASSESSMENT: The patient is a 54-year-old male with: Shortness of breath Afebrile Elevated white blood cells Leukopenia Covid-19 : Negative History of CHF. istory of CAD History of hypothyroidism. History of hypertension. History of chronic obstructive pulmonary disease. Liver cirrhosis. History of drug abuse in the past. GERD PLAN: monitor pt off of AB R x 02/19 Sp doxycycline and Rocephin day # 03/03 Monitor CBC. Monitor BMP Monitor chest x-ray. ELBERT RN Subjective Allergies: Coded Allergies: No Known Allergies (Unverified , 12/08/19) Subjective Afebrile. RA. No leukocytosis. Objective Vital Signs Last 24 Hour Vital Signs Date Time Temp Pulse Resp B/P (MAP) Pulse Ox O2 Delivery O2 Flow Rate FiO2 01/28/20 16:00 97.0 71 18 127/63 (84) 96 01/28/20 12:04 120/60 01/28/20 12:00 98.2 77 19 126/69 (88) 98 01/28/20 09:00 Room Air Room Air 01/28/20 09:00 73 120/60 01/28/20 08:59 120/60 01/28/20 08:00 98.4 73 20 120/60 (80) 97 01/28/20 04:00 98.2 68 20 128/72 (90) 93 01/28/20 00:00 98.2 70 18 112/55 (74) 96 01/27/20 21:00 Room Air Room Air 01/27/20 20:09 80 132/69 01/27/20 20:03 97 Room Air 21 01/27/20 20:00 98.2 80 20 132/69 (90) 93 01/27/20 18:44 97.0 01/27/20 17:21 153/76 Height (Feet): 5 Height (Inches): 4.00 Weight (Pounds): 249 Objective Gen: NAD. obese HEENT: anicteric sclera CV: RRR. no rubs Resp: RRR. no wheezes or crackles. unlabored Abd: soft. no TTP. nondistended. Neuro: AAO. interactive Laboratory Tests Test 01/28/20 07:18 White Blood Count 8.3 K/UL (4.8-10.8) Red Blood Count 4.21 M/UL (4.70-6.10) L Hemoglobin 14.5 G/DL (14.2-18.0) Hematocrit 37.7 % (42.0-52.0) L Mean Corpuscular Volume 90 FL (80-99) Mean Corpuscular Hemoglobin 34.5 PG (27.0-31.0) H Mean Corpuscular Hemoglobin Concent 38.5 G/DL (32.0-36.0) H Red Cell Distribution Width 12.1 % (11.6-14.8) Platelet Count 282 K/UL (150-450) Mean Platelet Volume 5.5 FL (6.5-10.1) L Neutrophils (%) (Auto) 58.7 % (45.0-75.0) Lymphocytes (%) (Auto) 29.2 % (20.0-45.0) Monocytes (%) (Auto) 5.4 % (1.0-10.0) Eosinophils (%) (Auto) 5.2 % (0.0-3.0) H Basophils (%) (Auto) 1.4 % (0.0-2.0) Sodium Level 133 MMOL/L (136-145) L Potassium Level 4.1 MMOL/L (3.5-5.1) Chloride Level 98 MMOL/L (98-107) Carbon Dioxide Level 25 MMOL/L (21-32) Anion Gap 10 mmol/L (5-15) Blood Urea Nitrogen 16 mg/dL (7-18) Creatinine 1.0 MG/DL (0.55-1.30) Estimat Glomerular Filtration Rate > 60 mL/min (>60) Glucose Level 308 MG/DL (74-106) H Calcium Level 9.2 MG/DL (8.5-10.1) Current Medications Medications (Trade) Dose Ordered Sig/Rodney Route PRN Reason Start Time Stop Time Status Last Admin Dose Admin Acetaminophen (Tylenol) 650 mg Q4H PRN ORAL Mild Pain/Temp > 100.5 01/26/20 01:00 02/12/20 16:59 01/26/20 18:50 Aspirin (Ecotrin) 81 mg DAILY ORAL 01/23/20 09:00 02/28/20 08:59 01/28/20 09:00 Bupropion HCl (Wellbutrin SR) 150 mg EVERY 12 HOURS ORAL 01/22/20 21:00 02/13/20 08:59 01/28/20 08:59 Clopidogrel Bisulfate (Plavix) 75 mg DAILY ORAL 01/23/20 09:00 02/13/20 08:59 01/28/20 08:59 Dextrose (Dextrose 50%) 25 ml Q30M PRN IV Hypoglycemia 01/22/20 17:00 04/18/20 18:59 Dextrose (Dextrose 50%) 50 ml Q30M PRN IV Hypoglycemia 01/22/20 17:00 04/18/20 18:59 Gabapentin (Neurontin) 300 mg BEDTIME ORAL 01/22/20 21:00 02/12/20 22:29 01/27/20 20:09 Heparin Sodium (Porcine) (Heparin 5000 units/ml) 5,000 units EVERY 12 HOURS SUBQ 01/22/20 21:00 02/28/20 08:59 01/28/20 09:02 Insulin Aspart (NovoLOG) BEFORE MEALS AND HS SUBQ 01/22/20 21:00 04/18/20 20:59 01/28/20 12:06 Isosorbide Dinitrate (Isordil) 10 mg TID ORAL 01/22/20 18:00 02/13/20 17:59 01/28/20 12:04 Loperamide HCl (Imodium) 4 mg Q6H PRN ORAL DIARRHEA 01/23/20 11:00 02/22/20 10:59 Metoprolol Succinate (Toprol XL) 50 mg Q12HR ORAL 01/22/20 21:00 04/17/20 19:29 01/28/20 09:00 Mirtazapine (Remeron) 7.5 mg BEDTIME ORAL 01/22/20 21:00 02/12/20 22:29 Morphine Sulfate (Morphine Sulfate) 2 mg Q4H PRN IVP Severe Pain (Pain Scale 7-10) 01/27/20 00:30 02/03/20 00:29 01/28/20 15:06 Nitroglycerin (Ntg) 0.4 mg Q5M PRN SL Prn Chest Pain 01/22/20 16:50 02/16/20 11:44 01/27/20 15:15 Ondansetron HCl (Zofran) 4 mg Q6H PRN IVP Nausea & Vomiting 01/22/20 18:00 4/15/20 17:59 01/28/20 09:00 Polyethylene Glycol (Miralax) 17 gm DAILYPRN PRN ORAL Constipation 01/23/20 15:45 02/12/20 15:44 Promethazine HCl/ Codeine (Phenergan with Codeine) 5 ml Q4H PRN ORAL For Cough 01/22/20 19:45 02/12/20 15:44 01/26/20 13:18 Theophylline (Jose-Dur) 100 mg EVERY 12 HOURS ORAL 01/22/20 21:00 02/13/20 08:59 01/28/20 09:00 Kym Hernandez MD Jan 28, 2020 16:25
--- NOTE | 2020-01-28 16:31 | Cardiology Progress Note ---
Assessment/Plan Assessment/Plan 1. Chronic recurrent chest pain, no evidence of myonecrosis. 2. Coronary artery disease status post coronary artery bypass grafting and previous stenting. 3. Obesity. 4. Possible small vessel coronary disease. 5. Diabetes mellitus. 6. Hypertension. co dizziness but not orthstatic off lasix for opal pst few days bnp normal ekg normal last nite ntg not helpful the pain is possibly radicular bp seem fine hr is ok mri showed pro sinusitis may be vertigo related awit neuro input was nto orthostatic when checked 2 dyas ago i was ccled again lst ntie about this cp that has been constant and per rn pt was uncomfortable i gave him morphine cannot take norco due to abd discomfort the say will tray Motrin i have aked him to used Motrin first he was agreeable Subjective Cardiovascular: Reports: chest pain - constant with radiation to the left arm , other - dizziness Respiratory: Denies: shortness of breath Gastrointestinal/Abdominal: Denies: abdominal pain Genitourinary: Denies: discharge Objective Last 24 Hour Vital Signs Date Time Temp Pulse Resp B/P (MAP) Pulse Ox O2 Delivery O2 Flow Rate FiO2 01/28/20 16:00 97.0 71 18 127/63 (84) 96 01/28/20 12:04 120/60 01/28/20 12:00 98.2 77 19 126/69 (88) 98 01/28/20 09:00 Room Air Room Air 01/28/20 09:00 73 120/60 01/28/20 08:59 120/60 01/28/20 08:00 98.4 73 20 120/60 (80) 97 01/28/20 04:00 98.2 68 20 128/72 (90) 93 01/28/20 00:00 98.2 70 18 112/55 (74) 96 01/27/20 21:00 Room Air Room Air 01/27/20 20:09 80 132/69 01/27/20 20:03 97 Room Air 21 01/27/20 20:00 98.2 80 20 132/69 (90) 93 01/27/20 18:44 97.0 01/27/20 17:21 153/76 General Appearance: no apparent distress, alert, obese Cardiovascular: normal rate Respiratory/Chest: lungs clear Abdomen: non tender, soft Extremities: no swelling Intake and Output 01/27/20 01/28/20 19:00 07:00 Intake Total 1200 ml 400 ml Balance 1200 ml 400 ml Intake Oral 1200 ml Other 400 ml # Voids 8 3 Laboratory Tests Test 01/28/20 07:18 White Blood Count 8.3 K/UL (4.8-10.8) Red Blood Count 4.21 M/UL (4.70-6.10) L Hemoglobin 14.5 G/DL (14.2-18.0) Hematocrit 37.7 % (42.0-52.0) L Mean Corpuscular Volume 90 FL (80-99) Mean Corpuscular Hemoglobin 34.5 PG (27.0-31.0) H Mean Corpuscular Hemoglobin Concent 38.5 G/DL (32.0-36.0) H Red Cell Distribution Width 12.1 % (11.6-14.8) Platelet Count 282 K/UL (150-450) Mean Platelet Volume 5.5 FL (6.5-10.1) L Neutrophils (%) (Auto) 58.7 % (45.0-75.0) Lymphocytes (%) (Auto) 29.2 % (20.0-45.0) Monocytes (%) (Auto) 5.4 % (1.0-10.0) Eosinophils (%) (Auto) 5.2 % (0.0-3.0) H Basophils (%) (Auto) 1.4 % (0.0-2.0) Sodium Level 133 MMOL/L (136-145) L Potassium Level 4.1 MMOL/L (3.5-5.1) Chloride Level 98 MMOL/L (98-107) Carbon Dioxide Level 25 MMOL/L (21-32) Anion Gap 10 mmol/L (5-15) Blood Urea Nitrogen 16 mg/dL (7-18) Creatinine 1.0 MG/DL (0.55-1.30) Estimat Glomerular Filtration Rate > 60 mL/min (>60) Glucose Level 308 MG/DL (74-106) H Calcium Level 9.2 MG/DL (8.5-10.1) Sarkis Guthrie MD Jan 28, 2020 16:31
[2020-01-28 20:00] VITALS: BP 129/69
[2020-01-29] VITALS: BP 119/59
[2020-01-29] MEDS: Morphine Sulfate 2mg/ml Inj(IV/IM USE ONLY) IVP PRN ×5 (03:47→22:13)
[2020-01-29 04:00] VITALS: BP 103/51
[2020-01-29] MEDS: NovoLOG Insulin Flexpen SUBQ SCH ×4 (05:53→22:18)
[2020-01-29 06:39] LABS: BASOPHILS % (AUTO) 0.9 % (0.0-2.0); EOSINOPHILS % (AUTO) 5.2 % (0.0-3.0); HEMATOCRIT 36.9 % (42.0-52.0); HEMOGLOBIN 13.1 G/DL (14.2-18.0); LYMPHOCYTES % (AUTO) 27.3 % (20.0-45.0); MEAN CORPUSCULAR VOLUME 90 FL (80-99); MONOCYTES % (AUTO) 8.7 % (1.0-10.0); NEUTROPHILS % (AUTO) 57.9 % (45.0-75.0); PLATELET COUNT 280 K/UL (150-450); RED BLOOD COUNT 4.08 M/UL (4.70-6.10); RED CELL DISTRIBUTION WIDTH 12.1 % (11.6-14.8); WHITE BLOOD COUNT 7.5 K/UL (4.8-10.8)
[2020-01-29 07:13] LABS: ANION GAP 12 mmol/L (5-15); BLOOD UREA NITROGEN 14 mg/dL (7-18); CARBON DIOXIDE 25 MMOL/L (21-32); CHLORIDE 100 MMOL/L (98-107); POTASSIUM 4.2 MMOL/L (3.5-5.1); SODIUM 137 MMOL/L (136-145)
[2020-01-29 08:00] VITALS: BP 122/61
[2020-01-29] MEDS: BuPROPion SR 150mg tab ORAL SCH ×2 (08:19→21:00)
[2020-01-29] MEDS: Aspirin EC 81mg tab ORAL SCH (08:19)
[2020-01-29] MEDS: Theophylline ER 100mg ORAL SCH ×2 (08:19→22:12)
[2020-01-29] MEDS: Metoprolol Succinate XL 50mg tab ORAL SCH ×2 (08:19→22:12)
[2020-01-29] MEDS: Heparin 5000 units/ml inj SUBQ SCH ×2 (08:20→22:15)
--- NOTE | 2020-01-29 08:53 | General Progress Note ---
Assessment/Plan Problem List: (1) Diabetes ICD Codes: E11.9 - Type 2 diabetes mellitus without complications SNOMED: 77007376 (2) Hypothyroid ICD Codes: E03.9 - Hypothyroidism, unspecified SNOMED: 17824523 (3) Chest pain ICD Codes: R07.9 - Chest pain, unspecified SNOMED: 57232295 Status: stable, progressing Assessment/Plan: o2 pulm tx prn pain control cbc bmp am dc plan snf Subjective Constitutional: Reports: weakness Allergies: Coded Allergies: No Known Allergies (Unverified , 12/08/19) All Systems: reviewed and negative except above Subjective sleepy calm Objective Last 24 Hour Vital Signs Date Time Temp Pulse Resp B/P (MAP) Pulse Ox O2 Delivery O2 Flow Rate FiO2 01/29/20 08:19 61 122/61 01/29/20 08:19 122/61 01/29/20 08:00 98.0 61 18 122/61 (81) 93 01/29/20 04:00 98.4 65 18 103/51 (68) 93 01/29/20 00:00 98.3 69 18 119/59 (79) 98 01/28/20 21:04 75 129/69 01/28/20 21:00 Room Air Room Air 01/28/20 20:00 98.1 75 129/69 (89) 01/28/20 17:08 127/63 01/28/20 16:00 97.0 71 18 127/63 (84) 96 01/28/20 12:04 120/60 01/28/20 12:00 98.2 77 19 126/69 (88) 98 01/28/20 09:00 Room Air Room Air 01/28/20 09:00 73 120/60 01/28/20 08:59 120/60 Intake and Output 01/28/20 01/29/20 18:59 06:59 Intake Total 1200 ml 1500 ml Balance 1200 ml 1500 ml Intake Oral 1200 ml Other 1500 ml # Voids 10 5 Laboratory Tests 01/29/20 06:10: White Blood Count 7.5, Red Blood Count 4.08L, Hemoglobin 13.1L, Hematocrit 36.9L , Mean Corpuscular Volume 90, Mean Corpuscular Hemoglobin 32.1H, Mean Corpuscular Hemoglobin Concent 35.5, Red Cell Distribution Width 12.1, Platelet Count 280, Mean Platelet Volume 6.0L, Neutrophils (%) (Auto) 57.9, Lymphocytes ( %) (Auto) 27.3, Monocytes (%) (Auto) 8.7, Eosinophils (%) (Auto) 5.2H, Basophils (%) (Auto) 0.9, Sodium Level 137, Potassium Level 4.2, Chloride Level 100, Carbon Dioxide Level 25, Anion Gap 12, Blood Urea Nitrogen 14, Creatinine 1.0, Estimat Glomerular Filtration Rate > 60, Glucose Level 374H, Calcium Level 9.0 Height (Feet): 5 Height (Inches): 4.00 Weight (Pounds): 249 General Appearance: lethargic EENT: normal ENT inspection Neck: normal alignment Cardiovascular: normal peripheral pulses, normal rate, regular rhythm Respiratory/Chest: chest wall non-tender, lungs clear, normal breath sounds Abdomen: normal bowel sounds, non tender, soft Extremities: normal inspection Edema: no edema noted Arm (L), no edema noted Arm (R), no edema noted Leg (L), no edema noted Leg (R), no edema noted Pedal (L), no edema noted Pedal (R), no edema noted Generalized Neurologic: motor weakness Skin: normal pigmentation, warm/dry Objective sl chest pain Fermín Griggs DO Jan 29, 2020 08:53
[2020-01-29 12:00] VITALS: BP 11/93
--- NOTE | 2020-01-29 13:49 | Pulmonology Progress Note ---
Assessment/Plan Problems: (1) Dizziness (2) Acute bronchitis (3) Viral syndrome (4) Mild diastolic dysfunction (5) Cardiac left ventricular ejection fraction greater than 40 percent (6) HTN (hypertension) (7) Hypothyroid (8) Diabetes Assessment/Plan MRI of brain Bilateral mastoiditis and pansinusitis. Mild atrophy and evidence of chronic small vessel disease involving white matter tracts. neurology consult still pending pt is still dizzy sputum culture and blood cultures are negative COVID-19 virus negative Pain consult requested wll reviewed dvt prophylaxis. Subjective ROS Limited/Unobtainable: No Interval Events: unable to get neuro to see the pt, Allergies: Coded Allergies: No Known Allergies (Unverified , 12/08/19) Objective Last 24 Hour Vital Signs Date Time Temp Pulse Resp B/P (MAP) Pulse Ox O2 Delivery O2 Flow Rate FiO2 01/29/20 12:15 119/73 01/29/20 12:00 98.1 68 20 11/93 (66) 94 01/29/20 09:00 Room Air Room Air 01/29/20 08:19 61 122/61 01/29/20 08:19 122/61 01/29/20 08:00 98.0 61 18 122/61 (81) 93 01/29/20 04:00 98.4 65 18 103/51 (68) 93 01/29/20 00:00 98.3 69 18 119/59 (79) 98 01/28/20 21:04 75 129/69 01/28/20 21:00 Room Air Room Air 01/28/20 20:00 98.1 75 129/69 (89) 01/28/20 17:08 127/63 01/28/20 16:00 97.0 71 18 127/63 (84) 96 Intake and Output 01/28/20 01/29/20 19:00 07:00 Intake Total 1200 ml 1500 ml Balance 1200 ml 1500 ml Intake Oral 1200 ml Other 1500 ml # Voids 10 5 Objective General Appearance: WD/WN HEENT: normocephalic, atraumatic Respiratory/Chest: chest wall non-tender, lungs clear Breasts: no masses Cardiovascular: normal peripheral pulses Abdomen: normal bowel sounds, soft, non tender Genitourinary: normal external genitalia Extremities: no cyanosis Skin: no rash 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 Laboratory Tests 01/29/20 06:10: White Blood Count 7.5, Red Blood Count 4.08L, Hemoglobin 13.1L, Hematocrit 36.9L , Mean Corpuscular Volume 90, Mean Corpuscular Hemoglobin 32.1H, Mean Corpuscular Hemoglobin Concent 35.5, Red Cell Distribution Width 12.1, Platelet Count 280, Mean Platelet Volume 6.0L, Neutrophils (%) (Auto) 57.9, Lymphocytes ( %) (Auto) 27.3, Monocytes (%) (Auto) 8.7, Eosinophils (%) (Auto) 5.2H, Basophils (%) (Auto) 0.9, Sodium Level 137, Potassium Level 4.2, Chloride Level 100, Carbon Dioxide Level 25, Anion Gap 12, Blood Urea Nitrogen 14, Creatinine 1.0, Estimat Glomerular Filtration Rate > 60, Glucose Level 374H, Calcium Level 9.0 Current Medications Medications (Trade) Dose Ordered Sig/Rodney Route PRN Reason Start Time Stop Time Status Last Admin Dose Admin Acetaminophen (Tylenol) 650 mg Q4H PRN ORAL Mild Pain/Temp > 100.5 01/26/20 01:00 02/12/20 16:59 01/26/20 18:50 Aspirin (Ecotrin) 81 mg DAILY ORAL 01/23/20 09:00 02/28/20 08:59 01/29/20 08:19 Bupropion HCl (Wellbutrin SR) 150 mg EVERY 12 HOURS ORAL 01/22/20 21:00 02/13/20 08:59 01/29/20 08:19 Clopidogrel Bisulfate (Plavix) 75 mg DAILY ORAL 01/23/20 09:00 02/13/20 08:59 01/29/20 08:19 Dextrose (Dextrose 50%) 25 ml Q30M PRN IV Hypoglycemia 01/22/20 17:00 04/18/20 18:59 Dextrose (Dextrose 50%) 50 ml Q30M PRN IV Hypoglycemia 01/22/20 17:00 04/18/20 18:59 Gabapentin (Neurontin) 300 mg BEDTIME ORAL 01/22/20 21:00 02/12/20 22:29 01/28/20 21:03 Heparin Sodium (Porcine) (Heparin 5000 units/ml) 5,000 units EVERY 12 HOURS SUBQ 01/22/20 21:00 02/28/20 08:59 01/29/20 08:20 Ibuprofen (Motrin) 600 mg TIDPRN PRN ORAL chest pain not relievd by nt 01/28/20 17:00 02/27/20 16:59 Insulin Aspart (NovoLOG) BEFORE MEALS AND HS SUBQ 01/22/20 21:00 04/18/20 20:59 01/29/20 12:10 Isosorbide Dinitrate (Isordil) 10 mg TID ORAL 01/22/20 18:00 02/13/20 17:59 01/29/20 12:15 Loperamide HCl (Imodium) 4 mg Q6H PRN ORAL DIARRHEA 01/23/20 11:00 02/22/20 10:59 Metoprolol Succinate (Toprol XL) 50 mg Q12HR ORAL 01/22/20 21:00 04/17/20 19:29 01/29/20 08:19 Mirtazapine (Remeron) 7.5 mg BEDTIME ORAL 01/22/20 21:00 02/12/20 22:29 Morphine Sulfate (Morphine Sulfate) 2 mg Q4H PRN IVP Severe Pain (Pain Scale 7-10) 01/27/20 00:30 02/03/20 00:29 01/29/20 12:41 Nitroglycerin (Ntg) 0.4 mg Q5M PRN SL Prn Chest Pain 01/22/20 16:50 02/16/20 11:44 01/27/20 15:15 Ondansetron HCl (Zofran) 4 mg Q6H PRN IVP Nausea & Vomiting 01/22/20 18:00 02/12/20 17:59 01/29/20 03:47 Polyethylene Glycol (Miralax) 17 gm DAILYPRN PRN ORAL Constipation 01/23/20 15:45 02/12/20 15:44 Promethazine HCl/ Codeine (Phenergan with Codeine) 5 ml Q4H PRN ORAL For Cough 01/22/20 19:45 02/12/20 15:44 01/26/20 13:18 Theophylline (Jose-Dur) 100 mg EVERY 12 HOURS ORAL 01/22/20 21:00 02/13/20 08:59 01/29/20 08:19 Richard Hood MD Jan 29, 2020 13:49
[2020-01-29 16:00] VITALS: BP 143/76
--- NOTE | 2020-01-29 16:16 | Infectious Diseases Prog Note ---
Assessment/Plan Assessment/Plan ASSESSMENT: The patient is a 54-year-old male with: Shortness of breath Afebrile Elevated white blood cells Leukopenia Covid-19 : Negative History of CHF. istory of CAD History of hypothyroidism. History of hypertension. History of chronic obstructive pulmonary disease. Liver cirrhosis. History of drug abuse in the past. GERD PLAN: off of AB R x 02/19 Sp doxycycline and Rocephin day # 03/03 Monitor CBC. Monitor BMP Monitor chest x-ray. ELBERT RN Subjective Allergies: Coded Allergies: No Known Allergies (Unverified , 12/08/19) Subjective Afebrile. RA. continues to report chest pain no cough or sob Objective Vital Signs Last 24 Hour Vital Signs Date Time Temp Pulse Resp B/P (MAP) Pulse Ox O2 Delivery O2 Flow Rate FiO2 01/29/20 12:15 119/73 01/29/20 12:00 98.1 68 20 11/93 (66) 94 01/29/20 09:00 Room Air Room Air 01/29/20 08:19 61 122/61 01/29/20 08:19 122/61 01/29/20 08:00 98.0 61 18 122/61 (81) 93 01/29/20 04:00 98.4 65 18 103/51 (68) 93 01/29/20 00:00 98.3 69 18 119/59 (79) 98 01/28/20 21:04 75 129/69 01/28/20 21:00 Room Air Room Air 01/28/20 20:00 98.1 75 129/69 (89) 01/28/20 17:08 127/63 Height (Feet): 5 Height (Inches): 4.00 Weight (Pounds): 251 Objective Gen: NAD. well nourished. well hydrated. HEENT: anicteric sclera CV: RRR. no rubs Resp: RRR. no wheezes or crackles. unlabored Abd: soft. no TTP. nondistended. Neuro: AAO. interactive Laboratory Tests Test 01/29/20 06:10 White Blood Count 7.5 K/UL (4.8-10.8) Red Blood Count 4.08 M/UL (4.70-6.10) L Hemoglobin 13.1 G/DL (14.2-18.0) L Hematocrit 36.9 % (42.0-52.0) L Mean Corpuscular Volume 90 FL (80-99) Mean Corpuscular Hemoglobin 32.1 PG (27.0-31.0) H Mean Corpuscular Hemoglobin Concent 35.5 G/DL (32.0-36.0) Red Cell Distribution Width 12.1 % (11.6-14.8) Platelet Count 280 K/UL (150-450) Mean Platelet Volume 6.0 FL (6.5-10.1) L Neutrophils (%) (Auto) 57.9 % (45.0-75.0) Lymphocytes (%) (Auto) 27.3 % (20.0-45.0) Monocytes (%) (Auto) 8.7 % (1.0-10.0) Eosinophils (%) (Auto) 5.2 % (0.0-3.0) H Basophils (%) (Auto) 0.9 % (0.0-2.0) Sodium Level 137 MMOL/L (136-145) Potassium Level 4.2 MMOL/L (3.5-5.1) Chloride Level 100 MMOL/L (98-107) Carbon Dioxide Level 25 MMOL/L (21-32) Anion Gap 12 mmol/L (5-15) Blood Urea Nitrogen 14 mg/dL (7-18) Creatinine 1.0 MG/DL (0.55-1.30) Estimat Glomerular Filtration Rate > 60 mL/min (>60) Glucose Level 374 MG/DL (74-106) H Calcium Level 9.0 MG/DL (8.5-10.1) Current Medications Medications (Trade) Dose Ordered Sig/Rodney Route PRN Reason Start Time Stop Time Status Last Admin Dose Admin Acetaminophen (Tylenol) 650 mg Q4H PRN ORAL Mild Pain/Temp > 100.5 01/26/20 01:00 02/12/20 16:59 01/26/20 18:50 Aspirin (Ecotrin) 81 mg DAILY ORAL 01/23/20 09:00 02/28/20 08:59 01/29/20 08:19 Bupropion HCl (Wellbutrin SR) 150 mg EVERY 12 HOURS ORAL 01/22/20 21:00 02/13/20 08:59 01/29/20 08:19 Clopidogrel Bisulfate (Plavix) 75 mg DAILY ORAL 01/23/20 09:00 02/13/20 08:59 01/29/20 08:19 Dextrose (Dextrose 50%) 25 ml Q30M PRN IV Hypoglycemia 01/22/20 17:00 04/18/20 18:59 Dextrose (Dextrose 50%) 50 ml Q30M PRN IV Hypoglycemia 01/22/20 17:00 04/18/20 18:59 Gabapentin (Neurontin) 300 mg BEDTIME ORAL 01/22/20 21:00 02/12/20 22:29 01/28/20 21:03 Heparin Sodium (Porcine) (Heparin 5000 units/ml) 5,000 units EVERY 12 HOURS SUBQ 01/22/20 21:00 02/28/20 08:59 01/29/20 08:20 Ibuprofen (Motrin) 600 mg TIDPRN PRN ORAL chest pain not relievd by nt 01/28/20 17:00 02/27/20 16:59 Insulin Aspart (NovoLOG) BEFORE MEALS AND HS SUBQ 01/22/20 21:00 04/18/20 20:59 01/29/20 12:10 Isosorbide Dinitrate (Isordil) 10 mg TID ORAL 01/22/20 18:00 02/13/20 17:59 01/29/20 12:15 Loperamide HCl (Imodium) 4 mg Q6H PRN ORAL DIARRHEA 01/23/20 11:00 02/22/20 10:59 Metoprolol Succinate (Toprol XL) 50 mg Q12HR ORAL 01/22/20 21:00 04/17/20 19:29 01/29/20 08:19 Mirtazapine (Remeron) 7.5 mg BEDTIME ORAL 01/22/20 21:00 02/12/20 22:29 Morphine Sulfate (Morphine Sulfate) 2 mg Q4H PRN IVP Severe Pain (Pain Scale 7-10) 01/27/20 00:30 02/03/20 00:29 01/29/20 12:41 Nitroglycerin (Ntg) 0.4 mg Q5M PRN SL Prn Chest Pain 01/22/20 16:50 02/16/20 11:44 01/27/20 15:15 Ondansetron HCl (Zofran) 4 mg Q6H PRN IVP Nausea & Vomiting 01/22/20 18:00 02/12/20 17:59 01/29/20 03:47 Polyethylene Glycol (Miralax) 17 gm DAILYPRN PRN ORAL Constipation 01/23/20 15:45 02/12/20 15:44 Promethazine HCl/ Codeine (Phenergan with Codeine) 5 ml Q4H PRN ORAL For Cough 01/22/20 19:45 02/12/20 15:44 01/26/20 13:18 Theophylline (Jose-Dur) 100 mg EVERY 12 HOURS ORAL 01/22/20 21:00 02/13/20 08:59 01/29/20 08:19 Kym Hernandez MD Jan 29, 2020 16:16
[2020-01-29 20:00] VITALS: BP 133/87
[2020-01-30] VITALS: BP 112/59
[2020-01-30] MEDS: Morphine Sulfate 2mg/ml Inj(IV/IM USE ONLY) IVP PRN ×4 (03:15→21:18)
[2020-01-30 04:00] VITALS: BP 123/58
[2020-01-30] MEDS: NovoLOG Insulin Flexpen SUBQ SCH ×4 (06:01→21:25)
[2020-01-30 06:11] LABS: BASOPHILS % (AUTO) 1.3 % (0.0-2.0); EOSINOPHILS % (AUTO) 5.3 % (0.0-3.0); HEMATOCRIT 37.8 % (42.0-52.0); HEMOGLOBIN 13.2 G/DL (14.2-18.0); LYMPHOCYTES % (AUTO) 28.1 % (20.0-45.0); MEAN CORPUSCULAR VOLUME 90 FL (80-99); MONOCYTES % (AUTO) 9.1 % (1.0-10.0); NEUTROPHILS % (AUTO) 56.2 % (45.0-75.0); PLATELET COUNT 273 K/UL (150-450); WHITE BLOOD COUNT 7.8 K/UL (4.8-10.8)
[2020-01-30 06:28] LABS: ANION GAP 9 mmol/L (5-15); BLOOD UREA NITROGEN 15 mg/dL (7-18); CALCIUM 9.2 MG/DL (8.5-10.1); CARBON DIOXIDE 26 MMOL/L (21-32); CHLORIDE 99 MMOL/L (98-107); POTASSIUM 4.2 MMOL/L (3.5-5.1); SODIUM 134 MMOL/L (136-145)
[2020-01-30 08:00] VITALS: BP 116/74
[2020-01-30] MEDS: Theophylline ER 100mg ORAL SCH ×2 (08:43→21:16)
[2020-01-30] MEDS: Aspirin EC 81mg tab ORAL SCH (08:43)
[2020-01-30] MEDS: Metoprolol Succinate XL 50mg tab ORAL SCH ×2 (08:44→21:16)
[2020-01-30] MEDS: Heparin 5000 units/ml inj SUBQ SCH ×2 (08:46→21:24)
[2020-01-30] MEDS: BuPROPion SR 150mg tab ORAL SCH ×2 (08:46→21:00)
--- NOTE | 2020-01-30 11:17 | Consultation ---
History of Present Illness General Date patient seen: Jan 30, 2020 Time patient seen: 11:00 - AM Chief Complaint: BACK PAIN Referring physician: Anson Reason for Consultation: Pain management Present Illness HPI Patient is a known patient from previous admissions and has been c/o chronic pain in his back Started on Morphine 2mg IV Q4H PRN which patient reports has been helping him tolerate the pain. No new complaints at this time. Allergies: Coded Allergies: No Known Allergies (Unverified , 12/08/19) Medication History Scheduled Aspirin* (Aspir 81*), 81 MG ORAL DAILY, (Reported) Atorvastatin Calcium* (Atorvastatin Calcium*), 80 MG ORAL BEDTIME, (Reported) Bupropion Sr* (Bupropion Sr*), 150 MG ORAL EVERY 12 HOURS, (Reported) Clopidogrel* (Clopidogrel*), 75 MG ORAL DAILY, (Reported) Furosemide* (Lasix*), 40 MG ORAL DAILY, (Reported) Gabapentin* (Gabapentin*), 300 MG ORAL BEDTIME, (Reported) Gabapentin* (Neurontin*), 300 MG ORAL THREE TIMES A DAY, (Reported) Insulin Glargine (Lantus), 0 SUBQ BEDTIME, (Reported) Levothyroxine Sodium (Levothyroxine Sodium), 50 MCG ORAL DAILY, (Reported) Metoprolol Tartrate* (Metoprolol Tartrate*), 25 MG ORAL EVERY 12 HOURS, ( Reported) Mirtazapine* (Mirtazapine*), 7.5 MG ORAL BEDTIME, (Reported) Nateglinide* (Starlix*), 120 MG ORAL THREE TIMES A DAY, (Reported) Pantoprazole* (Pantoprazole*), 40 MG ORAL DAILY, (Reported) Scheduled PRN Acetaminophen* (Acetaminophen 325MG Tablet*), 650 MG ORAL Q4H PRN for Pain Scale (3-5), (Reported) Morphine HCl (Morphine Sulfate ER), 7.5 MG ORAL Q6H PRN for For Pain, (Reported) Zolpidem Tartrate* (Ambien*), 5 MG ORAL BEDTIME PRN for Insomnia, (Reported) Miscellaneous Medications Insulin Aspart (Novolog Flexpen), (Reported) Isosorbide Mononitrate (Isosorbide Mononitrate Er), 60 MG PO, (Reported) Patient History Healthcare decision maker jose elias cortez Resuscitation status Full Code Advanced Directive on File Past Medical/Surgical History Past Medical/Surgical History: (1) Acute exacerbation of CHF (congestive heart failure) (2) Diabetes (3) HTN (hypertension) (4) Hypothyroid Review of Systems ROS Narrative Constitutional: Reports: no symptoms HEENT: Reports: no symptoms Cardiovascular: Reports: no symptoms Respiratory: Reports: no symptoms Gastrointestinal/Abdominal: Reports: no symptoms Genitourinary: Reports: no symptoms Neurologic/Psychiatric: Reports: no symptoms Endocrine: Reports: no symptoms Hematologic/Lymphatic: Reports: no symptoms Physical Exam Physical Exam Narrative General Appearance: no apparent distress, alert EENT: PERRL/EOMI, normal ENT inspection Neck: non-tender, normal alignment Cardiovascular: normal rate, regular rhythm Respiratory/Chest: lungs clear, normal breath sounds Abdomen: non tender, soft Extremities: non-tender Edema: no edema noted Generalized Neurologic: alert, oriented x 3 Skin: warm/dry Last 24 Hour Vital Signs Date Time Temp Pulse Resp B/P (MAP) Pulse Ox O2 Delivery O2 Flow Rate FiO2 01/30/20 09:16 97.7 01/30/20 09:00 Room Air Room Air 01/30/20 08:44 104 116/74 01/30/20 08:43 116/74 01/30/20 08:00 97.7 104 19 116/74 (88) 96 01/30/20 04:00 98.0 67 20 123/58 (79) 91 01/30/20 00:00 98.1 75 18 112/59 (76) 93 01/29/20 22:12 76 133/87 01/29/20 21:00 Room Air Room Air 01/29/20 20:00 98.8 76 22 133/87 (102) 93 01/29/20 17:36 143/76 01/29/20 16:00 98.5 79 20 143/76 (98) 94 01/29/20 12:15 119/73 01/29/20 12:00 98.1 68 20 11/ (66) 94 Intake and Output 01/29/20 01/30/20 19:00 07:00 Intake Total 840 ml 1000 ml Balance 840 ml 1000 ml Intake Oral 840 ml 1000 ml # Voids 3 5 Laboratory Tests Test 01/30/20 05:32 White Blood Count 7.8 K/UL (4.8-10.8) Red Blood Count 4.20 M/UL (4.70-6.10) L Hemoglobin 13.2 G/DL (14.2-18.0) L Hematocrit 37.8 % (42.0-52.0) L Mean Corpuscular Volume 90 FL (80-99) Mean Corpuscular Hemoglobin 31.4 PG (27.0-31.0) H Mean Corpuscular Hemoglobin Concent 34.9 G/DL (32.0-36.0) Red Cell Distribution Width 12.0 % (11.6-14.8) Platelet Count 273 K/UL (150-450) Mean Platelet Volume 6.1 FL (6.5-10.1) L Neutrophils (%) (Auto) 56.2 % (45.0-75.0) Lymphocytes (%) (Auto) 28.1 % (20.0-45.0) Monocytes (%) (Auto) 9.1 % (1.0-10.0) Eosinophils (%) (Auto) 5.3 % (0.0-3.0) H Basophils (%) (Auto) 1.3 % (0.0-2.0) Sodium Level 134 MMOL/L (136-145) L Potassium Level 4.2 MMOL/L (3.5-5.1) Chloride Level 99 MMOL/L (98-107) Carbon Dioxide Level 26 MMOL/L (21-32) Anion Gap 9 mmol/L (5-15) Blood Urea Nitrogen 15 mg/dL (7-18) Creatinine 1.0 MG/DL (0.55-1.30) Estimat Glomerular Filtration Rate > 60 mL/min (>60) Glucose Level 346 MG/DL (74-106) H Calcium Level 9.2 MG/DL (8.5-10.1) Height (Feet): 5 Height (Inches): 4.00 Weight (Pounds): 251 Medications Current Medications Medications (Trade) Dose Ordered Sig/Rodney Route PRN Reason Start Time Stop Time Status Last Admin Dose Admin Acetaminophen (Tylenol) 650 mg Q4H PRN ORAL Mild Pain/Temp > 100.5 01/26/20 01:00 02/12/20 16:59 01/26/20 18:50 Aspirin (Ecotrin) 81 mg DAILY ORAL 01/23/20 09:00 02/28/20 08:59 01/30/20 08:43 Bupropion HCl (Wellbutrin SR) 150 mg EVERY 12 HOURS ORAL 01/22/20 21:00 02/13/20 08:59 01/30/20 08:46 Clopidogrel Bisulfate (Plavix) 75 mg DAILY ORAL 01/23/20 09:00 02/13/20 08:59 01/30/20 08:44 Dextrose (Dextrose 50%) 25 ml Q30M PRN IV Hypoglycemia 01/22/20 17:00 04/18/20 18:59 Dextrose (Dextrose 50%) 50 ml Q30M PRN IV Hypoglycemia 01/22/20 17:00 04/18/20 18:59 Gabapentin (Neurontin) 300 mg BEDTIME ORAL 01/22/20 21:00 02/12/20 22:29 01/29/20 22:11 Heparin Sodium (Porcine) (Heparin 5000 units/ml) 5,000 units EVERY 12 HOURS SUBQ 01/22/20 21:00 02/28/20 08:59 01/30/20 08:46 Ibuprofen (Motrin) 600 mg TIDPRN PRN ORAL chest pain not relievd by nt 01/28/20 17:00 02/27/20 16:59 Insulin Aspart (NovoLOG) BEFORE MEALS AND HS SUBQ 01/22/20 21:00 04/18/20 20:59 01/30/20 06:01 Isosorbide Dinitrate (Isordil) 10 mg TID ORAL 01/22/20 18:00 02/13/20 17:59 01/30/20 08:43 Loperamide HCl (Imodium) 4 mg Q6H PRN ORAL DIARRHEA 01/23/20 11:00 02/22/20 10:59 Metoprolol Succinate (Toprol XL) 50 mg Q12HR ORAL 01/22/20 21:00 04/17/20 19:29 01/30/20 08:44 Mirtazapine (Remeron) 7.5 mg BEDTIME ORAL 01/22/20 21:00 02/12/20 22:29 Morphine Sulfate (Morphine Sulfate) 2 mg Q4H PRN IVP Severe Pain (Pain Scale 7-10) 01/27/20 00:30 02/03/20 00:29 01/30/20 08:46 Nitroglycerin (Ntg) 0.4 mg Q5M PRN SL Prn Chest Pain 01/22/20 16:50 02/16/20 11:44 01/27/20 15:15 Ondansetron HCl (Zofran) 4 mg Q6H PRN IVP Nausea & Vomiting 01/22/20 18:00 02/12/20 17:59 01/29/20 22:47 Polyethylene Glycol (Miralax) 17 gm DAILYPRN PRN ORAL Constipation 01/23/20 15:45 02/12/20 15:44 Promethazine HCl/ Codeine (Phenergan with Codeine) 5 ml Q4H PRN ORAL For Cough 01/22/20 19:45 02/12/20 15:44 01/26/20 13:18 Theophylline (Jose-Dur) 100 mg EVERY 12 HOURS ORAL 01/22/20 21:00 02/13/20 08:59 01/30/20 08:43 Assessment/Plan Assessment/Plan: (1) Lumbar degenerative disk disease (2) Lumbar radiculopathy (3) Lumbar spondylosis (4) H/o polysubstance abuse Patient will be continued on Morphine as needed. D/w Dr. Bull and he concurred. Steve Walker Jan 30, 2020 11:17
--- NOTE | 2020-01-30 11:32 | General Progress Note ---
Assessment/Plan Problem List: (1) Diabetes ICD Codes: E11.9 - Type 2 diabetes mellitus without complications SNOMED: 18777625 (2) Hypothyroid ICD Codes: E03.9 - Hypothyroidism, unspecified SNOMED: 75707434 (3) Chest pain ICD Codes: R07.9 - Chest pain, unspecified SNOMED: 36443635 Status: stable, progressing Assessment/Plan: o2 pulm tx prn pain control cbc bmp am dc plan snf Subjective Constitutional: Reports: weakness Allergies: Coded Allergies: No Known Allergies (Unverified , 12/08/19) All Systems: reviewed and negative except above Subjective sleepy calm Objective Last 24 Hour Vital Signs Date Time Temp Pulse Resp B/P (MAP) Pulse Ox O2 Delivery O2 Flow Rate FiO2 01/30/20 09:16 97.7 01/30/20 09:00 Room Air Room Air 01/30/20 08:44 104 116/74 01/30/20 08:43 116/74 01/30/20 08:00 97.7 104 19 116/74 (88) 96 01/30/20 04:00 98.0 67 20 123/58 (79) 91 01/30/20 00:00 98.1 75 18 112/59 (76) 93 01/29/20 22:12 76 133/87 01/29/20 21:00 Room Air Room Air 01/29/20 20:00 98.8 76 22 133/87 (102) 93 01/29/20 17:36 143/76 01/29/20 16:00 98.5 79 20 143/76 (98) 94 01/29/20 12:15 119/73 01/29/20 12:00 98.1 68 20 11/93 (66) 94 Intake and Output 01/29/20 01/30/20 19:00 07:00 Intake Total 840 ml 1000 ml Balance 840 ml 1000 ml Intake Oral 840 ml 1000 ml # Voids 3 5 Laboratory Tests 01/30/20 05:32: White Blood Count 7.8, Red Blood Count 4.20L, Hemoglobin 13.2L, Hematocrit 37.8L , Mean Corpuscular Volume 90, Mean Corpuscular Hemoglobin 31.4H, Mean Corpuscular Hemoglobin Concent 34.9, Red Cell Distribution Width 12.0, Platelet Count 273, Mean Platelet Volume 6.1L, Neutrophils (%) (Auto) 56.2, Lymphocytes ( %) (Auto) 28.1, Monocytes (%) (Auto) 9.1, Eosinophils (%) (Auto) 5.3H, Basophils (%) (Auto) 1.3, Sodium Level 134L, Potassium Level 4.2, Chloride Level 99, Carbon Dioxide Level 26, Anion Gap 9, Blood Urea Nitrogen 15, Creatinine 1.0, Estimat Glomerular Filtration Rate > 60, Glucose Level 346H, Calcium Level 9.2 Height (Feet): 5 Height (Inches): 4.00 Weight (Pounds): 251 General Appearance: lethargic EENT: normal ENT inspection Neck: normal alignment Cardiovascular: normal peripheral pulses, normal rate, regular rhythm Respiratory/Chest: chest wall non-tender, lungs clear, normal breath sounds Abdomen: normal bowel sounds, non tender, soft Extremities: normal inspection Edema: no edema noted Arm (L), no edema noted Arm (R), no edema noted Leg (L), no edema noted Leg (R), no edema noted Pedal (L), no edema noted Pedal (R), no edema noted Generalized Neurologic: motor weakness Skin: normal pigmentation, warm/dry Objective sl chest pain Fermín Griggs DO Jan 30, 2020 11:31
[2020-01-30 12:00] VITALS: BP 106/71
--- NOTE | 2020-01-30 13:03 | Pulmonology Progress Note ---
Assessment/Plan Problems: (1) Dizziness (2) Acute bronchitis (3) Viral syndrome (4) Mild diastolic dysfunction (5) Cardiac left ventricular ejection fraction greater than 40 percent (6) HTN (hypertension) (7) Hypothyroid (8) Diabetes Assessment/Plan MRI of brain Bilateral mastoiditis and pansinusitis. Mild atrophy and evidence of chronic small vessel disease involving white matter tracts. pt is still dizzy sputum culture and blood cultures are negative COVID-19 virus negative Pain consult requested wll reviewed dvt prophylaxis. Subjective ROS Limited/Unobtainable: No Constitutional: Reports: no symptoms HEENT: Repors: no symptoms Respiratory: Reports: no symptoms Allergies: Coded Allergies: No Known Allergies (Unverified , 12/08/19) Objective Last 24 Hour Vital Signs Date Time Temp Pulse Resp B/P (MAP) Pulse Ox O2 Delivery O2 Flow Rate FiO2 01/30/20 12:10 106/71 01/30/20 12:00 97.5 89 20 106/71 (83) 98 01/30/20 09:16 97.7 01/30/20 09:00 Room Air Room Air 01/30/20 08:44 104 116/74 01/30/20 08:43 116/74 01/30/20 08:00 97.7 104 19 116/74 (88) 96 01/30/20 04:00 98.0 67 20 123/58 (79) 91 01/30/20 00:00 98.1 75 18 112/59 (76) 93 01/29/20 22:12 76 133/87 01/29/20 21:00 Room Air Room Air 01/29/20 20:00 98.8 76 22 133/87 (102) 93 01/29/20 17:36 143/76 01/29/20 16:00 98.5 79 20 143/76 (98) 94 Intake and Output 01/29/20 01/30/20 19:00 07:00 Intake Total 840 ml 1000 ml Balance 840 ml 1000 ml Intake Oral 840 ml 1000 ml # Voids 3 5 Objective General Appearance: WD/WN HEENT: normocephalic, atraumatic Respiratory/Chest: chest wall non-tender, lungs clear Breasts: no masses Cardiovascular: normal peripheral pulses Abdomen: normal bowel sounds, soft, non tender Genitourinary: normal external genitalia Extremities: no cyanosis Skin: no rash 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 Laboratory Tests 01/30/20 05:32: White Blood Count 7.8, Red Blood Count 4.20L, Hemoglobin 13.2L, Hematocrit 37.8L , Mean Corpuscular Volume 90, Mean Corpuscular Hemoglobin 31.4H, Mean Corpuscular Hemoglobin Concent 34.9, Red Cell Distribution Width 12.0, Platelet Count 273, Mean Platelet Volume 6.1L, Neutrophils (%) (Auto) 56.2, Lymphocytes ( %) (Auto) 28.1, Monocytes (%) (Auto) 9.1, Eosinophils (%) (Auto) 5.3H, Basophils (%) (Auto) 1.3, Sodium Level 134L, Potassium Level 4.2, Chloride Level 99, Carbon Dioxide Level 26, Anion Gap 9, Blood Urea Nitrogen 15, Creatinine 1.0, Estimat Glomerular Filtration Rate > 60, Glucose Level 346H, Calcium Level 9.2 Current Medications Medications (Trade) Dose Ordered Sig/Rodney Route PRN Reason Start Time Stop Time Status Last Admin Dose Admin Acetaminophen (Tylenol) 650 mg Q4H PRN ORAL Mild Pain/Temp > 100.5 01/26/20 01:00 02/12/20 16:59 01/26/20 18:50 Aspirin (Ecotrin) 81 mg DAILY ORAL 01/23/20 09:00 02/28/20 08:59 01/30/20 08:43 Bupropion HCl (Wellbutrin SR) 150 mg EVERY 12 HOURS ORAL 01/22/20 21:00 02/13/20 08:59 01/30/20 08:46 Clopidogrel Bisulfate (Plavix) 75 mg DAILY ORAL 01/23/20 09:00 02/13/20 08:59 01/30/20 08:44 Dextrose (Dextrose 50%) 25 ml Q30M PRN IV Hypoglycemia 01/22/20 17:00 04/18/20 18:59 Dextrose (Dextrose 50%) 50 ml Q30M PRN IV Hypoglycemia 01/22/20 17:00 04/18/20 18:59 Gabapentin (Neurontin) 300 mg BEDTIME ORAL 01/22/20 21:00 02/12/20 22:29 01/29/20 22:11 Heparin Sodium (Porcine) (Heparin 5000 units/ml) 5,000 units EVERY 12 HOURS SUBQ 01/22/20 21:00 02/28/20 08:59 01/30/20 08:46 Ibuprofen (Motrin) 600 mg TIDPRN PRN ORAL chest pain not relievd by nt 01/28/20 17:00 02/27/20 16:59 Insulin Aspart (NovoLOG) BEFORE MEALS AND HS SUBQ 01/22/20 21:00 04/18/20 20:59 01/30/20 12:11 Isosorbide Dinitrate (Isordil) 10 mg TID ORAL 01/22/20 18:00 02/13/20 17:59 01/30/20 12:10 Loperamide HCl (Imodium) 4 mg Q6H PRN ORAL DIARRHEA 01/23/20 11:00 02/22/20 10:59 Metoprolol Succinate (Toprol XL) 50 mg Q12HR ORAL 01/22/20 21:00 04/17/20 19:29 01/30/20 08:44 Mirtazapine (Remeron) 7.5 mg BEDTIME ORAL 01/22/20 21:00 02/12/20 22:29 Morphine Sulfate (Morphine Sulfate) 2 mg Q4H PRN IVP Severe Pain (Pain Scale 7-10) 01/27/20 00:30 02/03/20 00:29 01/30/20 08:46 Nitroglycerin (Ntg) 0.4 mg Q5M PRN SL Prn Chest Pain 01/22/20 16:50 02/16/20 11:44 01/27/20 15:15 Ondansetron HCl (Zofran) 4 mg Q6H PRN IVP Nausea & Vomiting 01/22/20 18:00 02/12/20 17:59 01/29/20 22:47 Polyethylene Glycol (Miralax) 17 gm DAILYPRN PRN ORAL Constipation 01/23/20 15:45 02/12/20 15:44 Promethazine HCl/ Codeine (Phenergan with Codeine) 5 ml Q4H PRN ORAL For Cough 01/22/20 19:45 02/12/20 15:44 01/26/20 13:18 Theophylline (Jose-Dur) 100 mg EVERY 12 HOURS ORAL 01/22/20 21:00 02/13/20 08:59 01/30/20 08:43 Richard Hood MD Jan 30, 2020 13:03
[2020-01-30 16:00] VITALS: BP 140/61
--- NOTE | 2020-01-30 18:06 | Infectious Diseases Prog Note ---
Assessment/Plan Assessment/Plan ASSESSMENT: The patient is a 54-year-old male with: Shortness of breath Afebrile Elevated white blood cells Leukopenia Covid-19 : Negative History of CHF. istory of CAD History of hypothyroidism. History of hypertension. History of chronic obstructive pulmonary disease. Liver cirrhosis. History of drug abuse in the past. GERD PLAN: off of AB R x 02/19 Sp doxycycline and Rocephin day # 03/03 Monitor CBC. Monitor BMP Monitor chest x-ray. ELBERT RN Subjective Allergies: Coded Allergies: No Known Allergies (Unverified , 12/08/19) Subjective Afebrile. RA. No leukocytosis chest pain better Objective Vital Signs Last 24 Hour Vital Signs Date Time Temp Pulse Resp B/P (MAP) Pulse Ox O2 Delivery O2 Flow Rate FiO2 01/30/20 17:03 140/61 01/30/20 16:00 98.3 68 19 140/61 (87) 98 01/30/20 15:34 97.5 01/30/20 12:10 106/71 01/30/20 12:00 97.5 89 20 106/71 (83) 98 01/30/20 09:00 Room Air Room Air 01/30/20 08:44 104 116/74 01/30/20 08:43 116/74 01/30/20 08:00 97.7 104 19 116/74 (88) 96 01/30/20 04:00 98.0 67 20 123/58 (79) 91 01/30/20 00:00 98.1 75 18 112/59 (76) 93 01/29/20 22:12 76 133/87 01/29/20 21:00 Room Air Room Air 01/29/20 20:00 98.8 76 22 133/87 (102) 93 Height (Feet): 5 Height (Inches): 4.00 Weight (Pounds): 251 Objective Gen: NAD. well nourished. well hydrated. HEENT: anicteric sclera CV: RRR. no rubs Resp: RRR. no wheezes or crackles. unlabored Abd: soft. no TTP. nondistended. Neuro: AAO. interactive Laboratory Tests Test 01/30/20 05:32 White Blood Count 7.8 K/UL (4.8-10.8) Red Blood Count 4.20 M/UL (4.70-6.10) L Hemoglobin 13.2 G/DL (14.2-18.0) L Hematocrit 37.8 % (42.0-52.0) L Mean Corpuscular Volume 90 FL (80-99) Mean Corpuscular Hemoglobin 31.4 PG (27.0-31.0) H Mean Corpuscular Hemoglobin Concent 34.9 G/DL (32.0-36.0) Red Cell Distribution Width 12.0 % (11.6-14.8) Platelet Count 273 K/UL (150-450) Mean Platelet Volume 6.1 FL (6.5-10.1) L Neutrophils (%) (Auto) 56.2 % (45.0-75.0) Lymphocytes (%) (Auto) 28.1 % (20.0-45.0) Monocytes (%) (Auto) 9.1 % (1.0-10.0) Eosinophils (%) (Auto) 5.3 % (0.0-3.0) H Basophils (%) (Auto) 1.3 % (0.0-2.0) Sodium Level 134 MMOL/L (136-145) L Potassium Level 4.2 MMOL/L (3.5-5.1) Chloride Level 99 MMOL/L (98-107) Carbon Dioxide Level 26 MMOL/L (21-32) Anion Gap 9 mmol/L (5-15) Blood Urea Nitrogen 15 mg/dL (7-18) Creatinine 1.0 MG/DL (0.55-1.30) Estimat Glomerular Filtration Rate > 60 mL/min (>60) Glucose Level 346 MG/DL (74-106) H Calcium Level 9.2 MG/DL (8.5-10.1) Current Medications Medications (Trade) Dose Ordered Sig/Rodney Route PRN Reason Start Time Stop Time Status Last Admin Dose Admin Acetaminophen (Tylenol) 650 mg Q4H PRN ORAL Mild Pain/Temp > 100.5 01/26/20 01:00 02/12/20 16:59 01/26/20 18:50 Aspirin (Ecotrin) 81 mg DAILY ORAL 01/23/20 09:00 02/28/20 08:59 01/30/20 08:43 Bupropion HCl (Wellbutrin SR) 150 mg EVERY 12 HOURS ORAL 01/22/20 21:00 02/13/20 08:59 01/30/20 08:46 Clopidogrel Bisulfate (Plavix) 75 mg DAILY ORAL 01/23/20 09:00 02/13/20 08:59 01/30/20 08:44 Dextrose (Dextrose 50%) 25 ml Q30M PRN IV Hypoglycemia 01/22/20 17:00 04/18/20 18:59 Dextrose (Dextrose 50%) 50 ml Q30M PRN IV Hypoglycemia 01/22/20 17:00 04/18/20 18:59 Gabapentin (Neurontin) 300 mg BEDTIME ORAL 01/22/20 21:00 02/12/20 22:29 01/29/20 22:11 Heparin Sodium (Porcine) (Heparin 5000 units/ml) 5,000 units EVERY 12 HOURS SUBQ 01/22/20 21:00 02/28/20 08:59 01/30/20 08:46 Ibuprofen (Motrin) 600 mg TIDPRN PRN ORAL chest pain not relievd by nt 01/28/20 17:00 02/27/20 16:59 Insulin Aspart (NovoLOG) BEFORE MEALS AND HS SUBQ 01/22/20 21:00 04/18/20 20:59 01/30/20 17:05 Isosorbide Dinitrate (Isordil) 10 mg TID ORAL 01/22/20 18:00 02/13/20 17:59 01/30/20 17:03 Loperamide HCl (Imodium) 4 mg Q6H PRN ORAL DIARRHEA 01/23/20 11:00 02/22/20 10:59 Metoprolol Succinate (Toprol XL) 50 mg Q12HR ORAL 01/22/20 21:00 04/17/20 19:29 01/30/20 08:44 Mirtazapine (Remeron) 7.5 mg BEDTIME ORAL 01/22/20 21:00 02/12/20 22:29 Morphine Sulfate (Morphine Sulfate) 2 mg Q4H PRN IVP Severe Pain (Pain Scale 7-10) 01/27/20 00:30 02/03/20 00:29 01/30/20 15:04 Nitroglycerin (Ntg) 0.4 mg Q5M PRN SL Prn Chest Pain 01/22/20 16:50 02/16/20 11:44 01/27/20 15:15 Ondansetron HCl (Zofran) 4 mg Q6H PRN IVP Nausea & Vomiting 01/22/20 18:00 02/12/20 17:59 01/30/20 17:05 Polyethylene Glycol (Miralax) 17 gm DAILYPRN PRN ORAL Constipation 01/23/20 15:45 02/12/20 15:44 Promethazine HCl/ Codeine (Phenergan with Codeine) 5 ml Q4H PRN ORAL For Cough 01/22/20 19:45 02/12/20 15:44 01/26/20 13:18 Theophylline (Jose-Dur) 100 mg EVERY 12 HOURS ORAL 01/22/20 21:00 02/13/20 08:59 01/30/20 08:43 Kym Hernandez MD Jan 30, 2020 18:06
[2020-01-30 20:00] VITALS: BP 131/61
[2020-01-31] VITALS: BP 133/83
[2020-01-31] MEDS: Morphine Sulfate 2mg/ml Inj(IV/IM USE ONLY) IVP PRN ×3 (03:29→14:20)
[2020-01-31 04:00] VITALS: BP 136/75
[2020-01-31] MEDS: NovoLOG Insulin Flexpen SUBQ SCH ×4 (06:07→20:33)
[2020-01-31 08:00] VITALS: BP 125/70
--- NOTE | 2020-01-31 08:38 | General Progress Note ---
Assessment/Plan Problem List: (1) Diabetes ICD Codes: E11.9 - Type 2 diabetes mellitus without complications SNOMED: 25643533 (2) Hypothyroid ICD Codes: E03.9 - Hypothyroidism, unspecified SNOMED: 17844671 (3) Chest pain ICD Codes: R07.9 - Chest pain, unspecified SNOMED: 02682199 Status: stable, progressing Assessment/Plan: o2 pulm tx prn pain control cbc bmp am dc plan snf Subjective Constitutional: Reports: weakness Allergies: Coded Allergies: No Known Allergies (Unverified , 12/08/19) All Systems: reviewed and negative except above Subjective sleepy calm Objective Last 24 Hour Vital Signs Date Time Temp Pulse Resp B/P (MAP) Pulse Ox O2 Delivery O2 Flow Rate FiO2 01/31/20 04:00 97.5 72 20 136/75 (95) 92 01/31/20 00:00 98.6 70 20 133/83 (100) 92 01/30/20 21:16 70 131/61 01/30/20 20:35 Room Air Room Air 01/30/20 20:00 98.4 70 20 131/61 (84) 92 01/30/20 17:03 140/61 01/30/20 16:00 98.3 68 19 140/61 (87) 98 01/30/20 15:34 97.5 01/30/20 12:10 106/71 01/30/20 12:00 97.5 89 20 106/71 (83) 98 01/30/20 09:00 Room Air Room Air 01/30/20 08:44 104 116/74 01/30/20 08:43 116/74 Intake and Output 01/30/20 01/31/20 19:00 07:00 Intake Total 2000 ml 1000 ml Balance 2000 ml 1000 ml Intake Oral 2000 ml 1000 ml # Voids 6 3 Laboratory Tests 01/31/20 08:30: White Blood Count [Pending], Red Blood Count [Pending], Hemoglobin [Pending], Hematocrit [Pending], Mean Corpuscular Volume [Pending], Mean Corpuscular Hemoglobin [Pending], Mean Corpuscular Hemoglobin Concent [Pending], Red Cell Distribution Width [Pending], Platelet Count [Pending], Mean Platelet Volume [ Pending], Neutrophils (%) (Auto) [Pending], Lymphocytes (%) (Auto) [Pending], Monocytes (%) (Auto) [Pending], Eosinophils (%) (Auto) [Pending], Basophils (%) (Auto) [Pending], Sodium Level [Pending], Potassium Level [Pending], Chloride Level [Pending], Carbon Dioxide Level [Pending], Blood Urea Nitrogen [Pending], Creatinine [Pending], Estimat Glomerular Filtration Rate [Pending], Glucose Level [Pending], Calcium Level [Pending] Height (Feet): 5 Height (Inches): 4.00 Weight (Pounds): 251 General Appearance: lethargic EENT: normal ENT inspection Neck: normal alignment Cardiovascular: normal peripheral pulses, normal rate, regular rhythm Respiratory/Chest: chest wall non-tender, lungs clear, normal breath sounds Abdomen: normal bowel sounds, non tender, soft Extremities: normal inspection Edema: no edema noted Arm (L), no edema noted Arm (R), no edema noted Leg (L), no edema noted Leg (R), no edema noted Pedal (L), no edema noted Pedal (R), no edema noted Generalized Neurologic: motor weakness Skin: normal pigmentation, warm/dry Objective sl chest pain Fermín Griggs DO Jan 31, 2020 08:38
[2020-01-31 08:41] LABS: BASOPHILS % (AUTO) 1.1 % (0.0-2.0); EOSINOPHILS % (AUTO) 4.8 % (0.0-3.0); HEMATOCRIT 39.4 % (42.0-52.0); HEMOGLOBIN 13.7 G/DL (14.2-18.0); LYMPHOCYTES % (AUTO) 25.3 % (20.0-45.0); MEAN CORPUSCULAR VOLUME 90 FL (80-99); MONOCYTES % (AUTO) 7.5 % (1.0-10.0); NEUTROPHILS % (AUTO) 61.3 % (45.0-75.0); PLATELET COUNT 278 K/UL (150-450); RED CELL DISTRIBUTION WIDTH 11.8 % (11.6-14.8); WHITE BLOOD COUNT 7.7 K/UL (4.8-10.8)
[2020-01-31] MEDS: Theophylline ER 100mg ORAL SCH ×2 (08:41→20:31)
[2020-01-31] MEDS: Aspirin EC 81mg tab ORAL SCH (08:41)
[2020-01-31] MEDS: BuPROPion SR 150mg tab ORAL SCH ×2 (08:41→20:38)
[2020-01-31] MEDS: Metoprolol Succinate XL 50mg tab ORAL SCH ×2 (08:41→20:31)
[2020-01-31] MEDS: Heparin 5000 units/ml inj SUBQ SCH ×2 (08:43→20:34)
[2020-01-31 09:17] LABS: ANION GAP 9 mmol/L (5-15); BLOOD UREA NITROGEN 16 mg/dL (7-18); CALCIUM 9.6 MG/DL (8.5-10.1); CARBON DIOXIDE 26 MMOL/L (21-32); CHLORIDE 102 MMOL/L (98-107); CREATININE 0.9 MG/DL (0.55-1.30); POTASSIUM 4.1 MMOL/L (3.5-5.1); SODIUM 137 MMOL/L (136-145)
[2020-01-31 12:00] VITALS: BP 124/78
--- NOTE | 2020-01-31 12:40 | General Progress Note ---
Assessment/Plan Assessment/Plan: (1) Lumbar degenerative disk disease (2) Lumbar radiculopathy (3) Lumbar spondylosis (4) H/o polysubstance abuse Patient will be continued on Morphine as needed. D/w Dr. Bull and he concurred. Subjective Date patient seen: Jan 31, 2020 Time patient seen: 12:00 - pm Constitutional: Reports: no symptoms HEENT: Reports: no symptoms Cardiovascular: Reports: no symptoms Respiratory: Reports: no symptoms Gastrointestinal/Abdominal: Reports: no symptoms Genitourinary: Reports: no symptoms Neurologic/Psychiatric: Reports: no symptoms Endocrine: Reports: no symptoms Hematologic/Lymphatic: Reports: no symptoms Allergies: Coded Allergies: No Known Allergies (Unverified , 12/08/19) Subjective Doing well and tolerating the pain on the Morphine. No new complaints at the time. Objective Last 24 Hour Vital Signs Date Time Temp Pulse Resp B/P (MAP) Pulse Ox O2 Delivery O2 Flow Rate FiO2 01/31/20 12:10 124/78 01/31/20 12:00 97.7 74 18 124/78 (93) 97 01/31/20 10:34 97.6 01/31/20 09:00 Room Air Room Air 01/31/20 08:41 65 125/70 01/31/20 08:41 125/70 01/31/20 08:00 97.6 65 17 125/70 (88) 93 01/31/20 04:00 97.5 72 20 136/75 (95) 92 01/31/20 00:00 98.6 70 20 133/83 (100) 92 01/30/20 21:16 70 131/61 01/30/20 20:35 Room Air Room Air 01/30/20 20:00 98.4 70 20 131/61 (84) 92 01/30/20 17:03 140/61 01/30/20 16:00 98.3 68 19 140/61 (87) 98 Intake and Output 01/30/20 01/31/20 19:00 07:00 Intake Total 2000 ml 1000 ml Balance 2000 ml 1000 ml Intake Oral 2000 ml 1000 ml # Voids 6 3 Laboratory Tests 01/31/20 08:30: White Blood Count 7.7, Red Blood Count 4.40L, Hemoglobin 13.7L, Hematocrit 39.4L , Mean Corpuscular Volume 90, Mean Corpuscular Hemoglobin 31.1H, Mean Corpuscular Hemoglobin Concent 34.7, Red Cell Distribution Width 11.8, Platelet Count 278, Mean Platelet Volume 5.6L, Neutrophils (%) (Auto) 61.3, Lymphocytes ( %) (Auto) 25.3, Monocytes (%) (Auto) 7.5, Eosinophils (%) (Auto) 4.8H, Basophils (%) (Auto) 1.1, Sodium Level 137, Potassium Level 4.1, Chloride Level 102, Carbon Dioxide Level 26, Anion Gap 9, Blood Urea Nitrogen 16, Creatinine 0.9, Estimat Glomerular Filtration Rate > 60, Glucose Level 329H, Calcium Level 9.6 Height (Feet): 5 Height (Inches): 4.00 Weight (Pounds): 249 General Appearance: no apparent distress, alert EENT: PERRL/EOMI, normal ENT inspection Neck: non-tender, normal alignment Cardiovascular: normal rate, regular rhythm Respiratory/Chest: lungs clear, normal breath sounds Abdomen: non tender, soft Extremities: non-tender, normal inspection Edema: no edema noted Generalized Neurologic: alert, oriented x 3 Skin: warm/dry Steve Walker Jan 31, 2020 12:40
--- NOTE | 2020-01-31 13:57 | Pulmonology Progress Note ---
Assessment/Plan Problems: (1) Dizziness (2) Acute bronchitis (3) Viral syndrome (4) Mild diastolic dysfunction (5) Cardiac left ventricular ejection fraction greater than 40 percent (6) HTN (hypertension) (7) Hypothyroid (8) Diabetes Assessment/Plan no new complains pt is still dizzy sputum culture and blood cultures are negative COVID-19 virus negative Pain consult requested wll reviewed dvt prophylaxis. Subjective ROS Limited/Unobtainable: No Constitutional: Reports: no symptoms HEENT: Repors: no symptoms Allergies: Coded Allergies: No Known Allergies (Unverified , 12/08/19) Objective Last 24 Hour Vital Signs Date Time Temp Pulse Resp B/P (MAP) Pulse Ox O2 Delivery O2 Flow Rate FiO2 01/31/20 12:10 124/78 01/31/20 12:00 97.7 74 18 124/78 (93) 97 01/31/20 10:34 97.6 01/31/20 09:00 Room Air Room Air 01/31/20 08:41 65 125/70 01/31/20 08:41 125/70 01/31/20 08:00 97.6 65 17 125/70 (88) 93 01/31/20 04:00 97.5 72 20 136/75 (95) 92 01/31/20 00:00 98.6 70 20 133/83 (100) 92 01/30/20 21:16 70 131/61 01/30/20 20:35 Room Air Room Air 01/30/20 20:00 98.4 70 20 131/61 (84) 92 01/30/20 17:03 140/61 01/30/20 16:00 98.3 68 19 140/61 (87) 98 Intake and Output 01/30/20 01/31/20 19:00 07:00 Intake Total 2000 ml 1000 ml Balance 2000 ml 1000 ml Intake Oral 2000 ml 1000 ml # Voids 6 3 Objective General Appearance: WD/WN HEENT: normocephalic, atraumatic Respiratory/Chest: chest wall non-tender, lungs clear Breasts: no masses Cardiovascular: normal peripheral pulses Abdomen: normal bowel sounds, soft, non tender Genitourinary: normal external genitalia Extremities: no cyanosis Skin: no rash 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 Laboratory Tests 01/31/20 08:30: White Blood Count 7.7, Red Blood Count 4.40L, Hemoglobin 13.7L, Hematocrit 39.4L , Mean Corpuscular Volume 90, Mean Corpuscular Hemoglobin 31.1H, Mean Corpuscular Hemoglobin Concent 34.7, Red Cell Distribution Width 11.8, Platelet Count 278, Mean Platelet Volume 5.6L, Neutrophils (%) (Auto) 61.3, Lymphocytes ( %) (Auto) 25.3, Monocytes (%) (Auto) 7.5, Eosinophils (%) (Auto) 4.8H, Basophils (%) (Auto) 1.1, Sodium Level 137, Potassium Level 4.1, Chloride Level 102, Carbon Dioxide Level 26, Anion Gap 9, Blood Urea Nitrogen 16, Creatinine 0.9, Estimat Glomerular Filtration Rate > 60, Glucose Level 329H, Calcium Level 9.6 Current Medications Medications (Trade) Dose Ordered Sig/Rodney Route PRN Reason Start Time Stop Time Status Last Admin Dose Admin Acetaminophen (Tylenol) 650 mg Q4H PRN ORAL Mild Pain/Temp > 100.5 01/26/20 01:00 02/12/20 16:59 01/26/20 18:50 Aspirin (Ecotrin) 81 mg DAILY ORAL 01/23/20 09:00 02/28/20 08:59 01/31/20 08:41 Bupropion HCl (Wellbutrin SR) 150 mg EVERY 12 HOURS ORAL 01/22/20 21:00 02/13/20 08:59 01/31/20 08:41 Clopidogrel Bisulfate (Plavix) 75 mg DAILY ORAL 01/23/20 09:00 02/13/20 08:59 01/31/20 08:41 Dextrose (Dextrose 50%) 25 ml Q30M PRN IV Hypoglycemia 01/22/20 17:00 04/18/20 18:59 Dextrose (Dextrose 50%) 50 ml Q30M PRN IV Hypoglycemia 01/22/20 17:00 04/18/20 18:59 Gabapentin (Neurontin) 300 mg BEDTIME ORAL 01/22/20 21:00 02/12/20 22:29 01/30/20 21:16 Heparin Sodium (Porcine) (Heparin 5000 units/ml) 5,000 units EVERY 12 HOURS SUBQ 01/22/20 21:00 02/28/20 08:59 01/31/20 08:43 Ibuprofen (Motrin) 600 mg TIDPRN PRN ORAL chest pain not relievd by nt 01/28/20 17:00 02/27/20 16:59 Insulin Aspart (NovoLOG) BEFORE MEALS AND HS SUBQ 01/22/20 21:00 04/18/20 20:59 01/31/20 12:11 Isosorbide Dinitrate (Isordil) 10 mg TID ORAL 01/22/20 18:00 02/13/20 17:59 01/31/20 12:10 Loperamide HCl (Imodium) 4 mg Q6H PRN ORAL DIARRHEA 01/23/20 11:00 02/22/20 10:59 Metoprolol Succinate (Toprol XL) 50 mg Q12HR ORAL 01/22/20 21:00 04/17/20 19:29 01/31/20 08:41 Mirtazapine (Remeron) 7.5 mg BEDTIME ORAL 01/22/20 21:00 02/12/20 22:29 Morphine Sulfate (Morphine Sulfate) 2 mg Q4H PRN IVP Severe Pain (Pain Scale 7-10) 01/27/20 00:30 02/03/20 00:29 01/31/20 10:04 Nitroglycerin (Ntg) 0.4 mg Q5M PRN SL Prn Chest Pain 01/22/20 16:50 02/16/20 11:44 01/27/20 15:15 Ondansetron HCl (Zofran) 4 mg Q6H PRN IVP Nausea & Vomiting 01/22/20 18:00 02/12/20 17:59 01/31/20 10:03 Polyethylene Glycol (Miralax) 17 gm DAILYPRN PRN ORAL Constipation 01/23/20 15:45 02/12/20 15:44 Promethazine HCl/ Codeine (Phenergan with Codeine) 5 ml Q4H PRN ORAL For Cough 01/22/20 19:45 02/12/20 15:44 01/26/20 13:18 Theophylline (Jose-Dur) 100 mg EVERY 12 HOURS ORAL 01/22/20 21:00 02/13/20 08:59 01/31/20 08:41 Richard Hood MD Jan 31, 2020 13:56
[2020-01-31 16:00] VITALS: BP 124/68
[2020-01-31] MEDS ORDERED: HYDROcodone/Acetamin 5/325 tab ORAL PRN (17:00)
[2020-01-31 20:00] VITALS: BP 108/61
--- NOTE | 2020-01-31 20:27 | Infectious Diseases Prog Note ---
Assessment/Plan Assessment/Plan ASSESSMENT: The patient is a 54-year-old male with: Shortness of breath Afebrile Elevated white blood cells Leukopenia Covid-19 : Negative History of CHF. istory of CAD History of hypothyroidism. History of hypertension. History of chronic obstructive pulmonary disease. Liver cirrhosis. History of drug abuse in the past. GERD PLAN: off of AB R x 02/19 Sp doxycycline and Rocephin day # 03/03 Monitor CBC. Monitor BMP Monitor chest x-ray. ELBERT RN Subjective Allergies: Coded Allergies: No Known Allergies (Unverified , 12/08/19) Subjective Afebrile. RA. No leukocytosis no cough Objective Vital Signs Last 24 Hour Vital Signs Date Time Temp Pulse Resp B/P (MAP) Pulse Ox O2 Delivery O2 Flow Rate FiO2 01/31/20 20:00 98.0 75 19 108/61 (77) 98 01/31/20 17:04 124/68 01/31/20 16:00 98.0 75 18 124/68 (86) 97 01/31/20 14:50 97.7 01/31/20 12:10 124/78 01/31/20 12:00 97.7 74 18 124/78 (93) 97 01/31/20 09:00 Room Air Room Air 01/31/20 08:41 65 125/70 01/31/20 08:41 125/70 01/31/20 08:00 97.6 65 17 125/70 (88) 93 01/31/20 04:00 97.5 72 20 136/75 (95) 92 01/31/20 00:00 98.6 70 20 133/83 (100) 92 01/30/20 21:16 70 131/61 01/30/20 20:35 Room Air Room Air Height (Feet): 5 Height (Inches): 4.00 Weight (Pounds): 249 Objective Gen: NAD. well nourished. well hydrated. HEENT: anicteric sclera CV: RRR. no rubs Resp: RRR. no wheezes or crackles. unlabored Abd: soft. no TTP. nondistended. Neuro: AAO. interactive Laboratory Tests Test 01/31/20 08:30 White Blood Count 7.7 K/UL (4.8-10.8) Red Blood Count 4.40 M/UL (4.70-6.10) L Hemoglobin 13.7 G/DL (14.2-18.0) L Hematocrit 39.4 % (42.0-52.0) L Mean Corpuscular Volume 90 FL (80-99) Mean Corpuscular Hemoglobin 31.1 PG (27.0-31.0) H Mean Corpuscular Hemoglobin Concent 34.7 G/DL (32.0-36.0) Red Cell Distribution Width 11.8 % (11.6-14.8) Platelet Count 278 K/UL (150-450) Mean Platelet Volume 5.6 FL (6.5-10.1) L Neutrophils (%) (Auto) 61.3 % (45.0-75.0) Lymphocytes (%) (Auto) 25.3 % (20.0-45.0) Monocytes (%) (Auto) 7.5 % (1.0-10.0) Eosinophils (%) (Auto) 4.8 % (0.0-3.0) H Basophils (%) (Auto) 1.1 % (0.0-2.0) Sodium Level 137 MMOL/L (136-145) Potassium Level 4.1 MMOL/L (3.5-5.1) Chloride Level 102 MMOL/L (98-107) Carbon Dioxide Level 26 MMOL/L (21-32) Anion Gap 9 mmol/L (5-15) Blood Urea Nitrogen 16 mg/dL (7-18) Creatinine 0.9 MG/DL (0.55-1.30) Estimat Glomerular Filtration Rate > 60 mL/min (>60) Glucose Level 329 MG/DL (74-106) H Calcium Level 9.6 MG/DL (8.5-10.1) Current Medications Medications (Trade) Dose Ordered Sig/Rodney Route PRN Reason Start Time Stop Time Status Last Admin Dose Admin Acetaminophen (Tylenol) 650 mg Q4H PRN ORAL Mild Pain/Temp > 100.5 01/26/20 01:00 02/12/20 16:59 01/26/20 18:50 Acetaminophen/ Hydrocodone Bitart ([place] 5/325) 1 tab Q6H PRN ORAL Severe Pain (Pain Scale 7-10) 01/31/20 17:00 02/07/20 16:59 Aspirin (Ecotrin) 81 mg DAILY ORAL 01/23/20 09:00 02/28/20 08:59 01/31/20 08:41 Bupropion HCl (Wellbutrin SR) 150 mg EVERY 12 HOURS ORAL 01/22/20 21:00 02/13/20 08:59 01/31/20 08:41 Clopidogrel Bisulfate (Plavix) 75 mg DAILY ORAL 01/23/20 09:00 02/13/20 08:59 01/31/20 08:41 Dextrose (Dextrose 50%) 25 ml Q30M PRN IV Hypoglycemia 01/22/20 17:00 04/18/20 18:59 Dextrose (Dextrose 50%) 50 ml Q30M PRN IV Hypoglycemia 01/22/20 17:00 04/18/20 18:59 Gabapentin (Neurontin) 300 mg BEDTIME ORAL 01/22/20 21:00 02/12/20 22:29 01/30/20 21:16 Heparin Sodium (Porcine) (Heparin 5000 units/ml) 5,000 units EVERY 12 HOURS SUBQ 01/22/20 21:00 02/28/20 08:59 01/31/20 08:43 Ibuprofen (Motrin) 600 mg TIDPRN PRN ORAL chest pain not relievd by nt 01/28/20 17:00 02/27/20 16:59 Insulin Aspart (NovoLOG) BEFORE MEALS AND HS SUBQ 01/22/20 21:00 04/18/20 20:59 01/31/20 17:06 Isosorbide Dinitrate (Isordil) 10 mg TID ORAL 01/22/20 18:00 02/13/20 17:59 01/31/20 17:04 Loperamide HCl (Imodium) 4 mg Q6H PRN ORAL DIARRHEA 01/23/20 11:00 02/22/20 10:59 Metoprolol Succinate (Toprol XL) 50 mg Q12HR ORAL 01/22/20 21:00 04/17/20 19:29 01/31/20 08:41 Mirtazapine (Remeron) 7.5 mg BEDTIME ORAL 01/22/20 21:00 02/12/20 22:29 Nitroglycerin (Ntg) 0.4 mg Q5M PRN SL Prn Chest Pain 01/22/20 16:50 02/16/20 11:44 01/27/20 15:15 Ondansetron HCl (Zofran) 4 mg Q6H PRN IVP Nausea & Vomiting 01/22/20 18:00 02/12/20 17:59 01/31/20 10:03 Polyethylene Glycol (Miralax) 17 gm DAILYPRN PRN ORAL Constipation 01/23/20 15:45 02/12/20 15:44 Promethazine HCl/ Codeine (Phenergan with Codeine) 5 ml Q4H PRN ORAL For Cough 01/22/20 19:45 02/12/20 15:44 01/26/20 13:18 Theophylline (Jose-Dur) 100 mg EVERY 12 HOURS ORAL 01/22/20 21:00 02/13/20 08:59 01/31/20 08:41 Kym Hernandez MD Jan 31, 2020 20:27
[2020-02-01] VITALS (7 sets, daily range): BP systolic 110–122; BP diastolic 60–72
[2020-02-01] MEDS: NovoLOG Insulin Flexpen SUBQ SCH ×4 (05:52→22:02)
--- NOTE | 2020-02-01 08:02 | Pulmonology Progress Note ---
Assessment/Plan Problems: (1) Dizziness (2) Acute bronchitis (3) Viral syndrome (4) Mild diastolic dysfunction (5) Cardiac left ventricular ejection fraction greater than 40 percent (6) HTN (hypertension) (7) Hypothyroid (8) Diabetes Assessment/Plan no new complains pt is still dizzy sputum culture and blood cultures are negative COVID-19 virus negative Pain consult requested wll reviewed dvt prophylaxis. Subjective ROS Limited/Unobtainable: No Constitutional: Reports: no symptoms HEENT: Repors: no symptoms Respiratory: Reports: no symptoms Allergies: Coded Allergies: No Known Allergies (Unverified , 12/08/19) Objective Last 24 Hour Vital Signs Date Time Temp Pulse Resp B/P (MAP) Pulse Ox O2 Delivery O2 Flow Rate FiO2 02/01/20 04:00 98.4 80 20 110/71 (84) 98 02/01/20 00:00 98.4 70 19 118/72 (87) 99 01/31/20 21:00 Room Air Room Air 01/31/20 20:31 86 125/81 01/31/20 20:00 98.0 75 19 108/61 (77) 98 01/31/20 17:04 124/68 01/31/20 16:00 98.0 75 18 124/68 (86) 97 01/31/20 14:50 97.7 01/31/20 12:10 124/78 01/31/20 12:00 97.7 74 18 124/78 (93) 97 01/31/20 09:00 Room Air Room Air 01/31/20 08:41 65 125/70 01/31/20 08:41 125/70 Intake and Output 01/31/20 02/01/20 19:00 07:00 Intake Total 1200 ml 890 ml Balance 1200 ml 890 ml Intake Oral 1200 ml 890 ml # Voids 3 3 Objective General Appearance: WD/WN HEENT: normocephalic, atraumatic Respiratory/Chest: chest wall non-tender, lungs clear Breasts: no masses Cardiovascular: normal peripheral pulses Abdomen: normal bowel sounds, soft, non tender Genitourinary: normal external genitalia Extremities: no cyanosis Skin: no rash 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 Laboratory Tests 01/31/20 08:30: White Blood Count 7.7, Red Blood Count 4.40L, Hemoglobin 13.7L, Hematocrit 39.4L , Mean Corpuscular Volume 90, Mean Corpuscular Hemoglobin 31.1H, Mean Corpuscular Hemoglobin Concent 34.7, Red Cell Distribution Width 11.8, Platelet Count 278, Mean Platelet Volume 5.6L, Neutrophils (%) (Auto) 61.3, Lymphocytes ( %) (Auto) 25.3, Monocytes (%) (Auto) 7.5, Eosinophils (%) (Auto) 4.8H, Basophils (%) (Auto) 1.1, Sodium Level 137, Potassium Level 4.1, Chloride Level 102, Carbon Dioxide Level 26, Anion Gap 9, Blood Urea Nitrogen 16, Creatinine 0.9, Estimat Glomerular Filtration Rate > 60, Glucose Level 329H, Calcium Level 9.6 Current Medications Medications (Trade) Dose Ordered Sig/Rodney Route PRN Reason Start Time Stop Time Status Last Admin Dose Admin Acetaminophen (Tylenol) 650 mg Q4H PRN ORAL Mild Pain/Temp > 100.5 01/26/20 01:00 02/12/20 16:59 01/26/20 18:50 Acetaminophen/ Hydrocodone Bitart ([place] 5/325) 1 tab Q6H PRN ORAL Severe Pain (Pain Scale 7-10) 01/31/20 17:00 02/07/20 16:59 Aspirin (Ecotrin) 81 mg DAILY ORAL 01/23/20 09:00 02/28/20 08:59 01/31/20 08:41 Bupropion HCl (Wellbutrin SR) 150 mg EVERY 12 HOURS ORAL 01/22/20 21:00 02/13/20 08:59 01/31/20 08:41 Clopidogrel Bisulfate (Plavix) 75 mg DAILY ORAL 01/23/20 09:00 02/13/20 08:59 01/31/20 08:41 Dextrose (Dextrose 50%) 25 ml Q30M PRN IV Hypoglycemia 01/22/20 17:00 04/18/20 18:59 Dextrose (Dextrose 50%) 50 ml Q30M PRN IV Hypoglycemia 01/22/20 17:00 04/18/20 18:59 Gabapentin (Neurontin) 300 mg BEDTIME ORAL 01/22/20 21:00 02/12/20 22:29 01/31/20 20:31 Heparin Sodium (Porcine) (Heparin 5000 units/ml) 5,000 units EVERY 12 HOURS SUBQ 01/22/20 21:00 02/28/20 08:59 01/31/20 20:34 Ibuprofen (Motrin) 600 mg TIDPRN PRN ORAL chest pain not relievd by nt 01/28/20 17:00 02/27/20 16:59 Insulin Aspart (NovoLOG) BEFORE MEALS AND HS SUBQ 01/22/20 21:00 04/18/20 20:59 02/01/20 05:52 Isosorbide Dinitrate (Isordil) 10 mg TID ORAL 01/22/20 18:00 02/13/20 17:59 01/31/20 17:04 Loperamide HCl (Imodium) 4 mg Q6H PRN ORAL DIARRHEA 01/23/20 11:00 02/22/20 10:59 Metoprolol Succinate (Toprol XL) 50 mg Q12HR ORAL 01/22/20 21:00 04/17/20 19:29 01/31/20 20:31 Mirtazapine (Remeron) 7.5 mg BEDTIME ORAL 01/22/20 21:00 02/12/20 22:29 Nitroglycerin (Ntg) 0.4 mg Q5M PRN SL Prn Chest Pain 01/22/20 16:50 02/16/20 11:44 01/27/20 15:15 Ondansetron HCl (Zofran) 4 mg Q6H PRN IVP Nausea & Vomiting 01/22/20 18:00 02/12/20 17:59 01/31/20 10:03 Polyethylene Glycol (Miralax) 17 gm DAILYPRN PRN ORAL Constipation 01/23/20 15:45 02/12/20 15:44 Promethazine HCl/ Codeine (Phenergan with Codeine) 5 ml Q4H PRN ORAL For Cough 01/22/20 19:45 02/12/20 15:44 01/26/20 13:18 Theophylline (Jose-Dur) 100 mg EVERY 12 HOURS ORAL 01/22/20 21:00 02/13/20 08:59 01/31/20 20:31 Richard Hood MD Feb 01, 2020 08:02
[2020-02-01 08:24] LABS: BASOPHILS % (AUTO) 0.8 % (0.0-2.0); HEMATOCRIT 40.2 % (42.0-52.0); MEAN CORPUSCULAR VOLUME 89 FL (80-99); MONOCYTES % (AUTO) 5.8 % (1.0-10.0); NEUTROPHILS % (AUTO) 64.5 % (45.0-75.0); PLATELET COUNT 269 K/UL (150-450); RED CELL DISTRIBUTION WIDTH 11.9 % (11.6-14.8); WHITE BLOOD COUNT 7.8 K/UL (4.8-10.8)
[2020-02-01 08:33] LABS: ANION GAP 10 mmol/L (5-15); BLOOD UREA NITROGEN 22 mg/dL (7-18); CALCIUM 9.6 MG/DL (8.5-10.1); CARBON DIOXIDE 27 MMOL/L (21-32); CHLORIDE 99 MMOL/L (98-107); CREATININE 1.2 MG/DL (0.55-1.30); SODIUM 135 MMOL/L (136-145)
[2020-02-01] MEDS: BuPROPion SR 150mg tab ORAL SCH ×2 (08:57→21:00)
[2020-02-01] MEDS: Theophylline ER 100mg ORAL SCH ×2 (08:57→22:13)
[2020-02-01] MEDS: Aspirin EC 81mg tab ORAL SCH (08:57)
[2020-02-01] MEDS: Metoprolol Succinate XL 50mg tab ORAL SCH ×2 (08:58→22:21)
[2020-02-01] MEDS: Heparin 5000 units/ml inj SUBQ SCH ×2 (08:59→22:13)
--- NOTE | 2020-02-01 09:09 | General Progress Note ---
Assessment/Plan Problem List: (1) Diabetes ICD Codes: E11.9 - Type 2 diabetes mellitus without complications SNOMED: 10027096 (2) Hypothyroid ICD Codes: E03.9 - Hypothyroidism, unspecified SNOMED: 50175672 (3) Chest pain ICD Codes: R07.9 - Chest pain, unspecified SNOMED: 59371917 Status: stable, progressing Assessment/Plan: o2 pulm tx prn pain control cbc bmp am dc plan snf Subjective Constitutional: Reports: weakness Allergies: Coded Allergies: No Known Allergies (Unverified , 12/08/19) All Systems: reviewed and negative except above Subjective sleepy calm Objective Last 24 Hour Vital Signs Date Time Temp Pulse Resp B/P (MAP) Pulse Ox O2 Delivery O2 Flow Rate FiO2 02/01/20 08:58 80 122/71 02/01/20 08:57 122/71 02/01/20 04:00 98.4 80 20 110/71 (84) 98 02/01/20 00:00 98.4 70 19 118/72 (87) 99 01/31/20 21:00 Room Air Room Air 01/31/20 20:31 86 125/81 01/31/20 20:00 98.0 75 19 108/61 (77) 98 01/31/20 17:04 124/68 01/31/20 16:00 98.0 75 18 124/68 (86) 97 01/31/20 14:50 97.7 01/31/20 12:10 124/78 01/31/20 12:00 97.7 74 18 124/78 (93) 97 Intake and Output 01/31/20 02/01/20 19:00 07:00 Intake Total 1200 ml 890 ml Balance 1200 ml 890 ml Intake Oral 1200 ml 890 ml # Voids 3 3 Laboratory Tests 02/01/20 06:40: White Blood Count 7.8, Red Blood Count 4.50L, Hemoglobin 14.0L, Hematocrit 40.2L , Mean Corpuscular Volume 89, Mean Corpuscular Hemoglobin 31.0, Mean Corpuscular Hemoglobin Concent 34.7, Red Cell Distribution Width 11.9, Platelet Count 269, Mean Platelet Volume 6.0L, Neutrophils (%) (Auto) 64.5, Lymphocytes ( %) (Auto) 25.0, Monocytes (%) (Auto) 5.8, Eosinophils (%) (Auto) 4.0H, Basophils (%) (Auto) 0.8 02/01/20 07:15: Sodium Level 135L, Potassium Level 4.0, Chloride Level 99, Carbon Dioxide Level 27, Anion Gap 10, Blood Urea Nitrogen 22H, Creatinine 1.2, Estimat Glomerular Filtration Rate > 60, Glucose Level 299H, Calcium Level 9.6 Height (Feet): 5 Height (Inches): 4.00 Weight (Pounds): 249 General Appearance: lethargic EENT: normal ENT inspection Neck: normal alignment Cardiovascular: normal peripheral pulses, normal rate, regular rhythm Respiratory/Chest: chest wall non-tender, lungs clear, normal breath sounds Abdomen: normal bowel sounds, non tender, soft Extremities: normal inspection Edema: no edema noted Arm (L), no edema noted Arm (R), no edema noted Leg (L), no edema noted Leg (R), no edema noted Pedal (L), no edema noted Pedal (R), no edema noted Generalized Neurologic: motor weakness Skin: normal pigmentation, warm/dry Objective sl chest pain Fermín Griggs DO Feb 01, 2020 09:09
--- NOTE | 2020-02-01 12:20 | Infectious Diseases Prog Note ---
Assessment/Plan Assessment/Plan ASSESSMENT: The patient is a 54-year-old male with: Shortness of breath Afebrile Elevated white blood cells Leukopenia Covid-19 : Negative History of CHF. istory of CAD History of hypothyroidism. History of hypertension. History of chronic obstructive pulmonary disease. Liver cirrhosis. History of drug abuse in the past. GERD PLAN: off of AB R x 02/19 Sp doxycycline and Rocephin day # 03/03 Monitor CBC. Monitor BMP Monitor chest x-ray. ELBERT RN Subjective Allergies: Coded Allergies: No Known Allergies (Unverified , 12/08/19) Subjective afebrile comfortable Objective Vital Signs Last 24 Hour Vital Signs Date Time Temp Pulse Resp B/P (MAP) Pulse Ox O2 Delivery O2 Flow Rate FiO2 02/01/20 12:06 122/71 02/01/20 09:00 Room Air Room Air 02/01/20 08:58 80 122/71 02/01/20 08:57 122/71 02/01/20 08:00 98.2 80 18 122/71 (88) 95 02/01/20 04:00 98.4 80 20 110/71 (84) 98 02/01/20 00:00 98.4 70 19 118/72 (87) 99 01/31/20 21:00 Room Air Room Air 01/31/20 20:31 86 125/81 01/31/20 20:00 98.0 75 19 108/61 (77) 98 01/31/20 17:04 124/68 01/31/20 16:00 98.0 75 18 124/68 (86) 97 01/31/20 14:50 97.7 Height (Feet): 5 Height (Inches): 4.00 Weight (Pounds): 250 HEENT: mucous membranes moist Respiratory/Chest: no accessory muscle use Cardiovascular: regular rhythm Abdomen: non distended Laboratory Tests Test 02/01/20 06:40 02/01/20 07:15 White Blood Count 7.8 K/UL (4.8-10.8) Red Blood Count 4.50 M/UL (4.70-6.10) L Hemoglobin 14.0 G/DL (14.2-18.0) L Hematocrit 40.2 % (42.0-52.0) L Mean Corpuscular Volume 89 FL (80-99) Mean Corpuscular Hemoglobin 31.0 PG (27.0-31.0) Mean Corpuscular Hemoglobin Concent 34.7 G/DL (32.0-36.0) Red Cell Distribution Width 11.9 % (11.6-14.8) Platelet Count 269 K/UL (150-450) Mean Platelet Volume 6.0 FL (6.5-10.1) L Neutrophils (%) (Auto) 64.5 % (45.0-75.0) Lymphocytes (%) (Auto) 25.0 % (20.0-45.0) Monocytes (%) (Auto) 5.8 % (1.0-10.0) Eosinophils (%) (Auto) 4.0 % (0.0-3.0) H Basophils (%) (Auto) 0.8 % (0.0-2.0) Sodium Level 135 MMOL/L (136-145) L Potassium Level 4.0 MMOL/L (3.5-5.1) Chloride Level 99 MMOL/L (98-107) Carbon Dioxide Level 27 MMOL/L (21-32) Anion Gap 10 mmol/L (5-15) Blood Urea Nitrogen 22 mg/dL (7-18) H Creatinine 1.2 MG/DL (0.55-1.30) Estimat Glomerular Filtration Rate > 60 mL/min (>60) Glucose Level 299 MG/DL (74-106) H Calcium Level 9.6 MG/DL (8.5-10.1) Current Medications Medications (Trade) Dose Ordered Sig/Rodney Route PRN Reason Start Time Stop Time Status Last Admin Dose Admin Acetaminophen (Tylenol) 650 mg Q4H PRN ORAL Mild Pain/Temp > 100.5 01/26/20 01:00 02/12/20 16:59 01/26/20 18:50 Acetaminophen/ Hydrocodone Bitart (Bridgeton 5/325) 1 tab Q6H PRN ORAL Severe Pain (Pain Scale 7-10) 01/31/20 17:00 02/07/20 16:59 Aspirin (Ecotrin) 81 mg DAILY ORAL 01/23/20 09:00 02/28/20 08:59 02/01/20 08:57 Bupropion HCl (Wellbutrin SR) 150 mg EVERY 12 HOURS ORAL 01/22/20 21:00 02/13/20 08:59 02/01/20 08:57 Clopidogrel Bisulfate (Plavix) 75 mg DAILY ORAL 01/23/20 09:00 02/13/20 08:59 02/01/20 08:57 Dextrose (Dextrose 50%) 25 ml Q30M PRN IV Hypoglycemia 01/22/20 17:00 04/18/20 18:59 Dextrose (Dextrose 50%) 50 ml Q30M PRN IV Hypoglycemia 01/22/20 17:00 04/18/20 18:59 Gabapentin (Neurontin) 300 mg BEDTIME ORAL 01/22/20 21:00 02/12/20 22:29 01/31/20 20:31 Heparin Sodium (Porcine) (Heparin 5000 units/ml) 5,000 units EVERY 12 HOURS SUBQ 01/22/20 21:00 02/28/20 08:59 02/01/20 08:59 Ibuprofen (Motrin) 600 mg TIDPRN PRN ORAL chest pain not relievd by nt 01/28/20 17:00 02/27/20 16:59 Insulin Aspart (NovoLOG) BEFORE MEALS AND HS SUBQ 01/22/20 21:00 04/18/20 20:59 02/01/20 12:06 Isosorbide Dinitrate (Isordil) 10 mg TID ORAL 01/22/20 18:00 02/13/20 17:59 02/01/20 12:06 Loperamide HCl (Imodium) 4 mg Q6H PRN ORAL DIARRHEA 01/23/20 11:00 02/22/20 10:59 Metoprolol Succinate (Toprol XL) 50 mg Q12HR ORAL 01/22/20 21:00 04/17/20 19:29 02/01/20 08:58 Mirtazapine (Remeron) 7.5 mg BEDTIME ORAL 01/22/20 21:00 02/12/20 22:29 Nitroglycerin (Ntg) 0.4 mg Q5M PRN SL Prn Chest Pain 01/22/20 16:50 02/16/20 11:44 01/27/20 15:15 Ondansetron HCl (Zofran) 4 mg Q6H PRN IVP Nausea & Vomiting 01/22/20 18:00 02/12/20 17:59 01/31/20 10:03 Polyethylene Glycol (Miralax) 17 gm DAILYPRN PRN ORAL Constipation 01/23/20 15:45 02/12/20 15:44 Promethazine HCl/ Codeine (Phenergan with Codeine) 5 ml Q4H PRN ORAL For Cough 01/22/20 19:45 02/12/20 15:44 01/26/20 13:18 Theophylline (Jose-Dur) 100 mg EVERY 12 HOURS ORAL 01/22/20 21:00 02/13/20 08:59 02/01/20 08:57 Berry Taylor MD Feb 01, 2020 12:20
--- NOTE | 2020-02-01 18:56 | Cardiology Progress Note ---
Assessment/Plan Problem List: (1) Chest pain (2) Dizziness (3) Diabetes (4) HTN (hypertension) Status: stable, progressing Status Narrative Chest pain - Known CAD w/ hx of CABG,PCI. He is stable. CP likely noncardiac, as no objective evidence for ischemia Dizziness - ? orthostasis, ? vertigo Assessment/Plan Continue asa, b shi, statin for CAD Check orthostatic VS to determine if ortho hypotension causing dizziness. dc plan per primary MD Subjective ROS Limited/Unobtainable: No Subjective Cardiology for Dr. Guthrie Mr. Falk c/o intermittent CP and also reports dizziness when walking to bathroom Objective Last 24 Hour Vital Signs Date Time Temp Pulse Resp B/P (MAP) Pulse Ox O2 Delivery O2 Flow Rate FiO2 02/01/20 17:54 114/65 02/01/20 16:00 99.0 66 16 114/65 (81) 94 02/01/20 12:06 122/71 02/01/20 12:00 98.6 74 18 119/60 (79) 95 02/01/20 09:00 Room Air Room Air 02/01/20 08:58 80 122/71 02/01/20 08:57 122/71 02/01/20 08:00 98.2 80 18 122/71 (88) 95 02/01/20 04:00 98.4 80 20 110/71 (84) 98 02/01/20 00:00 98.4 70 19 118/72 (87) 99 01/31/20 21:00 Room Air Room Air 01/31/20 20:31 86 125/81 01/31/20 20:00 98.0 75 19 108/61 (77) 98 General Appearance: WD/WN, no apparent distress, alert EENT: PERRL/EOMI Neck: non-tender, no JVD Rhythm: NSR Cardiovascular: normal rate, regular rhythm, no gallop/murmur Respiratory/Chest: lungs clear, other - multiple tatoos over back, chest Abdomen: non tender, soft Extremities: non-tender, no swelling Neurologic: alert, oriented x 3 Intake and Output 01/31/20 02/01/20 19:00 07:00 Intake Total 1200 ml 890 ml Balance 1200 ml 890 ml Intake Oral 1200 ml 890 ml # Voids 3 3 Laboratory Tests Test 4/4/20 06:40 02/01/20 07:15 White Blood Count 7.8 K/UL (4.8-10.8) Red Blood Count 4.50 M/UL (4.70-6.10) L Hemoglobin 14.0 G/DL (14.2-18.0) L Hematocrit 40.2 % (42.0-52.0) L Mean Corpuscular Volume 89 FL (80-99) Mean Corpuscular Hemoglobin 31.0 PG (27.0-31.0) Mean Corpuscular Hemoglobin Concent 34.7 G/DL (32.0-36.0) Red Cell Distribution Width 11.9 % (11.6-14.8) Platelet Count 269 K/UL (150-450) Mean Platelet Volume 6.0 FL (6.5-10.1) L Neutrophils (%) (Auto) 64.5 % (45.0-75.0) Lymphocytes (%) (Auto) 25.0 % (20.0-45.0) Monocytes (%) (Auto) 5.8 % (1.0-10.0) Eosinophils (%) (Auto) 4.0 % (0.0-3.0) H Basophils (%) (Auto) 0.8 % (0.0-2.0) Sodium Level 135 MMOL/L (136-145) L Potassium Level 4.0 MMOL/L (3.5-5.1) Chloride Level 99 MMOL/L (98-107) Carbon Dioxide Level 27 MMOL/L (21-32) Anion Gap 10 mmol/L (5-15) Blood Urea Nitrogen 22 mg/dL (7-18) H Creatinine 1.2 MG/DL (0.55-1.30) Estimat Glomerular Filtration Rate > 60 mL/min (>60) Glucose Level 299 MG/DL (74-106) H Calcium Level 9.6 MG/DL (8.5-10.1) Florina Hawkins MD Feb 01, 2020 18:56
[2020-02-02] VITALS (8 sets, daily range): BP systolic 99–136; BP diastolic 63–89
[2020-02-02 05:49] LABS: ANION GAP 9 mmol/L (5-15); BLOOD UREA NITROGEN 20 mg/dL (7-18); CALCIUM 9.2 MG/DL (8.5-10.1); CARBON DIOXIDE 25 MMOL/L (21-32); CHLORIDE 99 MMOL/L (98-107); SODIUM 133 MMOL/L (136-145)
[2020-02-02 05:51] LABS: BASOPHILS % (AUTO) 1.2 % (0.0-2.0); EOSINOPHILS % (AUTO) 3.2 % (0.0-3.0); HEMATOCRIT 42.1 % (42.0-52.0); HEMOGLOBIN 14.7 G/DL (14.2-18.0); LYMPHOCYTES % (AUTO) 23.9 % (20.0-45.0); MEAN CORPUSCULAR VOLUME 89 FL (80-99); MONOCYTES % (AUTO) 7.5 % (1.0-10.0); NEUTROPHILS % (AUTO) 64.1 % (45.0-75.0); PLATELET COUNT 321 K/UL (150-450); RED BLOOD COUNT 4.71 M/UL (4.70-6.10); RED CELL DISTRIBUTION WIDTH 12.2 % (11.6-14.8); WHITE BLOOD COUNT 9.2 K/UL (4.8-10.8)
[2020-02-02] MEDS: NovoLOG Insulin Flexpen SUBQ SCH ×4 (06:41→20:16)
[2020-02-02] MEDS: BuPROPion SR 150mg tab ORAL SCH ×2 (09:00→20:17)
--- NOTE | 2020-02-02 09:10 | General Progress Note ---
Assessment/Plan Problem List: (1) Diabetes ICD Codes: E11.9 - Type 2 diabetes mellitus without complications SNOMED: 17362197 (2) Hypothyroid ICD Codes: E03.9 - Hypothyroidism, unspecified SNOMED: 76787102 (3) Chest pain ICD Codes: R07.9 - Chest pain, unspecified SNOMED: 12889845 Status: stable, progressing Assessment/Plan: o2 pulm tx prn pain control dc plan snf Subjective Constitutional: Reports: weakness Allergies: Coded Allergies: No Known Allergies (Unverified , 12/08/19) All Systems: reviewed and negative except above Subjective sleepy calm Objective Last 24 Hour Vital Signs Date Time Temp Pulse Resp B/P (MAP) Pulse Ox O2 Delivery O2 Flow Rate FiO2 02/02/20 08:00 98.2 87 18 99/64 (76) 93 02/02/20 04:10 93 115/89 (98) 02/02/20 04:05 93 113/89 (97) 02/02/20 04:00 97.4 91 19 107/63 (78) 98 02/02/20 00:00 98.2 88 18 120/77 (91) 97 02/01/20 22:21 88 110/66 02/01/20 22:00 88 19 110/66 (81) 96 02/01/20 21:00 Room Air Room Air 02/01/20 20:00 98.1 101 18 115/69 (84) 93 02/01/20 17:54 114/65 02/01/20 16:00 99.0 66 16 114/65 (81) 94 02/01/20 12:06 122/71 02/01/20 12:00 98.6 74 18 119/60 (79) 95 Intake and Output 02/01/20 02/02/20 19:00 07:00 Intake Total 500 ml 240 ml Balance 500 ml 240 ml Intake Oral 500 ml 240 ml # Voids 1 1 Laboratory Tests 02/02/20 04:45: White Blood Count 9.2, Red Blood Count 4.71, Hemoglobin 14.7, Hematocrit 42.1, Mean Corpuscular Volume 89, Mean Corpuscular Hemoglobin 31.2H, Mean Corpuscular Hemoglobin Concent 34.8, Red Cell Distribution Width 12.2, Platelet Count 321, Mean Platelet Volume 5.8L, Neutrophils (%) (Auto) 64.1, Lymphocytes (%) (Auto) 23.9, Monocytes (%) (Auto) 7.5, Eosinophils (%) (Auto) 3.2H, Basophils (%) (Auto ) 1.2, Sodium Level 133L, Potassium Level 4.0, Chloride Level 99, Carbon Dioxide Level 25, Anion Gap 9, Blood Urea Nitrogen 20H, Creatinine 1.0, Estimat Glomerular Filtration Rate > 60, Glucose Level 268H, Calcium Level 9.2 Height (Feet): 5 Height (Inches): 4.00 Weight (Pounds): 250 General Appearance: lethargic EENT: normal ENT inspection Neck: normal alignment Cardiovascular: normal peripheral pulses, normal rate, regular rhythm Respiratory/Chest: chest wall non-tender, lungs clear, normal breath sounds Abdomen: normal bowel sounds, non tender, soft Extremities: normal inspection Edema: no edema noted Arm (L), no edema noted Arm (R), no edema noted Leg (L), no edema noted Leg (R), no edema noted Pedal (L), no edema noted Pedal (R), no edema noted Generalized Neurologic: motor weakness Skin: normal pigmentation, warm/dry Objective sl chest pain Fermín Griggs DO Feb 02, 2020 09:10
[2020-02-02] MEDS: Metoprolol Succinate XL 50mg tab ORAL SCH ×2 (09:23→20:15)
[2020-02-02] MEDS: Theophylline ER 100mg ORAL SCH ×2 (09:23→20:14)
[2020-02-02] MEDS: Aspirin EC 81mg tab ORAL SCH (09:23)
[2020-02-02] MEDS: Heparin 5000 units/ml inj SUBQ SCH ×2 (09:24→20:16)
--- NOTE | 2020-02-02 13:10 | General Progress Note ---
Assessment/Plan Assessment/Plan: (1) Lumbar degenerative disk disease (2) Lumbar radiculopathy (3) Lumbar spondylosis (4) H/o polysubstance abuse Patient will be discontinued off [place] and Ibuprofen We will start Morphine 7.5mg PO 1 tab Q4H PRN severe pain. D/w Dr. Bull and he concurred. Subjective Date patient seen: Feb 02, 2020 Time patient seen: 12:30 - pm Allergies: Coded Allergies: No Known Allergies (Unverified , 12/08/19) Subjective Constitutional: Reports: no symptoms HEENT: Reports: no symptoms Cardiovascular: Reports: no symptoms Respiratory: Reports: no symptoms Gastrointestinal/Abdominal: Reports: no symptoms Genitourinary: Reports: no symptoms Neurologic/Psychiatric: Reports: no symptoms Endocrine: Reports: no symptoms Hematologic/Lymphatic: Reports: no symptoms Subjective Patient in bed the morphine was stopped and he was started on [place] and Ibuprofen with minimal relief. Objective Last 24 Hour Vital Signs Date Time Temp Pulse Resp B/P (MAP) Pulse Ox O2 Delivery O2 Flow Rate FiO2 02/02/20 12:00 97.9 69 18 136/81 (99) 94 02/02/20 09:23 87 99/64 02/02/20 09:23 99/64 02/02/20 09:00 Room Air Room Air 02/02/20 09:00 91 93 93 02/02/20 08:00 98.2 87 18 99/64 (76) 93 02/02/20 04:10 93 115/89 (98) 02/02/20 04:05 93 113/89 (97) 02/02/20 04:00 97.4 91 19 107/63 (78) 98 02/02/20 00:00 98.2 88 18 120/77 (91) 97 02/01/20 22:21 88 110/66 02/01/20 22:00 88 19 110/66 (81) 96 02/01/20 21:00 Room Air Room Air 02/01/20 20:00 98.1 101 18 115/69 (84) 93 02/01/20 17:54 114/65 02/01/20 16:00 99.0 66 16 114/65 (81) 94 Intake and Output 02/01/20 02/02/20 19:00 07:00 Intake Total 500 ml 240 ml Balance 500 ml 240 ml Intake Oral 500 ml 240 ml # Voids 1 1 Laboratory Tests 02/02/20 04:45: White Blood Count 9.2, Red Blood Count 4.71, Hemoglobin 14.7, Hematocrit 42.1, Mean Corpuscular Volume 89, Mean Corpuscular Hemoglobin 31.2H, Mean Corpuscular Hemoglobin Concent 34.8, Red Cell Distribution Width 12.2, Platelet Count 321, Mean Platelet Volume 5.8L, Neutrophils (%) (Auto) 64.1, Lymphocytes (%) (Auto) 23.9, Monocytes (%) (Auto) 7.5, Eosinophils (%) (Auto) 3.2H, Basophils (%) (Auto ) 1.2, Sodium Level 133L, Potassium Level 4.0, Chloride Level 99, Carbon Dioxide Level 25, Anion Gap 9, Blood Urea Nitrogen 20H, Creatinine 1.0, Estimat Glomerular Filtration Rate > 60, Glucose Level 268H, Calcium Level 9.2 Height (Feet): 5 Height (Inches): 4.00 Weight (Pounds): 246 Objective General Appearance: no apparent distress, alert EENT: PERRL/EOMI, normal ENT inspection Neck: non-tender, normal alignment Cardiovascular: normal rate, regular rhythm Respiratory/Chest: lungs clear, normal breath sounds Abdomen: non tender, soft Extremities: non-tender, normal inspection Edema: no edema noted Generalized Neurologic: alert, oriented x 3 Skin: warm/dry Steve Walker Feb 02, 2020 13:10
--- NOTE | 2020-02-02 18:11 | Cardiology Progress Note ---
Assessment/Plan Problem List: (1) Chest pain (2) Dizziness (3) Diabetes (4) HTN (hypertension) Status: stable, unchanged Status Narrative Chest pain - Known CAD w/ hx of CABG,PCI. He is stable. CP likely noncardiac, as no objective evidence for ischemia Dizziness - not orthostatic on exam today. Continue to monitor DM - blood sugars not controlled. Pt ordering food from outside; not following diabetic diet Assessment/Plan Continue asa, b shi, statin for CAD Would consider metformin and long-acting insulin for better glucose control Pt stable for dc from cardiac standpoint. Subjective ROS Limited/Unobtainable: No Subjective Cardiology for Dr. Guthrie Mr. Falk has no new c/o. Objective Last 24 Hour Vital Signs Date Time Temp Pulse Resp B/P (MAP) Pulse Ox O2 Delivery O2 Flow Rate FiO2 02/02/20 17:22 123/64 02/02/20 16:00 98.3 85 18 123/64 (83) 95 02/02/20 13:11 136/81 02/02/20 12:00 97.9 69 18 136/81 (99) 94 02/02/20 09:23 87 99/64 02/02/20 09:23 99/64 02/02/20 09:00 Room Air Room Air 02/02/20 09:00 91 93 93 02/02/20 08:00 98.2 87 18 99/64 (76) 93 02/02/20 04:10 93 115/89 (98) 02/02/20 04:05 93 113/89 (97) 02/02/20 04:00 97.4 91 19 107/63 (78) 98 02/02/20 00:00 98.2 88 18 120/77 (91) 97 02/01/20 22:21 88 110/66 02/01/20 22:00 88 19 110/66 (81) 96 02/01/20 21:00 Room Air Room Air 02/01/20 20:00 98.1 101 18 115/69 (84) 93 General Appearance: WD/WN, no apparent distress, alert EENT: PERRL/EOMI Neck: non-tender, supple, no JVD Rhythm: NSR Cardiovascular: normal rate, regular rhythm, no gallop/murmur Respiratory/Chest: lungs clear Abdomen: non tender, soft, other - obese Extremities: no swelling Intake and Output 02/01/20 02/02/20 19:00 07:00 Intake Total 500 ml 240 ml Balance 500 ml 240 ml Intake Oral 500 ml 240 ml # Voids 1 1 Laboratory Tests Test 02/02/20 04:45 White Blood Count 9.2 K/UL (4.8-10.8) Red Blood Count 4.71 M/UL (4.70-6.10) Hemoglobin 14.7 G/DL (14.2-18.0) Hematocrit 42.1 % (42.0-52.0) Mean Corpuscular Volume 89 FL (80-99) Mean Corpuscular Hemoglobin 31.2 PG (27.0-31.0) H Mean Corpuscular Hemoglobin Concent 34.8 G/DL (32.0-36.0) Red Cell Distribution Width 12.2 % (11.6-14.8) Platelet Count 321 K/UL (150-450) Mean Platelet Volume 5.8 FL (6.5-10.1) L Neutrophils (%) (Auto) 64.1 % (45.0-75.0) Lymphocytes (%) (Auto) 23.9 % (20.0-45.0) Monocytes (%) (Auto) 7.5 % (1.0-10.0) Eosinophils (%) (Auto) 3.2 % (0.0-3.0) H Basophils (%) (Auto) 1.2 % (0.0-2.0) Sodium Level 133 MMOL/L (136-145) L Potassium Level 4.0 MMOL/L (3.5-5.1) Chloride Level 99 MMOL/L (98-107) Carbon Dioxide Level 25 MMOL/L (21-32) Anion Gap 9 mmol/L (5-15) Blood Urea Nitrogen 20 mg/dL (7-18) H Creatinine 1.0 MG/DL (0.55-1.30) Estimat Glomerular Filtration Rate > 60 mL/min (>60) Glucose Level 268 MG/DL (74-106) H Calcium Level 9.2 MG/DL (8.5-10.1) Florina Hawkins MD Feb 02, 2020 18:11
[2020-02-03] VITALS: BP 123/64
[2020-02-03 04:00] VITALS: BP_SYST 129; BP_SYST 132; BP_DIAS 56; BP_DIAS 76
[2020-02-03] MEDS: NovoLOG Insulin Flexpen SUBQ SCH ×4 (06:14→20:23)
[2020-02-03 08:00] VITALS: BP 127/73
[2020-02-03] MEDS: Theophylline ER 100mg ORAL SCH ×2 (08:56→20:16)
[2020-02-03] MEDS: BuPROPion SR 150mg tab ORAL SCH ×2 (08:56→21:00)
[2020-02-03] MEDS: Aspirin EC 81mg tab ORAL SCH (08:56)
[2020-02-03] MEDS: Metoprolol Succinate XL 50mg tab ORAL SCH ×2 (08:57→20:16)
[2020-02-03] MEDS: Heparin 5000 units/ml inj SUBQ SCH ×2 (09:00→20:17)
--- NOTE | 2020-02-03 09:18 | General Progress Note ---
Assessment/Plan Problem List: (1) Diabetes ICD Codes: E11.9 - Type 2 diabetes mellitus without complications SNOMED: 69336384 (2) Hypothyroid ICD Codes: E03.9 - Hypothyroidism, unspecified SNOMED: 60582057 (3) Chest pain ICD Codes: R07.9 - Chest pain, unspecified SNOMED: 73952771 Status: stable, progressing Assessment/Plan: o2 pulm tx prn pain control dc to snf if clear Subjective Constitutional: Reports: weakness Allergies: Coded Allergies: No Known Allergies (Unverified , 12/08/19) All Systems: reviewed and negative except above Subjective sleepy calm Objective Last 24 Hour Vital Signs Date Time Temp Pulse Resp B/P (MAP) Pulse Ox O2 Delivery O2 Flow Rate FiO2 02/03/20 08:57 81 127/73 02/03/20 08:56 127/73 02/03/20 08:00 97.7 81 20 127/73 (91) 90 02/03/20 08:00 81 82 81 02/03/20 04:00 96.5 79 18 132/76 (94) 96 02/03/20 00:00 97.8 84 18 123/64 (83) 96 02/02/20 21:00 Room Air Room Air 02/02/20 20:15 88 131/70 02/02/20 20:00 98.4 88 18 131/70 (90) 96 02/02/20 17:22 123/64 02/02/20 16:00 98.3 85 18 123/64 (83) 95 02/02/20 13:11 136/81 02/02/20 12:00 97.9 69 18 136/81 (99) 94 02/02/20 09:23 87 99/64 02/02/20 09:23 99/64 Intake and Output 02/02/20 02/03/20 19:00 07:00 Intake Total 400 ml Balance 400 ml Intake Oral 400 ml # Voids 3 2 # Bowel Movements 1 Height (Feet): 5 Height (Inches): 4.00 Weight (Pounds): 246 General Appearance: lethargic EENT: normal ENT inspection Neck: normal alignment Cardiovascular: normal peripheral pulses, normal rate, regular rhythm Respiratory/Chest: chest wall non-tender, lungs clear, normal breath sounds Abdomen: normal bowel sounds, non tender, soft Extremities: normal inspection Edema: no edema noted Arm (L), no edema noted Arm (R), no edema noted Leg (L), no edema noted Leg (R), no edema noted Pedal (L), no edema noted Pedal (R), no edema noted Generalized Neurologic: motor weakness Skin: normal pigmentation, warm/dry Objective sl chest pain Fermín Griggs DO Feb 03, 2020 09:18
[2020-02-03 11:40] VITALS: BP 131/76
--- NOTE | 2020-02-03 11:44 | Pulmonology Progress Note ---
Assessment/Plan Problems: (1) Dizziness (2) Acute bronchitis (3) Viral syndrome (4) Mild diastolic dysfunction (5) Cardiac left ventricular ejection fraction greater than 40 percent (6) HTN (hypertension) (7) Hypothyroid (8) Diabetes Assessment/Plan no new complains pt is still dizzy sputum culture and blood cultures are negative COVID-19 virus negative Pain consult requested wll reviewed dvt prophylaxis. Subjective ROS Limited/Unobtainable: No Interval Events: late note for 02/01 Constitutional: Reports: no symptoms HEENT: Repors: no symptoms Allergies: Coded Allergies: No Known Allergies (Unverified , 12/08/19) Objective Last 24 Hour Vital Signs Date Time Temp Pulse Resp B/P (MAP) Pulse Ox O2 Delivery O2 Flow Rate FiO2 02/03/20 11:40 97.6 84 20 131/76 (94) 93 02/03/20 09:00 Room Air Room Air 02/03/20 08:57 81 127/73 02/03/20 08:56 127/73 02/03/20 08:00 97.7 81 20 127/73 (91) 90 02/03/20 08:00 81 82 81 02/03/20 04:00 96.5 79 18 132/76 (94) 96 02/03/20 00:00 97.8 84 18 123/64 (83) 96 02/02/20 21:00 Room Air Room Air 02/02/20 20:15 88 131/70 02/02/20 20:00 98.4 88 18 131/70 (90) 96 02/02/20 17:22 123/64 02/02/20 16:00 98.3 85 18 123/64 (83) 95 02/02/20 13:11 136/81 02/02/20 12:00 97.9 69 18 136/81 (99) 94 Intake and Output 02/02/20 02/03/20 19:00 07:00 Intake Total 400 ml Balance 400 ml Intake Oral 400 ml # Voids 3 2 # Bowel Movements 1 Objective General Appearance: WD/WN HEENT: normocephalic, atraumatic Respiratory/Chest: chest wall non-tender, lungs clear Breasts: no masses Cardiovascular: normal peripheral pulses Abdomen: normal bowel sounds, soft, non tender Genitourinary: normal external genitalia Extremities: no cyanosis Skin: no rash 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 Current Medications Medications (Trade) Dose Ordered Sig/Rodney Route PRN Reason Start Time Stop Time Status Last Admin Dose Admin Acetaminophen (Tylenol) 650 mg Q4H PRN ORAL Mild Pain/Temp > 100.5 01/26/20 01:00 02/12/20 16:59 01/26/20 18:50 Aspirin (Ecotrin) 81 mg DAILY ORAL 01/23/20 09:00 02/28/20 08:59 02/03/20 08:56 Bupropion HCl (Wellbutrin SR) 150 mg EVERY 12 HOURS ORAL 01/22/20 21:00 02/13/20 08:59 02/03/20 08:56 Clopidogrel Bisulfate (Plavix) 75 mg DAILY ORAL 01/23/20 09:00 02/13/20 08:59 02/03/20 08:56 Dextrose (Dextrose 50%) 25 ml Q30M PRN IV Hypoglycemia 01/22/20 17:00 04/18/20 18:59 Dextrose (Dextrose 50%) 50 ml Q30M PRN IV Hypoglycemia 01/22/20 17:00 04/18/20 18:59 Gabapentin (Neurontin) 300 mg BEDTIME ORAL 01/22/20 21:00 02/12/20 22:29 02/02/20 20:14 Heparin Sodium (Porcine) (Heparin 5000 units/ml) 5,000 units EVERY 12 HOURS SUBQ 01/22/20 21:00 02/28/20 08:59 02/03/20 09:00 Insulin Aspart (NovoLOG) BEFORE MEALS AND HS SUBQ 01/22/20 21:00 04/18/20 20:59 02/03/20 06:14 Isosorbide Dinitrate (Isordil) 10 mg TID ORAL 01/22/20 18:00 02/13/20 17:59 02/03/20 08:56 Loperamide HCl (Imodium) 4 mg Q6H PRN ORAL DIARRHEA 01/23/20 11:00 02/22/20 10:59 Metoprolol Succinate (Toprol XL) 50 mg Q12HR ORAL 01/22/20 21:00 04/17/20 19:29 02/03/20 08:57 Mirtazapine (Remeron) 7.5 mg BEDTIME ORAL 01/22/20 21:00 02/12/20 22:29 Morphine HCl (Morphine IR) 7.5 mg Q4H PRN ORAL severe pain 02/02/20 13:01 02/09/20 13:00 Nitroglycerin (Ntg) 0.4 mg Q5M PRN SL Prn Chest Pain 01/22/20 16:50 02/16/20 11:44 01/27/20 15:15 Ondansetron HCl (Zofran) 4 mg Q6H PRN IVP Nausea & Vomiting 01/22/20 18:00 02/12/20 17:59 02/01/20 17:54 Polyethylene Glycol (Miralax) 17 gm DAILYPRN PRN ORAL Constipation 01/23/20 15:45 02/12/20 15:44 Promethazine HCl/ Codeine (Phenergan with Codeine) 5 ml Q4H PRN ORAL For Cough 01/22/20 19:45 02/12/20 15:44 01/26/20 13:18 Theophylline (Jose-Dur) 100 mg EVERY 12 HOURS ORAL 01/22/20 21:00 02/13/20 08:59 02/03/20 08:56 Richard Hood MD Feb 03, 2020 11:44
[2020-02-03 16:00] VITALS: BP 120/80
--- NOTE | 2020-02-03 16:10 | General Progress Note ---
Assessment/Plan Assessment/Plan: (1) Lumbar degenerative disk disease (2) Lumbar radiculopathy (3) Lumbar spondylosis (4) H/o polysubstance abuse Patient will be continued on Morphine. D/w Dr. Bull and he concurred. Subjective Date patient seen: Feb 03, 2020 Time patient seen: 03:45 - pm Allergies: Coded Allergies: No Known Allergies (Unverified , 12/08/19) Subjective Constitutional: Reports: no symptoms HEENT: Reports: no symptoms Cardiovascular: Reports: no symptoms Respiratory: Reports: no symptoms Gastrointestinal/Abdominal: Reports: no symptoms Genitourinary: Reports: no symptoms Neurologic/Psychiatric: Reports: no symptoms Endocrine: Reports: no symptoms Hematologic/Lymphatic: Reports: no symptoms Subjective Patient doing well and pain is tolerated on the Morphine as needed He has no new complains at this time Objective Last 24 Hour Vital Signs Date Time Temp Pulse Resp B/P (MAP) Pulse Ox O2 Delivery O2 Flow Rate FiO2 02/03/20 13:09 131/76 02/03/20 11:40 97.6 84 20 131/76 (94) 93 02/03/20 09:00 Room Air Room Air 02/03/20 08:57 81 127/73 02/03/20 08:56 127/73 02/03/20 08:00 97.7 81 20 127/73 (91) 90 02/03/20 08:00 81 82 81 02/03/20 04:00 96.5 79 18 132/76 (94) 96 02/03/20 00:00 97.8 84 18 123/64 (83) 96 02/02/20 21:00 Room Air Room Air 02/02/20 20:15 88 131/70 02/02/20 20:00 98.4 88 18 131/70 (90) 96 02/02/20 17:22 123/64 Intake and Output 02/02/20 02/03/20 19:00 07:00 Intake Total 400 ml Balance 400 ml Intake Oral 400 ml # Voids 3 2 # Bowel Movements 1 Height (Feet): 5 Height (Inches): 4.00 Weight (Pounds): 250 Objective General Appearance: no apparent distress, alert EENT: PERRL/EOMI, normal ENT inspection Neck: non-tender, normal alignment Cardiovascular: normal rate, regular rhythm Respiratory/Chest: lungs clear, normal breath sounds Abdomen: non tender, soft Extremities: non-tender, normal inspection Edema: no edema noted Generalized Neurologic: alert, oriented x 3 Skin: warm/dry Steve Walker Feb 03, 2020 16:10
--- NOTE | 2020-02-03 16:23 | Infectious Diseases Prog Note ---
Assessment/Plan Assessment/Plan ASSESSMENT: The patient is a 54-year-old male with: Shortness of breath Afebrile Elevated white blood cells Leukopenia Covid-19 : Negative History of CHF. History of CAD History of hypothyroidism. History of hypertension. History of chronic obstructive pulmonary disease. Liver cirrhosis. History of drug abuse in the past. GERD PLAN: off of AB R x 02/19 Sp doxycycline and Rocephin day # 03/03 Monitor CBC. Monitor BMP Monitor chest x-ray. ELBERT RN Subjective Allergies: Coded Allergies: No Known Allergies (Unverified , 12/08/19) Subjective Afebrile. RA. No leukocytosis no cough or chills Objective Vital Signs Last 24 Hour Vital Signs Date Time Temp Pulse Resp B/P (MAP) Pulse Ox O2 Delivery O2 Flow Rate FiO2 02/03/20 16:00 98.1 83 20 120/80 (93) 92 02/03/20 13:09 131/76 02/03/20 11:40 97.6 84 20 131/76 (94) 93 02/03/20 09:00 Room Air Room Air 02/03/20 08:57 81 127/73 02/03/20 08:56 127/73 02/03/20 08:00 97.7 81 20 127/73 (91) 90 02/03/20 08:00 81 82 81 02/03/20 04:00 96.5 79 18 132/76 (94) 96 02/03/20 00:00 97.8 84 18 123/64 (83) 96 02/02/20 21:00 Room Air Room Air 02/02/20 20:15 88 131/70 02/02/20 20:00 98.4 88 18 131/70 (90) 96 02/02/20 17:22 123/64 Height (Feet): 5 Height (Inches): 4.00 Weight (Pounds): 250 Objective Gen: NAD. well nourished. well hydrated. HEENT: anicteric sclera CV: RRR. no rubs Resp: RRR. no wheezes or crackles. unlabored Abd: soft. no TTP. nondistended. Neuro: AAO. interactive skin: warm. dry. Current Medications Medications (Trade) Dose Ordered Sig/Rodney Route PRN Reason Start Time Stop Time Status Last Admin Dose Admin Acetaminophen (Tylenol) 650 mg Q4H PRN ORAL Mild Pain/Temp > 100.5 01/26/20 01:00 02/12/20 16:59 01/26/20 18:50 Aspirin (Ecotrin) 81 mg DAILY ORAL 01/23/20 09:00 02/28/20 08:59 02/03/20 08:56 Bupropion HCl (Wellbutrin SR) 150 mg EVERY 12 HOURS ORAL 01/22/20 21:00 02/13/20 08:59 02/03/20 08:56 Clopidogrel Bisulfate (Plavix) 75 mg DAILY ORAL 01/23/20 09:00 02/13/20 08:59 02/03/20 08:56 Dextrose (Dextrose 50%) 25 ml Q30M PRN IV Hypoglycemia 01/22/20 17:00 04/18/20 18:59 Dextrose (Dextrose 50%) 50 ml Q30M PRN IV Hypoglycemia 01/22/20 17:00 04/18/20 18:59 Gabapentin (Neurontin) 300 mg BEDTIME ORAL 01/22/20 21:00 02/12/20 22:29 02/02/20 20:14 Heparin Sodium (Porcine) (Heparin 5000 units/ml) 5,000 units EVERY 12 HOURS SUBQ 01/22/20 21:00 02/28/20 08:59 02/03/20 09:00 Insulin Aspart (NovoLOG) BEFORE MEALS AND HS SUBQ 01/22/20 21:00 04/18/20 20:59 02/03/20 11:44 Isosorbide Dinitrate (Isordil) 10 mg TID ORAL 01/22/20 18:00 02/13/20 17:59 02/03/20 13:09 Loperamide HCl (Imodium) 4 mg Q6H PRN ORAL DIARRHEA 01/23/20 11:00 02/22/20 10:59 Metoprolol Succinate (Toprol XL) 50 mg Q12HR ORAL 01/22/20 21:00 04/17/20 19:29 02/03/20 08:57 Mirtazapine (Remeron) 7.5 mg BEDTIME ORAL 01/22/20 21:00 02/12/20 22:29 Morphine HCl (Morphine IR) 7.5 mg Q4H PRN ORAL severe pain 02/02/20 13:01 02/09/20 13:00 Nitroglycerin (Ntg) 0.4 mg Q5M PRN SL Prn Chest Pain 01/22/20 16:50 02/16/20 11:44 01/27/20 15:15 Ondansetron HCl (Zofran) 4 mg Q6H PRN IVP Nausea & Vomiting 01/22/20 18:00 02/12/20 17:59 02/01/20 17:54 Polyethylene Glycol (Miralax) 17 gm DAILYPRN PRN ORAL Constipation 01/23/20 15:45 02/12/20 15:44 Promethazine HCl/ Codeine (Phenergan with Codeine) 5 ml Q4H PRN ORAL For Cough 01/22/20 19:45 02/12/20 15:44 01/26/20 13:18 Theophylline (Jose-Dur) 100 mg EVERY 12 HOURS ORAL 01/22/20 21:00 02/13/20 08:59 02/03/20 08:56 Kym Hernandez MD Feb 03, 2020 16:22
--- NOTE | 2020-02-03 17:52 | Cardiology Progress Note ---
Assessment/Plan Assessment/Plan 1. Chronic recurrent chest pain, no evidence of myonecrosis. 2. Coronary artery disease status post coronary artery bypass grafting and previous stenting. 3. Obesity. 4. Possible small vessel coronary disease. 5. Diabetes mellitus poor diet complaince 6. Hypertension. co dizziness but not orthstatic off lasix for opal pst few days due ot his sx of dizziness bnp last was normal the cp pain is possibly radicular bp seem fine hr is ok mri showed pro sinusitis may be vertigo related awit neuro input was nto orthostatic when checked 2 dyas ago off iv narcotic awaits facility to accpet him sinse turning on the right side to watch tv while lying down opal pain in the left arm is better Subjective Cardiovascular: Reports: chest pain - still all the time Respiratory: Reports: shortness of breath - " so so" Gastrointestinal/Abdominal: Denies: abdominal pain Genitourinary: Denies: burning Subjective dizziness , sinse turning on the right side to watch tv while lying down opal pain in the left arm is better Objective Last 24 Hour Vital Signs Date Time Temp Pulse Resp B/P (MAP) Pulse Ox O2 Delivery O2 Flow Rate FiO2 02/03/20 17:21 120/80 02/03/20 16:00 98.1 83 20 120/80 (93) 92 02/03/20 13:09 131/76 02/03/20 11:40 97.6 84 20 131/76 (94) 93 02/03/20 09:00 Room Air Room Air 02/03/20 08:57 81 127/73 02/03/20 08:56 127/73 02/03/20 08:00 97.7 81 20 127/73 (91) 90 02/03/20 08:00 81 82 81 02/03/20 04:00 96.5 79 18 132/76 (94) 96 02/03/20 00:00 97.8 84 18 123/64 (83) 96 02/02/20 21:00 Room Air Room Air 02/02/20 20:15 88 131/70 02/02/20 20:00 98.4 88 18 131/70 (90) 96 General Appearance: no apparent distress, alert, obese Cardiovascular: normal rate Respiratory/Chest: lungs clear Abdomen: normal bowel sounds, non tender, soft Extremities: no swelling Intake and Output 02/02/20 02/03/20 19:00 07:00 Intake Total 400 ml Balance 400 ml Intake Oral 400 ml # Voids 3 2 # Bowel Movements 1 Sarkis Guthrie MD Feb 03, 2020 17:52
[2020-02-03 20:00] VITALS: BP 120/71
[2020-02-04] VITALS (8 sets, daily range): BP systolic 125–152; BP diastolic 73–100
[2020-02-04] MEDS: Nitroglycerin Subl 0.4mg tab SL PRN ×5 (03:16→08:16)
[2020-02-04] MEDS: Morphine IR 15mg tab ORAL PRN ×2 (03:31→07:44)
[2020-02-04] MEDS: NovoLOG Insulin Flexpen SUBQ SCH ×4 (05:37→20:35)
[2020-02-04 06:36] LABS: EOSINOPHILS % (AUTO) 4.4 % (0.0-3.0); HEMATOCRIT 43.6 % (42.0-52.0); LYMPHOCYTES % (AUTO) 24.9 % (20.0-45.0); MEAN CORPUSCULAR VOLUME 90 FL (80-99); MONOCYTES % (AUTO) 8.9 % (1.0-10.0); NEUTROPHILS % (AUTO) 60.9 % (45.0-75.0); PLATELET COUNT 314 K/UL (150-450); RED BLOOD COUNT 4.85 M/UL (4.70-6.10); RED CELL DISTRIBUTION WIDTH 12.2 % (11.6-14.8); WHITE BLOOD COUNT 8.9 K/UL (4.8-10.8)
[2020-02-04 06:51] LABS: ANION GAP 12 mmol/L (5-15); BLOOD UREA NITROGEN 12 mg/dL (7-18); CALCIUM 9.2 MG/DL (8.5-10.1); CARBON DIOXIDE 23 MMOL/L (21-32); CHLORIDE 98 MMOL/L (98-107); POTASSIUM 4.3 MMOL/L (3.5-5.1); SODIUM 133 MMOL/L (136-145)
[2020-02-04] MEDS: Aspirin EC 81mg tab ORAL SCH (08:48)
[2020-02-04] MEDS: BuPROPion SR 150mg tab ORAL SCH ×2 (08:48→21:00)
[2020-02-04] MEDS: Metoprolol Succinate XL 50mg tab ORAL SCH ×2 (08:49→20:34)
[2020-02-04] MEDS: Theophylline ER 100mg ORAL SCH ×2 (08:49→20:34)
[2020-02-04] MEDS: Heparin 5000 units/ml inj SUBQ SCH ×2 (08:53→20:35)
--- NOTE | 2020-02-04 12:29 | General Progress Note ---
Assessment/Plan Problem List: (1) Diabetes ICD Codes: E11.9 - Type 2 diabetes mellitus without complications SNOMED: 21515586 (2) Hypothyroid ICD Codes: E03.9 - Hypothyroidism, unspecified SNOMED: 63758713 (3) Chest pain ICD Codes: R07.9 - Chest pain, unspecified SNOMED: 52143796 Status: stable, progressing Assessment/Plan: o2 pulm tx prn pain control dc to snf if clear Subjective Constitutional: Reports: weakness Allergies: Coded Allergies: No Known Allergies (Unverified , 12/08/19) All Systems: reviewed and negative except above Subjective sleepy calm Objective Last 24 Hour Vital Signs Date Time Temp Pulse Resp B/P (MAP) Pulse Ox O2 Delivery O2 Flow Rate FiO2 02/04/20 09:00 Room Air Room Air 02/04/20 08:49 71 125/74 02/04/20 08:48 125/74 02/04/20 08:30 71 125/74 (91) 02/04/20 08:16 131/77 02/04/20 08:15 79 133/79 (97) 02/04/20 08:14 98.1 02/04/20 08:10 73 131/77 (95) 02/04/20 08:00 68 74 74 02/04/20 08:00 133/79 02/04/20 08:00 98.3 68 21 152/87 (108) 95 02/04/20 07:44 152/87 02/04/20 04:00 98.0 82 20 150/100 (117) 98 02/04/20 03:36 120/80 02/04/20 03:16 120/80 02/03/20 21:27 Room Air Room Air 02/03/20 20:16 83 120/80 02/03/20 20:00 98.1 81 17 120/71 (87) 98 02/03/20 17:21 120/80 02/03/20 16:00 98.1 83 20 120/80 (93) 92 02/03/20 13:09 131/76 Intake and Output 02/03/20 02/04/20 18:59 06:59 Intake Total 850 ml 450 ml Balance 850 ml 450 ml Intake Oral 850 ml 450 ml # Voids 3 2 # Bowel Movements 1 Laboratory Tests 02/04/20 05:35: White Blood Count 8.9, Red Blood Count 4.85, Hemoglobin 15.0, Hematocrit 43.6, Mean Corpuscular Volume 90, Mean Corpuscular Hemoglobin 31.0, Mean Corpuscular Hemoglobin Concent 34.5, Red Cell Distribution Width 12.2, Platelet Count 314, Mean Platelet Volume 5.8L, Neutrophils (%) (Auto) 60.9, Lymphocytes (%) (Auto) 24.9, Monocytes (%) (Auto) 8.9, Eosinophils (%) (Auto) 4.4H, Basophils (%) (Auto ) 1.0, Sodium Level 133L, Potassium Level 4.3, Chloride Level 98, Carbon Dioxide Level 23, Anion Gap 12, Blood Urea Nitrogen 12, Creatinine 1.0, Estimat Glomerular Filtration Rate > 60, Glucose Level 405H, Calcium Level 9.2 Height (Feet): 5 Height (Inches): 4.00 Weight (Pounds): 250 General Appearance: lethargic EENT: normal ENT inspection Neck: normal alignment Cardiovascular: normal peripheral pulses, normal rate, regular rhythm Respiratory/Chest: chest wall non-tender, lungs clear, normal breath sounds Abdomen: normal bowel sounds, non tender, soft Extremities: normal inspection Edema: no edema noted Arm (L), no edema noted Arm (R), no edema noted Leg (L), no edema noted Leg (R), no edema noted Pedal (L), no edema noted Pedal (R), no edema noted Generalized Neurologic: motor weakness Skin: normal pigmentation, warm/dry Objective sl chest pain Fermín Griggs DO Feb 04, 2020 12:29
--- NOTE | 2020-02-04 15:08 | Cardiology Progress Note ---
Assessment/Plan Assessment/Plan 1. Chronic recurrent chest pain, no evidence of myonecrosis. 2. Coronary artery disease status post coronary artery bypass grafting and previous stenting. 3. Obesity. 4. Possible small vessel coronary disease. 5. Diabetes mellitus poor diet complaince 6. Hypertension. co dizziness but not orthostatic off lasix for the pst few days due ot his sx of dizziness bnp last was normal the cp pain is possibly radicular bp seem fine hr is ok mri showed pro sinusitis may be vertigo related off iv narcotic on [facility] awaits facility to accept him d/w rn several times today sinse turning on the right side to watch tv while lying down, opal pain in the left arm is better Subjective Cardiovascular: Reports: chest pain - had cp lst ntie and this am got ntg then norcao now ok Respiratory: Reports: shortness of breath - say is usin oxygen but not have it on when i when i examined him Gastrointestinal/Abdominal: Denies: abdominal pain Genitourinary: Denies: burning Subjective dizziness , sinse turning on the right side to watch tv while lying down opal pain in the left arm is better Objective Last 24 Hour Vital Signs Date Time Temp Pulse Resp B/P (MAP) Pulse Ox O2 Delivery O2 Flow Rate FiO2 02/04/20 13:02 138/84 02/04/20 12:00 98.0 73 20 138/84 (102) 96 02/04/20 09:00 Room Air Room Air 02/04/20 08:49 71 125/74 02/04/20 08:48 125/74 02/04/20 08:30 71 125/74 (91) 02/04/20 08:16 131/77 02/04/20 08:15 79 133/79 (97) 02/04/20 08:14 98.1 02/04/20 08:10 73 131/77 (95) 02/04/20 08:00 68 74 74 02/04/20 08:00 133/79 02/04/20 08:00 98.3 68 21 152/87 (108) 95 02/04/20 07:44 152/87 02/04/20 04:00 98.0 82 20 150/100 (117) 98 02/04/20 03:36 120/80 02/04/20 03:16 120/80 02/03/20 21:27 Room Air Room Air 02/03/20 20:16 83 120/80 02/03/20 20:00 98.1 81 17 120/71 (87) 98 02/03/20 17:21 120/80 02/03/20 16:00 98.1 83 20 120/80 (93) 92 General Appearance: no apparent distress, alert Cardiovascular: normal rate Respiratory/Chest: lungs clear Abdomen: normal bowel sounds, non tender, soft Extremities: no swelling Intake and Output 02/03/20 02/04/20 19:00 07:00 Intake Total 850 ml 450 ml Balance 850 ml 450 ml Intake Oral 850 ml 450 ml # Voids 3 2 # Bowel Movements 1 Laboratory Tests Test 02/04/20 05:35 White Blood Count 8.9 K/UL (4.8-10.8) Red Blood Count 4.85 M/UL (4.70-6.10) Hemoglobin 15.0 G/DL (14.2-18.0) Hematocrit 43.6 % (42.0-52.0) Mean Corpuscular Volume 90 FL (80-99) Mean Corpuscular Hemoglobin 31.0 PG (27.0-31.0) Mean Corpuscular Hemoglobin Concent 34.5 G/DL (32.0-36.0) Red Cell Distribution Width 12.2 % (11.6-14.8) Platelet Count 314 K/UL (150-450) Mean Platelet Volume 5.8 FL (6.5-10.1) L Neutrophils (%) (Auto) 60.9 % (45.0-75.0) Lymphocytes (%) (Auto) 24.9 % (20.0-45.0) Monocytes (%) (Auto) 8.9 % (1.0-10.0) Eosinophils (%) (Auto) 4.4 % (0.0-3.0) H Basophils (%) (Auto) 1.0 % (0.0-2.0) Sodium Level 133 MMOL/L (136-145) L Potassium Level 4.3 MMOL/L (3.5-5.1) Chloride Level 98 MMOL/L (98-107) Carbon Dioxide Level 23 MMOL/L (21-32) Anion Gap 12 mmol/L (5-15) Blood Urea Nitrogen 12 mg/dL (7-18) Creatinine 1.0 MG/DL (0.55-1.30) Estimat Glomerular Filtration Rate > 60 mL/min (>60) Glucose Level 405 MG/DL (74-106) H Calcium Level 9.2 MG/DL (8.5-10.1) Sarkis Guthrie MD Feb 04, 2020 15:08
--- NOTE | 2020-02-04 16:38 | General Progress Note ---
Assessment/Plan Assessment/Plan: (1) Lumbar degenerative disk disease (2) Lumbar radiculopathy (3) Lumbar spondylosis (4) H/o polysubstance abuse Patient will be continued on Morphine. D/w Dr. Bull and he concurred. Subjective Date patient seen: Feb 04, 2020 Time patient seen: 04:30 - pm Allergies: Coded Allergies: No Known Allergies (Unverified , 12/08/19) Subjective Constitutional: Reports: no symptoms HEENT: Reports: no symptoms Cardiovascular: Reports: no symptoms Respiratory: Reports: no symptoms Gastrointestinal/Abdominal: Reports: no symptoms Genitourinary: Reports: no symptoms Neurologic/Psychiatric: Reports: no symptoms Endocrine: Reports: no symptoms Hematologic/Lymphatic: Reports: no symptoms Subjective Patient c/o pain and has used the Morphine. Was started on Ibuprofen as per strip polisher. Objective Last 24 Hour Vital Signs Date Time Temp Pulse Resp B/P (MAP) Pulse Ox O2 Delivery O2 Flow Rate FiO2 02/04/20 16:00 98.2 73 20 126/73 (90) 95 02/04/20 13:02 138/84 02/04/20 12:00 98.0 73 20 138/84 (102) 96 02/04/20 09:00 Room Air Room Air 02/04/20 08:49 71 125/74 02/04/20 08:48 125/74 02/04/20 08:30 71 125/74 (91) 02/04/20 08:16 131/77 02/04/20 08:15 79 133/79 (97) 02/04/20 08:14 98.1 02/04/20 08:10 73 131/77 (95) 02/04/20 08:00 68 74 74 02/04/20 08:00 133/79 02/04/20 08:00 98.3 68 21 152/87 (108) 95 02/04/20 07:44 152/87 02/04/20 04:00 98.0 82 20 150/100 (117) 98 02/04/20 03:36 120/80 02/04/20 03:16 120/80 02/03/20 21:27 Room Air Room Air 02/03/20 20:16 83 120/80 02/03/20 20:00 98.1 81 17 120/71 (87) 98 02/03/20 17:21 120/80 Intake and Output 02/03/20 02/04/20 19:00 07:00 Intake Total 850 ml 450 ml Balance 850 ml 450 ml Intake Oral 850 ml 450 ml # Voids 3 2 # Bowel Movements 1 Laboratory Tests 02/04/20 05:35: White Blood Count 8.9, Red Blood Count 4.85, Hemoglobin 15.0, Hematocrit 43.6, Mean Corpuscular Volume 90, Mean Corpuscular Hemoglobin 31.0, Mean Corpuscular Hemoglobin Concent 34.5, Red Cell Distribution Width 12.2, Platelet Count 314, Mean Platelet Volume 5.8L, Neutrophils (%) (Auto) 60.9, Lymphocytes (%) (Auto) 24.9, Monocytes (%) (Auto) 8.9, Eosinophils (%) (Auto) 4.4H, Basophils (%) (Auto ) 1.0, Sodium Level 133L, Potassium Level 4.3, Chloride Level 98, Carbon Dioxide Level 23, Anion Gap 12, Blood Urea Nitrogen 12, Creatinine 1.0, Estimat Glomerular Filtration Rate > 60, Glucose Level 405H, Calcium Level 9.2 Height (Feet): 5 Height (Inches): 4.00 Weight (Pounds): 250 Objective General Appearance: no apparent distress, alert EENT: PERRL/EOMI, normal ENT inspection Neck: non-tender, normal alignment Cardiovascular: normal rate, regular rhythm Respiratory/Chest: lungs clear, normal breath sounds Abdomen: non tender, soft Extremities: non-tender, normal inspection Edema: no edema noted Generalized Neurologic: alert, oriented x 3 Skin: warm/dry Steve Walker Feb 04, 2020 16:38
--- NOTE | 2020-02-04 17:37 | Pulmonology Progress Note ---
Assessment/Plan Problems: (1) Dizziness (2) Acute bronchitis (3) Viral syndrome (4) Mild diastolic dysfunction (5) Cardiac left ventricular ejection fraction greater than 40 percent (6) HTN (hypertension) (7) Hypothyroid (8) Diabetes Assessment/Plan no new complains doing better sputum culture and blood cultures are negative COVID-19 virus negative Pain consult requested wll reviewed dvt prophylaxis. Subjective ROS Limited/Unobtainable: No Allergies: Coded Allergies: No Known Allergies (Unverified , 12/08/19) Objective Last 24 Hour Vital Signs Date Time Temp Pulse Resp B/P (MAP) Pulse Ox O2 Delivery O2 Flow Rate FiO2 02/04/20 17:34 126/73 02/04/20 16:34 98.0 02/04/20 16:00 98.2 73 20 126/73 (90) 95 02/04/20 13:02 138/84 02/04/20 12:00 98.0 73 20 138/84 (102) 96 02/04/20 09:00 Room Air Room Air 02/04/20 08:49 71 125/74 02/04/20 08:48 125/74 02/04/20 08:30 71 125/74 (91) 02/04/20 08:16 131/77 02/04/20 08:15 79 133/79 (97) 02/04/20 08:14 98.1 02/04/20 08:10 73 131/77 (95) 02/04/20 08:00 68 74 74 02/04/20 08:00 133/79 02/04/20 08:00 98.3 68 21 152/87 (108) 95 02/04/20 07:44 152/87 02/04/20 04:00 98.0 82 20 150/100 (117) 98 02/04/20 03:36 120/80 02/04/20 03:16 120/80 02/03/20 21:27 Room Air Room Air 02/03/20 20:16 83 120/80 02/03/20 20:00 98.1 81 17 120/71 (87) 98 Intake and Output 02/03/20 02/04/20 19:00 07:00 Intake Total 850 ml 450 ml Balance 850 ml 450 ml Intake Oral 850 ml 450 ml # Voids 3 2 # Bowel Movements 1 Objective General Appearance: WD/WN HEENT: normocephalic, atraumatic Respiratory/Chest: chest wall non-tender, lungs clear Breasts: no masses Cardiovascular: normal peripheral pulses Abdomen: normal bowel sounds, soft, non tender Genitourinary: normal external genitalia Extremities: no cyanosis Skin: no rash 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 Laboratory Tests 02/04/20 05:35: White Blood Count 8.9, Red Blood Count 4.85, Hemoglobin 15.0, Hematocrit 43.6, Mean Corpuscular Volume 90, Mean Corpuscular Hemoglobin 31.0, Mean Corpuscular Hemoglobin Concent 34.5, Red Cell Distribution Width 12.2, Platelet Count 314, Mean Platelet Volume 5.8L, Neutrophils (%) (Auto) 60.9, Lymphocytes (%) (Auto) 24.9, Monocytes (%) (Auto) 8.9, Eosinophils (%) (Auto) 4.4H, Basophils (%) (Auto ) 1.0, Sodium Level 133L, Potassium Level 4.3, Chloride Level 98, Carbon Dioxide Level 23, Anion Gap 12, Blood Urea Nitrogen 12, Creatinine 1.0, Estimat Glomerular Filtration Rate > 60, Glucose Level 405H, Calcium Level 9.2 Current Medications Medications (Trade) Dose Ordered Sig/Rodney Route PRN Reason Start Time Stop Time Status Last Admin Dose Admin Acetaminophen (Tylenol) 650 mg Q4H PRN ORAL Mild Pain/Temp > 100.5 01/26/20 01:00 02/12/20 16:59 01/26/20 18:50 Aspirin (Ecotrin) 81 mg DAILY ORAL 01/23/20 09:00 02/28/20 08:59 02/04/20 08:48 Bupropion HCl (Wellbutrin SR) 150 mg EVERY 12 HOURS ORAL 01/22/20 21:00 02/13/20 08:59 02/04/20 08:48 Clopidogrel Bisulfate (Plavix) 75 mg DAILY ORAL 01/23/20 09:00 02/13/20 08:59 02/04/20 08:48 Dextrose (Dextrose 50%) 25 ml Q30M PRN IV Hypoglycemia 01/22/20 17:00 04/18/20 18:59 Dextrose (Dextrose 50%) 50 ml Q30M PRN IV Hypoglycemia 01/22/20 17:00 04/18/20 18:59 Gabapentin (Neurontin) 300 mg BEDTIME ORAL 01/22/20 21:00 02/12/20 22:29 02/03/20 20:16 Heparin Sodium (Porcine) (Heparin 5000 units/ml) 5,000 units EVERY 12 HOURS SUBQ 01/22/20 21:00 02/28/20 08:59 02/04/20 08:53 Ibuprofen (Advil) 400 mg THREE TIMES A DAY PRN ORAL pain 02/04/20 16:15 03/05/20 09:29 02/04/20 16:04 Insulin Aspart (NovoLOG) BEFORE MEALS AND HS SUBQ 01/22/20 21:00 04/18/20 20:59 02/04/20 16:44 Isosorbide Dinitrate (Isordil) 10 mg TID ORAL 01/22/20 18:00 02/13/20 17:59 02/04/20 17:34 Loperamide HCl (Imodium) 4 mg Q6H PRN ORAL DIARRHEA 01/23/20 11:00 02/22/20 10:59 Metoprolol Succinate (Toprol XL) 50 mg Q12HR ORAL 01/22/20 21:00 04/17/20 19:29 02/04/20 08:49 Mirtazapine (Remeron) 7.5 mg BEDTIME ORAL 01/22/20 21:00 02/12/20 22:29 Morphine HCl (Morphine IR) 7.5 mg Q4H PRN ORAL severe pain 02/02/20 13:01 02/09/20 13:00 02/04/20 07:44 Nitroglycerin (Ntg) 0.4 mg Q5M PRN SL Prn Chest Pain 01/22/20 16:50 02/16/20 11:44 02/04/20 08:16 Ondansetron HCl (Zofran) 4 mg Q6H PRN IVP Nausea & Vomiting 01/22/20 18:00 02/12/20 17:59 02/01/20 17:54 Polyethylene Glycol (Miralax) 17 gm DAILYPRN PRN ORAL Constipation 01/23/20 15:45 02/12/20 15:44 Promethazine HCl/ Codeine (Phenergan with Codeine) 5 ml Q4H PRN ORAL For Cough 01/22/20 19:45 02/12/20 15:44 01/26/20 13:18 Theophylline (Jose-Dur) 100 mg EVERY 12 HOURS ORAL 01/22/20 21:00 02/13/20 08:59 02/04/20 08:49 Richard Hood MD Feb 04, 2020 17:37
--- NOTE | 2020-02-04 17:43 | Infectious Diseases Prog Note ---
Assessment/Plan Assessment/Plan ASSESSMENT: The patient is a 54-year-old male with: Afebrile No leukocytosis or leukopenia SOB, sp SP empiric CAP rx Ddx: CHF, COPD, PNA Covid-19 : Negative History of CHF. History of CAD History of hypothyroidism. History of hypertension. History of chronic obstructive pulmonary disease. Liver cirrhosis. History of drug abuse in the past. GERD PLAN: off of AB R x 02/19 Sp doxycycline and Rocephin day # 03/03 Monitor CBC. Monitor BMP Monitor chest x-ray. ELBERT RN Subjective Allergies: Coded Allergies: No Known Allergies (Unverified , 12/08/19) Subjective Pt continues to report heaviness in his chest denies chills, cough, sob, abdominal pain. Objective Vital Signs Last 24 Hour Vital Signs Date Time Temp Pulse Resp B/P (MAP) Pulse Ox O2 Delivery O2 Flow Rate FiO2 02/04/20 17:34 126/73 02/04/20 16:34 98.0 02/04/20 16:00 98.2 73 20 126/73 (90) 95 02/04/20 13:02 138/84 02/04/20 12:00 98.0 73 20 138/84 (102) 96 02/04/20 09:00 Room Air Room Air 02/04/20 08:49 71 125/74 02/04/20 08:48 125/74 02/04/20 08:30 71 125/74 (91) 02/04/20 08:16 131/77 02/04/20 08:15 79 133/79 (97) 02/04/20 08:14 98.1 02/04/20 08:10 73 131/77 (95) 02/04/20 08:00 68 74 74 02/04/20 08:00 133/79 02/04/20 08:00 98.3 68 21 152/87 (108) 95 02/04/20 07:44 152/87 02/04/20 04:00 98.0 82 20 150/100 (117) 98 02/04/20 03:36 120/80 02/04/20 03:16 120/80 02/03/20 21:27 Room Air Room Air 02/03/20 20:16 83 120/80 02/03/20 20:00 98.1 81 17 120/71 (87) 98 Height (Feet): 5 Height (Inches): 4.00 Weight (Pounds): 250 Objective Gen: NAD. well nourished. well hydrated. HEENT: anicteric sclera CV: RRR. no rubs Resp: RRR. CTAB. Abd: soft. no TTP. nondistended. Neuro: AAO. interactive skin: warm. dry. tattoo Laboratory Tests Test 02/04/20 05:35 White Blood Count 8.9 K/UL (4.8-10.8) Red Blood Count 4.85 M/UL (4.70-6.10) Hemoglobin 15.0 G/DL (14.2-18.0) Hematocrit 43.6 % (42.0-52.0) Mean Corpuscular Volume 90 FL (80-99) Mean Corpuscular Hemoglobin 31.0 PG (27.0-31.0) Mean Corpuscular Hemoglobin Concent 34.5 G/DL (32.0-36.0) Red Cell Distribution Width 12.2 % (11.6-14.8) Platelet Count 314 K/UL (150-450) Mean Platelet Volume 5.8 FL (6.5-10.1) L Neutrophils (%) (Auto) 60.9 % (45.0-75.0) Lymphocytes (%) (Auto) 24.9 % (20.0-45.0) Monocytes (%) (Auto) 8.9 % (1.0-10.0) Eosinophils (%) (Auto) 4.4 % (0.0-3.0) H Basophils (%) (Auto) 1.0 % (0.0-2.0) Sodium Level 133 MMOL/L (136-145) L Potassium Level 4.3 MMOL/L (3.5-5.1) Chloride Level 98 MMOL/L (98-107) Carbon Dioxide Level 23 MMOL/L (21-32) Anion Gap 12 mmol/L (5-15) Blood Urea Nitrogen 12 mg/dL (7-18) Creatinine 1.0 MG/DL (0.55-1.30) Estimat Glomerular Filtration Rate > 60 mL/min (>60) Glucose Level 405 MG/DL (74-106) H Calcium Level 9.2 MG/DL (8.5-10.1) Current Medications Medications (Trade) Dose Ordered Sig/Rodney Route PRN Reason Start Time Stop Time Status Last Admin Dose Admin Acetaminophen (Tylenol) 650 mg Q4H PRN ORAL Mild Pain/Temp > 100.5 01/26/20 01:00 02/12/20 16:59 01/26/20 18:50 Aspirin (Ecotrin) 81 mg DAILY ORAL 01/23/20 09:00 02/28/20 08:59 02/04/20 08:48 Bupropion HCl (Wellbutrin SR) 150 mg EVERY 12 HOURS ORAL 01/22/20 21:00 02/13/20 08:59 02/04/20 08:48 Clopidogrel Bisulfate (Plavix) 75 mg DAILY ORAL 01/23/20 09:00 02/13/20 08:59 02/04/20 08:48 Dextrose (Dextrose 50%) 25 ml Q30M PRN IV Hypoglycemia 01/22/20 17:00 04/18/20 18:59 Dextrose (Dextrose 50%) 50 ml Q30M PRN IV Hypoglycemia 01/22/20 17:00 04/18/20 18:59 Gabapentin (Neurontin) 300 mg BEDTIME ORAL 01/22/20 21:00 02/12/20 22:29 02/03/20 20:16 Heparin Sodium (Porcine) (Heparin 5000 units/ml) 5,000 units EVERY 12 HOURS SUBQ 01/22/20 21:00 02/28/20 08:59 02/04/20 08:53 Ibuprofen (Advil) 400 mg THREE TIMES A DAY PRN ORAL pain 02/04/20 16:15 03/05/20 09:29 02/04/20 16:04 Insulin Aspart (NovoLOG) BEFORE MEALS AND HS SUBQ 01/22/20 21:00 04/18/20 20:59 02/04/20 16:44 Isosorbide Dinitrate (Isordil) 10 mg TID ORAL 01/22/20 18:00 02/13/20 17:59 02/04/20 17:34 Loperamide HCl (Imodium) 4 mg Q6H PRN ORAL DIARRHEA 01/23/20 11:00 02/22/20 10:59 Metoprolol Succinate (Toprol XL) 50 mg Q12HR ORAL 01/22/20 21:00 04/17/20 19:29 02/04/20 08:49 Mirtazapine (Remeron) 7.5 mg BEDTIME ORAL 01/22/20 21:00 02/12/20 22:29 Morphine HCl (Morphine IR) 7.5 mg Q4H PRN ORAL severe pain 02/02/20 13:01 02/09/20 13:00 02/04/20 07:44 Nitroglycerin (Ntg) 0.4 mg Q5M PRN SL Prn Chest Pain 01/22/20 16:50 02/16/20 11:44 02/04/20 08:16 Ondansetron HCl (Zofran) 4 mg Q6H PRN IVP Nausea & Vomiting 01/22/20 18:00 02/12/20 17:59 02/01/20 17:54 Polyethylene Glycol (Miralax) 17 gm DAILYPRN PRN ORAL Constipation 01/23/20 15:45 02/12/20 15:44 Promethazine HCl/ Codeine (Phenergan with Codeine) 5 ml Q4H PRN ORAL For Cough 01/22/20 19:45 02/12/20 15:44 01/26/20 13:18 Theophylline (Jose-Dur) 100 mg EVERY 12 HOURS ORAL 01/22/20 21:00 02/13/20 08:59 02/04/20 08:49 Kym Hernandez MD Feb 04, 2020 17:43
[2020-02-05 04:00] VITALS: BP 147/87
[2020-02-05 05:25] LABS: BASOPHILS % (AUTO) 1.1 % (0.0-2.0); EOSINOPHILS % (AUTO) 5.2 % (0.0-3.0); HEMATOCRIT 41.9 % (42.0-52.0); HEMOGLOBIN 14.8 G/DL (14.2-18.0); LYMPHOCYTES % (AUTO) 25.8 % (20.0-45.0); MEAN CORPUSCULAR VOLUME 89 FL (80-99); MONOCYTES % (AUTO) 8.8 % (1.0-10.0); NEUTROPHILS % (AUTO) 59.1 % (45.0-75.0); PLATELET COUNT 297 K/UL (150-450); RED BLOOD COUNT 4.69 M/UL (4.70-6.10); RED CELL DISTRIBUTION WIDTH 12.1 % (11.6-14.8); WHITE BLOOD COUNT 8.9 K/UL (4.8-10.8)
[2020-02-05 05:40] LABS: ANION GAP 10 mmol/L (5-15); BLOOD UREA NITROGEN 15 mg/dL (7-18); CALCIUM 9.1 MG/DL (8.5-10.1); CARBON DIOXIDE 25 MMOL/L (21-32); CHLORIDE 100 MMOL/L (98-107); SODIUM 135 MMOL/L (136-145)
[2020-02-05] MEDS: NovoLOG Insulin Flexpen SUBQ SCH ×4 (06:02→21:06)
--- NOTE | 2020-02-05 07:43 | Infectious Diseases Prog Note ---
Assessment/Plan Assessment/Plan ASSESSMENT: The patient is a 54-year-old male with: Afebrile No leukocytosis or leukopenia SOB, sp SP empiric CAP rx Ddx: CHF, COPD, PNA Covid-19 : Negative History of CHF. History of CAD History of hypothyroidism. History of hypertension. History of chronic obstructive pulmonary disease. Liver cirrhosis. History of drug abuse in the past. GERD PLAN: off of AB R x 02/19 Sp doxycycline and Rocephin day # 03/03 Monitor CBC. Monitor BMP Monitor chest x-ray. ELBERT RN Subjective Allergies: Coded Allergies: No Known Allergies (Unverified , 12/08/19) Subjective AFebrile. No leukocytosis. no complaints Objective Vital Signs Last 24 Hour Vital Signs Date Time Temp Pulse Resp B/P (MAP) Pulse Ox O2 Delivery O2 Flow Rate FiO2 02/05/20 04:00 98.3 77 20 147/87 (107) 97 02/04/20 21:39 Room Air Room Air 02/04/20 20:34 76 130/74 02/04/20 20:00 98.0 76 20 130/74 (92) 95 02/04/20 17:34 126/73 02/04/20 16:34 98.0 02/04/20 16:00 98.2 73 20 126/73 (90) 95 02/04/20 13:02 138/84 02/04/20 12:00 98.0 73 20 138/84 (102) 96 02/04/20 09:00 Room Air Room Air 02/04/20 08:49 71 125/74 02/04/20 08:48 125/74 02/04/20 08:30 71 125/74 (91) 02/04/20 08:16 131/77 02/04/20 08:15 79 133/79 (97) 02/04/20 08:14 98.1 02/04/20 08:10 73 131/77 (95) 02/04/20 08:00 68 74 74 02/04/20 08:00 133/79 02/04/20 08:00 98.3 68 21 152/87 (108) 95 02/04/20 07:44 152/87 Height (Feet): 5 Height (Inches): 4.00 Weight (Pounds): 242 Objective Gen: NAD. well nourished. well hydrated. HEENT: anicteric sclera CV: RRR. no rubs Resp: RRR. CTAB. Abd: soft. no TTP. nondistended. Neuro: AAO. interactive skin: warm. dry. tattoo Laboratory Tests Test 02/05/20 04:40 White Blood Count 8.9 K/UL (4.8-10.8) Red Blood Count 4.69 M/UL (4.70-6.10) L Hemoglobin 14.8 G/DL (14.2-18.0) Hematocrit 41.9 % (42.0-52.0) L Mean Corpuscular Volume 89 FL (80-99) Mean Corpuscular Hemoglobin 31.5 PG (27.0-31.0) H Mean Corpuscular Hemoglobin Concent 35.3 G/DL (32.0-36.0) Red Cell Distribution Width 12.1 % (11.6-14.8) Platelet Count 297 K/UL (150-450) Mean Platelet Volume 5.7 FL (6.5-10.1) L Neutrophils (%) (Auto) 59.1 % (45.0-75.0) Lymphocytes (%) (Auto) 25.8 % (20.0-45.0) Monocytes (%) (Auto) 8.8 % (1.0-10.0) Eosinophils (%) (Auto) 5.2 % (0.0-3.0) H Basophils (%) (Auto) 1.1 % (0.0-2.0) Sodium Level 135 MMOL/L (136-145) L Potassium Level 4.0 MMOL/L (3.5-5.1) Chloride Level 100 MMOL/L (98-107) Carbon Dioxide Level 25 MMOL/L (21-32) Anion Gap 10 mmol/L (5-15) Blood Urea Nitrogen 15 mg/dL (7-18) Creatinine 1.0 MG/DL (0.55-1.30) Estimat Glomerular Filtration Rate > 60 mL/min (>60) Glucose Level 293 MG/DL (74-106) #H Calcium Level 9.1 MG/DL (8.5-10.1) Current Medications Medications (Trade) Dose Ordered Sig/Rodney Route PRN Reason Start Time Stop Time Status Last Admin Dose Admin Acetaminophen (Tylenol) 650 mg Q4H PRN ORAL Mild Pain/Temp > 100.5 01/26/20 01:00 02/12/20 16:59 01/26/20 18:50 Aspirin (Ecotrin) 81 mg DAILY ORAL 01/23/20 09:00 02/28/20 08:59 02/04/20 08:48 Bupropion HCl (Wellbutrin SR) 150 mg EVERY 12 HOURS ORAL 01/22/20 21:00 02/13/20 08:59 02/04/20 08:48 Clopidogrel Bisulfate (Plavix) 75 mg DAILY ORAL 01/23/20 09:00 02/13/20 08:59 02/04/20 08:48 Dextrose (Dextrose 50%) 25 ml Q30M PRN IV Hypoglycemia 01/22/20 17:00 04/18/20 18:59 Dextrose (Dextrose 50%) 50 ml Q30M PRN IV Hypoglycemia 01/22/20 17:00 04/18/20 18:59 Gabapentin (Neurontin) 300 mg BEDTIME ORAL 01/22/20 21:00 02/12/20 22:29 02/04/20 20:34 Heparin Sodium (Porcine) (Heparin 5000 units/ml) 5,000 units EVERY 12 HOURS SUBQ 01/22/20 21:00 02/28/20 08:59 02/04/20 20:35 Ibuprofen (Advil) 400 mg THREE TIMES A DAY PRN ORAL pain 02/04/20 16:15 03/05/20 09:29 02/04/20 16:04 Insulin Aspart (NovoLOG) BEFORE MEALS AND HS SUBQ 01/22/20 21:00 04/18/20 20:59 02/05/20 06:02 Isosorbide Dinitrate (Isordil) 10 mg TID ORAL 01/22/20 18:00 02/13/20 17:59 02/04/20 17:34 Loperamide HCl (Imodium) 4 mg Q6H PRN ORAL DIARRHEA 01/23/20 11:00 02/22/20 10:59 Metoprolol Succinate (Toprol XL) 50 mg Q12HR ORAL 01/22/20 21:00 04/17/20 19:29 02/04/20 20:34 Mirtazapine (Remeron) 7.5 mg BEDTIME ORAL 01/22/20 21:00 02/12/20 22:29 Morphine HCl (Morphine IR) 7.5 mg Q4H PRN ORAL severe pain 02/02/20 13:01 02/09/20 13:00 02/04/20 07:44 Nitroglycerin (Ntg) 0.4 mg Q5M PRN SL Prn Chest Pain 01/22/20 16:50 02/16/20 11:44 02/04/20 08:16 Ondansetron HCl (Zofran) 4 mg Q6H PRN IVP Nausea & Vomiting 01/22/20 18:00 02/12/20 17:59 02/01/20 17:54 Polyethylene Glycol (Miralax) 17 gm DAILYPRN PRN ORAL Constipation 01/23/20 15:45 02/12/20 15:44 Promethazine HCl/ Codeine (Phenergan with Codeine) 5 ml Q4H PRN ORAL For Cough 01/22/20 19:45 02/12/20 15:44 01/26/20 13:18 Theophylline (Jose-Dur) 100 mg EVERY 12 HOURS ORAL 01/22/20 21:00 02/13/20 08:59 02/04/20 20:34 Kym Hernandez MD Feb 05, 2020 07:43
[2020-02-05 08:00] VITALS: BP 124/67
[2020-02-05] MEDS: Aspirin EC 81mg tab ORAL SCH (08:44)
[2020-02-05] MEDS: BuPROPion SR 150mg tab ORAL SCH ×2 (08:45→21:00)
[2020-02-05] MEDS: Metoprolol Succinate XL 50mg tab ORAL SCH ×2 (08:45→21:11)
[2020-02-05] MEDS: Theophylline ER 100mg ORAL SCH ×2 (08:45→21:11)
[2020-02-05] MEDS: Heparin 5000 units/ml inj SUBQ SCH ×2 (08:46→21:07)
--- NOTE | 2020-02-05 09:27 | General Progress Note ---
Assessment/Plan Problem List: (1) Diabetes ICD Codes: E11.9 - Type 2 diabetes mellitus without complications SNOMED: 24094495 (2) Hypothyroid ICD Codes: E03.9 - Hypothyroidism, unspecified SNOMED: 06819651 (3) Chest pain ICD Codes: R07.9 - Chest pain, unspecified SNOMED: 94282525 Status: stable, progressing Assessment/Plan: o2 pulm tx prn pain control dc to snf if clear Subjective Constitutional: Reports: weakness Allergies: Coded Allergies: No Known Allergies (Unverified , 12/08/19) All Systems: reviewed and negative except above Subjective sleepy calm Objective Last 24 Hour Vital Signs Date Time Temp Pulse Resp B/P (MAP) Pulse Ox O2 Delivery O2 Flow Rate FiO2 02/05/20 08:45 70 124/67 02/05/20 08:45 124/67 02/05/20 08:00 97.4 70 18 124/67 (86) 97 02/05/20 04:00 98.3 77 20 147/87 (107) 97 02/04/20 21:39 Room Air Room Air 02/04/20 20:34 76 130/74 02/04/20 20:00 98.0 76 20 130/74 (92) 95 02/04/20 17:34 126/73 02/04/20 16:34 98.0 02/04/20 16:00 98.2 73 20 126/73 (90) 95 02/04/20 13:02 138/84 02/04/20 12:00 98.0 73 20 138/84 (102) 96 Intake and Output 02/04/20 02/05/20 19:00 07:00 Intake Total 1300 ml 375 ml Balance 1300 ml 375 ml Intake Oral 1300 ml 375 ml # Voids 3 2 Laboratory Tests 02/05/20 04:40: White Blood Count 8.9, Red Blood Count 4.69L, Hemoglobin 14.8, Hematocrit 41.9L , Mean Corpuscular Volume 89, Mean Corpuscular Hemoglobin 31.5H, Mean Corpuscular Hemoglobin Concent 35.3, Red Cell Distribution Width 12.1, Platelet Count 297, Mean Platelet Volume 5.7L, Neutrophils (%) (Auto) 59.1, Lymphocytes ( %) (Auto) 25.8, Monocytes (%) (Auto) 8.8, Eosinophils (%) (Auto) 5.2H, Basophils (%) (Auto) 1.1, Sodium Level 135L, Potassium Level 4.0, Chloride Level 100, Carbon Dioxide Level 25, Anion Gap 10, Blood Urea Nitrogen 15, Creatinine 1.0, Estimat Glomerular Filtration Rate > 60, Glucose Level 293#H, Calcium Level 9.1 Height (Feet): 5 Height (Inches): 4.00 Weight (Pounds): 242 General Appearance: lethargic EENT: normal ENT inspection Neck: normal alignment Cardiovascular: normal peripheral pulses, normal rate, regular rhythm Respiratory/Chest: chest wall non-tender, lungs clear, normal breath sounds Abdomen: normal bowel sounds, non tender, soft Extremities: normal inspection Edema: no edema noted Arm (L), no edema noted Arm (R), no edema noted Leg (L), no edema noted Leg (R), no edema noted Pedal (L), no edema noted Pedal (R), no edema noted Generalized Neurologic: motor weakness Skin: normal pigmentation, warm/dry Objective sl chest pain Fermín Griggs DO Feb 05, 2020 09:27
[2020-02-05 12:00] VITALS: BP 136/78
--- NOTE | 2020-02-05 12:47 | Pulmonology Progress Note ---
Assessment/Plan Problems: (1) Dizziness (2) Acute bronchitis (3) Viral syndrome (4) Mild diastolic dysfunction (5) Cardiac left ventricular ejection fraction greater than 40 percent (6) HTN (hypertension) (7) Hypothyroid (8) Diabetes Assessment/Plan no new complains doing better sputum culture and blood cultures are negative COVID-19 virus negative Pain consult requested wll reviewed dvt prophylaxis. Subjective ROS Limited/Unobtainable: No Constitutional: Reports: no symptoms HEENT: Repors: no symptoms Allergies: Coded Allergies: No Known Allergies (Unverified , 12/08/19) Objective Last 24 Hour Vital Signs Date Time Temp Pulse Resp B/P (MAP) Pulse Ox O2 Delivery O2 Flow Rate FiO2 02/05/20 12:00 98.0 69 18 136/78 (97) 96 02/05/20 09:00 Room Air 02/05/20 09:00 70 70 70 02/05/20 08:45 70 124/67 02/05/20 08:45 124/67 02/05/20 08:00 97.4 70 18 124/67 (86) 97 02/05/20 04:00 98.3 77 20 147/87 (107) 97 02/04/20 21:39 Room Air Room Air 02/04/20 20:34 76 130/74 02/04/20 20:00 98.0 76 20 130/74 (92) 95 02/04/20 17:34 126/73 02/04/20 16:34 98.0 02/04/20 16:00 98.2 73 20 126/73 (90) 95 02/04/20 13:02 138/84 Intake and Output 02/04/20 02/05/20 19:00 07:00 Intake Total 1300 ml 375 ml Balance 1300 ml 375 ml Intake Oral 1300 ml 375 ml # Voids 3 2 Objective General Appearance: WD/WN HEENT: normocephalic, atraumatic Respiratory/Chest: chest wall non-tender, lungs clear Breasts: no masses Cardiovascular: normal peripheral pulses Abdomen: normal bowel sounds, soft, non tender Genitourinary: normal external genitalia Extremities: no cyanosis Skin: no rash 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 Laboratory Tests 02/05/20 04:40: White Blood Count 8.9, Red Blood Count 4.69L, Hemoglobin 14.8, Hematocrit 41.9L , Mean Corpuscular Volume 89, Mean Corpuscular Hemoglobin 31.5H, Mean Corpuscular Hemoglobin Concent 35.3, Red Cell Distribution Width 12.1, Platelet Count 297, Mean Platelet Volume 5.7L, Neutrophils (%) (Auto) 59.1, Lymphocytes ( %) (Auto) 25.8, Monocytes (%) (Auto) 8.8, Eosinophils (%) (Auto) 5.2H, Basophils (%) (Auto) 1.1, Sodium Level 135L, Potassium Level 4.0, Chloride Level 100, Carbon Dioxide Level 25, Anion Gap 10, Blood Urea Nitrogen 15, Creatinine 1.0, Estimat Glomerular Filtration Rate > 60, Glucose Level 293#H, Calcium Level 9.1 Current Medications Medications (Trade) Dose Ordered Sig/Rodney Route PRN Reason Start Time Stop Time Status Last Admin Dose Admin Acetaminophen (Tylenol) 650 mg Q4H PRN ORAL Mild Pain/Temp > 100.5 01/26/20 01:00 02/12/20 16:59 01/26/20 18:50 Aspirin (Ecotrin) 81 mg DAILY ORAL 01/23/20 09:00 02/28/20 08:59 02/05/20 08:44 Bupropion HCl (Wellbutrin SR) 150 mg EVERY 12 HOURS ORAL 01/22/20 21:00 02/13/20 08:59 02/05/20 08:45 Clopidogrel Bisulfate (Plavix) 75 mg DAILY ORAL 01/23/20 09:00 02/13/20 08:59 02/05/20 08:45 Dextrose (Dextrose 50%) 25 ml Q30M PRN IV Hypoglycemia 01/22/20 17:00 04/18/20 18:59 Dextrose (Dextrose 50%) 50 ml Q30M PRN IV Hypoglycemia 01/22/20 17:00 04/18/20 18:59 Gabapentin (Neurontin) 300 mg BEDTIME ORAL 01/22/20 21:00 02/12/20 22:29 02/04/20 20:34 Heparin Sodium (Porcine) (Heparin 5000 units/ml) 5,000 units EVERY 12 HOURS SUBQ 01/22/20 21:00 02/28/20 08:59 02/05/20 08:46 Ibuprofen (Advil) 400 mg THREE TIMES A DAY PRN ORAL pain 02/04/20 16:15 03/05/20 09:29 02/04/20 16:04 Insulin Aspart (NovoLOG) BEFORE MEALS AND HS SUBQ 01/22/20 21:00 04/18/20 20:59 02/05/20 11:37 Isosorbide Dinitrate (Isordil) 10 mg TID ORAL 01/22/20 18:00 02/13/20 17:59 02/05/20 08:45 Loperamide HCl (Imodium) 4 mg Q6H PRN ORAL DIARRHEA 01/23/20 11:00 02/22/20 10:59 Metoprolol Succinate (Toprol XL) 50 mg Q12HR ORAL 01/22/20 21:00 04/17/20 19:29 02/05/20 08:45 Mirtazapine (Remeron) 7.5 mg BEDTIME ORAL 01/22/20 21:00 02/12/20 22:29 Morphine HCl (Morphine IR) 7.5 mg Q4H PRN ORAL severe pain 02/02/20 13:01 02/09/20 13:00 02/04/20 07:44 Nitroglycerin (Ntg) 0.4 mg Q5M PRN SL Prn Chest Pain 01/22/20 16:50 02/16/20 11:44 02/04/20 08:16 Ondansetron HCl (Zofran) 4 mg Q6H PRN IVP Nausea & Vomiting 01/22/20 18:00 02/12/20 17:59 02/01/20 17:54 Polyethylene Glycol (Miralax) 17 gm DAILYPRN PRN ORAL Constipation 01/23/20 15:45 02/12/20 15:44 Promethazine HCl/ Codeine (Phenergan with Codeine) 5 ml Q4H PRN ORAL For Cough 01/22/20 19:45 02/12/20 15:44 01/26/20 13:18 Theophylline (Jose-Dur) 100 mg EVERY 12 HOURS ORAL 01/22/20 21:00 02/13/20 08:59 02/05/20 08:45 Richard Hood MD Feb 05, 2020 12:47
--- NOTE | 2020-02-05 13:29 | General Progress Note ---
Assessment/Plan Assessment/Plan: (1) Lumbar degenerative disk disease (2) Lumbar radiculopathy (3) Lumbar spondylosis (4) H/o polysubstance abuse Patient will be continued on Morphine. D/w Dr. Bull and he concurred. Subjective Date patient seen: Feb 05, 2020 Time patient seen: 11:50 - pm Allergies: Coded Allergies: No Known Allergies (Unverified , 12/08/19) Subjective Constitutional: Reports: no symptoms HEENT: Reports: no symptoms Cardiovascular: Reports: no symptoms Respiratory: Reports: no symptoms Gastrointestinal/Abdominal: Reports: no symptoms Genitourinary: Reports: no symptoms Neurologic/Psychiatric: Reports: no symptoms Endocrine: Reports: no symptoms Hematologic/Lymphatic: Reports: no symptoms Subjective Patient states that the pain has been at a moderate level on the Morphine as needed. He has no new complaints at this time. Objective Last 24 Hour Vital Signs Date Time Temp Pulse Resp B/P (MAP) Pulse Ox O2 Delivery O2 Flow Rate FiO2 02/05/20 12:52 136/78 02/05/20 12:00 98.0 69 18 136/78 (97) 96 02/05/20 09:00 Room Air 02/05/20 09:00 70 70 70 02/05/20 08:45 70 124/67 02/05/20 08:45 124/67 02/05/20 08:00 97.4 70 18 124/67 (86) 97 02/05/20 04:00 98.3 77 20 147/87 (107) 97 02/04/20 21:39 Room Air Room Air 02/04/20 20:34 76 130/74 02/04/20 20:00 98.0 76 20 130/74 (92) 95 02/04/20 17:34 126/73 02/04/20 16:34 98.0 02/04/20 16:00 98.2 73 20 126/73 (90) 95 Intake and Output 02/04/20 02/05/20 19:00 07:00 Intake Total 1300 ml 375 ml Balance 1300 ml 375 ml Intake Oral 1300 ml 375 ml # Voids 3 2 Laboratory Tests 02/05/20 04:40: White Blood Count 8.9, Red Blood Count 4.69L, Hemoglobin 14.8, Hematocrit 41.9L , Mean Corpuscular Volume 89, Mean Corpuscular Hemoglobin 31.5H, Mean Corpuscular Hemoglobin Concent 35.3, Red Cell Distribution Width 12.1, Platelet Count 297, Mean Platelet Volume 5.7L, Neutrophils (%) (Auto) 59.1, Lymphocytes ( %) (Auto) 25.8, Monocytes (%) (Auto) 8.8, Eosinophils (%) (Auto) 5.2H, Basophils (%) (Auto) 1.1, Sodium Level 135L, Potassium Level 4.0, Chloride Level 100, Carbon Dioxide Level 25, Anion Gap 10, Blood Urea Nitrogen 15, Creatinine 1.0, Estimat Glomerular Filtration Rate > 60, Glucose Level 293#H, Calcium Level 9.1 Height (Feet): 5 Height (Inches): 4.00 Weight (Pounds): 248 Objective General Appearance: no apparent distress, alert EENT: PERRL/EOMI, normal ENT inspection Neck: non-tender, normal alignment Cardiovascular: normal rate, regular rhythm Respiratory/Chest: lungs clear, normal breath sounds Abdomen: non tender, soft Extremities: non-tender, normal inspection Edema: no edema noted Generalized Neurologic: alert, oriented x 3 Skin: warm/dry Steve Walker Feb 05, 2020 13:29
[2020-02-05 16:00] VITALS: BP 127/76
[2020-02-05] MEDS: Morphine IR 15mg tab ORAL PRN (16:41)
--- NOTE | 2020-02-05 17:04 | Cardiology Progress Note ---
Assessment/Plan Assessment/Plan 1. Chronic recurrent chest pain, no evidence of myonecrosis. 2. Coronary artery disease status post coronary artery bypass grafting and previous stenting. 3. Obesity. 4. Possible small vessel coronary disease. 5. Diabetes mellitus poor diet complaince 6. Hypertension. co dizziness but not orthostatic off lasix bnp last was normal the cp pain is possibly radicular bp seem fine hr is ok awaits facility to accept him d/w rn sin turning on the right side to watch tv while lying down, opal pain in the left arm is better has been complaining of cp dialy but looks very comfortable as uriah templeton down watchin his phone movies all his ekg have been normal await dispositiona Subjective Cardiovascular: Reports: chest pain, lightheadedness Respiratory: Reports: shortness of breath Gastrointestinal/Abdominal: Reports: abdominal pain Subjective dizziness , sinse turning on the right side to watch tv while lying down opal pain in the left arm is better Objective Last 24 Hour Vital Signs Date Time Temp Pulse Resp B/P (MAP) Pulse Ox O2 Delivery O2 Flow Rate FiO2 02/05/20 16:00 98.7 83 18 127/76 (93) 94 02/05/20 12:52 136/78 02/05/20 12:00 98.0 69 18 136/78 (97) 96 02/05/20 09:00 Room Air 02/05/20 09:00 70 70 70 02/05/20 08:45 70 124/67 02/05/20 08:45 124/67 02/05/20 08:00 97.4 70 18 124/67 (86) 97 02/05/20 04:00 98.3 77 20 147/87 (107) 97 02/04/20 21:39 Room Air Room Air 02/04/20 20:34 76 130/74 02/04/20 20:00 98.0 76 20 130/74 (92) 95 02/04/20 17:34 126/73 General Appearance: no apparent distress, alert Neck: supple Cardiovascular: normal rate Respiratory/Chest: lungs clear Abdomen: normal bowel sounds, non tender, soft Extremities: no swelling Intake and Output 02/04/20 02/05/20 19:00 07:00 Intake Total 1300 ml 375 ml Balance 1300 ml 375 ml Intake Oral 1300 ml 375 ml # Voids 3 2 Laboratory Tests Test 02/05/20 04:40 White Blood Count 8.9 K/UL (4.8-10.8) Red Blood Count 4.69 M/UL (4.70-6.10) L Hemoglobin 14.8 G/DL (14.2-18.0) Hematocrit 41.9 % (42.0-52.0) L Mean Corpuscular Volume 89 FL (80-99) Mean Corpuscular Hemoglobin 31.5 PG (27.0-31.0) H Mean Corpuscular Hemoglobin Concent 35.3 G/DL (32.0-36.0) Red Cell Distribution Width 12.1 % (11.6-14.8) Platelet Count 297 K/UL (150-450) Mean Platelet Volume 5.7 FL (6.5-10.1) L Neutrophils (%) (Auto) 59.1 % (45.0-75.0) Lymphocytes (%) (Auto) 25.8 % (20.0-45.0) Monocytes (%) (Auto) 8.8 % (1.0-10.0) Eosinophils (%) (Auto) 5.2 % (0.0-3.0) H Basophils (%) (Auto) 1.1 % (0.0-2.0) Sodium Level 135 MMOL/L (136-145) L Potassium Level 4.0 MMOL/L (3.5-5.1) Chloride Level 100 MMOL/L (98-107) Carbon Dioxide Level 25 MMOL/L (21-32) Anion Gap 10 mmol/L (5-15) Blood Urea Nitrogen 15 mg/dL (7-18) Creatinine 1.0 MG/DL (0.55-1.30) Estimat Glomerular Filtration Rate > 60 mL/min (>60) Glucose Level 293 MG/DL (74-106) #H Calcium Level 9.1 MG/DL (8.5-10.1) Sarkis Guthrie MD Feb 05, 2020 17:04
[2020-02-05 20:00] VITALS: BP 131/71
[2020-02-06 04:00] VITALS: BP 135/74
[2020-02-06 05:43] LABS: BASOPHILS % (AUTO) 1.4 % (0.0-2.0); EOSINOPHILS % (AUTO) 5.3 % (0.0-3.0); HEMATOCRIT 41.5 % (42.0-52.0); HEMOGLOBIN 14.9 G/DL (14.2-18.0); LYMPHOCYTES % (AUTO) 29.3 % (20.0-45.0); MEAN CORPUSCULAR VOLUME 89 FL (80-99); MONOCYTES % (AUTO) 7.8 % (1.0-10.0); NEUTROPHILS % (AUTO) 56.3 % (45.0-75.0); PLATELET COUNT 323 K/UL (150-450); RED BLOOD COUNT 4.64 M/UL (4.70-6.10); WHITE BLOOD COUNT 8.5 K/UL (4.8-10.8)
[2020-02-06 05:51] LABS: ANION GAP 9 mmol/L (5-15); BLOOD UREA NITROGEN 16 mg/dL (7-18); CALCIUM 8.8 MG/DL (8.5-10.1); CARBON DIOXIDE 27 MMOL/L (21-32); CHLORIDE 98 MMOL/L (98-107); POTASSIUM 4.4 MMOL/L (3.5-5.1); SODIUM 134 MMOL/L (136-145)
[2020-02-06] MEDS: NovoLOG Insulin Flexpen SUBQ SCH ×4 (06:02→21:30)
[2020-02-06] MEDS: Morphine IR 15mg tab ORAL PRN (06:02)
--- NOTE | 2020-02-06 07:49 | Infectious Diseases Prog Note ---
Assessment/Plan Assessment/Plan ASSESSMENT: The patient is a 54-year-old male with: Afebrile No leukocytosis or leukopenia SOB, sp SP empiric CAP rx Ddx: CHF, COPD, PNA Covid-19 : Negative History of CHF. History of CAD History of hypothyroidism. History of hypertension. History of chronic obstructive pulmonary disease. Liver cirrhosis. History of drug abuse in the past. GERD PLAN: off of AB Rx. 02/19 Sp doxycycline and Rocephin day # 5/ Monitor CBC. Monitor BMP Monitor chest x-ray. ELBERT RN Subjective Allergies: Coded Allergies: No Known Allergies (Unverified , 12/08/19) Subjective Afebrile. No leukocytosis. No chills cough or sob Objective Vital Signs Last 24 Hour Vital Signs Date Time Temp Pulse Resp B/P (MAP) Pulse Ox O2 Delivery O2 Flow Rate FiO2 02/06/20 04:00 98.0 73 17 135/74 (94) 94 02/05/20 21:11 77 131/71 02/05/20 21:00 Room Air 02/05/20 20:00 97.9 77 16 131/71 (91) 93 02/05/20 17:45 127/76 02/05/20 16:00 98.7 83 18 127/76 (93) 94 02/05/20 12:52 136/78 02/05/20 12:00 98.0 69 18 136/78 (97) 96 02/05/20 09:00 Room Air 02/05/20 09:00 70 70 70 02/05/20 08:45 70 124/67 02/05/20 08:45 124/67 02/05/20 08:00 97.4 70 18 124/67 (86) 97 Height (Feet): 5 Height (Inches): 4.00 Weight (Pounds): 248 Objective Gen: NAD. well nourished. well hydrated. HEENT: anicteric sclera CV: RRR. no rubs Resp: RRR. CTAB. no wheezes. no crackles. Abd: soft. no TTP. nondistended. Neuro: AAO. interactive skin: warm. dry. tattoo Laboratory Tests Test 02/06/20 04:35 White Blood Count 8.5 K/UL (4.8-10.8) Red Blood Count 4.64 M/UL (4.70-6.10) L Hemoglobin 14.9 G/DL (14.2-18.0) Hematocrit 41.5 % (42.0-52.0) L Mean Corpuscular Volume 89 FL (80-99) Mean Corpuscular Hemoglobin 32.2 PG (27.0-31.0) H Mean Corpuscular Hemoglobin Concent 36.0 G/DL (32.0-36.0) Red Cell Distribution Width 12.0 % (11.6-14.8) Platelet Count 323 K/UL (150-450) Mean Platelet Volume 5.7 FL (6.5-10.1) L Neutrophils (%) (Auto) 56.3 % (45.0-75.0) Lymphocytes (%) (Auto) 29.3 % (20.0-45.0) Monocytes (%) (Auto) 7.8 % (1.0-10.0) Eosinophils (%) (Auto) 5.3 % (0.0-3.0) H Basophils (%) (Auto) 1.4 % (0.0-2.0) Sodium Level 134 MMOL/L (136-145) L Potassium Level 4.4 MMOL/L (3.5-5.1) Chloride Level 98 MMOL/L (98-107) Carbon Dioxide Level 27 MMOL/L (21-32) Anion Gap 9 mmol/L (5-15) Blood Urea Nitrogen 16 mg/dL (7-18) Creatinine 1.0 MG/DL (0.55-1.30) Estimat Glomerular Filtration Rate > 60 mL/min (>60) Glucose Level 380 MG/DL (74-106) H Calcium Level 8.8 MG/DL (8.5-10.1) Current Medications Medications (Trade) Dose Ordered Sig/Rodney Route PRN Reason Start Time Stop Time Status Last Admin Dose Admin Acetaminophen (Tylenol) 650 mg Q4H PRN ORAL Mild Pain/Temp > 100.5 01/26/20 01:00 02/12/20 16:59 01/26/20 18:50 Aspirin (Ecotrin) 81 mg DAILY ORAL 01/23/20 09:00 02/28/20 08:59 02/05/20 08:44 Bupropion HCl (Wellbutrin SR) 150 mg EVERY 12 HOURS ORAL 01/22/20 21:00 02/13/20 08:59 02/05/20 08:45 Clopidogrel Bisulfate (Plavix) 75 mg DAILY ORAL 01/23/20 09:00 02/13/20 08:59 02/05/20 08:45 Dextrose (Dextrose 50%) 25 ml Q30M PRN IV Hypoglycemia 01/22/20 17:00 04/18/20 18:59 Dextrose (Dextrose 50%) 50 ml Q30M PRN IV Hypoglycemia 01/22/20 17:00 04/18/20 18:59 Gabapentin (Neurontin) 300 mg BEDTIME ORAL 01/22/20 21:00 02/12/20 22:29 02/05/20 21:11 Heparin Sodium (Porcine) (Heparin 5000 units/ml) 5,000 units EVERY 12 HOURS SUBQ 01/22/20 21:00 02/28/20 08:59 02/05/20 21:07 Ibuprofen (Advil) 400 mg THREE TIMES A DAY PRN ORAL pain 02/04/20 16:15 03/05/20 09:29 02/04/20 16:04 Insulin Aspart (NovoLOG) BEFORE MEALS AND HS SUBQ 01/22/20 21:00 04/18/20 20:59 02/06/20 06:02 Isosorbide Dinitrate (Isordil) 10 mg TID ORAL 01/22/20 18:00 02/13/20 17:59 02/05/20 17:45 Loperamide HCl (Imodium) 4 mg Q6H PRN ORAL DIARRHEA 01/23/20 11:00 02/22/20 10:59 Metoprolol Succinate (Toprol XL) 50 mg Q12HR ORAL 01/22/20 21:00 04/17/20 19:29 02/05/20 21:11 Mirtazapine (Remeron) 7.5 mg BEDTIME ORAL 01/22/20 21:00 02/12/20 22:29 Morphine HCl (Morphine IR) 7.5 mg Q4H PRN ORAL severe pain 02/02/20 13:01 02/09/20 13:00 02/06/20 06:02 Nitroglycerin (Ntg) 0.4 mg Q5M PRN SL Prn Chest Pain 01/22/20 16:50 02/16/20 11:44 02/04/20 08:16 Ondansetron HCl (Zofran) 4 mg Q6H PRN IVP Nausea & Vomiting 01/22/20 18:00 02/12/20 17:59 02/01/20 17:54 Polyethylene Glycol (Miralax) 17 gm DAILYPRN PRN ORAL Constipation 01/23/20 15:45 02/12/20 15:44 Promethazine HCl/ Codeine (Phenergan with Codeine) 5 ml Q4H PRN ORAL For Cough 01/22/20 19:45 02/12/20 15:44 01/26/20 13:18 Theophylline (Jose-Dur) 100 mg EVERY 12 HOURS ORAL 01/22/20 21:00 02/13/20 08:59 02/05/20 21:11 Kym Hernandez MD Feb 06, 2020 07:49
[2020-02-06 08:00] VITALS: BP 122/80
[2020-02-06] MEDS: Aspirin EC 81mg tab ORAL SCH (08:48)
[2020-02-06] MEDS: Metoprolol Succinate XL 50mg tab ORAL SCH ×2 (08:48→21:23)
[2020-02-06] MEDS: Theophylline ER 100mg ORAL SCH ×2 (08:48→21:22)
[2020-02-06] MEDS: Heparin 5000 units/ml inj SUBQ SCH ×2 (08:49→21:25)
[2020-02-06] MEDS: BuPROPion SR 150mg tab ORAL SCH ×2 (08:51→21:00)
[2020-02-06 12:00] VITALS: BP 140/67
--- NOTE | 2020-02-06 12:32 | General Progress Note ---
Assessment/Plan Problem List: (1) Diabetes ICD Codes: E11.9 - Type 2 diabetes mellitus without complications SNOMED: 28987096 (2) Hypothyroid ICD Codes: E03.9 - Hypothyroidism, unspecified SNOMED: 54413054 (3) Chest pain ICD Codes: R07.9 - Chest pain, unspecified SNOMED: 01945196 Status: stable, progressing Assessment/Plan: o2 pulm tx prn pain control dc to snf if clear Subjective Constitutional: Reports: weakness Allergies: Coded Allergies: No Known Allergies (Unverified , 12/08/19) All Systems: reviewed and negative except above Subjective sitting on bed calm Objective Last 24 Hour Vital Signs Date Time Temp Pulse Resp B/P (MAP) Pulse Ox O2 Delivery O2 Flow Rate FiO2 02/06/20 09:00 73 02/06/20 09:00 Room Air 02/06/20 08:48 73 122/80 02/06/20 08:48 122/80 02/06/20 08:00 97.8 73 18 122/80 (94) 94 02/06/20 04:00 98.0 73 17 135/74 (94) 94 02/05/20 21:11 77 131/71 02/05/20 21:00 Room Air 02/05/20 20:00 97.9 77 16 131/71 (91) 93 02/05/20 17:45 127/76 02/05/20 16:00 98.7 83 18 127/76 (93) 94 02/05/20 12:52 136/78 Intake and Output 02/05/20 02/06/20 19:00 07:00 Intake Total 600 ml 840 ml Balance 600 ml 840 ml Intake Oral 600 ml 840 ml # Voids 2 3 Laboratory Tests 02/06/20 04:35: White Blood Count 8.5, Red Blood Count 4.64L, Hemoglobin 14.9, Hematocrit 41.5L , Mean Corpuscular Volume 89, Mean Corpuscular Hemoglobin 32.2H, Mean Corpuscular Hemoglobin Concent 36.0, Red Cell Distribution Width 12.0, Platelet Count 323, Mean Platelet Volume 5.7L, Neutrophils (%) (Auto) 56.3, Lymphocytes ( %) (Auto) 29.3, Monocytes (%) (Auto) 7.8, Eosinophils (%) (Auto) 5.3H, Basophils (%) (Auto) 1.4, Sodium Level 134L, Potassium Level 4.4, Chloride Level 98, Carbon Dioxide Level 27, Anion Gap 9, Blood Urea Nitrogen 16, Creatinine 1.0, Estimat Glomerular Filtration Rate > 60, Glucose Level 380H, Calcium Level 8.8 Height (Feet): 5 Height (Inches): 4.00 Weight (Pounds): 248 General Appearance: lethargic EENT: normal ENT inspection Neck: normal alignment Cardiovascular: normal peripheral pulses, normal rate, regular rhythm Respiratory/Chest: chest wall non-tender, lungs clear, normal breath sounds Abdomen: normal bowel sounds, non tender, soft Extremities: normal inspection Edema: no edema noted Arm (L), no edema noted Arm (R), no edema noted Leg (L), no edema noted Leg (R), no edema noted Pedal (L), no edema noted Pedal (R), no edema noted Generalized Neurologic: responsive, motor weakness Skin: normal pigmentation, warm/dry Objective sl chest pain Fermín Griggs DO Feb 06, 2020 12:32
--- NOTE | 2020-02-06 12:52 | Pulmonology Progress Note ---
Assessment/Plan Problems: (1) Dizziness (2) Acute bronchitis (3) Viral syndrome (4) Mild diastolic dysfunction (5) Cardiac left ventricular ejection fraction greater than 40 percent (6) HTN (hypertension) (7) Hypothyroid (8) Diabetes Assessment/Plan doing better no new complains doing better sputum culture and blood cultures are negative COVID-19 virus negative wll reviewed dvt prophylaxis. Subjective ROS Limited/Unobtainable: No Constitutional: Reports: no symptoms HEENT: Repors: no symptoms Respiratory: Reports: no symptoms Allergies: Coded Allergies: No Known Allergies (Unverified , 12/08/19) Objective Last 24 Hour Vital Signs Date Time Temp Pulse Resp B/P (MAP) Pulse Ox O2 Delivery O2 Flow Rate FiO2 02/06/20 12:00 97.5 67 18 140/67 (91) 94 02/06/20 09:00 73 02/06/20 09:00 Room Air 02/06/20 08:48 73 122/80 02/06/20 08:48 122/80 02/06/20 08:00 97.8 73 18 122/80 (94) 94 02/06/20 04:00 98.0 73 17 135/74 (94) 94 02/05/20 21:11 77 131/71 02/05/20 21:00 Room Air 02/05/20 20:00 97.9 77 16 131/71 (91) 93 02/05/20 17:45 127/76 02/05/20 16:00 98.7 83 18 127/76 (93) 94 Intake and Output 02/05/20 02/06/20 19:00 07:00 Intake Total 600 ml 840 ml Balance 600 ml 840 ml Intake Oral 600 ml 840 ml # Voids 2 3 Objective General Appearance: WD/WN HEENT: normocephalic, atraumatic Respiratory/Chest: chest wall non-tender, lungs clear Breasts: no masses Cardiovascular: normal peripheral pulses Abdomen: normal bowel sounds, soft, non tender Genitourinary: normal external genitalia Extremities: no cyanosis Skin: no rash Neurologic/Psychiatric: parish visitor II-XII 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 Laboratory Tests 02/06/20 04:35: White Blood Count 8.5, Red Blood Count 4.64L, Hemoglobin 14.9, Hematocrit 41.5L , Mean Corpuscular Volume 89, Mean Corpuscular Hemoglobin 32.2H, Mean Corpuscular Hemoglobin Concent 36.0, Red Cell Distribution Width 12.0, Platelet Count 323, Mean Platelet Volume 5.7L, Neutrophils (%) (Auto) 56.3, Lymphocytes ( %) (Auto) 29.3, Monocytes (%) (Auto) 7.8, Eosinophils (%) (Auto) 5.3H, Basophils (%) (Auto) 1.4, Sodium Level 134L, Potassium Level 4.4, Chloride Level 98, Carbon Dioxide Level 27, Anion Gap 9, Blood Urea Nitrogen 16, Creatinine 1.0, Estimat Glomerular Filtration Rate > 60, Glucose Level 380H, Calcium Level 8.8 Current Medications Medications (Trade) Dose Ordered Sig/Rodney Route PRN Reason Start Time Stop Time Status Last Admin Dose Admin Acetaminophen (Tylenol) 650 mg Q4H PRN ORAL Mild Pain/Temp > 100.5 01/26/20 01:00 02/12/20 16:59 01/26/20 18:50 Aspirin (Ecotrin) 81 mg DAILY ORAL 01/23/20 09:00 02/28/20 08:59 02/06/20 08:48 Bupropion HCl (Wellbutrin SR) 150 mg EVERY 12 HOURS ORAL 01/22/20 21:00 02/13/20 08:59 02/05/20 08:45 Clopidogrel Bisulfate (Plavix) 75 mg DAILY ORAL 01/23/20 09:00 02/13/20 08:59 02/06/20 08:48 Dextrose (Dextrose 50%) 25 ml Q30M PRN IV Hypoglycemia 01/22/20 17:00 04/18/20 18:59 Dextrose (Dextrose 50%) 50 ml Q30M PRN IV Hypoglycemia 01/22/20 17:00 04/18/20 18:59 Gabapentin (Neurontin) 300 mg BEDTIME ORAL 01/22/20 21:00 02/12/20 22:29 02/05/20 21:11 Heparin Sodium (Porcine) (Heparin 5000 units/ml) 5,000 units EVERY 12 HOURS SUBQ 01/22/20 21:00 02/28/20 08:59 02/06/20 08:49 Ibuprofen (Advil) 400 mg THREE TIMES A DAY PRN ORAL pain 02/04/20 16:15 03/05/20 09:29 02/04/20 16:04 Insulin Aspart (NovoLOG) BEFORE MEALS AND HS SUBQ 01/22/20 21:00 04/18/20 20:59 02/06/20 11:38 Isosorbide Dinitrate (Isordil) 10 mg TID ORAL 01/22/20 18:00 02/13/20 17:59 02/06/20 08:48 Loperamide HCl (Imodium) 4 mg Q6H PRN ORAL DIARRHEA 01/23/20 11:00 02/22/20 10:59 Metoprolol Succinate (Toprol XL) 50 mg Q12HR ORAL 01/22/20 21:00 04/17/20 19:29 02/06/20 08:48 Mirtazapine (Remeron) 7.5 mg BEDTIME ORAL 01/22/20 21:00 02/12/20 22:29 Morphine HCl (Morphine IR) 7.5 mg Q4H PRN ORAL severe pain 02/02/20 13:01 02/09/20 13:00 02/06/20 06:02 Nitroglycerin (Ntg) 0.4 mg Q5M PRN SL Prn Chest Pain 01/22/20 16:50 02/16/20 11:44 02/04/20 08:16 Ondansetron HCl (Zofran) 4 mg Q6H PRN IVP Nausea & Vomiting 01/22/20 18:00 02/12/20 17:59 02/01/20 17:54 Polyethylene Glycol (Miralax) 17 gm DAILYPRN PRN ORAL Constipation 01/23/20 15:45 02/12/20 15:44 Promethazine HCl/ Codeine (Phenergan with Codeine) 5 ml Q4H PRN ORAL For Cough 01/22/20 19:45 02/12/20 15:44 01/26/20 13:18 Theophylline (Jose-Dur) 100 mg EVERY 12 HOURS ORAL 01/22/20 21:00 02/13/20 08:59 02/06/20 08:48 Richard Hood MD Feb 06, 2020 12:52
[2020-02-06 16:00] VITALS: BP 125/82
[2020-02-06 20:00] VITALS: BP 118/68
[2020-02-07] VITALS: BP 121/71
[2020-02-07 04:00] VITALS: BP 125/60
[2020-02-07] MEDS: NovoLOG Insulin Flexpen SUBQ SCH ×4 (06:22→20:58)
[2020-02-07 06:48] LABS: EOSINOPHILS % (AUTO) 4.2 % (0.0-3.0); HEMATOCRIT 43.4 % (42.0-52.0); HEMOGLOBIN 15.2 G/DL (14.2-18.0); LYMPHOCYTES % (AUTO) 25.5 % (20.0-45.0); MEAN CORPUSCULAR VOLUME 89 FL (80-99); MONOCYTES % (AUTO) 8.6 % (1.0-10.0); NEUTROPHILS % (AUTO) 60.7 % (45.0-75.0); PLATELET COUNT 294 K/UL (150-450); RED BLOOD COUNT 4.88 M/UL (4.70-6.10); RED CELL DISTRIBUTION WIDTH 11.9 % (11.6-14.8); WHITE BLOOD COUNT 8.8 K/UL (4.8-10.8)
[2020-02-07 07:24] LABS: ANION GAP 11 mmol/L (5-15); BLOOD UREA NITROGEN 16 mg/dL (7-18); CALCIUM 9.1 MG/DL (8.5-10.1); CARBON DIOXIDE 26 MMOL/L (21-32); CHLORIDE 99 MMOL/L (98-107); CREATININE 0.9 MG/DL (0.55-1.30); POTASSIUM 3.9 MMOL/L (3.5-5.1); SODIUM 136 MMOL/L (136-145)
--- NOTE | 2020-02-07 07:43 | Infectious Diseases Prog Note ---
Assessment/Plan Assessment/Plan ASSESSMENT: The patient is a 54-year-old male with: Afebrile No leukocytosis or leukopenia SOB, sp SP empiric CAP rx Ddx: CHF, COPD, PNA Covid-19 : Negative History of CHF. History of CAD History of hypothyroidism. History of hypertension. History of chronic obstructive pulmonary disease. Liver cirrhosis. History of drug abuse in the past. GERD PLAN: off of AB Rx. 02/19 Sp doxycycline and Rocephin day # 5/ Monitor CBC. Monitor BMP Monitor chest x-ray. ELBERT RN Subjective Allergies: Coded Allergies: No Known Allergies (Unverified , 12/08/19) Subjective Afebrile. No leukocytosis. no cough, sob or pleuritic chest pain Objective Vital Signs Last 24 Hour Vital Signs Date Time Temp Pulse Resp B/P (MAP) Pulse Ox O2 Delivery O2 Flow Rate FiO2 02/07/20 04:00 97.9 73 17 125/60 (81) 94 02/07/20 00:00 98.4 76 17 121/71 (88) 97 02/06/20 21:23 84 118/68 02/06/20 21:00 Room Air 02/06/20 20:00 98.2 84 16 118/68 (85) 95 02/06/20 17:27 125/82 02/06/20 16:00 99.2 76 18 125/82 (96) 95 02/06/20 12:55 140/67 02/06/20 12:00 97.5 67 18 140/67 (91) 94 02/06/20 09:00 73 02/06/20 09:00 Room Air 02/06/20 08:48 73 122/80 02/06/20 08:48 122/80 02/06/20 08:00 97.8 73 18 122/80 (94) 94 Height (Feet): 5 Height (Inches): 4.00 Weight (Pounds): 248 Objective Gen: NAD. well nourished. well hydrated. HEENT: anicteric sclera CV: RRR. no rubs Resp: RRR. CTAB. no wheezes. no crackles. Abd: soft. no TTP. nondistended. Neuro: AAO. interactive skin: warm. dry. tattoo Laboratory Tests Test 02/07/20 05:30 White Blood Count 8.8 K/UL (4.8-10.8) Red Blood Count 4.88 M/UL (4.70-6.10) Hemoglobin 15.2 G/DL (14.2-18.0) Hematocrit 43.4 % (42.0-52.0) Mean Corpuscular Volume 89 FL (80-99) Mean Corpuscular Hemoglobin 31.0 PG (27.0-31.0) Mean Corpuscular Hemoglobin Concent 34.9 G/DL (32.0-36.0) Red Cell Distribution Width 11.9 % (11.6-14.8) Platelet Count 294 K/UL (150-450) Mean Platelet Volume 5.6 FL (6.5-10.1) L Neutrophils (%) (Auto) 60.7 % (45.0-75.0) Lymphocytes (%) (Auto) 25.5 % (20.0-45.0) Monocytes (%) (Auto) 8.6 % (1.0-10.0) Eosinophils (%) (Auto) 4.2 % (0.0-3.0) H Basophils (%) (Auto) 1.0 % (0.0-2.0) Sodium Level 136 MMOL/L (136-145) Potassium Level 3.9 MMOL/L (3.5-5.1) Chloride Level 99 MMOL/L (98-107) Carbon Dioxide Level 26 MMOL/L (21-32) Anion Gap 11 mmol/L (5-15) Blood Urea Nitrogen 16 mg/dL (7-18) Creatinine 0.9 MG/DL (0.55-1.30) Estimat Glomerular Filtration Rate > 60 mL/min (>60) Glucose Level 265 MG/DL (74-106) #H Calcium Level 9.1 MG/DL (8.5-10.1) Current Medications Medications (Trade) Dose Ordered Sig/Rodney Route PRN Reason Start Time Stop Time Status Last Admin Dose Admin Acetaminophen (Tylenol) 650 mg Q4H PRN ORAL Mild Pain/Temp > 100.5 01/26/20 01:00 02/12/20 16:59 01/26/20 18:50 Aspirin (Ecotrin) 81 mg DAILY ORAL 01/23/20 09:00 02/28/20 08:59 02/06/20 08:48 Bupropion HCl (Wellbutrin SR) 150 mg EVERY 12 HOURS ORAL 01/22/20 21:00 02/13/20 08:59 02/05/20 08:45 Clopidogrel Bisulfate (Plavix) 75 mg DAILY ORAL 01/23/20 09:00 02/13/20 08:59 02/06/20 08:48 Dextrose (Dextrose 50%) 25 ml Q30M PRN IV Hypoglycemia 01/22/20 17:00 04/18/20 18:59 Dextrose (Dextrose 50%) 50 ml Q30M PRN IV Hypoglycemia 01/22/20 17:00 04/18/20 18:59 Gabapentin (Neurontin) 300 mg BEDTIME ORAL 01/22/20 21:00 02/12/20 22:29 02/06/20 21:22 Heparin Sodium (Porcine) (Heparin 5000 units/ml) 5,000 units EVERY 12 HOURS SUBQ 01/22/20 21:00 02/28/20 08:59 02/06/20 21:25 Insulin Aspart (NovoLOG) BEFORE MEALS AND HS SUBQ 01/22/20 21:00 04/18/20 20:59 02/07/20 06:22 Isosorbide Dinitrate (Isordil) 10 mg TID ORAL 01/22/20 18:00 02/13/20 17:59 02/06/20 17:27 Metoprolol Succinate (Toprol XL) 50 mg Q12HR ORAL 01/22/20 21:00 04/17/20 19:29 02/06/20 21:23 Morphine HCl (Morphine IR) 7.5 mg Q4H PRN ORAL severe pain 02/02/20 13:01 02/09/20 13:00 02/06/20 06:02 Nitroglycerin (Ntg) 0.4 mg Q5M PRN SL Prn Chest Pain 01/22/20 16:50 02/16/20 11:44 02/04/20 08:16 Ondansetron HCl (Zofran) 4 mg Q6H PRN IVP Nausea & Vomiting 01/22/20 18:00 02/12/20 17:59 02/01/20 17:54 Promethazine HCl/ Codeine (Phenergan with Codeine) 5 ml Q4H PRN ORAL For Cough 01/22/20 19:45 02/12/20 15:44 01/26/20 13:18 Theophylline (Jose-Dur) 100 mg EVERY 12 HOURS ORAL 01/22/20 21:00 02/13/20 08:59 02/06/20 21:22 Kym Hernandez MD Feb 07, 2020 07:43
[2020-02-07 08:00] VITALS: BP 126/76
--- NOTE | 2020-02-07 08:45 | General Progress Note ---
Assessment/Plan Problem List: (1) Diabetes ICD Codes: E11.9 - Type 2 diabetes mellitus without complications SNOMED: 47016070 (2) Hypothyroid ICD Codes: E03.9 - Hypothyroidism, unspecified SNOMED: 98434682 (3) Chest pain ICD Codes: R07.9 - Chest pain, unspecified SNOMED: 54117183 Status: stable, progressing Assessment/Plan: o2 pulm tx prn pain control dc to snf if clear Subjective Constitutional: Reports: weakness Allergies: Coded Allergies: No Known Allergies (Unverified , 12/08/19) All Systems: reviewed and negative except above Subjective sitting on bed calm Objective Last 24 Hour Vital Signs Date Time Temp Pulse Resp B/P (MAP) Pulse Ox O2 Delivery O2 Flow Rate FiO2 02/07/20 04:00 97.9 73 17 125/60 (81) 94 02/07/20 00:00 98.4 76 17 121/71 (88) 97 02/06/20 21:23 84 118/68 02/06/20 21:00 Room Air 02/06/20 20:00 98.2 84 16 118/68 (85) 95 02/06/20 17:27 125/82 02/06/20 16:00 99.2 76 18 125/82 (96) 95 02/06/20 12:55 140/67 02/06/20 12:00 97.5 67 18 140/67 (91) 94 02/06/20 09:00 73 02/06/20 09:00 Room Air 02/06/20 08:48 73 122/80 02/06/20 08:48 122/80 Intake and Output 02/06/20 02/07/20 19:00 07:00 Intake Total 500 ml 872 ml Balance 500 ml 872 ml Intake Oral 500 ml 872 ml # Voids 3 3 # Bowel Movements 1 Laboratory Tests 02/07/20 05:30: White Blood Count 8.8, Red Blood Count 4.88, Hemoglobin 15.2, Hematocrit 43.4, Mean Corpuscular Volume 89, Mean Corpuscular Hemoglobin 31.0, Mean Corpuscular Hemoglobin Concent 34.9, Red Cell Distribution Width 11.9, Platelet Count 294, Mean Platelet Volume 5.6L, Neutrophils (%) (Auto) 60.7, Lymphocytes (%) (Auto) 25.5, Monocytes (%) (Auto) 8.6, Eosinophils (%) (Auto) 4.2H, Basophils (%) (Auto ) 1.0, Sodium Level 136, Potassium Level 3.9, Chloride Level 99, Carbon Dioxide Level 26, Anion Gap 11, Blood Urea Nitrogen 16, Creatinine 0.9, Estimat Glomerular Filtration Rate > 60, Glucose Level 265#H, Calcium Level 9.1 Height (Feet): 5 Height (Inches): 4.00 Weight (Pounds): 248 General Appearance: lethargic EENT: normal ENT inspection Neck: normal alignment Cardiovascular: normal peripheral pulses, normal rate, regular rhythm Respiratory/Chest: chest wall non-tender, lungs clear, normal breath sounds Abdomen: normal bowel sounds, non tender, soft Extremities: normal inspection Edema: no edema noted Arm (L), no edema noted Arm (R), no edema noted Leg (L), no edema noted Leg (R), no edema noted Pedal (L), no edema noted Pedal (R), no edema noted Generalized Neurologic: motor weakness Skin: normal pigmentation, warm/dry Objective sl chest pain Fermín Griggs DO Feb 07, 2020 08:45
[2020-02-07] MEDS: Heparin 5000 units/ml inj SUBQ SCH ×2 (08:52→20:55)
[2020-02-07] MEDS: Theophylline ER 100mg ORAL SCH ×2 (08:54→20:54)
[2020-02-07] MEDS: Metoprolol Succinate XL 50mg tab ORAL SCH ×2 (08:54→20:54)
[2020-02-07] MEDS: Aspirin EC 81mg tab ORAL SCH (08:54)
[2020-02-07] MEDS: BuPROPion SR 150mg tab ORAL SCH ×2 (08:54→20:58)
[2020-02-07] MEDS: Morphine IR 15mg tab ORAL PRN (11:12)
[2020-02-07 12:00] VITALS: BP 133/87
[2020-02-07 16:00] VITALS: BP 131/79
[2020-02-07 20:00] VITALS: BP 139/80
[2020-02-08] VITALS: BP 149/80
[2020-02-08 04:00] VITALS: BP 128/76
[2020-02-08] MEDS: NovoLOG Insulin Flexpen SUBQ SCH ×4 (06:16→20:27)
--- NOTE | 2020-02-08 08:38 | General Progress Note ---
Assessment/Plan Problem List: (1) Diabetes ICD Codes: E11.9 - Type 2 diabetes mellitus without complications SNOMED: 86829401 (2) Hypothyroid ICD Codes: E03.9 - Hypothyroidism, unspecified SNOMED: 88814186 (3) Chest pain ICD Codes: R07.9 - Chest pain, unspecified SNOMED: 17561052 Status: stable, progressing Assessment/Plan: o2 pulm tx prn pain control dc to snf if clear Subjective Constitutional: Reports: weakness Allergies: Coded Allergies: No Known Allergies (Unverified , 12/08/19) All Systems: reviewed and negative except above Subjective sleepy in bed calm Objective Last 24 Hour Vital Signs Date Time Temp Pulse Resp B/P (MAP) Pulse Ox O2 Delivery O2 Flow Rate FiO2 02/08/20 04:00 98.2 88 18 128/76 (93) 94 02/08/20 00:00 98.4 100 18 149/80 (103) 95 02/07/20 21:00 Room Air 02/07/20 20:54 92 139/80 02/07/20 20:00 98.4 92 18 139/80 (99) 94 02/07/20 17:03 131/79 02/07/20 16:00 98.2 92 18 131/79 (96) 95 02/07/20 12:43 133/87 02/07/20 12:00 98.2 84 20 133/87 (102) 97 02/07/20 09:00 79 83 83 02/07/20 09:00 Room Air 02/07/20 08:54 76 126/76 02/07/20 08:54 126/76 Intake and Output 02/07/20 02/08/20 19:00 07:00 Intake Total 936 ml 400 ml Balance 936 ml 400 ml Intake Oral 936 ml 400 ml # Voids 3 3 Height (Feet): 5 Height (Inches): 4.00 Weight (Pounds): 250 General Appearance: lethargic EENT: normal ENT inspection Neck: normal alignment Cardiovascular: normal peripheral pulses, normal rate, regular rhythm Respiratory/Chest: chest wall non-tender, lungs clear, normal breath sounds Abdomen: normal bowel sounds, non tender, soft Extremities: normal inspection Edema: no edema noted Arm (L), no edema noted Arm (R), no edema noted Leg (L), no edema noted Leg (R), no edema noted Pedal (L), no edema noted Pedal (R), no edema noted Generalized Neurologic: motor weakness Skin: normal pigmentation, warm/dry Objective sl chest pain Fermín Griggs DO Feb 08, 2020 08:38
--- NOTE | 2020-02-08 09:24 | Pulmonology Progress Note ---
Assessment/Plan Assessment/Plan ASSESSMENT Acute bronchitis Possible PNA Viral syndrome Suspected COVID 19 - ruled out Chronic recurrent chest pain CAD with hx of CABG DM HTN Hypothyroidism Obesity PLAN of CARE MS floor O2 HHN PRN, pulse ox stable on RA s/p empiric abx BCX NGTD SCX NGT influenza swab NGT COVID 19 not detected stool C dif NGT DVT prophylaxis serial troponin negative, EKG no acute ischemic changes, ruled out for acute NV. Echo with pEF 55 to 60% , no WMA per cardio-> no evidence of myonecrosis d/aPLT, nitrate Lasix dc monitor renal parameters BS with SSI supportive care awaiting for placement case discussed and evaluated by supervising physician Subjective Allergies: Coded Allergies: No Known Allergies (Unverified , 12/08/19) Subjective no fevers, no leukocytosis pulse ox stable on RA Objective Last 24 Hour Vital Signs Date Time Temp Pulse Resp B/P (MAP) Pulse Ox O2 Delivery O2 Flow Rate FiO2 02/08/20 04:00 98.2 88 18 128/76 (93) 94 02/08/20 00:00 98.4 100 18 149/80 (103) 95 02/07/20 21:00 Room Air 02/07/20 20:54 92 139/80 02/07/20 20:00 98.4 92 18 139/80 (99) 94 02/07/20 17:03 131/79 02/07/20 16:00 98.2 92 18 131/79 (96) 95 02/07/20 12:43 133/87 02/07/20 12:00 98.2 84 20 133/87 (102) 97 Intake and Output 02/07/20 02/08/20 19:00 07:00 Intake Total 936 ml 400 ml Balance 936 ml 400 ml Intake Oral 936 ml 400 ml # Voids 3 3 Objective General Appearance: obese male in NAD HEENT: normocephalic, atraumatic, anicteric, mucous membranes moist Respiratory/Chest: CTA Cardiovascular: regular rhythm Abdomen: normal bowel sounds, soft, non tender, obese Extremities: trace edema BLE Skin: no rash, Neurologic/Psychiatric: alert, oriented x 3, responsive Current Medications Medications (Trade) Dose Ordered Sig/Rodney Route PRN Reason Start Time Stop Time Status Last Admin Dose Admin Acetaminophen (Tylenol) 650 mg Q4H PRN ORAL Mild Pain/Temp > 100.5 01/26/20 01:00 02/12/20 16:59 01/26/20 18:50 Aspirin (Ecotrin) 81 mg DAILY ORAL 01/23/20 09:00 02/28/20 08:59 02/07/20 08:54 Bupropion HCl (Wellbutrin SR) 150 mg EVERY 12 HOURS ORAL 01/22/20 21:00 02/13/20 08:59 02/07/20 08:54 Clopidogrel Bisulfate (Plavix) 75 mg DAILY ORAL 01/23/20 09:00 02/13/20 08:59 02/07/20 08:54 Dextrose (Dextrose 50%) 25 ml Q30M PRN IV Hypoglycemia 01/22/20 17:00 04/18/20 18:59 Dextrose (Dextrose 50%) 50 ml Q30M PRN IV Hypoglycemia 01/22/20 17:00 04/18/20 18:59 Gabapentin (Neurontin) 300 mg BEDTIME ORAL 01/22/20 21:00 02/12/20 22:29 02/07/20 20:59 Heparin Sodium (Porcine) (Heparin 5000 units/ml) 5,000 units EVERY 12 HOURS SUBQ 01/22/20 21:00 02/28/20 08:59 02/07/20 20:55 Insulin Aspart (NovoLOG) BEFORE MEALS AND HS SUBQ 01/22/20 21:00 04/18/20 20:59 02/08/20 06:16 Isosorbide Dinitrate (Isordil) 10 mg TID ORAL 01/22/20 18:00 02/13/20 17:59 02/07/20 17:03 Metoprolol Succinate (Toprol XL) 50 mg Q12HR ORAL 01/22/20 21:00 04/17/20 19:29 02/07/20 20:54 Morphine HCl (Morphine IR) 7.5 mg Q4H PRN ORAL severe pain 02/02/20 13:01 02/09/20 13:00 02/07/20 11:12 Nitroglycerin (Ntg) 0.4 mg Q5M PRN SL Prn Chest Pain 01/22/20 16:50 02/16/20 11:44 02/04/20 08:16 Ondansetron HCl (Zofran) 4 mg Q6H PRN IVP Nausea & Vomiting 01/22/20 18:00 02/12/20 17:59 02/01/20 17:54 Promethazine HCl/ Codeine (Phenergan with Codeine) 5 ml Q4H PRN ORAL For Cough 01/22/20 19:45 02/12/20 15:44 01/26/20 13:18 Theophylline (Jose-Dur) 100 mg EVERY 12 HOURS ORAL 01/22/20 21:00 02/13/20 08:59 02/07/20 20:54 Patricia Brewster MECH[employer]CH[employer]ICAL SERVICE [employer]IST Feb 08, 2020 09:24
[2020-02-08 10:15] VITALS: BP 128/74
[2020-02-08] MEDS: Heparin 5000 units/ml inj SUBQ SCH ×2 (10:19→20:26)
[2020-02-08] MEDS: Theophylline ER 100mg ORAL SCH ×2 (10:20→20:24)
[2020-02-08] MEDS: BuPROPion SR 150mg tab ORAL SCH ×3 (10:20→20:37)
[2020-02-08] MEDS: Aspirin EC 81mg tab ORAL SCH (10:20)
[2020-02-08] MEDS: Metoprolol Succinate XL 50mg tab ORAL SCH ×2 (10:20→20:25)
[2020-02-08 12:03] VITALS: BP 152/97
[2020-02-08] MEDS: Morphine IR 15mg tab ORAL PRN (12:28)
--- NOTE | 2020-02-08 15:01 | Cardiology Progress Note ---
Assessment/Plan Assessment/Plan reviewed his chart, d/w Dr Guthrie, the patient with significant history of CAd, but at present time probably not cardiac chest pain Subjective Subjective The patient is resting in bed on his right side watching movie on his laptop complaining on midsubsternal chest pain, constant possibly positional Objective Last 24 Hour Vital Signs Date Time Temp Pulse Resp B/P (MAP) Pulse Ox O2 Delivery O2 Flow Rate FiO2 02/08/20 12:24 152/97 02/08/20 12:03 98.8 88 18 152/97 (115) 97 02/08/20 10:20 83 128/74 02/08/20 10:20 128/74 02/08/20 10:15 98.5 83 18 128/74 (92) 96 02/08/20 09:00 Room Air 02/08/20 09:00 83 82 85 02/08/20 04:00 98.2 88 18 128/76 (93) 94 02/08/20 00:00 98.4 100 18 149/80 (103) 95 02/07/20 21:00 Room Air 02/07/20 20:54 92 139/80 02/07/20 20:00 98.4 92 18 139/80 (99) 94 02/07/20 17:03 131/79 02/07/20 16:00 98.2 92 18 131/79 (96) 95 General Appearance: no apparent distress EENT: PERRL/EOMI Neck: no JVD Rhythm: NSR Cardiovascular: regular rhythm Respiratory/Chest: lungs clear Abdomen: non tender Intake and Output 02/07/20 02/08/20 19:00 07:00 Intake Total 936 ml 400 ml Balance 936 ml 400 ml Intake Oral 936 ml 400 ml # Voids 3 3 Nelda Ladd MD Feb 08, 2020 15:01
[2020-02-08 16:00] VITALS: BP 118/69
--- NOTE | 2020-02-08 20:33 | Infectious Diseases Prog Note ---
Assessment/Plan Assessment/Plan ASSESSMENT: The patient is a 54-year-old male with: Afebrile No leukocytosis or leukopenia SOB, sp SP empiric CAP rx Ddx: CHF, COPD, PNA Covid-19 : Negative History of CHF. History of CAD History of hypothyroidism. History of hypertension. History of chronic obstructive pulmonary disease. Liver cirrhosis. History of drug abuse in the past. GERD PLAN: off of AB Rx. 02/19 Sp doxycycline and Rocephin day # 5/ Monitor CBC. Monitor BMP Monitor chest x-ray. ELBERT RN Subjective Allergies: Coded Allergies: No Known Allergies (Unverified , 12/08/19) Subjective Afebrile. feels the same Objective Vital Signs Last 24 Hour Vital Signs Date Time Temp Pulse Resp B/P (MAP) Pulse Ox O2 Delivery O2 Flow Rate FiO2 02/08/20 20:25 80 129/72 02/08/20 17:31 118/69 02/08/20 16:00 98.3 78 18 118/69 (85) 94 02/08/20 12:24 152/97 02/08/20 12:03 98.8 88 18 152/97 (115) 97 02/08/20 10:20 83 128/74 02/08/20 10:20 128/74 02/08/20 10:15 98.5 83 18 128/74 (92) 96 02/08/20 09:00 Room Air 02/08/20 09:00 83 82 85 02/08/20 04:00 98.2 88 18 128/76 (93) 94 02/08/20 00:00 98.4 100 18 149/80 (103) 95 02/07/20 21:00 Room Air 02/07/20 20:54 92 139/80 Height (Feet): 5 Height (Inches): 4.00 Weight (Pounds): 250 Objective Gen: NAD. well nourished. well hydrated. HEENT: anicteric sclera CV: RRR. no rubs Resp: RRR. CTAB. no wheezes. no crackles. Abd: soft. no TTP. nondistended. Neuro: AAO. interactive skin: warm. dry. tattoo Current Medications Medications (Trade) Dose Ordered Sig/Rodney Route PRN Reason Start Time Stop Time Status Last Admin Dose Admin Acetaminophen (Tylenol) 650 mg Q4H PRN ORAL Mild Pain/Temp > 100.5 01/26/20 01:00 02/12/20 16:59 01/26/20 18:50 Aspirin (Ecotrin) 81 mg DAILY ORAL 01/23/20 09:00 02/28/20 08:59 02/08/20 10:20 Bupropion HCl (Wellbutrin SR) 150 mg EVERY 12 HOURS ORAL 01/22/20 21:00 02/13/20 08:59 02/08/20 20:25 Clopidogrel Bisulfate (Plavix) 75 mg DAILY ORAL 01/23/20 09:00 02/13/20 08:59 02/08/20 10:20 Dextrose (Dextrose 50%) 25 ml Q30M PRN IV Hypoglycemia 01/22/20 17:00 04/18/20 18:59 Dextrose (Dextrose 50%) 50 ml Q30M PRN IV Hypoglycemia 01/22/20 17:00 04/18/20 18:59 Gabapentin (Neurontin) 300 mg BEDTIME ORAL 01/22/20 21:00 02/12/20 22:29 02/08/20 20:23 Heparin Sodium (Porcine) (Heparin 5000 units/ml) 5,000 units EVERY 12 HOURS SUBQ 01/22/20 21:00 02/28/20 08:59 02/08/20 20:26 Insulin Aspart (NovoLOG) BEFORE MEALS AND HS SUBQ 01/22/20 21:00 04/18/20 20:59 02/08/20 20:27 Isosorbide Dinitrate (Isordil) 10 mg TID ORAL 01/22/20 18:00 02/13/20 17:59 02/08/20 17:31 Metoprolol Succinate (Toprol XL) 50 mg Q12HR ORAL 01/22/20 21:00 04/17/20 19:29 02/08/20 20:25 Morphine HCl (Morphine IR) 7.5 mg Q4H PRN ORAL severe pain 02/02/20 13:01 02/09/20 13:00 02/08/20 12:28 Nitroglycerin (Ntg) 0.4 mg Q5M PRN SL Prn Chest Pain 01/22/20 16:50 02/16/20 11:44 02/04/20 08:16 Ondansetron HCl (Zofran) 4 mg Q6H PRN IVP Nausea & Vomiting 01/22/20 18:00 02/12/20 17:59 02/01/20 17:54 Promethazine HCl/ Codeine (Phenergan with Codeine) 5 ml Q4H PRN ORAL For Cough 01/22/20 19:45 02/12/20 15:44 01/26/20 13:18 Theophylline (Jose-Dur) 100 mg EVERY 12 HOURS ORAL 01/22/20 21:00 02/13/20 08:59 02/08/20 20:24 Kmy Hernandez MD Feb 08, 2020 20:33
[2020-02-09 04:00] VITALS: BP 142/82
[2020-02-09 05:55] LABS: BASOPHILS % (AUTO) 1.4 % (0.0-2.0); EOSINOPHILS % (AUTO) 4.6 % (0.0-3.0); LYMPHOCYTES % (AUTO) 29.2 % (20.0-45.0); MEAN CORPUSCULAR VOLUME 88 FL (80-99); MONOCYTES % (AUTO) 8.3 % (1.0-10.0); NEUTROPHILS % (AUTO) 56.5 % (45.0-75.0); PLATELET COUNT 295 K/UL (150-450); RED BLOOD COUNT 4.52 M/UL (4.70-6.10); RED CELL DISTRIBUTION WIDTH 11.8 % (11.6-14.8); WHITE BLOOD COUNT 7.9 K/UL (4.8-10.8)
[2020-02-09 06:10] LABS: ANION GAP 11 mmol/L (5-15); BLOOD UREA NITROGEN 13 mg/dL (7-18); CALCIUM 9.3 MG/DL (8.5-10.1); CARBON DIOXIDE 24 MMOL/L (21-32); CHLORIDE 100 MMOL/L (98-107); CREATININE 0.8 MG/DL (0.55-1.30); POTASSIUM 3.9 MMOL/L (3.5-5.1); SODIUM 135 MMOL/L (136-145)
[2020-02-09] MEDS: NovoLOG Insulin Flexpen SUBQ SCH ×4 (06:59→20:54)
[2020-02-09 08:00] VITALS: BP 139/78
[2020-02-09] MEDS ORDERED: Albuterol/Ipratropium 3ml neb HHN PRN (08:15)
--- NOTE | 2020-02-09 08:15 | Pulmonology Progress Note ---
Assessment/Plan Assessment/Plan ASSESSMENT Acute bronchitis Possible PNA Viral syndrome Suspected COVID 19 - ruled out Chronic recurrent chest pain CAD with hx of CABG DM HTN Hypothyroidism Obesity PLAN of CARE MS floor O2 HHN PRN, pulse ox stable on RA s/p empiric abx BCX NGTD SCX NGT influenza swab NGT COVID 19 not detected stool C dif NGT DVT prophylaxis serial troponin negative, EKG no acute ischemic changes, ruled out for acute MS. Echo with pEF 55 to 60% , no WMA per cardio-> no evidence of myonecrosis d/aPLT, nitrate Lasix dc monitor renal parameters BS with SSI supportive care awaiting for placement case discussed and evaluated by supervising physician Subjective Allergies: Coded Allergies: No Known Allergies (Unverified , 12/08/19) Subjective no fevers, no leukocytosis pulse ox stable on RA Objective Last 24 Hour Vital Signs Date Time Temp Pulse Resp B/P (MAP) Pulse Ox O2 Delivery O2 Flow Rate FiO2 02/09/20 04:00 97.4 69 19 142/82 (102) 100 69 02/08/20 21:00 Room Air 02/08/20 20:25 80 129/72 02/08/20 17:31 118/69 02/08/20 16:00 98.3 78 18 118/69 (85) 94 02/08/20 12:24 152/97 02/08/20 12:03 98.8 88 18 152/97 (115) 97 02/08/20 10:20 83 128/74 02/08/20 10:20 128/74 02/08/20 10:15 98.5 83 18 128/74 (92) 96 02/08/20 09:00 Room Air 02/08/20 09:00 83 82 85 Intake and Output 02/08/20 02/09/20 19:00 07:00 Intake Total 800 ml 650 ml Balance 800 ml 650 ml Intake Oral 800 ml 650 ml # Voids 4 2 Objective General Appearance: obese male in NAD HEENT: normocephalic, atraumatic, anicteric, mucous membranes moist Respiratory/Chest: CTA Cardiovascular: regular rhythm Abdomen: normal bowel sounds, soft, non tender, obese Extremities: trace edema BLE Skin: no rash, Neurologic/Psychiatric: alert, oriented x 3, responsive Laboratory Tests 02/09/20 05:20: White Blood Count 7.9, Red Blood Count 4.52L, Hemoglobin 14.0L, Hematocrit 40.0L , Mean Corpuscular Volume 88, Mean Corpuscular Hemoglobin 30.9, Mean Corpuscular Hemoglobin Concent 34.9, Red Cell Distribution Width 11.8, Platelet Count 295, Mean Platelet Volume 5.7L, Neutrophils (%) (Auto) 56.5, Lymphocytes ( %) (Auto) 29.2, Monocytes (%) (Auto) 8.3, Eosinophils (%) (Auto) 4.6H, Basophils (%) (Auto) 1.4, Sodium Level 135L, Potassium Level 3.9, Chloride Level 100, Carbon Dioxide Level 24, Anion Gap 11, Blood Urea Nitrogen 13, Creatinine 0.8, Estimat Glomerular Filtration Rate > 60, Glucose Level 291H, Calcium Level 9.3 Current Medications Medications (Trade) Dose Ordered Sig/Rodney Route PRN Reason Start Time Stop Time Status Last Admin Dose Admin Acetaminophen (Tylenol) 650 mg Q4H PRN ORAL Mild Pain/Temp > 100.5 01/26/20 01:00 02/12/20 16:59 01/26/20 18:50 Aspirin (Ecotrin) 81 mg DAILY ORAL 01/23/20 09:00 02/28/20 08:59 02/08/20 10:20 Bupropion HCl (Wellbutrin SR) 150 mg EVERY 12 HOURS ORAL 01/22/20 21:00 02/13/20 08:59 02/08/20 10:20 Clopidogrel Bisulfate (Plavix) 75 mg DAILY ORAL 01/23/20 09:00 02/13/20 08:59 02/08/20 10:20 Dextrose (Dextrose 50%) 25 ml Q30M PRN IV Hypoglycemia 01/22/20 17:00 04/18/20 18:59 Dextrose (Dextrose 50%) 50 ml Q30M PRN IV Hypoglycemia 01/22/20 17:00 04/18/20 18:59 Gabapentin (Neurontin) 300 mg BEDTIME ORAL 01/22/20 21:00 02/12/20 22:29 02/08/20 20:23 Heparin Sodium (Porcine) (Heparin 5000 units/ml) 5,000 units EVERY 12 HOURS SUBQ 01/22/20 21:00 02/28/20 08:59 02/08/20 20:26 Insulin Aspart (NovoLOG) BEFORE MEALS AND HS SUBQ 01/22/20 21:00 04/18/20 20:59 02/09/20 06:59 Isosorbide Dinitrate (Isordil) 10 mg TID ORAL 01/22/20 18:00 02/13/20 17:59 02/08/20 17:31 Metoprolol Succinate (Toprol XL) 50 mg Q12HR ORAL 01/22/20 21:00 04/17/20 19:29 02/08/20 20:25 Morphine HCl (Morphine IR) 7.5 mg Q4H PRN ORAL severe pain 02/02/20 13:01 02/09/20 13:00 02/08/20 12:28 Nitroglycerin (Ntg) 0.4 mg Q5M PRN SL Prn Chest Pain 01/22/20 16:50 02/16/20 11:44 02/04/20 08:16 Ondansetron HCl (Zofran) 4 mg Q6H PRN IVP Nausea & Vomiting 01/22/20 18:00 02/12/20 17:59 02/01/20 17:54 Promethazine HCl/ Codeine (Phenergan with Codeine) 5 ml Q4H PRN ORAL For Cough 01/22/20 19:45 02/12/20 15:44 01/26/20 13:18 Theophylline (Jose-Dur) 100 mg EVERY 12 HOURS ORAL 01/22/20 21:00 02/13/20 08:59 02/08/20 20:24 Patricia Brewster DOG BREEDER Feb 09, 2020 08:15
--- NOTE | 2020-02-09 08:57 | General Progress Note ---
Assessment/Plan Problem List: (1) Diabetes ICD Codes: E11.9 - Type 2 diabetes mellitus without complications SNOMED: 66263016 (2) Hypothyroid ICD Codes: E03.9 - Hypothyroidism, unspecified SNOMED: 71222493 (3) Chest pain ICD Codes: R07.9 - Chest pain, unspecified SNOMED: 57552450 Status: stable, progressing Assessment/Plan: o2 pulm tx prn pain control dc to snf if clear Subjective Constitutional: Reports: weakness Allergies: Coded Allergies: No Known Allergies (Unverified , 12/08/19) All Systems: reviewed and negative except above Subjective sleepy in bed calm Objective Last 24 Hour Vital Signs Date Time Temp Pulse Resp B/P (MAP) Pulse Ox O2 Delivery O2 Flow Rate FiO2 02/09/20 04:00 97.4 69 19 142/82 (102) 100 69 02/08/20 21:00 Room Air 02/08/20 20:25 80 129/72 02/08/20 17:31 118/69 02/08/20 16:00 98.3 78 18 118/69 (85) 94 02/08/20 12:24 152/97 02/08/20 12:03 98.8 88 18 152/97 (115) 97 02/08/20 10:20 83 128/74 02/08/20 10:20 128/74 02/08/20 10:15 98.5 83 18 128/74 (92) 96 02/08/20 09:00 Room Air 02/08/20 09:00 83 82 85 Intake and Output 02/08/20 02/09/20 19:00 07:00 Intake Total 800 ml 650 ml Balance 800 ml 650 ml Intake Oral 800 ml 650 ml # Voids 4 2 Laboratory Tests 02/09/20 05:20: White Blood Count 7.9, Red Blood Count 4.52L, Hemoglobin 14.0L, Hematocrit 40.0L , Mean Corpuscular Volume 88, Mean Corpuscular Hemoglobin 30.9, Mean Corpuscular Hemoglobin Concent 34.9, Red Cell Distribution Width 11.8, Platelet Count 295, Mean Platelet Volume 5.7L, Neutrophils (%) (Auto) 56.5, Lymphocytes ( %) (Auto) 29.2, Monocytes (%) (Auto) 8.3, Eosinophils (%) (Auto) 4.6H, Basophils (%) (Auto) 1.4, Sodium Level 135L, Potassium Level 3.9, Chloride Level 100, Carbon Dioxide Level 24, Anion Gap 11, Blood Urea Nitrogen 13, Creatinine 0.8, Estimat Glomerular Filtration Rate > 60, Glucose Level 291H, Calcium Level 9.3 Height (Feet): 5 Height (Inches): 4.00 Weight (Pounds): 250 General Appearance: lethargic EENT: normal ENT inspection Neck: normal alignment Cardiovascular: normal peripheral pulses, normal rate, regular rhythm Respiratory/Chest: chest wall non-tender, lungs clear, normal breath sounds Abdomen: normal bowel sounds, non tender, soft Extremities: normal inspection Edema: no edema noted Arm (L), no edema noted Arm (R), no edema noted Leg (L), no edema noted Leg (R), no edema noted Pedal (L), no edema noted Pedal (R), no edema noted Generalized Neurologic: motor weakness Skin: normal pigmentation, warm/dry Objective sl chest pain Fermín Griggs DO Feb 09, 2020 08:57
[2020-02-09] MEDS: BuPROPion SR 150mg tab ORAL SCH ×2 (08:59→20:57)
[2020-02-09] MEDS: Aspirin EC 81mg tab ORAL SCH (09:00)
[2020-02-09] MEDS: Metoprolol Succinate XL 50mg tab ORAL SCH ×2 (09:00→20:42)
[2020-02-09] MEDS: Theophylline ER 100mg ORAL SCH ×2 (09:00→20:42)
[2020-02-09] MEDS: Heparin 5000 units/ml inj SUBQ SCH ×2 (09:03→20:57)
--- NOTE | 2020-02-09 11:29 | Diagnostic Imaging Report ---
EXAM: XR Chest, 1 View CLINICAL HISTORY: SOB TECHNIQUE: Frontal view of the chest. COMPARISON: 01/20/20. FINDINGS: Lungs: Hypoventilatory exam. No clear consolidation. Basilar atelectasis again noted. No overt pulmonary edema. Pleural space: Unremarkable. No pneumothorax. Heart/mediastinum: Median sternotomy for CABG. Calcified aorta Bones/joints: Unremarkable. IMPRESSION: Redemonstrated hypoventilatory study with basilar atelectasis. No definite consolidation. CABG. No overt edema.
[2020-02-09 12:00] VITALS: BP 158/102
[2020-02-09 12:30] VITALS: BP 165/85
--- NOTE | 2020-02-09 13:59 | General Progress Note ---
Assessment/Plan Assessment/Plan: (1) Lumbar degenerative disk disease (2) Lumbar radiculopathy (3) Lumbar spondylosis (4) H/o polysubstance abuse Patient will be continued on Morphine. D/w Dr. Bull and he concurred. Subjective Date patient seen: Feb 09, 2020 Time patient seen: 01:15 - pm Allergies: Coded Allergies: No Known Allergies (Unverified , 12/08/19) Subjective Constitutional: Reports: no symptoms HEENT: Reports: no symptoms Cardiovascular: Reports: no symptoms Respiratory: Reports: no symptoms Gastrointestinal/Abdominal: Reports: no symptoms Genitourinary: Reports: no symptoms Neurologic/Psychiatric: Reports: no symptoms Endocrine: Reports: no symptoms Hematologic/Lymphatic: Reports: no symptoms Subjective Patient reports no changes to pain which has stable on the Morphine. No new complaints at this time Objective Last 24 Hour Vital Signs Date Time Temp Pulse Resp B/P (MAP) Pulse Ox O2 Delivery O2 Flow Rate FiO2 02/09/20 12:54 158/102 02/09/20 09:00 Room Air 02/09/20 09:00 75 75 79 02/09/20 09:00 75 139/78 02/09/20 08:59 139/78 02/09/20 08:00 97.9 75 20 139/78 (98) 95 02/09/20 04:00 97.4 69 19 142/82 (102) 100 69 02/08/20 21:00 Room Air 02/08/20 20:25 80 129/72 02/08/20 17:31 118/69 02/08/20 16:00 98.3 78 18 118/69 (85) 94 Intake and Output 02/08/20 02/09/20 19:00 07:00 Intake Total 800 ml 650 ml Balance 800 ml 650 ml Intake Oral 800 ml 650 ml # Voids 4 2 Laboratory Tests 02/09/20 05:20: White Blood Count 7.9, Red Blood Count 4.52L, Hemoglobin 14.0L, Hematocrit 40.0L , Mean Corpuscular Volume 88, Mean Corpuscular Hemoglobin 30.9, Mean Corpuscular Hemoglobin Concent 34.9, Red Cell Distribution Width 11.8, Platelet Count 295, Mean Platelet Volume 5.7L, Neutrophils (%) (Auto) 56.5, Lymphocytes ( %) (Auto) 29.2, Monocytes (%) (Auto) 8.3, Eosinophils (%) (Auto) 4.6H, Basophils (%) (Auto) 1.4, Sodium Level 135L, Potassium Level 3.9, Chloride Level 100, Carbon Dioxide Level 24, Anion Gap 11, Blood Urea Nitrogen 13, Creatinine 0.8, Estimat Glomerular Filtration Rate > 60, Glucose Level 291H, Calcium Level 9.3 Height (Feet): 5 Height (Inches): 4.00 Weight (Pounds): 244 Objective General Appearance: no apparent distress, alert EENT: PERRL/EOMI, normal ENT inspection Neck: non-tender, normal alignment Cardiovascular: normal rate, regular rhythm Respiratory/Chest: lungs clear, normal breath sounds Abdomen: non tender, soft Extremities: non-tender, normal inspection Edema: no edema noted Generalized Neurologic: alert, oriented x 3 Skin: warm/dry Steve Walker Feb 09, 2020 13:59
[2020-02-09] MEDS ORDERED: Morphine IR 15mg tab ORAL PRN (14:00)
[2020-02-09 16:00] VITALS: BP 125/75
--- NOTE | 2020-02-09 18:51 | Cardiology Progress Note ---
Assessment/Plan Assessment/Plan is comfortable, his chest pain probably is not cardiac Subjective Subjective Reports that still has chest pain, but not at the [facility] Objective Last 24 Hour Vital Signs Date Time Temp Pulse Resp B/P (MAP) Pulse Ox O2 Delivery O2 Flow Rate FiO2 02/09/20 17:24 125/75 02/09/20 16:00 98.4 84 20 125/75 (92) 95 02/09/20 12:54 158/102 02/09/20 12:30 86 165/85 (111) 02/09/20 12:00 98.2 79 20 158/102 (120) 97 02/09/20 09:00 Room Air 02/09/20 09:00 75 75 79 02/09/20 09:00 75 139/78 02/09/20 08:59 139/78 02/09/20 08:00 97.9 75 20 139/78 (98) 95 02/09/20 04:00 97.4 69 19 142/82 (102) 100 69 02/08/20 21:00 Room Air 02/08/20 20:25 80 129/72 General Appearance: no apparent distress EENT: PERRL/EOMI Neck: supple Rhythm: NSR Respiratory/Chest: no respiratory distress Abdomen: no mass Intake and Output 02/08/20 02/09/20 19:00 07:00 Intake Total 800 ml 650 ml Balance 800 ml 650 ml Intake Oral 800 ml 650 ml # Voids 4 2 Laboratory Tests Test 02/09/20 05:20 White Blood Count 7.9 K/UL (4.8-10.8) Red Blood Count 4.52 M/UL (4.70-6.10) L Hemoglobin 14.0 G/DL (14.2-18.0) L Hematocrit 40.0 % (42.0-52.0) L Mean Corpuscular Volume 88 FL (80-99) Mean Corpuscular Hemoglobin 30.9 PG (27.0-31.0) Mean Corpuscular Hemoglobin Concent 34.9 G/DL (32.0-36.0) Red Cell Distribution Width 11.8 % (11.6-14.8) Platelet Count 295 K/UL (150-450) Mean Platelet Volume 5.7 FL (6.5-10.1) L Neutrophils (%) (Auto) 56.5 % (45.0-75.0) Lymphocytes (%) (Auto) 29.2 % (20.0-45.0) Monocytes (%) (Auto) 8.3 % (1.0-10.0) Eosinophils (%) (Auto) 4.6 % (0.0-3.0) H Basophils (%) (Auto) 1.4 % (0.0-2.0) Sodium Level 135 MMOL/L (136-145) L Potassium Level 3.9 MMOL/L (3.5-5.1) Chloride Level 100 MMOL/L (98-107) Carbon Dioxide Level 24 MMOL/L (21-32) Anion Gap 11 mmol/L (5-15) Blood Urea Nitrogen 13 mg/dL (7-18) Creatinine 0.8 MG/DL (0.55-1.30) Estimat Glomerular Filtration Rate > 60 mL/min (>60) Glucose Level 291 MG/DL (74-106) H Calcium Level 9.3 MG/DL (8.5-10.1) Nelda Ladd MD Feb 09, 2020 18:51
[2020-02-09 20:00] VITALS: BP 134/77
[2020-02-10] VITALS: BP 138/71
[2020-02-10] MEDS: NovoLOG Insulin Flexpen SUBQ SCH ×2 (06:55→12:31)
[2020-02-10 07:12] LABS: BASOPHILS % (AUTO) 1.4 % (0.0-2.0); HEMATOCRIT 40.5 % (42.0-52.0); HEMOGLOBIN 14.7 G/DL (14.2-18.0); LYMPHOCYTES % (AUTO) 26.8 % (20.0-45.0); MEAN CORPUSCULAR VOLUME 87 FL (80-99); MONOCYTES % (AUTO) 7.1 % (1.0-10.0); NEUTROPHILS % (AUTO) 60.7 % (45.0-75.0); PLATELET COUNT 305 K/UL (150-450); RED BLOOD COUNT 4.67 M/UL (4.70-6.10); WHITE BLOOD COUNT 8.6 K/UL (4.8-10.8)
[2020-02-10 07:15] LABS: ANION GAP 14 mmol/L (5-15); BLOOD UREA NITROGEN 13 mg/dL (7-18); CARBON DIOXIDE 22 MMOL/L (21-32); CHLORIDE 100 MMOL/L (98-107); CREATININE 0.9 MG/DL (0.55-1.30); POTASSIUM 3.7 MMOL/L (3.5-5.1); SODIUM 136 MMOL/L (136-145)
[2020-02-10 08:00] VITALS: BP 130/76
[2020-02-10] MEDS: Metoprolol Succinate XL 50mg tab ORAL SCH (08:37)
[2020-02-10] MEDS: Theophylline ER 100mg ORAL SCH (08:37)
[2020-02-10] MEDS: Aspirin EC 81mg tab ORAL SCH (08:38)
[2020-02-10] MEDS: BuPROPion SR 150mg tab ORAL SCH (08:38)
[2020-02-10] MEDS: Heparin 5000 units/ml inj SUBQ SCH (08:41)
--- NOTE | 2020-02-10 09:29 | General Progress Note ---
Assessment/Plan Problem List: (1) Diabetes ICD Codes: E11.9 - Type 2 diabetes mellitus without complications SNOMED: 82282028 (2) Hypothyroid ICD Codes: E03.9 - Hypothyroidism, unspecified SNOMED: 50527000 (3) Chest pain ICD Codes: R07.9 - Chest pain, unspecified SNOMED: 39598005 Status: stable, progressing Assessment/Plan: o2 pulm tx prn pain control dc to snf if clear Subjective Constitutional: Reports: weakness Allergies: Coded Allergies: No Known Allergies (Unverified , 12/08/19) All Systems: reviewed and negative except above Subjective sleepy in bed calm Objective Last 24 Hour Vital Signs Date Time Temp Pulse Resp B/P (MAP) Pulse Ox O2 Delivery O2 Flow Rate FiO2 02/10/20 09:07 Room Air 02/10/20 08:37 78 138/76 02/10/20 08:37 130/76 02/10/20 08:00 78 74 78 02/10/20 08:00 98.0 78 20 130/76 (94) 97 02/10/20 00:00 98.0 79 18 138/71 (93) 96 02/09/20 21:00 Room Air 02/09/20 20:42 78 153/72 02/09/20 20:25 80 18 95 Room Air 21 02/09/20 20:00 97.6 78 16 134/77 (96) 97 02/09/20 17:24 125/75 02/09/20 16:00 98.4 84 20 125/75 (92) 95 02/09/20 12:54 158/102 02/09/20 12:30 86 165/85 (111) 02/09/20 12:00 98.2 79 20 158/102 (120) 97 Intake and Output 02/09/20 02/10/20 19:00 07:00 Intake Total 850 ml 600 ml Balance 850 ml 600 ml Intake Oral 850 ml 600 ml # Voids 2 2 # Bowel Movements 2 Laboratory Tests 02/10/20 04:55: White Blood Count 8.6, Red Blood Count 4.67L, Hemoglobin 14.7, Hematocrit 40.5L , Mean Corpuscular Volume 87, Mean Corpuscular Hemoglobin 31.4H, Mean Corpuscular Hemoglobin Concent 36.3H, Red Cell Distribution Width 13.0, Platelet Count 305, Mean Platelet Volume 5.3L, Neutrophils (%) (Auto) 60.7, Lymphocytes (%) (Auto) 26.8, Monocytes (%) (Auto) 7.1, Eosinophils (%) (Auto) 4.0H, Basophils (%) (Auto) 1.4, Sodium Level 136, Potassium Level 3.7, Chloride Level 100, Carbon Dioxide Level 22, Anion Gap 14, Blood Urea Nitrogen 13, Creatinine 0.9, Estimat Glomerular Filtration Rate > 60, Glucose Level 312H, Calcium Level 9.0 Height (Feet): 5 Height (Inches): 4.00 Weight (Pounds): 246 General Appearance: lethargic EENT: normal ENT inspection Neck: normal alignment Cardiovascular: normal peripheral pulses, normal rate, regular rhythm Respiratory/Chest: chest wall non-tender, lungs clear, normal breath sounds Abdomen: normal bowel sounds, non tender, soft Extremities: normal inspection Edema: no edema noted Arm (L), no edema noted Arm (R), no edema noted Leg (L), no edema noted Leg (R), no edema noted Pedal (L), no edema noted Pedal (R), no edema noted Generalized Neurologic: motor weakness Skin: normal pigmentation, warm/dry Objective sl chest pain Fermín Griggs DO Feb 10, 2020 09:29
--- NOTE | 2020-02-10 11:54 | Infectious Diseases Prog Note ---
Assessment/Plan Assessment/Plan ASSESSMENT: The patient is a 54-year-old male with: Afebrile No leukocytosis or leukopenia SOB, sp SP empiric CAP rx Ddx: CHF, COPD, PNA Covid-19 : Negative -02/08 CXR neg History of CHF. History of CAD History of hypothyroidism. History of hypertension. History of chronic obstructive pulmonary disease. Liver cirrhosis. History of drug abuse in the past. GERD PLAN: off of AB Rx. 02/19 Sp doxycycline and Rocephin day # 5/ Monitor CBC. Monitor BMP Monitor chest x-ray. ELBERT RN Subjective Allergies: Coded Allergies: No Known Allergies (Unverified , 12/08/19) Subjective afebrile off abx no leukocytosis Objective Vital Signs Last 24 Hour Vital Signs Date Time Temp Pulse Resp B/P (MAP) Pulse Ox O2 Delivery O2 Flow Rate FiO2 02/10/20 09:07 Room Air 02/10/20 08:37 78 138/76 02/10/20 08:37 130/76 02/10/20 08:00 78 74 78 02/10/20 08:00 98.0 78 20 130/76 (94) 97 02/10/20 00:00 98.0 79 18 138/71 (93) 96 02/09/20 21:00 Room Air 02/09/20 20:42 78 153/72 02/09/20 20:25 80 18 95 Room Air 21 02/09/20 20:00 97.6 78 16 134/77 (96) 97 02/09/20 17:24 125/75 02/09/20 16:00 98.4 84 20 125/75 (92) 95 02/09/20 12:54 158/102 02/09/20 12:30 86 165/85 (111) 02/09/20 12:00 98.2 79 20 158/102 (120) 97 Height (Feet): 5 Height (Inches): 4.00 Weight (Pounds): 246 Objective HEENT: atraumatic Respiratory/Chest: no respiratory distress Cardiovascular: regular rhythm Abdomen: no organomegaly Laboratory Tests Test 02/10/20 04:55 White Blood Count 8.6 K/UL (4.8-10.8) Red Blood Count 4.67 M/UL (4.70-6.10) L Hemoglobin 14.7 G/DL (14.2-18.0) Hematocrit 40.5 % (42.0-52.0) L Mean Corpuscular Volume 87 FL (80-99) Mean Corpuscular Hemoglobin 31.4 PG (27.0-31.0) H Mean Corpuscular Hemoglobin Concent 36.3 G/DL (32.0-36.0) H Red Cell Distribution Width 13.0 % (11.6-14.8) Platelet Count 305 K/UL (150-450) Mean Platelet Volume 5.3 FL (6.5-10.1) L Neutrophils (%) (Auto) 60.7 % (45.0-75.0) Lymphocytes (%) (Auto) 26.8 % (20.0-45.0) Monocytes (%) (Auto) 7.1 % (1.0-10.0) Eosinophils (%) (Auto) 4.0 % (0.0-3.0) H Basophils (%) (Auto) 1.4 % (0.0-2.0) Sodium Level 136 MMOL/L (136-145) Potassium Level 3.7 MMOL/L (3.5-5.1) Chloride Level 100 MMOL/L (98-107) Carbon Dioxide Level 22 MMOL/L (21-32) Anion Gap 14 mmol/L (5-15) Blood Urea Nitrogen 13 mg/dL (7-18) Creatinine 0.9 MG/DL (0.55-1.30) Estimat Glomerular Filtration Rate > 60 mL/min (>60) Glucose Level 312 MG/DL (74-106) H Calcium Level 9.0 MG/DL (8.5-10.1) Current Medications Medications (Trade) Dose Ordered Sig/Rodney Route PRN Reason Start Time Stop Time Status Last Admin Dose Admin Acetaminophen (Tylenol) 650 mg Q4H PRN ORAL Mild Pain/Temp > 100.5 01/26/20 01:00 02/12/20 16:59 01/26/20 18:50 Albuterol/ Ipratropium (Albuterol/ Ipratropium) 3 ml Q4H PRN HHN Shortness of Breath 02/09/20 08:15 02/14/20 08:14 Aspirin (Ecotrin) 81 mg DAILY ORAL 01/23/20 09:00 02/28/20 08:59 02/10/20 08:38 Bupropion HCl (Wellbutrin SR) 150 mg EVERY 12 HOURS ORAL 01/22/20 21:00 02/13/20 08:59 02/10/20 08:38 Clopidogrel Bisulfate (Plavix) 75 mg DAILY ORAL 01/23/20 09:00 02/13/20 08:59 02/10/20 08:38 Dextrose (Dextrose 50%) 25 ml Q30M PRN IV Hypoglycemia 01/22/20 17:00 04/18/20 18:59 Dextrose (Dextrose 50%) 50 ml Q30M PRN IV Hypoglycemia 01/22/20 17:00 04/18/20 18:59 Gabapentin (Neurontin) 300 mg BEDTIME ORAL 01/22/20 21:00 02/12/20 22:29 02/09/20 20:42 Heparin Sodium (Porcine) (Heparin 5000 units/ml) 5,000 units EVERY 12 HOURS SUBQ 01/22/20 21:00 02/28/20 08:59 02/10/20 08:41 Insulin Aspart (NovoLOG) BEFORE MEALS AND HS SUBQ 01/22/20 21:00 04/18/20 20:59 02/10/20 06:55 Isosorbide Dinitrate (Isordil) 10 mg TID ORAL 01/22/20 18:00 02/13/20 17:59 02/10/20 08:37 Metoprolol Succinate (Toprol XL) 50 mg Q12HR ORAL 01/22/20 21:00 04/17/20 19:29 02/10/20 08:37 Morphine HCl (Morphine IR) 7.5 mg Q4H PRN ORAL Severe Pain (Pain Scale 7-10) 02/09/20 14:00 02/16/20 13:59 Nitroglycerin (Ntg) 0.4 mg Q5M PRN SL Prn Chest Pain 01/22/20 16:50 02/16/20 11:44 02/04/20 08:16 Ondansetron HCl (Zofran) 4 mg Q6H PRN IVP Nausea & Vomiting 01/22/20 18:00 02/12/20 17:59 02/01/20 17:54 Promethazine HCl/ Codeine (Phenergan with Codeine) 5 ml Q4H PRN ORAL For Cough 01/22/20 19:45 02/12/20 15:44 01/26/20 13:18 Theophylline (Jose-Dur) 100 mg EVERY 12 HOURS ORAL 01/22/20 21:00 02/13/20 08:59 02/10/20 08:37 Kady Salas M.D. Feb 10, 2020 11:54
[2020-02-10 12:00] VITALS: BP 174/99
[2020-02-10 12:29] VITALS: BP 174/99
--- NOTE | 2020-02-10 14:03 | General Progress Note ---
Assessment/Plan Assessment/Plan: (1) Lumbar degenerative disk disease (2) Lumbar radiculopathy (3) Lumbar spondylosis (4) H/o polysubstance abuse Patient will be continued on Morphine. D/w Dr. Bull and he concurred. Subjective Date patient seen: Feb 10, 2020 Time patient seen: 01:30 - pm Allergies: Coded Allergies: No Known Allergies (Unverified , 12/08/19) Subjective Constitutional: Reports: no symptoms HEENT: Reports: no symptoms Cardiovascular: Reports: no symptoms Respiratory: Reports: no symptoms Gastrointestinal/Abdominal: Reports: no symptoms Genitourinary: Reports: no symptoms Neurologic/Psychiatric: Reports: no symptoms Endocrine: Reports: no symptoms Hematologic/Lymphatic: Reports: no symptoms Subjective Patient has been in mild pain and using the Morphine as needed, No new complaints at this time. Objective Last 24 Hour Vital Signs Date Time Temp Pulse Resp B/P (MAP) Pulse Ox O2 Delivery O2 Flow Rate FiO2 02/10/20 12:29 174/99 02/10/20 12:00 97.7 85 20 174/99 (124) 02/10/20 09:07 Room Air 02/10/20 08:37 78 138/76 02/10/20 08:37 130/76 02/10/20 08:00 78 74 78 02/10/20 08:00 98.0 78 20 130/76 (94) 97 02/10/20 00:00 98.0 79 18 138/71 (93) 96 02/09/20 21:00 Room Air 02/09/20 20:42 78 153/72 02/09/20 20:25 80 18 95 Room Air 21 02/09/20 20:00 97.6 78 16 134/77 (96) 97 02/09/20 17:24 125/75 02/09/20 16:00 98.4 84 20 125/75 (92) 95 Intake and Output 02/09/20 02/10/20 19:00 07:00 Intake Total 850 ml 600 ml Balance 850 ml 600 ml Intake Oral 850 ml 600 ml # Voids 2 2 # Bowel Movements 2 Laboratory Tests 02/10/20 04:55: White Blood Count 8.6, Red Blood Count 4.67L, Hemoglobin 14.7, Hematocrit 40.5L , Mean Corpuscular Volume 87, Mean Corpuscular Hemoglobin 31.4H, Mean Corpuscular Hemoglobin Concent 36.3H, Red Cell Distribution Width 13.0, Platelet Count 305, Mean Platelet Volume 5.3L, Neutrophils (%) (Auto) 60.7, Lymphocytes (%) (Auto) 26.8, Monocytes (%) (Auto) 7.1, Eosinophils (%) (Auto) 4.0H, Basophils (%) (Auto) 1.4, Sodium Level 136, Potassium Level 3.7, Chloride Level 100, Carbon Dioxide Level 22, Anion Gap 14, Blood Urea Nitrogen 13, Creatinine 0.9, Estimat Glomerular Filtration Rate > 60, Glucose Level 312H, Calcium Level 9.0 Height (Feet): 5 Height (Inches): 4.00 Weight (Pounds): 246 Objective General Appearance: no apparent distress, alert EENT: PERRL/EOMI, normal ENT inspection Neck: non-tender, normal alignment Cardiovascular: normal rate, regular rhythm Respiratory/Chest: lungs clear, normal breath sounds Abdomen: non tender, soft Extremities: non-tender, normal inspection Edema: no edema noted Generalized Neurologic: alert, oriented x 3 Skin: warm/dry Steve Walker Feb 10, 2020 14:03
--- NOTE | 2020-02-10 14:18 | Pulmonology Progress Note ---
Assessment/Plan Problems: (1) Dizziness (2) Acute bronchitis (3) Viral syndrome (4) Mild diastolic dysfunction (5) Cardiac left ventricular ejection fraction greater than 40 percent (6) HTN (hypertension) (7) Hypothyroid (8) Diabetes Assessment/Plan cxr was negative yesterday doing better no new complains doing better sputum culture and blood cultures are negative COVID-19 virus negative wll reviewed dvt prophylaxis. Subjective ROS Limited/Unobtainable: No Constitutional: Reports: no symptoms HEENT: Repors: no symptoms Respiratory: Reports: no symptoms Allergies: Coded Allergies: No Known Allergies (Unverified , 12/08/19) Objective Last 24 Hour Vital Signs Date Time Temp Pulse Resp B/P (MAP) Pulse Ox O2 Delivery O2 Flow Rate FiO2 02/10/20 12:29 174/99 02/10/20 12:00 97.7 85 20 174/99 (124) 02/10/20 09:07 Room Air 02/10/20 08:37 78 138/76 02/10/20 08:37 130/76 02/10/20 08:00 78 74 78 02/10/20 08:00 98.0 78 20 130/76 (94) 97 02/10/20 00:00 98.0 79 18 138/71 (93) 96 02/09/20 21:00 Room Air 02/09/20 20:42 78 153/72 02/09/20 20:25 80 18 95 Room Air 21 02/09/20 20:00 97.6 78 16 134/77 (96) 97 02/09/20 17:24 125/75 02/09/20 16:00 98.4 84 20 125/75 (92) 95 Intake and Output 02/09/20 02/10/20 19:00 07:00 Intake Total 850 ml 600 ml Balance 850 ml 600 ml Intake Oral 850 ml 600 ml # Voids 2 2 # Bowel Movements 2 Objective General Appearance: WD/WN HEENT: normocephalic, atraumatic Respiratory/Chest: chest wall non-tender, lungs clear Breasts: no masses Cardiovascular: normal peripheral pulses Abdomen: normal bowel sounds, soft, non tender Genitourinary: normal external genitalia Extremities: no cyanosis Skin: no rash Neurologic/Psychiatric: hematology technologist II-XII 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 Laboratory Tests 02/10/20 04:55: White Blood Count 8.6, Red Blood Count 4.67L, Hemoglobin 14.7, Hematocrit 40.5L , Mean Corpuscular Volume 87, Mean Corpuscular Hemoglobin 31.4H, Mean Corpuscular Hemoglobin Concent 36.3H, Red Cell Distribution Width 13.0, Platelet Count 305, Mean Platelet Volume 5.3L, Neutrophils (%) (Auto) 60.7, Lymphocytes (%) (Auto) 26.8, Monocytes (%) (Auto) 7.1, Eosinophils (%) (Auto) 4.0H, Basophils (%) (Auto) 1.4, Sodium Level 136, Potassium Level 3.7, Chloride Level 100, Carbon Dioxide Level 22, Anion Gap 14, Blood Urea Nitrogen 13, Creatinine 0.9, Estimat Glomerular Filtration Rate > 60, Glucose Level 312H, Calcium Level 9.0 Current Medications Medications (Trade) Dose Ordered Sig/Rodney Route PRN Reason Start Time Stop Time Status Last Admin Dose Admin Acetaminophen (Tylenol) 650 mg Q4H PRN ORAL Mild Pain/Temp > 100.5 01/26/20 01:00 02/12/20 16:59 01/26/20 18:50 Albuterol/ Ipratropium (Albuterol/ Ipratropium) 3 ml Q4H PRN HHN Shortness of Breath 02/09/20 08:15 02/14/20 08:14 Aspirin (Ecotrin) 81 mg DAILY ORAL 01/23/20 09:00 02/28/20 08:59 02/10/20 08:38 Bupropion HCl (Wellbutrin SR) 150 mg EVERY 12 HOURS ORAL 01/22/20 21:00 02/13/20 08:59 02/10/20 08:38 Clopidogrel Bisulfate (Plavix) 75 mg DAILY ORAL 01/23/20 09:00 02/13/20 08:59 02/10/20 08:38 Dextrose (Dextrose 50%) 25 ml Q30M PRN IV Hypoglycemia 01/22/20 17:00 04/18/20 18:59 Dextrose (Dextrose 50%) 50 ml Q30M PRN IV Hypoglycemia 01/22/20 17:00 04/18/20 18:59 Gabapentin (Neurontin) 300 mg BEDTIME ORAL 01/22/20 21:00 02/12/20 22:29 02/09/20 20:42 Heparin Sodium (Porcine) (Heparin 5000 units/ml) 5,000 units EVERY 12 HOURS SUBQ 01/22/20 21:00 02/28/20 08:59 02/10/20 08:41 Insulin Aspart (NovoLOG) BEFORE MEALS AND HS SUBQ 01/22/20 21:00 04/18/20 20:59 02/10/20 12:31 Isosorbide Dinitrate (Isordil) 10 mg TID ORAL 01/22/20 18:00 02/13/20 17:59 02/10/20 12:29 Metoprolol Succinate (Toprol XL) 50 mg Q12HR ORAL 01/22/20 21:00 04/17/20 19:29 02/10/20 08:37 Morphine HCl (Morphine IR) 7.5 mg Q4H PRN ORAL Severe Pain (Pain Scale 7-10) 02/09/20 14:00 02/16/20 13:59 Nitroglycerin (Ntg) 0.4 mg Q5M PRN SL Prn Chest Pain 01/22/20 16:50 02/16/20 11:44 02/04/20 08:16 Ondansetron HCl (Zofran) 4 mg Q6H PRN IVP Nausea & Vomiting 01/22/20 18:00 02/12/20 17:59 02/01/20 17:54 Promethazine HCl/ Codeine (Phenergan with Codeine) 5 ml Q4H PRN ORAL For Cough 01/22/20 19:45 02/12/20 15:44 01/26/20 13:18 Theophylline (Jose-Dur) 100 mg EVERY 12 HOURS ORAL 01/22/20 21:00 02/13/20 08:59 02/10/20 08:37 Richard Hood MD Feb 10, 2020 14:18
--- NOTE | 2020-02-10 22:45 | Consultation ---
DATE OF CONSULTATION: 02/10/2020 ENDOCRINOLOGY CONSULTATION CONSULTING PHYSICIAN: Shon Maldonado M.D. REFERRING PHYSICIAN: Fermín Griggs D.O. REASON FOR CONSULTATION: Diabetes management. HISTORY OF PRESENT ILLNESS: The patient is a 54-year-old male who is known to me from previous admissions, history of diabetes with high dose insulin requirement, history of coronary artery disease status post coronary artery bypass graft. The patient was admitted to the hospital from senior living facility for CHF exacerbation. I was called to manage diabetes. PAST MEDICAL HISTORY: 1. Type 2 diabetes on insulin. 2. Coronary artery disease. 3. Hyperlipidemia. 4. Hypertension. 5. Hypothyroidism. 6. Depression. 7. Amphetamine abuse. PAST SURGICAL HISTORY: Coronary artery bypass graft. SOCIAL HISTORY: No smoking. No alcohol. The patient has history of smoking. He is single. Used to use amphetamine. FAMILY HISTORY: Diabetes in brother, father, and mother. ALLERGIES TO MEDICATION: None. MEDICATIONS: Reviewed and reconciled. REVIEW OF SYSTEMS: A 12-point review of systems was performed. The pertinent positives and negative were mentioned in the history of present illness. LABORATORY VALUES: WBC 8, hemoglobin 14, hematocrit 40, platelets of 305. Sodium 136, potassium 3.7, chloride 100, bicarb 23, BUN 13, creatinine 0.9, glucose of 312. PHYSICAL EXAMINATION: GENERAL: Awake and alert. VITAL SIGNS: Blood pressure is 132/80, pulse 70, temperature 98.2. HEENT: Pupils are equal and reactive to light. Sclerae are anicteric. NECK: No JVD. No thyromegaly. No bruit. LUNGS: Clear. HEART: Regular rate and rhythm. ABDOMEN: Positive bowel sounds. EXTREMITIES: Positive for edema. DIAGNOSES: 1. CHF. 2. Diabetes, out of control. 3. Hypothyroidism. PLAN: 1. Levemir 66 units every morning. 2. NovoLog 33 units before each meal plus sliding scale. 3. Starlix 120 mg ac tid . 4. Januvia 100 mg daily. 5. Continue levothyroxine 50 mcg daily. 6. Further adjustment according to blood glucose values. Thank you, Dr. Griggs, for the courtesy of this consultation. Shon Maldonado M.D. DR: Farnaz JOB#: [id number] CC: KOLBY
--- NOTE | 2020-02-11 14:43 | Discharge Summary ---
Discharge Summary Discharge Summary _ DATE OF ADMISSION: 01/13/2020 DATE OF DISCHARGE: 02/10/2020 DISCHARGED BY: Dr. Griggs REASON FOR ADMISSION: 54 years old male with past medical history of diabetes mellitus, hypothyroidism , coronary artery disease, status post bypass surgery and stents, diabetes, lumbar degenerative disc disease, history of polysubstance abuse, presented to emergency department with chief complaint of chest pain, sore throat and cough. Patient reported shortness of breath on exertion. Patient reported dizziness upon standing. Patient reported occasional palpitations. Cough reported as productive with white-colored phlegm. No fever or chills. Upon evaluation patient was tachycardic and tachypneic , patient also was hypoxic and required 3 L of oxygen via nasal cannula. Laboratory work-up revealed no leukocytosis, hemoglobin 12.6 , hematocrit 36.8 , platelet count 283. Stable electrolytes and renal parameters. Lactic acid 2.0. Stable LFT. Troponin negative. Albumin 3.6. Urinalysis revealed no evidence of urinary tract infection. Chest x-ray documented interstitial congestion. Evidence of prior CABG noted. Patient was tested for COVID-19 infection. Patient admitted for chest pain, viral syndrome and acute bronchitis CONSULTANTS: firer electric locomotive Dr. Guthrie pulmonary Dr. Hood scout Dr. Maldonado ID specialist Dr. Taylor pain specialist Dr. Bull HOSPITAL COURSE: Patient initially admitted to monitored floor and started on empiric antibiotics. Supplemental oxygen provided and titrated to keep pulse oximetry above 92%. Nebulizing treatment with bronchodilator provided. Blood cultures were negative. Influenza screen was negative. Sputum culture was negative. Stool for C. difficile was negative. COVID-19 was not detected. Isolation was discontinued. Antibiotic stopped. Patient remained afebrile ,no leukocytosis, no leukopenia. DVT prophylaxis provided. Prior to discharge pulse oximetry stable on room air. Patient was followed-up with chest x-ray , no evidence of pneumonia. Serial troponin were negative. EKG revealed no acute ischemic changes. Patient was ruled out for acute [place]. Echocardiogram revealed preserved ejection fraction 55 to 60% , no evidence of wall motion abnormality. Per firer electric locomotive, patient had chronic recurrent chest pain, possibly radicular, no evidence of myonecrosis. Patient was continued with dual antiplatelet therapy and nitrate. Patient initially started on Lasix for mild diastolic dysfunction, which later was discontinued. Renal parameters and electrolytes were closely monitored ,nephrotoxins were avoided , and electrolytes corrected as needed. Blood sugar was managed as per scout recommendation. Patient was on long-acting Levemir, pre-meal short acting NovoLog plus sliding scale of insulin. Patient started on Starlix and Januvia. Levothyroxine continued. Diabetic teaching provided regarding diabetic diet , and compliance with medication and diet was stressed. Pain management was addressed as per pain specialist recommendation. Patient clinically stabilized and was ready for discharge. FINAL DIAGNOSES: Acute bronchitis Possible pneumonia Viral syndrome Suspected COVID-19 - ruled out Chronic recurrent chest pain, no evidence of myonecrosis Coronary artery disease with history of CABG and previous stenting Obesity Possible small vessel coronary disease Mild diastolic dysfunction Diabetes mellitus out of control Hypertension Hypothyroidism Obesity Lumbar degenerative disc disease Lumbar radiculopathy Lumbar spondylosis History of polysubstance abuse DISCHARGE MEDICATIONS: See Medication Reconciliation list. DISCHARGE INSTRUCTIONS: Patient was discharged home to his mother . Follow-up with primary care provider in 1 week. I have been assigned to dictate discharge summary for this account. I was not involved in the patient's management. Patricia Brewster NP Feb 11, 2020 14:43
== END 2020-02-10 14:15 | disposition home or self-care (01) | DRG 202 ==
LOC: EDBD 14:46 → EDUNIT# 14:46 → EMR 16:36 → 2E 19:01 → EDBEDREQ 20:41 → 4E 01-22 16:09 → 3E 02-01 14:20
DX: J20.9 Acute bronchitis, unspecified (principal); J18.9 Pneumonia, unspecified organism; I50.33 Acute on chronic diastolic (congestive) heart failure; E03.9 Hypothyroidism, unspecified; I25.10 Atherosclerotic heart disease of native coronary artery without angina pectoris; Z95.1 Presence of aortocoronary bypass graft; Z95.5 Presence of coronary angioplasty implant and graft; Z79.82 Long term (current) use of aspirin; Z79.4 Long term (current) use of insulin; E11.65 Type 2 diabetes mellitus with hyperglycemia; B34.9 Viral infection, unspecified; G89.29 Other chronic pain; R07.9 Chest pain, unspecified; E66.9 Obesity, unspecified; M51.16 Intervertebral disc disorders with radiculopathy, lumbar region; M47.896 Other spondylosis, lumbar region; F19.11 Other psychoactive substance abuse, in remission; Z59.0 Homelessness; I25.2 Old myocardial infarction; Z87.891 Personal history of nicotine dependence; K74.60 Unspecified cirrhosis of liver; K21.9 Gastro-esophageal reflux disease without esophagitis
CPT/HCPCS: 36415; 70551; 71045; 80048; 80053; 80061; 81003; 82550; 82962; 83605; 83735; 83880; 84100; 84484; 85025; 85651; 86140; 86710; 87040; 87070; 87081; 87205; 87324; 87635; 93005; 93306; 94664; 96361; 96374; 97803; 99285; J1815; J2405; J7030